=== PATIENT | female | born 1975 | race Caucasian/White ===

== ENCOUNTER 2024-01-11 14:47 | Outpatient (CLI) | payer OTHER, SELFPAY ==
[2024-01-11 15:31] LABS: Absolute Lymphocyte Count 1.94 X10^3/uL (0.83-4.51); Absolute Neutrophil Count 5.7 X10^3/uL (2.0-7.7); Basophil# 0.07 X10^3/uL; Basophil% 0.8 % (0-1); Eosinophil# 0.47 X10^3/uL; Eosinophils% 5.4 % (0-5); Hematocrit 43.3 % (37-47); Hemoglobin 14.6 g/dL (12.0-15.0); Lymphocyte # 1.94 X10^3/ul (0.83-4.51); Lymphocyte % 22.2 % (19-41); Mean Corp Hgb Conc 33.7 g/dL (32-36); Mean Corpuscular Hgb 30.1 pg (27.0-32.0); Mean Corpuscular Volume 89.3 fL (81-99); Mean Platelet Vol. 10.1 fl (6.2-12.0); Monocyte# 0.54 X10^3/uL; Monocyte% 6.2 % (0-10); NRBC Flagged by Analyzer 0 % (0-5); Neutrophil % 65.2 % (47-70); Platelet Count 271 K/mm3 (150-450); RBC Distribution Width CV 12.8 % (11.6-14.6); RBC Distribution Width SD 41.7 fl (35.1-43.9); RET-HE 33.4 pg (30-35); Red Blood Count 4.85 M/mm3 (4.2-5.4); Reticulocyte Count 1.94 % (0.5-1.5); White Blood Count 8.7 K/mm3 (4.4-11.0)
[2024-01-11 15:45] LABS: Erythrocyte Sedimentation Rate 17 mm/hr (0-30)
[2024-01-11 16:19] LABS: CPK Total, Creatine Kinase 60 U/L (26-192); CRP 7.33 mg/L (0.0-3.0); Ferritin 265 ng/mL (8-252); Free T3 2.1 pg/mL (2.18-3.98); Iron 64 ug/dL (50-170); Iron Binding Capacity,Total 290 ug/dL (250-450); Thyroid Stim Hormone (TSH) 1.84 uIU/mL (0.358-3.74); Triglycerides 457 mg/dL
[2024-01-18 06:11] LABS: Anti-Centromere B Ab <0.2 AI (0.0-0.9); Anti-Chromatin <0.2 AI (0.0-0.9); Anti-Jo <0.2 AI (0.0-0.9); Anti-Scleroderma-70 AB <0.2 AI (0.0-0.9); Anti-dsDNA Ab <1 IU/mL (0-9); Beef <0.10 kU/L (Class 0); Chocolate <0.10 kU/L (Class 0); Codfish <0.10 kU/L (Class 0); Corn 0.15 kU/L (Class 0/I); Egg, Whole <0.10 kU/L (Class 0); Mussels <0.10 kU/L (Class 0); Peanut <0.10 kU/L (Class 0); Pork 2.74 kU/L (Class III); RNP Ab <0.2 AI (0.0-0.9); SJOGREN'S Anti-SS-A test < 0.2 AI (0.0-0.9); SJOGREN'S Anti-SS-B test < 0.2 AI (0.0-0.9); Salmon <0.10 kU/L (Class 0); Shrimp <0.10 kU/L (Class 0); Smith Ab <0.2 AI (0.0-0.9); Soybean <0.10 kU/L (Class 0); Tuna <0.10 kU/L (Class 0); Wheat <0.10 kU/L (Class 0)
[2024-01-18 20:08] LABS: ACCA 26 units (0-90); AMCA 12 units (0-100); Albumin 3.5 g/dL (2.9-4.4); Aldolase 3.8 U/L (3.3-10.3); Aldosterone, Serum 7.7 ng/dL (0.0-30.0); Alpha-1-Globulins 0.2 g/dL (0.0-0.4); Alpha-2-Globulins 0.9 g/dL (0.4-1.0); Cytoplasmic Ab (C-ANCA) <1:20 titer (Neg:<1:20); Endomysial Antibody IgA Negative (Negative); IgG, Quant 995 mg/dL (586-1602); Immunoglobulin A 196 mg/dL (87-352); Immunoglobulin E 792 IU/mL (6-495); Immunoglobulin G, Subclass 1 622 mg/dL (248-810); Immunoglobulin G, Subclass 2 312 mg/dL (130-555); Immunoglobulin G, Subclass 3 26 mg/dL (15-102); Immunoglobulin G, Subclass 4 55 mg/dL (2-96); Immunoglobulin M 88 mg/dL (26-217); PROEL- TOTAL PROTEIN 6.6 g/dL (6.0-8.5); Perinuclear Ab (P-ANCA) <1:20 titer (Neg:<1:20); Serotonin, Serum 108 ng/mL (31-207); gASCA 22 units (0-50); t-Transglutaminase IgA <2 U/mL (0-3)
[2024-02-13 14:47] LABS: ALCA 4 units (0-60)
== END 2024-01-11 23:59 | disposition home or self-care (01) ==
PROVIDERS: PCP Student in an Organized Health Care Education/Training Program; Referring Provider Internal Medicine Gastroenterology; Visit Provider Internal Medicine Gastroenterology
DX: R10.9 Unspecified abdominal pain (principal)
CPT/HCPCS: 36415; 82085; 82088; 82550; 82728; 82784; 82785; 82787; 83516; 83540; 83550; 84165; 84260; 84443; 84478; 84481; 85025; 85045; 85652; 86003; 86005; 86036; 86140; 86225; 86235; 86255; 86256; 86334; 86671

== ENCOUNTER 2024-01-25 05:30 | Day surgery (SDC) | payer OTHER, SELFPAY ==
[2024-01-25] VITALS (7 sets, daily range): BP systolic 96–146; BP diastolic 69–86; PULSE 71–77; RESP 16; TEMP 36.4–36.8; O2SAT 96–99; BMI 40.5
--- NOTE | 2024-01-25 05:30 | HP_ITS ---
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: No Accompanied by: Self Is patient in pain?: Yes (Low abdomen ) Pain scale (1-10): 4 Allergies amlodipine Allergy (Intermediate, Verified 01/11/24 13:58) Otherlisinopril Allergy (Intermediate, Verified 01/11/24 13:58) Othermetoclopramide [From Reglan] Allergy (Intermediate, Verified 01/11/24 13:58) Otherorphenadrine [From Norflex] Allergy (Intermediate, Verified 01/11/24 13:58) Otherpioglitazone [From Actos] Allergy (Intermediate, Verified 01/11/24 13:58) Otherprochlorperazine [From Compazine] Allergy (Intermediate, Verified 01/11/24 13:58) Otherrizatriptan [From Maxalt] Allergy (Intermediate, Verified 01/11/24 13:58) Othersumatriptan [From Imitrex] Allergy (Intermediate, Verified 01/11/24 13:58) Other Medications albuterol sulfate 1.25 mg/3 mL solution for nebulization 1.25 mg inhalation Q4H 03/15/23 [History Confirmed 01/11/24] albuterol sulfate 90 mcg/actuation aerosol inhaler 2 puff inhalation Q6H PRN 03/15/23 [History Confirmed 01/11/24] aspirin 81 mg tablet,delayed release 81 mg PO DAILY 03/15/23 [History Confirmed 01/11/24] biotin 10 mg tablet 10 mg PO DAILY 03/15/23 [History Confirmed 01/11/24] bupropion HCl 150 mg 24 hr tablet, extended release 150 mg PO QAM 03/15/23 [History Confirmed 01/11/24] cetirizine 10 mg tablet 10 mg PO DAILY PRN 03/15/23 [History Confirmed 01/11/24] cholecalciferol (vitamin D3) 125 mcg (5,000 unit) capsule 125 mcg PO DAILY 03/15/23 [History Confirmed 01/11/24] clonidine HCl 0.3 mg tablet 0.3 mg PO BID 03/15/23 [History Confirmed 01/11/24] famotidine 20 mg tablet 20 mg PO DAILY 03/15/23 [History Confirmed 01/11/24] hyoscyamine sulfate 0.125 mg tablet 0.125 mg PO BID-QID PRN 03/15/23 [History Confirmed 01/11/24] levalbuterol HCl 0.63 mg/3 mL solution for nebulization 0.63 mg inhalation ONCE 03/15/23 [History Confirmed 01/11/24] omega-3 fatty acids-fish oil 360 mg-1,200 mg capsule (Fish Oil) 1 cap PO DAILY 03/15/23 [History Confirmed 01/11/24] omeprazole 40 mg capsule,delayed release 40 mg PO BID 03/15/23 [History Confirmed 01/11/24] propranolol 40 mg tablet 40 mg PO ONCE 03/15/23 [History Confirmed 01/11/24] spironolactone 50 mg tablet 50 mg PO DAILY 03/15/23 [History Confirmed 01/11/24] trazodone 100 mg tablet 100 mg PO DAILY 03/15/23 [History Confirmed 01/11/24] atorvastatin 10 mg tablet 10 mg PO DAILY 01/11/24 [History Confirmed 01/11/24] metformin 500 mg tablet 1,500 mg PO DAILY 01/11/24 [History Confirmed 01/11/24] montelukast 10 mg tablet 10 mg PO DAILY 01/11/24 [History Confirmed 01/11/24] ondansetron HCl 8 mg tablet 8 mg PO Q12H PRN 01/11/24 [History Confirmed 01/11/24] quetiapine 50 mg tablet 50 mg PO QHS 01/11/24 [History Confirmed 01/11/24] tirzepatide 5 mg/0.5 mL subcutaneous pen injector (Mounjaro) 5 mg subcut QWEEK 01/11/24 [History Confirmed 01/11/24] PFSH Medical History (Updated 01/13/24 @ 16:[address] Hartley Friend, DO) Abdominal pain Anxiety Asthma CKD (chronic kidney disease), stage III Cough Depression Diverticulitis Environmental allergies Fibromyalgia Hirsutism HTN (hypertension) Hypertriglyceridemia Left-sided weakness Metabolic syndrome Migraine Myocardial infarction PCOS (polycystic ovarian syndrome) Personality disorder Sleep apnea Type 2 diabetes mellitus Vitamin D deficiency Surgical History (Updated 01/11/24 @ 14:02 by Pam Crabtree) H/O vaginal hysterectomy History of bowel resection Family History (Updated 04/27/23 @ 08:26 by Karla Vallejo) Sister Asthma FibromyalgiaSon AsthmaFather Cancer Myocardial infarctionMother FibromyalgiaBrother Hypertension Menieres disease Social History (Updated 01/11/24 @ 14:02 by Pam Crabtree) Smoking Status: Never smoker Electronic Cigarette Use: not used second hand exposure: No alcohol intake: current alcohol intake frequency: holidays/special occasions only substance use type: does not use HPI HPI Details: ILSA FRANKLIN, is a 48 F who presents to the office today for GI Hx abdominal pain, N/V, diverticulitis. PMH personality disorder, claustrophobia, anxiety/depression. PCP OV 3.9. as ED f/u and management of DMII, CKD, elevated triglycerides., PCOS, vit D deficiency, metabolic syndrome. Presented to OSH ED for HTN/horrible headache/left sided weakness. Neurology started valproic acid for migraine treatment, suspected hypertensive encephalopathy causing headache or migraine headache causing HTN.; MRI brain, CTA head/neck WNL; ECG with bubble study showed intra-arterial level shunt likely through patent foramen ovale. ROS Const Constitutional: Positive for fatigue and weight change (weight loss) ENT ENT: Positive for difficulty swallowing Gastro GI: Positive for abdominal pain, bloating, change in bowel habits, constipation, diarrhea, heartburn, difficulty swallowing, excessive flatus and nausea/dyspepsia Musc Musculoskeletal: Positive for joint pain, back pain, joint swelling, muscle cramps, muscle weakness and sciatica Skin Skin: Positive for rash Neuro Neurology: Positive for Increased tone in limbs Psych Psychiatric: Positive for anxiety Endo Endocrine: Positive for fatigue and weight change (weight loss) Exam Const General: cooperative and comfortable Nutritional Appearance: average body habitus and well nourished [facility] Head: normal to inspection Ears: hearing grossly normal bilaterally Nose: external nose normal Face and sinus: normal facial exam Mouth: oral mucosae normal Throat: posterior oropharynx normal Eyes General: appearance normal, both eyes and all related structures Neck Neck: normal visual inspection Chest Chest palpation & inspection: normal inspection of the chest and normal palpation of entire chest wall Resp Effort & Inspection: normal respiratory effort Auscultation: Bilateral: Clear to Auscultation Cardio Palpation: normal PMI Rate: regular rate Rhythm: regular rhythm GI Inspection: normal to inspection Auscultation: normal bowel sounds Percussion: normal to percussion Palpation: no hepatosplenomegaly Skin General: no rashes or lesions noted Neuro General: patient alert Extrem General: normal to inspection Psych Affect: normal affect Quality Reporting Tobacco Screening ([facility] 138) Smoking Status: Former smoker Assessment and Plan Assessment and Plan (1) Abdominal pain: Status: Acute Qualifiers: Abdominal location: generalized Qualified Code(s): R10.84 - Generalized abdominal pain Plan: Very pleasant 48-year-old with past medical history of type 2 diabetes, asthma, mild depression, gastroesophageal reflux disease and PCOS who presents with worsening nausea, vomiting, diarrhea. Differential diagnosis includes medication induced gastroparesis, exocrine pancreatic insufficiency, irritable bowel syndrome, inflammatory bowel disease. She will undergo EGD and colonoscopy with biopsies. She may also need imaging depending on what the upper and lower endoscopy look like. She will also get a gastric emptying study and stool studies along with biochemical analysis. She is okay with this plan. Orders: Orders CBC W/Diff, Automated 01/11/24 R10.9 - Unspecified abdominal pain Ferritin 01/11/24 R10.9 - Unspecified abdominal pain YUNIER + Protein Elect, Serum 01/11/24 R10.9 - Unspecified abdominal pain Iron Binding Capacity,Total 01/11/24 R10.9 - Unspecified abdominal pain Celiac Disease Profile 01/11/24 R10.9 - Unspecified abdominal pain Iron 01/11/24 R10.9 - Unspecified abdominal pain Retic Panel Count 01/11/24 R10.9 - Unspecified abdominal pain ANCA 01/11/24 R10.9 - Unspecified abdominal pain CRP 01/11/24 R10.9 - Unspecified abdominal pain Erythrocyte Sed Rate 01/11/24 R10.9 - Unspecified abdominal pain Allergen, Food Profile 14 01/11/24 R10.9 - Unspecified abdominal pain Pancreatic Elastase, Fecal 01/11/24 R10.9 - Unspecified abdominal pain Thyroid Stim Hormone (TSH) 01/11/24 R10.9 - Unspecified abdominal pain IBD Expanded Profile 01/11/24 R10.9 - Unspecified abdominal pain Giardia Lamblia, Stool EIA 01/11/24 R10.9 - Unspecified abdominal pain ENTERIC PATHOGEN PANEL STOOL 01/11/24 K58.9 - Irritable bowel syndrome without diarrhea, R10.9 - Unspecified abdominal pain Immunoglobulins G/A/M/E 01/11/24 R10.9 - Unspecified abdominal pain Ova and Parasites 8623 01/11/24 K58.9 - Irritable bowel syndrome without diarrhea, R10.9 - Unspecified abdominal pain Free T3 01/11/24 R10.9 - Unspecified abdominal pain CDIFF (PCR) 01/11/24 R10.9 - Unspecified abdominal pain IgG Subclasses 01/11/24 R10.9 - Unspecified abdominal pain Triglycerides 01/11/24 R10.9 - Unspecified abdominal pain BLAIR Comprehensive Panel 01/11/24 R10.9 - Unspecified abdominal pain Serotonin, Serum 01/11/24 R10.9 - Unspecified abdominal pain Aldolase 01/11/24 R10.9 - Unspecified abdominal pain CPK Total, Creatine Kinase 01/11/24 R10.9 - Unspecified abdominal pain Aldosterone, Serum 01/11/24 R10.9 - Unspecified abdominal pain ABD Limited w/ Elastography 01/11/24 R10.9 - Unspecified abdominal pain Gastric Emptying Study 01/11/24 R10.9 - Unspecified abdominal pain EGD 01/25/24 R10.9 - Unspecified abdominal pain Colonoscopy 01/25/24 R10.9 - Unspecified abdominal pain Coding Level of Care Code Off vis,new,level 4 Diagnoses Generalized abdominal pain R10.84 Abdominal location: generalized MTDD
[2024-01-25] MEDS: Lactated Ringers 1,000 ML 15 ML IV (05:45)
--- NOTE | 2024-01-25 06:30 | IMM_PTH ---
PATHOLOGY RESULTS PATIENT: ILSA FRANKLIN LOC: EN U#:[id number] AGE/SX: 48/F ROOM: RE01/25/[address]: Dr. Naeem Cole DO : 1975 BED: DIS: 01/25/2024 SPEC #: [id number] RECD: 01/25/24 14:17 STATUS: HAMLET REQ #: [id number] SOLANGE: 01/25/24 06:[address]: Naeem Cole DEPT: IMMUNOHISTOCHEMISTRY RECD BY: Kamla Diaz ENTERED: 01/25/24 14:17 SP TYPE: IMMUNO OTHR DR: KRUPA ARAUJO DO Tissues: Stomach, NOS Procedures: H Pylori (initial) PHYSICIAN & INSTITUTION [place] [address] SPECIMEN INFORMATION: Tissue Source: B - Gastric antrum Clinical Info: Abdominal pain Specimen Number: [id number] CPT code: 39056 METHODOLOGY: Deparaffinized sections of prefer/formalin-fixed tissue or PAP/DQ stained slides are incubated with monoclonal/polyclonal antibodies/oligonucleotide probes. Localization is made via biotin free immunoperoxidase method. Appropriate controls are performed and reacted as expected. Results on target cell population are indicated in the following table: RESULTS: ANTIBODY / CLONE RESULT Block B H Pylori (polyclonal) negative These tests were developed and their performance characteristics determined by [facility]. They may not have been cleared or approved by the U.S. Food and Drug Administration. The FDA has determined that such clearance or approval is not necessary. The above immunohistochemical/dualISH markers are ordered and reviewed by the Pathologist. INTERPRETATION: B. Gastric antrum, biopsy: Negative for Helicobacter pylori organisms. AM:patti 01/28/2024
--- NOTE | 2024-01-25 06:30 | COLBX_PTH ---
PATHOLOGY RESULTS PATIENT: ILSA FRANKLIN LOC: EN U#:[id number] AGE/SX: 48/F ROOM: RE01/25/[address]: Dr. Naeem Cole DO : 1975 BED: DIS: 01/25/2024 SPEC #: [id number] RECD: 01/25/24 12:44 STATUS: HAMLET REJie #: [id number] SOLANGE: 01/25/24 06:[address]: Naeem Cole DEPT: SURGICAL PATHOLOGY RECD BY: Kaykay Chin ENTERED: 01/25/24 12:45 SP TYPE: COLON BX OTHR DR: KRUPA ARAUJO DO Tissues: Duodenum, NOS Gastric mucous membrane Ileum, NOS COLON BIOPSY Rectum, NOS Procedures: Surgery Specimen Level IV HEADER OPERATION: Colonoscopy, EGD, biopsy PRE-OP DIAGNOSIS: Abdominal pain TISSUE SUBMITTED: A - Duodenum biopsy, B - Gastric antrum biopsy for histo and H. pylori, C - Terminal ileum biopsy, D - Random colon biopsy, E - Rectal polyp biopsy MICROSCOPIC DIAGNOSIS A. Duodenum, biopsy: No pathologic change. B. Gastric antrum, biopsy: Chronic gastritis. See comment. C. Terminal ileum, biopsy: No pathologic change. D. Colon, random biopsy: No significant pathologic change. See comment. E. Rectal polyp, biopsy: Hyperplastic polyp. AM:patti 01/28/2024 COMMENT B. The results of immunohistochemistry for Helicobacter pylori will be reported separately ([id number]). D. Eosinophils are mildly increased in the mucosa. The significance of this is unclear. Clinical correlation is suggested. MICROSCOPIC DESCRIPTION Slides are reviewed. GROSS DESCRIPTION A - Received in fixative is one container labeled with the patient's name and designated duodenum biopsy. The specimen consists of two irregular fragments of light culp soft tissue that in aggregate measure 0.6 x 0.3 x 0.1 cm. The specimen is totally submitted in one cassette. B - Received in fixative is one container labeled with the patient's name and designated gastric antrum biopsy. The specimen consists of multiple irregular fragments of light culp soft tissue that in aggregate measure 0.6 x 0.5 x 0.1 cm. The specimen is totally submitted in one cassette. C - Received in fixative is one container labeled with the patient's name and designated terminal ileum biopsy. The specimen consists of multiple irregular fragments of light culp soft tissue that in aggregate measure 1.2 x 0.3 x 0.1 cm. The specimen is totally submitted in one cassette. D - Received in fixative is one container labeled with the patient's name and designated random colonic biopsy. The specimen consists of multiple irregular fragments of light culp soft tissue that in aggregate measure 1.0 x 0.3 x 0.1 cm. The specimen is totally submitted in one cassette. E - Received in fixative is one container labeled with the patient's name and designated rectal polyp biopsy. The specimen consists of one irregular fragment of light culp soft tissue that measures 0.3 x 0.3 x 0.1 cm. The specimen is totally submitted in one cassette. / SJ:rg 01/25/2024 TC:3 CPT: 59238 x5
--- NOTE | 2024-01-25 07:13 | OP.EGD_ITS ---
Patient Name: April Rosa Procedure Date: 01/25/2024 6:26 AM Date of : 1975 Age: 48 Procedure: Upper GI endoscopy Indications: Epigastric abdominal pain Providers: Naeem Cole DO Medicines: Monitored Anesthesia Care Patient Profile: This is a 48 year old female. Refer to note in patient chart for documentation of history and physical. Patient has symptoms of chronic abdominal cramping, chronic abdominal distention and chronic epigastric abdominal pain. Complications: No immediate complications. Procedure: Pre-Anesthesia Assessment: - Prior to the procedure, a History and Physical was performed, and patient medications and allergies were reviewed. The patient is competent. The risks and benefits of the procedure and the sedation options and risks were discussed with the patient. All questions were answered and informed consent was obtained. Patient identification and proposed procedure were verified by the physician. Mental Status Examination: alert and oriented. Airway Examination: normal oropharyngeal airway and neck mobility. Respiratory Examination: clear to auscultation. CV Examination: normal. Prophylactic Antibiotics: The patient does not require prophylactic antibiotics. Prior Anticoagulants: The patient has taken no anticoagulant or antiplatelet agents. After reviewing the risks and benefits, the patient was deemed in satisfactory condition to undergo the procedure. The anesthesia plan was to use monitored anesthesia care (MAC). Immediately prior to administration of medications, the patient was re-assessed for adequacy to receive sedatives. The heart rate, respiratory rate, oxygen saturations, blood pressure, adequacy of pulmonary ventilation, and response to care were monitored throughout the procedure. The physical status of the patient was re-assessed after the procedure. After obtaining informed consent, the endoscope was passed under direct vision. Throughout the procedure, the patient's blood pressure, pulse, and oxygen saturations were monitored continuously. The Colonoscope was introduced through the mouth, and advanced to the second part of duodenum. The upper GI endoscopy was accomplished without difficulty. The patient tolerated the procedure well. Scope In: 6:45:48 AM Scope Out: 6:48:53 AM Total Procedure Duration Time 0 hours 3 minutes 5 seconds Findings: The examined esophagus was normal. Patchy mildly erythematous mucosa without bleeding was found in the gastric antrum. Biopsies were taken with a cold forceps for histology. Verification of patient identification for the specimen was done. Biopsies were taken with a cold forceps for Helicobacter pylori testing. Verification of patient identification for the specimen was done. Estimated blood loss was minimal. Patchy mildly congested mucosa without active bleeding and with no stigmata of bleeding was found in the duodenal bulb and in the first portion of the duodenum. Biopsies were taken with a cold forceps for histology. Verification of patient identification for the specimen was done. Estimated blood loss was minimal. Impression: - Normal esophagus. - Erythematous mucosa in the antrum. Biopsied. - There was some retained fluid in the stomach possibly secondary to gastroparesis - Congested duodenal mucosa. Biopsied. Recommendation: - Discharge patient to home. - Resume previous diet. - Continue present medications. - Await pathology results. - Gastric emptying study Procedure Code(s): --- Professional --- 24514, Esophagogastroduodenoscopy, flexible, transoral; with biopsy, single or multiple CPT copyright 2021 [employer]. All rights reserved. The codes documented in this report are preliminary and upon bakery supervisor review may be revised to meet current compliance requirements. Naeem Cole DO 01/25/2024 7:13:09 AM This report has been signed electronically. Number of Addenda: 0 Note Initiated On: 01/25/2024 6:26 AM
--- NOTE | 2024-01-25 07:14 | OP.CCLET_ITS ---
01/25/2024 Kaycee Del Toro Do Re : Upper GI endoscopy procedure for April Rosa Dear Katey This procedure was performed on Thursday, January 25, 2024. My impressions and recommendations are as follows: Impressions : - Normal esophagus. - Erythematous mucosa in the antrum. Biopsied. - There was some retained fluid in the stomach possibly secondary to gastroparesis - Congested duodenal mucosa. Biopsied. Recommendations : - Discharge patient to home. - Resume previous diet. - Continue present medications. - Await pathology results. - Gastric emptying study My findings are described in the full procedure note, which is enclosed. If I can be of further assistance, please feel free to contact me at . Sincerely, Naeem Cole DO 01/25/2024 7:13:09 AM This report has been signed electronically.
--- NOTE | 2024-01-25 07:18 | OP.CCLET_ITS ---
01/25/2024 Kaycee Del Toro Do Re : Colonoscopy procedure for April Rosa Dear Katey This procedure was performed on Thursday, January 25, 2024. My impressions and recommendations are as follows: Impressions : - Preparation of the colon was poor. - One 5 mm polyp in the rectum, removed with a cold snare. Resected and retrieved. - Stool at the ileocecal valve. - Congested mucosa in the sigmoid colon, in the transverse colon and in the ascending colon. Biopsied. - Congested mucosa in the terminal ileum. Biopsied. Recommendations : - Discharge patient to home. - Resume previous diet. - Continue present medications. - Await pathology results. - Repeat colonoscopy in 6 months because the bowel preparation was poor. My findings are described in the full procedure note, which is enclosed. If I can be of further assistance, please feel free to contact me at . Sincerely, Naeem Cole DO 01/25/2024 7:18:03 AM This report has been signed electronically.
--- NOTE | 2024-01-25 07:18 | OP.COLON_ITS ---
Patient Name: April Rosa Procedure Date: 01/25/2024 6:49 AM Date of : 1975 Age: 48 Procedure: Colonoscopy Indications: Screening for colorectal malignant neoplasm Providers: Naeem Cole DO Medicines: Monitored Anesthesia Care Patient Profile: This is a 48 year old female. Refer to note in patient chart for documentation of history and physical. Patient has symptoms of chronic abdominal cramping, chronic abdominal distention and chronic epigastric abdominal pain. Last Colonoscopy: none. The patient's first colonoscopy is today. Complications: No immediate complications. Procedure: Pre-Anesthesia Assessment: - Prior to the procedure, a History and Physical was performed, and patient medications and allergies were reviewed. The patient is competent. The risks and benefits of the procedure and the sedation options and risks were discussed with the patient. All questions were answered and informed consent was obtained. Patient identification and proposed procedure were verified by the physician. Mental Status Examination: alert and oriented. Airway Examination: normal oropharyngeal airway and neck mobility. Respiratory Examination: clear to auscultation. CV Examination: normal. Prophylactic Antibiotics: The patient does not require prophylactic antibiotics. Prior Anticoagulants: The patient has taken no anticoagulant or antiplatelet agents. After reviewing the risks and benefits, the patient was deemed in satisfactory condition to undergo the procedure. The anesthesia plan was to use monitored anesthesia care (MAC). Immediately prior to administration of medications, the patient was re-assessed for adequacy to receive sedatives. The heart rate, respiratory rate, oxygen saturations, blood pressure, adequacy of pulmonary ventilation, and response to care were monitored throughout the procedure. The physical status of the patient was re-assessed after the procedure. After I obtained informed consent, the scope was passed under direct vision. Throughout the procedure, the patient's blood pressure, pulse, and oxygen saturations were monitored continuously. The Colonoscope was introduced through the anus and advanced to the terminal ileum. The colonoscopy was performed without difficulty. The patient tolerated the procedure well. The quality of the bowel preparation was poor. The terminal ileum, ileocecal valve, appendiceal orifice, and rectum were photographed. Scope In: 6:50:42 AM Scope Withdrawal Time 0 hours 10 minutes 6 seconds Scope Out: 7:04:19 AM Total Procedure Duration Time 0 hours 13 minutes 37 seconds Findings: The perianal and digital rectal examinations were normal. A 5 mm polyp was found in the rectum. The polyp was sessile. The polyp was removed with a cold snare. Resection and retrieval were complete. Verification of patient identification for the specimen was done. Estimated blood loss was minimal. Liquid semi-liquid semi-solid solid stool was found at the ileocecal valve, precluding visualization. An area of mildly congested mucosa was found in the sigmoid colon, in the transverse colon and in the ascending colon. Biopsies were taken with a cold forceps for histology. Verification of patient identification for the specimen was done. Estimated blood loss was minimal. A patchy area of the terminal ileum was congested. Biopsies were taken with a cold forceps for histology. Verification of patient identification for the specimen was done. Estimated blood loss was minimal. There was evidence of a prior end-to-end colo-colonic anastomosis in the sigmoid colon. This was patent and was characterized by healthy appearing mucosa. Impression: - Preparation of the colon was poor. - One 5 mm polyp in the rectum, removed with a cold snare. Resected and retrieved. - Stool at the ileocecal valve. - Congested mucosa in the sigmoid colon, in the transverse colon and in the ascending colon. Biopsied. - Congested mucosa in the terminal ileum. Biopsied. Recommendation: - Discharge patient to home. - Resume previous diet. - Continue present medications. - Await pathology results. - Repeat colonoscopy in 6 months because the bowel preparation was poor. Procedure Code(s): --- Professional --- 13854, Colonoscopy, flexible; with removal of tumor(s), polyp(s), or other lesion(s) by snare technique 40279, 59, Colonoscopy, flexible; with biopsy, single or multiple CPT copyright 2021 [employer]. All rights reserved. The codes documented in this report are preliminary and upon public address system mechanic review may be revised to meet current compliance requirements. Naeem Cole DO 01/25/2024 7:18:03 AM This report has been signed electronically. Number of Addenda: 0 Note Initiated On: 01/25/2024 6:49 AM
--- OUTSIDE RECORDS SUMMARY | 2024-01-25 07:30 | XMS RPT_ITS | CCD ---
Author Name Unknown Address [address] [place] [address] Organization [facility] Care Team Providers Care Medical Record Coder Name Role Phone Unavailable, Family Physician Attending Un available Delmer Ellis Attending Unavailable Unavailable Primary Care Provider Unavailabl e BITONTE DO, KRUPA Primary Care Physician Bassam DO, Corry Albert Primary Care Provider BITONTE DO, KRUPA Primary Care Physician BITONTE DO, KRUPA Attending Unavailable BITONTE DO, KRUPA Primary Care Unavailable BITONTE DO, KRUPA Attending Unavailable BITONTE DO, KRUPA Primary Care Unavailable BITONTE DO, KRUPA Primary Care Unavailable PLUNK DO, YAMILA Attending Unavailable LISS VANG, DR QUINONES Admitting Unavailab le BITONTE DO, KRUPA Consulting Unavailable JENNY VANG, XAVI Consulting Unavailable BETTYE VANG, DAVID Villalpando Consulting Unavaila ble KATELYN WHITT, VILMA Suggs Attending Unavailab le BITONTE DO, KRUPA Primary Care Unavailable KATELYN WHITT, VILMA Suggs Attending Unavailab le BITONTE DO, KRUPA Primary Care Unavailable BITONTE DO, KRUPA Primary Care Unavailable [employer]GER-KILN BURNER, ZOILA Villalpando Attending Unavaila babs SALEH MD, JUAN Attending Unavailable BITONTE DO, KRUPA Primary Care Unavailable BITONTE DO, KRUPA Attending Unavailable BITONTE DO, KRUPA Primary Care Unavailable BITONTE DO, KRUPA Primary Care Unavailable BITONTE DO, KRUPA Attending Unavailable BITONTE DO, KRUPA Primary Care Unavailable BITONTE DO, KRUPA Attending Unavailable Allergies Allergy Classification Reported Allergen(s) Allergy Type Date of Onset Reaction(s) Facility (4 sources) Lisinopril; Translations: [lisinopril] Drug Allergy 04-21-2020 angioedema [place] (4 sources) Magnesium Sulfate; Translations: [magnesium sulfate] Drug Allergy 04-21-2020 uncertain [place] (4 sources) Orphenadrine; Translations: [orphenadrine] Drug Allergy 04-21-2020 Anxiety [place] (4 sources) Prochlorperazine ; Translations: [prochlorperazin e] Drug Allergy 04-21-2020 Anxiety [place] (4 sources) rizatriptan; Translations: [rizatriptan] Drug Allergy 04-21-2020 Hypotension [place] (4 sources) SUMAtriptan; Translations: [sumatriptan] Drug Allergy 04-21-2020 Hypotension [place] (3 sources) amLODIPine; Translations: [amlodipine] Drug Allergy lip swelling [facility] (3 sources) Metoclopramide; Translations: [metoclopramide] Drug Allergy [facility] (1 source) pioglitazone; Translations: [pioglitazone] Drug Allergy blurred vision [facility] Medications Current Medications Medication Drug Class(es) Dates Sig (Normalized) Sig (Original) albuterol 0.83 mg/ml inhalation solution (6 sources) beta2-Adrenergic Agonist Start: 01-19-2023 take 1 dose by inhalation every four hours as needed albuterol 2.5 mg/3 mL (0.083%) inhalation solution Dose : 2.5 mg = 3 mL, Inhalation, q4h, PRN as needed for wheezing, # 100 EA, 0 Refill(s), Pharmacy: [facility]/pharmacy #[id number], 172.7, cm, 01/17/23 13:01:00 EST, Height Start Date: 01/19/23 Status: Ordered Completed/Discontinued Medications Medication Drug Class(es) Dates Sig (Normalized) Sig (Original) 0.5 ml dulaglutide 3 mg/ml auto-injector (3 sources) GLP-1 Receptor Agonist Start: 01-17-2023 Trulicity Pen 1.5 mg/0.5 mL subcutaneous solution Dose : 1.5 mg = 0.5 mL, Subcutaneous, Sunday, 0.5 mL/Pen Start Date: 01/17/23 Status: Ordered Problems Active Problems Problem Classification Problem Date Documented Date Episodic/Chronic Abdominal pain (3 sources) Abdominal pain; Translations: [Unspecified abdominal pain] Onset: 01-17-2023 02-21-2022 Episodic Allergic reactions (3 sources) Environmental allergy 02-12-2020 Episodic Anxiety disorders (4 sources) Anxiety; Translations: [Claustrophobia] 03-04-2018 Chronic Past or Other Problems Problem Classification Problem Date Documented Da te Episodic/Chronic Malaise and fatigue (4 sources) Asthenia; Translations: [Weakness] Onset: 12-27-2022 Episodic Unclassified (1 source) SCREENING Onset: 01-23-2019 Results Test Name Value Interpretation Reference Range Facil ity Vital Signs Date Time Vital Sign Value Performing Clinician Faci lity 01-19-2023 09:05-0500 Heart rate 82 /min DR JONI MACK MD [facility] 01-19-2023 09:05-0500 Respiratory rate 18 /min DR JONI MACK MD [facility] 01-19-2023 06:47-0500 Body temperature 98.24 [degF] DR JONI MACK MD [facility] 01-19-2023 06:47-0500 Diastolic Blood Pressure Non-Invasive [address] JONI MACK MD [facility] 01-19-2023 06:47-0500 Heart rate 70 /min DR JONI MACK MD [facility] 01-19-2023 06:47-0500 Reason For Taking VItal Signs DR JONI MACK MD [facility] 01-19-2023 06:47-0500 Respiratory rate 18 /min DR JONI MACK MD [facility] 01-19-2023 06:47-0500 Systolic Blood Pressure Non-Invasive [address] JONI MACK MD [facility] 01-18-2023 22:28-0500 Body temperature 97.88 [degF] DR JONI MACK MD [address] [place] [address] 01-18-2023 22:28-0500 Heart rate 74 /min DR JONI MACK MD [address] [place] [address] 01-18-2023 22:28-0500 Respiratory rate 18 /min DR JONI MACK MD [address] [place] [address] 01-18-2023 20:22-0500 Body temperature 97.34 [degF] DR JONI MACK MD [address] [place] [address] 01-18-2023 20:22-0500 Diastolic Blood Pressure Non-Invasive [address] JONI MACK MD [address] [place] [address] 01-18-2023 20:22-0500 Heart rate 75 /min DR JONI MACK MD [address] [place] [address] 01-18-2023 20:22-0500 Mean blood pressure 98 mm[Hg] DR JONI MACK MD [address] [place] [address] 01-18-2023 20:22-0500 Reason For Taking VItal Signs DR JONI MACK MD [address] [place] [address] 01-18-2023 20:22-0500 Systolic Blood Pressure Non-Invasive [address] JONI MACK MD [address] [place] [address] 01-18-2023 14:54-0500 Diastolic Blood Pressure Non-Invasive [address] JONI MACK MD [address] [place] [address] 01-18-2023 14:54-0500 Heart rate 110 /min DR JONI MACK MD [address] 01-18-2023 14:54-0500 Systolic Blood Pressure Non-Invasive [address] JONI MACK MD [address] [place] [address] 01-18-2023 11:16-0500 Heart rate 87 /min DR JONI MACK MD [address] [place] [address] 01-18-2023 07:10-0500 Heart rate 92 /min DR JONI MACK MD [address] [place] [address] 01-18-2023 02:43-0500 Body temperature 98.24 [degF] DR JONI MACK MD [address] [place] [address] 01-18-2023 02:43-0500 Heart rate 92 /min DR JONI MACK MD [address] [place] [address] 01-17-2023 22:11-0500 Body temperature 98.24 [degF] DR JONI MACK MD [address] [place] [address] 01-17-2023 19:00-0500 Reason For Taking VItal Signs DR JONI MACK MD [address] [place] [address] 01-17-2023 14:37-[address] JONI MACK MD [address] [place] [address] 01-17-2023 14:37-[address] JONI MACK MD [address] [place] [address] 01-17-2023 13:00-0500 Body height 172.[address] JONI MACK MD [address] [place] [address] 01-17-2023 13:00-0500 Body weight 130.[address] JONI MACK MD [address] [place] [address] 01-17-2023 13:00-0500 Body weight 43.86 kg/m2 DR JONI MACK MD [address] [place] [address] 01-17-2023 12:45-0500 Blood Pressure Cuff Size DR JONI MACK MD [address] [place] [address] 01-17-2023 12:45-[address] JONI MACK MD [address] [place] [address] 01-17-2023 10:21-0500 Mean blood pressure 97 mm[Hg] DR JONI MACK MD [address] [place] [address] 01-17-2023 00:45-0500 Mean blood pressure 112 mm[Hg] DR JONI MACK MD [address] [place] [address] 01-16-2023 23:55-0500 Heart rate 98 /min DR JONI MACK MD [facility] 01-16-2023 16:08-0500 Body temperature 96.98 [degF] DR JONI MACK MD [facility] 01-16-2023 16:08-0500 Body weight 130.[address] JONI MACK MD [facility] 02-24-2022 05:45-0400 Body temperature 98.42 [degF] DR NICKIE CADET MD [facility] 02-24-2022 05:45-0400 Diastolic blood pressure 119 mm[Hg] DR NICKIE CADET MD [facility] 02-24-2022 05:45-0400 Heart rate 83 /min DR NICKIE CADET MD [facility] 02-24-2022 05:45-0400 Respiratory rate 20 /min DR NICKIE CADET MD [facility] 02-24-2022 05:45-0400 Systolic blood pressure 165 mm[Hg] DR NICKIE CADET MD [facility] 04-21-2020 10:08-0400 BP Diastolic 79 mm[Hg] [facility] [place] 04-21-2020 10:08-0400 BP Systolic 130 mm[Hg] [facility] [place] 04-21-2020 10:08-0400 Pulse (Heart Rate) 78 /min [facility], [place] 04-21-2020 10:08-0400 Pulse Oximetry 97 % [facility] , [place] 04-21-2020 10:08-0400 Respiratory Rate 16 /min [facility], [place] 04-21-2020 08:40-0400 BMI (Body Mass Index) 41.97 kg/m2 Gualberto De La Vega [facility], [place] 04-21-2020 08:40-0400 Body Temperature 97.7 [degF] Gualberto De La Vega [facility], [place] 04-21-2020 08:40-0400 Body weight 125.19 kg Gualberto De La Vega [place] 04-21-2020 08:40-0400 Height 172.7 cm Gualberto De La Vega [facility] , [place] Encounters Encounter Date Encounter Type Care Provider Facility Start: 08-23-2023 End: 08-23-2023 Emergency department patient visit VILMA ZEPEDA PA-C Facility:A Start: 06-27-2023 ambulatory KRUPA BITONTE DO Facil ity:A Start: 06-20-2023 End: 06-20-2023 Emergency department patient visit KRUPA BITONTE DO Facility:A Start: 05-11-2023 ambulatory KRUPA BITONTE DO Facil ity:A Start: 01-16-2023 End: 01-19-2023 ambulatory KRUPA BITONTE DO Facility:A Start: 01-16-2023 End: 01-19-[address] JONI MACK MD [facility] Start: 12-27-2022 End: 01-01-2023 Encounter for general adult medical examination without abnormal findings KRUPA BITONTE DO Facility:A Start: 12-27-2022 End: 01-01-2023 ambulatory KRUPA BITONTE DO Facility:A Start: 12-15-2022 End: 12-16-2022 ambulatory KRUPA BITONTE DO Facility:A Start: 12-11-2022 End: 12-11-2022 Emergency department patient visit JUAN SALEH MD Facility:A Start: 09-22-2022 End: 09-22-2022 Emergency department patient visit VILMA ZEPEDA PA-C Facility:A Start: 06-13-2022 End: 06-13-2022 Subsequent hospital visit by physician Fahad Childress MD Work Phone: [facility] Procedures Date Procedure Procedure Detail Performing Clinician Start: 04-21-2020 Blood count complete auto&auto difrntl wbc Gualberto Titus Work Phone: Start: 04-21-2020 Comprehensive metabo lic panel Gualberto Serrano Tacho Work Phone: Start: 02-25-2016 Fall (finding) ELIANE HENSON MD Start: 11-19-2015 Intestinal structure (body structure) ELIANE HENSON MD Plan of Treatment Date Care Activity Detail Author Start: 07-20-2022 FLU (#1) FLU (#1) [facility] Start: 07-20-2020 Influenza vaccination Flu vacc ine (Season Ended) [place] Start: 2016 Diabetes screen Diabetes screen [place], [place] Start: 2016 Lipid panel Lipid screen [place], [place] Start: 1997 Microscopic observat ion [Identifier] in Cervix by Cyto stain Pap Smear [facility] Start: 1997 Screening for malign ant neoplasm of cervix Cervical cancer screen [place], [place] Start: 1995 DTaP/Tdap/Td vaccine (1 - Tdap) DTaP/Tdap/Td vaccine (1 - Tdap) [place] Start: 1992 MenB (1 of 2 - MenB 2-Dose Series) MenB (1 of 2 - MenB 2-Dose Series) [facility] Start: 1991 HIV screening HIV screen [place], [place] Start: 1983 Tetanus Diphtheria a nd Pertussis Vaccines (1 - Tdap) Tetanus Diphtheria and Pertussis Vaccines (1 - Tdap) [facility] Start: 1977 MMR (1 of 1 - Standa rd series) MMR (1 of 1 - Standard series) [facility] Start: 1977 Varicella (1 of 2 - 2-dose childhood series) Varicella (1 of 2 - 2-dose childhood series) [facility] Start: 1976 Creatinine measurement Creatinine mo nitoring [place], [place] Start: 1976 Potassium monitoring Potassium monit oring [place] End: 06-13-2022 SARS CoV-2 RT-PCR 1 [facility] Work Phone: Immunizations Immunization Date Immunization Notes Care Provider Vianey hanson 09-16-2022 influenza virus vaccine, unspecified formulation DR JONI MACK MD [facility] Payers Date Payer Category Payer Unknown [id number] 1975 Unknown [id number] 2.16.8 [id number] 1976 Unknown [id number] 2.16.8 [id number] 1976 Unknown [id number] 2.16.8 [id number] 1976 Unknown [id number] 2.16.8 [id number] 1976 Unknown [id number] 2.16.8 [id number] 1976 Unknown [id number] 2.16.8 [id number] 1976 Unknown [id number] 2.16.8 [id number] 1976 Unknown [id number] 2.16.8 [id number] 1976 Unknown [id number] 2.16.8 [id number] 1976 Unknown [id number] 2.16.8 [id number] Social History Date Type Detail Facility Start: 12-23-2018 End: 04-21-2020 Tobacco smoking status NHIS Never smoker [place] Start: 1975 Sex Assigned At Not on file [place] Exposure to SARS-CoV -2 (event) Unable to assess [place] Sex Assigned At Female [facility] Tobacco smoking stat [facility] Tobacco smoking consumption unknown [facility] Start: 06-03-2022 End: 06-13-2022 Exposure to SARS-CoV-2 (event) Not sure [facility] Medical Equipment Procedure Code Equipment Code Equipment Origin al Text Equipment Identifier Dates Blood Glucose Te st Strips Start: 12-02-2021 Lancets Start: 05-13-2021 See Instructions , True Metrix test strips, QS for 1 month supply. E11.9 Pt tests BID, # 1 EA, 11 Refill(s), Pharmacy: [facility] #[id number], 172, cm, 11/30/21 8:39:00 EST, Height, 136.4, kg, 11/30/21 8:39:00 EST, Dosing Weight Start: 12-02-2021 See Instructions , qs 1 month supply of [facility], E11.9 Pt tests BID, # 1 EA, 11 Refill(s), Pharmacy: [facility]/pharmacy #[id number], 172, cm, 05/11/21 12:58:00 EDT, Height, 128, kg, 05/11/21 12:58:00 EDT, Dosing Weight Start: 05-13-2021 Functional Status Date Assessment Result Facility 01-19-2023 Functional Status Independent [facility] 01-19-2023 Functional Status Room check performed [facility] 01-19-2023 Functional Status Repositions se lf, Sleeping quietly with easy respirations [facility] 01-19-2023 Functional Status [facility] 01-18-2023 Functional Status [facility] 01-18-2023 Functional Status heel(s)s elevated [facility] 01-18-2023 Functional Status Hospital bed [facility] 01-17-2023 Functional Status [facility] 01-17-2023 Functional Status Multilevel ho e, 1st floor bedroom, 1st floor bathroom, 1st floor laundry [facility] 02-24-2022 Functional Status [facility] 02-24-2022 Functional Status Anthony jenny Mental Status Date Assessment Result Facility 01-18-2023 [facility] 01-18-2023 Mental Status [facility] 02-24-2022 Mental Status [facility] 02-24-2022 Mental Status [facility] Clinical Notes 02-24-2022 to 08-26-2023 Note Date & Type Note Facility 08-26-2023 Note . MICRO - Microbiology PROCEDURE: Urine Culture [*1] SOURCE: Urine, Clean Catch BODY SITE: COLLECTED DATE/TIME: 08/23/2023 17:05 EDT RECEIVED DATE/TIME: 08/24/2023 07:03 EDT START DATE/TIME: 08/24/2023 07:03 EDT FREE TEXT SOURCE: FINAL REPORTS Final Report [] Verified Date/Time/Personnel: 08/26/2023 09:09 EDT >100,000 cfu/ml Escherichia coli PRELIMINARY REPORTS Preliminary Report [] Verified Date/Time/Personnel: 08/25/2023 13:45 EDT >100,000 cfu/ml Escherichia coli ANTHONY to follow SUSCEPTIBILITY RESULTS Escherichia coli Antibiotic ANTHONY Dilut ANTHONY Inter Ampicillin <=8 Susceptible Ampicillin/ <=4/2 Susceptible Sulbactam Aztreonam <=4 Susceptible Cefazolin <=2 Susceptible Ciprofloxacin <=0.25 Susceptible Ertapenem <=0.5 Susceptible Gentamicin <=2 Susceptible Imipenem <=1 Susceptible Levofloxacin <=0.5 Susceptible Meropenem <=1 Susceptible Minocycline <=4 Susceptible Nitrofurantoin <=32 Susceptible Trimethoprim/ <=0.5/9.5 Susceptible Sulfa Performing Locations *1: This test was performed at: [facility], [address] [place] [address], [id number] , [facility] ([place]) 01-19-2023 Hospital Discharge instructions Patient Education 01/19/2023 11:04:08 Migraine Headache, [id number] Migraine Headache A migraine headache is a very strong throbbing pain on one side or both sides of your head. This type of headache can also cause other symptoms. It can last from 4 hours to 3 days. Talk with your doctor about what things may bring on (trigger) this condition. What are the causes? The exact cause of this condition is not known. This condition may be triggered or caused by: Drinking alcohol. Smoking. Taking medicines, such as: ?Medicine used to treat chest pain (nitroglycerin). ? control pills. ?Estrogen. ?Some blood pressure medicines. Eating or drinking certain products. Doing physical activity. Other things that may trigger a migraine headache include: Having a menstrual period. . Hunger. Stress. Not getting enough sleep or getting too much sleep. Weather changes. Tiredness (fatigue). What increases the risk? Being [age] years old. Being female. Having a family history of migraine headaches. Being . Having depression or anxiety. Being very overweight. What are the signs or symptoms? A throbbing pain. This pain may: ?Happen in any area of the head, such as on one side or both sides. ?Make it hard to do daily activities. ?Get worse with physical activity. ?Get worse around bright lights or loud noises. Other symptoms may include: ?Feeling sick to your stomach (nauseous). ?Vomiting. ?Dizziness. ?Being sensitive to bright lights, loud noises, or smells. Before you get a migraine headache, you may get warning signs (an aura). An aura may include: ?Seeing flashing lights or having blind spots. ?Seeing bright spots, halos, or zigzag lines. ?Having tunnel vision or blurred vision. ?Having numbness or a tingling feeling. ?Having trouble talking. ?Having weak muscles. Some people have symptoms after a migraine headache (postdromal phase), such as: ?Tiredness. ?Trouble thinking (concentrating). How is this treated? Taking medicines that: ?Relieve pain. ?Relieve the feeling of being sick to your stomach. ?Prevent migraine headaches. Treatment may also include: ?Having acupuncture. ?Avoiding foods that bring on migraine headaches. ?Learning ways to control your body functions (biofeedback). ?Therapy to help you know and deal with negative thoughts (cognitive behavioral therapy). Follow these instructions at home: Medicines Take fjhh-kfh-osagrqf and prescription medicines only as told by your doctor. Ask your doctor if the medicine prescribed to you: ?Requires you to avoid driving or using heavy machinery. ?Can cause trouble pooping (constipation). You may need to take these steps to prevent or treat trouble pooping: ?Drink enough fluid to keep your pee (urine) pale yellow. ?Take zrds-cjy-zjwyzdl or prescription medicines. ?Eat foods that are high in fiber. These include beans, whole grains, and fresh fruits and vegetables. ?Limit foods that are high in fat and sugar. These include fried or sweet foods. Lifestyle Do not drink alcohol. Do not use any products that contain nicotine or tobacco, such as cigarettes, e-cigarettes, and chewing tobacco. If you need help quitting, ask your doctor. Get at least 8 hours of sleep every night. Limit and deal with stress. General instructions Keep a journal to find out what may bring on your migraine headaches. For example, write down: ?What you eat and drink. ?How much sleep you get. ?Any change in what you eat or drink. ?Any change in your medicines. If you have a migraine headache: ?Avoid things that make your symptoms worse, such as bright lights. ?It may help to lie down in a dark, quiet room. ?Do not drive or use heavy machinery. ?Ask your doctor what activities are safe for you. Keep all follow-up visits as told by your doctor. This is important. Contact a doctor if: You get a migraine headache that is different or worse than others you have had. You have more than 15 headache days in one month. Get help right away if: Your migraine headache gets very bad. Your migraine headache lasts longer than 72 hours. You have a fever. You have a stiff neck. You have trouble seeing. Your muscles feel weak or like you cannot control them. You start to lose your balance a lot. You start to have trouble walking. You pass out (faint). You have a seizure. Summary A migraine headache is a very strong throbbing pain on one side or both sides of your head. These headaches can also cause other symptoms. This condition may be treated with medicines and changes to your lifestyle. Keep a journal to find out what may bring on your migraine headaches. Contact a doctor if you get a migraine headache that is different or worse than others you have had. Contact your doctor if you have more than 15 headache days in a month. This information is not intended to replace advice given to you by your health care provider. Make sure you discuss any questions you have with your health care provider. Document Released: 08/14/2009 Document Revised: 02/27/2020 Document Reviewed: 12/18/2019 [employer] Patient Education 2020 [employer]. Follow Up Care 01/16/2023 16:07:19 With:[facility] Address: [phone] When: only if needed With:KRUPA ARAUJO DO, Internal Medicine, [facility], [facility] sub group Address: [address] [facility] [address] [place] [address]- When: Unknown Comments:Please call the office to schedule a follow up appointment [facility] 01-19-2023 Note Discharge Instructions Thank you for allowing [facility] to assist you with your healthcare needs. The following is important discharge information regarding your hospital visit. Your Care Team KRUPA ARAUJO DO Your Diagnosis Migraine Hypertension Type 2 diabetes mellitus Left-sided weakness Abdominal pain Cough Ovarian cyst What to do next Instructions From Your Doctor Continue medications as prescribed. Check blood pressure at home in the morning before taking medications. Follow-up with your PCP and neuro care. Scheduled Follow-Up Appointments Appointment Type When With Where Contact InformationJOSÉ LUISO ANAIS 01/25/2023 02:45 PM ELIANE PATEL MD [facility] Endocrinology [place] [facility] Office Procedure Holter Monitor 01/26/2023 09:30 AM [facility] Appointments Follow Up with [facility] When Only if needed Where: [phone] Follow Up with KRUPA ARAUJO DO, Internal Medicine, [facility], [facility] sub group When Why: Please call the office to schedule a follow up appointment Where: [address] [facility] [address] [place] [address]- The Following Activity and Diet Have Been Ordered for You Discharge Activity - Ordered -- Resume your pre-hospitalization activity, 01/19/23 10:00:00 EST Discharge Diet - Ordered -- Type of Diet: Regular, 01/19/23 10:00:00 EST The Following Equipment Has Been Ordered for You Discharge Home Equipment Discharge Blood Glucose Monitoring - Ordered -- When to Test: Before each meal and at bedtime The Following Treatments Have Been Ordered for You Discharge Labs Discharge Outpatient Labwork - Ordered -- cbc, cmp, follow up, follow-up within: 5-7 days, Results Notify to: KRUPA ARAUJO DO, 01/19/23 10:00:00 EST Discharge Radiology No qualifying data available. Other Therapies Discharge Blood Glucose Monitoring - Ordered -- When to Test: Before each meal and at bedtime Discharge to Outpatient OT - Ordered -- Therapy Order: Outpatient OT Eval and Treat, weakness, Reason: Decreased ADL function, 01/19/23 10:00:00 EST Discharge to Outpatient OT - Ordered -- Therapy Order: Outpatient OT Eval and Treat, left sided weakness, Reason: Decreased ADL function, 01/19/23 10:44:00 EST Discharge to Outpatient PT - Ordered -- Therapy Order: Outpatient PT Eval and Treat, weakness, Reason: Weakness, 01/19/23 10:00:00 EST Post Acute Orders No qualifying data available. Someone Will Contact You Regarding These Home Health Referrals No home referrals have been ordered for you. No one will call you. Allergies Imitrex (Hypotension) amLODIPine (lip swelling) Actos (blurred vision) Compazine (Anxiety) Maxalt (Hypotension) Norflex (Anxiety) Reglan lisinopril (angioedema) magnesium sulfate (uncertain) Medications Please ask your primary doctor or pharmacist before taking any other medication not listed, including over the counter drugs, herbal medications, vitamins and or supplements as they may interact with your home medications. What How Much When Why Instructions Last Dose New aspirin (aspirin 81 mg oral tablet, chewable) 1 tab(s) by mouth Once a day with a meal Pickup at [facility]/pharmacy #[id number] Changed albuterol (Albuterol (Eqv-ProAir HFA) 90 mcg/ inh inhalation aerosol) 2 puff(s) by inhalation Every 4 hours as needed for as needed for wheezing Pickup at [facility]/pharmacy #[id number] Changed albuterol (albuterol 2.5 mg/ 3 mL (0.083%) inhalation solution) 3 Milliliter by inhalation Every 4 hours as needed for as needed for wheezing Pickup at [facility]/pharmacy #[id number] Unchanged atorvastatin (atorvastatin 10 mg oral tablet) 1 tab(s) by mouth Once a day Unchanged biotin (biotin 10 mg oral tablet) 1 tab(s) by mouth Once a day Unchanged buPROPion (buPROPion 150 mg/ 24 hours (XL) oral tablet, extended release) 1 tab(s) by mouth Once a day Unchanged cetirizine (cetirizine 10 mg oral capsule) 1 cap by mouth Once a day as needed for as needed for allergy symptoms Unchanged cholecalciferol (Vitamin D3 125 mcg (5000 intl units) oral capsule) 1 cap by mouth Once a day with food Unchanged cloNIDine (cloNIDine 0.3 mg oral tablet) 1 tab(s) by mouth Two (2) times a day Unchanged dicyclomine (dicyclomine 20 mg oral tablet) 1 tab(s) by mouth Three (3) times a day as needed for abdominal discomfort Unchanged dulaglutide (Trulicity Pen 1.5 mg/ 0.5 mL subcutaneous solution) 0.5 Milliliter Subcutaneous Every Sunday Unchanged famotidine (famotidine 20 mg oral tablet) 1 tab(s) by mouth Once a day Unchanged hyoscyamine (hyoscyamine 0.125 mg sublingual tablet) 1 tab(s) under the tongue Every 4 hours as needed for Control symptoms Unchanged hyoscyamine (Levsin 0.125 mg oral tablet) 1 tab(s) by mouth Four (4) times a day Abdominal pain Ovarian cyst As needed for pain Unchanged insulin aspart-insulin aspart protamine (Novolog Mix 70/ 30) (NovoLOG Mix 70/ 30 FlexPen 3 mL Pen) 10 unit(s) Subcutaneous Two (2) times a day Unchanged levalbuterol (Xopenex 0.63 mg/ 3 mL inhalation solution) 3 Milliliter Nebulized inhalation Three (3) times a day as needed for as needed for wheezing Unchanged metFORMIN (metFORMIN 500 mg oral tablet (IR)) 3 tab(s) by mouth Once a day Unchanged multivitamin (Multivitamin) 1 tab(s) by mouth Once a day Unchanged omega-3 polyunsaturated fatty acids (Fish Oil 1200 mg oral capsule) 1 cap by mouth Once a day Unchanged omeprazole (omeprazole 40 mg oral delayed release capsule) 1 cap by mouth Two (2) times a day Unchanged ondansetron (ondansetron 8 mg oral tablet, disintegrating) 1 tab(s) by mouth Three (3) times a day as needed for Nausea/Vomiting Unchanged propranolol (propranolol 40 mg oral tablet) 1 tab(s) by mouth Once a day Unchanged QUEtiapine (QUEtiapine 50 mg oral tablet) 1 tab(s) by mouth Once a day Unchanged spironolactone (spironolactone 25 mg oral tablet) 1 tab(s) by mouth Once a day Unchanged traZODone (traZODone 100 mg oral tablet) 1 tab(s) by mouth Daily at bedtime Pharmacy Information [facility]/pharmacy #[id number]: [id number], [place] [id number] [phone] Please take this list to your next doctor s visit. Bring all medications you take, including over the counter medications, herbals and other supplements with you to your doctor s visit. Patients and families are reminded to discard old lists and to update any records with all medication providers or retail pharmacies. Education Materials Migraine Headache A migraine headache is a very strong throbbing pain on one side or both sides of your head. This type of headache can also cause other symptoms. It can last from 4 hours to 3 days. Talk with your doctor about what things may bring on (trigger) this condition. What are the causes? The exact cause of this condition is not known. This condition may be triggered or caused by: Drinking alcohol. Smoking. Taking medicines, such as: ? Medicine used to treat chest pain (nitroglycerin). ? control pills. ? Estrogen. ? Some blood pressure medicines. Eating or drinking certain products. Doing physical activity. Other things that may trigger a migraine headache include: Having a menstrual period. . Hunger. Stress. Not getting enough sleep or getting too much sleep. Weather changes. Tiredness (fatigue). What increases the risk? Being [age] years old. Being female. Having a family history of migraine headaches. Being . Having depression or anxiety. Being very overweight. What are the signs or symptoms? A throbbing pain. This pain may: ? Happen in any area of the head, such as on one side or both sides. ? Make it hard to do daily activities. ? Get worse with physical activity. ? Get worse around bright lights or loud noises. Other symptoms may include: ? Feeling sick to your stomach (nauseous). ? Vomiting. ? Dizziness. ? Being sensitive to bright lights, loud noises, or smells. Before you get a migraine headache, you may get warning signs (an aura). An aura may include: ? Seeing flashing lights or having blind spots. ? Seeing bright spots, halos, or zigzag lines. ? Having tunnel vision or blurred vision. ? Having numbness or a tingling feeling. ? Having trouble talking. ? Having weak muscles. Some people have symptoms after a migraine headache (postdromal phase), such as: ? Tiredness. ? Trouble thinking (concentrating). How is this treated? Taking medicines that: ? Relieve pain. ? Relieve the feeling of being sick to your stomach. ? Prevent migraine headaches. Treatment may also include: ? Having acupuncture. ? Avoiding foods that bring on migraine headaches. ? Learning ways to control your body functions (biofeedback). ? Therapy to help you know and deal with negative thoughts (cognitive behavioral therapy). Follow these instructions at home: Medicines Take facv-uxe-suutbku and prescription medicines only as told by your doctor. Ask your doctor if the medicine prescribed to you: ? Requires you to avoid driving or using heavy machinery. ? Can cause trouble pooping (constipation). You may need to take these steps to prevent or treat trouble pooping: ? Drink enough fluid to keep your pee (urine) pale yellow. ? Take gedq-fev-jonjded or prescription medicines. ? Eat foods that are high in fiber. These include beans, whole grains, and fresh fruits and vegetables. ? Limit foods that are high in fat and sugar. These include fried or sweet foods. Lifestyle Do not drink alcohol. Do not use any products that contain nicotine or tobacco, such as cigarettes, e-cigarettes, and chewing tobacco. If you need help quitting, ask your doctor. Get at least 8 hours of sleep every night. Limit and deal with stress. General instructions Keep a journal to find out what may bring on your migraine headaches. For example, write down: ? What you eat and drink. ? How much sleep you get. ? Any change in what you eat or drink. ? Any change in your medicines. If you have a migraine headache: ? Avoid things that make your symptoms worse, such as bright lights. ? It may help to lie down in a dark, quiet room. ? Do not drive or use heavy machinery. ? Ask your doctor what activities are safe for you. Keep all follow-up visits as told by your doctor. This is important. Contact a doctor if: You get a migraine headache that is different or worse than others you have had. You have more than 15 headache days in one month. Get help right away if: Your migraine headache gets very bad. Your migraine headache lasts longer than 72 hours. You have a fever. You have a stiff neck. You have trouble seeing. Your muscles feel weak or like you cannot control them. You start to lose your balance a lot. You start to have trouble walking. You pass out (faint). You have a seizure. Summary A migraine headache is a very strong throbbing pain on one side or both sides of your head. These headaches can also cause other symptoms. This condition may be treated with medicines and changes to your lifestyle. Keep a journal to find out what may bring on your migraine headaches. Contact a doctor if you get a migraine headache that is different or worse than others you have had. Contact your doctor if you have more than 15 headache days in a month. This information is not intended to replace advice given to you by your health care provider. Make sure you discuss any questions you have with your health care provider. Document Released: 08/14/2009 Document Revised: 02/27/2020 Document Reviewed: 12/18/2019 [employer] Patient Education 2020 [employer] Additional Information VACCINATE! IT SAVES LIVES! Members of the community who have not yet received the COVID-19 vaccine and would like to receive it can visit one of [facility] vaccine clinics. There are many vaccine clinic locations within the [facility]. For locations and available times, please visit https://gettheshot.coronavirus.[place].gov/. It is important to note that some COVID mobile vaccine clinics are held outdoors and may be canceled in rainy or stormy conditions. To learn more about pediatric vaccinations (ages 5-11), we invite you to visit the [facility] webpage. https://www.[email or web address].org/p ages/7332-Sdfsq-Flrajuqqslt-Freq sslvia-Uvkpb-Ypfplnayj.html To learn more about the COVID-19 vaccine, we invite you to visit the CDC website for a list of frequently asked questions. https://www.cdc.gov/coronavirus/ 2019-ncov/vaccines/faq.html [facility] Patient Portal Access Instructions: Stay connected with your healthcare team and access your personal medical information anytime with the [facility] Patient Portal.If you would like a full copy of your medical records, please contact the [facility] Medical Records Department, Sunday through Sunday between 8a.m. and 4:30p.m. Please follow the directions below to access the portal: 1.Access the email account you provided upon registration to the [facility].2.Look for an invitation email from [facility].3.Open the email and access the invitation link: Accept Invitation to [facility]4.Fill in the required garcia to create your account. Sign into [email or web address].[email or web address] with your username and password that you created in the above steps to stay up to date. You can then view a summary of results, a summary of your visits, and the ability to download your summaries to your computer or send the information securely to a physician. Remember that your healthcare information is confidential, so carefully consider who you will allow to register on the [facility] Patient Portal for access to your information. You can also access the [facility] Patient Portal on the [employer] demario. Simply click on Health Records under Health Data and then click on the [facility] logo. HOW TO SAFELY DISPOSE OF PRESCRIPTION MEDICATIONS Please use one of the following methods to safely dispose of your unused medications. 1.Use a drug disposal kit: the drug disposal pouch allows you to safely discard your old and unused drugs. Ask your nurse to give you one when you are discharged.2.Visit a local take-back location: Many local pharmacies and police departments have programs that collect old and unwanted prescription drugs. Call your local pharmacy or go to http://bit.Near Page/5C1Cq8o to find one close to you.3.Make use of household items: Use cat litter or old coffee grounds to dispose medications if other options are not available. Mix your drugs with these household products, seal them in an airtight container and throw it into the garbage. Call [facility]: [phone] to be sure your drugs can be disposed of in this way. Some medicines may require a different approach.4.Never flush your medications down the toilet. IF YOU HAVE BEEN PRESCRIBED AN OPIOID FOR PAIN If you have been prescribed an opioid (such as hydrocodone, oxycodone or morphine), it is critical to understand the possible side effects and risks of opioid pain medications. Even when taken as directed, opioids can have several side effects including: Tolerance, meaning you might need to take more of a medication for the same pain relief. Nausea, vomiting and/or constipation. Sleepiness, dizziness, dry mouth, confusion, depression or itching. Physical dependence, meaning you have withdrawal symptoms when a medication is stopped, can develop within a few days. KNOW YOUR RESPONSIBILITIES It is important to know exactly how much and how often to take the opioid pain medications you are prescribed. Never take opioids in higher amounts or more often than prescribed. Do not combine opioids with alcohol or other drugs that cause drowsiness, such as benzodiazepines, also known as benzos, including diazepam and alprazolam, muscle relaxants or sleep aids. Never sell or share prescription opioids. This is illegal. Store opioids in a secure place and out of reach of others (including children, family, friends and visitors). The last page of this document has been signed and retained as a CHART COPY. Signatures Patient Education Materials Migraine Headache, Lwue-qy-Inmp Medication Leaflets My discharge plan and instructions have been reviewed and explained to me and I,ILSA FRANKLIN understand my current condition and have read and understand these discharge instructions. I have received a written copy of the plan/instructions. If I have questions, I am aware that I should contact my doctor. 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 Migraine (G43.909 - ICD-10-CM) 2. Hypertension ([id number] - PNED) 3. Type 2 diabetes mellitus (E11.9 - ICD-10-CM) 4. Left-sided weakness (R53.1 - ICD-10-CM) Hospital Course Patient is a 47-year-old female with past medical history of anxiety, CKD 3, depression, diabetes mellitus type 2, hypertension, fibromyalgia, hyperlipidemia, PCOS who presented to the ED for elevated blood pressure. Patient also reports having a horrible headache. Neurology consulted and started the patient on valproic acid treatment for migraine. Also complained of left-sided arm weakness and numbness. MRI of the brain was done showing no acute abnormality. The patient also had CTA of the head and neck which showed nothing acute as well. Echocardiogram with bubble study shows a intra-arterial level shunt likely through a patent foramen ovale, otherwise normal echo. Per neurology, patient either had hypertensive encephalopathy leading to headache or migraine headache with severe hypertension. PT/OT recommends outpatient therapy. Labs and vitals reviewed. BP has been better controlled. Migraine headache has resolved. Patient was able to eat and drink this morning and is currently not nauseous. Discussed with patient that she will need to monitor her blood pressures at home. Patient is medically stable for discharge home. She will follow up with her PCP and neuro care. D/w Dr. Ann. Allergies Imitrex (Hypotension) amLODIPine (lip swelling) Actos (blurred vision) Compazine (Anxiety) Maxalt (Hypotension) Norflex (Anxiety) Reglan lisinopril (angioedema) magnesium sulfate (uncertain) Consults Consult to Physician - Ordered -- 01/17/23 9:56:00 JENNY FUNK ERIC MD, Routine, left sided weakness, ?complex migraine Imaging Results and Diagnostics MRI Brain w/o Contrast Result Date: January 17, 2023 Verified By: KADE WATSON DO CLINICAL STATEMENT: IMPRESSION: No acute intracranial abnormality. Mild chronic microvascular angiopathy. CT Angiography Neck w/ Contrast Result Date: January 17, 2023 Verified By: PELON HAYNES MD CLINICAL STATEMENT: IMPRESSION: No hemodynamically significant ICA stenosis. Patent vertebral arteries. I have personally reviewed the images of this examination and agree with theresident's findings and interpretation. CT Angiography Head w/ Contrast Result Date: January 17, 2023 Verified By: PELON HAYNES MD CLINICAL STATEMENT: IMPRESSION: No large vessel occlusion or hemodynamically significant stenosis. I have personally reviewed the images of this examination and agree with bharati's findings and interpretation. CT Head or Brain w/o Contrast Result Date: January 17, 2023 Verified By: PELON HAYNES MD CLINICAL STATEMENT: IMPRESSION: No acute intracranial abnormality. XR Chest 1 View Result Date: January 16, 2023 Verified By: UMAIR LUONG MD CLINICAL STATEMENT: IMPRESSION: No acute abnormality is identified. Physical Exam Vitals and Measurements T: 36.8 C (Oral) TMIN: 36.3 C (Oral) TMAX: 36.8 C (Oral) HR: 70 RR: 18 BP: 103/65 SpO2: 93% Weight Dosing Weight: 130.8 kg (01/17/23) Dosing Weight: 130.8 kg (01/16/23) General: NAD. Alert and Appropriate Skin: No rash. Warm, Dry, Intact HEENT: Head is normocephalic and atraumatic. No lesions. Pupils equal in size. Nose: No septal deviation. Mouth: Oropharynx mucosa is without lesion. Neck: Supple. No lymphadenopathy, thyromegaly noted. Lungs: Bilaterally diminished breath sounds with no crepitation or wheeze. Unlabored Cardiovascular: Heart is regular rhythm, S1S2, No extra-audible heart tones Abdomen: Abdomen is soft, nontender. Bowel sounds positive all four quadrants. Extremities: No clubbing, cyanosis or edema. Peripheral pulses palpable. No calf tenderness. Adequate peripheral circulation. Neurological: The patient is awake, oriented to time, people and place. Following simple commands, moving all extremities. Code Status Code Status - Ordered -- 01/17/23 2:06:00 EST, Full Code, Constant Order Admission Date 01/16/2023 Discharge Date 01/19/2023 Patient Instructions Continue medications as prescribed. Check blood pressure at home in the morning before taking medications. Follow-up with your PCP and neuro care. Medications New Prescription aspirin (aspirin 81 mg oral tablet, chewable)1 tab(s) by mouth once a day with a meal. Refills: 0. Changed albuterol (Albuterol (Eqv-ProAir HFA) 90 mcg/inh inhalation aerosol)2 puff(s) by inhalation every 4 hours as needed as needed for wheezing. Refills: 0. albuterol (albuterol 2.5 mg/3 mL (0.083%) inhalation solution)3 Milliliter by inhalation every 4 hours as needed as needed for wheezing. Refills: 0. Unchanged atorvastatin (atorvastatin 10 mg oral tablet)1 tab(s) by mouth once a day. biotin (biotin 10 mg oral tablet)1 tab(s) by mouth once a day. buPROPion (buPROPion 150 mg/24 hours (XL) oral tablet, extended release)1 tab(s) by mouth once a day. cetirizine (cetirizine 10 mg oral capsule)1 cap by mouth once a day as needed as needed for allergy symptoms. cholecalciferol (Vitamin D3 125 mcg (5000 intl units) oral capsule)1 cap by mouth once a day. with food. cloNIDine (cloNIDine 0.3 mg oral tablet)1 tab(s) by mouth two (2) times a day. dicyclomine (dicyclomine 20 mg oral tablet)1 tab(s) by mouth three (3) times a day as needed abdominal discomfort. dulaglutide (Trulicity Pen 1.5 mg/0.5 mL subcutaneous solution)0.5 Milliliter Subcutaneous every Sunday. famotidine (famotidine 20 mg oral tablet)1 tab(s) by mouth once a day. hyoscyamine (hyoscyamine 0.125 mg sublingual tablet)1 tab(s) under the tongue every 4 hours as needed Control symptoms. hyoscyamine (Levsin 0.125 mg oral tablet)1 tab(s) by mouth four (4) times a day. As needed for pain. Refills: 0. insulin aspart-insulin aspart protamine (Novolog Mix 70/30) (NovoLOG Mix 70/30 FlexPen 3 mL Pen)10 unit(s) Subcutaneous two (2) times a day. levalbuterol (Xopenex 0.63 mg/3 mL inhalation solution)3 Milliliter Nebulized inhalation three (3) times a day as needed as needed for wheezing. metFORMIN (metFORMIN 500 mg oral tablet (IR))3 tab(s) by mouth once a day. multivitamin (Multivitamin)1 tab(s) by mouth once a day. omega-3 polyunsaturated fatty acids (Fish Oil 1200 mg oral capsule)1 cap by mouth once a day. omeprazole (omeprazole 40 mg oral delayed release capsule)1 cap by mouth two (2) times a day. ondansetron (ondansetron 8 mg oral tablet, disintegrating)1 tab(s) by mouth three (3) times a day as needed Nausea/Vomiting. propranolol (propranolol 40 mg oral tablet)1 tab(s) by mouth once a day. QUEtiapine (QUEtiapine 50 mg oral tablet)1 tab(s) by mouth once a day. spironolactone (spironolactone 25 mg oral tablet)1 tab(s) by mouth once a day. traZODone (traZODone 100 mg oral tablet)1 tab(s) by mouth daily at bedtime. Follow Up Follow Up with [facility] When Within 1-2 days, only if needed Where: Follow Up with KRUPA ARAUJO DO, Internal Medicine, [facility], [facility] sub group When Within 1-2 days Why: Please call the office to schedule a follow up appointment Where: [address] [place] [address]- Follow Up Appointments No qualifying data available. Follow Up Labs/Studies Discharge Labs Discharge Outpatient Labwork - Ordered -- cbc, cmp, follow up, follow-up within: 5-7 days, Results Notify to: KRUPA ARAUJO DO, 01/19/23 10:00:00 EST Discharge Studies Discharge to Outpatient OT - Ordered -- Therapy Order: Outpatient OT Eval and Treat, weakness, Reason: Decreased ADL function, 01/19/23 10:00:00 EST Discharge to Outpatient PT - Ordered -- Therapy Order: Outpatient PT Eval and Treat, weakness, Reason: Weakness, 01/19/23 10:00:00 EST Discharge Diet Discharge Diet - Ordered -- Type of Diet: Regular, 01/19/23 10:00:00 EST Discharge Activity Discharge Activity - Ordered -- Resume your pre-hospitalization activity, 01/19/23 10:00:00 EST Condition on Discharge Stable Discharge Disposition Home with outpatient therapy Information Provided To Patient Time Spent 36 minutes Digitally Signed by MIKA ARCE on 01/19/2023 10:02 AM [facility] 01-18-2023 Neurology Progress note Date of Service January 18, 2023 Chief Complaint Headache Subjective Patient is an MRI of the brain which showed no abnormalities. She was treated with IV valproic acid. She is currently sleeping soundly which is one of the better treatments for migraine so I did not wake her to reivew at this time. Objective Vitals and Measurements T: 36.5 C (Oral) TMIN: 36.3 C (Oral) TMAX: 36.8 C (Axillary) HR: 92(Apical) RR: 18 BP: 137/85 BP: 166/106(Sitting) BP: 116/106(Supine) SpO2: 93% HT: 172.7 cm WT: 130.8 kg BMI: 43.86 Intake and Output 7AM Yesterday to 7AM Today Intake and Output (Last 24 hours) Intake Output Total Summary Total Intake 0.00 Total Output 0.00 Fluid Balance 0.00 Physical Exam Weight Dosing Weight: 130.8 kg (01/17/23) Dosing Weight: 130.8 kg (01/16/23) Asleep. Blood pressure has improved. Medications Medications (28) Active Scheduled: (16) aspirin 81 mg Chewable 81 mg 1 tab(s), Oral, qDayM atorvastatin 10 mg tablet 10 mg 1 tab(s), Oral, qDay bupropion 150 mg/24 hours ER tablet 150 mg 1 tab(s), Oral, qDay cholecalciferol 125 mcg capsule (Vit D3 5000 unit(s)) 125 mcg 1 cap(s), Oral, qDay cloNIDine 0.3 mg tablet 0.3 mg 1 tab(s), Oral, BID DME 10 mg, Oral, qDay famotidine 20 mg tablet 20 mg 1 tab(s), Oral, qDay insulin isophane-insulin regular human recombinant 70 units-30 units/mL (3 mL) Rosalee 10 unit(s) 0.1 mL, Subcutaneous, BID multivitamin tablet 1 tab(s), Oral, qDay [id number] ethyl esters 1000 mg capsule 1,000 mg 1 cap(s), Oral, qDay pantoprazole 40 mg EC tablet 40 mg 1 tab(s), Oral, breakfast/supper propranolol 40 mg tablet 40 mg 1 tab(s), Oral, qDay QUEtiapine 50 mg tablet 50 mg 1 tab(s), Oral, qDay spironolactone 25 mg tablet 25 mg 1 tab(s), Oral, qDay traZODONE 100 mg Tablet 100 mg 1 tab(s), Oral, qHS valproate sodium 500 mg 5 mL, IV Piggyback, TID Continuous: (0) PRN: (12) acetaminophen 325 mg Tablet 650 mg 2 tab(s), Oral, q6hWA albuterol 0.083% Soln UD (2.5mg/3 mL) 2.5 mg 3 mL, Inhalation, q2hRT dicyclomine 10 mg capsule 20 mg 2 cap(s), Oral, TID hydralazine 20 mg/mL (1mL) vial 10 mg 0.5 mL, IV Push, QID hyoscyamine 0.125 mg ORAL tablet 0.125 mg 1 tab(s), Sublingual, q4h loratadine 10 mg Tablet 10 mg 1 tab(s), Oral, qDay LORAZEPam 2 mg/mL 1 mL vial 1 mg 0.5 mL, IV Push, Once melatonin 3 mg tablet 3 mg 1 tab(s), Oral, qHS melatonin 3 mg tablet 3 mg 1 tab(s), Oral, qHS morphine 2 mg/mL 1 mL syringe 2 mg 1 mL, IV Push, Once ondansetron 2 mg/ 1 mL 2 mL INJ 4 mg 2 mL, IV Push, q4h ondansetron 4 mg DIS tablet 4 mg 1 tab(s), Oral, q6h Lab Results No 36 Hour Lab Data Imaging Results and Diagnostics MRI Brain w/o Contrast Result Date: January 17, 2023 Verified By: KADE WATSON DO CLINICAL STATEMENT: IMPRESSION: No acute intracranial abnormality. Mild chronic microvascular angiopathy. I reviewed this images online - cz CT Angiography Neck w/ Contrast Result Date: January 17, 2023 Verified By: PELON HAYNES MD CLINICAL STATEMENT: IMPRESSION: No hemodynamically significant ICA stenosis. Patent vertebral arteries. I have personally reviewed the images of this examination and agree with theresident's findings and interpretation. CT Angiography Head w/ Contrast Result Date: January 17, 2023 Verified By: PELON HAYNES MD CLINICAL STATEMENT: IMPRESSION: No large vessel occlusion or hemodynamically significant stenosis. I have personally reviewed the images of this examination and agree with theresident's findings and interpretation. CT Head or Brain w/o Contrast Result Date: January 17, 2023 Verified By: PELON HAYNES MD CLINICAL STATEMENT: IMPRESSION: No acute intracranial abnormality. XR Chest 1 View Result Date: January 16, 2023 Verified By: UMAIR LUONG MD CLINICAL STATEMENT: IMPRESSION: No acute abnormality is identified. EKG No qualifying data available. Assessment/Plan Hypertension She either had hypertensive encephalopathy leading to headache or migraine headache with severe hypertension. Regardless both hypertension and headache contributed. She can continue IV valproate if her headache persists if it has resolved it can be discontinued. She will need to continue with aggressive blood pressure regimen. No structural abnormalities on MRI. Orders: valproic acid, Start: 01/17/23 16:00:00 EST, Dose = 500 mg, = 5 mL, IV Piggyback, TID, Rate: 100 mL/hr, Infuse over: 60 minute(s), 0, 01/17/23 15:43:00 EST Digitally Signed by DAVID WEN MD on 01/18/2023 10:37 AM [facility] 01-18-2023 Note Date of Service 01/18/2023 Chief Complaint Nausea Subjective Patient is a 47-year-old female with past medical history of anxiety, CKD 3, depression, diabetes mellitus type 2, hypertension, fibromyalgia, hyperlipidemia, PCOS who presented to the ED for elevated blood pressure. Patient also reports having a horrible headache. Neurology consulted and started the patient on valproic acid treatment for migraine. Also complained of left-sided arm weakness and numbness. MRI of the brain was done showing no acute abnormality. The patient also had CTA of the head and neck which showed nothing acute as well. Echocardiogram with bubble study shows a intra-arterial level shunt likely through a patent foramen ovale, otherwise normal echo. Per neurology, patient either had hypertensive encephalopathy leading to headache or migraine headache with severe hypertension. PT/OT recommends outpatient therapy. Patient seen and examined resting in bed. Complaining of nausea and a headache. States that she has not been able to eat. States that she was vomiting all night. But has not yet vomited this morning. Denied dizziness, chest pain, shortness of breath, diarrhea or problems with urination. Objective Vitals and Measurements T: 36.5 C (Oral) TMIN: 36.3 C (Oral) TMAX: 36.8 C (Axillary) HR: 92(Apical) RR: 18 BP: 137/85 BP: 166/106(Sitting) BP: 116/106(Supine) SpO2: 93% HT: 172.7 cm WT: 130.8 kg BMI: 43.86 Intake and Output 7AM Yesterday to 7AM Today Intake and Output (Last 24 hours) Intake Output Total Summary Total Intake 0.00 Total Output 0.00 Fluid Balance 0.00 Physical Exam Physical Exam General: Appears uncomfortable. Alert and Appropriate Skin: No rash. Warm, Dry, Intact HEENT: Head is normocephalic and atraumatic. No lesions. Pupils equal in size. Extraocular movements within normal limits. Nose: No septal deviation. Mouth: Oropharynx mucosa is without lesion. Neck: Supple. No lymphadenopathy, thyromegaly noted. Lungs: Bilaterally diminished breath sounds with no crepitation or wheeze. Unlabored Cardiovascular: Heart is regular rhythm, S1S2, No extra-audible heart tones Abdomen: Abdomen is soft, nontender. Bowel sounds positive all four quadrants. Extremities: No clubbing, cyanosis or edema. Peripheral pulses palpable. No calf tenderness. Adequate peripheral circulation. Neurological: The patient is awake, oriented to time, people and place. Following simple commands, moving all extremities. Weight Dosing Weight: 130.8 kg (01/17/23) Dosing Weight: 130.8 kg (01/16/23) Medications Medications (28) Active Scheduled: (16) aspirin 81 mg Chewable 81 mg 1 tab(s), Oral, qDayM atorvastatin 10 mg tablet 10 mg 1 tab(s), Oral, qDay bupropion 150 mg/24 hours ER tablet 150 mg 1 tab(s), Oral, qDay cholecalciferol 125 mcg capsule (Vit D3 5000 unit(s)) 125 mcg 1 cap(s), Oral, qDay cloNIDine 0.3 mg tablet 0.3 mg 1 tab(s), Oral, BID DME 10 mg, Oral, qDay famotidine 20 mg tablet 20 mg 1 tab(s), Oral, qDay insulin isophane-insulin regular human recombinant 70 units-30 units/mL (3 mL) Rosalee 10 unit(s) 0.1 mL, Subcutaneous, BID multivitamin tablet 1 tab(s), Oral, qDay [id number] ethyl esters 1000 mg capsule 1,000 mg 1 cap(s), Oral, qDay pantoprazole 40 mg EC tablet 40 mg 1 tab(s), Oral, breakfast/supper propranolol 40 mg tablet 40 mg 1 tab(s), Oral, qDay QUEtiapine 50 mg tablet 50 mg 1 tab(s), Oral, qDay spironolactone 25 mg tablet 25 mg 1 tab(s), Oral, qDay traZODONE 100 mg Tablet 100 mg 1 tab(s), Oral, qHS valproate sodium 500 mg 5 mL, IV Piggyback, TID Continuous: (0) PRN: (12) acetaminophen 325 mg Tablet 650 mg 2 tab(s), Oral, q6hWA albuterol 0.083% Soln UD (2.5mg/3 mL) 2.5 mg 3 mL, Inhalation, q2hRT dicyclomine 10 mg capsule 20 mg 2 cap(s), Oral, TID hydralazine 20 mg/mL (1mL) vial 10 mg 0.5 mL, IV Push, QID hyoscyamine 0.125 mg ORAL tablet 0.125 mg 1 tab(s), Sublingual, q4h loratadine 10 mg Tablet 10 mg 1 tab(s), Oral, qDay LORAZEPam 2 mg/mL 1 mL vial 1 mg 0.5 mL, IV Push, Once melatonin 3 mg tablet 3 mg 1 tab(s), Oral, qHS melatonin 3 mg tablet 3 mg 1 tab(s), Oral, qHS morphine 2 mg/mL 1 mL syringe 2 mg 1 mL, IV Push, Once ondansetron 2 mg/ 1 mL 2 mL INJ 4 mg 2 mL, IV Push, q4h ondansetron 4 mg DIS tablet 4 mg 1 tab(s), Oral, q6h Lab Results No 36 Hour Lab Data Imaging Results and Diagnostics MRI Brain w/o Contrast Result Date: January 17, 2023 Verified By: KADE WATSON DO CLINICAL STATEMENT: IMPRESSION: No acute intracranial abnormality. Mild chronic microvascular angiopathy. CT Angiography Neck w/ Contrast Result Date: January 17, 2023 Verified By: PELON HAYNES MD CLINICAL STATEMENT: IMPRESSION: No hemodynamically significant ICA stenosis. Patent vertebral arteries. I have personally reviewed the images of this examination and agree with theresident's findings and interpretation. CT Angiography Head w/ Contrast Result Date: January 17, 2023 Verified By: PELON HAYNES MD CLINICAL STATEMENT: IMPRESSION: No large vessel occlusion or hemodynamically significant stenosis. I have personally reviewed the images of this examination and agree with theresident's findings and interpretation. CT Head or Brain w/o Contrast Result Date: January 17, 2023 Verified By: PELON HAYNES MD CLINICAL STATEMENT: IMPRESSION: No acute intracranial abnormality. XR Chest 1 View Result Date: January 16, 2023 Verified By: UMAIR LUONG MD CLINICAL STATEMENT: IMPRESSION: No acute abnormality is identified. EKG No qualifying data available. Assessment/Plan Abdominal pain Cough Hypertension Ovarian cyst Left-sided weakness- Has a history of TIA and multiple presentations in the past for a variety of complaints. Concern for cerebrovascular process, complex migraine, or anxiety. MRI of the brain was done showing no acute abnormality. The patient also had CTA of the head and neck which showed nothing acute as well. Migraine headache- Neurology following, continue with valproic acid IV. MRI of the brain unremarkable as above. Per neurology, patient either had hypertensive encephalopathy leading to headache or migraine headache with severe hypertension. Labile blood pressures- Allergic to amlodipine, lisinopril with lip swelling and wheezing.Continue home clonidine. BP stable overnight. DM2 Continue glycemic regimen Fibromyalgia- Chronic. Continue medications. HLD-on statin Full Code PT/OT recommends outpatient therapy DVT prophylaxis: SCDs D/w Dr. Ann Time Spent 23 minutes Digitally Signed by MIKA ARCE on 01/18/2023 12:41 PM [facility] 01-17-2023 Note ORIGINAL EXAMINATION: MRI OF THE BRAIN WITHOUT CONTRAST 01/17/2023 4:29 pm TECHNIQUE: Multiplanar multisequence MRI of the brain was performed without the administration of intravenous contrast. COMPARISON: 01/17/2023 and 01/16/2023, earlier HISTORY: ORDERING SYSTEM PROVIDED HISTORY: Reason for Exam: TIA FINDINGS: Motion artifacts obscure some details. INTRACRANIAL STRUCTURES/VENTRICLES: No abnormal restricted diffusion or susceptibility. No mass effect or midline shift. No evidence of an acute intracranial hemorrhage. Few scattered white matter FLAIR hyperintensities are nonspecific but statistically most consistent with mild chronic microvascular angiopathy. Other numerous perivascular spaces most prominently in the inferior basal ganglia regions. Small right greater than left hippocampal remnant cysts. The ventricles and sulci are normal in size and configuration. The sellar/suprasellar regions appear unremarkable. The normal signal voids within the major intracranial vessels appear maintained. ORBITS: The visualized portion of the orbits demonstrate no acute abnormality. SINUSES: Mild scattered paranasal sinus mucosal thickening. BONES/SOFT TISSUES: The bone marrow signal intensity appears normal. The soft tissues demonstrate no acute abnormality. Remote calcified subdermal scalp nodule near the parietal vertex. IMPRESSION: No acute intracranial abnormality. Mild chronic microvascular angiopathy. Interpreted by: Kade Watson Preliminary Report By: Kade Watson Electronically signed By Kade Watson Dictated Date: 01/17/2023 4:32:30 PM Prelim Date: 01/17/2023 4:36:00 PM Sign Date: 01/17/2023 4:36:00 PM Ordering Provider: [facility] 01-17-2023 Neurology Consult note Date of Service January 17, 2023 Reason for Consultation Spells Referring Physician Dr. Mack History of Present Illness The patient describes a difficulty with blood pressure the past several weeks. She had change in her function at work and colleagues at work and been concerned. 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 Blood pressure has been difficult to control. On amlodipine losartan led to face swelling. She is currently on clonidine 0.3 mg twice daily still having trouble with her blood pressure. Can increase she had a sense of lightheadedness possibly panic and impending sense of doom and numbness. Difficult to describe all of the symptoms Ángela. Regardless found to have marked elevated blood pressure. She underwent a CT CTA which showed no abnormalities. She does have a history of migraine but may have stopped after hysterectomy. Today she had nausea and headache. The past week she has had influenza A and influenza B. In the past Dilaudid and Phenergan were helpful for headache. Review of Systems Positive blood pressure, positive migraine in the past, positive stress otherwise unremarkable comprehenisve review of systems Physical Exam Vitals and Measurements T: 36.3 C (Oral) TMIN: 36.3 C (Oral) TMAX: 36.7 C (Oral) HR: 87(Apical) RR: 18 BP: 164/101 BP: 166/106(Sitting) BP: 116/106(Supine) SpO2: 96% HT: 172.7 cm WT: 130.8 kg BMI: 43.86 Weight Dosing Weight: 130.8 kg (01/17/23) Dosing Weight: 130.8 kg (01/16/23) AxOx3 Anxious and nauseated Cognitive - mental status intact to fund of knowledge, speech, language, short and jail memory. Cranial nerves - 2,3,4,5,6,7,8,9,10,11,12 intact. Funduscopic exam limited by equipment failure Motor exam - Full strength in the arms and leg. Normal bulk and tone. No tremor. Sensory exam - intact throughout. Reflexes - 2/4 in the arms and legs. No pathologic reflexes. Cerebellar exam - no ataxia on finger to nose. Gait - normal. No peripheral edema. Pulses intact. Lab Results 01/16 19:44 WBC: 8.1 Hgb: 14.7 Hct: 43.3 Platelet: 227 Neutrophil %: 56.4 Glucose Level: 165 H Sodium Level: 138 Potassium Level: 3.7 BUN: 11.0 Creatinine Lvl (s): 1.07 Imaging Results and Diagnostics CT Abdomen/Pelvis CT Abdomen/Pelvis w/o Contrast Result Date: December 11, 2022 IMPRESSION: Thickened bladder wall may be due to under distension versus cystitis.Please correlate with urinalysis. 4.3 cm simple appearing left ovarian cyst. No follow-up imaging is necessary. I have personally reviewed the images of this examination and agree with theresident's findings and interpretation. I reviewed the central nervous system imaging and agree with below CT Angiography Neck w/ Contrast Result Date: January 17, 2023 Verified By: PELON HAYNES MD CLINICAL STATEMENT: IMPRESSION: No hemodynamically significant ICA stenosis. Patent vertebral arteries. I have personally reviewed the images of this examination and agree with theresident's findings and interpretation. CT Angiography Head w/ Contrast Result Date: January 17, 2023 Verified By: PELON HAYNES MD CLINICAL STATEMENT: IMPRESSION: No large vessel occlusion or hemodynamically significant stenosis. I have personally reviewed the images of this examination and agree with theresident's findings and interpretation. CT Head or Brain w/o Contrast Result Date: January 17, 2023 Verified By: PELON HAYNES MD CLINICAL STATEMENT: IMPRESSION: No acute intracranial abnormality. XR Chest 1 View Result Date: January 16, 2023 Verified By: UMAIR LUONG MD CLINICAL STATEMENT: IMPRESSION: No acute abnormality is identified. Assessment/Plan Orders: valproic acid, Start: 01/17/23 16:00:00 EST, Dose = 500 mg, = 5 mL, IV Piggyback, TID, Rate: 100 mL/hr, Infuse over: 60 minute(s), 0, 01/17/23 15:43:00 EST Hypertension, headache, nausea, vomiting spells of undetermined etiology. Possible she has a hypertensive encephalopathy. There could be elements of anxiety and also migraine. Will treat with valproic acid IV. Give Ativan on-call to MRI for claustrophobia. Phenergan is not available to give IV. Continue as needed Zofran. She needs to work with the primary medical team to get her blood pressure under control. Hydralazine was ineffective. Problem List/Past Medical History Ongoing Abdominal pain Anxiety Asthma CKD (chronic kidney disease), stage III Claustrophobia Cough Depression, major, recurrent, moderate Diabetes mellitus, type II (Raghunathan) Environmental allergies Essential hypertension Fibromyalgia Gastrointestinal distress Glasses High triglycerides Hirsutism Hypercholesterolemia Metabolic syndrome Morbid obesity Nausea & vomiting PCOS (polycystic ovarian syndrome) Personality disorder Sleep apnea Spasm Vitamin D deficiency Historical Diverticulitis Fall Migraine Myocardial infarction Suicidal behavior Procedure/Surgical History Bowel: 2016 Fall: 02/25/16 History of vaginal hysterectomy: 05/2012 Stress testing using pharmacologic-induced stress Medications Inpatient acetaminophen, 650 mg= 2 tab(s), Oral, q6hWA, PRN albuterol 2.5 mg/3 mL (0.083%) inhalation solution, 2.5 mg= 3 mL, Inhalation, q2hRT, PRN aspirin, 81 mg= 1 tab(s), Oral, qDayM atorvastatin, 10 mg= 1 tab(s), Oral, qDay biotin 10 mg oral tablet, 10 mg, Oral, qDay buPROPion 150 mg/24 hours (XL) oral tablet, extended release, 150 mg= 1 tab(s), Oral, qDay cloNIDine, 0.3 mg= 1 tab(s), Oral, BID dicyclomine, 20 mg= 2 cap(s), Oral, TID, PRN famotidine, 20 mg= 1 tab(s), Oral, qDay HumuLIN 70/30, 10 unit(s)= 0.1 mL, Subcutaneous, BID hydrALAZINE, 10 mg= 0.5 mL, IV Push, QID, PRN hyoscyamine 0.125 mg sublingual tablet, 0.125 mg= 1 tab(s), Sublingual, q4h, PRN loratadine, 10 mg= 1 tab(s), Oral, qDay, PRN melatonin, 3 mg= 1 tab(s), Oral, qHS, PRN melatonin, 3 mg= 1 tab(s), Oral, qHS, PRN Multivitamin, 1 tab(s), Oral, qDay [place]-3 1000 mg oral capsule, 1000 mg= 1 cap(s), Oral, qDay pantoprazole, 40 mg= 1 tab(s), Oral, breakfast/supper propranolol, 40 mg= 1 tab(s), Oral, qDay QUEtiapine, 50 mg= 1 tab(s), Oral, qDay spironolactone, 25 mg= 1 tab(s), Oral, qDay traZODone, 100 mg= 1 tab(s), Oral, qHS valproic acid IVPB Vitamin D3 125 mcg (5000 intl units) oral capsule, 125 mcg= 1 cap(s), Oral, qDay Zofran, 4 mg= 2 mL, IV Push, q4h, PRN Zofran ODT, 4 mg= 1 tab(s), Oral, q6h, PRN Home Albuterol (Eqv-ProAir HFA) 90 mcg/inh inhalation aerosol, 2 puff(s), Inhalation, q4h, PRN albuterol 2.5 mg/3 mL (0.083%) inhalation solution, 2.5 mg= 3 mL, Inhalation, q4h, PRN atorvastatin 10 mg oral tablet, 10 mg= 1 tab(s), Oral, qDay biotin 10 mg oral tablet, 10 mg= 1 tab(s), Oral, qDay buPROPion 150 mg/24 hours (XL) oral tablet, extended release, 150 mg= 1 tab(s), Oral, qDay cetirizine 10 mg oral capsule, 10 mg= 1 cap(s), Oral, qDay, PRN cloNIDine 0.3 mg oral tablet, 0.3 mg= 1 tab(s), Oral, BID dicyclomine 20 mg oral tablet, 20 mg= 1 tab(s), Oral, TID, PRN famotidine 20 mg oral tablet, 20 mg= 1 tab(s), Oral, qDay Fish Oil 1200 mg oral capsule, 1200 mg= 1 cap(s), Oral, qDay hyoscyamine 0.125 mg sublingual tablet, 0.125 mg= 1 tab(s), Sublingual, q4h, PRN Levsin 0.125 mg oral tablet, 0.125 mg= 1 tab(s), Oral, QID metFORMIN 500 mg oral tablet (IR), 1500 mg= 3 tab(s), Oral, qDay Multivitamin, 1 tab(s), Oral, qDay NovoLOG Mix 70/30 FlexPen 3 mL Pen, 10 unit(s), Subcutaneous, BID omeprazole 40 mg oral delayed release capsule, 40 mg= 1 cap(s), Oral, BID ondansetron 8 mg oral tablet, disintegrating, 8 mg= 1 tab(s), Oral, TID, PRN propranolol 40 mg oral tablet, 40 mg= 1 tab(s), Oral, qDay QUEtiapine 50 mg oral tablet, 50 mg= 1 tab(s), Oral, qDay spironolactone 25 mg oral tablet, 25 mg= 1 tab(s), Oral, qDay traZODone 100 mg oral tablet, 100 mg= 1 tab(s), Oral, qHS Trulicity Pen 1.5 mg/0.5 mL subcutaneous solution, 1.5 mg= 0.5 mL, Subcutaneous, Sunday Vitamin D3 125 mcg (5000 intl units) oral capsule, 125 mcg= 1 cap(s), Oral, qDay Xopenex 0.63 mg/3 mL inhalation solution, 0.63 mg= 3 mL, Nebulized, TID, PRN Allergies Imitrex (Hypotension) amLODIPine (lip swelling) Actos (blurred vision) Compazine (Anxiety) Maxalt (Hypotension) Norflex (Anxiety) Reglan lisinopril (angioedema) magnesium sulfate (uncertain) Social History Smoking Status - 08/28/2018 Never smoker Alcohol - Denies Alcohol Use, 06/25/2017 Frequency: 1-2 times per year., 09/22/2019 Sexual Sexually active: Yes. First active at age: 17 Years. Self described orientation: Straight or heterosexual. History of sexual abuse: No. Gender Identity: Identifies as female., 09/24/2019 Substance Abuse - Denies Substance Abuse, 06/25/2017 Tobacco Tobacco Use: Never (less than 100 in lifetime)., 12/23/2018 Family History Asthma: Sister and Son. Cancer: Father. Diabetes mellitus: Daughter. Fibromyalgia: Mother and Sister. HTN - Hypertension: Brother. Heart attack: Father. Meniere's disease 11-AUG-2014 16:50:41<$>: Brother. Immunizations SARS-CoV-2 mRNA (tozinameran) vaccine: 0 unknown unit (09/12/22) SARS-CoV-2 mRNA (tozinameran) vaccine: 0.3 unknown unit (02/25/21) SARS-CoV-2 mRNA (tozinameran) vaccine: 0.3 unknown unit (01/28/21) tetanus-diphtheria toxoids: 0 unknown unit (10/01/13) Digitally Signed by DAVID WEN MD on 01/17/2023 04:25 PM [facility] 01-17-2023 Note ORIGINAL EXAMINATION: MRI OF THE BRAIN WITHOUT CONTRAST 01/17/2023 4:29 pm TECHNIQUE: Multiplanar multisequence MRI of the brain was performed without the administration of intravenous contrast. COMPARISON: 01/17/2023 and 01/16/2023, earlier HISTORY: ORDERING SYSTEM PROVIDED HISTORY: Reason for Exam: TIA FINDINGS: Motion artifacts obscure some details. INTRACRANIAL STRUCTURES/VENTRICLES: No abnormal restricted diffusion or susceptibility. No mass effect or midline shift. No evidence of an acute intracranial hemorrhage. Few scattered white matter FLAIR hyperintensities are nonspecific but statistically most consistent with mild chronic microvascular angiopathy. Other numerous perivascular spaces most prominently in the inferior basal ganglia regions. Small right greater than left hippocampal remnant cysts. The ventricles and sulci are normal in size and configuration. The sellar/suprasellar regions appear unremarkable. The normal signal voids within the major intracranial vessels appear maintained. ORBITS: The visualized portion of the orbits demonstrate no acute abnormality. SINUSES: Mild scattered paranasal sinus mucosal thickening. BONES/SOFT TISSUES: The bone marrow signal intensity appears normal. The soft tissues demonstrate no acute abnormality. Remote calcified subdermal scalp nodule near the parietal vertex. IMPRESSION: No acute intracranial abnormality. Mild chronic microvascular angiopathy. Interpreted by: Kade Watson Preliminary Report By: Kade Watson Electronically signed By Kade Watson Dictated Date: 01/17/2023 4:32:30 PM Prelim Date: 01/17/2023 4:36:00 PM Sign Date: 01/17/2023 4:36:00 PM Ordering Provider: JONI MACK [facility] 01-17-2023 Note Date of Service 01/17/2023 Patient is a 47-year-old female with past medical history of anxiety, CKD 3, depression, diabetes mellitus type 2, hypertension, fibromyalgia, hyperlipidemia, PCOS who presented to the ED for elevated blood pressure. Patient was admitted by Dr. Mack this morning, please refer to H&P for further details of HPI assessment and plan. Patient reports since her CT today head and neck she has been having a horrible headache. Headache is worsened by light but not sound. Patient reports she has a history of migraines and this is unlike her migrainous headaches she has previously had patient is requesting something as the Tylenol did not help her headache. We discussed the fact that she has many allergies to migraine medications, will trial a small dose of morphine and consult neurology for further recommendations. Continues to complain of left-sided arm weakness and numbness. Her main concern is her accelerated hypertension and the whooshing sensation she feels. Continue with current plan as outlined including MRI, echo with bubble for TIA/CVA work-up. CT Angiography Neck w/ Contrast Result Date: January 17, 2023 Verified By: PELON HAYNES MD CLINICAL STATEMENT: IMPRESSION: No hemodynamically significant ICA stenosis. Patent vertebral arteries. I have personally reviewed the images of this examination and agree with theresident's findings and interpretation. CT Angiography Head w/ Contrast Result Date: January 17, 2023 Verified By: PELON HAYNES MD CLINICAL STATEMENT: IMPRESSION: No large vessel occlusion or hemodynamically significant stenosis. I have personally reviewed the images of this examination and agree with theresident's findings and interpretation. CT Head or Brain w/o Contrast Result Date: January 17, 2023 Verified By: PELON HAYNES MD CLINICAL STATEMENT: IMPRESSION: No acute intracranial abnormality. XR Chest 1 View Result Date: January 16, 2023 Verified By: UMAIR LUONG MD CLINICAL STATEMENT: IMPRESSION: No acute abnormality is identified. Constitutional: Patient is alert and oriented x3. In no acute distress. Eyes: PERRLA, EOM intact. ENT: hearing grossly intact, mucous membranes moist, Respiratory: Breathing nonlabored, lungs clear to auscultation bilaterally. Heart: Regular rate and rhythm. S1 S2 heard. GI: Bowel sounds x4 quadrants. No rebound tenderness or guarding. Neuro: speech clear. NG equally. memory intact Skin: no rashes or lesions noted. skin warm, dry and intact. Discussed w/ Dr Henson. Digitally Signed by JOHN NUNO APRN-MAXIMUS on 01/17/2023 02:42 PM [facility] Left-sided weakness. Patient reports onset of left-sided weakness occurring today at 4 PM. Strength discrepancy with left lower extremity and upper extremity weaker than the right. Has a history of TIA and multiple presentations in the past for a variety of complaints. However, this weakness is new according to the patient. Concern for cerebrovascular process, complex migraine, or anxiety. Father had history of brain tumor. -MRI brain -Given the disabling nature of apparent symptoms and onset 4 PM, CTA head and neck will be ordered in the ED. If no LVO or clinically significant stenosis, the patient is appropriate for admission to our facility on stepdown. -Echo with bubble -Lipid profile Labile blood pressures. Patient with self-reported numbers in healthcare setting checked by attending physician at 208/107. 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 Allergic to amlodipine, lisinopril with lip swelling and wheezing. Possibly also beta-blockers. With these episodes she is symptomatic with head rushing, weakness, visual changes. Continue home clonidine Recommend considering transition to thiazide to avoid rebound hypertension with clonidine after TIA/CVA work-up. She should be monitored for allergic reaction. DM2. Glucose elevated 165. Continue home medications Fibromyalgia. Chronic. Will address on medications once verified. HLD. Elevates patient's risk of cerebrovascular process. As above, check lipid profile. Medications were not verified by pharmacy at the time of this dictation. Reconciliation to be completed once medications are verified; will address additional chronic medical problems at that time. DVT prophylaxis: SCDs Note dictated using voice recognition software and may contain typographical errors. Addendum by JONI MACK MD on January 17, 2023 03:57:[address] angiography head and neck shows no LVO or hemodynamically significant carotid artery stenosis. Plan to observe patient as above with evaluation for left-sided numbness/deficits. Medications not yet verified. They will need reconciled. Future Appointments Appointment Date:01/25/2023 02:45:00 PM Scheduled Provider:ELIANE HENSON MD Location:[facility] Appointment Type:[facility] Appointment Date:01/26/2023 09:30:00 AM Scheduled Provider: Location:[facility] Appointment Type:[facility] Office Procedure Holter Monitor Future Scheduled Tests Laboratory* COVID SARS PCR Screen ([facility] Only) 12/27/22 * COVID SARS PCR Screen ([facility] Only) 09/07/22 * Urinalysis 12/15/22 * Testosterone Level Total 06/22/22 * Complete Blood Count 09/07/22 * Lipid Profile 06/22/22 * Lipid Profile 03/29/22 * Lipid Profile 10/19/22 * IgA 10/04/22 * Microalbumin Level Urine 06/22/22 * Complete Metabolic Panel 06/22/22 [facility] 03-01-2023 Respiratory therapy Hospital Progress note Respiratory Therapy Evaluation Entered On: 01/17/2023 10:22 EST Performed On: 01/17/2023 10:22 EST by JOEL Samayoa Respiratory Therapy Evaluation Pulmonary Status : Pulmonary disorder Surgical Status : No surgeries Chest X-Ray : Clear/not ordered Breath Sounds (RT) : Clear Respiratory Pattern (RT) : Regular RR=12-20 Cough (RT) : Strong, non-productive Respiratory Therapy Evaluation Score : 3 Level of Activity : Ambulatory Mental Status : Alert, oriented Respiratory Evaluation Triage Score : 5 - (0-5) Freq: Q4RT prn RT Assessment [Frequency/Schedule] : prn JOEL Samayoa - 01/17/2023 10:22 EST Digitally Signed by JOEL Samayoa on 01/17/2023 10:22 AM [id number] History and physical note Date of Service 01/17/23 Chief Complaint Pt monitors her blood pressure regularly at home. 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 History obtained by patient, ED physician, chart review. She statesthat since having the flu 2 weeks ago she has been having a variety of symptoms including flushing in her head, whooshing sounds in her ears, weakness which is generalized, decreased energy, inability to take several steps without shortness of breath, intermittent blurry vision, and associated panic symptoms. Symptoms have been lasting for variety of time and typically the flushing spells go awayafter seconds. Checks blood pressure regularly and had attending physician check at her work and was found to have BP 208/107. She checks regularly at home and has found it to be consistently high. She is on clonidine outpatient and states that she gets lip swelling, wheezing, edema in the lower extremities with amlodipine, lisinopril, and also probably beta-blockers. At approximately 4 PM, the patient states she had strength discrepancy between the left upper and lower extremity with weakness compared to the right. In the emergency department she has elevated BP 166/117. Saturations adequate on room air. Afebrile. Not tachycardic. Respirations up to 24. CBC with no leukocytosis, anemia, abnormal platelet count. BMP with glucose 165. CT head shows no acute intracranial abnormality. CXR with no acute findings. She was given 500 cc NS, 4 mg Zofran, one 1 g Tylenol. Review of Systems Pertinent review of systems are included in the HPI. All other systems were reviewed and are negative for acute changes from the patient's baseline. Physical Exam Vitals and Measurements T: 36.1 C (Temporal Artery) HR: 86(Monitored) RR: 16 BP: 142/94 SpO2: 95% WT: 130.8 kg Weight Dosing Weight: 130.8 kg (01/16/23) GA: AAOx3, NAD : No CVAT or suprapubic tenderness Abd: Soft nontender nondistended BS+. Obese body habitus. HEENT: oral mucosa moist. NCAT Pulmonary: lungs CTA bilaterally, no respiratory distress MSK: no gross deformities Cardiovascular: RRR, no MRG Skin: warm and dry Neuro: Patient reports sensation discrepancy with left upper and lower extremity with decreased sensation relative to the right. She also has a strength discrepancy 3-4+ on the left and 4+ on the right. Cranial nerves II through XII are intact. Lab Results 01/16 19:44 WBC: 8.1 10^3/mcL (01/16/23:44:00) RBC: 4.88 10^6/mcL (01/16/23:44:00) Hgb: 14.7 G/dL (01/16/23:44:00) Hct: 43.3 % (01/16/23:44:00) MCV: 88.6 fL (01/16/23:44:00) MCH: 30 pg (01/16/23:44:00) MCHC: 33.9 G/dL (01/16/23:44:00) RDW: 13.9 % (01/16/23:44:00) Platelet: 227 10^3/mcL (01/16/23:44:00) MPV: 8.1 fL (01/16/23:44:00) Monocyte Distribution Width: 16.83 (01/16/23:44:00) Neutrophil %: 56.4 % (01/16/23:44:00) Lymphocyte %: 27.1 % (01/16/23:44:00) Monocyte %: 6.4 % (01/16/23 19:44:00) Eosinophil %: 9.2 % High (01/16/23:44:00) Basophil %: 0.9 % (01/16/23:44:00) Neutrophil, Absolute: 4.5 10^3/mcL (01/16/23:44:00) Lymphocyte, Absolute: 2.2 10^3/mcL (01/16/23 19:44:00) Monocyte, Absolute: 0.5 10^3/mcL (01/16/23:44:00) Eosinophil, Absolute: 0.7 10^3/mcL (01/16/23:44:00) Basophil, Absolute: 0.1 10^3/mcL (01/16/23:44:00) Glucose Level: 165 mg/dL High (01/16/23:44:00) Sodium Level: 138 mEq/L (01/16/23:44:00) Potassium Level: 3.7 mEq/L (01/16/23:44:00) Chloride: 104 mEq/L (01/16/23:44:00) CO2: 29 mEq/L (01/16/23 19:44:00) Electrolyte Balance: 5 mEq/L (01/16/23 19:44:00) BUN: 11 mg/dL (01/16/23 19:44:00) Creatinine Lvl (s): 1.07 mg/dL (01/16/23 19:44:00) BUN/Creatinine Ratio: 10.3 ratio (01/16/23 19:44:00) Calcium Lvl: 9.8 mg/dL (01/16/23 19:44:00) Total Protein: 6.6 G/dL (12/27/22 08:51:00) Albumin Level: 3.6 G/dL (12/27/22 08:51:00) Globulin: 3 G/dL (12/27/22 08:51:00) A/G Ratio: 1.2 ratio (12/27/22 08:51:00) Bili Total: 0.7 mg/dL (12/27/22 08:51:00) Alk Phos: 107 U/L (12/27/22 08:51:00) AST/SGOT: 16 U/L (12/27/22 08:51:00) ALT/SGPT: 23 U/L (12/27/22 08:51:00) GFR Non-: 55 ml/min/1.73sqm (01/16/23 19:44:00) GFR : >60 (01/16/23 19:44:00) Troponin I High Sensitivity: 2.5 ng/L (01/16/23 19:44:00) TSH: 2.179 mIU/mL (12/27/22 08:51:00) Free T4: 1.08 ng/dL (12/27/22 08:51:00) SARS-CoV-2 PCR: Cepheid Neg (01/16/23 19:44:00) FLU A PCR: Cepheid Neg (01/16/23 19:44:00) FLU B PCR: Cepheid Neg (01/16/23 19:44:00) RSV PCR: Cepheid Neg (01/16/23 19:44:00) Lab Performed By: Devora Laws ([employer] Teacher) (12/27/22 10:22:00) Lab Performing Location: [facility] [id number] [facility] [address] (12/27/22 10:22:00) POC Test Comments: called to [facility] (12/27/22 10:22:00) Influenza A (AMB POC): Negative (12/27/22 10:22:00) Influenza B (AMB POC): Positive (Abnormal) (12/27/22 10:22:00) Imaging Results and Diagnostics CT Head or Brain w/o Contrast Result Date: January 17, 2023 Verified By: PELON HAYNES MD CLINICAL STATEMENT: IMPRESSION: No acute intracranial abnormality. XR Chest 1 View Result Date: January 16, 2023 Verified By: UMAIR LUONG MD CLINICAL STATEMENT: IMPRESSION: No acute abnormality is identified. Assessment/Plan Left-sided weakness. Patient reports onset of left-sided weakness occurring today at 4 PM. Strengthdiscrepancy with left lower extremity and upper extremity weaker than the right. Has a history of TIA and multiple presentations in the past for a variety of complaints. However, this weakness is newaccording to the patient. Concern for cerebrovascular process, complex migraine, or anxiety. Fatherhad history of brain tumor. -MRI brain -Given the disabling nature of apparent symptoms and onset 4 PM, CTA head and neck will be ordered in the ED. If no LVO or clinically significant stenosis, the patient is appropriate for admission toour facility on stepdown. -Echo with bubble -Lipid profile Labile blood pressures. Patient with self-reported numbers in healthcare setting checked by attending physician at 208/107. 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 Allergic to amlodipine, lisinopril with lip swelling and wheezing. Possibly also beta-blockers. With these episodes she is symptomatic with head rushing, weakness, visual changes. Continue home clonidine Recommend considering transition to thiazide to avoid rebound hypertension with clonidine after TIA/CVA work-up. She should be monitored for allergic reaction. DM2. Glucose elevated 165. Continue home medications Fibromyalgia. Chronic. Will address on medications once verified. HLD. Elevates patient's risk of cerebrovascular process. As above, check lipid profile. Medications were not verified by pharmacy at the time of this dictation. Reconciliation to be completed once medications are verified; will address additional chronic medical problems at that time. DVT prophylaxis: SCDs Note dictated using voice recognition software and may contain typographical errors. Problem List/Past Medical History Ongoing Abdominal pain Anxiety Asthma CKD (chronic kidney disease), stage III Claustrophobia Cough Depression, major, recurrent, moderate Diabetes mellitus, type II (Raghunathan) Environmental allergies Essential hypertension Fibromyalgia Gastrointestinal distress Glasses High triglycerides Hirsutism Hypercholesterolemia Metabolic syndrome Morbid obesity Nausea & vomiting PCOS (polycystic ovarian syndrome) Personality disorder Sleep apnea Spasm Vitamin D deficiency Historical Diverticulitis Fall Migraine Myocardial infarction Suicidal behavior Procedure/Surgical History Bowel: 2015 Fall: 02/25/16 History of vaginal hysterectomy: 05/2012 Stress testing using pharmacologic-induced stress Medications Home Medications (31) Active albuterol 2.5 mg/3 mL (0.083%) inhalation solution 2.5 mg = 3 mL, PRN, Inhalation, q4h albuterol-ipratropium 2.5 mg-0.5 mg/3 mL inhalation solution 3 mL, Inhalation, q4h atorvastatin 10 mg oral tablet 10 mg = 1 tab(s), Oral, qDay Bentyl use dicyclomine 10 mg, Oral, TID biotin 10 mg oral tablet 10 mg = 1 tab(s), Oral, qDay buPROPion 150 mg/24 hours (XL) oral tablet, extended release See Instructions cholecalciferol 1250 mcg (50,000 intl units) oral capsule See Instructions cloNIDine 0.3 mg oral tablet 0.3 mg = 1 tab(s), Oral, BID Daily Marguerite oral tablet 1 tab(s), Oral, Daily Diflucan 150 mg oral tablet See Instructions DME MISCellaneous See Instructions DME MISCellaneous See Instructions famotidine 20 mg oral tablet 20 mg = 1 tab(s), Oral, qDay furosemide 20 mg oral tablet See Instructions hydrOXYzine pamoate 25 mg oral capsule 1 cap(s), PRN, Oral, TID hyoscyamine 0.125 mg sublingual tablet 0.125 mg = 1 tab(s), Sublingual, q4h Lancets See Instructions Levsin 0.125 mg oral tablet 0.125 mg = 1 tab(s), Oral, QID MetFORMIN (Eqv-Glucophage XR) 500 mg oral tablet, EXTENDED RELEASE 1,500 mg = 3 tab(s), Oral, qDay NovoLOG Mix 70/30 FlexPen 3 mL Pen See Instructions omeprazole 40 mg oral delayed release capsule 40 mg = 1 cap(s), Oral, BID Pen needles 5 mm See Instructions ProAir HFA MDI (90 mcg/inh) inhalation aerosol 2 puff(s), PRN, Inhalation, q4h propranolol 40 mg oral tablet 40 mg = 1 tab(s), Oral, qDay QUEtiapine 50 mg oral tablet 50 mg = 1 tab(s), Oral, qDay spironolactone 25 mg oral tablet 25 mg = 1 tab(s), Oral, qDayM traZODone 100 mg oral tablet 100 mg = 1 tab(s), Oral, qHS Trulicity Pen 1.5 mg/0.5 mL subcutaneous solution 1.5 mg = 0.5 mL, Subcutaneous, qWeek Xopenex 0.63 mg/3 mL inhalation solution 0.63 mg = 3 mL, PRN, Inhalation, TID Zofran 8 mg oral tablet 8 mg = 1 tab(s), Oral, TID Zofran 8 mg oral tablet 8 mg = 1 tab(s), Oral, TID Allergies Imitrex (Hypotension) amLODIPine (lip swelling) Actos (blurred vision) Compazine (Anxiety) Maxalt (Hypotension) Norflex (Anxiety) Reglan lisinopril (angioedema) magnesium sulfate (uncertain) Social History Smoking Status - 08/28/2018 Never smoker Alcohol - Denies Alcohol Use, 06/25/2017 Frequency: 1-2 times per year., 09/22/2019 Sexual Sexually active: Yes. First active at age: 17 Years. Self described orientation: Straight or heterosexual. History of sexual abuse: No. Gender Identity: Identifies as female., 09/24/2019 Substance Abuse - Denies Substance Abuse, 06/25/2017 Tobacco Tobacco Use: Never (less than 100 in lifetime)., 12/23/2018 Family History Asthma: Sister and Son. Cancer: Father. Diabetes mellitus: Daughter. Fibromyalgia: Mother and Sister. HTN - Hypertension: Brother. Heart attack: Father. Meniere's disease 11-AUG-2014 16:50:41<$>: Brother. Immunizations SARS-CoV-2 mRNA (tozinameran) vaccine: 0 unknown unit (10/25/22) SARS-CoV-2 mRNA (tozinameran) vaccine: 0.3 unknown unit (02/25/21) SARS-CoV-2 mRNA (tozinameran) vaccine: 0.3 unknown unit (01/28/21) tetanus-diphtheria toxoids: 0 unknown unit (10/01/13) Code Status Code Status - Ordered -- 01/17/23 2:06:00 EST, Full Code, Constant Order Digitally Signed by JONI MACK MD on 01/17/2023 02:22 AM [id number] Note ORIGINAL EXAMINATION: CTA OF THE NECK 01/17/2023 2:41 am TECHNIQUE: CTA of the neck was performed with the administration of intravenous contrast. Multiplanar reformatted images are provided for review. MIP images are provided for review. Stenosis of the internal carotid arteries measured using NASCET criteria. Automated exposure control, iterative reconstruction, and/or weight based adjustment of the mA/kV was utilized to reduce the radiation dose to as low as reasonably achievable. COMPARISON: 07/17/2020. HISTORY: ORDERING SYSTEM PROVIDED HISTORY: Reason for Exam: HEADACHE, DIZZINESS, HEADRUSHES X A FEWWKS, LT ARM NUMBNESS, NKI, NO NEURO HX L sided weakness FINDINGS: AORTIC ARCH/ARCH VESSELS: No dissection or arterial injury. No significant stenosis of the brachiocephalic or subclavian arteries. CAROTID ARTERIES: No dissection, arterial injury, or hemodynamically significant stenosis by NASCET criteria. VERTEBRAL ARTERIES: Right dominant. No dissection, arterial injury, or significant stenosis. SOFT TISSUES: The lung apices are clear. No cervical or superior mediastinal lymphadenopathy. The larynx and pharynx are unremarkable. No acute abnormality of the salivary and thyroid glands. BONES: Straightening of the cervical lordosis. No acute osseous abnormality. IMPRESSION: No hemodynamically significant ICA stenosis. Patent vertebral arteries. I have personally reviewed the images of this examination and agree with the resident's findings and interpretation. Interpreted by: Pelon Haynes MD Preliminary Report By: Johnnie Sepulveda Electronically signed By Pelon Haynes MD Dictated Date: 01/17/2023 2:50:04 AM Prelim Date: 01/17/2023 2:54:43 AM Sign Date: 01/17/2023 3:20:39 AM Ordering Provider: [facility]ON[facility]ACK [id number] Note ORIGINAL EXAMINATION: CTA OF THE HEAD WITH CONTRAST 01/17/2023 2:41 am: TECHNIQUE: CTA of the head/brain was performed with the administration of intravenous contrast. Multiplanar reformatted images are provided for review. MIP images are provided for review. Automated exposure control, iterative reconstruction, and/or weight based adjustment of the mA/kV was utilized to reduce the radiation dose to as low as reasonably achievable. COMPARISON: Same day CT head, CTA head 07/17/2020. HISTORY: ORDERING SYSTEM PROVIDED HISTORY: Reason for Exam: HEADACHE, DIZZINESS, HEADRUSHES X A FEWWKS, LT ARM NUMBNESS, NKI, NO NEURO HX L sided weakness FINDINGS: Venous contamination limits some evaluation. ANTERIOR CIRCULATION: No significant stenosis of the intracranial internal carotid, anterior cerebral, or middle cerebral arteries. No aneurysm. An A-comm is present. POSTERIOR CIRCULATION: Right dominant vertebral artery. No significant stenosis of the vertebral, basilar, or posterior cerebral arteries. No aneurysm. OTHER: No dural venous sinus thrombosis on this non-dedicated study. Moderate ethmoidal and maxillary mucosal thickening. BRAIN: No mass effect or midline shift. No extra-axial fluid collection. The carreno-white differentiation is maintained. IMPRESSION: No large vessel occlusion or hemodynamically significant stenosis. I have personally reviewed the images of this examination and agree with the resident's findings and interpretation. Interpreted by: Pelon Haynes MD Preliminary Report By: Johnnie Sepulveda Electronically signed By Pelon Haynes MD Dictated Date: 01/17/2023 2:43:28 AM Prelim Date: 01/17/2023 2:49:39 AM Sign Date: 01/17/2023 3:18:52 AM Ordering Provider: JONI MACK [id number] Note ORIGINAL EXAMINATION: CTA OF THE NECK 01/17/2023 2:41 am TECHNIQUE: CTA of the neck was performed with the administration of intravenous contrast. Multiplanar reformatted images are provided for review. MIP images are provided for review. Stenosis of the internal carotid arteries measured using NASCET criteria. Automated exposure control, iterative reconstruction, and/or weight based adjustment of the mA/kV was utilized to reduce the radiation dose to as low as reasonably achievable. COMPARISON: 07/17/2020. HISTORY: ORDERING SYSTEM PROVIDED HISTORY: Reason for Exam: HEADACHE, DIZZINESS, HEADRUSHES X A FEWWKS, LT ARM NUMBNESS, NKI, NO NEURO HX L sided weakness FINDINGS: AORTIC ARCH/ARCH VESSELS: No dissection or arterial injury. No significant stenosis of the brachiocephalic or subclavian arteries. CAROTID ARTERIES: No dissection, arterial injury, or hemodynamically significant stenosis by NASCET criteria. VERTEBRAL ARTERIES: Right dominant. No dissection, arterial injury, or significant stenosis. SOFT TISSUES: The lung apices are clear. No cervical or superior mediastinal lymphadenopathy. The larynx and pharynx are unremarkable. No acute abnormality of the salivary and thyroid glands. BONES: Straightening of the cervical lordosis. No acute osseous abnormality. IMPRESSION: No hemodynamically significant ICA stenosis. Patent vertebral arteries. I have personally reviewed the images of this examination and agree with the resident's findings and interpretation. Interpreted by: Pelon Haynes MD Preliminary Report By: Johnnie Sepulveda Electronically signed By Pelon Haynes MD Dictated Date: 01/17/2023 2:50:04 AM Prelim Date: 01/17/2023 2:54:43 AM Sign Date: 01/17/2023 3:20:39 AM Ordering Provider: [facility]03-01-2023 Note ORIGINAL EXAMINATION: CTA OF THE HEAD WITH CONTRAST 01/17/2023 2:41 am: TECHNIQUE: CTA of the head/brain was performed with the administration of intravenous contrast. Multiplanar reformatted images are provided for review. MIP images are provided for review. Automated exposure control, iterative reconstruction, and/or weight based adjustment of the mA/kV was utilized to reduce the radiation dose to as low as reasonably achievable. COMPARISON: Same day CT head, CTA head 07/17/2020. HISTORY: ORDERING SYSTEM PROVIDED HISTORY: Reason for Exam: HEADACHE, DIZZINESS, HEADRUSHES X A FEWWKS, LT ARM NUMBNESS, NKI, NO NEURO HX L sided weakness FINDINGS: Venous contamination limits some evaluation. ANTERIOR CIRCULATION: No significant stenosis of the intracranial internal carotid, anterior cerebral, or middle cerebral arteries. No aneurysm. An A-comm is present. POSTERIOR CIRCULATION: Right dominant vertebral artery. No significant stenosis of the vertebral, basilar, or posterior cerebral arteries. No aneurysm. OTHER: No dural venous sinus thrombosis on this non-dedicated study. Moderate ethmoidal and maxillary mucosal thickening. BRAIN: No mass effect or midline shift. No extra-axial fluid collection. The carreno-white differentiation is maintained. IMPRESSION: No large vessel occlusion or hemodynamically significant stenosis. I have personally reviewed the images of this examination and agree with the resident's findings and interpretation. Interpreted by: Pelon Haynes MD Preliminary Report By: Johnnie Sepulveda Electronically signed By Pelon Haynes MD Dictated Date: 01/17/2023 2:43:28 AM Prelim Date: 01/17/2023 2:49:39 AM Sign Date: 01/17/2023 3:18:52 AM Ordering Provider: [facility]03-01-2023 History and physical note Date of Service 01/17/23 Chief Complaint Pt monitors her blood pressure regularly at home. 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 History obtained by patient, ED physician, chart review. She statesthat since having the flu 2 weeks ago she has been having a variety of symptoms including flushing in her head, whooshing sounds in her ears, weakness which is generalized, decreased energy, inability to take several steps without shortness of breath, intermittent blurry vision, and associated panic symptoms. Symptoms have been lasting for variety of time and typically the flushing spells go awayafter seconds. Checks blood pressure regularly and had attending physician check at her work and was found to have BP 208/107. She checks regularly at home and has found it to be consistently high. She is on clonidine outpatient and states that she gets lip swelling, wheezing, edema in the lower extremities with amlodipine, lisinopril, and also probably beta-blockers. At approximately 4 PM, the patient states she had strength discrepancy between the left upper and lower extremity with weakness compared to the right. In the emergency department she has elevated BP 166/117. Saturations adequate on room air. Afebrile. Not tachycardic. Respirations up to 24. CBC with no leukocytosis, anemia, abnormal platelet count. BMP with glucose 165. CT head shows no acute intracranial abnormality. CXR with no acute findings. She was given 500 cc NS, 4 mg Zofran, one 1 g Tylenol. Review of Systems Pertinent review of systems are included in the HPI. All other systems were reviewed and are negative for acute changes from the patient's baseline. Physical Exam Vitals and Measurements T: 36.1 C (Temporal Artery) HR: 86(Monitored) RR: 16 BP: 142/94 SpO2: 95% WT: 130.8 kg Weight Dosing Weight: 130.8 kg (01/16/23) GA: AAOx3, NAD : No CVAT or suprapubic tenderness Abd: Soft nontender nondistended BS+. Obese body habitus. HEENT: oral mucosa moist. NCAT Pulmonary: lungs CTA bilaterally, no respiratory distress MSK: no gross deformities Cardiovascular: RRR, no MRG Skin: warm and dry Neuro: Patient reports sensation discrepancy with left upper and lower extremity with decreased sensation relative to the right. She also has a strength discrepancy 3-4+ on the left and 4+ on the right. Cranial nerves II through XII are intact. Lab Results 01/16 19:44 WBC: 8.1 10^3/mcL (01/16/23 19:44:00) RBC: 4.88 10^6/mcL (01/16/23 19:44:00) Hgb: 14.7 G/dL (01/16/23 19:44:00) Hct: 43.3 % (01/16/23:44:00) MCV: 88.6 fL (01/16/23 19:44:00) MCH: 30 pg (01/16/23 19:44:00) MCHC: 33.9 G/dL (01/16/23 19:44:00) RDW: 13.9 % (01/16/23 19:44:00) Platelet: 227 10^3/mcL (01/16/23:44:00) MPV: 8.1 fL (01/16/23:44:00) Monocyte Distribution Width: 16.83 (01/16/23 19:44:00) Neutrophil %: 56.4 % (01/16/23 19:44:00) Lymphocyte %: 27.1 % (01/16/23 19:44:00) Monocyte %: 6.4 % (01/16/23:44:00) Eosinophil %: 9.2 % High (01/16/23 19:44:00) Basophil %: 0.9 % (01/16/23 19:44:00) Neutrophil, Absolute: 4.5 10^3/mcL (01/16/23 19:44:00) Lymphocyte, Absolute: 2.2 10^3/mcL (01/16/23 19:44:00) Monocyte, Absolute: 0.5 10^3/mcL (01/16/23:44:00) Eosinophil, Absolute: 0.7 10^3/mcL (01/16/23:44:00) Basophil, Absolute: 0.1 10^3/mcL (01/16/23 19:44:00) Glucose Level: 165 mg/dL High (01/16/23:44:00) Sodium Level: 138 mEq/L (01/16/23:44:00) Potassium Level: 3.7 mEq/L (01/16/23:44:00) Chloride: 104 mEq/L (01/16/23:44:00) CO2: 29 mEq/L (01/16/23:44:00) Electrolyte Balance: 5 mEq/L (01/16/23:44:00) BUN: 11 mg/dL (01/16/23:44:00) Creatinine Lvl (s): 1.07 mg/dL (01/16/23:44:00) BUN/Creatinine Ratio: 10.3 ratio (01/16/23:44:00) Calcium Lvl: 9.8 mg/dL (01/16/23:44:00) Total Protein: 6.6 G/dL (12/27/22 08:51:00) Albumin Level: 3.6 G/dL (12/27/22 08:51:00) Globulin: 3 G/dL (12/27/22 08:51:00) A/G Ratio: 1.2 ratio (12/27/22 08:51:00) Bili Total: 0.7 mg/dL (12/27/22 08:51:00) Alk Phos: 107 U/L (12/27/22 08:51:00) AST/SGOT: 16 U/L (12/27/22 08:51:00) ALT/SGPT: 23 U/L (12/27/22 08:51:00) GFR Non-: 55 ml/min/1.73sqm (01/16/23 19:44:00) GFR : >60 (01/16/23 19:44:00) Troponin I High Sensitivity: 2.5 ng/L (01/16/23 19:44:00) TSH: 2.179 mIU/mL (12/27/22 08:51:00) Free T4: 1.08 ng/dL (12/27/22 08:51:00) SARS-CoV-2 PCR: Cepheid Neg (01/16/23 19:44:00) FLU A PCR: Cepheid Neg (01/16/23 19:44:00) FLU B PCR: Cepheid Neg (01/16/23 19:44:00) RSV PCR: Cepheid Neg (01/16/23 19:44:00) Lab Performed By: Devora Laws ([employer] Teacher) (12/27/22 10:22:00) Lab Performing Location: [facility] [id number] [place] [address] (12/27/22 10:22:00) POC Test Comments: called to [facility] (12/27/22 10:22:00) Influenza A (AMB POC): Negative (12/27/22 10:22:00) Influenza B (AMB POC): Positive (Abnormal) (12/27/22 10:22:00) Imaging Results and Diagnostics CT Head or Brain w/o Contrast Result Date: January 17, 2023 Verified By: PELON HAYNES MD CLINICAL STATEMENT: IMPRESSION: No acute intracranial abnormality. XR Chest 1 View Result Date: January 16, 2023 Verified By: UMAIR LUONG MD CLINICAL STATEMENT: IMPRESSION: No acute abnormality is identified. Assessment/Plan Left-sided weakness. Patient reports onset of left-sided weakness occurring today at 4 PM. Strengthdiscrepancy with left lower extremity and upper extremity weaker than the right. Has a history of TIA and multiple presentations in the past for a variety of complaints. However, this weakness is newaccording to the patient. Concern for cerebrovascular process, complex migraine, or anxiety. Fatherhad history of brain tumor. -MRI brain -Given the disabling nature of apparent symptoms and onset 4 PM, CTA head and neck will be ordered in the ED. If no LVO or clinically significant stenosis, the patient is appropriate for admission toour facility on stepdown. -Echo with bubble -Lipid profile Labile blood pressures. Patient with self-reported numbers in healthcare setting checked by attending physician at 208/107. 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 Allergic to amlodipine, lisinopril with lip swelling and wheezing. Possibly also beta-blockers. With these episodes she is symptomatic with head rushing, weakness, visual changes. Continue home clonidine Recommend considering transition to thiazide to avoid rebound hypertension with clonidine after TIA/CVA work-up. She should be monitored for allergic reaction. DM2. Glucose elevated 165. Continue home medications Fibromyalgia. Chronic. Will address on medications once verified. HLD. Elevates patient's risk of cerebrovascular process. As above, check lipid profile. Medications were not verified by pharmacy at the time of this dictation. Reconciliation to be completed once medications are verified; will address additional chronic medical problems at that time. DVT prophylaxis: SCDs Note dictated using voice recognition software and may contain typographical errors. Problem List/Past Medical History Ongoing Abdominal pain Anxiety Asthma CKD (chronic kidney disease), stage III Claustrophobia Cough Depression, major, recurrent, moderate Diabetes mellitus, type II (Raghunathan) Environmental allergies Essential hypertension Fibromyalgia Gastrointestinal distress Glasses High triglycerides Hirsutism Hypercholesterolemia Metabolic syndrome Morbid obesity Nausea & vomiting PCOS (polycystic ovarian syndrome) Personality disorder Sleep apnea Spasm Vitamin D deficiency Historical Diverticulitis Fall Migraine Myocardial infarction Suicidal behavior Procedure/Surgical History Bowel: 2016 Fall: 02/25/16 History of vaginal hysterectomy: 05/2012 Stress testing using pharmacologic-induced stress Medications Home Medications (31) Active albuterol 2.5 mg/3 mL (0.083%) inhalation solution 2.5 mg = 3 mL, PRN, Inhalation, q4h albuterol-ipratropium 2.5 mg-0.5 mg/3 mL inhalation solution 3 mL, Inhalation, q4h atorvastatin 10 mg oral tablet 10 mg = 1 tab(s), Oral, qDay Bentyl use dicyclomine 10 mg, Oral, TID biotin 10 mg oral tablet 10 mg = 1 tab(s), Oral, qDay buPROPion 150 mg/24 hours (XL) oral tablet, extended release See Instructions cholecalciferol 1250 mcg (50,000 intl units) oral capsule See Instructions cloNIDine 0.3 mg oral tablet 0.3 mg = 1 tab(s), Oral, BID Daily Marguerite oral tablet 1 tab(s), Oral, Daily Diflucan 150 mg oral tablet See Instructions DME MISCellaneous See Instructions DME MISCellaneous See Instructions famotidine 20 mg oral tablet 20 mg = 1 tab(s), Oral, qDay furosemide 20 mg oral tablet See Instructions hydrOXYzine pamoate 25 mg oral capsule 1 cap(s), PRN, Oral, TID hyoscyamine 0.125 mg sublingual tablet 0.125 mg = 1 tab(s), Sublingual, q4h Lancets See Instructions Levsin 0.125 mg oral tablet 0.125 mg = 1 tab(s), Oral, QID MetFORMIN (Eqv-Glucophage XR) 500 mg oral tablet, EXTENDED RELEASE 1,500 mg = 3 tab(s), Oral, qDay NovoLOG Mix 70/30 FlexPen 3 mL Pen See Instructions omeprazole 40 mg oral delayed release capsule 40 mg = 1 cap(s), Oral, BID Pen needles 5 mm See Instructions ProAir HFA MDI (90 mcg/inh) inhalation aerosol 2 puff(s), PRN, Inhalation, q4h propranolol 40 mg oral tablet 40 mg = 1 tab(s), Oral, qDay QUEtiapine 50 mg oral tablet 50 mg = 1 tab(s), Oral, qDay spironolactone 25 mg oral tablet 25 mg = 1 tab(s), Oral, qDayM traZODone 100 mg oral tablet 100 mg = 1 tab(s), Oral, qHS Trulicity Pen 1.5 mg/0.5 mL subcutaneous solution 1.5 mg = 0.5 mL, Subcutaneous, qWeek Xopenex 0.63 mg/3 mL inhalation solution 0.63 mg = 3 mL, PRN, Inhalation, TID Zofran 8 mg oral tablet 8 mg = 1 tab(s), Oral, TID Zofran 8 mg oral tablet 8 mg = 1 tab(s), Oral, TID Allergies Imitrex (Hypotension) amLODIPine (lip swelling) Actos (blurred vision) Compazine (Anxiety) Maxalt (Hypotension) Norflex (Anxiety) Reglan lisinopril (angioedema) magnesium sulfate (uncertain) Social History Smoking Status - 08/28/2018 Never smoker Alcohol - Denies Alcohol Use, 06/25/2017 Frequency: 1-2 times per year., 09/22/2019 Sexual Sexually active: Yes. First active at age: 17 Years. Self described orientation: Straight or heterosexual. History of sexual abuse: No. Gender Identity: Identifies as female., 09/24/2019 Substance Abuse - Denies Substance Abuse, 06/25/2017 Tobacco Tobacco Use: Never (less than 100 in lifetime)., 12/23/2018 Family History Asthma: Sister and Son. Cancer: Father. Diabetes mellitus: Daughter. Fibromyalgia: Mother and Sister. HTN - Hypertension: Brother. Heart attack: Father. Meniere's disease 11-AUG-2014 16:50:41<$>: Brother. Immunizations SARS-CoV-2 mRNA (tozinameran) vaccine: 0 unknown unit (09/12/22) SARS-CoV-2 mRNA (tozinameran) vaccine: 0.3 unknown unit (02/25/21) SARS-CoV-2 mRNA (tozinameran) vaccine: 0.3 unknown unit (01/28/21) tetanus-diphtheria toxoids: 0 unknown unit (10/01/13) Code Status Code Status - Ordered -- 01/17/23 2:06:00 EST, Full Code, Constant Order Digitally Signed by JONI MACK MD on 01/17/2023 02:22 AM [id number] Note ORIGINAL EXAMINATION: CT OF THE HEAD WITHOUT CONTRAST 01/17/2023 12:06 am TECHNIQUE: CT of the head was performed without the administration of intravenous contrast. Automated exposure control, iterative reconstruction, and/or weight based adjustment of the mA/kV was utilized to reduce the radiation dose to as low as reasonably achievable. COMPARISON: None. HISTORY: ORDERING SYSTEM PROVIDED HISTORY: Reason for Exam: Complaint of episodes of headrush that lasts for about a second, ongoing for the past couple of weeks. But has been more frequent in the last couple of days. Also complaining of left arm numbness FINDINGS: BRAIN/VENTRICLES: There is no acute intracranial hemorrhage, mass effect or midline shift. No abnormal extra-axial fluid collection. The carreno-white differentiation is maintained without evidence of an acute infarct. There is no evidence of hydrocephalus. ORBITS: The visualized portion of the orbits demonstrate no acute abnormality. SINUSES: The visualized paranasal sinuses and mastoid air cells demonstrate no acute abnormality. SOFT TISSUES/SKULL: Indeterminate 1.7 cm partially calcified density within the scalp overlying the left frontoparietal region, likely represents a sebaceous cyst, not significantly changed dating back to 2020. IMPRESSION: No acute intracranial abnormality. Interpreted by: Pelon Haynes MD Preliminary Report By: Pelon Haynes MD Electronically signed By Pelon Haynes MD Dictated Date: 01/17/2023 12:10:58 AM Prelim Date: 01/17/2023 12:17:58 AM Sign Date: 01/17/2023 12:17:58 AM Ordering Provider: [facility]03-01-2023 Note ORIGINAL EXAMINATION: CT OF THE HEAD WITHOUT CONTRAST 01/17/2023 12:06 am TECHNIQUE: CT of the head was performed without the administration of intravenous contrast. Automated exposure control, iterative reconstruction, and/or weight based adjustment of the mA/kV was utilized to reduce the radiation dose to as low as reasonably achievable. COMPARISON: None. HISTORY: ORDERING SYSTEM PROVIDED HISTORY: Reason for Exam: Complaint of episodes of headrush that lasts for about a second, ongoing for the past couple of weeks. But has been more frequent in the last couple of days. Also complaining of left arm numbness FINDINGS: BRAIN/VENTRICLES: There is no acute intracranial hemorrhage, mass effect or midline shift. No abnormal extra-axial fluid collection. The carreno-white differentiation is maintained without evidence of an acute infarct. There is no evidence of hydrocephalus. ORBITS: The visualized portion of the orbits demonstrate no acute abnormality. SINUSES: The visualized paranasal sinuses and mastoid air cells demonstrate no acute abnormality. SOFT TISSUES/SKULL: Indeterminate 1.7 cm partially calcified density within the scalp overlying the left frontoparietal region, likely represents a sebaceous cyst, not significantly changed dating back to 2020. IMPRESSION: No acute intracranial abnormality. Interpreted by: Pelon Haynes MD Preliminary Report By: Pelon Haynes MD Electronically signed By Pelon Haynes MD Dictated Date: 01/17/2023 12:10:58 AM Prelim Date: 01/17/2023 12:17:58 AM Sign Date: 01/17/2023 12:17:58 AM Ordering Provider: [facility]AT[facility]NNHENNA [facility], [id number] Note ORIGINAL EXAMINATION: ONE XRAY VIEW OF THE CHEST 01/16/2023 5:22 pm COMPARISON: Chest radiograph September 22, 2022 HISTORY: ORDERING SYSTEM PROVIDED HISTORY: Reason for Exam: cough, dyspnea FINDINGS: The cardiomediastinal silhouette appears normal. There is no focal consolidation. There is no pulmonary edema. There is no evidence of pleural effusion. There is no evidence of pneumothorax. No fracture is identified. IMPRESSION: No acute abnormality is identified. Interpreted by: Umair Luong Preliminary Report By: Umair Loung Electronically signed By Umair Luong Dictated Date: 01/16/2023 5:50:47 PM Prelim Date: 01/16/2023 5:52:35 PM Sign Date: 01/16/2023 5:52:35 PM Ordering Provider: KATELYNN HECK [id number] Note ORIGINAL EXAMINATION: ONE XRAY VIEW OF THE CHEST 01/16/2023 5:22 pm COMPARISON: Chest radiograph September 22, 2022 HISTORY: ORDERING SYSTEM PROVIDED HISTORY: Reason for Exam: cough, dyspnea FINDINGS: The cardiomediastinal silhouette appears normal. There is no focal consolidation. There is no pulmonary edema. There is no evidence of pleural effusion. There is no evidence of pneumothorax. No fracture is identified. IMPRESSION: No acute abnormality is identified. Interpreted by: Umair Luong Preliminary Report By: Umair Luong Electronically signed By Umair Luong Dictated Date: 01/16/2023 5:50:47 PM Prelim Date: 01/16/2023 5:52:35 PM Sign Date: 01/16/2023 5:52:35 PM Ordering Provider: [facility]NNHEN[facility] [id number] Discharge instructions Patient Education 02/24/2022 12:51:43 Diarrhea, Unknown Cause Diarrhea with Uncertain Cause (Adult) Diarrhea is when stools are loose and watery. This can be caused by: Viral infections Bacterial infections Food poisoning Parasites Irritable bowel syndrome (IBS) Inflammatory bowel diseases such as ulcerative colitis, Crohn's disease, and celiac disease Food intolerance, such as to lactose, the sugar found in milk and milk products Reaction to medicines like antibiotics, laxatives, cancer drugs, and antacids Along with diarrhea, you may also have: Abdominal pain and cramping Nausea and vomiting Loss of bowel control Fever and chills Bloody stools In some cases, antibiotics may help to treat diarrhea. You may have a stool sample test. This is done to see what is causing your diarrhea, and if antibiotics will help treat it. The results of a stool sample test may take up to 2 days. The healthcare provider may not give you antibiotics until he or she has the stool test results. Diarrhea can cause dehydration. This is the loss of too much water and other fluids from the body. When this occurs, body fluid must be replaced. This can be done with oral rehydration solutions. Oral rehydration solutions are available at drugstores and grocery stores without a prescription. Sports drinks are not the best choice if you are very dehydrated. They have too much sugar and not enoughelectrolytes. Home care Follow all instructions given by your healthcare provider. Rest at home for the next 24 hours, or until you feel better. Avoid caffeine, tobacco, and alcohol. These can make diarrhea, cramping, and pain worse. If taking medicines: Wpsa-ulf-lfqogsh nausea and diarrhea medicines are generally OK unless you experience fever or blood stool. Check with your doctor first in those circumstances. You may use acetaminophen or NSAID medicines like ibuprofen or naproxen to reduce pain and fever. Don t use these if you have chronic liver or kidney disease, or ever had a stomach ulcer or gastrointestinal bleeding. Don't use NSAID medicines if you are already taking one for another condition (like arthritis) or are on daily aspirin therapy (such as for heart disease or after a stroke). Talk with your healthcare provider first. If antibiotics were prescribed, be sure you take them until they are finished. Don t stop taking them even when you feel better. Antibiotics must be taken as a full course. To prevent the spread of illness: Remember that washing with soap and water and using alcohol-based cloth coverer is the best way to prevent the spread of infection. Dry your hands with a single use towel (like a paper towel). Clean the toilet after each use. Wash your hands before eating. Wash your hands before and after preparing food. Keep in mind that people with diarrhea or vomitingshould not prepare food for others. Wash your hands after using cutting boards, countertops, and knives that have been in contact with raw foods. Wash and then peel fruits and vegetables. Keep uncooked meats away from cooked and veqhy-fu-gbt foods. Use a food thermometer when cooking. Cook poultry to at least 165 F (74 C). Cook ground meat (beef,veal, pork, rodriguez) to at least 160 F (71 C). Cook fresh beef, veal, rodriguez, and pork to at least 145 F(63 C). Don t eat raw or undercooked eggs (poached or frida side up), poultry, meat, or unpasteurized milk and juices. Food and drinks The main goal while treating vomiting or diarrhea is to prevent dehydration. This is done by takingsmall amounts of liquids often. Keep in mind that liquids are more important than food right now. Drink only small amounts of liquids at a time. Don t force yourself to eat, especially if you are having cramping, vomiting, or diarrhea. Don t eat large amounts at a time, even if you are hungry. If you eat, avoid fatty, greasy, spicy, or fried foods. Don t eat dairy foods or drink milk if you have diarrhea. These can make diarrhea worse. During the first 24 hours you can try: Oral rehydration solutions. Sports drinks may be used if you are not too dehydrated and are otherwise healthy. Soft drinks without caffeine Norah vika Water (plain or flavored) Decaf tea or coffee Clear broth, consomm , or bouillon Gelatin, popsicles, or frozen fruit juice bars The second 24 hours, if you are feeling better, you can add: Hot cereal, plain toast, bread, rolls, or crackers Plain noodles, rice, mashed potatoes, chicken noodle soup, or rice soup Unsweetened canned fruit (no pineapple) Bananas As you recover: Limit fat intake to less than 15 grams per day. Don t eat margarine, butter, oils, mayonnaise, sauces, gravies, fried foods, peanut butter, meat, poultry, or fish. Limit fiber. Don t eat raw or cooked vegetables, fresh fruits except bananas, or bran cereals. Limit caffeine and chocolate. Limit dairy. Don t use spices or seasonings except salt. Go back to your normal diet over time, as you feel better and your symptoms improve. If the symptoms come back, go back to a simple diet or clear liquids. Follow-up care Follow up with your healthcare provider, or as advised. If a stool sample was taken or cultures were done, call the healthcare provider for the results as instructed. Call 911 Call 911 if you have any of these symptoms: Trouble breathing Confusion Extreme drowsiness or trouble walking Loss of consciousness Rapid heart rate Chest pain Stiff neck Seizure When to seek medical advice Call your healthcare provider right away if any of these occur: Abdominal pain that gets worse Constant lower right abdominal pain Continued vomiting and inability to keep liquids down Diarrhea more than 5 times a day Blood in vomit or stool Dark urine or no urine for 8 hours, dry mouth and tongue, tiredness, weakness, or dizziness Drowsiness New rash You don t get better in 2 to 3 days Fever of 100.4 F (38 C) or higher, or as directed by your healthcare provider [id number] [employer]. [address] [place] [address]. All rights reserved. This information is not intended as a substitute for professional medical care. Always follow yourhealthcare professional's instructions. 02/24/2022 12:51:36 Ovarian Cyst Ovarian Cysts The ovaries are two small organs located on each side of a woman s uterus (womb). They are part of the female reproductive system. Ovarian cysts are sacs filled with fluid or tissue that form on or inside the ovaries. Ovarian cysts are common in women, especially during childbearing years. There are different types of cysts. Most are harmless (benign) and go away on their own. They often cause no symptoms. If symptoms do occur, they can include mild pain or pressure in the lower belly (abdomen). Cysts that are large or break (rupture) may cause more severe pain and symptoms. In these cases, you may need hospital care or treatment such as surgery. You may need more extensive treatment if a cyst causes an ovary to twist (called torsion) or if your doctor suspects your cyst is cancerous. Keepin mind that most cysts are not cancerous, however. General care To help relieve pain, your healthcare provider may recommend using kase-usg-vibfibs pain medicine. If needed, your provide may prescribe stronger pain medicine. Depending on the type of cyst you have, your healthcare provider may advise taking control pills. These help shrink cysts in certain cases. They may also help prevent new cysts from forming. Besure to take these medicines as directed if they are prescribed. Your healthcare provider may advise you to watch your symptoms over time to see if they go away or worsen. Regular ultrasound tests may also be advised. These can help check if a cyst goes away or grows in size. Follow-up care Follow up with your healthcare provider, or as advised. When to seek medical advice Call your healthcare provider right away if any of these occur: Pain worsens or fails to get better with home treatment Fever of 100.4 F (38 C) or higher (or other fever amount directed by your healthcare provider) Nausea and vomiting Weakness, dizziness, or fainting Abnormal vaginal bleeding [id number] [employer]. [address] [place] [address]. All rights reserved. This information is not intended as a substitute for professional medical care. Always follow yourhealthcare professional's instructions. 02/24/2022 12:51:29 Abdominal Pain Abdominal Pain Abdominal pain is pain in the stomach or belly area. Everyone has this pain from time to time. In many cases it goes away on its own. But abdominal pain can sometimes be due to a serious problem, such as appendicitis. So it s important to know when to get help. Causes of abdominal pain There are many possible causes of abdominal pain. Common causes in adults include: Constipation, diarrhea, or gas Stomach acid flowing back up into the esophagus (acid reflux or heartburn) Severe acid reflux, called GERD (gastroesophageal reflux disease) A sore in the lining of the stomach or small intestine (peptic ulcer) Inflammation of the gallbladder, liver, or pancreas Gallstones or kidney stones Appendicitis Intestinal blockage An internal organ pushing through a muscle or other tissue (hernia) Urinary tract infections In women, menstrual cramps, fibroids, ovarian cysts, pelvic inflammatory disease, or endometriosis Inflammation or infection of the intestines, including Crohn's disease and ulcerative colitis Irritable bowel syndrome Diagnosing the cause of abdominal pain Your healthcare provider will give you a physical exam help find the cause of your pain. If needed,you will have tests. Belly pain has many possible causes. So it can be hard to find the reason for your pain. Giving details about your pain can help. Tell your provider where and when you feel the pain, and what makes it better or worse. Also let your provider know if you have other symptoms such as: Fever Tiredness Upset stomach (nausea) Vomiting Changes in bathroom habits Blood in the stool or black, tarry stool Weight loss that you can't explain (involuntary weight loss?) Also report any family history of stomach or intestinal problems, or cancers. Tell your provider about all your alcohol use and drug use. Tell your provider about all medicines you use, including herbs, vitamins, and supplements. Treating abdominal pain Some causes of pain need emergency medical treatment right away. These include appendicitis or a bowel blockage. Other problems can be treated with rest, fluids, or medicines. Your healthcare provider can give you specific instructions for treatment or self-care based on what is causing your pain. If you have vomiting or diarrhea, sip water or other clear fluids. When you are ready to eat solid foods again, start with small amounts of lmwy-ur-loxmvo, low- fat foods. These include apple sauce, toast, or crackers. When to get medical care Call 911 or go to the hospital right away if you: Can t pass stool and are vomiting Are vomiting blood or have bloody diarrhea or black, tarry diarrhea Have chest, neck, or shoulder pain Feel like you might pass out Have pain in your shoulder blades with nausea Have sudden, severe belly pain Have new, severe pain unlike any you have felt before Have a belly that is rigid, hard, and hurts to touch Call your healthcare provider if you have: Pain for more than 5 days Bloating for more than 2 days Diarrhea for more than 5 days A fever of 100.4 F (38 C) or higher, or as directed by your healthcare provider Pain that gets worse Weight loss for no reason Continued lack of appetite Blood in your stool How to prevent abdominal pain Here are some tips to help prevent abdominal pain: Eat smaller amounts of food at each meal. Don't eat greasy, fried, or other high-fat foods. Don't eat foods that give you gas. Exercise regularly. Drink plenty of fluids. To help prevent GERD symptoms: Quit smoking. Reduce alcohol and foods that increase stomach acid. Don't use aspirin or mule-mgo-sgiwlvy pain and fever medicines, if possible. This includes nonsteroidal anti-inflammatory drugs (NSAIDs). Lose excess weight. Finish eating at least 2 hours before you go to bed or lie down. Raise the head of your bed. 3011-7442 [employer]. [address] [place] [address], [place] [address]. All rights reserved. This information is not intended as a substitute for professional medical care. Always follow yourhealthcare professional's instructions. Follow Up Care 02/24/2022 05:38:24 With:[facility] Address: When:2-4 days With:JOSÉ MIGUEL AUGUSTE MD Address: When:2-4 days With:KRUPA ARAUJO DO, Internal Medicine, [facility] Physicians, [facility]/ sub group Address: [address] [place] [address]- When:2-4 days [facility] Evaluation + Plan note Future Appointments Appointment Date:02/16/2022 01:30:00 PM Scheduled Provider:ELIANE HENSON MD Location:[facility] Appointment Type:ENDO OV Appointment Date:03/01/2022 10:30:00 AM Scheduled Provider:KRUPA ARAUJO DO Location:[facility] Appointment Type:PC OV Lab Check Diagnostic Tests Pending * Metanephrines, Plasma 02/10/22 * Renin, Plasma 02/10/22 * Adrenocorticotropic Hormone (ACTH) 02/10/22 * Aldosterone 02/10/22 * 11-Deoxycortisol 02/10/22 * 17-Hydroxyprogesterone 02/10/22 Future Scheduled Tests Laboratory* COVID SARS PCR Screen ( Only) 08/08/21 Radiology* NM Gastric Emptying Study 11/16/21 [facility] Evaluation + Plan note Future Appointments Appointment Date:03/02/2022 11:30:00 AM Scheduled Provider:ELIANE HENSON MD Location:[facility] Appointment Type:ENDO OV Appointment Date:03/29/2022 02:30:00 PM Scheduled Provider:KRUPA ARAUJO DO Location:[facility] Appointment Type:PC OV Lab Check Diagnostic Tests Pending * Urine Culture 02/24/22 * Clostridium difficile (PCR) 02/24/22 * Stool Culture 02/24/22 * Shiga Toxins 1 and 2 02/24/22 Future Scheduled Tests Laboratory* COVID SARS PCR Screen ( Only) 08/08/21 Radiology* NM Gastric Emptying Study 11/16/21 [facility] Evaluation note* Diagnosis Suspected COVID-19 virus infection documented in this encounter [facility] N[facility]ative No data available for this section [facility] Hospital Discharge instructions No data available for this section [facility] Progress note No data available for this section [facility] Summary Purpose Family History No Family History Records FoundNo Family History Records FoundNo Family History Records FoundNo Family History Records FoundNo Family History Records Found Advance Directives No Advanced Directives Records FoundNo Advanced Directives Records FoundNo Advanced Directives Records FoundNo Advanced Directives Records FoundNo Advanced Directives Records Found Discharge Instructions * Instructions* Gualberto Titus MD - 04/21/2020 Home and rest today. Continue your current medications. Return if any new problems. Keep the appointment with your doctor tomorrow. documented in this encounter Assessments Diagnosis Elevated blood pressure reading with diagnosis of hypertension General weakness Other malaise and fatigue Additional Source Comments INFORMATION SOURCE (unrecogn ized section and content) DATE CREATED AUTHOR AUTHOR'S ORGANIZ ATION 01/28/2019 [facility] DATE CREATED AUTHOR AUTHOR'S ORGANIZ ATION 05/04/2020 [facility] DATE CREATED AUTHOR AUTHOR'S ORGANIZ ATION 06/20/2022 [facility] DATE CREATED AUTHOR AUTHOR'S ORGANIZ ATION 09/16/2023 [facility] ([place]) Reason for Visit (unrecogniz ed section and content) Care Team (unrecognized sect ion and content) Care Team (unrecognized sect ion and content) Care Team Personnel Name: KRUPA ARAUJO DO Position: P4 Physician - Primary Care Member Role: Primary Care Physician Address: Address: [address] [place], [place] [address] Name: Desiree Hall RN Position: P3 Gas Shovel Operator/Surface Hydrologist Member Role: Gas Shovel Operator Name: Hillary Manjarrez [facility] Position: Quality Review Member Role: Gas Shovel Operator Name: Ena Martinez Position: Quality Review Member Role: Gas Shovel Operator Name: ELIANE HENSON MD Position: P4 Physician - Endocrinology Member Role: Data Processing Mechanic Address: Address: [address] [facility] [address] [place] [address]- Name: SHANDRA ALONSO MD Position: P3 Physician - Surgery Member Role: OBGYN Address: Address: SHANDRA ALONSO MD [address] [place] [address]- Name: Serge Marcos Member Role: Housekeeper And Laundry Assistant Name: NICHELLE ALMAGUER MD Position: P4 Physician - Psychiatrist Member Role: Psychiatrist Address: Address: [facility] [place] [id number]- Name: Cinthya Beebe RN Position: ED RN Member Role: ED RN Name: JOCELYN ROWE MD Position: ED Physician Member Role: ED Physician Address: Address: [address] [place] [address]- Name: KATELYNN HECK-C Position: ED Physician Dental Ceramist Member Role: ED PA Address: Address: [facility] [address] [place] [address].[address], [place] [address] Name: RAUDEL Tapia Position: P3 acid dumper Member Role: Settlement Clerk Name: KATELYNN FRIED MD Position: Resident Member Role: Resident Address: Address: [facility] [address] [place] [address] Resident [place], [place] [address] Care Team Related Persons Name: KADE HUYNH Name: MARIO GONZALEZ Address: Home [address] [place], [place] [id number] [place] Address: Temporary [address] [place], [place] [id number] Name: ASHVIN FRANKLIN Address: Home [address] [place], [place] [id number] [place] Name: ASHVIN FRANKLIN Address: Home [address] [place], [place] [id number] [place] Name: PEPITO FRANKLIN Address: Home [address] [place], [place] [id number] FOR RECORDS PERTAINING TO PATIENTS WHO ARE OR HAVE BEEN ENROLLED IN A CHEMICAL DEPENDENCY/SUBSTANCEABUSE PROGRAM, SOME INFORMATION MAY BE OMITTED. This clinical summary was aggregated from multiple sources. Caution should be exercised in using it in the provision of clinical care. This summary normalizes information from multiple sources, and as a consequence, information in this document may materially change the coding, format and clinical context of patient data. In addition, data may be omitted in some cases. CLINICAL DECISIONS SHOULD BE BASED ON THE PRIMARY CLINICAL RECORDS. [facility]. provides no warranty or guarantee of the accuracy or completeness of information in this document.
== END 2024-01-25 08:10 | disposition home or self-care (01) ==
LOC: EN 07:24 → AC 07:24
PROVIDERS: PCP Student in an Organized Health Care Education/Training Program; Referring Provider Student in an Organized Health Care Education/Training Program; Visit Provider Internal Medicine Gastroenterology
PROC: 0DJD8ZZ Inspection of Lower Intestinal Tract, Via Natural or Artificial Opening Endoscopic (ICD-10-PCS; CPT 45378; principal; 2024-01-25 06:25)
DX: Z12.11 Encounter for screening for malignant neoplasm of colon (principal); E11.22 Type 2 diabetes mellitus with diabetic chronic kidney disease; N18.30 Chronic kidney disease, stage 3 unspecified; K62.1 Rectal polyp; K31.89 Other diseases of stomach and duodenum; K63.89 Other specified diseases of intestine; I12.9 Hypertensive chronic kidney disease with stage 1 through stage 4 chronic kidney disease, or unspecified chronic kidney disease; J45.909 Unspecified asthma, uncomplicated; F41.9 Anxiety disorder, unspecified; F32.A Depression, unspecified; G47.30 Sleep apnea, unspecified; K29.50 Unspecified chronic gastritis without bleeding; K21.9 Gastro-esophageal reflux disease without esophagitis; E78.00 Pure hypercholesterolemia, unspecified; I25.2 Old myocardial infarction; Z79.84 Long term (current) use of oral hypoglycemic drugs; Z79.899 Other long term (current) drug therapy; Z79.51 Long term (current) use of inhaled steroids
CPT/HCPCS: 43239; 45385; 45380; 88305; 88342; J7120

== ENCOUNTER → 2024-02-08 | Outpatient (CLI) | payer OTHER, SELFPAY ==
--- NOTE | 2024-02-08 09:08 | US_ITS ---
STUDY: ABDOMINAL ULTRASOUND - RIGHT UPPER QUADRANT; ELASTOGRAPHY REASON FOR VISIT: Female, 48 years old. Fatty infiltration of the liver. TECHNIQUE: Ultrasound evaluation of the right upper quadrant was performed with real-time and static carreno-scale imaging. Point quantification shear wave elastography was performed ([employer]). TECHNICAL QUALITY: Adequate. COMPARISON: None. FINDINGS: Liver: The liver is enlarged and measures 19 cm. There is increased echogenicity consistent with fatty infiltration. The bile ducts are within normal limits. There is hepatic color flow. The direction of portal flow is hepatopetal. There is no demonstrated mass lesion. Median liver stiffness measured 7 kPa. Gallbladder: Normal distended gallbladder. The gallbladder wall measures 1.8 mm. There is a negative sonographic Parisi''s sign. There is no pericholecystic fluid. There are no gallstones. Common Bile Duct (C.B.D.): The common bile duct measures 5.4 mm. Pancreas: There is normal echogenicity of the visualized pancreas. There is no demonstrated pancreatic mass or cyst. Right Kidney: Normal size of the right kidney. The right kidney measures 13.1 cm x 4.9 cm x 4.4 cm. Normal renal cortex. The right cortex measures 1.2 cm. There is no demonstrated renal mass or cyst. There is no right hydronephrosis. US/ABD Limited w/ Elastography IMPRESSION: 1. Liver stiffness measures 7 kPa compatible with F2-F3 (Mild to moderate liver fibrosis) Metavir score. Electronically Signed: Julian Wadsworth MD at 13:55 EDT ,
== END | disposition home or self-care (01) ==
LOC: US 09:06
PROVIDERS: PCP Student in an Organized Health Care Education/Training Program; Referring Provider Internal Medicine Gastroenterology; Visit Provider Internal Medicine Gastroenterology
DX: K76.0 Fatty (change of) liver, not elsewhere classified (principal); R10.11 Right upper quadrant pain
CPT/HCPCS: 76705; 76981

== ENCOUNTER → 2024-02-14 | Outpatient (CLI) | payer OTHER, SELFPAY ==
--- NOTE | 2024-02-14 11:49 | NM_ITS ---
CLINICAL: 48-year-old female with history of clinical gastroparesis. SEMI-SOLID PHASE 99m Tc SULFUR COLLOID GASTRIC EMPTYING STUDY COMPARISON: None available FINDINGS: The patient was administered 1.1 mCi of 99m Tc sulfur colloid mixed with oatmeal and consumed per os. Image acquisitions in the anterior-posterior projections were obtained for 60 minutes. There is prompt visualization of the stomach. There is no gastroesophageal reflux identified. The T ? linear fit was calculated to be 37.42 minutes, (Normal: 12-56 minutes). NM/Gastric Emptying Study IMPRESSION: 1. NORMAL 99m Tc sulfur colloid semi-solid phase (oatmeal) gastric emptying imaging examination. A. There is normal and preserved semi-solid phase gastric emptying compared to normal controls. (Hubert et al, J Nucl Med Tech 38: 186, 2010). Electronically Signed: Gualberto Su DO at 23:07 EDT ,
== END | disposition home or self-care (01) ==
LOC: NM 11:43
PROVIDERS: PCP Student in an Organized Health Care Education/Training Program; Referring Provider Internal Medicine Gastroenterology; Visit Provider Internal Medicine Gastroenterology
DX: R10.84 Generalized abdominal pain (principal)
CPT/HCPCS: 78264; A9541

== ENCOUNTER 2024-07-27 06:25 | Outpatient (CLI) | payer OTHER, SELFPAY ==
[2024-01-25 06:20] LABS: Bedside Glucose 156 mg/dL (74-106)
--- NOTE | 2024-01-25 06:42 | PCM.HP.BLA ---
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: No Accompanied by: Self Is patient in pain?: Yes (Low abdomen ) Pain scale (1-10): 4 Allergies amlodipine Allergy (Intermediate, Verified 01/11/24 13:58) Otherlisinopril Allergy (Intermediate, Verified 01/11/24 13:58) Othermetoclopramide [From Reglan] Allergy (Intermediate, Verified 01/11/24 13:58) Otherorphenadrine [From Norflex] Allergy (Intermediate, Verified 01/11/24 13:58) Otherpioglitazone [From Actos] Allergy (Intermediate, Verified 01/11/24 13:58) Otherprochlorperazine [From Compazine] Allergy (Intermediate, Verified 01/11/24 13:58) Otherrizatriptan [From Maxalt] Allergy (Intermediate, Verified 01/11/24 13:58) Othersumatriptan [From Imitrex] Allergy (Intermediate, Verified 01/11/24 13:58) Other Medications albuterol sulfate 1.25 mg/3 mL solution for nebulization 1.25 mg inhalation Q4H 03/15/23 [History Confirmed 01/11/24] albuterol sulfate 90 mcg/actuation aerosol inhaler 2 puff inhalation Q6H PRN 03/15/23 [History Confirmed 01/11/24] aspirin 81 mg tablet,delayed release 81 mg PO DAILY 03/15/23 [History Confirmed 01/11/24] biotin 10 mg tablet 10 mg PO DAILY 03/15/23 [History Confirmed 01/11/24] bupropion HCl 150 mg 24 hr tablet, extended release 150 mg PO QAM 03/15/23 [History Confirmed 01/11/24] cetirizine 10 mg tablet 10 mg PO DAILY PRN 03/15/23 [History Confirmed 01/11/24] cholecalciferol (vitamin D3) 125 mcg (5,000 unit) capsule 125 mcg PO DAILY 03/15/23 [History Confirmed 01/11/24] clonidine HCl 0.3 mg tablet 0.3 mg PO BID 03/15/23 [History Confirmed 01/11/24] famotidine 20 mg tablet 20 mg PO DAILY 03/15/23 [History Confirmed 01/11/24] hyoscyamine sulfate 0.125 mg tablet 0.125 mg PO BID-QID PRN 03/15/23 [History Confirmed 01/11/24] levalbuterol HCl 0.63 mg/3 mL solution for nebulization 0.63 mg inhalation ONCE 03/15/23 [History Confirmed 01/11/24] omega-3 fatty acids-fish oil 360 mg-1,200 mg capsule (Fish Oil) 1 cap PO DAILY 03/15/23 [History Confirmed 01/11/24] omeprazole 40 mg capsule,delayed release 40 mg PO BID 03/15/23 [History Confirmed 01/11/24] propranolol 40 mg tablet 40 mg PO ONCE 03/15/23 [History Confirmed 01/11/24] spironolactone 50 mg tablet 50 mg PO DAILY 03/15/23 [History Confirmed 01/11/24] trazodone 100 mg tablet 100 mg PO DAILY 03/15/23 [History Confirmed 01/11/24] atorvastatin 10 mg tablet 10 mg PO DAILY 01/11/24 [History Confirmed 01/11/24] metformin 500 mg tablet 1,500 mg PO DAILY 01/11/24 [History Confirmed 01/11/24] montelukast 10 mg tablet 10 mg PO DAILY 01/11/24 [History Confirmed 01/11/24] ondansetron HCl 8 mg tablet 8 mg PO Q12H PRN 01/11/24 [History Confirmed 01/11/24] quetiapine 50 mg tablet 50 mg PO QHS 01/11/24 [History Confirmed 01/11/24] tirzepatide 5 mg/0.5 mL subcutaneous pen injector (Jessica) 5 mg subcut QWEEK 01/11/24 [History Confirmed 01/11/24] REPLACED BY [facility] Medical History (Updated 01/13/24 @ 16:[address] Hartley Friend, DO) Abdominal pain Anxiety Asthma CKD (chronic kidney disease), stage III Cough Depression Diverticulitis Environmental allergies Fibromyalgia Hirsutism HTN (hypertension) Hypertriglyceridemia Left-sided weakness Metabolic syndrome Migraine Myocardial infarction PCOS (polycystic ovarian syndrome) Personality disorder Sleep apnea Type 2 diabetes mellitus Vitamin D deficiency Surgical History (Updated 01/11/24 @ 14:02 by Pam Crabtree) H/O vaginal hysterectomy History of bowel resection Family History (Updated 03/15/23 @ 08:26 by Karla Vallejo) Sister Asthma FibromyalgiaSon AsthmaFather Cancer Myocardial infarctionMother FibromyalgiaBrother Hypertension Menieres disease Social History (Updated 01/11/24 @ 14:02 by Pam Crabtree) Smoking Status: Never smoker Electronic Cigarette Use: not used second hand exposure: No alcohol intake: current alcohol intake frequency: holidays/special occasions only substance use type: does not use HPI HPI Details: ILSA FRANKLIN, is a 48 F who presents to the office today for GI Hx abdominal pain, N/V, diverticulitis. PMH personality disorder, claustrophobia, anxiety/depression. PCP OV 3.9.23 as ED f/u and management of DMII, CKD, elevated triglycerides., PCOS, vit D deficiency, metabolic syndrome. Presented to OSH ED for HTN/horrible headache/left sided weakness. Neurology started valproic acid for migraine treatment, suspected hypertensive encephalopathy causing headache or migraine headache causing HTN.; MRI brain, CTA head/neck WNL; ECG with bubble study showed intra-arterial level shunt likely through patent foramen ovale. ROS Const Constitutional: Positive for fatigue and weight change (weight loss) ENT ENT: Positive for difficulty swallowing Gastro GI: Positive for abdominal pain, bloating, change in bowel habits, constipation, diarrhea, heartburn, difficulty swallowing, excessive flatus and nausea/dyspepsia Musc Musculoskeletal: Positive for joint pain, back pain, joint swelling, muscle cramps, muscle weakness and sciatica Skin Skin: Positive for rash Neuro Neurology: Positive for Increased tone in limbs Psych Psychiatric: Positive for anxiety Endo Endocrine: Positive for fatigue and weight change (weight loss) Exam Const General: cooperative and comfortable Nutritional Appearance: average body habitus and well nourished [facility] Head: normal to inspection Ears: hearing grossly normal bilaterally Nose: external nose normal Face and sinus: normal facial exam Mouth: oral mucosae normal Throat: posterior oropharynx normal Eyes General: appearance normal, both eyes and all related structures Neck Neck: normal visual inspection Chest Chest palpation & inspection: normal inspection of the chest and normal palpation of entire chest wall Resp Effort & Inspection: normal respiratory effort Auscultation: Bilateral: Clear to Auscultation Cardio Palpation: normal PMI Rate: regular rate Rhythm: regular rhythm GI Inspection: normal to inspection Auscultation: normal bowel sounds Percussion: normal to percussion Palpation: no hepatosplenomegaly Skin General: no rashes or lesions noted Neuro General: patient alert Extrem General: normal to inspection Psych Affect: normal affect Quality Reporting Tobacco Screening ([facility] 138) Smoking Status: Former smoker Assessment and Plan Assessment and Plan (1) Abdominal pain: Status: Acute Qualifiers: Abdominal location: generalized Qualified Code(s): R10.84 - Generalized abdominal pain Plan: Very pleasant 48-year-old with past medical history of type 2 diabetes, asthma, mild depression, gastroesophageal reflux disease and PCOS who presents with worsening nausea, vomiting, diarrhea. Differential diagnosis includes medication induced gastroparesis, exocrine pancreatic insufficiency, irritable bowel syndrome, inflammatory bowel disease. She will undergo EGD and colonoscopy with biopsies. She may also need imaging depending on what the upper and lower endoscopy look like. She will also get a gastric emptying study and stool studies along with biochemical analysis. She is okay with this plan. Orders: Orders CBC W/Diff, Automated 01/11/24 R10.9 - Unspecified abdominal pain Ferritin 01/11/24 R10.9 - Unspecified abdominal pain YUNIER + Protein Elect, Serum 01/11/24 R10.9 - Unspecified abdominal pain Iron Binding Capacity,Total 01/11/24 R10.9 - Unspecified abdominal pain Celiac Disease Profile 01/11/24 R10.9 - Unspecified abdominal pain Iron 01/11/24 R10.9 - Unspecified abdominal pain Retic Panel Count 01/11/24 R10.9 - Unspecified abdominal pain ANCA 01/11/24 R10.9 - Unspecified abdominal pain CRP 01/11/24 R10.9 - Unspecified abdominal pain Erythrocyte Sed Rate 01/11/24 R10.9 - Unspecified abdominal pain Allergen, Food Profile 14 01/11/24 R10.9 - Unspecified abdominal pain Pancreatic Elastase, Fecal 01/11/24 R10.9 - Unspecified abdominal pain Thyroid Stim Hormone (TSH) 01/11/24 R10.9 - Unspecified abdominal pain IBD Expanded Profile 01/11/24 R10.9 - Unspecified abdominal pain Giardia Lamblia, Stool EIA 01/11/24 R10.9 - Unspecified abdominal pain ENTERIC PATHOGEN PANEL STOOL 01/11/24 K58.9 - Irritable bowel syndrome without diarrhea, R10.9 - Unspecified abdominal pain Immunoglobulins G/A/M/E 01/11/24 R10.9 - Unspecified abdominal pain Ova and Parasites 8623 01/11/24 K58.9 - Irritable bowel syndrome without diarrhea, R10.9 - Unspecified abdominal pain Free T3 01/11/24 R10.9 - Unspecified abdominal pain CDIFF (PCR) 01/11/24 R10.9 - Unspecified abdominal pain IgG Subclasses 01/11/24 R10.9 - Unspecified abdominal pain Triglycerides 01/11/24 R10.9 - Unspecified abdominal pain BLAIR Comprehensive Panel 01/11/24 R10.9 - Unspecified abdominal pain Serotonin, Serum 01/11/24 R10.9 - Unspecified abdominal pain Aldolase 01/11/24 R10.9 - Unspecified abdominal pain CPK Total, Creatine Kinase 01/11/24 R10.9 - Unspecified abdominal pain Aldosterone, Serum 01/11/24 R10.9 - Unspecified abdominal pain ABD Limited w/ Elastography 01/11/24 R10.9 - Unspecified abdominal pain Gastric Emptying Study 01/11/24 R10.9 - Unspecified abdominal pain EGD 01/25/24 R10.9 - Unspecified abdominal pain Colonoscopy 01/25/24 R10.9 - Unspecified abdominal pain I have examined the patient and the H&P has been reviewed. There are no clinical changes since date of exam.
== END 2024-07-27 23:00 | disposition home or self-care (01) ==
LOC: SDC 01-21 21:42
PROVIDERS: PCP Student in an Organized Health Care Education/Training Program; Referring Provider Student in an Organized Health Care Education/Training Program; Visit Provider Internal Medicine Gastroenterology
DX: Z01.818 Encounter for other preprocedural examination (principal)
CPT/HCPCS: 82962; J2405

== ENCOUNTER → 2024-12-30 | Outpatient (CLI) | payer OTHER, SELFPAY ==
[2024-12-30 17:26] LABS: Absolute Lymphocyte Count 2.54 X10^3/uL (0.83-4.51); Absolute Neutrophil Count 4.6 X10^3/uL (2.0-7.7); Basophil# 0.04 X10^3/uL; Basophil% 0.5 % (0-1); Eosinophil# 0.23 X10^3/uL; Eosinophils% 2.9 % (0-5); Hematocrit 40.6 % (37-47); Hemoglobin 13.6 g/dL (12.0-15.0); Lymphocyte # 2.54 X10^3/ul (0.83-4.51); Lymphocyte % 31.9 % (19-41); Mean Corp Hgb Conc 33.5 g/dL (32-36); Mean Corpuscular Hgb 29.1 pg (27.0-32.0); Mean Corpuscular Volume 86.9 fL (81-99); Mean Platelet Vol. 10.6 fl (6.2-12.0); Monocyte# 0.56 X10^3/uL; NRBC Flagged by Analyzer 0 % (0-5); Neutrophil # 4.59 X10^3/uL (2.7-7.7); Neutrophil % 57.6 % (47-70); Platelet Count 231 K/mm3 (150-450); RBC Distribution Width CV 13.1 % (11.6-14.6); RBC Distribution Width SD 40.8 fl (35.1-43.9); Red Blood Count 4.67 M/mm3 (4.2-5.4)
[2024-12-30 18:09] LABS: CRP 4.13 mg/L (0.0-3.0)
[2024-12-30 18:32] LABS: Hepatitis C Antibody Non-Reactive (Nonreactive); Vitamin B12 906 pg/mL (211-911)
[2024-12-31 01:46] LABS: Hepatitis B Surface Antigen Nonreactive (Nonreactive)
[2024-12-31 01:47] LABS: Hepatitis B Surface Antibody Nonreactive
[2025-01-02 14:08] LABS: Anti-Parietal Cell AB, QN 1.4 Units (0.0-20.0); Hepatitis A AB, Total Negative (Negative); Hepatitis B Core Ab Total Negative (Negative)
[2025-01-04 12:07] LABS: Immunoglobulin E 416 IU/mL (6-495)
== END | disposition home or self-care (01) ==
LOC: LAB 16:40
PROVIDERS: Nurse Practitioner Acute Care; PCP Student in an Organized Health Care Education/Training Program; Referring Provider Internal Medicine Gastroenterology; Visit Provider Internal Medicine Gastroenterology
DX: Z91.018 Allergy to other foods (principal); K59.00 Constipation, unspecified; E53.8 Deficiency of other specified B group vitamins; R12 Heartburn
CPT/HCPCS: 36415; 82607; 82746; 82785; 83516; 85025; 86140; 86340; 86704; 86706; 86708; 86803; 87340

== ENCOUNTER → 2025-09-24 | Outpatient (CLI) | payer OTHER, SELFPAY ==
--- NOTE | 2025-09-24 17:24 | RAD_ITS ---
PROCEDURE: RAD/Abdomen Single View
== END | disposition home or self-care (01) ==
LOC: RAD 17:22
PROVIDERS: PCP Student in an Organized Health Care Education/Training Program; Referring Provider Nurse Practitioner Acute Care; Visit Provider Nurse Practitioner Acute Care
DX: K59.00 Constipation, unspecified (principal); R11.2 Nausea with vomiting, unspecified
CPT/HCPCS: 74018

== ENCOUNTER → 2025-09-26 | Outpatient (CLI) | payer OTHER, SELFPAY ==
--- NOTE | 2025-09-26 09:26 | RAD_ITS ---
PROCEDURE: ABDOMEN SINGLE VIEW 09/26/2025 REASON FOR EXAM: SITZ MARKER DAY 5 TECHNIQUE: Procedure Code: RADABD Modality: DX Procedure: ABDOMEN SINGLE VIEW COMPARISON: Prior study dated September 24, 2025. FINDINGS: Bowel gas: Large amount of fecal material is seen throughout the colon. No Siitz markers are seen at this time. Calcifications: No suspicious calcifications. Bones: There are degenerative changes of the spine. Other: RAD/Abdomen Single View IMPRESSION: Large amount of fecal material is seen throughout the colon. No SITZ markers are seen at this time. Reading Location: [id number]
--- OUTSIDE RECORDS SUMMARY | 2025-09-26 09:29 | XMS RPT_ITS | CCD ---
Author Organization [facility] Care Team Providers Care Community Development Manager Name Role Phone Unavailable, Family Physician Attending Un available Krista Ellis Attending Unavailable Unavailable Primary Care Provider Unavailabl e BITONTE DO, KAYCEE Primary Care Physician BassamCorry urena DO Primary Care Provider BITONTE DO, KAYCEE Primary Care Physician Friend, Dr. Hartley Attending Provider [phone] BITONTE, DO KAYCEE Primary Care Provider BITONTE, DO KAYCEE Referring Provider FriendDr. Hartley Other Provider Friend, Dr. Hartley Attending Provider BITONTE, DO KAYCEE Primary Care Provider BITONTE, DO KAYCEE Referring Provider FriendDr. Hartley Other Provider BITONTE DO, KAYCEE Primary Care Unavailable BITONTE DO, KAYCEE Attending Unavailable BITONTE DO, KAYCEE Primary Care Unavailable BITONTE DO, KAYCEE Attending Unavailable BITONTE DO, KAYCEE Primary Care Unavailable BITONTE DO, KAYCEE Attending Unavailable BITONTE DO, KAYCEE Primary Care Unavailable ELIANE HENSON MD Attending Unavaila ble BITONTE DO, KAYCEE Primary Care Unavailable CHRIS OLMSTEAD MD Attending Unavailable BITONTE DO, KAYCEE Primary Care Unavailable BRITTANY LEE Attending Unavailable BITONTE DO, KAYCEE Primary Care Unavailable BITONTE DO, KAYCEE Attending Unavailable BITONTE DO, KAYCEE Primary Care Unavailable BITONTE DO, KAYCEE Attending Unavailable BITONTE DO, KAYCEE Primary Care Unavailable BRITTANY LEE Attending Unavailable BITONTE DO, KAYCEE Primary Care Unavailable BRITTNAY LEE Attending Unavailable TRAN ALBERTO MD Consulting Unavailable ISHAN VANG, CHRIS Woodard Admitting Unavailable ISHAN VANG, CHRIS Woodard Attending Unavailable BITONTE DO, KAYCEE Primary Care Unavailable BRONSON DENNY MD Consulting Unavailable SARA CORLEY MD Attending Unavailable BITONTE DO, KAYCEE Primary Care Unavailable CHOBERTRAM DO, ENOC Attending Unavailable BITONTE DO, KAYCEE Primary Care Unavailable FROMMELT DO, DAVID Attending Unavailable BITONTE DO, KAYCEE Primary Care Unavailable VILMA ZEPEDA Attending Unavailable BITONTE DO, KAYCEE Primary Care Unavailable BITONTE DO, KAYCEE Primary Care Unavailable ELIANE HENSON MD Attending Unavaila ble BITONTE DO, KAYCEE Primary Care Unavailable BRITTANY LEE Attending Unavailable BITONTE DO, KAYCEE Primary Care Unavailable CHRIS OLMSTEAD MD Attending Unavailable BITONTE DO, KAYCEE Primary Care Unavailable BRITTANY LEE Attending Unavailable Bonetti DO, Pushpa Primary Care Provider SHAMAR ROPER Attending Unavailable BONETTI, KELVIN Primary Care Unavailable BITONTE DO, KAYCEE Primary Care Unavailable BRITTANY LEE Attending Unavailable Margo Mayer Unavailable Unavailable Janae , Kaycee H Primary Care Provider ЕКАТЕРИНА UREÑA Attending Unavailable BITONTE, KAYCEE H Primary Care Unavailable BITONTE DO, KAYCEE Primary Care Unavailable EIMLY CANADA MD Attending Unavailable BITONTE DO, KAYCEE Primary Care Unavailable CLARY VANG, DR JEFF Villalpando Consulting Unavailable EMILY CANADA MD Attending Unavailable Kaley Hope Attending Unavailable BITONTE, KAYCEE Referring Unavailable BITONTE, KAYCEE Primary Care Unavailable Friend, Naeem Attending Unavailable Friend, Naeem Referring Unavailable BITONTE, KAYCEE Primary Care Unavailable Kaley Hope Attending Unavailable Kaley Hope Referring Unavailable BITONTE, KAYCEE Primary Care Unavailable Kaley Hope Attending Unavailable BITONTE, KAYCEE Referring Unavailable BITONTE, KAYCEE Primary Care Unavailable SINAI JEAN MD Attending Unavailable CLARY VANG, DR JEFF Villalpando Admitting Unavailable CLARY VANG, DR JEFF Villalpando Consulting Unavailable BITONTE DO, KAYCEE Primary Care Unavailable NALINI DO, NICHELLE Consulting Unavailable JOSE DO, GUSTABO Consulting Unavailable BITONTE DO, KAYCEE Primary Care Unavailable BRITTANY LEE Attending Unavailable BRANDY VANG, ELIANE Attending Unavaila ble BITONTE DO, KAYCEE Primary Care Unavailable BRITTANY LEE Attending Unavailable BITONTE DO, KAYCEE Primary Care Unavailable BITONTE DO, KAYCEE Attending Unavailable MAC VANG, TRENTON Chiang Referring Unavailable BITONTE DO, KAYCEE Primary Care Unavailable BITONTE DO, KAYCEE Attending Unavailable BITONTE DO, KAYCEE Primary Care Unavailable BITONTE DO, KAYCEE Primary Care Unavailable BITONTE DO, KAYCEE Attending Unavailable BITONTE DO, KAYCEE Primary Care Unavailable ISHAN VANG, CHRIS Woodard Attending Unavailable BITONTE DO, KAYCEE Primary Care Unavailable BRITTANY LEE Attending Unavailable BRANDY VANG, ELIANE Attending Unavaila ble BITONTE DO, KAYCEE Primary Care Unavailable BITONTE DO, KAYCEE Primary Care Unavailable BITONTE DO, KAYCEE Attending Unavailable Allergies Allergy Classification Reported Allergen(s) Allergy Type Date of Onset Reaction(s) Facility (20 sources) Lisinopril; Translations: [lisinopril] Drug Allergy 04-21-20 Angioedema [place], [place] (8 sources) Magnesium Sulfate; Translations: [magnesium sulfate] Drug Allergy 04-21-20 uncertain [place], [place] (20 sources) Orphenadrine; Translations: [orphenadrine] Drug Allergy 04-21-20 Anxiety, Other, Other: See Comments [place], [place] (20 sources) Prochlorperazine; Translations: [prochlorperazine] Drug Allergy 04-21-20 Anxiety, Other, Other: See Comments [place], [place] (20 sources) rizatriptan; Translations: [rizatriptan] Drug Allergy 04-21-20 Other [place], [place] (20 sources) SUMAtriptan; Translations: [sumatriptan] Drug Allergy 04-21-20 Other, Other: See Comments [place], [place] (20 sources) amLODIPine; Translations: [amlodipine] Drug Allergy 01-11-20 Other [facility] (20 sources) Metoclopramide; Translations: [metoclopramide] Drug Allergy 01-11-20 Other [facility] (20 sources) pioglitazone; Translations: [pioglitazone] Drug Allergy 01-11-20 Other [facility] (14 sources) Fluconazole; Translations: [fluconazole] Drug Allergy Lip swelling (finding) [facility] (3 sources) Fluconazole Allergy to substance 10-23-20 Other [facility] (3 sources) Lactose (non-medical use) Allergy to substance 10-23-20 Other [facility] (3 sources) Lisinopril Allergy to substance 04-21-20 Angioedema, Other [facility] (6 sources) pork allergenic extract Drug Allergy anaphylaxis [facility] (1 source) amLODIPine Drug Allergy 09-21-20 [facility] (1 source) Lisinopril Drug Allergy 09-21-20 [facility] (1 source) Metoclopramide Drug Allergy 09-21-20 [facility] (1 source) Orphenadrine Drug Allergy 09-21-20 [facility] (1 source) pioglitazone Drug Allergy 09-21-20 [facility] (1 source) Prochlorperazine Drug Allergy 09-21-20 [facility] (1 source) rizatriptan Drug Allergy 09-21-20 [facility] (1 source) SUMAtriptan Drug Allergy 09-21-20 [facility] Medications Current Medications Medication Drug Class(es) Dates Sig (Normalized) Sig (Original) 0.5 ML tirzepatide 10 MG/ML Auto-Injector [Mounjaro] (1 source) Start: 12-25-2023 inject 1 dose by subcutaneous injection every week Mounjaro 5 mg/0.5 mL subcutaneous solution Dose : 5 mg =, Subcutaneous, qWeek, rotate injection sites, # 4 EA, 1 Refill(s), Pharmacy: [facility]/pharmacy #[id number], 172, cm, 12/19/23 9:44:00 EST, Height, kg, 12/19/23 9:44:00 EST, Dosing Weight Start Date: 12/25/23 Status: Ordered 0.5 ML tirzepatide 15 MG/ML Auto-Injector [Mounjaro] (7 sources) Start: 03-17-2024 inject 1 dose by subcutaneous injection every week Mounjaro 7.5 mg/0.5 mL subcutaneous solution Dose : 7.5 mg =, Subcutaneous, qWeek, rotate injection sites, # 4 EA, 3 Refill(s), Pharmacy: [facility]/pharmacy #[id number], 172, cm, 03/13/24 14:05:00 EDT, Height, kg, 03/13/24 14:05:00 EDT, Dosing Weight Start Date: 03/17/24 Status: Ordered 0.5 ML tirzepatide 20 MG/ML Auto-Injector [Mounjaro] (4 sources) Start: 03-06-2025 inject 1 dose by subcutaneous injection every week Mounjaro 10 mg/0.5 mL subcutaneous solution Dose : 10 mg =, Subcutaneous, qWeek, rotate injection sites, # 4 EA, 1 Refill(s), Pharmacy: [facility]/pharmacy #[id number], 175.3, cm, 02/18/25 15:23:00 EDT, Height, kg, 02/18/25 15:23:00 EDT, Dosing Weight Start Date: 03/06/25 Status: Ordered Quantity: 4.0 Unit: EA Repeat number: 2 Start: 12-30-2024 inject 1 dose by sub cutaneous injection every week Mounjaro 10 mg/0.5 mL subcutaneous solution Dose : 10 mg =, Subcutaneous, qWeek, rotate injection sites, # 4 EA, 1 Refill(s), Pharmacy: [facility]/pharmacy #[id number], 172.7, cm, 12/30/24 13:57:00 EST, Height, kg, 12/30/24 13:57:00 EST, Dosing Weight Start Date: 12/30/24 Status: Ordered Quantity: 4.0 Unit: EA Repeat number: 2 0.5 ML tirzepatide 25 MG/ML Auto-Injector [Mounjaro] (3 sources) Start: 08-28-2025 inject 1 dose by subcutaneous injection every week Mounjaro 12.5 mg/0.5 mL subcutaneous solution Dose : 12.5 mg =, Subcutaneous, qWeek, rotate injection sites, # 2 mL, 0 Refill(s), Pharmacy: [facility]/pharmacy #[id number], 172.7, cm, 08/26/25 13:13:00 EDT, Height, kg, 08/26/25 13:13:00 EDT, Dosing Weight Start Date: 08/28/25 Status: Ordered Medication Dispense Status: Completed Quantity: 2.0 Unit: mL Total Allowed Fills: 1 Fills Dispensed: 0 Start: 07-21-2025 inject 1 dose by sub cutaneous injection every week Mounjaro 12.5 mg/0.5 mL subcutaneous solution Dose : 12.5 mg =, Subcutaneous, qWeek, rotate injection sites, # 2 mL, 0 Refill(s), Pharmacy: [facility]/pharmacy #[id number], 172.7, cm, 04/27/25 14:09:00 EDT, Height, kg, 04/27/25 14:09:00 EDT, Dosing Weight Start Date: 07/21/25 Status: Ordered Medication Dispense Status: Completed Quantity: 2.0 Unit: mL Total Allowed Fills: 1 Fills Dispensed: 0 acetaminophen 500 mg oral ta blet (5 sources) Start: 02-08-2025 End: 02-13-2025 acetaminophen 500 mg oral tablet Dose : 1,000 mg = 2 tab(s), Oral, TID, X 5 day(s), # 30 tab(s), 0 Refill(s), 02/13/25 10:48:00 AM EDT, Pharmacy: [facility]/pharmacy #[id number], 172.2, cm, 02/06/25 4:31:00 EDT, Height, kg, 02/06/25 4:31:00 EDT, Dosing Weight Start Date: 02/08/25 Stop Date: 02/13/25 Status: Ordered Quantity: 30.0 Unit: tab(s) Repeat number: 1 Start: 06-18-2024 acetaminophen 650 mg oral tablet, extended release Dose : 1,300 mg = 2 tab(s), Oral, q8h, PRN as needed for pain, # 24 tab(s), 0 Refill(s) Start Date: 06/18/24 Status: Ordered Quantity: 24.0 Unit: tab(s) Repeat number: 1 acetaminophen 325 mg / HYDROcodone bitartrate 5 mg oral tablet (1 source) Opioid Agonist Start: 01-27-2024 End: 01-30-2024 take 1 tablet by mouth every six hours as needed for pain [place] 325- 5 mg oral tablet Dose = 1 tab(s), Oral, q6h, PRN as needed for pain, X 3 day(s), # 12 tab(s), 0 Refill(s), Flank pain Abdominal pain, 122 Start Date: 01/27/24 Stop Date: 01/30/24 Status: Ordered acetaminophen 325 mg / oxyCODONE hydrochloride 5 mg oral tablet (2 sources) Opioid Agonist Start: 05-08-2024 acetaminophen- oxy CODONE 325 mg-5 mg oral tablet PLEASE SEE ATTACHED FOR DETAILED DIRECTIONS, 0 Refill(s) Start Date: 05/08/24 Status: Ordered Start: 04-26-2024 End: 05-03-2024 take 1 tablet by mouth every six hours as needed for pain acetaminophen-oxyCODONE 325 mg-5 mg oral tablet See Instructions, PRN for pain, Take 1 tab every 6 hours as needed for pain scale 4-6. Take 2 tabs every 6 hours as needed for pain scale 7-10. Do not exceed 6 tabs a day. Do not exceed 4000mg acetaminophen a day. No driving and/or operating machinery., # 42 tab(s), 0 Refill(s), Pharmacy: [facility]/pharmacy #[id number], Acute postoperative pain, 172.7, cm, 04/24/24 0:56:00 EDT, Height, 112, kg, 04/24/24 0:56:00 EDT, Dosing Weight Start Date: 04/26/24 Stop Date: 05/03/24 Status: Ordered albuterol 0.83 mg/ml inhalation solution (17 sources) beta2-Adrenergic Agonist Start: 03-06-2024 take 1 dose by inhalation every four hours as needed albuterol 2.5 mg/3 mL (0.083%) inhalation solution Dose : 2.5 mg = 3 mL, Inhalation, q4h, PRN as needed for wheezing, # 540 mL, 3 Refill(s), Pharmacy: [facility]/pharmacy #[id number], Asthma, 172, cm, 12/19/23 9:44:00 EST, Height, kg, 01/27/24 10:27:00 EDT, Dosing Weight Start Date: 03/06/24 Status: Ordered Start: 10-08-2023 take 1 dose by inhal ation every four hours as needed albuterol 2.5 mg/3 mL (0.083%) inhalation solution Dose : 2.5 mg = 3 mL, Inhalation, q4h, PRN as needed for wheezing, # 100 EA, 0 Refill(s), Pharmacy: [facility]/pharmacy #[id number], Asthma, 172, cm, 08/08/23 15:51:00 EDT, Height, kg, 08/23/23 16:42:00 EDT, Dosing Weight Start Date: 10/08/23 Status: Ordered Start: 03-15-2023 take 1.25 mg by inha lation every four hours Albuterol Sulfate Active 1.25 MG INHALATION Q4H March 15, 2023 12:00am Start: 03-15-2023 take 1 puff(s) by in halation every six hours Albuterol Sulfate Active 2 PUFF INHALATION EVERY 6 HOURS March 15, 2023 12:00am Start: 01-19-2023 take 1 dose by inhal ation every four hours as needed albuterol 2.5 mg/3 mL (0.083%) inhalation solution Dose : 2.5 mg = 3 mL, Inhalation, q4h, PRN as needed for wheezing, # 100 EA, 0 Refill(s), Pharmacy: [facility]/pharmacy #[id number], 172.7, cm, 01/17/23 13:01:00 EST, Height Start Date: 01/19/23 Status: Ordered Start: 08-03-2021 take 2 puff(s) by in halation every four hours as needed for wheezing ProAir HFA MDI (90 mcg/inh) inhalation aerosol 2 puff(s), Inhalation, q4h, PRN as needed for wheezing, # 8.5 gram(s), 5 Refill(s), Pharmacy: [facility]/pharmacy #[id number], Asthma, 172, cm, 05/26/21 8:38:00 EDT, Height, kg, 05/26/21 8:38:00 EDT, Dosing Weight Start Date: 08/03/21 Status: Ordered Start: 08-03-2021 take 2 puff(s) by in halation every four hours as needed for wheezing ProAir HFA MDI (90 mcg/inh) inhalation aerosol 2 puff(s), Inhalation, q4h, PRN as needed for wheezing, # 8.5 gram(s), 5 Refill(s), Pharmacy: [facility]/pharmacy #[id number], Asthma, 172, cm, 05/26/21 8:38:00 EDT, Height, kg, 05/26/21 8:38:00 EDT, Dosing Weight Start Date: 08/03/21 Status: Ordered Start: 03-01-2020 albuterol (PRO VENTIL) (2.5 MG/3ML) 0.083% nebulizer solution 2.5 mg 0 03/01/2020 Active Start: 03-01-2020 take 1 dose by inhal ation every four hours as needed albuterol 2.5 mg/3 mL (0.083%) inhalation solution Dose : 2.5 mg = 3 mL, Inhalation, q4h, PRN for wheezing, # 60 EA, 0 Refill(s), Pharmacy: [facility]/pharmacy #[id number], Asthma, 175.3, cm, 11/17/19 13:19:00 EST, Height, kg, 11/17/19 13:19:00 EST, Dosing Weight Start Date: 03/01/20 Status: Ordered Start: 03-01-2020 take 1 dose by inhal ation every four hours as needed albuterol 2.5 mg/3 mL (0.083%) inhalation solution Dose : 2.5 mg = 3 mL, Inhalation, q4h, PRN for wheezing, # 60 EA, 0 Refill(s), Pharmacy: [facility]/pharmacy #[id number], Asthma, 175.3, cm, 11/17/19 13:19:00 EST, Height, kg, 11/17/19 13:19:00 EST, Dosing Weight Start Date: 03/01/20 Status: Ordered Albuterol (Eqv-ProAir HFA) 90 mcg/inh inhalation aerosol (9 sources) Start: 04-07-2023 take 1 dose by inhalation every four hours as needed for wheezing Albuterol (Eqv-ProAir HFA) 90 mcg/inh inhalation aerosol Dose = 2 puff(s), Inhalation, q4h, PRN as needed for wheezing, # 8.5 gram(s), 3 Refill(s), Pharmacy: [facility]/pharmacy #[id number], 172, cm, 02/14/23 9:07:00 EDT, Height, kg, 02/14/23 9:07:00 EDT, Dosing Weight Start Date: 04/07/23 Status: Ordered Start: 01-19-2023 take 1 dose by inhal ation every four hours as needed for wheezing Albuterol (Eqv-ProAir HFA) 90 mcg/inh inhalation aerosol Dose = 2 puff(s), Inhalation, q4h, PRN as needed for wheezing, # 8.5 gram(s), 0 Refill(s), Pharmacy: [facility]/pharmacy #[id number], 172.7, cm, 01/17/23 13:01:00 EST, Height Start Date: 01/19/23 Status: Ordered alpha tocopherol (Vitamin E) 100 units capsule (3 sources) take 1 capsule by mouth once daily alpha tocopherol (Vitamin E) 100 units capsule Take 100 Units by mouth daily. Active ALPRAZolam 0.5 mg oral tablet (13 sources) Benzodiazepine Start: 04-29-2025 take 1-2 tablets by mouth once daily as needed for anxiety ALPRAZolam 0.5 mg oral tablet See Instructions, PRN anxiety, 1 to 2 tabs daily as needed for panic attacks., # 45 tab(s), 2 Refill(s), [id number], Anxiety, 172.7, cm, 04/27/25 14:09:00 EDT, Height, 119.3, kg, 04/27/25 14:09:00 EDT, Dosing Weight Start Date: 04/29/25 Status: Ordered Medication Dispense Status: Completed Quantity: 45.0 Unit: tab(s) Total Allowed Fills: 3 Fills Dispensed: 0 Indications: Anxiety disorder, unspecified; Start: 12-22-2024 take 1-2 tablets by mouth once daily as needed for anxiety ALPRAZolam 0.5 mg oral tablet See Instructions, PRN anxiety, 1 to 2 tabs daily as needed for panic attacks., # 45 tab(s), 2 Refill(s), Pharmacy: [facility]/pharmacy #[id number], Anxiety, 172.7, cm, 10/10/24 7:52:00 EST, Height, 115.9, kg, 10/10/24 7:52:00 EST, Dosing Weight Start Date: 12/22/24 Status: Ordered Quantity: 45.0 Unit: tab(s) Repeat number: 3 Indications: Anxiety disorder, unspecified; Start: 07-01-2024 End: 07-31-2024 ALPRAZolam 0.5 mg oral table t Dose : 0.5 mg = 1 tab(s), Oral, qHS, PRN as needed for anxiety, X 30 day(s), # 30 tab(s), 0 Refill(s), 07/31/24 4:23:00 PM EDT, Pharmacy: [facility]/pharmacy #[id number], Anxiety, 172.7, cm, 06/30/24 10:47:00 EDT, Height, 112.9, kg, 06/30/24 10:47:00 EDT, Dosing Weight Start Date: 07/01/24 Stop Date: 07/31/24 Status: Ordered Start: 05-30-2024 End: 06-20-2024 ALPRAZolam 0.5 mg oral table t Dose : 0.5 mg = 1 tab(s), Oral, qHS, PRN as needed for anxiety, X 21 day(s), # 21 tab(s), 0 Refill(s), 06/20/24 11:57:00 AM EDT, Pharmacy: [facility]/pharmacy #[id number], Anxiety, 170.2, cm, 05/30/24 11:33:00 EDT, Height, 110, kg, 05/30/24 11:33:00 EDT, Dosing Weight Start Date: 05/30/24 Stop Date: 06/20/24 Status: Ordered take 1 tablet by [facility] once daily as needed for anxiety ALPRAZolam (Niravam) 0.5 MG disintegrating tablet Take 0.5 mg by mouth Nightly as needed for anxiety. Active aspirin 81 mg delayed release oral tablet (20 sources) Platelet Aggregation Inhibitor, Nonsteroidal Anti-inflammatory Drug Start: 03-15-2023 aspirin 81 mg ora l delayed release tablet Dose : 81 mg = 1 tab(s), Oral, Daily, 0 Refill(s) Start Date: 06/18/24 Status: Ordered Medication Dispense Status: Completed Total Allowed Fills: 1 Fills Dispensed: 0 Start: 01-18-2023 aspirin 81 mg oral tablet, chewable Dose : 81 mg = 1 tab(s), Oral, qDayM, # 30 tab(s), 0 Refill(s), [id number], 172.7, cm, 01/17/23 13:01:00 EST, Height Start Date: 01/18/23 Status: Ordered atorvastatin 10 mg oral tablet (20 sources) HMG-CoA Reductase Inhibitor Start: 12-26-2021 atorvastatin 10 mg oral tablet Dose : 10 mg = 1 tab(s), Oral, qDay, # 30 tab(s), 11 Refill(s), Pharmacy: [facility]/pharmacy #[id number], 172, cm, 11/29/23 13:55:00 EST, Height, kg, 11/29/23 13:55:00 EST, Dosing Weight Start Date: 12/02/23 Status: Ordered Quantity: 30.0 Unit: tab(s) Repeat number: 12 benzonatate 100 mg oral capsule (5 sources) Non-narcotic Antitussive Start: 05-08-2024 benzonatate 100 mg oral capsule Dose : 100 mg = 1 cap(s), 0 Refill(s) Start Date: 05/08/24 Status: Ordered Start: 10-08-2023 Tessalon Perle s 100 mg oral capsule Dose : 100 mg = 1 cap(s), Oral, q8h, PRN as needed for cough, # 30 cap(s), 0 Refill(s), [id number], Cough, 172, cm, 08/08/23 15:51:00 EDT, Height, kg, 08/23/23 16:42:00 EDT, Dosing Weight Start Date: 10/08/23 Status: Ordered biotin 10 mg oral tablet (10 sources) Start: 01-17-2023 biotin 10 mg o ral tablet Dose : 10 mg = 1 tab(s), Oral, qDay Start Date: 01/17/23 Status: Ordered Start: 04-27-2021 biotin 10 mg o ral tablet Dose : 10 mg = 1 tab(s), Oral, qDay, # 30 tab(s), 11 Refill(s), Pharmacy: [facility]/pharmacy #[id number], 172, cm, 04/27/21 13:58:00 EDT, Height, kg, 04/27/21 13:58:00 EDT, Dosing Weight Start Date: 04/27/21 Status: Ordered Blood Glucose Test Machine (2 sources) Start: 05-13-2021 Blood Glucose Test Machine See Instructions, patient preference True Metrix, E11.9, pt tests 1 per day, # 1 EA, 0 Refill(s), Pharmacy: [facility]/pharmacy #[id number], 172, cm, 05/11/21 12:58:00 EDT, Height, 128, kg, 05/11/21 12:58:00 EDT, Dosing Weight Start Date: 05/13/21 Status: Ordered budesonide 3 mg delayed release oral capsule (15 sources) Corticosteroid Start: 03-07-2024 budesonide, en teric coated (ENTOCORT EC) 3 mg 24 hr capsule 3 mg. 03/07/2024 Active Start: 02-18-2024 take 3 mg by mouth o nce daily in the morning Budesonide Active 3 MG PO EVERY MORNING February 18, 2024 12:00am take 1 capsule by mo uth once daily in the morning, then take 3 mg by mouth every twenty-four hours budesonide EC (Entocort EC) 3 MG 24 hr capsule Take 6 mg by mouth every morning. Active 24 hr buPROPion hydrochloride 150 mg extended release oral tablet (17 sources) Aminoketone Start: 03-15-2023 take 1 tablet by mouth once daily buPROPion 150 mg/24 hours (XL) oral tablet, extended release See Instructions, TAKE 1 TABLET BY MOUTH EVERY DAY, # 90 tab(s), 3 Refill(s), Pharmacy: [facility]/pharmacy #[id number], 172.7, cm, 03/11/25 11:22:00 EDT, Height, kg, 03/11/25 11:22:00 EDT, Dosing Weight Start Date: 03/20/25 Status: Ordered Medication Dispense Status: Completed Quantity: 90.0 Unit: tab(s) Total Allowed Fills: 4 Fills Dispensed: 0 Start: 01-17-2023 take 1 tablet by katiana th every hour, then take 1 tablet by mouth once daily buPROPion 150 mg/24 hours (XL) oral tablet, extended release Dose : 150 mg = 1 tab(s), Oral, qDay Start Date: 01/17/23 Status: Ordered take 1 tablet by katiana th twice daily buPROPion SR (Wellbutrin SR) 150 MG 12 hr tablet Take by mouth 2 times daily. Do not crush, chew, or split. Active Calcium and Magnesium oral tablet (2 sources) Start: 03-07-2024 take 1 tablet by mouth once daily Calcium and Magnesium oral tablet Dose = 1 tab(s), Oral, qDay, 750mg, 0 Refill(s) Start Date: 03/07/24 Status: Ordered carisoprodol 250 mg oral tablet (1 source) Muscle Relaxant Start: 08-26-2025 End: 09-09-2025 carisoprodol 250 mg oral tablet Dose : 250 mg = 1 tab(s), Oral, QID, PRN Muscle spasm, 3 times a day and at bedtime, X 14 day(s), # 56 tab(s), 0 Refill(s), 09/09/25 1:37:00 PM EDT, Pharmacy: [facility]/pharmacy #[id number], Lumbar radiculopathy, 172.7, cm, 08/26/25 13:13:00 EDT, Height, 119, kg, 08/26/25 13:13:00 EDT, Dosing Weight Start Date: 08/26/25 Stop Date: 09/09/25 Status: Ordered Medication Dispense Status: Completed Quantity: 56.0 Unit: tab(s) Total Allowed Fills: 1 Fills Dispensed: 0 Indications: Radiculopathy, lumbar region; cephalexin 500 mg oral capsule (1 source) Cephalosporin Antibacterial Start: 01-27-2024 End: 02-06-2024 cephalexin 500 mg oral capsule Dose : 500 mg = 1 cap(s), Oral, TID, X 10 day(s), # 30 cap(s), 0 Refill(s), 02/06/24 1:14:00 PM EDT, 122 Start Date: 01/27/24 Stop Date: 02/06/24 Status: Ordered cetirizine hydrochloride 10 mg oral tablet (20 sources) Histamine-1 Receptor Antagonist Start: 03-15-2023 take 10 mg by mouth once daily Cetirizine Active 10 MG PO DAILY March 15, 2023 12:00am Start: 01-17-2023 cetirizine 10 mg oral capsule Dose : 10 mg = 1 cap(s), Oral, qDay, 0 Refill(s) Start Date: 01/17/23 Status: Ordered Medication Dispense Status: Completed Total Allowed Fills: 1 Fills Dispensed: 0 cetirizine (ZyrT EC) 10 MG chewable tablet Chew daily. Active cholecalciferol 0.125 mg oral capsule (11 sources) Vitamin D Start: 03-15-2023 take 125 ug by mouth once daily Cholecalciferol (Vitamin D3) Active 125 MCG PO DAILY March 15, 2023 12:00am Start: 11-25-2021 take 1 capsule by [facility] every other week cholecalciferol 1250 mcg (50,000 intl units) oral capsule See Instructions, 1 cap(s) Oral every other week, # 6 cap(s), 0 Refill(s), Pharmacy: [facility]/pharmacy #[id number], 172, cm, 11/23/21 10:38:00 EST, Height, kg, 11/23/21 10:38:00 EST, Dosing Weight Start Date: 11/25/21 Status: Ordered Start: 11-25-2021 take 1 capsule by [facility] every other week cholecalciferol 1250 mcg (50,000 intl units) oral capsule See Instructions, 1 cap(s) Oral every other week, # 6 cap(s), 0 Refill(s), Pharmacy: [facility]/pharmacy #[id number], 172, cm, 11/23/21 10:38:00 EST, Height, kg, 11/23/21 10:38:00 EST, Dosing Weight Start Date: 11/25/21 Status: Ordered Cholecalciferol (VITAMIN D-3 PO) Take 250 mcg by mouth. Active cloNIDine hydrochloride 0.3 mg oral tablet (20 sources) Central alpha-2 Adrenergic Agonist Start: 08-28-2025 cloNIDine 0.3 mg ora l tablet Dose : 0.3 mg = 1 tab(s), Oral, BID, # 180 tab(s), 1 Refill(s), Pharmacy: [facility]/pharmacy #[id number], 172.7, cm, 08/26/25 13:13:00 EDT, Height, kg, 08/26/25 13:13:00 EDT, Dosing Weight Start Date: 08/28/25 Status: Ordered Medication Dispense Status: Completed Quantity: 180.0 Unit: tab(s) Total Allowed Fills: 2 Fills Dispensed: 0 Start: 05-02-2024 cloNIDine 0.3 mg oral tablet Dose : 0.3 mg = 1 tab(s), Oral, BID, # 60 tab(s), 5 Refill(s), [id number], 172.7, cm, 08/18/24 13:51:00 EDT, Height, kg, 08/18/24 13:51:00 EDT, Dosing Weight Start Date: 09/15/24 Status: Ordered Medication Dispense Status: Completed Quantity: 60.0 Unit: tab(s) Total Allowed Fills: 6 Fills Dispensed: 0 Start: 03-15-2023 cloNIDine 0.3 mg oral tablet Dose : 0.3 mg = 1 tab(s), Oral, BID, # 60 tab(s), 5 Refill(s), [id number], 172, cm, 08/08/23 15:51:00 EDT, Height, kg, 08/23/23 16:42:00 EDT, Dosing Weight Start Date: 10/26/23 Status: Ordered Start: 01-17-2023 cloNIDine 0.3 mg oral tablet Dose : 0.3 mg = 1 tab(s), Oral, BID Start Date: 01/17/23 Status: Ordered Start: 01-24-2022 cloNIDine 0.2 mg oral tablet Dose : 0.2 mg = 1 tab(s), Oral, TID, # 90 tab(s), 11 Refill(s), [id number], 172, cm, 01/12/22 11:01:00 EST, Height, kg, 01/12/22 11:01:00 EST, Dosing Weight Start Date: 01/24/22 Status: Ordered Start: 02-05-2020 cloNIDine (CAT APRES) 0.1 MG tablet 0.1 mg 0 02/05/2020 Active cyclobenzaprine hydrochloride 10 mg oral tablet (6 sources) Muscle Relaxant Start: 06-05-2024 take 1 tablet by mouth three times daily as needed cyclobenzaprine (FLEXERIL) 10 mg tablet TAKE 1 TABLET BY MOUTH 3 TIMES A DAY MUSCLE SPASMS NEEDED 06/05/2024 Active Daily Marguerite oral tablet (2 sources) Start: 02-10-2020 take 1 tablet by mouth once daily Daily Marguerite oral tablet Dose = 1 tab(s), Oral, Daily, # 90 tab(s), 3 Refill(s), [id number], 175.3, cm, 11/17/19 13:19:00 EST, Height, kg, 11/17/19 13:19:00 EST, Dosing Weight Start Date: 02/10/20 Status: Ordered diazePAM 10 mg oral tablet (2 sources) Benzodiazepine Start: 08-28-2025 take 1 tablet by mouth every hour Valium 10 mg oral tablet See Instructions, Take 1 tab 1 hour prior to MRI. If needed, take an additional 1 tab when you get to MRI department., # 2 tab(s), 0 Refill(s), Pharmacy: [facility]/pharmacy #[id number], Claustrophobia, 172.7, cm, 08/26/25 13:13:00 EDT, Height, 119, kg, 08/26/25 13:13:00 EDT, Dosing Weight Start Date: 08/28/25 Status: Ordered Medication Dispense Status: Completed Quantity: 2.0 Unit: tab(s) Total Allowed Fills: 1 Fills Dispensed: 0 Indications: Claustrophobia; DME MISCellaneous (20 sources) Start: 11-29-2023 DME MISCellaneous See Instructions, freestyle philly 3 sensors 1 sensor every 14 days #2kits for 28 days and 3 refills E11.65., # 2 EA, 3 Refill(s), [id number], 172, cm, 11/29/23 13:55:00 EST, Height, 125, kg, 11/29/23 13:55:00 EST, Dosing Weight Start Date: 11/29/23 Status: Ordered Start: 11-29-2023 DME MISCellane ous See Instructions, Freestyle [place] 3 Sensor. 1 sensor every 14 days. 2 sensors per 30 days. 3 refills. E11.9, # 2 EA, 3 Refill(s), Pharmacy: [facility]/pharmacy #[id number], 172, cm, 11/29/23 13:55:00 EST, Height, 125, kg, 11/29/23 13:55:00 EST, Dosing Weight Start Date: 11/29/23 Status: Ordered Start: 01-12-2022 DME MISCellane ous See Instructions, [employer] [place] 2 14 day sensor. 1 sensor every 14 days as directed., # 2 EA, 3 Refill(s), Pharmacy: [facility]/pharmacy #[id number], 172, cm, 01/12/22 11:01:00 EST, Height, 133.3, kg, 01/12/22 11:01:00 EST, Dosing Weight Start Date: 01/12/22 Status: Ordered Start: 01-12-2022 DME MISCellane ous See Instructions, [employer] [place] 2 Moody.Use as directed. ., # 1 EA, 0 Refill(s), Pharmacy: [facility]/pharmacy #[id number], 172, cm, 01/12/22 11:01:00 EST, Height, 133.3, kg, 01/12/22 11:01:00 EST, Dosing Weight Start Date: 01/12/22 Status: Ordered docosahexaenoic acid 144 mg / eicosapentaenoic acid 216 mg / vitamin e 2 unt oral capsule (4 sources) Start: 03-15-2023 take 1 capsule by mouth once daily Mclean-3 Fatty Acids-Fish Oil (Fish Oil) 360-1,200 mg capsule Active 1 CAP PO DAILY March 15, 2023 12:00am docusate sodium 100 mg oral capsule (8 sources) Start: 04-26-2024 Colace 100 mg oral capsule Dose : 100 mg = 1 cap(s), Oral, BID, PRN Constipation, # 60 cap(s), 0 Refill(s), Pharmacy: [facility]/pharmacy #[id number], Constipation, 172.7, cm, 04/24/24 0:56:00 EDT, Height, kg, 04/24/24 0:56:00 EDT, Dosing Weight Start Date: 04/26/24 Status: Ordered Docusate Calcium (STOOL SOFTENER PO) Take by mouth. Active famotidine 20 mg oral tablet (11 sources) Histamine-2 Receptor Antagonist Start: 01-17-2023 take 20 mg by mouth once daily Famotidine Active 20 MG PO DAILY March 15, 2023 12:00am Start: 01-01-2022 Pepcid 20 mg o ral tablet Dose : 20 mg = 1 tab(s), Oral, qHS, # 30 tab(s), 0 Refill(s), other reason (Rx) Start Date: 01/12/22 Status: Ordered Start: 02-19-2020 famotidine (PE PCID) 20 MG tablet 20 mg 0 02/19/2020 Active Fish Oils (2 sources) Start: 01-17-2023 Fish Oil 1200 mg oral capsule Dose : 1,200 mg = 1 cap(s), Oral, qDay Start Date: 01/17/23 Status: Ordered furosemide 20 mg oral tablet (3 sources) Loop Diuretic Start: 02-01-2022 End: 03-03-2022 furosemide 20 mg oral tablet Dose : 20 mg = 1 tab(s), Oral, Daily, TAKE 1 TABLET BY MOUTH EVERY DAY, # 30 tab(s), 0 Refill(s), Pharmacy: [facility]/pharmacy #[id number], 172, cm, 01/12/22 11:01:00 EST, Height, kg, 01/12/22 11:01:00 EST, Dosing Weight Start Date: 02/01/22 Stop Date: 03/03/22 Status: Ordered Start: 10-15-2019 End: 10-09-2020 furosemide (LASIX) 20 MG tab let 20 mg 0 10/15/2019 10/09/2020 Active hyoscyamine sulfate 0.125 mg oral tablet (7 sources) Start: 03-15-2023 Hyoscyamine Ortiz lfate Active 0.125 MG PO 2 to 4 times per day March 15, 2023 12:00am Start: 01-17-2023 hyoscyamine 0. 125 mg sublingual tablet Dose : 0.125 mg = 1 tab(s), Sublingual, q4h, PRN Control symptoms Start Date: 01/17/23 Status: Ordered Start: 12-11-2022 Levsin 0.125 m g oral tablet Dose : 0.125 mg = 1 tab(s), Oral, QID, As needed for pain, # 10 tab(s), 0 Refill(s), Abdominal pain Ovarian cyst Start Date: 12/11/22 Status: Ordered Start: 02-24-2022 End: 03-06-2022 hyoscyamine 0.125 mg subling ual tablet Dose : 0.125 mg = 1 tab(s), Sublingual, q4h, # 60 tab(s), 0 Refill(s) Start Date: 02/24/22 Stop Date: 03/06/22 Status: Ordered 3 ml insulin aspart protamine, human 70 unt/ml / insulin aspart, human 30 unt/ml pen injector (2 sources) Insulin Analog Start: 01-17-2023 inject 1 dose by subcutaneous injection twice daily NovoLOG Mix 70/30 FlexPen 3 mL Pen Dose : 10 unit(s) =, Subcutaneous, BID Start Date: 01/17/23 Status: Ordered Start: 05-05-2021 inject 1 dose by sub cutaneous injection twice daily NovoLOG Mix 70/30 FlexPen 3 mL Pen Dose : 25 unit(s) =, Subcutaneous, BID, # 18 mL, 6 Refill(s), Pharmacy: [facility]/pharmacy #[id number], 172, cm, 04/27/21 13:58:00 EDT, Height, kg, 04/27/21 13:58:00 EDT, Dosing Weight Start Date: 05/05/21 Status: Ordered levalbuterol 0.21 mg/ml inhalation solution (20 sources) beta2-Adrenergic Agonist Start: 04-28-2025 take 1 dose by inhalation three times daily as needed Xopenex 0.63 mg/3 mL inhalation solution Dose : 0.63 mg = 3 mL, Nebulized, TID, PRN as needed for wheezing, # 216 mL, 3 Refill(s), Pharmacy: [facility]/pharmacy #[id number], 172.7, cm, 04/27/25 14:09:00 EDT, Height, kg, 04/27/25 14:09:00 EDT, Dosing Weight Start Date: 04/28/25 Status: Ordered Medication Dispense Status: Completed Quantity: 216.0 Unit: mL Total Allowed Fills: 4 Fills Dispensed: 0 Start: 11-11-2024 take 1 dose by inhal ation three times daily as needed Xopenex 0.63 mg/3 mL inhalation solution Dose : 0.63 mg = 3 mL, Nebulized, TID, PRN as needed for wheezing, # 810 mL, 3 Refill(s), Pharmacy: [facility]/pharmacy #[id number], 172.7, cm, 10/10/24 7:52:00 EST, Height, kg, 10/10/24 7:52:00 EST, Dosing Weight Start Date: 11/11/24 Status: Ordered Quantity: 810.0 Unit: mL Repeat number: 4 Start: 03-15-2023 take 0.63 mg by inhalation onc e Levalbuterol Hcl Active 0.63 MG INHALATION ONCE March 15, 2023 12:00am Start: 02-14-2023 End: 03-16-2023 take 1 dose by inhalation three times daily as needed Xopenex 0.63 mg/3 mL inhalation solution Dose : 0.63 mg = 3 mL, Nebulized, TID, PRN as needed for wheezing, # 270 mL, 0 Refill(s), Pharmacy: [facility]/pharmacy #[id number], 172, cm, 02/14/23 9:07:00 EDT, Height Start Date: 02/14/23 Stop Date: 03/16/23 Status: Ordered Start: 01-17-2023 take 1 dose by inhal ation three times daily as needed Xopenex 0.63 mg/3 mL inhalation solution Dose : 0.63 mg = 3 mL, Nebulized, TID, PRN as needed for wheezing Start Date: 01/17/23 Status: Ordered Start: 09-24-2019 take 1 dose by inhal ation three times daily as needed Xopenex 0.63 mg/3 mL inhalation solution Dose : 0.63 mg = 3 mL, Inhalation, TID, PRN wheezing, # 96 EA, 0 Refill(s) Start Date: 09/24/19 Status: Ordered Start: 09-24-2019 take 1 dose by inhal ation three times daily as needed Xopenex 0.63 mg/3 mL inhalation solution Dose : 0.63 mg = 3 mL, Inhalation, TID, PRN wheezing, # 96 EA, 0 Refill(s) Start Date: 09/24/19 Status: Ordered levalbuterol (Xo penex) 0.63 MG/3ML nebulizer solution Take 0.63 mg by nebulization three times daily. Active levalbuterol (Xo penex) 45 MCG/ACT inhaler Inhale. Active levalbuterol tartrate HFA 45mcg/inh inhaler (7 sources) Start: 05-11-2025 End: 11-07-2025 take 1 dose by inhalation every six hours as needed levalbuterol tartrate HFA 45mcg/inh inhaler Dose = 1 puff(s), Inhalation, q6hr, PRN Shortness of breath (SOB), # 3 EA, 1 Refill(s), Pharmacy: [facility]/pharmacy #[id number], Asthma, 172.7, cm, 04/27/25 14:09:00 EDT, Height, kg, 04/27/25 14:09:00 EDT, Dosing Weight Start Date: 05/11/25 Stop Date: 11/07/25 Status: Ordered Medication Dispense Status: Completed Quantity: 3.0 Unit: EA Total Allowed Fills: 2 Fills Dispensed: 0 Indications: Unspecified asthma, uncomplicated; Start: 02-27-2025 take 1 dose by inhal ation every six hours as needed levalbuterol tartrate HFA 45mcg/inh inhaler Dose = 1 puff(s), Inhalation, q6hr, PRN Shortness of breath (SOB), # 15 gram(s), 1 Refill(s), Pharmacy: [facility]/pharmacy #[id number], Asthma, 175.3, cm, 02/18/25 15:23:00 EDT, Height, kg, 02/18/25 15:23:00 EDT, Dosing Weight Start Date: 02/27/25 Status: Ordered Quantity: 15.0 Unit: g Repeat number: 2 Indications: Unspecified asthma, uncomplicated; Start: 12-16-2024 take 1 dose by inhal ation every six hours as needed levalbuterol tartrate HFA 45mcg/inh inhaler Dose = 1 puff(s), Inhalation, q6hr, PRN Shortness of breath (SOB), # 15 gram(s), 1 Refill(s), Pharmacy: [facility]/pharmacy #[id number], Asthma, 172.7, cm, 10/10/24 7:52:00 EST, Height, kg, 10/10/24 7:52:00 EST, Dosing Weight Start Date: 12/16/24 Status: Ordered Quantity: 15.0 Unit: g Repeat number: 2 Indication: Unspecified asthma, uncomplicated Lidocaine (4 sources) Antiarrhythmic, Amide Local Anesthetic Start: 08-14-2025 lidocaine 5% topical patch Apply 1 patch(es), Topical, qDay, remove patches after 12 hours, # 30 patch(es), 0 Refill(s), Pharmacy: [facility]/pharmacy #[id number], 172.7, cm, 04/27/25 14:09:00 EDT, Height, 119.3, kg, 04/27/25 14:09:00 EDT, Dosing Weight Start Date: 08/14/25 Status: Ordered Medication Dispense Status: Completed Quantity: 30.0 Unit: patch(es) Total Allowed Fills: 1 Fills Dispensed: 0 Start: 08-14-2025 lidocaine 5% t opical patch Apply 1 patch(es), Topical, qDay, remove patches after 12 hours, # 30 patch(es), 0 Refill(s), Pharmacy: [facility]/pharmacy #[id number], 172.7, cm, 04/27/25 14:09:00 EDT, Height, 119.3, kg, 04/27/25 14:09:00 EDT, Dosing Weight Start Date: 08/14/25 Status: Ordered Medication Dispense Status: Completed Quantity: 30.0 Unit: patch(es) Total Allowed Fills: 1 Fills Dispensed: 0 Start: 02-11-2025 End: 02-25-2025 Lidoderm 5% topical patch Ap ply 1 patch(es), Topical, qDay, remove patches after 12 hours, X 14 day(s), # 14 patch(es), 0 Refill(s), Pharmacy: [facility]/pharmacy #[id number], 172.2, cm, 02/06/25 4:31:00 EDT, Height, 120.2, kg, 02/06/25 4:31:00 EDT, Dosing Weight Start Date: 02/11/25 Stop Date: 02/25/25 Status: Ordered Quantity: 14.0 Unit: patch(es) Repeat number: 1 24 hr metFORMIN hydrochloride 500 mg extended release oral tablet (20 sources) Biguanide Start: 08-11-2025 metFORMIN 500 mg oral tablet EXTENDED RELEASE Dose : 1,500 mg = 3 tab(s), Oral, qDay, # 90 tab(s), 4 Refill(s), Pharmacy: [facility]/pharmacy #[id number], 172.7, cm, 04/27/25 14:09:00 EDT, Height, kg, 04/27/25 14:09:00 EDT, Dosing Weight Start Date: 08/11/25 Status: Ordered Medication Dispense Status: Completed Quantity: 90.0 Unit: tab(s) Total Allowed Fills: 5 Fills Dispensed: 0 Start: 08-19-2024 MetFORMIN (Eqv -Glucophage XR) 500 mg oral tablet, EXTENDED RELEASE Dose : 1,500 mg = 3 tab(s), Oral, qDay, # 270 tab(s), 1 Refill(s), Pharmacy: [facility]/pharmacy #[id number], 172.7, cm, 08/18/24 13:51:00 EDT, Height, kg, 08/18/24 13:51:00 EDT, Dosing Weight Start Date: 08/19/24 Status: Ordered Medication Dispense Status: Completed Quantity: 270.0 Unit: tab(s) Total Allowed Fills: 2 Fills Dispensed: 0 Start: 07-14-2024 MetFORMIN (Eqv -Glucophage XR) 500 mg oral tablet, EXTENDED RELEASE Dose : 1,500 mg = 3 tab(s), Oral, qDay, # 270 tab(s), 1 Refill(s), Pharmacy: [facility]/pharmacy #[id number], 172.7, cm, 07/03/24 10:05:00 EDT, Height, kg, 07/03/24 10:05:00 EDT, Dosing Weight Start Date: 07/14/24 Status: Ordered Start: 01-11-2024 take 1500 mg by mout h once daily Metformin Active 1500 MG PO DAILY January 11, 2024 2:59pm Start: 03-15-2023 End: 01-11-2024 MetFORMIN (Eqv-Glucophage XR ) 500 mg oral tablet, EXTENDED RELEASE Dose : 1,500 mg = 3 tab(s), Oral, qDay, # 270 tab(s), 1 Refill(s), Pharmacy: [facility]/pharmacy #[id number], 172, cm, 08/08/23 15:51:00 EDT, Height, kg, 08/23/23 16:42:00 EDT, Dosing Weight Start Date: 11/10/23 Status: Ordered Start: 01-17-2023 metFORMIN 500 mg oral tablet (IR) Dose : 1,500 mg = 3 tab(s), Oral, qDay Start Date: 01/17/23 Status: Ordered Start: 01-12-2022 MetFORMIN (Eqv -Glucophage XR) 500 mg oral tablet, EXTENDED RELEASE Dose : 1,500 mg = 3 tab(s), Oral, qDay, # 270 tab(s), 3 Refill(s), Pharmacy: [facility]/pharmacy #[id number], 172, cm, 01/12/22 11:01:00 EST, Height, kg, 01/12/22 11:01:00 EST, Dosing Weight Start Date: 01/12/22 Status: Ordered Start: 09-22-2019 metFORMIN (GLU COPHAGE) 500 MG tablet 500 mg 0 09/22/2019 Active take 3 tablets by mo uth once daily metFORMIN (Glucophage) 500 MG tablet Take 500 mg by mouth daily. 3 tabs at night Active methocarbamol 500 mg oral tablet (2 sources) Muscle Relaxant Start: 02-04-2025 End: 02-14-2025 methocarbamol 500 mg oral tablet Dose : 500 mg = 1 tab(s), Oral, QID, X 10 day(s), # 40 tab(s), 0 Refill(s), 02/14/25 7:49:00 AM EDT, Pharmacy: [facility]/pharmacy #[id number], 175.3, cm, 02/04/25 7:32:00 EDT, Height, kg, 02/04/25 7:32:00 EDT, Dosing Weight Start Date: 02/04/25 Stop Date: 02/14/25 Status: Ordered Quantity: 40.0 Unit: tab(s) Repeat number: 1 methylPREDNISolone 4 mg oral tablet (2 sources) Corticosteroid Start: 02-11-2025 End: 02-17-2025 Medrol Dosepak 4 mg oral tablet 1 packet(s), Oral, qDay, as directed on package labeling, X 6 day(s), # 21 tab(s), 0 Refill(s), 02/17/25 8:50:00 PM EDT, Pharmacy: [facility]/pharmacy #[id number], 172.2, cm, 02/06/25 4:31:00 EDT, Height, kg, 02/06/25 4:31:00 EDT, Dosing Weight Start Date: 02/11/25 Stop Date: 02/17/25 Status: Ordered Quantity: 21.0 Unit: tab(s) Repeat number: 1 Start: 04-21-2024 End: 04-27-2024 Medrol Dosepak 4 mg oral tab let Per Dosepak Instructions, Oral, Daily, as directed on package labeling, X 6 day(s), # 1 EA, 0 Refill(s), 04/27/24 8:22:00 AM EDT Start Date: 04/21/24 Stop Date: 04/27/24 Status: Ordered montelukast 10 mg oral tablet (20 sources) Leukotriene Receptor Antagonist Start: 09-11-2025 Singulair 10 mg oral tablet Dose : 10 mg = 1 tab(s), Oral, qDay, # 90 tab(s), 3 Refill(s), [id number], Asthma, 172.7, cm, 08/26/25 13:13:00 EDT, Height, kg, 08/26/25 13:13:00 EDT, Dosing Weight Start Date: 09/11/25 Status: Ordered Medication Dispense Status: Completed Quantity: 90.0 Unit: tab(s) Total Allowed Fills: 4 Fills Dispensed: 0 Indications: Unspecified asthma, uncomplicated; Start: 10-01-2023 Singulair 10 m g oral tablet Dose : 10 mg = 1 tab(s), Oral, qDay, # 90 tab(s), 3 Refill(s), Pharmacy: [facility]/pharmacy #[id number], Asthma, 172.7, cm, 07/03/24 10:05:00 EDT, Height, kg, 07/03/24 10:05:00 EDT, Dosing Weight Start Date: 07/15/24 Status: Ordered Medication Dispense Status: Completed Quantity: 90.0 Unit: tab(s) Total Allowed Fills: 4 Fills Dispensed: 0 Indications: Unspecified asthma, uncomplicated; Multivitamin preparation (2 sources) Start: 01-17-2023 take 1 tablet by mouth once daily Multivitamin Dose = 1 tab(s), Oral, qDay Start Date: 01/17/23 Status: Ordered naproxen 250 mg oral tablet (1 source) Nonsteroidal Anti-inflammatory Drug Start: 09-23-2025 naproxen 250 mg oral tablet Dose : 250 mg = 1 tab(s), Oral, BID, # 60 tab(s), 0 Refill(s), Pharmacy: [facility]/pharmacy #[id number], Lower back pain, 172.7, cm, 09/23/25 11:44:00 EST, Height, kg, 09/23/25 11:44:00 EST, Dosing Weight Start Date: 09/23/25 Status: Ordered Medication Dispense Status: Completed Quantity: 60.0 Unit: tab(s) Total Allowed Fills: 1 Fills Dispensed: 0 Indications: Low back pain, unspecified; NovoLOG Mix 70/30 FlexPen 3 mL Pen (1 source) Start: 05-05-2021 inject 1 dose by subcutaneous injection twice daily NovoLOG Mix 70/30 FlexPen 3 mL Pen Dose : 25 unit(s) =, Subcutaneous, BID, # 18 mL, 6 Refill(s), Pharmacy: [facility]/pharmacy #[id number], 172, cm, 04/27/21 13:58:00 EDT, Height, kg, 04/27/21 13:58:00 EDT, Dosing Weight Start Date: 05/05/21 Status: Ordered omeprazole 40 mg delayed release oral capsule (20 sources) Proton Pump Inhibitor Start: 03-07-2024 omeprazole 40 mg oral delayed release capsule Dose : 40 mg = 1 cap(s), Oral, qDay, # 90 cap(s), 0 Refill(s) Start Date: 03/07/24 Status: Ordered Medication Dispense Status: Completed Quantity: 90.0 Unit: cap(s) Total Allowed Fills: 1 Fills Dispensed: 0 Start: 03-15-2023 End: 02-12-2024 take 40 mg by mouth twice daily Omeprazole Active 40 M G PO TWICE A DAY 60 January 25, 2024 3:18pm Start: 01-17-2023 omeprazole 40 mg oral delayed release capsule Dose : 40 mg = 1 cap(s), Oral, BID Start Date: 01/17/23 Status: Ordered Start: 10-03-2021 End: 04-01-2022 omeprazole 40 mg oral delaye d release capsule Dose : 40 mg = 1 cap(s), Oral, BID, # 60 cap(s), 5 Refill(s), Pharmacy: [facility]/pharmacy #[id number], Nausea Vomiting, 172.7, cm, 08/11/21 10:37:00 EDT, Height, kg, 10/01/21 22:22:00 EST, Dosing Weight Start Date: 10/03/21 Stop Date: 04/01/22 Status: Ordered take 1 capsule by mo ut once daily before breakfast omeprazole (PriLOSEC) [address] capsule Take 40 mg by mouth every morning (before breakfast). Do not crush or chew. Active ondansetron 4 mg disintegrating oral tablet (20 sources) Serotonin-3 Receptor Antagonist Start: 04-23-2024 ondansetron 4 mg ora l tablet, disintegrating Dose : 4 mg = 1 tab(s), Oral, TID, PRN Nausea/Vomiting, 0 Refill(s) Start Date: 04/23/24 Status: Ordered Medication Dispense Status: Completed Total Allowed Fills: 1 Fills Dispensed: 0 Start: 01-27-2024 End: 01-31-2024 ondansetron 4 mg oral tablet , disintegrating Dose : 4 mg = 1 tab(s), Oral, q6h, X 4 day(s), # 16 tab(s), 0 Refill(s), 01/31/24 1:14:00 PM EDT Start Date: 01/27/24 Stop Date: 01/31/24 Status: Ordered Start: 03-15-2023 End: 01-11-2024 take 8 mg by mouth every twelve hours Ondansetron Hcl Active 8 MG PO Q12H January 11, 2024 3:00pm Start: 01-17-2023 ondansetron 8 mg oral tablet, disintegrating Dose : 8 mg = 1 tab(s), Oral, TID, PRN Nausea/Vomiting Start Date: 01/17/23 Status: Ordered Start: 02-21-2022 End: 02-26-2022 ondansetron 4 mg oral tablet , disintegrating Dose : 4 mg = 1 tab(s), Oral, q6h, X 5 day(s), # 20 tab(s), 0 Refill(s), 02/26/22 1:06:00 EDT, Abdominal pain Start Date: 02/21/22 Stop Date: 02/26/22 Status: Ordered Start: 02-10-2022 ondansetron 4 mg oral tablet Dose : 4 mg = 1 tab(s), Oral, q8h, # 30 tab(s), 2 Refill(s), Pharmacy: [facility]/pharmacy #[id number], 172, cm, 01/12/22 11:01:00 EST, Height, kg, 01/12/22 11:01:00 EST, Dosing Weight Start Date: 02/10/22 Status: Ordered Pen needles 5 mm (2 sources) Start: 04-20-2021 Pen needles 5 mm See Instructions, Insulin administration 2 times daily qs for 1 month supply, # 1 EA, 1 Refill(s), [id number], Diabetes mellitus, type II, 175, cm, 04/15/21 5:03:00 EDT, Height, 125, kg, 04/15/21 5:03:00 EDT, Dosing Weight Start Date: 04/20/21 Status: Ordered polyethylene glycol 3350 62011 mg powder for oral solution (1 source) Osmotic Laxative Start: 02-11-2025 End: 02-18-2025 take 17 doses by mouth once daily Miralax Powder Packet Dose : 17 gram(s) =, Oral, qDay, X 7 day(s), # 7 EA, 0 Refill(s), 02/18/25 8:51:00 PM EDT, [id number], 172.2, cm, 02/06/25 4:31:00 EDT, Height, kg, 02/06/25 4:31:00 EDT, Dosing Weight Start Date: 02/11/25 Stop Date: 02/18/25 Status: Ordered Quantity: 7.0 Unit: EA Repeat number: 1 Probiotic (2 sources) Start: 03-13-2024 Probiotic 0 Re fill(s) Start Date: 03/13/24 Status: Ordered propranolol hydrochloride 40 mg oral tablet (20 sources) beta-Adrenergic Camille Start: 10-24-2024 propranolol 40 mg oral tablet Dose : 40 mg = 1 tab(s), Oral, qDay, # 90 tab(s), 3 Refill(s), Pharmacy: [facility]/pharmacy #[id number], 172.7, cm, 10/10/24 7:52:00 EST, Height, kg, 10/10/24 7:52:00 EST, Dosing Weight Start Date: 10/24/24 Status: Ordered Medication Dispense Status: Completed Quantity: 90.0 Unit: tab(s) Total Allowed Fills: 4 Fills Dispensed: 0 Start: 04-15-2024 End: 05-15-2024 propranolol 40 mg oral table t Dose : 40 mg = 1 tab(s), Oral, qDay, # 90 tab(s), 3 Refill(s), Pharmacy: [facility]/pharmacy #[id number], 172, cm, 03/28/24 15:14:00 EDT, Height, kg, 03/28/24 15:14:00 EDT, Dosing Weight Start Date: 04/15/24 Stop Date: 05/15/24 Status: Ordered Start: 01-21-2024 End: 03-12-2024 propranolol 40 mg oral table t Dose : 40 mg = 1 tab(s), Oral, qDay, # 30 tab(s), 0 Refill(s), Pharmacy: [facility]/pharmacy #[id number], 172, cm, 12/19/23 9:44:00 EST, Height, kg, 01/27/24 10:27:00 EDT, Dosing Weight Start Date: 02/11/24 Stop Date: 03/12/24 Status: Ordered Start: 03-15-2023 take 40 mg by mouth once Propr anolol Active 40 MG PO ONCE March 15, 2023 12:00am Start: 01-17-2023 propranolol 40 mg oral tablet Dose : 40 mg = 1 tab(s), Oral, qDay Start Date: 01/17/23 Status: Ordered QUEtiapine 50 mg oral tablet (20 sources) Atypical Antipsychotic Start: 06-17-2025 take 1 tablet by mouth once daily at bedtime QUEtiapine 50 mg oral tablet See Instructions, TAKE 1 TABLET BY MOUTH EVERYDAY AT BEDTIME, # 90 tab(s), 1 Refill(s), Pharmacy: [facility]/pharmacy #[id number], 172.7, cm, 04/27/25 14:09:00 EDT, Height, kg, 04/27/25 14:09:00 EDT, Dosing Weight Start Date: 06/17/25 Status: Ordered Medication Dispense Status: Completed Quantity: 90.0 Unit: tab(s) Total Allowed Fills: 2 Fills Dispensed: 0 Start: 12-18-2024 take 1 tablet by katiana th once daily at bedtime QUEtiapine 50 mg oral tablet See Instructions, TAKE 1 TABLET BY MOUTH EVERYDAY AT BEDTIME, # 90 tab(s), 1 Refill(s), Pharmacy: [facility]/pharmacy #[id number], 172.7, cm, 10/10/24 7:52:00 EST, Height, kg, 10/10/24 7:52:00 EST, Dosing Weight Start Date: 12/18/24 Status: Ordered Quantity: 90.0 Unit: tab(s) Repeat number: 2 Start: 03-24-2024 take 1 tablet by katiana th once daily at bedtime QUEtiapine 50 mg oral tablet See Instructions, TAKE 1 TABLET BY MOUTH EVERYDAY AT BEDTIME, # 90 tab(s), 1 Refill(s), Pharmacy: [facility]/pharmacy #[id number], 172, cm, 03/13/24 14:05:00 EDT, Height, kg, 03/22/24 1:32:00 EDT, Dosing Weight Start Date: 03/24/24 Status: Ordered Start: 01-12-2022 End: 01-11-2024 take 50 mg by mouth at bedtime Quetiapine Active 50 MG PO AT BEDTIME January 11, 2024 3:00pm rosuvastatin calcium 20 mg oral tablet (17 sources) HMG-CoA Reductase Inhibitor Start: 09-08-2025 rosuvastatin 20 mg oral tablet Dose : 20 mg = 1 tab(s), Oral, Daily, # 90 tab(s), 0 Refill(s), Pharmacy: [facility]/pharmacy #[id number], 172.7, cm, 08/26/25 13:13:00 EDT, Height, kg, 08/26/25 13:13:00 EDT, Dosing Weight Start Date: 09/08/25 Status: Ordered Medication Dispense Status: Completed Quantity: 90.0 Unit: tab(s) Total Allowed Fills: 1 Fills Dispensed: 0 Start: 03-17-2025 rosuvastatin 2 0 mg oral tablet Dose : 20 mg = 1 tab(s), Oral, Daily, # 90 tab(s), 1 Refill(s), Pharmacy: [facility]/pharmacy #[id number], 172.7, cm, 03/11/25 11:22:00 EDT, Height, kg, 03/11/25 11:22:00 EDT, Dosing Weight Start Date: 03/17/25 Status: Ordered Medication Dispense Status: Completed Quantity: 90.0 Unit: tab(s) Total Allowed Fills: 2 Fills Dispensed: 0 Start: 03-17-2024 rosuvastatin 2 0 mg oral tablet Dose : 20 mg = 1 tab(s), Oral, Daily, # 90 tab(s), 1 Refill(s), Pharmacy: [facility]/pharmacy #[id number], 172.7, cm, 08/18/24 13:51:00 EDT, Height, kg, 08/18/24 13:51:00 EDT, Dosing Weight Start Date: 08/19/24 Status: Ordered Quantity: 90.0 Unit: tab(s) Repeat number: 2 Senna Leaves (7 sources) Start: 10-10-2024 take 1 dose by mouth once daily Senna See Instructions, Oral QDAY, 0 Refill(s) Start Date: 10/10/24 Status: Ordered Medication Dispense Status: Completed Total Allowed Fills: 1 Fills Dispensed: 0 Start: 10-10-2024 Senna See Inst ructions, Oral QDAY, 0 Refill(s) Start Date: 10/10/24 Status: Ordered Repeat number: 1 spironolactone 50 mg oral tablet (20 sources) Aldosterone Antagonist Start: 06-15-2025 spironolactone 50 mg oral tablet Dose : 50 mg = 1 tab(s), Oral, qDay, # 90 tab(s), 1 Refill(s), Pharmacy: [facility]/pharmacy #[id number], 172.7, cm, 04/27/25 14:09:00 EDT, Height, kg, 04/27/25 14:09:00 EDT, Dosing Weight Start Date: 06/15/25 Status: Ordered Medication Dispense Status: Completed Quantity: 90.0 Unit: tab(s) Total Allowed Fills: 2 Fills Dispensed: 0 Start: 03-15-2023 spironolactone 50 mg oral tablet Dose : 50 mg = 1 tab(s), Oral, qDay, # 90 tab(s), 1 Refill(s), Pharmacy: [facility]/pharmacy #[id number], 172.7, cm, 08/18/24 13:51:00 EDT, Height, kg, 08/18/24 13:51:00 EDT, Dosing Weight Start Date: 08/19/24 Status: Ordered Quantity: 90.0 Unit: tab(s) Repeat number: 2 Start: 01-17-2023 spironolactone 25 mg oral tablet Dose : 25 mg = 1 tab(s), Oral, qDay Start Date: 01/17/23 Status: Ordered Symbicort 80 mcg-4.5 mcg/inh Inhaler (8 sources) Start: 11-28-2023 take 1 dose by inhalation twice daily Symbicort 80 mcg-4.5 mcg/inh Inhaler Dose = 2 puff(s), Inhalation, BID, # 3 EA, 3 Refill(s), Pharmacy: [facility]/pharmacy #[id number], Asthma, 172, cm, 08/08/23 15:51:00 EDT, Height, kg, 08/23/23 16:42:00 EDT, Dosing Weight Start Date: 11/28/23 Status: Ordered Tirzepatide (Mounjaro) 5 mg/0.5 mL pen injector (4 sources) Start: 01-11-2024 Tirzepatide (M ounjaro) 5 mg/0.5 mL pen injector Active 5 MG SC EVERY WEEK January 11, 2024 1:00am Start: 01-11-2024 Tirzepatide (M ounjaro) 5 mg/0.5 mL pen injector Active 5 MG SC EVERY WEEK January 11, 2024 12:00am Tirzepatide (Mounjaro) 7.5 MG/0.5ML solution auto-injector (3 sources) Tirzepatide (Katiana njaro) 7.5 MG/0.5ML solution auto-injector Inject under the skin. Active tiZANidine 4 mg oral tablet (12 sources) Central alpha-2 Adrenergic Agonist Start: 04-29-2025 tiZANidine 4 mg oral tablet Dose : 4 mg = 1 tab(s), Oral, q8h, PRN as needed for muscle spasm, # 90 tab(s), 0 Refill(s), Pharmacy: [facility]/pharmacy #[id number], Lower back pain, 172.7, cm, 09/23/25 11:44:00 EST, Height, kg, 09/23/25 11:44:00 EST, Dosing Weight Start Date: 09/23/25 Status: Ordered Medication Dispense Status: Completed Quantity: 90.0 Unit: tab(s) Total Allowed Fills: 1 Fills Dispensed: 0 Indications: Low back pain, unspecified; Start: 01-22-2025 take 1 tablet by katiana th every eight hours as needed for muscle spasms tiZANidine 4 mg oral tablet 1 tab(s), Oral, q8h, PRN NEEDED FOR MUSCLE SPASMS, # 270 tab(s), 0 Refill(s), Pharmacy: [facility] STORE [id number], 172.7, cm, 12/30/24 13:57:00 EST, Height, kg, 12/30/24 13:57:00 EST, Dosing Weight Start Date: 01/22/25 Status: Ordered Quantity: 270.0 Unit: tab(s) Repeat number: 1 Start: 07-17-2024 End: 10-15-2024 tiZANidine 4 mg oral tablet Dose : 4 mg = 1 tab(s), Oral, q8h, PRN as needed for muscle spasm, # 270 tab(s), 0 Refill(s), [id number], 172.7, cm, 07/03/24 10:05:00 EDT, Height, kg, 07/03/24 10:05:00 EDT, Dosing Weight Start Date: 07/17/24 Stop Date: 10/15/24 Status: Ordered Start: 04-26-2024 tiZANidine 4 m g oral tablet Dose : 4 mg = 1 tab(s), Oral, q8h, PRN as needed for muscle spasm, # 90 tab(s), 0 Refill(s), [id number], 172.7, cm, 05/08/24 9:01:00 EDT, Height, kg, 05/08/24 9:01:00 EDT, Dosing Weight Start Date: 05/24/24 Status: Ordered traZODone hydrochloride 100 mg oral tablet (9 sources) Serotonin Reuptake Inhibitor Start: 03-24-2024 traZODone 100 mg ora l tablet Dose : 100 mg = 1 tab(s), Oral, qHS, # 90 tab(s), 1 Refill(s), Pharmacy: [facility]/pharmacy #[id number], 172, cm, 03/13/24 14:05:00 EDT, Height, kg, 03/22/24 1:32:00 EDT, Dosing Weight Start Date: 03/24/24 Status: Ordered Start: 03-15-2023 take 100 mg by mouth once rico y Trazodone Active 100 MG PO DAILY March 15, 2023 12:00am Start: 01-17-2023 traZODone 100 mg oral tablet Dose : 100 mg = 1 tab(s), Oral, qHS Start Date: 01/17/23 Status: Ordered Start: 08-09-2021 traZODone 100 mg oral tablet Dose : 100 mg = 1 tab(s), Oral, qHS, # 30 tab(s), 11 Refill(s), Pharmacy: [facility]/pharmacy #[id number], 172, cm, 08/08/21 15:43:00 EDT, Height, kg, 08/08/21 15:43:00 EDT, Dosing Weight Start Date: 08/09/21 Status: Ordered vitamin b12 1 mg oral tablet (1 source) Vitamin B12 Start: 10-29-2024 End: 01-27-2025 take 1 tablet by mouth once daily cyanocobalamin (Vitamin B-12) 1000 MCG tablet Indications: Vitamin B12 deficiency Take 1 tablet (1,000 mcg) by mouth daily with supper. 90 tablet 3 10/29/2024 01/27/2025 Active Vitamin D3 125 mcg (5000 intl units) oral capsule (2 sources) Start: 01-17-2023 Vitamin D3 125 mcg (5000 intl units) oral capsule Dose : 125 mcg = 1 cap(s), Oral, qDay, with food Start Date: 01/17/23 Status: Ordered Vitamin D3 250 mcg (10,000 intl units) oral capsule (12 sources) Start: 06-18-2024 Vitamin D3 250 mcg (10,000 intl units) oral capsule Dose : 250 mcg = 1 cap(s), Oral, Every other day, 0 Refill(s) Start Date: 06/18/24 Status: Ordered Medication Dispense Status: Completed Total Allowed Fills: 1 Fills Dispensed: 0 Start: 06-18-2024 Vitamin D3 250 mcg (10,000 intl units) oral capsule Dose : 250 mcg = 1 cap(s), Oral, Every other day, 0 Refill(s) Start Date: 06/18/24 Status: Ordered Repeat number: 1 Start: 06-18-2024 Vitamin D3 250 mcg (10,000 intl units) oral capsule Dose : 250 mcg = 1 cap(s), Oral, Every other day, 0 Refill(s) Start Date: 06/18/24 Status: Ordered Start: 03-07-2024 Vitamin D3 250 mcg (10,000 intl units) oral capsule Dose : 250 mcg = 1 cap(s), Oral, Every other day, 0 Refill(s) Start Date: 03/07/24 Status: Ordered vitamin e 100 unt oral capsule (3 sources) Start: 06-18-2024 vitamin E 100 intl units oral capsule Dose : 100 International_Unit = 1 cap(s), Oral, BID, 0 Refill(s) Start Date: 06/18/24 Status: Ordered vitamin E 400 intl units oral capsule (2 sources) Start: 03-07-2024 vitamin E 400 intl units oral capsule Dose : 400 International_Unit = 1 cap(s), Oral, BID, 0 Refill(s) Start Date: 03/07/24 Status: Ordered Completed/Discontinued Medications Medication Drug Class(es) Dates Sig (Normalized) Sig (Original) dicyclomine hydrochloride 20 mg oral tablet (6 sources) Anticholinergic Start: 03-15-2023 End: 01-11-2024 take 20 mg by mouth three times daily Dicyclomine Discontinued 20 MG PO THREE TIMES A DAY March 15, 2023 12:00am January 11, 2024 2:59pm Start: 01-17-2023 dicyclomine 20 mg oral tablet Dose : 20 mg = 1 tab(s), Oral, TID, PRN abdominal discomfort Start Date: 01/17/23 Status: Ordered Start: 02-21-2022 End: 02-28-2022 take 1 tablet by mouth three times daily Bentyl use dicyclomine Dose : 10 mg =, Oral, TID, # 15 tab(s), 0 Refill(s), Abdominal pain Start Date: 02/21/22 Stop Date: 02/28/22 Status: Ordered 0.5 ml dulaglutide 3 mg/ml auto-injector (7 sources) GLP-1 Receptor Agonist Start: 03-15-2023 End: 01-11-2024 Dulaglutide (Trulicity) 1.5 mg/0.5 mL pen injector Discontinued 1.5 MG SC EVERY WEEK March 15, 2023 12:00am January 11, 2024 2:59pm Start: 01-17-2023 Trulicity Pen 1.5 mg/0.5 mL subcutaneous solution Dose : 1.5 mg = 0.5 mL, Subcutaneous, Sunday, 0.5 mL/Pen Start Date: 01/17/23 Status: Ordered Start: 01-21-2022 End: 01-16-2023 inject 0.5 mL by subcutaneous injection every week Trulicity Pen 1.5 mg/0.5 mL subcutaneous solution Dose : 1.5 mg = 0.5 mL, Subcutaneous, qWeek, # 6.5 mL, 3 Refill(s), 0.5 mL/Pen, Pharmacy: [facility]/pharmacy #[id number], 172, cm, 01/12/22 11:01:00 EST, Height, kg, 01/12/22 11:01:00 EST, Dosing Weight Start Date: 01/21/22 Stop Date: 01/16/23 Status: Ordered fluconazole 150 mg oral tablet (2 sources) Azole Antifungal Start: 11-25-2021 End: 11-28-2021 Diflucan 150 mg oral tablet See Instructions, take first tab on day 1 and then take 2nd tab 72 hours later., # 2 EA, 0 Refill(s), Pharmacy: [facility]/pharmacy #[id number], Vaginal yeast infection, 172, cm, 11/23/21 10:38:00 EST, Height, 131.8, kg, 11/23/21 10:38:00 EST, Dosing Weight Start Date: 11/25/21 Stop Date: 11/28/21 Status: Ordered gabapentin 300 mg oral capsule (4 sources) Anti-epileptic Agent Start: 05-12-2024 End: 07-05-2024 gabapentin 300 mg oral capsule Dose : 300 mg = 1 cap(s), Oral, TID, # 90 cap(s), 0 Refill(s), Pharmacy: [facility]/pharmacy #[id number], Lumbar foraminal stenosis Encounter for surgical aftercare following surgery of nervous system, 172.7, cm, 06/05/24 8:54:00 EDT, Height, 110.45, kg, 06/05/24 8:54:00 EDT, Dosing Weight Start Date: 06/05/24 Stop Date: 07/05/24 Status: Ordered pregabalin 100 mg oral capsule (16 sources) Start: 08-11-2025 End: 09-10-2025 pregabalin 100 mg oral capsule Dose : 100 mg = 1 cap(s), Oral, TID, # 90 cap(s), 0 Refill(s), [id number], Neuropathic pain, 172.7, cm, 04/27/25 14:09:00 EDT, Height, 119.3, kg, 04/27/25 14:09:00 EDT, Dosing Weight Start Date: 08/11/25 Stop Date: 09/10/25 Status: Ordered Medication Dispense Status: Completed Quantity: 90.0 Unit: cap(s) Total Allowed Fills: 1 Fills Dispensed: 0 Indications: Neuralgia and neuritis, unspecified; Start: 03-16-2025 End: 06-14-2025 pregabalin 100 mg oral capsu le Dose : 100 mg = 1 cap(s), Oral, TID, # 90 cap(s), 2 Refill(s), [id number], Neuropathic pain, 172.7, cm, 03/11/25 11:22:00 EDT, Height, 118.2, kg, 03/11/25 11:22:00 EDT, Dosing Weight Start Date: 03/16/25 Stop Date: 06/14/25 Status: Ordered Medication Dispense Status: Completed Quantity: 90.0 Unit: cap(s) Total Allowed Fills: 3 Fills Dispensed: 0 Indications: Neuralgia and neuritis, unspecified; Start: 02-04-2025 End: 03-06-2025 pregabalin 100 mg oral capsu le Dose : 100 mg = 1 cap(s), Oral, TID, # 90 cap(s), 0 Refill(s), [id number], Neuropathic pain, 175.3, cm, 02/04/25 7:32:00 EDT, Height, 113.6, kg, 02/04/25 7:32:00 EDT, Dosing Weight Start Date: 02/04/25 Stop Date: 03/06/25 Status: Ordered Quantity: 90.0 Unit: cap(s) Repeat number: 1 Indication: Neuralgia and neuritis, unspecified Start: 07-11-2024 End: 02-24-2025 Lyrica 50 mg oral capsule Do se : 50 mg = 1 cap(s), Oral, TID, # 90 cap(s), 3 Refill(s), Pharmacy: [facility]/pharmacy #[id number], Neuropathic pain, 172.7, cm, 10/10/24 7:52:00 EST, Height, 115.9, kg, 10/10/24 7:52:00 EST, Dosing Weight Start Date: 10/27/24 Stop Date: 02/24/25 Status: Ordered Quantity: 90.0 Unit: cap(s) Repeat number: 4 Indication: Neuralgia and neuritis, unspecified Problems Active Problems Problem Classification Problem Date Documented Da te Episodic/Chronic Abdominal pain (14 sources) Abdominal pain; Translations: [Unspecified abdominal pain] Onset: 3 02-21-2022 Episodic Acquired foot deformities (15 sources) Foot-drop; Translations: [Foot drop, right foot] Episodic Allergic reactions (20 sources) Environmental allergy; Translations: [Allergy to food] Onset: 5 02-12-2020 Episodic Anxiety disorders (20 sources) Anxiety; Translations: [Claustrophobia] Onset: 5 03-04-2018 Chronic Comment on above: no treatment Asthma (20 sources) Asthma; Translations: [Unspecified asthma, uncomplicated] Onset: 4 04-29-2020 Chronic Chronic kidney disease (18 sources) Chronic kidney disease stage 3; Translations: [Chronic kidney disease, stage 3 unspecified] 10-04-2022 Chronic Chronic kidney disease (1 source) Chronic kidney disease; Translations: [Chronic kidney disease, stage 3 unspecified] Onset: 5 Diabetes mellitus with complications (2 sources) Chronic kidney disease due to type 2 diabetes mellitus; Translations: [Type 2 diabetes mellitus with diabetic chronic kidney disease] Onset: 5 Chronic Diabetes mellitus without complication (20 sources) Type 2 diabetes mellitus; Translations: [Type 2 diabetes mellitus without complication] Onset: 3 12-25-2018 Chronic Disorders of lipid metabolism (20 sources) Hypercholesterolemia; Translations: [Hypertriglyceridemia] 02-16-2016 Chronic Comment on above: no meds yet Essential hypertension (18 sources) Hypertensive disorder; Translations: [Essential hypertension] 04-29-2020 Chronic Comment on above: 08/28/[address] EF 64%, no evidence of infarction. not being treated ye t Genitourinary symptoms and ill-defined conditions (1 source) Unspecified urinary incontinence; Translations: [Unspecified urinary incontinence] Chronic Headache; including migraine (17 sources) Migraine; Translations: [Migraine, unspecified, not intractable, without status migrainosus] Onset: 3 Chronic Hypertension with complications and secondary hypertension (3 sources) Chronic kidney disease due to hypertension; Translations: [Hypertensive chronic kidney disease with stage 1 through stage 4 chronic kidney disease, or unspecified chronic kidney disease] Onset: 5 Chronic Immunizations and screening for infectious disease (1 source) Suspected disease caused by 2019-nCoV; Translations: [Suspected COVID-19 virus infection] Episodic Joint disorders and dislocations; trauma-related (1 source) Unspecified dislocation of left index finger, initial encounter; Translations: [Unspecified dislocation of left index finger, initial encounter] Onset: 5 Episodic Malaise and fatigue (20 sources) Asthenia; Translations: [Weakness] Onset: 3 Episodic Mood disorders (18 sources) Recurrent major depressive episodes, moderate 11-06-2019 Chronic Nausea and vomiting (18 sources) Nausea and vomiting; Translations: [Nausea with vomiting, unspecified] Onset: 5 03-29-2022 Episodic Noninfectious gastroenteritis (2 sources) Eosinophilic gastroenteritis; 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 Nutritional deficiencies (18 sources) Vitamin D deficiency 08-01-2019 Chronic Nutritional deficiencies (1 source) Cobalamin deficiency; Translations: [Deficiency of other specified B group vitamins] 10-29-2024 Episodic Other aftercare (11 sources) Surgical follow-up 05-08-2024 Episodic Other and unspecified benign neoplasm (14 sources) Corticotroph adenoma 03-13-2024 Episodic Other circulatory disease (1 source) Elevated blood pressure; Translations: [Elevated blood pressure reading with diagnosis of hypertension] Episodic Other circulatory disease (15 sources) Orthostatic hypotension 05-04-2023 Episodic Other connective tissue disease (18 sources) Fibromyalgia 04-06-2021 Episodic Other connective tissue disease (19 sources) Spasm; Translations: [Other muscle spasm] Onset: 4 04-29-2020 Episodic Other connective tissue disease (4 sources) Other symptoms and signs involving the musculoskeletal system; Translations: [Other musculoskeletal symptoms referable to limbs] Onset: 4 10-23-2024 Episodic Other connective tissue disease (1 source) Neuralgia; Translations: [Neuralgia and neuritis, unspecified] Onset: 5 Episodic Other connective tissue disease (1 source) Muscle pain; Translations: [Myalgia, other site] Onset: 5 Episodic Other connective tissue disease (1 source) Pain in right lower limb; Translations: [Pain in right leg] Episodic Other connective tissue disease (5 sources) Swelling of lower limb 03-23-2025 Episodic Other disorders of stomach and duodenum (18 sources) Gastrointestinal tract finding 01-19-2021 Episodic Other endocrine disorders (18 sources) Polycystic ovaries 02-16-2016 Chronic Other gastrointestinal disorders (14 sources) Celiac disease 03-13-2024 Chronic Other gastrointestinal disorders (2 sources) Constipation, unspecified; Translations: [Constipation, unspecified] Onset: 4 Episodic Other lower respiratory disease (18 sources) Cough 01-06-2019 Episodic Other nervous system disorders (4 sources) Right common peroneal neuropathy; Translations: [Lesion of lateral popliteal nerve, right lower limb] 10-23-2024 Chronic Other nervous system disorders (4 sources) Neuropathy; Translations: [Hereditary and idiopathic neuropathy, unspecified] 10-23-2024 Chronic Other nervous system disorders (2 sources) Lesion of lateral popliteal nerve, right lower limb; Translations: [Lesion of lateral popliteal nerve, right lower limb] Onset: 4 Chronic Other nervous system disorders (2 sources) Hereditary and idiopathic neuropathy, unspecified; Translations: [Hereditary and idiopathic neuropathy, unspecified] Onset: 4 Chronic Other nervous system disorders (2 sources) Sciatic nerve lesion; Translations: [Lesion of sciatic nerve, right lower limb] Onset: 5 Chronic Other nervous system disorders (2 sources) Lesion of sciatic nerve, right lower limb; Translations: [Lesion of sciatic nerve, right lower limb] Onset: 5 Chronic Other nervous system disorders (1 source) Postoperative pain ; Translations: [Other acute postprocedural pain] Onset: 4 Episodic Other nervous system disorders (9 sources) Paresthesia 06-30-2024 Episodic Other nervous system disorders (6 sources) Paresthesia of hand ; Translations: [Anesthesia of skin] 10-23-2024 Episodic Other nervous system disorders (4 sources) Numbness of foot ; Translations: [Anesthesia of skin] 10-23-2024 Episodic Other nervous system disorders (2 sources) Anesthesia of skin; Translations: [Anesthesia of skin] Onset: 4 Episodic Other nervous system disorders (2 sources) Paresthesia of skin; Translations: [Paresthesia of skin] Onset: 4 Episodic Other nervous system disorders (7 sources) Disorder of nervous system 10-12-2024 Episodic Other non-traumatic joint disorders (1 source) Pain in right hip joint; Translations: [Pain in right hip] Episodic Other nutritional; endocrine; and metabolic disorders (18 sources) Metabolic syndrome X 08-01-2019 Chronic Other nutritional; endocrine; and metabolic disorders (18 sources) Morbid obesity 04-22-2020 Chronic Other skin disorders (18 sources) Hirsutism 01-12-2022 Episodic Ovarian cyst (1 source) Cyst of ovary; Translations: [Unspecified ovarian cyst, unspecified side] Onset: 3 Episodic Paralysis (16 sources) Left hemiparesis 01-19-2023 Chronic Personality disorders (18 sources) Personality disorder 11-06-2019 Chronic Residual codes; unclassified (18 sources) Sleep apnea 02-16-2016 Chronic Comment on above: refuses cpap Residual codes; unclassified (4 sources) Unspecified symptoms and signs involving cognitive functions and awareness; Translations: [Other signs and symptoms involving cognition] Onset: 4 10-23-2024 Episodic Residual codes; unclassified (1 source) Pain; Translations: [Pain, unspecified] Onset: 5 Episodic Spondylosis; intervertebral disc disorders; other back problems (2 sources) Degeneration of lumbar intervertebral disc; Translations: [Other intervertebral disc degeneration, lumbar region] Onset: 4 Chronic Syncope (4 sources) Vasovagal syncope; Translations: [Syncope and collapse] Onset: 5 08-22-2025 Episodic Unclassified (18 sources) Eye glasses, device (physical object) 02-16-2016 Unclassified (4 sources) Weakness of both legs 10-23-2024 Unclassified (3 sources) Dislocation of joint of left index finger 08-22-2025 Past or Other Problems Problem Classification Problem Date Documented Date Episodic/Chronic Acute and unspecified renal failure (2 sources) Acute renal failure syndrome; Translations: [Acute kidney failure, unspecified] Onset: 02-05-2025 Episodic Esophageal disorders (1 source) Esophagitis; Translations: [Esophagitis] Onset: 12-21-2024 Episodic Fever of unknown origin (2 sources) Fever, unspecified; Translations: [Fever, unspecified] Onset: 03-28-2024 Episodic Other connective tissue disease (1 source) Neuralgia and neuritis, unspecified; Translations: [Neuralgia and neuritis, unspecified] Onset: 02-05-2025 Episodic Other connective tissue disease (1 source) Myalgia, other site; Translations: [Myalgia, other site] Onset: 02-05-2025 Episodic Other connective tissue disease (1 source) Pain in right leg; Translations: [Pain in right leg] Onset: 02-05-2025 Episodic Other nervous system disorders (2 sources) Other disorders of nervous system; Translations: [Other disorders of nervous system] Onset: 03-23-2025 Episodic Other non-traumatic joint disorders (1 source) Pain in right hip; Translations: [Pain in right hip] Onset: 02-05-2025 Episodic Other screening for suspected conditions (not mental disorders or infectious disease) (5 sources) Raised TSH level; Translations: [Other specified abnormal findings of blood chemistry] Onset: 03-23-2025 04-27-2025 Episodic Other upper respiratory infections (2 sources) Acute pharyngitis, unspecified; Translations: [Acute pharyngitis, unspecified] Onset: 03-28-2024 Episodic Residual codes; unclassified (2 sources) Other general symptoms and signs; Translations: [Other general symptoms and signs] Onset: 03-11-2025 Episodic Residual codes; unclassified (1 source) Pain, unspecified; Translations: [Pain, unspecified] Onset: 02-05-2025 Episodic Spondylosis; intervertebral disc disorders; other back problems (5 sources) Spinal stenosis, thoracolumbar region; Translations: [Spinal stenosis of thoracolumbar region] Onset: 02-05-2025 Episodic Unclassified (1 source) SCREENING Onset: 01-23-2019 Unclassified (2 sources) Cognitive complaints 10-23-2024 Results Test Name Value Interpretation Reference Range Facility Gastroenterology Visit Repor ton 09-21-2025 Gastroenterology Visit Report [facility] [address] [place] [address] OFFICE VISIT Date of Service: 09/21/25 MR#: [id number] Acct: [id number] Name: APRIL ROSA Rep #: [id number] : 1975 Provider: MARY sterling Age/Sex: 50/F Location: [email or web address] Status: Signed Intake Vital Signs 12/30/24 15:50 09/21/25 08:13 Height 5 ft 8 in 5 ft 8 in Weight: 268 lb 2 oz 262 lb 6 oz BMI 40.7 39.9 BP 121/85 H 124/84 H Respiration 16 6 L Pulse 91 102 H Temp 97.5 F L Temp Source Temporal Pulse Oximetry (%) 96 96 Oxygen Delivery Method room air room air Intake Visit Reasons: F/U B12 deficiency Chief Complaint: constipation, N/V [employer] Required: No Accompanied by: Self Is patient in pain?: No Allergies amlodipine Allergy (Intermediate, Verified 09/21/25 08:16) Other lisinopril Allergy (Intermediate, Verified 09/21/25 08:16) Other metoclopramide (From Reglan) Allergy (Intermediate, Verified 09/21/25 08:16) Other orphenadrine (From Norflex) Allergy (Intermediate, Verified 09/21/25 08:16) Other pioglitazone (From Actos) Allergy (Intermediate, Verified 09/21/25 08:16) Other prochlorperazine (From Compazine) Allergy (Intermediate, Verified 09/21/25 08:16) Other rizatriptan (From Maxalt) Allergy (Intermediate, Verified 09/21/25 08:16) Other sumatriptan (From Imitrex) Allergy (Intermediate, Verified 09/21/25 08:16) Other Medications ???Medication ???Instructions ???Recorded ???Confirmed ???Type albuterol sulfate 90 mcg/actuation 2 puff inhalation Q6H PRN 09/21/25 History aerosol inhaler shortness of breath or wheezing aspirin 81 mg tablet,delayed 81 mg PO DAILY 03/15/23 09/21/25 H istory release bupropion HCl 150 mg 24 hr tablet, 150 mg PO QAM 03/15/23 09/21/25 History extended release cetirizine 10 mg tablet 10 mg PO DAILY PRN allergy symptom s 03/15/23 09/21/25 History clonidine HCl 0.3 mg tablet 0.3 mg PO BID 03/15/23 09/21/25 Hi story levalbuterol HCl 0.63 mg/3 mL 0.63 mg inhalation ONCE PRN 09/21/25 History solution for nebulization shortness of breath or wheezing propranolol 40 mg tablet 40 mg PO ONCE 03/15/23 09/21/25 Hi story spironolactone 50 mg tablet 50 mg PO DAILY 03/15/23 09/21/25 H istory atorvastatin 10 mg tablet 10 mg PO DAILY 01/11/24 09/21/25 H istory metformin 500 mg tablet 1,500 mg PO DAILY 01/11/24 5 History montelukast 10 mg tablet 10 mg PO DAILY 01/11/24 09/21/25 H istory quetiapine 50 mg tablet 50 mg PO QHS 01/11/24 09/21/25 His tory B.coagulan,subtilis 1 bill. tab PO 12/30/24 09/21/25 History cell-inulin 1 gram-vit C 15 mg chew tablet (Culturelle Probiotic-Prebiotic) pregabalin 50 mg capsule (Lyrica) 50 mg PO TID 12/30/24 09/21/25 Hi story albuterol sulfate 1.25 mg/3 mL 1.25 mg inhalation Q4H PRN 5 09/21/25 History solution for nebulization lubiprostone 24 mcg capsule 24 mcg PO BID #60 caps 09/21/25 Rx (Amitiza) multivitamin 1 tab PO QDAY 09/21/25 09/21/25 Hi story omeprazole 40 mg capsule,delayed 40 mg PO BID 09/21/25 09/21/25 His tory release ondansetron 8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 By: #### D HEAS, LIPID, FT3, GFR, SANDEEP, TSH, CMP, [id number], A1C, VIDH, FT4 #### [place] [id number] [place] [address] TSHon 04-27-2025 TSH 1.485 mIU/mL Normal 0.550-4.780 [facility] Comment on above: Performed By: #### D HEAS, LIPID, FT3, GFR, SANDEEP, TSH, CMP, [id number], A1C, VIDH, FT4 #### [address] [address] .GFRon 04-24-2025 Estimated Glomerular Filtration Rate 64 ml/min/1.73sqm Normal [facility] Comment on above: Result Comment: Stages of Chronic Kidney Disease (CKD) Stage Description eGFR(ml/min/1.73 sq.m.) CKD 1 Normal kidney function or >=90 normal kindney function with possible kidney damage (ex. Proteinuria) CKD 2 Kidney damage with mild loss 60-89 of kidney function CKD 3a Mild to moderate loss of kidney 45-59 function CKD 3b Moderate to severe loss of 30-44 of kindey function CKD 4 Severe loss of kidney function 15-29 CKD 5 Kidney failure <15 Note: (go live 2024) the eGFR calculation was updated to the 2020 CKD-EPI creatinine equation without a race factor to calculate the eGFR results. Performed By: #### D HEAS, LIPID, FT3, GFR, SANDEEP, TSH, CMP, [id number], A1C, VIDH, FT4 #### [address] [address] A1Con 04-24-2025 Glucose [Mass/Vol] 128 mg/dL Normal [facility] Comment on above: Result Comment: Prema mated Average Glucose calculated by equation ((28.7xA1C)-46.7) Estimated average glucose (eAG) is a calculated value from Hemoglobin A1C and is bank representative of the average blood glucose level in the last 2-3 month period. Normal range: less than 114 mg/dL Performed By: #### D HEAS, LIPID, FT3, GFR, SANDEEP, TSH, CMP, [id number], A1C, VIDH, FT4 ####[address] [address] HbA1c (Bld) [Mass fraction] 6.1 % High 4.0-6.0 [facility] Comment on above: Performed By: #### D HEAS, LIPID, FT3, GFR, SANDEEP, TSH, CMP, 759641, A1C, VIDH, FT4 ####[address] [address] CMPon 04-24-2025 Albumin Level 3.7 G/dL Normal 3.2-4.8 [facility] Comment on above: Performed By: #### D HEAS, LIPID, FT3, GFR, SANDEEP, TSH, CMP, 766120, A1C, VIDH, FT4 #### [place] [id number] Albumin/Globulin [Mass ratio] 1.2 {ratio} Normal 0.9-1.6 [facility] Comment on above: Performed By: #### D HEAS, LIPID, FT3, GFR, SANDEEP, TSH, CMP, 259156, A1C, VIDH, FT4 #### [address] [address] ALP [Catalytic activity/Vol] 114 U/L Normal 38-126 [facility] Comment on above: Performed By: #### D HEAS, LIPID, FT3, GFR, SANDEEP, TSH, CMP, [id number], A1C, VIDH, FT4 #### [address] [address] ALT [Catalytic activity/Vol] 20 U/L Normal 10-49 [facility] Comment on above: Performed By: #### D HEAS, LIPID, FT3, GFR, SANDEEP, TSH, CMP, [id number], A1C, VIDH, FT4 #### [address] [address] AST [Catalytic activity/Vol] 22 U/L Normal 8-34 [facility] Comment on above: Performed By: #### D HEAS, LIPID, FT3, GFR, SANDEEP, TSH, CMP, 084631, A1C, VIDH, FT4 #### [address] [address] Bili Total 0.30 mg/dL Normal 0.20-1.20 [facility] Comment on above: Result Comment: Use of this assay is not recommended for patients undergoing treatment with eltrombopag due to the potential for falsely elevated results. Performed By: #### D HEAS, LIPID, FT3, GFR, SANDEEP, TSH, CMP, [id number], A1C, VIDH, FT4 #### [address] [address] BUN/Creatinine Ratio 11.2 ratio Normal 10.0-22.0 [facility] Comment on above: Performed By: #### D HEAS, LIPID, FT3, GFR, SANDEEP, TSH, CMP, 413102, A1C, VIDH, FT4 #### [address] [address] Calcium [Mass/Vol] 9.1 mg/dL Normal 8.7-10.4 [facility] Comment on above: Performed By: #### D HEAS, LIPID, FT3, GFR, SANDEEP, TSH, CMP, 605702, A1C, VIDH, FT4 #### [address] [address] Chloride [Moles/Vol] 106 mmol/L Normal 98-110 [facility] Comment on above: Performed By: #### D HEAS, LIPID, FT3, GFR, SANDEEP, TSH, CMP, 587201, A1C, VIDH, FT4 #### [address] [address] CO2 [Moles/Vol] 30 mmol/L Normal 22-32 [facility] Comment on above: Performed By: #### D HEAS, LIPID, FT3, GFR, SANDEEP, TSH, CMP, 487508, A1C, VIDH, FT4 #### [address] [address] Creatinine [Mass/Vol] 1.07 mg/dL Normal 0.50-1.20 [facility] Comment on above: Result Comment: Test ing performed on SED Web analyzer using enzymatic creatinine methodology. Performed By: #### D HEAS, LIPID, FT3, GFR, SANDEEP, TSH, CMP, 984127, A1C, VIDH, FT4 #### [address] [address] Electrolyte Balance 7.0 mEq/L Normal 4.0-15.0 [facility] Comment on above: Performed By: #### D HEAS, LIPID, FT3, GFR, SANDEEP, TSH, CMP, 561332, A1C, VIDH, FT4 #### [address] [address] Globulin 3.2 G/dL Normal 2.5-4.2 [facility] Comment on above: Performed By: #### D HEAS, LIPID, FT3, GFR, SANDEEP, TSH, CMP, 905100, A1C, VIDH, FT4 #### [address] [address] Glucose [Mass/Vol] 122 mg/dL High 70-110 [facility] Comment on above: Performed By: #### D HEAS, LIPID, FT3, GFR, SANDEEP, TSH, CMP, 195740, A1C, VIDH, FT4 #### [address] [address] Potassium [Moles/Vol] 3.8 mmol/L Normal 3.5-5.0 [facility] Comment on above: Performed By: #### D HEAS, LIPID, FT3, GFR, SANDEEP, TSH, CMP, 531887, A1C, VIDH, FT4 #### [address] [address] Sodium [Moles/Vol] 143 mmol/L Normal 136-145 [facility] Comment on above: Performed By: #### D HEAS, LIPID, FT3, GFR, SANDEEP, TSH, CMP, 014022, A1C, VIDH, FT4 #### [address] [address] Total Protein 6.9 G/dL Normal 5.7-8.2 [facility] Comment on above: Performed By: #### D HEAS, LIPID, FT3, GFR, SANDEEP, TSH, CMP, 030707, A1C, VIDH, FT4 #### [address] [address] Urea nitrogen [Mass/Vol] 12.0 mg/dL Normal 8.0-22.0 [facility] Comment on above: Performed By: #### D HEAS, LIPID, FT3, GFR, SANDEEP, TSH, CMP, 673442, A1C, VIDH, FT4 #### [place] [address] CORTon 04-24-2025 Cortisol Level 17.4 mcg/dL Normal [facility] Comment on above: Result Comment: Sandeep isol AM Reference Range 6.5-26.0 mcg/dL Cortisol PM Reference Range 3.5-15.0 mcg/dL Performed By: #### D HEAS, LIPID, FT3, GFR, SANDEEP, TSH, CMP, 508676, A1C, VIDH, FT4 ####[place] [address] DHEASon 04-24-2025 DHEA-SO4 116.25 mcg/dL Normal 25.90-460.20 [facility] Comment on above: Result Comment: No te - New Reference Range in effect 20 Performed By: #### D HEAS, LIPID, FT3, GFR, SANDEEP, TSH, CMP, [id number], A1C, VIDH, FT4 #### [place] [address] FT3on 04-24-2025 Free T3 [Mass/Vol] 2.83 pg/mL Normal 2.30-4.20 [facility] Comment on above: Performed By: #### D HEAS, LIPID, FT3, GFR, SANDEEP, TSH, CMP, 125745, A1C, VIDH, FT4 #### [place] [address] FT4on 04-24-2025 Free T4 [Mass/Vol] 1.07 ng/dL Normal 0.89-1.76 [facility] Comment on above: Result Comment: No te - New Reference Range in effect 20 Performed By: #### D HEAS, LIPID, FT3, GFR, SANDEEP, TSH, CMP, 450740, A1C, VIDH, FT4 #### [address] [place], [place] [address] LABORATORYOrdered By: SYSTEM SYSTEM on 04-24-2025 25-hydroxyvitamin D3 [Mass/Vol] 56.6 ng/mL Invalid Interpretation Code ADM SS Comment on above: Interpretive Data: I nterpretive Values Based on Total 25(OH)D: Severe Deficiency <20 ng/mL Mild to Moderate Deficiency 20-30 ng/mL Optimum Levels 30-100 ng/mL Toxicity Possible >100 ng/mL Albumin BCP dye [Mass/Vol] 3.7 G/dL Normal 3 .2 - 4.8 G/dL ADM SS Albumin/Globulin [Mass ratio] 1.2 {ratio} Normal 0.9 - 1.6 ratio ADM SS ALP [Catalytic activity/Vol] 114 U/L Normal 38 - 126 U/L ADM SS ALT No additional P-5'-P [Catalytic activity/Vol] 20 U/L Normal 10 - 49 U/L ADM SS AST [Catalytic activity/Vol] 22 U/L Normal 8 - 34 U/L ADM SS Bilirubin [Mass/Vol] 0.30 mg/dL Normal 0.20 - 1.20 mg/dL ADM SS Comment on above: Interpretive Data: U se of this assay is not recommended for patients undergoing treatment with eltrombopag due to the potential for falsely elevated results. Calcium [Mass/Vol] 9.1 mg/dL Normal 8.7 - 10. 4 mg/dL ADM SS Chloride [Moles/Vol] 106 mmol/L Normal 98 - 11 0 mEq/L ADM SS CO2 [Moles/Vol] 30 mmol/L Normal 22 - 32 mEq/L ADM SS Cortisol [Mass/Vol] 17.4 ug/dL Invalid Interpretation Code ADM SS Comment on above: Interpretive Data: C ortisol AM Reference Range 6.5-26.0 mcg/dL Cortisol PM Reference Range 3.5-15.0 mcg/dL Creatinine [Mass/Vol] 1.07 mg/dL Normal 0.50 - 1.20 mg/dL ADM SS Comment on above: Interpretive Data: T esting performed on SED Web analyzer using enzymatic creatinine methodology. DHEA-S [Mass/Vol] 116.25 ug/dL Normal 25.90 - 460.20 mcg/dL ADM SS Comment on above: Interpretive Data: * *Note - New Reference Range in effect 20 Electrolyte Balance 7.0 mEq/L Normal 4.0 - 15 .0 mEq/L ADM SS Estimated Glomerular Filtration Rate 64 ml/min/1.73sqm Invalid Interpretation Code Chemistry S Comment on above: Interpretive Data: Stages of Chronic Kidney Disease (CKD) Stage Description eGFR(ml/min/1.73 sq.m.) CKD 1 Normal kidney function or >=90 normal kindney function with possible kidney damage (ex. Proteinuria) CKD 2 Kidney damage with mild loss 60-89 of kidney function CKD 3a Mild to moderate loss of kidney 45-59 function CKD 3b Moderate to severe loss of 30-44 of kindey function CKD 4 Severe loss of kidney function 15-29 CKD 5 Kidney failure <15 Note: (go live 2024) the eGFR calculation was updated to the 2020 CKD-EPI creatinine equation without a race factor to calculate the eGFR results. Free T3 [Mass/Vol] 2.83 pg/mL Normal 2.30 - 4. 20 pg/mL ADM SS Free T4 [Mass/Vol] 1.07 ng/dL Normal 0.89 - 1. 76 ng/dL ADM SS Comment on above: Interpretive Data: * *Note - New Reference Range in effect 20 Globulin 3.2 G/dL Normal 2.5 - 4.2 G/dL ADM SS Glucose [Mass/Vol] 128 mg/dL Invalid Interpretation Code Auto Chem SS Comment on above: Interpretive Data: E stimated average glucose (eAG) is a calculated value from Hemoglobin A1C and is bank representative of the average blood glucose level in the last 2-3 month period. Normal range: less than 114 mg/dL Glucose [Mass/Vol] 122 mg/dL High 70 - 110 mg/dL ADM SS HbA1c (Bld) [Mass fraction] 6.1 % High 4.0 - 6.0 % Auto Chem SS Potassium [Moles/Vol] 3.8 mmol/L Normal 3.5 - 5.0 mEq/L ADM SS Protein [Mass/Vol] 6.9 G/dL Normal 5.7 - 8.2 G/dL ADM SS Sodium [Moles/Vol] 143 mmol/L Normal 136 - 145 mEq/L ADM SS TSH Qn 4.180 mIU/mL Normal 0.550 - 4.780 mIU/mL ADM SS Urea nitrogen [Mass/Vol] 12.0 mg/dL Normal 8.0 - 22.0 mg/dL ADM SS Urea nitrogen/Creatinine [Mass ratio] 11.2 ratio Normal 10.0 - 22.0 ratio ADM SS LABORATORYOrdered By: Joey Su on 04-24-2025 Cholesterol [Mass/Vol] 106 mg/dL Normal 50 - 199 mg/dL ADM SS Comment on above: Interpretive Data: C holesterol Reference Interval: Less than 200 Desirable 200-239 Borderline high risk 240 and above High risk Cholesterol in HDL [Mass/Vol] 43 mg/dL Normal 40 - 59 mg/dL ADM SS Cholesterol in LDL [Mass/Vol] 11 mg/dL Normal 0 - 129 mg/dL ADM SS Triglyceride [Mass/Vol] 258 mg/dL High 3 - 149 mg/dL ADM SS LABORATORYOrdered By: Nathalia Nelson on 04-24-2025 Creatinine (U) [Mass/Vol] 225.8 mg/dL Invali d Interpretation Code ADM SS Protein (U) [Mass/Vol] 16.1 mg/L Invalid Interpretation Code ADM SS U Ratio Alb/Cre 7.1 mg/G Normal 0.0 - 30.0 mg/G Chemistry S LIPIDon 04-24-2025 Cholesterol [Mass/Vol] 106 mg/dL Normal 50-199 [facility] Comment on above: Result Comment: Chol esterol Reference Interval: Less than 200 Desirable 200-239 Borderline high risk 240 and above High risk Performed By: #### D HEAS, LIPID, FT3, GFR, SANDEEP, TSH, CMP, [id number], A1C, VIDH, FT4 ####[address] [address] Cholesterol in HDL [Mass/Vol] 43 mg/dL Normal 40-59 [facility] Comment on above: Performed By: #### D HEAS, LIPID, FT3, GFR, SANDEEP, TSH, CMP, 697353, A1C, VIDH, FT4 ####[place] [id number] [address] [place] [address] Cholesterol in LDL [Mass/Vol] 11 mg/dL Normal 0-129 [facility] Comment on above: Performed By: #### D HEAS, LIPID, FT3, GFR, SANDEEP, TSH, CMP, 754970, A1C, VIDH, FT4 ####[address] [address] Triglyceride [Mass/Vol] 258 mg/dL High 3-149 [facility] Comment on above: Performed By: #### D HEAS, LIPID, FT3, GFR, SANDEEP, TSH, CMP, 666965, A1C, VIDH, FT4 ####[place] [address] MALBRon 04-24-2025 U Creatinine 225.8 mg/dL Normal [facility] Comment on above: Performed By: #### M ALBR ####[place] [id number] U Microalb 16.1 mg/L Normal [facility] Comment on above: Performed By: #### M ALBR ####[place] [address] U Ratio Alb/Cre 7.1 mg/G Normal 0.0-30.0 [facility] Comment on above: Performed By: #### M ALBR ####[place] [address] TSHon 04-24-2025 TSH 4.180 mIU/mL Normal 0.550-4.780 [facility] Comment on above: Performed By: #### D HEAS, LIPID, FT3, GFR, SANDEEP, TSH, CMP, 128102, A1C, VIDH, FT4 #### [place] [id number] VIDHon 04-24-2025 Vit. D 25-Hydroxy 56.6 ng/mL [facility] Comment on above: Result Comment: Inte rpretive Values Based on Total 25(OH)D: Severe Deficiency <20 ng/mL Mild to Moderate Deficiency 20-30 ng/mL Optimum Levels 30-100 ng/mL Toxicity Possible >100 ng/mL Performed By: #### D HEAS, LIPID, FT3, GFR, SANDEEP, TSH, CMP, 127209, A1C, VIDH, FT4 ####[address] [address] B12on 03-24-2025 Cobalamin (Vitamin B12) [Mass/Vol] 1303 pg/mL High 211-911 [facility] Comment on above: Performed By: #### D HEAS, LIPID, FT3, GFR, SANDEEP, TSH, CMP, 417447, A1C, VIDH, FT4 #### [facility] [address] [place] [address] DIMERon 03-23-2025 D-Dimer <200 Normal 0-230 [facility] Comment on above: Result Comment: DDN: Results reported in D-DU ng/mL. Negative for D-dimer. DVT/PE is highly unlikely. Note: False negative results may be seen in patients on anticoagulant therapy. The result of the D-Dimer test should be evaluated in the context of all the clinical and laboratory data available. In those instances where the laboratory result does not agree with the clinical evaluation, additional tests should be performed accordingly. If the D-Dimer result is used to exclude DVT or PE, the recommended cutoff value is less than 230 ng/mL. The D-Dimer result should not be used alone to rule in DVT/PE, but should be used in conjunction with a clinical pretest probability (PTP)assessment model to exclude venous thromboembolism (VTE) in patients suspected of deep venous thrombosis (DVT) and pulmonary embolism (PE). Performed By: #### E SR, DIMER ####[place] [address] ESRon 03-23-2025 Erythrocyte Sed Rate 24 mm/hr High 0-20 [facility] Comment on above: Performed By: #### E SR, DIMER ####[address] [address] .Auto Diffon 02-11-2025 Basophil, Absolute 0.0 10 3/mcL Normal 0.0-0.3 [facility] Comment on above: Performed By: #### G FR, ANEU, CBC, BMP, ADIFF ####[place] [id number] Basophils/100 WBC (Bld) 0.3 % Normal 0.0-2.[address] [facility] Comment on above: Performed By: #### G FR, ANEU, CBC, BMP, ADIFF ####[address] [address] Eosinophil, Absolute 0.0 10 3/mcL Normal 0.0-0.7 [facility] Comment on above: Performed By: #### G FR, ANEU, CBC, BMP, ADIFF ####[address] [address] Eosinophils/100 WBC (Bld) 0.0 % Normal 0.0-6.0 [facility] Comment on above: Performed By: #### G FR, ANEU, CBC, BMP, ADIFF ####[address] [address] Lymphocyte, Absolute 1.2 10 3/mcL Normal 0.9-4.3 [facility] Comment on above: Performed By: #### G FR, ANEU, CBC, BMP, ADIFF ####[address] [address] Lymphocytes/100 WBC (Bld) 13.4 % Low 20.0-40.0 [facility] Comment on above: Performed By: #### G FR, ANEU, CBC, BMP, ADIFF ####[address] [address] Monocyte, Absolute 0.5 10 3/mcL Normal 0.1-1.4 [facility] Comment on above: Performed By: #### G FR, ANEU, CBC, BMP, ADIFF ####[address] [address] Monocytes/100 WBC (Bld) 5.3 % Normal 2.0-13.[address] [facility] Comment on above: Performed By: #### G FR, ANEU, CBC, BMP, ADIFF ####[address] [address] Neutrophils/100 WBC (Bld) 81.0 % High 50.0-75.0 [facility] Comment on above: Performed By: #### G FR, ANEU, CBC, BMP, ADIFF ####[address] [address] .GFRon 02-11-2025 Estimated Glomerular Filtration Rate 62 ml/min/1.73sqm Normal [facility] Comment on above: Result Comment: Stages of Chronic Kidney Disease (CKD) Stage Description eGFR(ml/min/1.73 sq.m.) CKD 1 Normal kidney function or >=90 normal kindney function with possible kidney damage (ex. Proteinuria) CKD 2 Kidney damage with mild loss 60-89 of kidney function CKD 3a Mild to moderate loss of kidney 45-59 function CKD 3b Moderate to severe loss of 30-44 of kindey function CKD 4 Severe loss of kidney function 15-29 CKD 5 Kidney failure <15 Note: (go live 2024) the eGFR calculation was updated to the 2020 CKD-EPI creatinine equation without a race factor to calculate the eGFR results. Performed By: #### G FR, ANEU, CBC, BMP, ADIFF ####[address] [address] .NEUABSon 02-11-2025 Neutrophil, Absolute 7.4 10 3/mcL Normal 2.3-8.1 [facility] Comment on above: Performed By: #### G FR, ANEU, CBC, BMP, ADIFF ####[address] [address] BMPon 02-11-2025 BUN/Creatinine Ratio 13.6 ratio Normal 10.0-22.0 [facility] Comment on above: Performed By: #### G FR, ANEU, CBC, BMP, ADIFF ####[address] [address] Calcium [Mass/Vol] 9.2 mg/dL Normal 8.7-10.4 [facility] Comment on above: Performed By: #### G FR, ANEU, CBC, BMP, ADIFF ####[address] [address] Chloride [Moles/Vol] 105 mmol/L Normal 98-110 [facility] Comment on above: Performed By: #### G FR, ANEU, CBC, BMP, ADIFF ####[address] [address] CO2 [Moles/Vol] 29 mmol/L Normal 22-32 [facility] Comment on above: Performed By: #### G FR, ANEU, CBC, BMP, ADIFF ####[place] [address] Creatinine [Mass/Vol] 1.10 mg/dL Normal 0.50-1.20 [facility] Comment on above: Result Comment: Test ing performed on SED Web analyzer using enzymatic creatinine methodology. Performed By: #### G FR, ANEU, CBC, BMP, ADIFF ####[place] [address] Electrolyte Balance 3.0 mEq/L Low 4.0-15.0 [facility] Comment on above: Performed By: #### G FR, ANEU, CBC, BMP, ADIFF ####[place] [address] Glucose [Mass/Vol] 205 mg/dL High 70-110 [facility] Comment on above: Performed By: #### G FR, ANEU, CBC, BMP, ADIFF ####[place] [address] Potassium [Moles/Vol] 4.9 mmol/L Normal 3.5-5.0 [facility] Comment on above: Performed By: #### G FR, ANEU, CBC, BMP, ADIFF ####[place] [address] Sodium [Moles/Vol] 137 mmol/L Normal 136-145 [facility] Comment on above: Performed By: #### G FR, ANEU, CBC, BMP, ADIFF ####[place] [address] Urea nitrogen [Mass/Vol] 15.0 mg/dL Normal 8.0-22.0 [facility] Comment on above: Performed By: #### G FR, ANEU, CBC, BMP, ADIFF ####[place] [address] CBCon 02-11-2025 Erythrocyte distribution width (RBC) [Ratio] 14.1 % Normal 11.5-15.5 [facility] Comment on above: Performed By: #### G FR, ANEU, CBC, BMP, ADIFF ####[place] [id number] Hematocrit (Bld) [Volume fraction] 40.5 % Normal 34.0-46.0 [facility] Comment on above: Performed By: #### G FR, ANEU, CBC, BMP, ADIFF ####[place] [address] Hgb 13.7 G/dL Normal 12.0-16.0 [facility] Comment on above: Performed By: #### G FR, ANEU, CBC, BMP, ADIFF ####[place] [address] MCH (RBC) [Entitic mass] 29.0 pg Normal 27.0-33.0 [facility] Comment on above: Performed By: #### G FR, ANEU, CBC, BMP, ADIFF ####[place] [address] MCHC 33.9 G/dL Normal 32.0-36.0 [facility] Comment on above: Performed By: #### G FR, ANEU, CBC, BMP, ADIFF ####[place] [address] MCV (RBC) [Entitic vol] 85.6 fL Normal 80.0-99.[address] [facility] Comment on above: Performed By: #### G FR, ANEU, CBC, BMP, ADIFF ####[place] [address] Platelet 203 10 3/mcL Normal 150-450 [facility] Comment on above: Performed By: #### G FR, ANEU, CBC, BMP, ADIFF ####[place] [address] Platelet mean volume (Bld) [Entitic vol] 8.5 fL Normal 6.6-10.5 [facility] Comment on above: Performed By: #### G FR, ANEU, CBC, BMP, ADIFF ####[place] [address] RBC 4.73 10 6/mcL Normal 4.10-5.30 [facility] Comment on above: Performed By: #### G FR, ANEU, CBC, BMP, ADIFF ####[facility] [place] [address] WBC 9.1 10 3/mcL Normal 4.5-10.8 [facility] Comment on above: Performed By: #### G FR, ANEU, CBC, BMP, ADIFF ####[facility] [place] [address] LABORATORYOrdered By: Jodie Sanchez on 02-11-2025 Blood Glucose Testing Reason Routine (02/11/25 11:21 AM) [facility] Work Phone: Glucose [Mass/Vol] 214 mg/dL High 70 - 110 mg/dL [facility] Work Phone: Blood Glucose Testing Reason Routine (02/11/25 7:51 AM) [facility] Work Phone: Glucose [Mass/Vol] 194 mg/dL High 70 - 110 mg/dL [facility] Work Phone: LABORATORYOrdered By: SYSTEM SYSTEM on 02-11-2025 Basophils (Bld) [#/Vol] 0.0 103/mcL Normal 0.0 - 0.3 10^3/mcL AH Workflow SS Basophils/100 WBC (Bld) 0.3 % Normal 0.0 - 2.5 % Workflow SS Calcium [Mass/Vol] 9.2 mg/dL Normal 8.7 - 10. 4 mg/dL ADM SS Chloride [Moles/Vol] 105 mmol/L Normal 98 - 11 0 mEq/L ADM SS CO2 [Moles/Vol] 29 mmol/L Normal 22 - 32 mEq/L ADM SS Creatinine [Mass/Vol] 1.10 mg/dL Normal 0.50 - 1.20 mg/dL ADM SS Comment on above: Interpretive Data: T esting performed on SED Web analyzer using enzymatic creatinine methodology. Electrolyte Balance 3.0 mEq/L Low 4.0 - 15 .0 mEq/L ADM SS Eosinophils (Bld) [#/Vol] 0.0 103/mcL Normal 0. 0 - 0.7 10^3/mcL AH Workflow SS Eosinophils/100 WBC (Bld) 0.0 % Normal 0.0 - 6.0 % AH Workflow SS Erythrocyte distribution width (RBC) [Ratio] 14.1 % Normal 11.5 - 15.5 % AH Workflow SS Estimated Glomerular Filtration Rate 62 ml/min/1.73sqm Invalid Interpretation Code Chemistry S Comment on above: Interpretive Data: Stages of Chronic Kidney Disease (CKD) Stage Description eGFR(ml/min/1.73 sq.m.) CKD 1 Normal kidney function or >=90 normal kindney function with possible kidney damage (ex. Proteinuria) CKD 2 Kidney damage with mild loss 60-89 of kidney function CKD 3a Mild to moderate loss of kidney 45-59 function CKD 3b Moderate to severe loss of 30-44 of kindey function CKD 4 Severe loss of kidney function 15-29 CKD 5 Kidney failure <15 Note: (go live 2024) the eGFR calculation was updated to the 2020 CKD-EPI creatinine equation without a race factor to calculate the eGFR results. Glucose [Mass/Vol] 205 mg/dL High 70 - 110 mg/dL ADM SS Hematocrit (Bld) [Volume fraction] 40.5 % Normal 34.0 - 46.0 % AH Workflow SS Hemoglobin (Bld) [Mass/Vol] 13.7 G/dL Normal 12.0 - 16.0 G/dL AH Workflow SS Lymphocytes (Bld) [#/Vol] 1.2 103/mcL Normal 0. 9 - 4.3 10^3/mcL AH Workflow SS Lymphocytes/100 WBC (Bld) 13.4 % Low 20 .0 - 40.0 % AH Workflow SS MCH (RBC) [Entitic mass] 29.0 pg Normal 27. 0 - 33.0 pg AH Workflow SS MCHC 33.9 G/dL Normal 32.0 - 36.0 G/dL AH Workflow SS MCV (RBC) [Entitic vol] 85.6 fL Normal 80.0 - 99.0 fL AH Workflow SS Monocytes (Bld) [#/Vol] 0.5 103/mcL Normal 0.1 - 1.4 10^3/mcL AH Workflow SS Monocytes/100 WBC (Bld) 5.3 % Normal 2.0 - 13.0 % AH Workflow SS Neutrophils (Bld) [#/Vol] 7.4 103/mcL Normal 2. 3 - 8.1 10^3/mcL AH Workflow SS Neutrophils/100 WBC (Bld) 81.0 % High 50 .0 - 75.0 % AH Workflow SS Platelet mean volume (Bld) [Entitic vol] 8.5 fL Normal 6.6 - 10.5 fL AH Workflow SS Platelets (Bld) [#/Vol] 203 103/mcL Normal 150 - 450 10^3/mcL AH Workflow SS Potassium [Moles/Vol] 4.9 mmol/L Normal 3.5 - 5.0 mEq/L AH ADM SS RBC (Bld) [#/Vol] 4.73 106/mcL Normal 4.10 - 5.3 0 10^6/mcL AH Workflow SS Sodium [Moles/Vol] 137 mmol/L Normal 136 - 145 mEq/L ADM SS Urea nitrogen [Mass/Vol] 15.0 mg/dL Normal 8.0 - 22.0 mg/dL ADM SS Urea nitrogen/Creatinine [Mass ratio] 13.6 ratio Normal 10.0 - 22.0 ratio ADM SS WBC (Bld) [#/Vol] 9.1 103/mcL Normal 4.5 - 10.8 10^3/mcL Workflow SS .GFRon 02-10-2025 Estimated Glomerular Filtration Rate 62 ml/min/1.73sqm Normal [facility] Comment on above: Result Comment: Stages of Chronic Kidney Disease (CKD) Stage Description eGFR(ml/min/1.73 sq.m.) CKD 1 Normal kidney function or >=90 normal kindney function with possible kidney damage (ex. Proteinuria) CKD 2 Kidney damage with mild loss 60-89 of kidney function CKD 3a Mild to moderate loss of kidney 45-59 function CKD 3b Moderate to severe loss of 30-44 of kindey function CKD 4 Severe loss of kidney function 15-29 CKD 5 Kidney failure <15 Note: (go live 2024) the eGFR calculation was updated to the 2020 CKD-EPI creatinine equation without a race factor to calculate the eGFR results. Performed By: #### B MP, GFR, MG ####[place] [id number] [place] [address] BMPon 02-10-2025 BUN/Creatinine Ratio 11.8 ratio Normal 10.0-22.0 [facility] Comment on above: Performed By: #### B MP, GFR, MG ####[place] [id number] [place] [address] Calcium [Mass/Vol] 9.7 mg/dL Normal 8.7-10.4 [facility] Comment on above: Performed By: #### B MP, GFR, MG ####[address] [address] Chloride [Moles/Vol] 106 mmol/L Normal 98-110 [facility] Comment on above: Performed By: #### B MP, GFR, MG ####[address] [address] CO2 [Moles/Vol] 26 mmol/L Normal 22-32 [facility] Comment on above: Performed By: #### B MP, GFR, MG ####[address] [address] Creatinine [Mass/Vol] 1.10 mg/dL Normal 0.50-1.20 [facility] Comment on above: Result Comment: Test ing performed on SED Web analyzer using enzymatic creatinine methodology. Performed By: #### B MP, GFR, MG ####[place] [address] Electrolyte Balance 8.0 mEq/L Normal 4.0-15.0 [facility] Comment on above: Performed By: #### B MP, GFR, MG ####[address] [address] Glucose [Mass/Vol] 114 mg/dL High 70-110 [facility] Comment on above: Performed By: #### B MP, GFR, MG ####[address] [address] Potassium [Moles/Vol] 4.3 mmol/L Normal 3.5-5.0 [facility] Comment on above: Performed By: #### B MP, GFR, MG ####[address] [address] Sodium [Moles/Vol] 140 mmol/L Normal 136-145 [facility] Comment on above: Performed By: #### B MP, GFR, MG ####[place] [id number] Urea nitrogen [Mass/Vol] 13.0 mg/dL Normal 8.0-22.0 [facility] Comment on above: Performed By: #### B MP, GFR, MG ####[facility] [place] [address] LABORATORYOrdered By: Nicole Mancilla on 02-10-2025 Glucose [Mass/Vol] 129 mg/dL High 70 - 110 mg/dL [facility] Work Phone: LABORATORYOrdered By: Serafin Chavez on 02-10-2025 Blood Glucose Testing Reason Routine (02/10/25 11:31 AM) [facility] Work Phone: LABORATORYOrdered By: SYSTEM SYSTEM on 02-10-2025 Calcium [Mass/Vol] 9.7 mg/dL Normal 8.7 - 10. 4 mg/dL AH ADM SS Chloride [Moles/Vol] 106 mmol/L Normal 98 - 11 0 mEq/L AH ADM SS CO2 [Moles/Vol] 26 mmol/L Normal 22 - 32 mEq/L AH ADM SS Creatinine [Mass/Vol] 1.10 mg/dL Normal 0.50 - 1.20 mg/dL AH ADM SS Comment on above: Interpretive Data: T esting performed on SED Web analyzer using enzymatic creatinine methodology. Electrolyte Balance 8.0 mEq/L Normal 4.0 - 15 .0 mEq/L AH ADM SS Estimated Glomerular Filtration Rate 62 ml/min/1.73sqm Invalid Interpretation Code Chemistry S Comment on above: Interpretive Data: Stages of Chronic Kidney Disease (CKD) Stage Description eGFR(ml/min/1.73 sq.m.) CKD 1 Normal kidney function or >=90 normal kindney function with possible kidney damage (ex. Proteinuria) CKD 2 Kidney damage with mild loss 60-89 of kidney function CKD 3a Mild to moderate loss of kidney 45-59 function CKD 3b Moderate to severe loss of 30-44 of kindey function CKD 4 Severe loss of kidney function 15-29 CKD 5 Kidney failure <15 Note: (go live 2024) the eGFR calculation was updated to the 2020 CKD-EPI creatinine equation without a race factor to calculate the eGFR results. Glucose [Mass/Vol] 114 mg/dL High 70 - 110 mg/dL AH ADM SS Magnesium [Mass/Vol] 1.9 mg/dL Normal 1.6 - 2 .4 mg/dL AH ADM SS Potassium [Moles/Vol] 4.3 mmol/L Normal 3.5 - 5.0 mEq/L AH ADM SS Sodium [Moles/Vol] 140 mmol/L Normal 136 - 145 mEq/L AH ADM SS Urea nitrogen [Mass/Vol] 13.0 mg/dL Normal 8.0 - 22.0 mg/dL AH ADM SS Urea nitrogen/Creatinine [Mass ratio] 11.8 ratio Normal 10.0 - 22.0 ratio AH ADM SS MGon 02-10-2025 Magnesium [Mass/Vol] 1.9 mg/dL Normal 1.6-2.4 [facility] Comment on above: Performed By: #### B MP, GFR, MG ####[place] [address] .GFRon 02-09-2025 Estimated Glomerular Filtration Rate 69 ml/min/1.73sqm Normal [facility] Comment on above: Result Comment: Stages of Chronic Kidney Disease (CKD) Stage Description eGFR(ml/min/1.73 sq.m.) CKD 1 Normal kidney function or >=90 normal kindney function with possible kidney damage (ex. Proteinuria) CKD 2 Kidney damage with mild loss 60-89 of kidney function CKD 3a Mild to moderate loss of kidney 45-59 function CKD 3b Moderate to severe loss of 30-44 of kindey function CKD 4 Severe loss of kidney function 15-29 CKD 5 Kidney failure <15 Note: (go live 2024) the eGFR calculation was updated to the 2020 CKD-EPI creatinine equation without a race factor to calculate the eGFR results. Performed By: #### G FR, BMP, MG ####[place] [address] BMPon 02-09-2025 BUN/Creatinine Ratio 13.9 ratio Normal 10.0-22.0 [facility] Comment on above: Performed By: #### G FR, BMP, MG ####[place] [address] Calcium [Mass/Vol] 9.4 mg/dL Normal 8.7-10.4 [facility] Comment on above: Performed By: #### G FR, BMP, MG ####[address] [address] Chloride [Moles/Vol] 105 mmol/L Normal 98-110 [facility] Comment on above: Performed By: #### PREETHI HYDE MG ####[address] [address] CO2 [Moles/Vol] 25 mmol/L Normal 22-32 [facility] Comment on above: Performed By: #### PREETHI HYDE, MG ####[address] [address] Creatinine [Mass/Vol] 1.01 mg/dL Normal 0.50-1.20 [facility] Comment on above: Result Comment: Test ing performed on SED Web analyzer using enzymatic creatinine methodology. Performed By: #### PREETHI HYDE MG ####[place] [address] Electrolyte Balance 6.0 mEq/L Normal 4.0-15.0 [facility] Comment on above: Performed By: #### PREETHI HYDE, MG ####[place] [address] Glucose [Mass/Vol] 159 mg/dL High 70-110 [facility] Comment on above: Performed By: #### PREETHI HYDE, MG ####[place] [address] Potassium [Moles/Vol] 4.6 mmol/L Normal 3.5-5.0 [facility] Comment on above: Performed By: #### Luz CRESPO BMP, MG ####[address] [address] Sodium [Moles/Vol] 136 mmol/L Normal 136-145 [facility] Comment on above: Performed By: #### PREETHI HYDE, MG ####[place] [address] Urea nitrogen [Mass/Vol] 14.0 mg/dL Normal 8.0-22.0 [facility] Comment on above: Performed By: #### Luz CRESPO BMP, MG ####[place] [address] LABORATORYOrdered By: SYSTEM SYSTEM on 02-09-2025 Calcium [Mass/Vol] 9.4 mg/dL Normal 8.7 - 10. 4 mg/dL ADM SS Chloride [Moles/Vol] 105 mmol/L Normal 98 - 11 0 mEq/L ADM SS CO2 [Moles/Vol] 25 mmol/L Normal 22 - 32 mEq/L ADM SS Creatinine [Mass/Vol] 1.01 mg/dL Normal 0.50 - 1.20 mg/dL AH ADM SS Comment on above: Interpretive Data: T esting performed on SED Web analyzer using enzymatic creatinine methodology. Electrolyte Balance 6.0 mEq/L Normal 4.0 - 15 .0 mEq/L ADM SS Estimated Glomerular Filtration Rate 69 ml/min/1.73sqm Invalid Interpretation Code Chemistry S Comment on above: Interpretive Data: Stages of Chronic Kidney Disease (CKD) Stage Description eGFR(ml/min/1.73 sq.m.) CKD 1 Normal kidney function or >=90 normal kindney function with possible kidney damage (ex. Proteinuria) CKD 2 Kidney damage with mild loss 60-89 of kidney function CKD 3a Mild to moderate loss of kidney 45-59 function CKD 3b Moderate to severe loss of 30-44 of kindey function CKD 4 Severe loss of kidney function 15-29 CKD 5 Kidney failure <15 Note: (go live 2024) the eGFR calculation was updated to the 2020 CKD-EPI creatinine equation without a race factor to calculate the eGFR results. Glucose [Mass/Vol] 159 mg/dL High 70 - 110 mg/dL ADM SS Magnesium [Mass/Vol] 1.7 mg/dL Normal 1.6 - 2 .4 mg/dL ADM SS Potassium [Moles/Vol] 4.6 mmol/L Normal 3.5 - 5.0 mEq/L ADM SS Sodium [Moles/Vol] 136 mmol/L Normal 136 - 145 mEq/L ADM SS Urea nitrogen [Mass/Vol] 14.0 mg/dL Normal 8.0 - 22.0 mg/dL ADM SS Urea nitrogen/Creatinine [Mass ratio] 13.9 ratio Normal 10.0 - 22.0 ratio ADM SS MGon 02-09-2025 Magnesium [Mass/Vol] 1.7 mg/dL Normal 1.6-2.4 [facility] Comment on above: Performed By: #### G FR, BMP, MG ####[place] [address] XR ABDOMEN 2 VIEWS W/ DECUB/ ERECTon 02-09-2025 XR ABDOMEN 2 VIEWS W/ DECUB/ERECT ORIGINAL EXAMINATION: TWO XRAY VIEWS OF THE ABDOMEN02/09/2025 1:23 pm supine and upright two views COMPARISON: CT abdomen pelvis 01/27/2020 HISTORY: ORDERING SYSTEM PROVIDED HISTORY: Reason for Exam: Abdominal pain, rule out obstruction, evaluate for constipation FINDINGS: There is a nonobstructive bowel gas pattern. No dilated small bowel loops. Moderate to large amount of stool seen in the colon. No free air or abnormal fluid levels. There are no acute osseous abnormalities. No calculi over the renal shadows, expected course of bilateral ureters, or urinary bladder. Included lung bases are clear. IMPRESSION: No evidence of high-grade bowel obstruction. Fecal loading of the large bowel. I have personally reviewed the images of this examination and agree with the resident's findings and interpretation Interpreted by: Nate Lennon MD Preliminary Report By: Krista Bishop MD Electronically signed By Nate Lennon MD Dictated Date: 02/09/2025 1:27:42 PM Prelim Date: 02/09/2025 1:47:08 PM Sign Date: 02/09/2025 1:47:08 PM Ordering Provider: SINAI JE[facility] .GFRon 02-08-2025 Estimated Glomerular Filtration Rate 61 ml/min/1.73sqm [facility] Comment on above: Result Comment: Stages of Chronic Kidney Disease (CKD) Stage Description eGFR(ml/min/1.73 sq.m.) CKD 1 Normal kidney function or >=90 normal kindney function with possible kidney damage (ex. Proteinuria) CKD 2 Kidney damage with mild loss 60-89 of kidney function CKD 3a Mild to moderate loss of kidney 45-59 function CKD 3b Moderate to severe loss of 30-44 of kindey function CKD 4 Severe loss of kidney function 15-29 CKD 5 Kidney failure <15 Note: (go live 2024) the eGFR calculation was updated to the 2020 CKD-EPI creatinine equation without a race factor to calculate the eGFR results. Performed By: #### D HEAS, LIPID, FT3, GFR, SANDEEP, TSH, CMP, [id number], A1C, VIDH, FT4 #### [address] [address] [facility] BUN/Creatinine Ratio 7.2 ratio Low 10.0-22.0 [facility] Comment on above: Performed By: #### D HEAS, LIPID, FT3, GFR, SANDEEP, TSH, CMP, [id number], A1C, VIDH, FT4 #### [address] [address] Calcium [Mass/Vol] 8.7 mg/dL Normal 8.7-10.4 [facility] Comment on above: Performed By: #### D HEAS, LIPID, FT3, GFR, SANDEEP, TSH, CMP, [id number], A1C, VIDH, FT4 #### [address] [address] Chloride [Moles/Vol] 108 mmol/L Normal 98-110 [facility] Comment on above: Performed By: #### D HEAS, LIPID, FT3, GFR, SANDEEP, TSH, CMP, [id number], A1C, VIDH, FT4 #### [address] [address] CO2 [Moles/Vol] 26 mmol/L Normal 22-32 [facility] Comment on above: Performed By: #### D HEAS, LIPID, FT3, GFR, SANDEEP, TSH, CMP, [id number], A1C, VIDH, FT4 #### [address] [address] Creatinine [Mass/Vol] 1.11 mg/dL Normal 0.50-1.20 [facility] Comment on above: Result Comment: Test ing performed on SED Web analyzer using enzymatic creatinine methodology. Performed By: #### D HEAS, LIPID, FT3, GFR, SANDEEP, TSH, CMP, [id number], A1C, VIDH, FT4 #### [address] [address] Electrolyte Balance 5.0 mEq/L Normal 4.0-15.0 [facility] Comment on above: Performed By: #### D HEAS, LIPID, FT3, GFR, SANDEEP, TSH, CMP, [id number], A1C, VIDH, FT4 #### [address] [address] Glucose [Mass/Vol] 122 mg/dL High 70-110 [facility] Comment on above: Performed By: #### D HEAS, LIPID, FT3, GFR, SANDEEP, TSH, CMP, [id number], A1C, VIDH, FT4 #### [address] [address] Potassium [Moles/Vol] 4.5 mmol/L Normal 3.5-5.0 [facility] Comment on above: Performed By: #### D HEAS, LIPID, FT3, GFR, SANDEEP, TSH, CMP, [id number], A1C, VIDH, FT4 #### [address] [address] Sodium [Moles/Vol] 139 mmol/L Normal 136-145 [facility] Comment on above: Performed By: #### D HEAS, LIPID, FT3, GFR, SANDEEP, TSH, CMP, [id number], A1C, VIDH, FT4 #### [address] [address] Urea nitrogen [Mass/Vol] 8.0 mg/dL Normal 8.0-22.0 [facility] Comment on above: Performed By: #### D HEAS, LIPID, FT3, GFR, SANDEEP, TSH, CMP, [id number], A1C, VIDH, FT4 #### [address] [address] LABORATORYOrdered By: SYSTEM SYSTEM on 02-08-2025 Magnesium [Mass/Vol] 1.5 mg/dL Low 1.6 - 2 .4 mg/dL [facility] MGon 02-08-2025 Magnesium [Mass/Vol] 1.5 mg/dL Low 1.6-2.4 [facility] Comment on above: Performed By: #### D HEAS, LIPID, FT3, GFR, SANDEEP, TSH, CMP, [id number], A1C, VIDH, FT4 #### [address] [address] .GFRon 02-07-2025 Estimated Glomerular Filtration Rate 58 ml/min/1.73sqm Normal [facility] Comment on above: Result Comment: Stages of Chronic Kidney Disease (CKD) Stage Description eGFR(ml/min/1.73 sq.m.) CKD 1 Normal kidney function or >=90 normal kindney function with possible kidney damage (ex. Proteinuria) CKD 2 Kidney damage with mild loss 60-89 of kidney function CKD 3a Mild to moderate loss of kidney 45-59 function CKD 3b Moderate to severe loss of 30-44 of kindey function CKD 4 Severe loss of kidney function 15-29 CKD 5 Kidney failure <15 Note: (go live 2024) the eGFR calculation was updated to the 2020 CKD-EPI creatinine equation without a race factor to calculate the eGFR results. Performed By: #### B MP, GFR, MG ####[address] [address] BMPon 02-07-2025 BUN/Creatinine Ratio 10.3 ratio Normal 10.0-22.0 [facility] Comment on above: Performed By: #### B MP, GFR, MG ####[address] [address] Calcium [Mass/Vol] 9.0 mg/dL Normal 8.7-10.4 [facility] Comment on above: Performed By: #### B MP, GFR, MG ####[address] [address] Chloride [Moles/Vol] 107 mmol/L Normal 98-110 [facility] Comment on above: Performed By: #### B MP, GFR, MG ####[address] [address] CO2 [Moles/Vol] 26 mmol/L Normal 22-32 [facility] Comment on above: Performed By: #### B MP, GFR, MG ####[address] [address] Creatinine [Mass/Vol] 1.17 mg/dL Normal 0.50-1.20 [facility] Comment on above: Result Comment: Test ing performed on SED Web analyzer using enzymatic creatinine methodology. Performed By: #### B MP, GFR, MG ####[address] [address] Electrolyte Balance 7.0 mEq/L Normal 4.0-15.0 [facility] Comment on above: Performed By: #### B MP, GFR, MG ####[address] [address] Glucose [Mass/Vol] 129 mg/dL High 70-110 [facility] Comment on above: Performed By: #### B MP, GFR, MG ####[address] [address] Potassium [Moles/Vol] 4.1 mmol/L Normal 3.5-5.0 [facility] Comment on above: Performed By: #### B MP, GFR, MG ####[place] [address] Sodium [Moles/Vol] 140 mmol/L Normal 136-145 [facility] Comment on above: Performed By: #### B MP, GFR, MG ####[place] [address] Urea nitrogen [Mass/Vol] 12.0 mg/dL Normal 8.0-22.0 [facility] Comment on above: Performed By: #### B MP, GFR, MG ####[address] [address] MGon 02-07-2025 Magnesium [Mass/Vol] 1.6 mg/dL Normal 1.6-2.4 [facility] Comment on above: Performed By: #### B MP, GFR, MG ####[address] [address] MRI SPINE LUMBAR W/ + W/O CO NTRASTon 02-07-2025 MRI SPINE LUMBAR W/ + W/O CONTRAST ORIGINAL EXAMINATION: MRI OF THE LUMBAR SPINE WITHOUT AND WITH CONTRAST 02/07/2025 2:41 pm TECHNIQUE: Multiplanar multisequence MRI of the lumbar spine was performed without and with the administration of intravenous contrast. COMPARISON: CT lumbar spine without contrast 02/05/2025, MRI lumbar spine with and without contrast 07/03/2024 HISTORY: ORDERING SYSTEM PROVIDED HISTORY: Reason for Exam: Acute on chronic back pain FINDINGS: BONES/ALIGNMENT: Redemonstration of changes status post L4 laminectomy for L4-5 decompression vertebral body heights are maintained. Marrow signal is largely preserved with some Modic type 2 changes noted along the anterior endplate of the L1 vertebral body. SPINAL CORD: The conus terminates normally at L1-2. No abnormal signal. SOFT TISSUES: Soft tissue enhancement is appreciated along the bilateral L3 through 5 articular facets, particularly about the L4-5 facets bilaterally. Enhancement is also noted within the posterior paraspinal soft tissues and left erector spinae musculature, decreased from the prior study. No significant edema. No fluid collection. T12-L1: Stable appearance of a large left central and subarticular zone disc extrusion with associated moderate narrowing of the spinal canal. No significant neural foraminal stenosis. L1-L2: There is no significant disc protrusion, spinal canal stenosis or neural foraminal narrowing. L2-L3: There is no significant disc protrusion, spinal canal stenosis or neural foraminal narrowing. L3-L4: There is no significant disc protrusion, spinal canal stenosis or neural foraminal narrowing. L4-L5: The spinal canal is widely patent. An anterior disc bulge is noted. Facet arthropathy is appreciated bilaterally with moderate right neural foraminal stenosis. L5-S1: Mild bilateral facet hypertrophy with associated mild bilateral neural foraminal stenosis. IMPRESSION: 1. No acute abnormality, fracture, or worsening narrowing of the spinal canal or neural foramina. 2. Redemonstration of changes status post L4 laminectomy for L4-5 decompression. 3. Decreased postoperative soft tissue enhancement. No significant edema. No fluid collection. 4. Stable appearance of a large left central and subarticular zone disc extrusion at T12-L1 with associated moderate narrowing of the spinal canal. 5. Moderate right neural foraminal stenosis at L4-5. Interpreted by: Shira Carvajal Preliminary Report By: Shira Carvajal Electronically signed By Shira Carvajal Dictated Date: 02/07/2025 3:14:27 PM Prelim Date: 02/07/2025 3:28:44 PM Sign Date: 02/07/2025 3:28:44 PM Ordering Provider: JEFF MEANS [facility] MAIN MRI SPINE THORACIC W/ + W/O CONTRASTon 02-07-2025 MRI SPINE THORACIC W/ + W/O CONTRAST ORIGINAL EXAMINATION: MRI OF THE THORACIC SPINE WITHOUT AND WITH CONTRAST 02/07/2025 2:35 pm TECHNIQUE: Multiplanar multisequence MRI of the thoracic spine was performed without and with the administration of intravenous contrast. COMPARISON: MRI T-spine with and without contrast 07/17/2024 HISTORY: ORDERING SYSTEM PROVIDED HISTORY: Reason for Exam: Acute on chronic back pain FINDINGS: BONES/ALIGNMENT: There is normal alignment of the spine. The vertebral body heights are maintained. The bone marrow signal appears unremarkable. No abnormal marrow enhancement. SPINAL CORD: Minimal cord signal change is appreciated within the left lateral china cord at the level of a large right subarticular herniation at T10-11. SOFT TISSUES: Prevertebral and paraspinal soft tissues are grossly unremarkable. No abnormal enhancement of the thoracic spine. No paraspinal mass identified. DEGENERATIVE CHANGES: Multilevel degenerative changes are appreciated with intervertebral disc space loss and disc desiccation. These changes appear most severe at T9-10 with a small left subarticular zone herniation resulting in minimal narrowing of the spinal canal and slight effacement of the left lateral hemicord without significant cord signal change. At T10-11, a large right subarticular zone herniation with superior extrusion is appreciated resulting in moderate narrowing of the spinal canal and effacement of the right hemicord. There is minimal increased signal within the left china cord at this level, overall similar in appearance to the prior study. Findings at T12-L1 are described on separate dedicated lumbar imaging. IMPRESSION: 1. No acute abnormality or abnormal enhancement of the thoracic spine. 2. Multilevel degenerative changes, most severe at T10-11 with a large right subarticular zone herniation with superior extrusion resulting in moderate narrowing of the spinal canal and effacement of the right hemicord. There is minimal increased signal within the left china cord at this level, overall similar in appearance to the prior study. Interpreted by: Shira Carvajal Preliminary Report By: Shira Carvajal Electronically signed By Shira Carvajal Dictated Date: 02/07/2025 3:00:47 PM Prelim Date: 02/07/2025 3:14:16 PM Sign Date: 02/07/2025 3:14:16 PM Ordering Provider: JEFF Balbuena [facility] .Auto Diffon 02-06-2025 Basophil, Absolute 0.1 10 3/mcL Normal 0.0-0.3 [facility] Comment on above: Performed By: #### E SR, CK, CMP, PRO, LAC, GFR, MG, CBC, ADIFF, ANEU ####[address] [address] Basophils/100 WBC (Bld) 0.8 % Normal 0.0-2.[address] [facility] Comment on above: Performed By: #### E SR, CK, CMP, PRO, LAC, GFR, MG, CBC, ADIFF, ANEU ####[address] [address] Eosinophil, Absolute 0.5 10 3/mcL Normal 0.0-0.7 [facility] Comment on above: Performed By: #### E SR, CK, CMP, PRO, LAC, GFR, MG, CBC, ADIFF, ANEU ####[address] [address] Eosinophils/100 WBC (Bld) 6.4 % High 0.0-6.0 [facility] Comment on above: Performed By: #### E SR, CK, CMP, PRO, LAC, GFR, MG, CBC, ADIFF, ANEU ####[address] [address] Lymphocyte, Absolute 1.8 10 3/mcL Normal 0.9-4.3 [facility] Comment on above: Performed By: #### E SR, CK, CMP, PRO, LAC, GFR, MG, CBC, ADIFF, ANEU ####[address] [address] Lymphocytes/100 WBC (Bld) 22.7 % Normal 20.0-40.0 [facility] Comment on above: Performed By: #### E SR, CK, CMP, PRO, LAC, GFR, MG, CBC, ADIFF, ANEU ####[address] [address] Monocyte, Absolute 0.7 10 3/mcL Normal 0.1-1.4 [facility] Comment on above: Performed By: #### E SR, CK, CMP, PRO, LAC, GFR, MG, CBC, ADIFF, ANEU ####[address] [address] Monocytes/100 WBC (Bld) 8.4 % Normal 2.0-13.0 [facility] Comment on above: Performed By: #### E SR, CK, CMP, PRO, LAC, GFR, MG, CBC, ADIFF, ANEU ####[facility] [place] [address] Neutrophils/100 WBC (Bld) 61.7 % Normal 50.0-75.0 [facility] Comment on above: Performed By: #### E SR, CK, CMP, PRO, LAC, GFR, MG, CBC, ADIFF, ANEU ####[place] [id number] [place] [address] .GFRon 02-06-2025 Estimated Glomerular Filtration Rate 53 ml/min/1.73sqm Normal [facility] Comment on above: Result Comment: Stages of Chronic Kidney Disease (CKD) Stage Description eGFR(ml/min/1.73 sq.m.) CKD 1 Normal kidney function or >=90 normal kindney function with possible kidney damage (ex. Proteinuria) CKD 2 Kidney damage with mild loss 60-89 of kidney function CKD 3a Mild to moderate loss of kidney 45-59 function CKD 3b Moderate to severe loss of 30-44 of kindey function CKD 4 Severe loss of kidney function 15-29 CKD 5 Kidney failure <15 Note: (go live 2024) the eGFR calculation was updated to the 2020 CKD-EPI creatinine equation without a race factor to calculate the eGFR results. Performed By: #### D HEAS, LIPID, FT3, GFR, SANDEEP, TSH, CMP, [id number], A1C, VIDH, FT4 #### [facility] [address] [place] [address] .NEUABSon 02-06-2025 Neutrophil, Absolute 4.9 10 3/mcL Normal 2.3-8.1 [facility] Comment on above: Performed By: #### E SR, CK, CMP, PRO, LAC, GFR, MG, CBC, ADIFF, ANEU ####[facility] [place] [address] CBCon 02-06-2025 Erythrocyte distribution width (RBC) [Ratio] 13.9 % Normal 11.5-15.5 [facility] Comment on above: Performed By: #### E SR, CK, CMP, PRO, LAC, GFR, MG, CBC, ADIFF, ANEU ####[place] [address] Hematocrit (Bld) [Volume fraction] 39.4 % Normal 34.0-46.0 [facility] Comment on above: Performed By: #### E SR, CK, CMP, PRO, LAC, GFR, MG, CBC, ADIFF, ANEU ####[place] [address] Hgb 13.7 G/dL Normal 12.0-16.0 [facility] Comment on above: Performed By: #### E SR, CK, CMP, PRO, LAC, GFR, MG, CBC, ADIFF, ANEU ####[place] [address] MCH (RBC) [Entitic mass] 29.7 pg Normal 27.0-33.0 [facility] Comment on above: Performed By: #### E SR, CK, CMP, PRO, LAC, GFR, MG, CBC, ADIFF, ANEU ####[place] [address] MCHC 34.9 G/dL Normal 32.0-36.0 [facility] Comment on above: Performed By: #### E SR, CK, CMP, PRO, LAC, GFR, MG, CBC, ADIFF, ANEU ####[place] [address] MCV (RBC) [Entitic vol] 85.2 fL Normal 80.0-99.[address] [facility] Comment on above: Performed By: #### E SR, CK, CMP, PRO, LAC, GFR, MG, CBC, ADIFF, ANEU ####[place] [address] Platelet 176 10 3/mcL Normal 150-450 [facility] Comment on above: Performed By: #### E SR, CK, CMP, PRO, LAC, GFR, MG, CBC, ADIFF, ANEU ####[place] [address] Platelet mean volume (Bld) [Entitic vol] 8.5 fL Normal 6.6-10.5 [facility] Comment on above: Performed By: #### E SR, CK, CMP, PRO, LAC, GFR, MG, CBC, ADIFF, ANEU ####[address] [address] RBC 4.62 10 6/mcL Normal 4.10-5.30 [facility] Comment on above: Performed By: #### E SR, CK, CMP, PRO, LAC, GFR, MG, CBC, ADIFF, ANEU ####[place] [address] WBC 7.9 10 3/mcL Normal 4.5-10.8 [facility] Comment on above: Performed By: #### E SR, CK, CMP, PRO, LAC, GFR, MG, CBC, ADIFF, ANEU ####[place] [id number] CKon 02-06-2025 CK [Catalytic activity/Vol] 57 U/L Normal 7-185 [facility] Comment on above: Performed By: #### D HEAS, LIPID, FT3, GFR, SANDEEP, TSH, CMP, [id number], A1C, VIDH, FT4 #### [place] [id number] CMPon 02-06-2025 Albumin Level 3.8 G/dL Normal 3.2-4.8 [facility] Comment on above: Performed By: #### D HEAS, LIPID, FT3, GFR, SANDEEP, TSH, CMP, [id number], A1C, VIDH, FT4 #### [place] [address] Albumin/Globulin [Mass ratio] 1.2 {ratio} Normal 0.9-1.6 [facility] Comment on above: Performed By: #### D HEAS, LIPID, FT3, GFR, SANDEEP, TSH, CMP, [id number], A1C, VIDH, FT4 #### [place] [address] ALP [Catalytic activity/Vol] 95 U/L Normal 38-126 [facility] Comment on above: Performed By: #### D HEAS, LIPID, FT3, GFR, SANDEEP, TSH, CMP, [id number], A1C, VIDH, FT4 #### [address] [address] ALT [Catalytic activity/Vol] 11 U/L Normal 10-49 [facility] Comment on above: Performed By: #### D HEAS, LIPID, FT3, GFR, SANDEEP, TSH, CMP, [id number], A1C, VIDH, FT4 #### [address] [address] AST [Catalytic activity/Vol] 13 U/L Normal 8-34 [facility] Comment on above: Performed By: #### D HEAS, LIPID, FT3, GFR, SANDEEP, TSH, CMP, [id number], A1C, VIDH, FT4 #### [address] [address] Bili Total 0.50 mg/dL Normal 0.20-1.20 [facility] Comment on above: Result Comment: Use of this assay is not recommended for patients undergoing treatment with eltrombopag due to the potential for falsely elevated results. Performed By: #### D HEAS, LIPID, FT3, GFR, SANDEEP, TSH, CMP, [id number], A1C, VIDH, FT4 #### [address] [address] BUN/Creatinine Ratio 12.8 ratio Normal 10.0-22.0 [facility] Comment on above: Performed By: #### D HEAS, LIPID, FT3, GFR, SANDEEP, TSH, CMP, [id number], A1C, VIDH, FT4 #### [address] [address] Calcium [Mass/Vol] 9.7 mg/dL Normal 8.7-10.4 [facility] Comment on above: Performed By: #### D HEAS, LIPID, FT3, GFR, SANDEEP, TSH, CMP, [id number], A1C, VIDH, FT4 #### [address] [address] Chloride [Moles/Vol] 106 mmol/L Normal 98-110 [facility] Comment on above: Performed By: #### D HEAS, LIPID, FT3, GFR, SANDEEP, TSH, CMP, [id number], A1C, VIDH, FT4 #### [address] [address] CO2 [Moles/Vol] 28 mmol/L Normal 22-32 [facility] Comment on above: Performed By: #### D HEAS, LIPID, FT3, GFR, SANDEEP, TSH, CMP, [id number], A1C, VIDH, FT4 #### [address] [address] Creatinine [Mass/Vol] 1.25 mg/dL High 0.50-1.20 [facility] Comment on above: Result Comment: Test ing performed on SED Web analyzer using enzymatic creatinine methodology. Performed By: #### D HEAS, LIPID, FT3, GFR, SANDEEP, TSH, CMP, [id number], A1C, VIDH, FT4 #### [address] [address] Electrolyte Balance 6.0 mEq/L Normal 4.0-15.0 [facility] Comment on above: Performed By: #### D HEAS, LIPID, FT3, GFR, SANDEEP, TSH, CMP, [id number], A1C, VIDH, FT4 #### [address] [address] Globulin 3.2 G/dL Normal 1.5-3.8 [facility] Comment on above: Performed By: #### D HEAS, LIPID, FT3, GFR, SANDEEP, TSH, CMP, [id number], A1C, VIDH, FT4 #### [address] [address] Glucose [Mass/Vol] 128 mg/dL High 70-110 [facility] Comment on above: Performed By: #### D HEAS, LIPID, FT3, GFR, SANDEEP, TSH, CMP, 163709, A1C, VIDH, FT4 #### [address] [address] Potassium [Moles/Vol] 3.9 mmol/L Normal 3.5-5.0 [facility] Comment on above: Performed By: #### D HEAS, LIPID, FT3, GFR, SANDEEP, TSH, CMP, [id number], A1C, VIDH, FT4 #### [place] [id number] [place] [address] Sodium [Moles/Vol] 140 mmol/L Normal 136-145 [facility] Comment on above: Performed By: #### D HEAS, LIPID, FT3, GFR, SANDEEP, TSH, CMP, [id number], A1C, VIDH, FT4 #### [address] [address] Total Protein 7.0 G/dL Normal 5.7-8.2 [facility] Comment on above: Performed By: #### D HEAS, LIPID, FT3, GFR, SANDEEP, TSH, CMP, 416884, A1C, VIDH, FT4 #### [place] [address] Urea nitrogen [Mass/Vol] 16.0 mg/dL Normal 8.0-22.0 [facility] Comment on above: Performed By: #### D HEAS, LIPID, FT3, GFR, SANDEEP, TSH, CMP, 836903, A1C, VIDH, FT4 #### [place] [id number] CRPon 02-06-2025 CRP [Mass/Vol] mg/L Normal 0.0-1.0 [facility] Comment on above: Result Comment: No te - New Reference Range in effect 20 Performed By: #### C RP ####[place] [address] ESRon 02-06-2025 Erythrocyte Sed Rate 22 mm/hr High 0-20 [facility] Comment on above: Performed By: #### E SR, CK, CMP, PRO, LAC, GFR, MG, CBC, ADIFF, ANEU ####[address] [address] LABORATORYOrdered By: SYSTEM SYSTEM on 02-06-2025 Albumin BCP dye [Mass/Vol] 3.8 G/dL Normal 3 .2 - 4.8 G/dL ADM SS Albumin/Globulin [Mass ratio] 1.2 {ratio} Normal 0.9 - 1.6 ratio ADM SS ALP [Catalytic activity/Vol] 95 U/L Normal 38 - 126 U/L ADM SS ALT No additional P-5'-P [Catalytic activity/Vol] 11 U/L Normal 10 - 49 U/L ADM SS AST [Catalytic activity/Vol] 13 U/L Normal 8 - 34 U/L ADM SS Basophils (Bld) [#/Vol] 0.1 103/mcL Normal 0.0 - 0.3 10^3/mcL Workflow SS Basophils/100 WBC (Bld) 0.8 % Normal 0.0 - 2.5 % Workflow SS Bilirubin [Mass/Vol] 0.50 mg/dL Normal 0.20 - 1.20 mg/dL ADM SS Comment on above: Interpretive Data: U se of this assay is not recommended for patients undergoing treatment with eltrombopag due to the potential for falsely elevated results. CK [Catalytic activity/Vol] 57 U/L Normal 7 - 185 U/L ADM SS CRP [Mass/Vol] mg/dL Normal 0.0 - 1.0 mg/dL ADM SS Comment on above: Interpretive Data: * *Note - New Reference Range in effect 20 Eosinophils (Bld) [#/Vol] 0.5 103/mcL Normal 0. 0 - 0.7 10^3/mcL Workflow SS Eosinophils/100 WBC (Bld) 6.4 % High 0.0 - 6.0 % Workflow SS Erythrocyte distribution width (RBC) [Ratio] 13.9 % Normal 11.5 - 15.5 % Workflow SS Globulin 3.2 G/dL Normal 1.5 - 3.8 G/dL ADM SS Hematocrit (Bld) [Volume fraction] 39.4 % Normal 34.0 - 46.0 % Workflow SS Hemoglobin (Bld) [Mass/Vol] 13.7 G/dL Normal 12.0 - 16.0 G/dL Workflow SS Lactate [Moles/Vol] 0.9 mmol/L Normal 0.5 - 2. 2 mmol/L ADM SS Lymphocytes (Bld) [#/Vol] 1.8 103/mcL Normal 0. 9 - 4.3 10^3/mcL Workflow SS Lymphocytes/100 WBC (Bld) 22.7 % Normal 20 .0 - 40.0 % Workflow SS MCH (RBC) [Entitic mass] 29.7 pg Normal 27. 0 - 33.0 pg Workflow SS MCHC 34.9 G/dL Normal 32.0 - 36.0 G/dL Workflow SS MCV (RBC) [Entitic vol] 85.2 fL Normal 80.0 - 99.0 fL Workflow SS Monocytes (Bld) [#/Vol] 0.7 103/mcL Normal 0.1 - 1.4 10^3/mcL Workflow SS Monocytes/100 WBC (Bld) 8.4 % Normal 2.0 - 13.0 % Workflow SS Neutrophils (Bld) [#/Vol] 4.9 103/mcL Normal 2. 3 - 8.1 10^3/mcL Workflow SS Neutrophils/100 WBC (Bld) 61.7 % Normal 50 .0 - 75.0 % Workflow SS Platelet mean volume (Bld) [Entitic vol] 8.5 fL Normal 6.6 - 10.5 fL Workflow SS Platelets (Bld) [#/Vol] 176 103/mcL Normal 150 - 450 10^3/mcL Workflow SS Protein [Mass/Vol] 7.0 G/dL Normal 5.7 - 8.2 G/dL ADM SS PT Coag (PPP) [Time] 11.5 s Normal 9.0 - 1 4.4 seconds [facility]TX[facility] Comment on above: Interpretive Data: E ffective 06/02/08, Protime results may be affected by some antibiotics (i.e. Ciprofloxacin, Azithromycin, Bactrim) which may potentiate the action of oral anticoagulants, with further increases in Protime/INR. PT International Ratio 1.0 ratio Invalid Interpretation Code [facility] Comment on above: Interpretive Data: Guillermina garza [employer] (CHEST, 1992, 102:312S-25S) recommended therapeutic range for oral anticoagulant therapy is: LOW RISK: Prophylaxis of venous thrombosis INR: 2.0-3.0 Treatment of pulmonary embolism 2.0-3.0 Prevention of systemic embolism 2.0-3.0 HIGH RISK: Mechanical prosthetic valves 2.5-3.5 RBC (Bld) [#/Vol] 4.62 106/mcL Normal 4.10 - 5.3 0 10^6/mcL Workflow SS WBC (Bld) [#/Vol] 7.9 103/mcL Normal 4.5 - 10.8 10^3/mcL AH Workflow SS LABORATORYOrdered By: Delia on 02-06-2025 ESR 15 minute reading (Bld) [Velocity] 22 mm/hr High 0 - 20 mm/hr AH Auto Heme SS LACon 02-06-2025 Lactic Acid Lvl 0.9 mmol/L Normal 0.5-2.2 [facility] Comment on above: Performed By: #### E SR, CK, CMP, PRO, LAC, GFR, MG, CBC, ADIFF, ANEU ####[place] [id number] [place] [address] MGon 02-06-2025 Magnesium [Mass/Vol] 1.4 mg/dL Low 1.6-2.4 [facility] Comment on above: Performed By: #### E SR, CK, CMP, PRO, LAC, GFR, MG, CBC, ADIFF, ANEU ####[place] [address] PROon 02-06-2025 INR Coag (PPP) [Relative time] 1.0 {INR} Normal [facility] Comment on above: Result Comment: [employer] (CHEST, 1992, 102:312S-25S) recommended therapeutic range for oral anticoagulant therapy is: LOW RISK: Prophylaxis of venous thrombosis INR: 2.0-3.0 Treatment of pulmonary embolism 2.0-3.0 Prevention of systemic embolism 2.0-3.0 HIGH RISK: Mechanical prosthetic valves 2.5-3.5 Performed By: #### E SR, CK, CMP, PRO, LAC, GFR, MG, CBC, ADIFF, ANEU ####[place] [id number] [place] [address] PT Coag (PPP) [Time] 11.5 s Normal 9.0-14.4 [facility] Comment on above: Result Comment: Effe ctive 06/02/08, Protime results may be affected by some antibiotics (i.e. Ciprofloxacin, Azithromycin, Bactrim) which may potentiate the action of oral anticoagulants, with further increases in Protime/INR. Performed By: #### E SR, CK, CMP, PRO, LAC, GFR, MG, CBC, ADIFF, ANEU ####[place] [id number] [place] [address] CT PELVIS W/O CONTRASTon CT PELVIS W/O CONTRAST ORIGINAL EXAMINATION: CT OF THE PELVIS WITHOUT CONTRAST 02/05/2025 7:49 pm TECHNIQUE: CT of the pelvis was performed without the administration of intravenous contrast. Multiplanar reformatted images are provided for review. Adjustment of mA and/or kV according to patient size was utilized. Automated exposure control, iterative reconstruction, and/or weight based adjustment of the mA/kV was utilized to reduce the radiation dose to as low as reasonably achievable. COMPARISON: None. HISTORY ORDERING SYSTEM PROVIDED HISTORY: Reason for Exam: low back pain, laminectomy, slip and fall and heard pop in rt hip slip and fall, right posterior hip pain, radiates to groin FINDINGS: Bones: No evidence of acute fracture or dislocation. No aggressive appearing osseous abnormality or periostitis. Soft Tissue: No significant soft tissue edema or fluid collections. No acute findings in the imaged abdomen and pelvis. Postsurgical changes are noted to the rectosigmoid colon. Joint: No significant degenerative changes. No osseous erosions. Refer to same day CT lumbar spine for evaluation of the lumbar spine. No acute findings in the imaged lower lumbar spine. IMPRESSION: No acute fracture or dislocation. I have personally reviewed the images of this examination and agree with the resident's findings and interpretation. Interpreted by: Umair Pichardo Preliminary Report By: Leti Snyder Electronically signed By Umair Pichardo Dictated Date: 02/05/2025 8:02:18 PM Prelim Date: 02/05/2025 8:10:50 PM Sign Date: 02/05/2025 8:18:18 PM Ordering Provider: LUCILLE Balbuena [facility] CT SPINE LUMBAR W/O CONTRAST on 02-05-2025 CT SPINE LUMBAR W/O CONTRAST ORIGINAL EXAMINATION: CT OF THE LUMBAR SPINE WITHOUT CONTRAST 02/05/2025 TECHNIQUE: CT of the lumbar spine was performed without the administration of intravenous contrast. Multiplanar reformatted images are provided for review. Adjustment of mA and/or kV according to patient size was utilized. Automated exposure control, iterative reconstruction, and/or weight based adjustment of the mA/kV was utilized to reduce the radiation dose to as low as reasonably achievable. COMPARISON: MRI lumbar spine July 03, 2024 HISTORY: ORDERING SYSTEM PROVIDED HISTORY: Reason for Exam: low back pain, laminectomy, slip and fall and heard pop in rt hip back pain, fall FINDINGS: BONES/ALIGNMENT: There is normal alignment of the spine. The vertebral body heights are maintained. No osseous destructive lesion is seen. Laminectomy at L4-L5. DEGENERATIVE CHANGES: No significant degenerative changes of the lumbar spine. Decrease within each of the disc space heights. Moderate stenosis at T12-L1. SOFT TISSUES/RETROPERITON EUM: No paraspinal mass is seen. IMPRESSION: Unremarkable non-contrast CT of the lumbar spine. Moderate spinal canal stenosis at T12-L1 due to disc osteophyte complex. Interpreted by: Krista Eagle MD Preliminary Report By: Krista Eagle MD Electronically signed By Krista Eagle MD Dictated Date: 02/05/2025 8:11:05 PM Prelim Date: 02/05/2025 8:12:33 PM Sign Date: 02/05/2025 8:12:33 PM Ordering Provider: LUCILLE VILLANUEVA Normal BEA MASSILLON Immunoglobulin Michael 5 IMMUNOGLOB E QN 416 IU/mL Normal 6-495 [facility] Comment on above: Result Comment: Perf ormed at: [facility] [id number] [employer]: Popeye Padgett MD, Phone: [phone] Performed By: #### L 3200.1600 #### [facility] [address] [place], [address] Anti-Parietal Cell AB, QNon 01-02-2025 ANTIPARIET CELL 1.4 Units Normal 0.0-20.0 [facility] Comment on above: Result Comment: Nega tive 0.0 - 20.0 Equivocal 20.1 - 24.9 Positive >24.9 Parietal Cell Antibodies are found in 90% of patients with pernicious anemia and 30% of first degree relatives with pernicious anemia. Performed By: #### L 3890.6200, L3890.6102 #### [facility] [address] [place], [address] Hepatitis A AB, Totalon - HEPATITIS A,TOT Negative Normal Negative [facility] Comment on above: Result Comment: Comm ent: The HAV total antibody assay detects both IgG and IgM but does not differentiate between them. A negative result suggests susceptibility to infection. A positive result could be due to vaccination, previously resolved infection or active infection. Testing for HAV IgM should be performed if active HAV infection is suspected. [facility] offers profiles that will automatically reflex positive HAV total antibody results to IgM (e.g., panel #[id number] HAV Antibody w/ Rfx). Performed at: [address] [id number] [employer]: Tacho Dickey PhD, Phone: [phone] Performed at: [address] [id number] [employer]: Popeye Padgett MD, Phone: [phone] Performed By: #### L 3890.6200, L3890.6102 #### [facility] [address] [place], [place], [id number] Hepatitis B Core Ab Totalon 01-02-2025 HEP B CORE,TOT Negative Normal Negative [facility] Comment on above: Performed By: #### L 3890.6200, L3890.6102 #### [facility] [address] [place], [place], [id number] Intrinsic Factor Abon 2024 INTRINS FACT AB 1.0 AU/mL Normal 0.0-1.1 [facility] Comment on above: Performed By: #### L 3890.6200, L3890.6102 #### [facility] [address] [place], [place], [id number] Hepatitis B Surface Antibody on 12-31-2024 HEP B Surf Ab Non-Reactive Normal [facility] Comment on above: Result Comment: Non Reactive: Inconsistent with immunity less than <10 mIU/mL Reactive: Consistent with immunity greater than or equal to 10 mIU/mL Performed By: #### L 3890.6200, L3890.6102 #### [facility] [address] [place], [address] L3890.6102on 12-31-2024 HEP B Surf Ag Non-Reactive Normal Nonreactive [facility] Comment on above: Performed By: #### L 3890.6200, L3890.6102 #### [facility] [address] [place], [address] CBC W/Diff, Automatedon 12-20 Absolute Lymph 2.54 X10 3/uL Normal 0.83-4.51 [facility] Comment on above: Performed By: #### L 503.0105, L3100.0300, L506.0250, L3410.0900, L100.0100, L3890.6300, L3410.1000, L501.6710, L3100.0460 #### [facility] [address] [place], [address] Absolute Neut 4.6 X10 3/uL Normal 2.0-7.7 [facility] Comment on above: Performed By: #### L 503.0105, L3100.0300, L506.0250, L3410.0900, L100.0100, L3890.6300, L3410.1000, L501.6710, L3100.0460 #### [facility] [address] [place], [address] Basophils/100 WBC (Bld) 0.5 % Normal 0-1 [facility] Comment on above: Performed By: #### L 503.0105, L3100.0300, L506.0250, L3410.0900, L100.0100, L3890.6300, L3410.1000, L501.6710, L3100.0460 #### [facility] [address] [place], [place], [address] Eosinophils/100 WBC (Bld) 2.9 % Normal 0-5 [facility] Comment on above: Performed By: #### L 503.0105, L3100.0300, L506.0250, L3410.0900, L100.0100, L3890.6300, L3410.1000, L501.6710, L3100.0460 #### [facility] [address] [place], [place], [id number] ([phone]) Erythrocyte distribution width (RBC) [Ratio] 13.1 % Normal 11.6-14.6 [facility] Comment on above: Performed By: #### L 503.0105, L3100.0300, L506.0250, L3410.0900, L100.0100, L3890.6300, L3410.1000, L501.6710, L3100.0460 #### [facility] [address] [place], [place], [id number] (202) Hematocrit (Bld) [Volume fraction] 40.6 % Normal 37-47 [facility] Comment on above: Performed By: #### L 503.0105, L3100.0300, L506.0250, L3410.0900, L100.0100, L3890.6300, L3410.1000, L501.6710, L3100.0460 #### [facility] [address] [place], [address] Hemoglobin (Bld) [Mass/Vol] 13.6 g/dL Normal 12.0-15.0 [facility] Comment on above: Performed By: #### L 503.0105, L3100.0300, L506.0250, L3410.0900, L100.0100, L3890.6300, L3410.1000, L501.6710, L3100.0460 #### [facility] [address] [place], [address] IG% 0.100 Normal 0.0-0.9 [facility] Comment on above: Result Comment: IG% - Immature Granulocytes (promyelocytes, myelocytes and metamyelocytes) > 1% indicates that a LEFT SHIFT is Present. Performed By: #### L 503.0105, L3100.0300, L506.0250, L3410.0900, L100.0100, L3890.6300, L3410.1000, L501.6710, L3100.0460 #### [facility] [address] [place], [address] Lymphocytes/100 WBC (Bld) 31.9 % Normal 19-41 [facility] Comment on above: Performed By: #### L 503.0105, L3100.0300, L506.0250, L3410.0900, L100.0100, L3890.6300, L3410.1000, L501.6710, L3100.0460 #### [facility] [address] [place], [address] MCH (RBC) [Entitic mass] 29.1 pg Normal 27.0-32.0 [facility] Comment on above: Performed By: #### L 503.0105, L3100.0300, L506.0250, L3410.0900, L100.0100, L3890.6300, L3410.1000, L501.6710, L3100.0460 #### [facility] [address] [place], [address] MCHC (RBC) [Mass/Vol] 33.5 g/dL Normal 32-36 [facility] Comment on above: Performed By: #### L 503.0105, L3100.0300, L506.0250, L3410.0900, L100.0100, L3890.6300, L3410.1000, L501.6710, L3100.0460 #### [facility] [address] [place], [address] MCV (RBC) [Entitic vol] 86.9 fL Normal 81-99 [facility] Comment on above: Performed By: #### L 503.0105, L3100.0300, L506.0250, L3410.0900, L100.0100, L3890.6300, L3410.1000, L501.6710, L3100.0460 #### [facility] [address] [place], [address] Monocytes/100 WBC (Bld) 7.0 % Normal 0-10 [facility] Comment on above: Performed By: #### L 503.0105, L3100.0300, L506.0250, L3410.0900, L100.0100, L3890.6300, L3410.1000, L501.6710, L3100.0460 #### [facility] [address] [place], [address] Neutrophils/100 WBC (Bld) 57.6 % Normal 47-70 [facility] Comment on above: Performed By: #### L 503.0105, L3100.0300, L506.0250, L3410.0900, L100.0100, L3890.6300, L3410.1000, L501.6710, L3100.0460 #### [facility] [address] [place] [place], [address] Nucleated RBC (Bld) [#/Vol] 0 10*3/uL Normal 0-5 [facility] Comment on above: Performed By: #### L 503.0105, L3100.0300, L506.0250, L3410.0900, L100.0100, L3890.6300, L3410.1000, L501.6710, L3100.0460 #### [facility] [address] [place], [address] Platelet mean volume (Bld) [Entitic vol] 10.6 fL Normal 6.2-12.0 [facility] Comment on above: Performed By: #### L 503.0105, L3100.0300, L506.0250, L3410.0900, L100.0100, L3890.6300, L3410.1000, L501.6710, L3100.0460 #### [facility] [address] [place], [address] Platelets (Bld) [#/Vol] 231 10*3/uL Normal 150-450 [facility] Comment on above: Performed By: #### L 503.0105, L3100.0300, L506.0250, L3410.0900, L100.0100, L3890.6300, L3410.1000, L501.6710, L3100.0460 #### [facility] [address] [place], [address] RBC (Bld) [#/Vol] 4.67 10*6/uL Normal 4.2-5.4 [facility] Comment on above: Performed By: #### L 503.0105, L3100.0300, L506.0250, L3410.0900, L100.0100, L3890.6300, L3410.1000, L501.6710, L3100.0460 #### [facility] [address] [place], [address] RDW SD 40.8 fl Normal 35.1-43.9 [facility] Comment on above: Performed By: #### L 503.0105, L3100.0300, L506.0250, L3410.0900, L100.0100, L3890.6300, L3410.1000, L501.6710, L3100.0460 #### [facility] [address] [place], [address] WBC (Bld) [#/Vol] 8.0 10*3/uL Normal 4.4-11.0 [facility] Comment on above: Performed By: #### L 503.0105, L3100.0300, L506.0250, L3410.0900, L100.0100, L3890.6300, L3410.1000, L501.6710, L3100.0460 #### [facility] [address] [place], [place], [address] CRPon 12-30-2024 C-REACTIVE PROT 4.13 mg/L High 0.0-3.0 [facility] Comment on above: Result Comment: C-Re active Protein (CRP) provides useful information for the diagnosis, therapy and monitoring of inflammatory processes and associated diseases. For the evaluation of Relative Risk for Cardiovascular Disease, a High Sensitivity CRP (HSCRP) should be ordered. Performed By: #### L 503.0105, L3100.0300, L506.0250, L3410.0900, L100.0100, L3890.6300, L3410.1000, L501.6710, L3100.0460 #### [facility] [address] [place], [address] Folates, (Folic Acid)on 12-20 FOLATES 6.10 ng/mL Normal 3.1-55.4 [facility] Comment on above: Order Comment: N Performed By: #### L 503.0105, L3100.0300, L506.0250, L3410.0900, L100.0100, L3890.6300, L3410.1000, L501.6710, L3100.0460 #### [facility] [address] [place], [place], [address] Gastroenterology Visit Repor ton 12-30-2024 Gastroenterology Visit Report [facility] [address] [place] [address] OFFICE VISIT Date of Service: 12/30/24 MR#: [id number] Acct: [id number] Name: APRIL ROSA Rep #: [id number] : 1975 Provider: MARY sterling Age/Sex: 49/F [place] [facility] [place]: Signed Intake Vital Signs 01/25/24 05:54 12/30/24 15:50 Height 5 ft 8 in 5 ft 8 in Weight: 268 lb 2 oz BMI 40.7 BP 121/85 H Respiration 16 Pulse 91 Pulse Oximetry (%) 96 Oxygen Delivery Method room air Intake Visit Reasons: ED follow up Chief Complaint: something sticking out of my butt Allergies amlodipine Allergy (Intermediate, Verified 12/30/24 15:46) Other lisinopril Allergy (Intermediate, Verified 12/30/24 15:46) Other metoclopramide (From Reglan) Allergy (Intermediate, Verified 12/30/24 15:46) Other orphenadrine (From Norflex) Allergy (Intermediate, Verified 12/30/24 15:46) Other pioglitazone (From Actos) Allergy (Intermediate, Verified 12/30/24 15:46) Other prochlorperazine (From Compazine) Allergy (Intermediate, Verified 12/30/24 15:46) Other rizatriptan (From Maxalt) Allergy (Intermediate, Verified 12/30/24 15:46) Other sumatriptan (From Imitrex) Allergy (Intermediate, Verified 12/30/24 15:46) Other Medications ???Medication ???Instructions ???Recorded ???Confirmed ???Type albuterol sulfate 1.25 mg/3 mL 1.25 mg inhalation Q4H 03/15/23 History solution for nebulization albuterol sulfate 90 mcg/actuation 2 puff inhalation Q6H PRN 12/30/24 History aerosol inhaler shortness of breath or wheezing aspirin 81 mg tablet,delayed 81 mg PO DAILY 03/15/23 12/30/24 H istory release biotin 10 mg tablet 10 mg PO DAILY 03/15/23 12/30/24 H istory bupropion HCl 150 mg 24 hr tablet, 150 mg PO QAM 03/15/23 12/30/24 History extended release cetirizine 10 mg tablet 10 mg PO DAILY PRN allergy symptom s 03/15/23 12/30/24 History cholecalciferol (vitamin D3) 125 125 mcg PO DAILY 03/15/23 12/30/24 History mcg (5,000 unit) capsule clonidine HCl 0.3 mg tablet 0.3 mg PO BID 03/15/23 12/30/24 Hi story levalbuterol HCl 0.63 mg/3 mL 0.63 mg inhalation ONCE PRN 12/30/24 History solution for nebulization shortness of breath or wheezing omega-3 fatty acids-fish oil 360 1 cap PO DAILY 03/15/23 12/30/24 H istory mg-1,200 mg capsule (Fish Oil) propranolol 40 mg tablet 40 mg PO ONCE 03/15/23 12/30/24 Hi story spironolactone 50 mg tablet 50 mg PO DAILY 03/15/23 12/30/24 H istory atorvastatin 10 mg tablet 10 mg PO DAILY 01/11/24 12/30/24 H istory metformin 500 mg tablet 1,500 mg PO DAILY 01/11/24 5 History montelukast 10 mg tablet 10 mg PO DAILY 01/11/24 12/30/24 H istory ondansetron HCl 8 mg tablet 8 mg PO Q12H PRN nausea and 12/30/24 History vomiting quetiapine 50 mg tablet 50 mg PO QHS 01/11/24 12/30/24 His tory tirzepatide 5 mg/0.5 mL 5 mg subcut QWEEK 01/11/24 5 History subcutaneous pen injector (Mounjaro) B.coagulan,subtilis 1 bill. tab PO 12/30/24 12/30/24 History cell-inulin 1 gram-vit C 15 mg chew tablet (Culturelle Probiotic-Prebiotic) hydrocortisone acetate 25 mg 25 mg WA QHS #7 ea 12/30/24 Rx rectal suppository (Anusol-HC) linaclotide 145 mcg capsule 145 mcg PO QAM #90 caps 12/30/24 0 12/30/24 Rx (Linzess) pregabalin 50 mg capsule (Lyrica) 50 mg PO TID 12/30/24 12/30/24 Hi story vitamin E (dl, acetate) 45 mg (100 45 mg PO BID 12/30/24 12/30/24 H istory unit) capsule omeprazole 40 mg capsule,delayed 40 mg PO QDAY #90 caps 12/31/24 Rx release Nurse's Note: Has a vein or something coming out of her butt since her las surgery and since the colonoscopy in January she has been constipated. Had severe heartburn that sent her to the ER and it took 2 GI cocktails and a week of Carafate to resolve. [facility] Medical History (Updated 12/30/24 @ 16:40 by Kaley Hope NP-C) Wears glasses History of renal disease High cholesterol History of diverticulitis GERD (gastroesophageal reflux disease) Non-smoker History of heart attack History of stress test History of echocardiogram Myocardial infarction Diverticulitis Sleep apnea Personality disorder Left-sided weakness Migraine Fibromyalgia HTN (hypertension) Environmental allergies Depression Cough Vitamin D deficiency Hirsutism Hypertriglyceridemia Asthma Anxiety Metabolic syndrome PCOS (polycystic ovarian syndrome) Abdominal pain CKD (chronic kidney disease), stage III Type 2 diabetes mellitus Surgical History (Updated 01/22/24 @ 15:50 by Gutsabo Maldonado) History of cardiac catheterization History of bowel resection H/O vaginal hysterectomy Family History (Updated 03/15/23 @ (more content not included)... Normal [facility] Hepatitis C Antibodyon 12-30 Hepatitis C AB Non-Reactive Normal Nonreactive [facility] Comment on above: Order Comment: Reaso n for Exam: liver steatosis Result Comment: Non Reactive: < 0.8 Equivocal: >/= 0.8 to < 1.0 Reactive: >/= 1.0 The CDC requires that a reactive/equivocal HCV antibody result be sent out for confirmation. HCV Quant by PCR testing. Performed By: #### L 503.0105, L3100.0300, L506.0250, L3410.0900, L100.0100, L3890.6300, L3410.1000, L501.6710, L3100.0460 #### [facility] [address] [place], [place], [id number] Vitamin B12on 12-30-2024 Cobalamin (Vitamin B12) [Mass/Vol] 906 pg/mL Normal 211-911 [facility] Comment on above: Order Comment: Reaso n for Exam: liver steatosis Performed By: #### L 503.0105, L3100.0300, L506.0250, L3410.0900, L100.0100, L3890.6300, L3410.1000, L501.6710, L3100.0460 #### [facility] [place], [address] XR CHEST 2V FRONTAL/LATon XR CHEST 2V FRONTAL/LAT * * *Final Repor t* * * DATE OF EXAM: Dec 22 2024 12:01AM GRX [id number] - XR CHEST 2V FRONTAL/LAT / PROCEDURE REASON: Chest Pain * * * * Physician Interpretation * * * * EXAMINATION: CHEST RADIOGRAPH (2 VIEW FRONTAL and LATERAL) CLINICAL HISTORY: Chest Pain MQ: [id number]_6 EXAM DATE/TIME: 12/22/2024 12:01 AM COMPARISON: 06/29/2016 RESULT: Lines, tubes, and devices: None. Lungs and pleura: No consolidation. No lung mass. No pleural effusion. No pneumothorax. Cardiomediastinal silhouette: Normal cardiomediastinal silhouette. Bones and soft tissues: Unremarkable. IMPRESSION: No acute radiographic abnormality. Quality Assurance Associate: PSCB Transcribe Date/Time: Dec 22 2024 1:19A Dictated by : LASHELL FRENCH MD This examination was interpreted and the report reviewed and electronically signed by: LASHELL FRENCH MD on Dec 22 2024 1:19AM EST [id number] CN Normal [facility] ALLIED HEALTHon 12-21-2024 ALLIED HEALTH HNO ID: [id number] Author: FRANCISCO CALLOWAY RT(R) Service: Radiology Author Type: Fuel Cell Technician Type: Allied Health Filed: 12/21/2024 23:52 Note Text: Radiology Service Progress Note PATIENT NAME: April Rosa DATE OF SERVICE: December 21, 2024 TIME: 11:52 PM PATIENT IDENTITY VERIFICATION COMPLETED USING TWO (2) IDENTIFIERS: Name and Date of confirmed by patient verbally. FALL SCREENING: Has the patient had 2 falls in the last year or 1 fall with injury or currently using an Ambulatory Assistive Device (Walker, Cane, Wheelchair, Crutches, etc.)? Emergency Room Patient: Screened in ED PATIENT GENDER DATA: Assigned female at . status: : No status: NO. PATIENT RELEVANT IMPLANT DATA REVIEWED: Yes PATIENT PRESENTS WITH AN IMPLANTABLE OR ATTACHED PRODUCTION DESIGNER: No RADIOLOGY DEPARTMENT: General X-ray: Exam(s) Completed: Chest X-Ray PERIPHERAL IV DATA: Not applicable SIGNED BY: RT Zakia(R) December 21, 2024 11:52 PM Normal [facility] ALLIED HEALTH HNO ID: [id number] Author: FRANCISCO CALLOWAY RT(R) Service: Radiology Author Type: Fuel Cell Technician Type: Allied Health Filed: 12/21/2024 23:52 Note Text: Radiology Service Progress Note DATE OF SERVICE: December 21, 2024 TIME: 11:51 PM PATIENT IDENTITY VERIFICATION COMPLETED USING TWO (2) STANDARD IDENTIFIERS: Name and Date of confirmed by patient verbally. FALL SCREENING: Has the patient had 2 falls in the last year or 1 fall with injury or currently using an Ambulatory Assistive Device (Walker, Cane, Wheelchair, Crutches, etc.)? Emergency Room Patient: Screened in ED PATIENT GENDER DATA: Assigned female at . status: : No status: NO. PATIENT RELEVANT IMPLANT DATA REVIEWED: Yes PATIENT PRESENTS WITH AN IMPLANTABLE OR ATTACHED PRODUCTION DESIGNER: No ALLERGIES: Reviewed and unchanged CONTRAST ALLERGY: NO. EXAM: CT -CONTRAST INDUCED NEPHROPATHY RISK FACTORS: Not applicable CREATININE: Creatinine Date Value Ref Range Status 12/21/2024 1.18 (H) 0.58 - 0.96 mg/dL Final Comment: Use of this assay is not recommended for patients undergoing treatment with phenindione, due to the potential for falsely depressed results. 06/29/2016 0.94 0.51 - 0.95 mg/dL Final Estimated Glomerular Filtration Rate Date Value Ref Range Status 12/21/2024 57 (L) >=60 mL/min/1.73m? Final Comment: Estimated Glomerular Filtration Rate (eGFR) is calculated using the 2020 CKD-EPI creatinine equation. This equation utilizes serum creatinine, sex, and age as parameters. The creatinine assay has traceable calibration to isotope dilution-mass spectrometry. Refer to KDIGO guidelines for clinical interpretation. In patients with unstable renal function, e.g. those with acute kidney injury, the eGFR may not accurately reflect actual GFR. P.O.C.T. RESULTS: POC done: Yes, See Lab Tab December 21, 2024 TREATMENT: N/A PERIPHERAL IV DATA: Ambulatory: A peripheral IV was started in the Right antecubital site with a Angio cath: 20 gauge. RADIOLOGY DEPARTMENT: CT; Exam(s) Completed: Abdomen/Pelvis SIGNATURE: RT Zakia(R) PATIENT NAME: April Rosa DATE: December 21, 2024 TIME: 11:51 PM Normal [facility] CBC W Auto Differential pane l (Bld)on 12-21-2024 Basophils (Bld) [#/Vol] 0.04 10*3/uL Normal <0.11 [facility] Comment on above: Order Comment: Speci men Type: BLOOD SPECIMEN Ordering Facility: [facility] Address: [address] [place] [address] Performed By: #### 5 7021-8 #### [facility] CLIA [id number] [address] [place] [address] [place] Basophils/100 WBC (Bld) 0.5 % Normal A [facility] Comment on above: Order Comment: Speci men Type: BLOOD SPECIMEN Ordering Facility: [facility] Address: [address] [place] [address] Performed By: #### 5 7021-8 #### [facility] CLIA [id number] [address] [place] [address] [place] Differential cell count method Nom (Bld) Auto Normal [facility] Comment on above: Order Comment: Speci men Type: BLOOD SPECIMEN Ordering Facility: [facility] Address: [address] [place] [address] Performed By: #### 5 7021-8 #### [facility] CLIA [id number] [address] [place] [address] [place] Eosinophils (Bld) [#/Vol] 0.24 10*3/uL Normal <0.46 [facility] Comment on above: Order Comment: Speci men Type: BLOOD SPECIMEN Ordering Facility: [facility] Address: [address] [place] [address] Performed By: #### 5 7021-8 #### [facility] CLIA [id number] [address] [place] [address] [place] Eosinophils/100 WBC (Bld) 3.0 % Normal [facility] Comment on above: Order Comment: Speci men Type: BLOOD SPECIMEN Ordering Facility: [facility] Address: [address] [place] [address] Performed By: #### 5 7021-8 #### [facility] CLIA [id number] [address] [place] [address] [place] Erythrocyte distribution width (RBC) [Ratio] 12.8 % Normal 11.5-15.0 [facility] Comment on above: Order Comment: Speci men Type: BLOOD SPECIMEN Ordering Facility: [facility] Address: [address] [place] [address] Performed By: #### 5 7021-8 #### [facility] CLIA [id number] [address] [place] Hematocrit (Bld) [Volume fraction] 40.2 % Normal 36.0-46.0 [facility] Comment on above: Order Comment: Speci men Type: BLOOD SPECIMEN Ordering Facility: [facility] Address: [address] [place] [address] Performed By: #### 5 7021-8 #### [facility] CLIA [id number] [address] [place], [place] [address] [place] Hemoglobin (Bld) [Mass/Vol] 13.2 g/dL Normal 11.5-15.5 [facility] Comment on above: Order Comment: Speci men Type: BLOOD SPECIMEN Ordering Facility: [facility] Address: [address] [place] [address] Performed By: #### 5 7021-8 #### [facility] CLIA [id number] [address] [place], [place] [address] [place] Immature granulocytes (Bld) [#/Vol] 10*3/uL Normal <0.10 [facility] Comment on above: Order Comment: Speci men Type: BLOOD SPECIMEN Ordering Facility: [facility] Address: [address] [place] [address] Performed By: #### 5 7021-8 #### [facility] CLIA [id number] [address] [place], [place] [address] [facility] Immature granulocytes/100 WBC (Bld) 0.1 % Normal [facility] Comment on above: Order Comment: Speci men Type: BLOOD SPECIMEN Ordering Facility: [facility] Address: [address] [place] [address] Performed By: #### 5 7021-8 #### [facility] CLIA [id number] [address] [place] [address] [place] Lymphocytes (Bld) [#/Vol] 2.95 10*3/uL Normal 1.00-4.0 0 [facility] Comment on above: Order Comment: Speci men Type: BLOOD SPECIMEN Ordering Facility: [facility] Address: [address] [place] [address] Performed By: #### 5 7021-8 #### [facility] CLIA [id number] [address] [place] [address] Lymphocytes/100 WBC (Bld) 37.2 % Normal [facility] Comment on above: Order Comment: Speci men Type: BLOOD SPECIMEN Ordering Facility: [facility] Address: [address] [place] [address] Performed By: #### 5 7021-8 #### [facility] CLIA [id number] [address] [place], [place] [address] [place] MCH (RBC) [Entitic mass] 28.8 pg Normal 26.0-34.0 [facility] Comment on above: Order Comment: Speci men Type: BLOOD SPECIMEN Ordering Facility: [facility] Address: [address] [place] [address] Performed By: #### 5 7021-8 #### [facility] CLIA [id number] [address] [place], [place] [address] [place] [facility] MCHC (RBC) [Mass/Vol] 32.8 g/dL Normal 30.5-36.0 [facility] Comment on above: Order Comment: Speci men Type: BLOOD SPECIMEN Ordering Facility: [facility] Address: [address] [place] [address] Performed By: #### 5 7021-8 #### [facility] CLIA [id number] [address] [place], [place] [address] [place] MCV (RBC) [Entitic vol] 87.8 fL Normal 80.0-100.[address] [facility] Comment on above: Order Comment: Speci men Type: BLOOD SPECIMEN Ordering Facility: [facility] Address: [address] [place] [address] Performed By: #### 5 7021-8 #### [facility] CLIA [id number] [address] [place] [address] [place] Monocytes (Bld) [#/Vol] 0.80 10*3/uL Normal <0.87 [facility] Comment on above: Order Comment: Speci men Type: BLOOD SPECIMEN Ordering Facility: [facility] Address: [address] [place] [address] Performed By: #### 5 7021-8 #### [facility] CLIA [id number] [address] [place], [place] [address] [facility] [place] Monocytes/100 WBC (Bld) 10.1 % Normal A [facility] Comment on above: Order Comment: Speci men Type: BLOOD SPECIMEN Ordering Facility: [facility] Address: [address] [place] [address] Performed By: #### 5 7021-8 #### [facility] CLIA [id number] [address] [place], [place] [address] [place] Neutrophils (Bld) [#/Vol] 3.88 10*3/uL Normal 1.45-7.5 0 [facility] Comment on above: Order Comment: Speci men Type: BLOOD SPECIMEN Ordering Facility: [facility] Address: [address] [place] [address] Performed By: #### 5 7021-8 #### [facility] CLIA [id number] [address] [address] [place] Neutrophils/100 WBC (Bld) 49.1 % Normal [facility] Comment on above: Order Comment: Speci men Type: BLOOD SPECIMEN Ordering Facility: [facility] Address: [address] [place] [address] Performed By: #### 5 7021-8 #### [facility] CLIA [id number] [address] [address] [place] Nucleated RBC (Bld) [#/Vol] Normal [facility] Comment on above: Order Comment: Speci men Type: BLOOD SPECIMEN Ordering Facility: [facility] Address: [address] [place] [address] Performed By: #### 5 7021-8 #### [facility] CLIA [id number] [address] [place], [place] [address] [place] Nucleated RBC/100 WBC (Bld) [Ratio] Normal [facility] Comment on above: Order Comment: Speci men Type: BLOOD SPECIMEN Ordering Facility: [facility] Address: [address] [place] [address] Performed By: #### 5 7021-8 #### [facility] CLIA [id number] [address] [place], [place] [address] [place] Platelet mean volume (Bld) [Entitic vol] 10.0 fL Normal 9.0-12.7 [facility] Comment on above: Order Comment: Speci men Type: BLOOD SPECIMEN Ordering Facility: [facility] Address: [address] [place] [address] Performed By: #### 5 7021-8 #### [facility] CLIA [id number] [address] [place] [address] [place] Platelets (Bld) [#/Vol] 211 10*3/uL Normal 150-400 [facility] Comment on above: Order Comment: Speci men Type: BLOOD SPECIMEN Ordering Facility: [facility] Address: [address] [place] [address] Performed By: #### 5 7021-8 #### [facility] CLIA [id number] [address] [place] [address] [place] RBC (Bld) [#/Vol] 4.58 10*6/uL Normal 3.90-5.20 [facility] Comment on above: Order Comment: Speci men Type: BLOOD SPECIMEN Ordering Facility: [facility] Address: [address] [place] [address] Performed By: #### 5 7021-8 #### [facility] CLIA [id number] [address] [place], [place] [address] [place] WBC (Bld) [#/Vol] 7.92 10*3/uL Normal 3.70-11.00 [facility] Comment on above: Order Comment: Speci men Type: BLOOD SPECIMEN Ordering Facility: [facility] Address: [address] [place] [address] Performed By: #### 5 7021-8 #### [facility] CLIA [id number] [address] [place], [place] [address] [facility] [place] CT ABD/PEL W IVCONon 025 CT ABD/PEL W IVCON * * *Final Report* * * DATE OF EXAM: Dec 21 2024 11:57PM [facility] 0530 - CT ABD/PEL W IVCON / PROCEDURE REASON: epigastric abdominal pain * * * * Physician Interpretation * * * * EXAMINATION: CT ABDOMEN AND PELVIS WITH IV CONTRAST CLINICAL HISTORY: PATIENT/TECHNOLOGIST PROVIDED HISTORY: epigastric pain and burning, hx of GERD x 3 days, hx of partial hysterectomy, bowl resection CLINICAL INFORMATION ( PROVIDED BY ORDERING CLINICIAN) : epigastric abdominal pain TECHNIQUE: CT of the abdomen and pelvis was performed using standard technique, scanning from just above the dome of the diaphragm to the symphysis pubis. Coronal and sagittal reconstructed images generated. MQ: CTAP_3 Contrast: IV: 100 ml of Omnipaque 350 Oral: None CT Radiation dose: Integrated Dose-length product (DLP) for this visit = 1195.90 mGy*cm. CT Dose Reduction Employed: Automated exposure control (AEC) COMPARISON: None. RESULT: Liver: No mass. Biliary: No bile duct dilation. The gallbladder is unremarkable. Spleen: No mass. No splenomegaly. Pancreas: No mass or duct dilation. Adrenals: No mass. Kidneys: Enhance symmetrically. No hydronephrosis. GI tract: No dilation or wall thickening. The appendix appears normal. Rectosigmoid colon anastomosis. Lymph nodes: No lymphadenopathy identified. Mesentery/Peritoneum : No free air. No ascites. Retroperitoneum: No mass. Vasculature: - Abdominal aorta and iliac arteries: No aneurysm. - Celiac and SMA: Patent. - Portal venous system (SMV, splenic vein, portal vein and branches): Patent. - Hepatic veins: Patent. - Retroaortic left renal vein. Pelvis: 3.7 cm left adnexal cyst likely ovarian in origin. Urinary bladder is predominantly collapsed and otherwise unremarkable. Bones: Degenerative changes. Lower thorax: No consolidation. No pleural effusion. Localizer images: No additional findings. IMPRESSION: Appendix appears normal and no bowel obstruction or free air. No acute abnormality identified in the abdomen or pelvis. Details above. Quality Assurance Associate: PSCB Transcribe Date/Time: Dec 22 2024 1:12A Dictated by : TOM LIZARRAGA MD This examination was interpreted and the report reviewed and electronically signed by: TOM LIZARRAGA MD on Dec 22 2024 1:24AM EST [id number] CN Normal [facility] Comprehensive metabolic 2000 panelon 12-21-2024 Albumin [Mass/Vol] 4.3 g/dL Normal 3.9-4.9 [facility] Comment on above: Order Comment: Speci men Type: BLOOD SPECIMEN Ordering Facility: [facility] Address: [address] [place] [address] Performed By: #### 2 4323-8, 3040-3 #### [facility] CLIA [id number] [address] [place] [address] [place] ALP [Catalytic activity/Vol] 83 U/L Normal 34-123 [facility] Comment on above: Order Comment: Speci men Type: BLOOD SPECIMEN Ordering Facility: [facility] Address: [address] [place] [address] Performed By: #### 2 4323-8, 3040-3 #### [facility] CLIA [id number] [address] [place] [address] [place] ALT [Catalytic activity/Vol] 14 U/L Normal 7-38 [facility] Comment on above: Order Comment: Speci men Type: BLOOD SPECIMEN Ordering Facility: [facility] Address: [address] [place] [address] Performed By: #### 2 4323-8, 3040-3 #### [facility] CLIA [id number] [address] [place] Anion gap [Moles/Vol] 7 mmol/L Low 8-15 [facility] Comment on above: Order Comment: Speci men Type: BLOOD SPECIMEN Ordering Facility: [facility] Address: [address] [place] [address] Performed By: #### 2 4323-8, 3040-3 #### [facility] CLIA [id number] [address] [place] AST [Catalytic activity/Vol] 12 U/L Low 13-35 [facility] Comment on above: Order Comment: Speci men Type: BLOOD SPECIMEN Ordering Facility: [facility] Address: [address] [place] [address] Performed By: #### 2 4323-8, 3040-3 #### [facility] CLIA [id number] [address] [place] [address] [place] Bilirubin [Mass/Vol] 0.4 mg/dL Normal 0.2-1.3 [facility] Comment on above: Order Comment: Speci men Type: BLOOD SPECIMEN Ordering Facility: [facility] Address: [address] [place] [address] Result Comment: Use of this assay is not recommended for patients undergoing treatment with eltrombopag due to the potential for falsely elevated results. Performed By: #### 2 4323-8, 0-3 #### [facility] CLIA [id number] [address] [place] [address] [place] Calcium [Mass/Vol] 9.6 mg/dL Normal 8.5-10.2 [facility] Comment on above: Order Comment: Speci men Type: BLOOD SPECIMEN Ordering Facility: [facility] Address: [address] [place] [address] Performed By: #### 2 4328, 3039-3 #### [facility] CLIA [id number] [address] [place], [place] [address] [place] Chloride [Moles/Vol] 105 mmol/L Normal 98-107 [facility] Comment on above: Order Comment: Speci men Type: BLOOD SPECIMEN Ordering Facility: [facility] Address: [address] [place] [address] Performed By: #### 2 4328, 3039-3 #### [facility] CLIA [id number] [address] [place], [place] [address] [place] CO2 [Moles/Vol] 28 mmol/L Normal 22-30 [facility] Comment on above: Order Comment: Speci men Type: BLOOD SPECIMEN Ordering Facility: [facility] Address: [address] [place] [address] Performed By: #### 2 43238, 3039-3 #### [facility] CLIA [id number] [address] [place], [place] [address] [place] Creatinine [Mass/Vol] 1.18 mg/dL High 0.58-0.96 [facility] Comment on above: Order Comment: Speci men Type: BLOOD SPECIMEN Ordering Facility: [facility] Address: [address] [place] [address] Result Comment: Use of this assay is not recommended for patients undergoing treatment with phenindione, due to the potential for falsely depressed results. Performed By: #### 2 4328, 3039-3 #### [facility] CLIA [id number] [address] [place], [place] [address] [place] Creatinine and Glomerular filtration rate.predicted panel (S/P/Bld) 57 mL/min/1.73m??? Low >=60 [facility] Comment on above: Order Comment: Delmar constantino Type: BLOOD SPECIMEN Ordering Facility: [facility] Address: [address] [place] [address] Result Comment: Prema mated Glomerular Filtration Rate (eGFR) is calculated using the 2020 CKD-EPI creatinine equation. This equation utilizes serum creatinine, sex, and age as parameters. The creatinine assay has traceable calibration to isotope dilution-mass spectrometry. Refer to KDIGO guidelines for clinical interpretation. In patients with unstable renal function, e.g. those with acute kidney injury, the eGFR may not accurately reflect actual GFR. Performed By: #### 2 4323-8, 3039-3 #### [facility] CLIA [id number] [address] [place], [place] [address] [place] Glucose [Mass/Vol] 91 mg/dL Normal 74-99 [facility] Comment on above: Order Comment: Delmar constantino Type: BLOOD SPECIMEN Ordering Facility: [facility] Address: [address] [place] [address] Result Comment: The [place] Diabetes Association (ADA) provides guidance for cutoff values for fasting glucose and random glucose. The ADA defines fasting as no caloric intake for at least 8 hours. Fasting plasma glucose results between 100 to 125 mg/dL indicate increased risk for diabetes (prediabetes). Fasting plasma glucose results greater than or equal to 126 mg/dL meet the criteria for diagnosis of diabetes. In the absence of unequivocal hyperglycemia, results should be confirmed by repeat testing. In a patient with classic symptoms of hyperglycemia or hyperglycemic crisis, random plasma glucose results greater than or equal to 200 mg/dL meet the criteria for diagnosis of diabetes. Reference: Standards of Medical Care in Diabetes 2016, [place] [employer] Association. Diabetes Care. 2016.39(Suppl 1). Performed By: #### 2 4323-8, 3039-3 #### [facility] CLIA [id number] [address] [place] [address] [place] Potassium [Moles/Vol] 4.2 mmol/L Normal 3.7-5.1 [facility] Comment on above: Order Comment: Speci men Type: BLOOD SPECIMEN Ordering Facility: [facility] Address: [address] [place] [address] Performed By: #### 2 4323-8, 3040-3 #### [facility] CLIA [id number] [address] [place], [place] [address] [place] Protein [Mass/Vol] 7.1 g/dL Normal 6.3-8.0 [facility] Comment on above: Order Comment: Speci men Type: BLOOD SPECIMEN Ordering Facility: [facility] Address: [address] [place] [address] Performed By: #### 2 4323-8, 3040-3 #### [facility] CLIA [id number] [address] [place] [address] [place] Sodium [Moles/Vol] 140 mmol/L Normal 136-144 [facility] Comment on above: Order Comment: Speci men Type: BLOOD SPECIMEN Ordering Facility: [facility] Address: [address] [place] [address] Performed By: #### 2 4323-8, 3040-3 #### [facility] CLIA [id number] [address] [place], [place] [address] [place] Urea nitrogen [Mass/Vol] 16 mg/dL Normal 7-21 [facility] Comment on above: Order Comment: Speci men Type: BLOOD SPECIMEN Ordering Facility: [facility] Address: [address] [place] [address] Performed By: #### 2 4323-8, 3040-3 #### [facility] CLIA [id number] [address] [place], [place] [address] [place] ED PROV NOTEon 12-21-2024 ED PROV NOTE HNO ID: [id number] Author: ЕКАТЕРИНА UREÑA MD Service: Emergency Medicine Author Type: Physician Type: ED Provider Notes Filed: 12/22/2024 01:50 Note Text: ED CONTINUATION OF CARE NOTE Code Status: Full Code Assumed care from: Ngoc Null Presentation / Findings / Interventions / Plan / Items to Follow Up: Patient signed out to me pending CT imaging as well as chest x-ray. Patient with epigastric pain differential includes gastritis, biliary colic, gallbladder etiology, ACS EKG shows no evidence of ischemic change her troponins will be assessed. She was given a GI cocktail. Low suspicion of dissection. Patient has been having pain going on for several days now. If her workup is unremarkable will discharge with likely antacids and follow-up with primary care physician versus GI for endoscopy. CT negative for acute findings. GI cocktail improved sx although started coming back, will discharge, no indication for admission. She is already on omperazole. Will do carafate, maalox, etc. Clinical Impressions as of 12/22/24 0144 Esophagitis SIGNATURE: Екатерина Ureña MD PATIENT NAME: April Rosa DATE: December 21, 2024 TIME: 11:05 PM PAGER/CONTACT #: ЕКАТЕРИНА UREÑA 12/22/24 0146 ЕКАТЕРИНА UREÑA 12/22/24 0150 Normal [facility] ED PROV NOTE HNO ID: [id number] Author: ЕКАТЕРИНА UREÑA MD Service: Emergency Medicine Author Type: Physician General Warehouse Associate Type: ED Provider Notes Filed: 12/22/2024 00:50 Note Text: Attestation signed by Екатерина Ureña MD at 12/22/2024 12:50 AM Attending Note I evaluated the patient and personally participated in the lemus components. I agree with the PAs findings and management. Signature: Екатерина Ureña MD Date: 12/22/2024 Time: 12:50 AM ED Provider Note Patient Name: April Rosa : 1975 SERVICE DATE: 12/21/24 History Patient presents with: Chest Pain: Pt comes in with chest pain x couple days. Pt tried home remedies with no relief. Pt thought it was just heartburn, but it hasn't improved. HPI 49-year-old female presenting to the emergency department for evaluation of epigastric abdominal pain and chest pain. Patient states for the last couple days she has had a severe burning in the epigastric region. She tells me she has had acid reflux and GERD before but she says this feels different. Pain is worse when laying flat. It is not worse with p.o. intake, although she does endorse decreased p.o. intake secondary to her discomfort. She denies any pressure sensation in her chest. Denies any nausea vomiting. Has been taking hfkm-bxs-xiutave antacids without relief. Denies change in bowel habits or urinary symptoms. Denies exertional dyspnea or exertional worsening of her symptoms. No past medical history on file. No past surgical history on file. No family history on file. Social History Tobacco Use Smoking status: Not on file Smokeless tobacco: Not on file Substance and Sexual Activity Alcohol use: Not on file Drug use: Not on file Sexual activity: Not on file ALLERGIES Allergen Reactions Compazine [Prochlor* Other: See Comments Low bp Imitrex [Sumatripta* Other: See Comments Low bp Lisinopril Angioedema Norflex [Orphenadri* Other: See Comments Blood pressure drops Review of Systems Constitutional: Negative for chills and fever. Respiratory: Negative for cough and shortness of breath. Cardiovascular: Positive for chest pain. Gastrointestinal: Positive for abdominal pain. Negative for nausea and vomiting. Genitourinary: Negative. Musculoskeletal: Negative. Skin: Negative. Neurological: Negative for dizziness, light-headedness and headaches. All other systems reviewed and are negative. Physical Exam Vitals [12/21/24 2214] BP Pulse Temp Temp src Resp SpO2 Weight Height 145/103 70 36.7 ?C (98.1 ?F) Temporal 16 96 % 111.1 kg (245 lb) -- Physical Exam Vitals and nursing note reviewed. Constitutional: General: She is not in acute distress. Appearance: Normal appearance. She is not ill-appearing. Cardiovascular: Rate and Rhythm: Normal rate and regular rhythm. Pulses: Normal pulses. Heart sounds: Normal heart sounds. Pulmonary: Effort: Pulmonary effort is normal. No respiratory distress. Breath sounds: Normal breath sounds. No wheezing. Abdominal: General: Abdomen is flat. Bowel sounds are normal. There is no distension. Palpations: Abdomen is soft. Tenderness: There is abdominal tenderness. Comments: Diffuse left sided abdominal tenderness as well as epigastric and left upper quadrant Skin: General: Skin is warm and dry. Neurological: General: No focal deficit present. Mental Status: She is alert and oriented to person, place, and time. Mental status is at baseline. Psychiatric: Mood and Affect: Mood normal. Behavior: Behavior normal. Thought Content: Thought content normal. Judgment: Judgment normal. Diagnostic Testing ED Labs Ordered and Reviewed - No data to display Procedures ED Course / Clinical Impression MDM / Disposition / Plan MDM 49-year-old female presenting with epigastric burning and chest discomfort. She arrives hemodynamically stable she is well-appearing. EKG shows normal sinus rhythm without ischemia. At the time of signout labs chest x-ray and CT abdomen and pelvis pending. Symptoms could possibly be from gastritis, peptic ulcer disease, GERD, pancreatitis, diverticulitis given exam and her history Less likely acute cardiopulmonary process such as ACS PE dissection. Please see attending physician note for final plan and disposition. I do foresee discharge home if negative workup and patient improved symptomatically. Signout to Dr Ureña [id number]. SIGNATURE: PERI Marti TAYLOR 12/21/24 2306 ЕКАТЕРИНА UREÑA 12/22/24 0050 Normal [facility] EKGon 12-21-2024 Electrocardiogram Ventricular Rate : 72 BPM QRS Duration : 96 ms Q-T Interval : 400 ms QTC Calculation(Bazett) : 438 ms Calculated R Porter : 24 degrees Calculated T Porter : 23 degrees NORMAL SINUS RHYTHM ABNORMAL ECG WHEN COMPARED WITH ECG OF 29-Jun-2016 15:01, Confirmed by MD EPIFANIO, YUSEF ([id number]) on 12/27/2024 2:37:37 AM NAME : APRIL ROSA PID : [id number] : 1975 Gender : Female Race : ORD : Procedure Date : Dec 21 2024 22:16:00 Edit Date : Dec 27 2024 02:37:40 Diagnosis: NORMAL SINUS RHYTHM ABNORMAL ECG WHEN COMPARED WITH ECG OF 29-Jun-2016 15:01, Confirmed by MD GODFREY AMY ([id number]) on 12/27/2024 2:37:37 AM Test Reason : Location : 153 : [facility] ED Overread By : MD GODFREY AMY Edited By : MD GODFREY AMY Referred By : , Acquired by : SHELBY MCKINNEY Normal [facility] HCG Preg Ur Qlon 12-21-2024 HCG ( test) Ql (U) Negative Normal Negative [facility] Comment on above: Order Comment: Speci men Type: URINE SPECIMENOrdering Facility: [facility] Address: [address] [place] [address] Result Comment: This test is intended to aid in the early detection of . Very dilute urine samples, as indicated by a low specific gravity, may not contain bank representative levels of hCG. This test detects intact hCG only. This test does not reliably detect hCG degradation products, including free-beta subunit and beta-core fragment. Therefore, this test may show reduced reactivity in urine after 8 weeks gestation. A number of conditions other than , including trophoblastic disease and certain non-trophoblastic neoplasms cause elevated levels of hCG. As with any assay employing mouse antibodies, the possibility exists for interference by human anti-mouse antibodies (HAMA) in the specimen. The test provides a presumptive diagnosis for . Performed By: #### 2 106-3 ####[facility] [id number] [place] [address] [place] HIGH SENSITIVITY TROPONIN I (INITIAL)on 12-21-2024 Tropinin I.cardiac panel High sensitivity method 2.0 pg/mL Normal <=20.7 [facility] Comment on above: Order Comment: Speci men Type: BLOOD SPECIMEN Ordering Facility: [facility] Address: [address] [place] [address] Performed By: #### L [id number] #### [facility] CLIA [id number] [address] [place] [address] [place] HIGH SENSITIVITY TROPONIN I (SECOND)on 12-21-2024 Tropinin I.cardiac panel High sensitivity method 2.0 pg/mL Normal <=20.7 [facility] Comment on above: Order Comment: Speci men Type: BLOOD SPECIMENOrdering Facility: [facility] Address: [address] [place] [address] Performed By: #### H STROPI2 ####[facility] [id number] [place] [address] [place] Lipase SerPl-cCncon 12-21-19 25 Lipase [Catalytic activity/Vol] 39 U/L Normal 16-61 [facility] Comment on above: Order Comment: Speci men Type: BLOOD SPECIMENOrdering Facility: [facility] Address: [address] [place] [address] Performed By: #### 2 4323-8, 3040-3 ####[facility] [id number] [place] [address] [place] 36on 10-29-2024 36 Please see lisa au [facility] 36 Lm for patient to call the office back, please relay providers message. Your vitamin B12 level is low. Please start taking supplemental vitamin B12 once a day with a meal. I will send in a prescription to your pharmacy, but often people get it over the counter because insurance does not usually cover supplements. [facility] Hemoglobin A1con 10-29-2024 HbA1c (Bld) [Mass fraction] 6.2 % [facility] Comment on above: For someone without known diabetes, a hemoglobin A1c value between 5.7% and 6.4% is consistent with prediabetes and should be confirmed with a follow-up test. For someone with known diabetes, a value <7% indicates that their diabetes is well controlled. A1c targets should be individualized based on duration of diabetes, age, comorbid conditions, and other considerations. This assay result is consistent with an increased risk of diabetes. Currently, no consensus exists regarding use of hemoglobin A1c for diagnosis of diabetes for children. No Panel Informationon 10-29 Interpretation and review of laboratory results Abnormal [facility] TSHon 10-29-2024 TSH Qn 2.25 m[IU]/L mIU/L [facility] Comment on above: Reference Range > or = 20 Years 0.40-4.50 Ranges First trimester 0.26-2.66 Second trimester 0.55-2.73 Third trimester 0.43-2.91 Vitamin B1 ([facility])on Thiamine [Moles/Vol] 7 nmol/L Low 8 - 30 nmol/L [facility] Comment on above: Vitamin supplementation within 24 hours prior to blood draw may affect the accuracy of the results. This test was developed and its analytical performance characteristics have been determined by [employer] [place], [place]. It has not been cleared or approved by the U.S. Food and Drug Administration. This assay has been validated pursuant to the CLIA regulations and is used for clinical purposes. Vitamin B12on 10-29-2024 Cobalamin (Vitamin B12) [Mass/Vol] 260 pg/mL 200 - 1100 pg/mL [facility] Comment on above: Please Note: Although the reference range for vitamin B12 is 200-1100 pg/mL, it has been reported that between 5 and 10% of patients with values between 200 and 400 pg/mL may experience neuropsychiatric and hematologic abnormalities due to occult B12 deficiency; less than 1% of patients with values above 400 pg/mL will have symptoms. Vitamin B6on 10-29-2024 Pyridoxal phosphate [Mass/Vol] 2.3 ng/mL 2.1 - 21.7 ng/mL [facility] Comment on above: Vitamin supplementation within 24 hours prior to blood draw may affect the accuracy of the results. This test was developed and its analytical performance characteristics have been determined by [employer] [place], [place]. It has not been cleared or approved by the U.S. Food and Drug Administration. This assay has been validated pursuant to the CLIA regulations and is used for clinical purposes. 36on 10-28-2024 36 We have been unable to reach your patient to schedule their testing. Test Name: nct/emg 1st Attempt: 10/24 2nd Attempt: 10/27 3rd attempt; 10/28 Normal [facility] 29on 10-23-2024 29 Addended by: SHAMAR ROPER on: 10/29/2024 10:00 AM Modules accepted: Orders Normal [facility] Office Visiton 10-23-2024 Follow-up visit [id number] April Rosa 1975 F Date Provider Department Center 10/23/2024 [id number] ROPER [facility] None Family History Problem Relation Age of Onset Multiple sclerosis Other Family Status - Relation Status Age at Other Level of Service:29[address] [place] OFFICE/OUTPATIENT NEW HIGH MDM 60 MINUTES Reason for Visit and Comments: New Patient [542] Numbness [75] Normal [facility] Progress Noteon 10-23-2024 Progress Note [facility] [address] [facility] [address] Dept: [phone] Dept Loc: [phone] Shamar Roper MD Thank you for your kind request for a neurological consultation on this patient. CHIEF COMPLAINT: Chief Complaint Patient presents with New Patient Numbness HISTORY OF PRESENT ILLNESS: The patient is a 49 y.o. person who presents with various complaints. My PCP thinks I have MS. She reports that her problems began in November with falls. She reports that some of these events would be dizziness, other times she will feel weak in the legs. She continues to have weakness in the legs now and they suddenly give out. Later she reports that she started having issues with numbness in the upper right leg. She had this from the right hip to the knee, mostly latera, but some posterior. Nothing she does makes that numbness worse. She later had extension of the numbness from the right knee to the right foot on the top and bottom. No activity helps or hurts this. She also has right foot drop. She reports that she is having trouble learning. Her mother told her to bring up cognitive changes. She is losing her train of thought. Many of her issues started after marriage in July. She reports that if she holds something in her hands. She reports that the numbness involves the hands and finger tips and around the elbows. Putting down the ittem helps. She reports that it makes it difficult to perform using her hair curler. She reports that she had spine surgery on her lumbar spine in April of this year and that did not help. Past Medical History: has a past medical history of Anxiety, Asthma, Hypertension, and Lupus. Past Surgical History: has no past surgical history on file. Medications: Current Outpatient Medications: alpha tocopherol (Vitamin E) 100 units capsule, Take 100 Units by mouth daily., Disp: , Rfl: ALPRAZolam (Niravam) 0.5 MG disintegrating tablet, Take 0.5 mg by mouth Nightly as needed for anxiety., Disp: , Rfl: aspirin 81 MG EC tablet, Take 81 mg by mouth daily., Disp: , Rfl: atorvastatin (Lipitor) 10 MG tablet, Take 10 mg by mouth daily., Disp: , Rfl: budesonide EC (Entocort EC) 3 MG 24 hr capsule, Take 6 mg by mouth every morning., Disp: , Rfl: buPROPion SR (Wellbutrin SR) 150 MG 12 hr tablet, Take by mouth 2 times daily. Do not crush, chew, or split., Disp: , Rfl: cetirizine (ZyrTEC) 10 MG chewable tablet, Chew daily., Disp: , Rfl: Cholecalciferol (VITAMIN D-3 PO), Take 250 mcg by mouth., Disp: , Rfl: Docusate Calcium (STOOL SOFTENER PO), Take by mouth., Disp: , Rfl: levalbuterol (Xopenex) 0.63 MG/3ML nebulizer solution, Take 0.63 mg by nebulization three times daily., Disp: , Rfl: levalbuterol (Xopenex) 45 MCG/ACT inhaler, Inhale., Disp: , Rfl: metFORMIN (Glucophage) 500 MG tablet, Take 500 mg by mouth daily. 3 tabs at night, Disp: , Rfl: montelukast (Singulair) 10 MG tablet, Take by mouth., Disp: , Rfl: omeprazole (PriLOSEC) [address] capsule, Take 40 mg by mouth every morning (before breakfast). Do not crush or chew., Disp: , Rfl: ondansetron (Zofran) 4 MG tablet, Take by mouth., Disp: , Rfl: pregabalin (Lyrica) 50 MG capsule, Take 50 mg by mouth 3 times daily., Disp: , Rfl: QUEtiapine (SEROquel) 50 MG tablet, Take 50 mg by mouth Nightly., Disp: , Rfl: rosuvastatin (Crestor) 20 MG tablet, Take 20 mg by mouth daily., Disp: , Rfl: spironolactone (Aldactone) 50 MG tablet, Take 50 mg by mouth daily., Disp: , Rfl: Tirzepatide (Mounjaro) 7.5 MG/0.5ML solution auto-injector, Inject under the skin., Disp: , Rfl: Allergies: Sumatriptan, Amlodipine, Lisinopril, Metoclopramide, Orphenadrine, Pioglitazone, Prochlorperazine, Rizatriptan, Fluconazole, Lactose, and Magnesium sulfate Social History: Social History Socioeconomic History Marital status: Single Spouse name: Not on file Number of children: Not on file Years of education: Not on file Highest education level: Not on file Occupational History Not on file Tobacco Use Smoking status: Never Smokeless tobacco: Not on file Substance and Sexual Activity Alcohol use: Never Drug use: Never Sexual activity: Not on file Other Topics Concern Not on file Social History Narrative Not on file Social Drivers of Health Financial Resource Strain: Not on file Food Insecurity: Not on file Transportation Needs: Not on file Physical Activity: Not on file Stress: Not on file Social Connections: Not on file Intimate Partner Violence: Not on file Housing Stability: Not on file Family History: Family History Problem Relation Name Age of Onset Multiple sclerosis Other son REVIEW OF SYSTEMS: Review of Systems Constitutional: Negative for appetite change, chills, diaphoresis, fever and unexpected weight change. HENT: Negative for dental problem and mouth sores. Eyes: Negative for (more content not included)... Normal [facility] MRI BRAIN W/ + W/O CONTRASTo n 07-18-2024 MRI BRAIN W/ + W/O CONTRAST ORIGINAL EXAMINATION: MRI OF THE BRAIN WITHOUT AND WITH CONTRAST 07/17/2024 4:27 pm TECHNIQUE: Multiplanar multisequence MRI of the head/brain was performed without and with the administration of intravenous contrast. COMPARISON: CT head 03/22/2024, MRI brain 01/17/2023 HISTORY: ORDERING SYSTEM PROVIDED HISTORY: Reason for Exam: MS workup FINDINGS: INTRACRANIAL STRUCTURES/VENTRICLE S: There is no acute infarct. There are scattered foci of T2/FLAIR hyperintensity in the periventricular and subcortical white matter. No mass effect or midline shift. No evidence of an acute intracranial hemorrhage. The ventricles and sulci are normal in size and configuration. The sellar/suprasellar regions appear unremarkable. The normal signal voids within the major intracranial vessels appear maintained. No abnormal focus of enhancement is seen within the brain. ORBITS: The visualized portion of the orbits demonstrate no acute abnormality. SINUSES: Mild mucosal thickening in the maxillary sinuses bilaterally with some opacified ethmoid air cells. Otherwise the visualized paranasal sinuses and mastoid air cells demonstrate no acute abnormality. BONES/SOFT TISSUES: The bone marrow signal intensity appears normal. The soft tissues demonstrate no acute abnormality. Left parietal subcutaneous lesion, probably an epidermoid cyst. IMPRESSION: 1. No acute intracranial abnormality. 2. Minimal nonspecific white matter disease as may be seen in demyelination, microangiopathy or other causes. Interpreted by: Umair Pichardo Preliminary Report By: Umair Pichardo Electronically signed By Umair Pichardo Dictated Date: 07/18/2024 12:17:00 AM Prelim Date: 07/18/2024 12:23:34 AM Sign Date: 07/18/2024 12:23:34 AM Ordering Provider: KAYCEE Balbuena [facility] ([place]) [place] SPINE CERVICAL W/ + W/O CONTRASTon 07-18-2024 MRI SPINE CERVICAL W/ + W/O CONTRAST ORIGINAL EXAMINATION: MRI OF THE CERVICAL SPINE WITHOUT AND WITH CONTRAST 07/17/2024 4:27 pm: TECHNIQUE: Multiplanar multisequence MRI of the cervical spine was performed without and with the administration of intravenous contrast. COMPARISON: None. HISTORY: ORDERING SYSTEM PROVIDED HISTORY: Reason for Exam: MS workup FINDINGS: BONES/ALIGNMENT: There is normal alignment of the spine. The vertebral body heights are maintained. The bone marrow signal appears unremarkable. SPINAL CORD: No abnormal cord signal is seen. SOFT TISSUES: No abnormal enhancement of the cervical spine. No paraspinal mass identified. C2-C3: There is no significant disc protrusion, spinal canal stenosis or neural foraminal narrowing. C3-C4: There is no significant disc protrusion, spinal canal stenosis or neural foraminal narrowing. C4-C5: There is no significant disc protrusion, spinal canal stenosis or neural foraminal narrowing. C5-C6: There is no significant disc protrusion, spinal canal stenosis or neural foraminal narrowing. C6-C7: There is no significant disc protrusion, spinal canal stenosis or neural foraminal narrowing. C7-T1: There is no significant disc protrusion, spinal canal stenosis or neural foraminal narrowing. IMPRESSION: Unremarkable MRI examination of the cervical spine. No evidence of demyelinating disease in the cervical spinal cord. Interpreted by: Xavi Meredith Preliminary Report By: Xavi Meredith Electronically signed By Xavi Meredith Dictated Date: 07/18/2024 5:50:08 AM Prelim Date: 07/18/2024 5:52:16 AM Sign Date: 07/18/2024 5:52:16 AM Ordering Provider: KAYCEE ARAUJO [facility]) MRI SPINE THORACIC W/ + W/O CONTRASTon 07-18-2024 MRI SPINE THORACIC W/ + W/O CONTRAST ORIGINAL EXAMINATION: MRI OF THE THORACIC SPINE WITHOUT AND WITH CONTRAST 07/17/2024 4:27 pm TECHNIQUE: Multiplanar multisequence MRI of the thoracic spine was performed without and with the administration of intravenous contrast. COMPARISON: None HISTORY: ORDERING SYSTEM PROVIDED HISTORY: Reason for Exam: MS workup FINDINGS: BONES/ALIGNMENT: There is normal alignment of the spine. The vertebral body heights are maintained. The bone marrow signal appears unremarkable. SPINAL CORD: No abnormal cord signal is seen. There is a 7 mm central herniation of disc material contacting the cord and T11-T12. There is a 7 mm right paracentral herniation of disc material contacting the cord at T9-T10. SOFT TISSUES: No abnormal enhancement of the thoracic spine. No paraspinal mass identified. DEGENERATIVE CHANGES: No significant spinal canal stenosis or neural foraminal narrowing of the thoracic spine. IMPRESSION: No evidence of demyelinating disease in the thoracic spinal cord. Large right herniated disc T9-T10. Large central herniated disc T11-T12. Interpreted by: Xavi Meredith Preliminary Report By: Xavi Meredith Electronically signed By Xavi Meredith Dictated Date: 07/18/2024 5:52:32 AM Prelim Date: 07/18/2024 5:56:05 AM Sign Date: 07/18/2024 5:56:05 AM Ordering Provider: KAYCEE ARAUJO [facility] ([place]) .Auto Diffon 07-14-2024 Basophil, Absolute 0.1 10 3/mcL Normal 0.0-0.3 [facility] ([place]) Comment on above: Performed By: #### G FR, FT4, A1C, TSH, ADIFF, CMP, ANEU, LIPID, CBC ####[address] [address] Basophils/100 WBC (Bld) 0.6 % Normal 0.0-2.5 A [facility] ([place]) Comment on above: Performed By: #### G FR, FT4, A1C, TSH, ADIFF, CMP, ANEU, LIPID, CBC ####[address] [address] Eosinophil, Absolute 0.0 10 3/mcL Normal 0.0-0.7 [facility] ([place]) Comment on above: Performed By: #### G FR, FT4, A1C, TSH, ADIFF, CMP, ANEU, LIPID, CBC ####[address] [address] Eosinophils/100 WBC (Bld) 0.2 % Normal 0.0-6.0 [facility] ([place]) Comment on above: Performed By: #### G FR, FT4, A1C, TSH, ADIFF, CMP, ANEU, LIPID, CBC ####[address] [address] Lymphocyte, Absolute 2.3 10 3/mcL Normal 0.9-4.3 [facility] ([place]) Comment on above: Performed By: #### G FR, FT4, A1C, TSH, ADIFF, CMP, ANEU, LIPID, CBC ####[address] [address] Lymphocytes/100 WBC (Bld) 19.4 % Low 20.0-40.0 [facility] ([place]) Comment on above: Performed By: #### G FR, FT4, A1C, TSH, ADIFF, CMP, ANEU, LIPID, CBC ####[address] [address] Monocyte, Absolute 0.8 10 3/mcL Normal 0.1-1.4 [facility] ([place]) Comment on above: Performed By: #### G FR, FT4, A1C, TSH, ADIFF, CMP, ANEU, LIPID, CBC ####[place] [id number] [place] [address] Monocytes/100 WBC (Bld) 6.5 % Normal 2.0-13.0 A [facility] ([place]) Comment on above: Performed By: #### G FR, FT4, A1C, TSH, ADIFF, CMP, ANEU, LIPID, CBC ####[place] [id number] [place] [address] Neutrophils/100 WBC (Bld) 73.3 % Normal 50.0-75.0 [facility] ([place]) Comment on above: Performed By: #### G FR, FT4, A1C, TSH, ADIFF, CMP, ANEU, LIPID, CBC ####[address] [address] .GFRon 07-14-2024 GFR >60 Normal [facility] ([place]) Comment on above: Result Comment: GFR Population mean for , Non- Americans Ages 20-29 = 116 mL/min/1.73 sq.m. Ages 30-39 = 107 mL/min/1.73 sq.m. Ages 40-49 = 99 mL/min/1.73 sq.m. Ages 50-59 = 93 mL/min/1.73 sq.m. Ages 60-69 = 85 mL/min/1.73 sq.m. Ages 70+ = 75 mL/min/1.73 sq.m. Chronic Kidney Disease: Less than 60 mL/min/1.73 square meters End Stage Renal Disease: Less than 15 mL/min/1.73 square meters Performed By: #### G FR, FT4, A1C, TSH, ADIFF, CMP, ANEU, LIPID, CBC ####[address] [address] GFR Non- 50 ml/min/1.73sqm Normal [facility] ([place]) Comment on above: Result Comment: GFR Population mean for , Non- Americans Ages 20-29 = 116 mL/min/1.73 sq.m. Ages 30-39 = 107 mL/min/1.73 sq.m. Ages 40-49 = 99 mL/min/1.73 sq.m. Ages 50-59 = 93 mL/min/1.73 sq.m. Ages 60-69 = 85 mL/min/1.73 sq.m. Ages 70+ = 75 mL/min/1.73 sq.m. Chronic Kidney Disease: Less than 60 mL/min/1.73 square meters End Stage Renal Disease: Less than 15 mL/min/1.73 square meters Performed By: #### G FR, FT4, A1C, TSH, ADIFF, CMP, ANEU, LIPID, CBC ####[place] [address] .NEUABSon 07-14-2024 Neutrophil, Absolute 8.7 10 3/mcL High 2.3-8.1 [facility] ([place]) Comment on above: Performed By: #### G FR, FT4, A1C, TSH, ADIFF, CMP, ANEU, LIPID, CBC ####[place] [address] A1Con 07-14-2024 Glucose [Mass/Vol] 128 mg/dL Normal [facility] ([place]) Comment on above: Result Comment: Prema mated Average Glucose calculated by equation ((28.7xA1C)-46.7) Estimated average glucose (eAG) is a calculated value from Hemoglobin A1C and is bank representative of the average blood glucose level in the last 2-3 month period. Normal range: less than 114 mg/dL Performed By: #### G FR, FT4, A1C, TSH, ADIFF, CMP, ANEU, LIPID, CBC ####[place] [address] HbA1c (Bld) [Mass fraction] 6.1 % High 4.0-6.0 [facility] ([place]) Comment on above: Performed By: #### G FR, FT4, A1C, TSH, ADIFF, CMP, ANEU, LIPID, CBC ####[place] [address] CBCon 07-14-2024 Erythrocyte distribution width (RBC) [Ratio] 14.2 % Normal 11.5-15.5 [facility] ([place]) Comment on above: Performed By: #### G FR, FT4, A1C, TSH, ADIFF, CMP, ANEU, LIPID, CBC ####[place] [address] Hematocrit (Bld) [Volume fraction] 40.5 % Normal 34.0-46.0 [facility] ([place]) Comment on above: Performed By: #### G FR, FT4, A1C, TSH, ADIFF, CMP, ANEU, LIPID, CBC ####[place] [address] Hgb 13.5 G/dL Normal 12.0-16.0 [facility] ([place]) Comment on above: Performed By: #### G FR, FT4, A1C, TSH, ADIFF, CMP, ANEU, LIPID, CBC ####[place] [address] MCH (RBC) [Entitic mass] 29.6 pg Normal 27.0-33.0 [facility] ([place] Comment on above: Performed By: #### G FR, FT4, A1C, TSH, ADIFF, CMP, ANEU, LIPID, CBC ####[place] [address] MCHC 33.4 G/dL Normal 32.0-36.0 [facility] ([place] Comment on above: Performed By: #### G FR, FT4, A1C, TSH, ADIFF, CMP, ANEU, LIPID, CBC ####[place] [address] MCV (RBC) [Entitic vol] 88.5 fL Normal 80.0-99.0 [facility] ([place]) Comment on above: Performed By: #### G FR, FT4, A1C, TSH, ADIFF, CMP, ANEU, LIPID, CBC ####[place] [address] Platelet 259 10 3/mcL Normal 150-450 [facility] ([place]) Comment on above: Performed By: #### G FR, FT4, A1C, TSH, ADIFF, CMP, ANEU, LIPID, CBC ####[place] [address] Platelet mean volume (Bld) [Entitic vol] 9.2 fL Normal 6.6-10.5 [facility] ([place] Comment on above: Performed By: #### G FR, FT4, A1C, TSH, ADIFF, CMP, ANEU, LIPID, CBC ####[address] [address] RBC 4.58 10 6/mcL Normal 4.10-5.30 [facility] ([place] Comment on above: Performed By: #### G FR, FT4, A1C, TSH, ADIFF, CMP, ANEU, LIPID, CBC ####[place] [address] WBC 11.9 10 3/mcL High 4.5-10.8 [facility] ([place] Comment on above: Performed By: #### G FR, FT4, A1C, TSH, ADIFF, CMP, ANEU, LIPID, CBC ####[address] [address] CMPon 07-14-2024 Albumin Level 3.7 G/dL Normal 3.2-4.8 [facility] ([place]) Comment on above: Performed By: #### G FR, FT4, A1C, TSH, ADIFF, CMP, ANEU, LIPID, CBC ####[place] [address] Albumin/Globulin [Mass ratio] 1.1 {ratio} Normal 0.9-1.6 [facility] ([place]) Comment on above: Performed By: #### G FR, FT4, A1C, TSH, ADIFF, CMP, ANEU, LIPID, CBC ####[address] [address] ALP [Catalytic activity/Vol] 123 U/L Normal 38-126 [facility] ([place] Comment on above: Performed By: #### G FR, FT4, A1C, TSH, ADIFF, CMP, ANEU, LIPID, CBC ####[address] [address] ALT [Catalytic activity/Vol] 21 U/L Normal 10-49 [facility] ([place] Comment on above: Performed By: #### G FR, FT4, A1C, TSH, ADIFF, CMP, ANEU, LIPID, CBC ####[place] [address] AST [Catalytic activity/Vol] 12 U/L Normal 8-34 [facility] ([place] Comment on above: Performed By: #### G FR, FT4, A1C, TSH, ADIFF, CMP, ANEU, LIPID, CBC ####[place] [address] Bili Total 0.30 mg/dL Normal 0.20-1.20 [facility] ([place]) Comment on above: Result Comment: Use of this assay is not recommended for patients undergoing treatment with eltrombopag due to the potential for falsely elevated results. Performed By: #### G FR, FT4, A1C, TSH, ADIFF, CMP, ANEU, LIPID, CBC ####[place] [address] BUN/Creatinine Ratio 16.5 ratio Normal 10.0-22.0 [facility] ([place]) Comment on above: Performed By: #### G FR, FT4, A1C, TSH, ADIFF, CMP, ANEU, LIPID, CBC ####[place] [address] Calcium [Mass/Vol] 9.7 mg/dL Normal 8.7-10.4 [facility] ([place] Comment on above: Performed By: #### G FR, FT4, A1C, TSH, ADIFF, CMP, ANEU, LIPID, CBC ####[place] [address] Chloride [Moles/Vol] 105 mmol/L Normal 98-110 [facility] ([place] Comment on above: Performed By: #### G FR, FT4, A1C, TSH, ADIFF, CMP, ANEU, LIPID, CBC ####[place] [id number] CO2 [Moles/Vol] 25 mmol/L Normal 22-32 [facility] ([place] Comment on above: Performed By: #### G FR, FT4, A1C, TSH, ADIFF, CMP, ANEU, LIPID, CBC ####[place] [address] Creatinine [Mass/Vol] 1.15 mg/dL Normal 0.50-1.20 [facility] ([place]) Comment on above: Performed By: #### G FR, FT4, A1C, TSH, ADIFF, CMP, ANEU, LIPID, CBC ####[address] [address] Electrolyte Balance 7.0 mEq/L Normal 4.0-15.0 [facility] ([place]) Comment on above: Performed By: #### G FR, FT4, A1C, TSH, ADIFF, CMP, ANEU, LIPID, CBC ####[address] [address] Globulin 3.4 G/dL Normal 1.5-3.8 [facility] ([place]) Comment on above: Performed By: #### G FR, FT4, A1C, TSH, ADIFF, CMP, ANEU, LIPID, CBC ####[address] [address] Glucose [Mass/Vol] 168 mg/dL High 70-110 [facility] ([place] Comment on above: Performed By: #### G FR, FT4, A1C, TSH, ADIFF, CMP, ANEU, LIPID, CBC ####[address] [address] Potassium [Moles/Vol] 4.6 mmol/L Normal 3.5-5.0 [facility] ([place]) Comment on above: Performed By: #### G FR, FT4, A1C, TSH, ADIFF, CMP, ANEU, LIPID, CBC ####[address] [address] Sodium [Moles/Vol] 137 mmol/L Normal 136-145 [facility] ([place]) Comment on above: Performed By: #### G FR, FT4, A1C, TSH, ADIFF, CMP, ANEU, LIPID, CBC ####[place] [address] Total Protein 7.1 G/dL Normal 5.7-8.2 [facility] ([place]) Comment on above: Result Comment: No te - New Reference Range in effect 20 Performed By: #### G FR, FT4, A1C, TSH, ADIFF, CMP, ANEU, LIPID, CBC ####[address] [address] Urea nitrogen [Mass/Vol] 19.0 mg/dL Normal 8.0-22.0 [facility] ([place] Comment on above: Performed By: #### G FR, FT4, A1C, TSH, ADIFF, CMP, ANEU, LIPID, CBC ####[address] [address] FT4on 07-14-2024 Free T4 [Mass/Vol] 0.88 ng/dL Low 0.89-1.76 [facility] ([place]) Comment on above: Result Comment: No te - New Reference Range in effect 20 Performed By: #### G FR, FT4, A1C, TSH, ADIFF, CMP, ANEU, LIPID, CBC ####[address] [address] LIPIDon 07-14-2024 Cholesterol [Mass/Vol] 109 mg/dL Normal 50-199 [facility] ([place]) Comment on above: Result Comment: Chol esterol Reference Interval: Less than 200 Desirable 200-239 Borderline high risk 240 and above High risk Performed By: #### G FR, FT4, A1C, TSH, ADIFF, CMP, ANEU, LIPID, CBC ####[address] [address] Cholesterol in HDL [Mass/Vol] 45 mg/dL Normal 40-59 [facility] ([place]) Comment on above: Performed By: #### G FR, FT4, A1C, TSH, ADIFF, CMP, ANEU, LIPID, CBC ####[address] [address] Cholesterol in LDL [Mass/Vol] 23 mg/dL Normal 0-129 [facility] ([place]) Comment on above: Performed By: #### G FR, FT4, A1C, TSH, ADIFF, CMP, ANEU, LIPID, CBC ####[address] [address] Triglyceride [Mass/Vol] 204 mg/dL High 3-149 A [facility] ([place]) Comment on above: Performed By: #### G FR, FT4, A1C, TSH, ADIFF, CMP, ANEU, LIPID, CBC ####[place] [id number] [place] [address] TSHon 07-14-2024 TSH 1.419 mIU/mL Normal 0.550-4.780 [facility] ([place]) Comment on above: Result Comment: No te - New Reference Range in effect 20 Performed By: #### G FR, FT4, A1C, TSH, ADIFF, CMP, ANEU, LIPID, CBC ####[place] [id number] [place] [address] MRI SPINE LUMBAR W/ + W/O CO NTRASTon 07-04-2024 MRI SPINE LUMBAR W/ + W/O CONTRAST ORIGINAL EXAMINATION: MRI OF THE LUMBAR SPINE WITHOUT AND WITH CONTRAST 07/03/2024 4:56 pm TECHNIQUE: Multiplanar multisequence MRI of the lumbar spine was performed without and with the administration of intravenous contrast. COMPARISON: None. HISTORY: ORDERING SYSTEM PROVIDED HISTORY: Reason for Exam: s/p right L4-L5 laminectomy with partial medial facetectomy and foraminotomy with Dr. Olmstead on 04/24/2024. Continued RLE weakness. New onset left foot drop FINDINGS: BONES/ALIGNMENT: There is normal alignment of the spine. Status post L4-5 laminectomy. SPINAL CORD: The conus terminates normally. SOFT TISSUES: Postoperative in Radha mint is noted posterior to L5-S1. 19 mm seroma in the posterior left subcutaneous fat. T12-L1: Large left herniated disc with an AP extent of 10 mm in transverse extent 13 mm unchanged from the comparison examination. L1-L2: There is no significant disc protrusion, spinal canal stenosis or neural foraminal narrowing. L2-L3: There is no significant disc protrusion, spinal canal stenosis or neural foraminal narrowing. L3-L4: There is no significant disc protrusion, spinal canal stenosis or neural foraminal narrowing. L4-L5: Status post laminectomy and partial right medial facetectomy. Postoperative enhancement is demonstrated. No epidural fluid collection or complication is identified. Moderate right bony foraminal narrowing. L5-S1: There is no significant disc protrusion, spinal canal stenosis or neural foraminal narrowing. Hypertrophic facet arthropathy. IMPRESSION: Laminectomy L4-L5, no complication is identified. Moderate right bony foraminal narrowing L4-L5 from spur formation. Large left paracentral herniated disc T12-L1. Interpreted by: Xavi Meredith Preliminary Report By: Xavi Meredith Electronically signed By Xavi Meredith Dictated Date: 07/04/2024 5:55:41 AM Prelim Date: 07/04/2024 6:14:04 AM Sign Date: 07/04/2024 6:14:04 AM Ordering Provider: BRITTANY Balbuena [facility] ([place]) [place] MAMMOGRAM SCREENING BILAT ERAL W/TOMOon 06-30-2024 MA MAMMOGRAM SCREENING BILATERAL W/WALDO ORIGINAL FROM: [address] [address] PROCEDURE FOR: APRIL K. RIGOBERTO [address] [place] [address] Home: PID#: [id number] Exam#: [id number] : 1975 Age: 49 TO: KAYCEE ARAUJO DO [address] [place], [place] [address] Fax: NO FAX EXAMINATION: SCREENING DIGITAL BILATERAL MAMMOGRAM WITH TOMOSYNTHESIS, 06/30/2024 5:13 pm TECHNIQUE: Screening mammography of the bilateral breasts was performed with tomosynthesis. 2D standard and 3D tomosynthesis combination imaging performed through both breasts in the MLO and CC projection. Computer aided detection was utilized in the interpretation of this exam. COMPARISON: None. HISTORY: Breast cancer screening. FINDINGS: BREAST DENSITY: The breasts are almost entirely fatty. There are benign appearing calcifications in both breasts. There are no significant masses or calcifications. IMPRESSION: No mammographic evidence of malignancy. Continued screening with annual mammograms is recommended. Rachael Jo risk calculations, generated with the history provided, report this patient's 10 year risk and lifetime risk for developing breast cancer at 1.8% and 8.5%, respectively. Based on this assessment tool, if the patient's calculated lifetime risk is below 20%, then the patient is considered at average risk for developing breast cancer. If the patient's calculated lifetime risk is at or above 20%, then the patient is considered high risk for developing breast cancer and may be a candidate for supplemental breast MRI screening in addition to annual mammographic screening per the [employer]. BIRADS: BI-RADS: 2: Benign RECALL: 1 year screening RECALL TYPE: mammo LETTER SENT: Normal BI-RADS 1 and 2 Interpreted by: Krista Colvin MD Preliminary Report By: Krista Colvin MD Electronically signed By Krista Colvin MD Dictated Date: 06/30/2024 6:34:14 PM Prelim Date: 06/30/2024 6:36:51 PM Sign Date: 06/30/2024 6:36:51 PM Ordering Provider: KAYCEE ARAUJO CLINICAL: BASELINE BASELINE. Automobile Repossessor: CHANA ZHENG RT(R)(M) letter sent: Normal BI-RADS 1 and 2 Mammogram BI-RADS: 2 Benign Normal [facility] ([place]) LABORATORYOrdered By: SYSTEM SYSTEM on 06-18-2024 Platelets (Bld) [#/Vol] 219 103/mcL Normal 150 - 450 10^3/mcL Workflow SS PT Coag (PPP) [Time] 10.5 s Normal 9.0 - 1 4.4 seconds [facility] SS Comment on above: Interpretive Data: E ffective 06/02/08, Protime results may be affected by some antibiotics (i.e. Ciprofloxacin, Azithromycin, Bactrim) which may potentiate the action of oral anticoagulants, with further increases in Protime/INR. PT International Ratio 0.9 ratio Invalid Interpretation Code [facility] SS Comment on above: Interpretive Data: Guillermina garza [employer] (CHEST, 1992, 102:[id number]) recommended therapeutic range for oral anticoagulant therapy is: LOW RISK: Prophylaxis of venous thrombosis INR: 2.0-3.0 Treatment of pulmonary embolism 2.0-3.0 Prevention of systemic embolism 2.0-3.0 HIGH RISK: Mechanical prosthetic valves 2.5-3.5 PLTon 06-18-2024 Platelet 219 10 3/mcL Normal 150-450 [facility] ([place]) Comment on above: Performed By: #### U A #### [place] [address] PROon 06-18-2024 INR Coag (PPP) [Relative time] 0.9 {INR} Normal [facility] ([place]) Comment on above: Result Comment: [employer] (CHEST, 1992, 102:[id number]) recommended therapeutic range for oral anticoagulant therapy is: LOW RISK: Prophylaxis of venous thrombosis INR: 2.0-3.0 Treatment of pulmonary embolism 2.0-3.0 Prevention of systemic embolism 2.0-3.0 HIGH RISK: Mechanical prosthetic valves 2.5-3.5 Performed By: #### U A #### [address] [address] PT Coag (PPP) [Time] 10.5 s Normal 9.0-14.4 [facility] ([place]) Comment on above: Result Comment: Effe ctive 06/02/08, Protime results may be affected by some antibiotics (i.e. Ciprofloxacin, Azithromycin, Bactrim) which may potentiate the action of oral anticoagulants, with further increases in Protime/INR. Performed By: #### U A #### [address] [address] .Auto Diffon 04-26-2024 Basophil, Absolute 0.1 10 3/mcL Normal 0.0-0.3 [facility] ([place]) Comment on above: Performed By: #### A KIAH, GFR, ADIFF, BMP, CBC ####[address] [address] Basophils/100 WBC (Bld) 0.6 % Normal 0.0-2.5 A [facility] ([place]) Comment on above: Performed By: #### A KIAH, GFR, ADIFF, BMP, CBC ####[address] [address] Eosinophil, Absolute 0.1 10 3/mcL Normal 0.0-0.7 [facility] ([place]) Comment on above: Performed By: #### A KIAH, GFR, ADIFF, BMP, CBC ####[address] [address] Eosinophils/100 WBC (Bld) 1.1 % Normal 0.0-6.0 [facility] ([place] Comment on above: Performed By: #### A KIAH, GFR, ADIFF, BMP, CBC ####[address] [address] Lymphocyte, Absolute 3.1 10 3/mcL Normal 0.9-4.3 [facility] ([place]) Comment on above: Performed By: #### A KIAH, GFR, ADIFF, BMP, CBC ####[address] [address] Lymphocytes/100 WBC (Bld) 33.4 % Normal 20.0-40.0 [facility] ([place] Comment on above: Performed By: #### A KIAH, GFR, ADIFF, BMP, CBC ####[address] [address] Monocyte, Absolute 0.9 10 3/mcL Normal 0.1-1.4 [facility] ([place] Comment on above: Performed By: #### A KIAH, GFR, ADIFF, BMP, CBC ####[address] [address] Monocytes/100 WBC (Bld) 9.3 % Normal 2.0-13.0 A [facility] ([place]) Comment on above: Performed By: #### A KIAH, GFR, ADIFF, BMP, CBC ####[address] [address] Neutrophils/100 WBC (Bld) 55.6 % Normal 50.0-75.0 [facility] ([place] Comment on above: Performed By: #### A KIAH, GFR, ADIFF, BMP, CBC ####[address] [address] .GFRon 04-26-2024 GFR >60 Normal [facility] ([place]) Comment on above: Result Comment: GFR Population mean for , Non- Americans Ages 20-29 = 116 mL/min/1.73 sq.m. Ages 30-39 = 107 mL/min/1.73 sq.m. Ages 40-49 = 99 mL/min/1.73 sq.m. Ages 50-59 = 93 mL/min/1.73 sq.m. Ages 60-69 = 85 mL/min/1.73 sq.m. Ages 70+ = 75 mL/min/1.73 sq.m. Chronic Kidney Disease: Less than 60 mL/min/1.73 square meters End Stage Renal Disease: Less than 15 mL/min/1.73 square meters Performed By: #### A KIAH, GFR, ADIFF, BMP, CBC ####[address] [address] GFR Non- >60 Normal [facility] ([place] Comment on above: Result Comment: GFR Population mean for , Non- Americans Ages 20-29 = 116 mL/min/1.73 sq.m. Ages 30-39 = 107 mL/min/1.73 sq.m. Ages 40-49 = 99 mL/min/1.73 sq.m. Ages 50-59 = 93 mL/min/1.73 sq.m. Ages 60-69 = 85 mL/min/1.73 sq.m. Ages 70+ = 75 mL/min/1.73 sq.m. Chronic Kidney Disease: Less than 60 mL/min/1.73 square meters End Stage Renal Disease: Less than 15 mL/min/1.73 square meters Performed By: #### A KIAH, GFR, ADIFF, BMP, CBC ####[place] [address] .NEUABSon 04-26-2024 Neutrophil, Absolute 5.1 10 3/mcL Normal 2.3-8.1 [facility] ([place]) Comment on above: Performed By: #### A KIAH, GFR, ADIFF, BMP, CBC ####[place] [address] BMPon 04-26-2024 BUN/Creatinine Ratio 16.1 ratio Normal 10.0-22.0 [facility] ([place] Comment on above: Performed By: #### A KIAH, GFR, ADIFF, BMP, CBC ####[place] [address] Calcium [Mass/Vol] 8.5 mg/dL Low 8.7-10.4 [facility] ([place]) Comment on above: Performed By: #### A KIAH, GFR, ADIFF, BMP, CBC ####[address] [address] Chloride [Moles/Vol] 108 mmol/L Normal 98-110 [facility] ([place] Comment on above: Performed By: #### A KIAH, GFR, ADIFF, BMP, CBC ####[address] [address] CO2 [Moles/Vol] 24 mmol/L Normal 22-32 [facility] ([place] Comment on above: Performed By: #### A KIAH, GFR, ADIFF, BMP, CBC ####[address] [address] Creatinine [Mass/Vol] 0.93 mg/dL Normal 0.50-1.20 [facility] ([place]) Comment on above: Performed By: #### A KIAH, GFR, ADIFF, BMP, CBC ####[address] [address] Electrolyte Balance 9.0 mEq/L Normal 4.0-15.0 [facility] ([place]) Comment on above: Performed By: #### A KIAH, GFR, ADIFF, BMP, CBC ####[address] [address] Glucose [Mass/Vol] 110 mg/dL Normal 70-110 [facility] ([place] Comment on above: Performed By: #### A KIAH, GFR, ADIFF, BMP, CBC ####[address] [address] Potassium [Moles/Vol] 4.4 mmol/L Normal 3.5-5.0 [facility] ([place]) Comment on above: Performed By: #### A KIAH, GFR, ADIFF, BMP, CBC ####[address] [address] Sodium [Moles/Vol] 141 mmol/L Normal 136-145 [facility] ([place] Comment on above: Performed By: #### A KIAH, GFR, ADIFF, BMP, CBC ####[address] [address] Urea nitrogen [Mass/Vol] 15.0 mg/dL Normal 8.0-22.0 [facility] ([place]) Comment on above: Performed By: #### A KIAH, GFR, ADIFF, BMP, CBC ####[place] [address] CBCon 04-26-2024 Erythrocyte distribution width (RBC) [Ratio] 13.5 % Normal 11.5-15.5 [facility] ([place] Comment on above: Performed By: #### A KIAH, GFR, ADIFF, BMP, CBC ####[place] [address] Hematocrit (Bld) [Volume fraction] 34.2 % Normal 34.0-46.0 [facility] ([place] Comment on above: Performed By: #### A KIAH, GFR, ADIFF, BMP, CBC ####[place] [address] Hgb 11.9 G/dL Low 12.0-16.0 [facility] ([place] Comment on above: Performed By: #### A KIAH, GFR, ADIFF, BMP, CBC ####[place] [address] MCH (RBC) [Entitic mass] 31.3 pg Normal 27.0-33.0 [facility] ([place] Comment on above: Performed By: #### A KIAH, GFR, ADIFF, BMP, CBC ####[place] [address] MCHC 34.8 G/dL Normal 32.0-36.0 [facility] ([place] Comment on above: Performed By: #### A KIAH, GFR, ADIFF, BMP, CBC ####[place] [address] MCV (RBC) [Entitic vol] 89.8 fL Normal 80.0-99.0 A [facility] ([place] Comment on above: Performed By: #### A KIAH, GFR, ADIFF, BMP, CBC ####[place] [address] Platelet 179 10 3/mcL Normal 150-450 [facility] ([place] Comment on above: Performed By: #### A KIAH, GFR, ADIFF, BMP, CBC ####[address] [address] Platelet mean volume (Bld) [Entitic vol] 8.6 fL Normal 6.6-10.5 [facility] ([place] Comment on above: Performed By: #### A KIAH, GFR, ADIFF, BMP, CBC ####[place] [address] RBC 3.81 10 6/mcL Low 4.10-5.30 [facility] ([place] Comment on above: Performed By: #### A KIAH, GFR, ADIFF, BMP, CBC ####[address] [address] WBC 9.2 10 3/mcL Normal 4.5-10.8 [facility] ([place] Comment on above: Performed By: #### A KIAH, GFR, ADIFF, BMP, CBC ####[place] [address] LABORATORYOrdered By: Katie Long on 04-26-2024 Blood Glucose Testing Reason Routine (04/26/24 4:26 PM) [facility] Work Phone: Glucose [Mass/Vol] 115 mg/dL High 70 - 110 mg/dL [facility] Work Phone: LABORATORYOrdered By: Isacc Villanueva on 04-26-2024 Blood Glucose Testing Reason Routine (04/26/24 11:40 AM) [facility] Work Phone: Glucose [Mass/Vol] 108 mg/dL Normal 70 - 110 mg/dL [facility] Work Phone: Blood Glucose Testing Reason Routine (04/26/24 7:36 AM) [facility] Work Phone: Glucose [Mass/Vol] 137 mg/dL High 70 - 110 mg/dL [facility] Work Phone: LABORATORYOrdered By: SYSTEM SYSTEM on 04-26-2024 Basophils (Bld) [#/Vol] 0.1 103/mcL Normal 0.0 - 0.3 10^3/mcL AH Workflow SS Basophils/100 WBC (Bld) 0.6 % Normal 0.0 - 2.5 % AH Workflow SS Calcium [Mass/Vol] 8.5 mg/dL Low 8.7 - 10. 4 mg/dL ADM SS Chloride [Moles/Vol] 108 mmol/L Normal 98 - 11 0 mEq/L ADM SS CO2 [Moles/Vol] 24 mmol/L Normal 22 - 32 mEq/L ADM SS Creatinine [Mass/Vol] 0.93 mg/dL Normal 0.50 - 1.20 mg/dL ADM SS Electrolyte Balance 9.0 mEq/L Normal 4.0 - 15 .0 mEq/L ADM SS Eosinophils (Bld) [#/Vol] 0.1 103/mcL Normal 0. 0 - 0.7 10^3/mcL Workflow SS Eosinophils/100 WBC (Bld) 1.1 % Normal 0.0 - 6.0 % Workflow SS Erythrocyte distribution width (RBC) [Ratio] 13.5 % Normal 11.5 - 15.5 % Workflow SS GFR/1.73 sq M.predicted among blacks MDRD (S/P/Bld) [Vol rate/Area] ml/min/1.73sqm Invalid Interpretation Code [facility] Chemistry S Comment on above: Interpretive Data: GFR Population mean for , Non- Americans Ages 20-29 = 116 mL/min/1.73 sq.m. Ages 30-39 = 107 mL/min/1.73 sq.m. Ages 40-49 = 99 mL/min/1.73 sq.m. Ages 50-59 = 93 mL/min/1.73 sq.m. Ages 60-69 = 85 mL/min/1.73 sq.m. Ages 70+ = 75 mL/min/1.73 sq.m. Chronic Kidney Disease: Less than 60 mL/min/1.73 square meters End Stage Renal Disease: Less than 15 mL/min/1.73 square meters GFR/1.73 sq M.predicted among non-blacks MDRD (S/P/Bld) [Vol rate/Area] ml/min/1.73sqm Invalid Interpretation Code [facility] Chemistry S Comment on above: Interpretive Data: GFR Population mean for , Non- Americans Ages 20-29 = 116 mL/min/1.73 sq.m. Ages 30-39 = 107 mL/min/1.73 sq.m. Ages 40-49 = 99 mL/min/1.73 sq.m. Ages 50-59 = 93 mL/min/1.73 sq.m. Ages 60-69 = 85 mL/min/1.73 sq.m. Ages 70+ = 75 mL/min/1.73 sq.m. Chronic Kidney Disease: Less than 60 mL/min/1.73 square meters End Stage Renal Disease: Less than 15 mL/min/1.73 square meters Glucose [Mass/Vol] 110 mg/dL Normal 70 - 110 mg/dL AH ADM SS Hematocrit (Bld) [Volume fraction] 34.2 % Normal 34.0 - 46.0 % AH Workflow SS Hemoglobin (Bld) [Mass/Vol] 11.9 G/dL Low 12.0 - 16.0 G/dL AH Workflow SS Lymphocytes (Bld) [#/Vol] 3.1 103/mcL Normal 0. 9 - 4.3 10^3/mcL AH Workflow SS Lymphocytes/100 WBC (Bld) 33.4 % Normal 20 .0 - 40.0 % AH Workflow SS MCH (RBC) [Entitic mass] 31.3 pg Normal 27. 0 - 33.0 pg AH Workflow SS MCHC 34.8 G/dL Normal 32.0 - 36.0 G/dL AH Workflow SS MCV (RBC) [Entitic vol] 89.8 fL Normal 80.0 - 99.0 fL AH Workflow SS Monocytes (Bld) [#/Vol] 0.9 103/mcL Normal 0.1 - 1.4 10^3/mcL AH Workflow SS Monocytes/100 WBC (Bld) 9.3 % Normal 2.0 - 13.0 % AH Workflow SS Neutrophils (Bld) [#/Vol] 5.1 103/mcL Normal 2. 3 - 8.1 10^3/mcL AH Workflow SS Neutrophils/100 WBC (Bld) 55.6 % Normal 50 .0 - 75.0 % AH Workflow SS Platelet mean volume (Bld) [Entitic vol] 8.6 fL Normal 6.6 - 10.5 fL AH Workflow SS Platelets (Bld) [#/Vol] 179 103/mcL Normal 150 - 450 10^3/mcL AH Workflow SS Potassium [Moles/Vol] 4.4 mmol/L Normal 3.5 - 5.0 mEq/L ADM SS RBC (Bld) [#/Vol] 3.81 106/mcL Low 4.10 - 5.3 0 10^6/mcL AH Workflow SS Sodium [Moles/Vol] 141 mmol/L Normal 136 - 145 mEq/L ADM SS Urea nitrogen [Mass/Vol] 15.0 mg/dL Normal 8.0 - 22.0 mg/dL ADM SS Urea nitrogen/Creatinine [Mass ratio] 16.1 ratio Normal 10.0 - 22.0 ratio AH ADM SS WBC (Bld) [#/Vol] 9.2 103/mcL Normal 4.5 - 10.8 10^3/mcL Workflow SS .Auto Diffon 04-25-2024 Basophil, Absolute 0.0 10 3/mcL Normal 0.0-0.3 [facility] ([place] Comment on above: Performed By: #### B MP, GFR #### [address] [address] Basophils/100 WBC (Bld) 0.1 % Normal 0.0-2.5 A [facility] ([place]) Comment on above: Performed By: #### B MP, GFR #### [address] [address] Eosinophil, Absolute 0.0 10 3/mcL Normal 0.0-0.7 [facility] ([place]) Comment on above: Performed By: #### B MP, GFR #### [address] [address] Eosinophils/100 WBC (Bld) 0.0 % Normal 0.0-6.0 [facility] ([place] Comment on above: Performed By: #### B MP, GFR #### [address] [address] Lymphocyte, Absolute 1.3 10 3/mcL Normal 0.9-4.3 [facility] ([place] Comment on above: Performed By: #### B MP, GFR #### [address] [address] Lymphocytes/100 WBC (Bld) 9.3 % Low 20.0-40.0 [facility] ([place] Comment on above: Performed By: #### B MP, GFR #### [address] [address] Monocyte, Absolute 0.8 10 3/mcL Normal 0.1-1.4 [facility] ([place] Comment on above: Performed By: #### B MP, GFR #### [address] [address] Monocytes/100 WBC (Bld) 6.1 % Normal 2.0-13.0 A [facility] ([place]) Comment on above: Performed By: #### B MP, GFR #### [address] [address] Neutrophils/100 WBC (Bld) 84.5 % High 50.0-75.0 [facility] ([place] Comment on above: Performed By: #### B MP, GFR #### [address] [address] .GFRon 04-25-2024 GFR >60 Normal [facility] ([place] Comment on above: Result Comment: GFR Population mean for , Non- Americans Ages 20-29 = 116 mL/min/1.73 sq.m. Ages 30-39 = 107 mL/min/1.73 sq.m. Ages 40-49 = 99 mL/min/1.73 sq.m. Ages 50-59 = 93 mL/min/1.73 sq.m. Ages 60-69 = 85 mL/min/1.73 sq.m. Ages 70+ = 75 mL/min/1.73 sq.m. Chronic Kidney Disease: Less than 60 mL/min/1.73 square meters End Stage Renal Disease: Less than 15 mL/min/1.73 square meters Performed By: #### U A #### [address] [address] GFR Non- 51 ml/min/1.73sqm Normal [facility] ([place] Comment on above: Result Comment: GFR Population mean for , Non- Americans Ages 20-29 = 116 mL/min/1.73 sq.m. Ages 30-39 = 107 mL/min/1.73 sq.m. Ages 40-49 = 99 mL/min/1.73 sq.m. Ages 50-59 = 93 mL/min/1.73 sq.m. Ages 60-69 = 85 mL/min/1.73 sq.m. Ages 70+ = 75 mL/min/1.73 sq.m. Chronic Kidney Disease: Less than 60 mL/min/1.73 square meters End Stage Renal Disease: Less than 15 mL/min/1.73 square meters Performed By: #### U A #### [address] [address] .NEUABSon 04-25-2024 Neutrophil, Absolute 11.4 10 3/mcL High 2.3-8.1 A [facility] ([place] Comment on above: Performed By: #### B MP, GFR #### [address] [address] BMPon 04-25-2024 BUN/Creatinine Ratio 14.0 ratio Normal 10.0-22.0 [facility] ([place] Comment on above: Performed By: #### B MP, GFR #### [address] [address] Calcium [Mass/Vol] 9.2 mg/dL Normal 8.7-10.4 [facility] ([place] Comment on above: Performed By: #### B MP, GFR #### [address] [address] Chloride [Moles/Vol] 105 mmol/L Normal 98-110 [facility] ([place] Comment on above: Performed By: #### B MP, GFR #### [address] [address] CO2 [Moles/Vol] 28 mmol/L Normal 22-32 [facility] ([place] Comment on above: Performed By: #### B MP, GFR #### [address] [address] Creatinine [Mass/Vol] 1.14 mg/dL Normal 0.50-1.20 [facility] ([place] Comment on above: Performed By: #### B MP, GFR #### [address] [address] Electrolyte Balance 4.0 mEq/L Normal 4.0-15.0 [facility] ([place] Comment on above: Performed By: #### B MP, GFR #### [address] [address] Glucose [Mass/Vol] 163 mg/dL High 70-110 [facility] ([place] Comment on above: Performed By: #### B MP, GFR #### [address] [address] Potassium [Moles/Vol] 4.1 mmol/L Normal 3.5-5.0 [facility] ([place] Comment on above: Performed By: #### B MP, GFR #### [address] [address] Sodium [Moles/Vol] 137 mmol/L Normal 136-145 [facility] ([place] Comment on above: Performed By: #### B MP, GFR #### [address] [address] Urea nitrogen [Mass/Vol] 16.0 mg/dL Normal 8.0-22.0 [facility] ([place] Comment on above: Performed By: #### B MP, GFR #### [address] [address] CBCon 04-25-2024 Erythrocyte distribution width (RBC) [Ratio] 13.4 % Normal 11.5-15.5 [facility] ([place] Comment on above: Performed By: #### B MP, GFR #### [address] [address] Hematocrit (Bld) [Volume fraction] 38.4 % Normal 34.0-46.0 [facility] ([place] Comment on above: Performed By: #### B MP, GFR #### [address] [address] Hgb 13.1 G/dL Normal 12.0-16.0 [facility] ([place] Comment on above: Performed By: #### B MP, GFR #### [address] [address] MCH (RBC) [Entitic mass] 30.4 pg Normal 27.0-33.0 [facility] ([place] Comment on above: Performed By: #### B MP, GFR #### [place] [address] MCHC 34.3 G/dL Normal 32.0-36.0 [facility] ([place] Comment on above: Performed By: #### B MP, GFR #### [place] [address] MCV (RBC) [Entitic vol] 88.6 fL Normal 80.0-99.0 A [facility] ([place] Comment on above: Performed By: #### B CHRISTOPHER, GFR #### [place] [address] Platelet 194 10 3/mcL Normal 150-450 [facility] ([place] Comment on above: Performed By: #### B CHRISTOPHER, GFR #### [place] [address] Platelet mean volume (Bld) [Entitic vol] 8.8 fL Normal 6.6-10.5 [facility] ([place] Comment on above: Performed By: #### B CHRISTOPHER, GFR #### [place] [address] RBC 4.33 10 6/mcL Normal 4.10-5.30 [facility] ([place] Comment on above: Performed By: #### B MP, GFR #### [place] [address] WBC 13.5 10 3/mcL High 4.5-10.8 [facility] ([place] Comment on above: Performed By: #### B MP, GFR #### [place] [address] LABORATORYOrdered By: SYSTEM SYSTEM on 04-25-2024 Basophils (Bld) [#/Vol] 0.0 103/mcL Normal 0.0 - 0.3 10^3/mcL AH Workflow SS Basophils/100 WBC (Bld) 0.1 % Normal 0.0 - 2.5 % AH Workflow SS Calcium [Mass/Vol] 9.2 mg/dL Normal 8.7 - 10. 4 mg/dL ADM SS Chloride [Moles/Vol] 105 mmol/L Normal 98 - 11 0 mEq/L ADM SS CO2 [Moles/Vol] 28 mmol/L Normal 22 - 32 mEq/L ADM SS Creatinine [Mass/Vol] 1.14 mg/dL Normal 0.50 - 1.20 mg/dL ADM SS Electrolyte Balance 4.0 mEq/L Normal 4.0 - 15 .0 mEq/L ADM SS Eosinophils (Bld) [#/Vol] 0.0 103/mcL Normal 0. 0 - 0.7 10^3/mcL Workflow SS Eosinophils/100 WBC (Bld) 0.0 % Normal 0.0 - 6.0 % Workflow SS Erythrocyte distribution width (RBC) [Ratio] 13.4 % Normal 11.5 - 15.5 % Workflow SS GFR/1.73 sq M.predicted among blacks MDRD (S/P/Bld) [Vol rate/Area] ml/min/1.73sqm Invalid Interpretation Code [employer] Chemistry S Comment on above: Interpretive Data: GFR Population mean for , Non- Americans Ages 20-29 = 116 mL/min/1.73 sq.m. Ages 30-39 = 107 mL/min/1.73 sq.m. Ages 40-49 = 99 mL/min/1.73 sq.m. Ages 50-59 = 93 mL/min/1.73 sq.m. Ages 60-69 = 85 mL/min/1.73 sq.m. Ages 70+ = 75 mL/min/1.73 sq.m. Chronic Kidney Disease: Less than 60 mL/min/1.73 square meters End Stage Renal Disease: Less than 15 mL/min/1.73 square meters GFR/1.73 sq M.predicted among non-blacks MDRD (S/P/Bld) [Vol rate/Area] 51 ml/min/1.73sqm Invalid Interpretation Code [employer] Chemistry S Comment on above: Interpretive Data: GFR Population mean for , Non- Americans Ages 20-29 = 116 mL/min/1.73 sq.m. Ages 30-39 = 107 mL/min/1.73 sq.m. Ages 40-49 = 99 mL/min/1.73 sq.m. Ages 50-59 = 93 mL/min/1.73 sq.m. Ages 60-69 = 85 mL/min/1.73 sq.m. Ages 70+ = 75 mL/min/1.73 sq.m. Chronic Kidney Disease: Less than 60 mL/min/1.73 square meters End Stage Renal Disease: Less than 15 mL/min/1.73 square meters Glucose [Mass/Vol] 163 mg/dL High 70 - 110 mg/dL AH ADM SS Hematocrit (Bld) [Volume fraction] 38.4 % Normal 34.0 - 46.0 % AH Workflow SS Hemoglobin (Bld) [Mass/Vol] 13.1 G/dL Normal 12.0 - 16.0 G/dL AH Workflow SS Lymphocytes (Bld) [#/Vol] 1.3 103/mcL Normal 0. 9 - 4.3 10^3/mcL AH Workflow SS Lymphocytes/100 WBC (Bld) 9.3 % Low 20 .0 - 40.0 % AH Workflow SS MCH (RBC) [Entitic mass] 30.4 pg Normal 27. 0 - 33.0 pg AH Workflow SS MCHC 34.3 G/dL Normal 32.0 - 36.0 G/dL AH Workflow SS MCV (RBC) [Entitic vol] 88.6 fL Normal 80.0 - 99.0 fL AH Workflow SS Monocytes (Bld) [#/Vol] 0.8 103/mcL Normal 0.1 - 1.4 10^3/mcL AH Workflow SS Monocytes/100 WBC (Bld) 6.1 % Normal 2.0 - 13.0 % AH Workflow SS Neutrophils (Bld) [#/Vol] 11.4 103/mcL High 2. 3 - 8.1 10^3/mcL AH Workflow SS Neutrophils/100 WBC (Bld) 84.5 % High 50 .0 - 75.0 % AH Workflow SS Platelet mean volume (Bld) [Entitic vol] 8.8 fL Normal 6.6 - 10.5 fL AH Workflow SS Platelets (Bld) [#/Vol] 194 103/mcL Normal 150 - 450 10^3/mcL AH Workflow SS Potassium [Moles/Vol] 4.1 mmol/L Normal 3.5 - 5.0 mEq/L AH ADM SS RBC (Bld) [#/Vol] 4.33 106/mcL Normal 4.10 - 5.3 0 10^6/mcL AH Workflow SS Sodium [Moles/Vol] 137 mmol/L Normal 136 - 145 mEq/L AH ADM SS Urea nitrogen [Mass/Vol] 16.0 mg/dL Normal 8.0 - 22.0 mg/dL AH ADM SS Urea nitrogen/Creatinine [Mass ratio] 14.0 ratio Normal 10.0 - 22.0 ratio AH ADM SS WBC (Bld) [#/Vol] 13.5 103/mcL High 4.5 - 10.8 10^3/mcL Workflow SS .Auto Diffon 04-24-2024 Basophil, Absolute 0.1 10 3/mcL Normal 0.0-0.3 [facility] ([place] Comment on above: Performed By: #### B MP, GFR #### [address] [address] Basophils/100 WBC (Bld) 0.6 % Normal 0.0-2.5 A [facility] ([place]) Comment on above: Performed By: #### B MP, GFR #### [address] [address] Eosinophil, Absolute 0.1 10 3/mcL Normal 0.0-0.7 [facility] ([place]) Comment on above: Performed By: #### B MP, GFR #### [address] [address] Eosinophils/100 WBC (Bld) 1.5 % Normal 0.0-6.0 [facility] ([place]) Comment on above: Performed By: #### B MP, GFR #### [address] [id number] Lymphocyte, Absolute 3.1 10 3/mcL Normal 0.9-4.3 [facility] ([place]) Comment on above: Performed By: #### B MP, GFR #### [address] [id number] Lymphocytes/100 WBC (Bld) 38.0 % Normal 20.0-40.0 [facility] ([place]) Comment on above: Performed By: #### B MP, GFR #### [address] [id number] Monocyte, Absolute 0.7 10 3/mcL Normal 0.1-1.4 [facility] ([place]) Comment on above: Performed By: #### B MP, GFR #### [address] [address] Monocytes/100 WBC (Bld) 8.2 % Normal 2.0-13.0 A [facility] ([place]) Comment on above: Performed By: #### B MP, GFR #### [address] [address] Neutrophils/100 WBC (Bld) 51.7 % Normal 50.0-75.0 [facility] ([place]) Comment on above: Performed By: #### B MP, GFR #### [address] [address] .GFRon 04-24-2024 GFR Non- 54 ml/min/1.73sqm Normal [facility] ([place]) Comment on above: Result Comment: GFR Population mean for , Non- Americans Ages 20-29 = 116 mL/min/1.73 sq.m. Ages 30-39 = 107 mL/min/1.73 sq.m. Ages 40-49 = 99 mL/min/1.73 sq.m. Ages 50-59 = 93 mL/min/1.73 sq.m. Ages 60-69 = 85 mL/min/1.73 sq.m. Ages 70+ = 75 mL/min/1.73 sq.m. Chronic Kidney Disease: Less than 60 mL/min/1.73 square meters End Stage Renal Disease: Less than 15 mL/min/1.73 square meters Performed By: #### B MP, GFR #### [address] [address] GFR >60 Normal [facility] ([place]) Comment on above: Result Comment: GFR Population mean for , Non- Americans Ages 20-29 = 116 mL/min/1.73 sq.m. Ages 30-39 = 107 mL/min/1.73 sq.m. Ages 40-49 = 99 mL/min/1.73 sq.m. Ages 50-59 = 93 mL/min/1.73 sq.m. Ages 60-69 = 85 mL/min/1.73 sq.m. Ages 70+ = 75 mL/min/1.73 sq.m. Chronic Kidney Disease: Less than 60 mL/min/1.73 square meters End Stage Renal Disease: Less than 15 mL/min/1.73 square meters Performed By: #### B MP, GFR #### [address] [address] .NEUABSon 04-24-2024 Neutrophil, Absolute 4.3 10 3/mcL Normal 2.3-8.1 [facility] ([place]) Comment on above: Performed By: #### B MP, GFR #### [address] [address] BMPon 04-24-2024 BUN/Creatinine Ratio 16.5 ratio Normal 10.0-22.0 [facility] ([place]) Comment on above: Performed By: #### B MP, GFR #### [place] [id number] Calcium [Mass/Vol] 9.3 mg/dL Normal 8.7-10.4 [facility] ([place]) Comment on above: Performed By: #### B MP, GFR #### [address] [address] Chloride [Moles/Vol] 106 mmol/L Normal 98-110 [facility] ([place]) Comment on above: Performed By: #### B MP, GFR #### [address] [address] CO2 [Moles/Vol] 28 mmol/L Normal 22-32 [facility] ([place]) Comment on above: Performed By: #### B MP, GFR #### [address] [address] Creatinine [Mass/Vol] 1.09 mg/dL Normal 0.50-1.20 [facility] ([place]) Comment on above: Performed By: #### B MP, GFR #### [address] [address] Electrolyte Balance 5.0 mEq/L Normal 4.0-15.0 [facility] ([place]) Comment on above: Performed By: #### B MP, GFR #### [address] [address] Glucose [Mass/Vol] 102 mg/dL Normal 70-110 [facility] ([place] Comment on above: Performed By: #### B MP, GFR #### [address] [address] Potassium [Moles/Vol] 3.7 mmol/L Normal 3.5-5.0 [facility] ([place]) Comment on above: Performed By: #### B MP, GFR #### [address] [address] Sodium [Moles/Vol] 139 mmol/L Normal 136-145 [facility] ([place] Comment on above: Performed By: #### B MP, GFR #### [place] [address] Urea nitrogen [Mass/Vol] 18.0 mg/dL Normal 8.0-22.0 [facility] ([place]) Comment on above: Performed By: #### B MP, GFR #### [address] [address] CBCon 04-24-2024 Erythrocyte distribution width (RBC) [Ratio] 13.4 % Normal 11.5-15.5 [facility] ([place]) Comment on above: Performed By: #### B MP, GFR #### [address] [address] Hematocrit (Bld) [Volume fraction] 39.1 % Normal 34.0-46.0 [facility] ([place]) Comment on above: Performed By: #### B MP, GFR #### [address] [address] Hgb 13.8 G/dL Normal 12.0-16.0 [facility] ([place] Comment on above: Performed By: #### B MP, GFR #### [address] [address] MCH (RBC) [Entitic mass] 31.3 pg Normal 27.0-33.0 [facility] ([place] Comment on above: Performed By: #### B MP, GFR #### [place] [address] MCHC 35.4 G/dL Normal 32.0-36.0 [facility] ([place] Comment on above: Performed By: #### B MP, GFR #### [place] [address] MCV (RBC) [Entitic vol] 88.4 fL Normal 80.0-99.0 A [facility] ([place]) Comment on above: Performed By: #### B MP, GFR #### [place] [address] Platelet 175 10 3/mcL Normal 150-450 [facility] ([place] Comment on above: Performed By: #### B MP, GFR #### [place] [address] Platelet mean volume (Bld) [Entitic vol] 8.6 fL Normal 6.6-10.5 [facility] ([place] Comment on above: Performed By: #### B MP, GFR #### [place] [address] RBC 4.42 10 6/mcL Normal 4.10-5.30 [facility] ([place] Comment on above: Performed By: #### B MP, GFR #### [place] [address] WBC 8.3 10 3/mcL Normal 4.5-10.8 [facility] ([place] Comment on above: Performed By: #### B MP, GFR #### [place] [address] LABORATORYOrdered By: SYSTEM SYSTEM on 04-24-2024 Basophils (Bld) [#/Vol] 0.1 103/mcL Normal 0.0 - 0.3 10^3/mcL AH Workflow SS Basophils/100 WBC (Bld) 0.6 % Normal 0.0 - 2.5 % AH Workflow SS Calcium [Mass/Vol] 9.3 mg/dL Normal 8.7 - 10. 4 mg/dL AH ADM SS Chloride [Moles/Vol] 106 mmol/L Normal 98 - 11 0 mEq/L AH ADM SS CO2 [Moles/Vol] 28 mmol/L Normal 22 - 32 mEq/L ADM SS Creatinine [Mass/Vol] 1.09 mg/dL Normal 0.50 - 1.20 mg/dL ADM SS Electrolyte Balance 5.0 mEq/L Normal 4.0 - 15 .0 mEq/L ADM SS Eosinophils (Bld) [#/Vol] 0.1 103/mcL Normal 0. 0 - 0.7 10^3/mcL Workflow SS Eosinophils/100 WBC (Bld) 1.5 % Normal 0.0 - 6.0 % Workflow SS Erythrocyte distribution width (RBC) [Ratio] 13.4 % Normal 11.5 - 15.5 % Workflow SS GFR/1.73 sq M.predicted among blacks MDRD (S/P/Bld) [Vol rate/Area] ml/min/1.73sqm Invalid Interpretation Code [employer] Chemistry S Comment on above: Interpretive Data: GFR Population mean for , Non- Americans Ages 20-29 = 116 mL/min/1.73 sq.m. Ages 30-39 = 107 mL/min/1.73 sq.m. Ages 40-49 = 99 mL/min/1.73 sq.m. Ages 50-59 = 93 mL/min/1.73 sq.m. Ages 60-69 = 85 mL/min/1.73 sq.m. Ages 70+ = 75 mL/min/1.73 sq.m. Chronic Kidney Disease: Less than 60 mL/min/1.73 square meters End Stage Renal Disease: Less than 15 mL/min/1.73 square meters GFR/1.73 sq M.predicted among non-blacks MDRD (S/P/Bld) [Vol rate/Area] 54 ml/min/1.73sqm Invalid Interpretation Code [employer] Chemistry S Comment on above: Interpretive Data: GFR Population mean for , Non- Americans Ages 20-29 = 116 mL/min/1.73 sq.m. Ages 30-39 = 107 mL/min/1.73 sq.m. Ages 40-49 = 99 mL/min/1.73 sq.m. Ages 50-59 = 93 mL/min/1.73 sq.m. Ages 60-69 = 85 mL/min/1.73 sq.m. Ages 70+ = 75 mL/min/1.73 sq.m. Chronic Kidney Disease: Less than 60 mL/min/1.73 square meters End Stage Renal Disease: Less than 15 mL/min/1.73 square meters Glucose [Mass/Vol] 102 mg/dL Normal 70 - 110 mg/dL ADM SS Hematocrit (Bld) [Volume fraction] 39.1 % Normal 34.0 - 46.0 % AH Workflow SS Hemoglobin (Bld) [Mass/Vol] 13.8 G/dL Normal 12.0 - 16.0 G/dL AH Workflow SS Lymphocytes (Bld) [#/Vol] 3.1 103/mcL Normal 0. 9 - 4.3 10^3/mcL AH Workflow SS Lymphocytes/100 WBC (Bld) 38.0 % Normal 20 .0 - 40.0 % AH Workflow SS MCH (RBC) [Entitic mass] 31.3 pg Normal 27. 0 - 33.0 pg AH Workflow SS MCHC 35.4 G/dL Normal 32.0 - 36.0 G/dL AH Workflow SS MCV (RBC) [Entitic vol] 88.4 fL Normal 80.0 - 99.0 fL AH Workflow SS Monocytes (Bld) [#/Vol] 0.7 103/mcL Normal 0.1 - 1.4 10^3/mcL AH Workflow SS Monocytes/100 WBC (Bld) 8.2 % Normal 2.0 - 13.0 % AH Workflow SS Neutrophils (Bld) [#/Vol] 4.3 103/mcL Normal 2. 3 - 8.1 10^3/mcL AH Workflow SS Neutrophils/100 WBC (Bld) 51.7 % Normal 50 .0 - 75.0 % AH Workflow SS Platelet mean volume (Bld) [Entitic vol] 8.6 fL Normal 6.6 - 10.5 fL AH Workflow SS Platelets (Bld) [#/Vol] 175 103/mcL Normal 150 - 450 10^3/mcL AH Workflow SS Potassium [Moles/Vol] 3.7 mmol/L Normal 3.5 - 5.0 mEq/L AH ADM SS RBC (Bld) [#/Vol] 4.42 106/mcL Normal 4.10 - 5.3 0 10^6/mcL AH Workflow SS Sodium [Moles/Vol] 139 mmol/L Normal 136 - 145 mEq/L ADM SS Urea nitrogen [Mass/Vol] 18.0 mg/dL Normal 8.0 - 22.0 mg/dL AH ADM SS Urea nitrogen/Creatinine [Mass ratio] 16.5 ratio Normal 10.0 - 22.0 ratio AH ADM SS WBC (Bld) [#/Vol] 8.3 103/mcL Normal 4.5 - 10.8 10^3/mcL AH Workflow SS XR FLUORO 1-2 HRS TECH TIMEo n 04-24-2024 XR FLUORO 1-2 HRS TECH TIME ORIGINAL EXAMINATION: SPOT FLUOROSCOPIC IMAGES 04/24/2024 3:05 pm TECHNIQUE: Fluoroscopy was provided by the radiology department for procedure. Radiologist was not present during examination. FLUOROSCOPY DOSE AND TYPE: Radiation Exposure Index: 9.74 mGy air kerma, fluoroscopy time 1 is 8.5 seconds. COMPARISON: None HISTORY: ORDERING SYSTEM PROVIDED HISTORY: Reason for Exam: L4-L5 LAMI Intraprocedural imaging. FINDINGS: 5 intraoperative images show instrumentation at approximately L4-5. Degenerative changes seen of the visualized spine. Detail is suboptimal. IMPRESSION: Limited intraoperative views. Refer to surgical report Interpreted by: Edgard Choi MD Preliminary Report By: Edgard Choi MD Electronically signed By Edgard Choi MD Dictated Date: 04/24/2024 4:31:07 PM Prelim Date: 04/24/2024 4:32:01 PM Sign Date: 04/24/2024 4:32:01 PM Ordering Provider: CHRIS Balbuena [facility] ([place]) .GFRon 04-23-2024 GFR >60 Normal [facility] ([place]) Comment on above: Result Comment: GFR Population mean for , Non- Americans Ages 20-29 = 116 mL/min/1.73 sq.m. Ages 30-39 = 107 mL/min/1.73 sq.m. Ages 40-49 = 99 mL/min/1.73 sq.m. Ages 50-59 = 93 mL/min/1.73 sq.m. Ages 60-69 = 85 mL/min/1.73 sq.m. Ages 70+ = 75 mL/min/1.73 sq.m. Chronic Kidney Disease: Less than 60 mL/min/1.73 square meters End Stage Renal Disease: Less than 15 mL/min/1.73 square meters Performed By: #### B MP, GFR #### [address] [address] GFR Non- 50 ml/min/1.73sqm Normal [facility] ([place]) Comment on above: Result Comment: GFR Population mean for , Non- Americans Ages 20-29 = 116 mL/min/1.73 sq.m. Ages 30-39 = 107 mL/min/1.73 sq.m. Ages 40-49 = 99 mL/min/1.73 sq.m. Ages 50-59 = 93 mL/min/1.73 sq.m. Ages 60-69 = 85 mL/min/1.73 sq.m. Ages 70+ = 75 mL/min/1.73 sq.m. Chronic Kidney Disease: Less than 60 mL/min/1.73 square meters End Stage Renal Disease: Less than 15 mL/min/1.73 square meters Performed By: #### B MP, GFR #### [address] [address] APTTon 04-23-2024 aPTT Coag (Bld) [Time] 32.3 s Normal 25.0-35.0 [facility] ([place]) Comment on above: Result Comment: For Heparin anticoagulation therapy, the recommended therapeutic range is: 54-77 seconds (APTT Correlation with Anti-Xa therapeutic range of 0.3-0.7 units/ml). PLEASE REFERENCE THE PHARMACY PROTOCOL FOR DOSING. Performed By: #### U A #### [address] [address] Heparin dose (APTT) None Normal [facility] ([place]) Comment on above: Performed By: #### U A #### [address] [address] BMPon 04-23-2024 BUN/Creatinine Ratio 12.2 ratio Normal 10.0-22.0 [facility] ([place]) Comment on above: Performed By: #### B MP, GFR #### [address] [address] Calcium [Mass/Vol] 9.5 mg/dL Normal 8.7-10.4 [facility] ([place] Comment on above: Performed By: #### B MP, GFR #### [address] [address] Chloride [Moles/Vol] 104 mmol/L Normal 98-110 [facility] ([place] Comment on above: Performed By: #### B MP, GFR #### [address] [address] CO2 [Moles/Vol] 29 mmol/L Normal 22-32 [facility] ([place] Comment on above: Performed By: #### B MP, GFR #### [address] [address] Creatinine [Mass/Vol] 1.15 mg/dL Normal 0.50-1.20 [facility] ([place]) Comment on above: Performed By: #### B MP, GFR #### [address] [address] Electrolyte Balance 4.0 mEq/L Normal 4.0-15.0 [facility] ([place]) Comment on above: Performed By: #### B MP, GFR #### [address] [address] Glucose [Mass/Vol] 107 mg/dL Normal 70-110 [facility] ([place] Comment on above: Performed By: #### B MP, GFR #### [address] [address] Potassium [Moles/Vol] 3.8 mmol/L Normal 3.5-5.0 [facility] ([place]) Comment on above: Performed By: #### B MP, GFR #### [address] [address] Sodium [Moles/Vol] 137 mmol/L Normal 136-145 [facility] ([place] Comment on above: Performed By: #### B MP, GFR #### [address] [address] Urea nitrogen [Mass/Vol] 14.0 mg/dL Normal 8.0-22.0 [facility] ([place] Comment on above: Performed By: #### B MP, GFR #### [address] [address] FIBon 06-05-2024 Fibrinogen 564 mg/dL High 250-560 [facility] ([place]) Comment on above: Performed By: #### U A #### [facility] [address] [place], [place] [address] LABORATORYOrdered By: Kassy Nelson on 04-23-2024 Appearance (U) Clear (04/23/24 8:02 PM) Normal Clear AH Auto Urine SS Bilirubin Ql (U) Negative (04/23/24 8:02 PM) Normal Neg-Trace AH Auto Urine SS Color (U) Yellow (04/23/24 8:02 PM) Normal AH Auto Urine SS Glucose Test strip (U) [Mass/Vol] Negative Normal Negative AH Auto Urine SS Hemoglobin Auto test strip (U) [Mass/Vol] Negative (04/23/24 8:02 PM) Normal Neg-Trace AH Auto Urine SS Ketones Ql (U) Negative Normal Neg-Trace AH Auto Urine SS UA Leuk Est Negative (04/23/24 8:02 PM) Normal Negative AH Auto Urine SS UA Nitrite Negative (04/23/24 8:02 PM) Normal Negative AH Auto Urine SS UA pH 5.5 (04/23/24 8:02 PM) Normal 5.0 - 8.0 AH Auto Urine SS UA Protein Negative Normal Negative AH Auto Urine SS UA Spec Grav 1.025 (04/23/24 8:02 PM) Normal 1.006-1.029 AH Auto Urine SS UA Specimen Type Void (04/23/24 8:02 PM) Normal AH Auto Urine SS UA Urobilinogen 0.2 E.U./dL Normal 0.2-1.0 AH Auto Urine SS aPTT Coag (Bld) [Time] 32.3 s Normal 25.0 - 35.0 seconds AH [facility] SS Comment on above: Interpretive Data: F or Heparin anticoagulation therapy, the recommended therapeutic range is: 54-77 seconds (APTT Correlation with Anti-Xa therapeutic range of 0.3-0.7 units/ml). PLEASE REFERENCE THE PHARMACY PROTOCOL FOR DOSING. Fibrinogen 564 mg/dL High 250 - 560 mg/dL AH [facility] SS PT Coag (PPP) [Time] 11.6 s Normal 9.0 - 1 4.4 seconds AH [facility] SS Comment on above: Interpretive Data: E ffective 06/02/08, Protime results may be affected by some antibiotics (i.e. Ciprofloxacin, Azithromycin, Bactrim) which may potentiate the action of oral anticoagulants, with further increases in Protime/INR. PT International Ratio 1.0 ratio Invalid Interpretation Code AH [facility] SS Comment on above: Interpretive Data: Guillermina garza [employer] (CHEST, 1991, 102:312S-25S) recommended therapeutic range for oral anticoagulant therapy is: LOW RISK: Prophylaxis of venous thrombosis INR: 2.0-3.0 Treatment of pulmonary embolism 2.0-3.0 Prevention of systemic embolism 2.0-3.0 HIGH RISK: Mechanical prosthetic valves 2.5-3.5 LABORATORYOrdered By: Sal Kelley on 04-23-2024 Heparin dose (APTT) None Normal AH Coagulation S Plt % Functional 92 % Normal 80 - 97 % Hematology S Plt ADP 18 k/mm3 Invalid Interpretation Code Hematology S Plt Base 221 k/mm3 Invalid Interpretation Code Hematology S MRI SPINE LUMBAR W/ + W/O CO NTRASTon 04-23-2024 MRI SPINE LUMBAR W/ + W/O CONTRAST ORIGINAL INDICATION:ORDERING SYSTEM PROVIDED HISTORY: Reason for Exam: R low back pain, incontinence, R leg weakness TECHNIQUE: MRI of the lumbar spine was performed without and with the administration of intravenous contrast, according to standard protocol. COMPARISON: CT lumbar spine 04/21/2024, CT abdomen pelvis 11/10/2020 FINDINGS: ALIGNMENT: Trace degenerative anterolisthesis of L4 on L5. VERTEBRAE: No evidence of an acute/recent fracture. Anterior bridging degenerative enthesopathy changes involve T12-L1. Moderately prominent anterior spinal changes are at L1-L2 are also noted. Modic type 2 endplate degenerative changes are present at the T12-L1 level. 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 A 10 mm hyperintense focus on T1 and T2 weighted images is located in the left iliac wing not conspicuous on the examinations of reference. DISCS: Widespread disc desiccation. Mild disc height loss involves L4-5. CONUS MEDULLARIS AND CAUDA EQUINA: The conus medullaris terminates at L1-L2 and is normal. The cauda equina are unremarkable. Variation fatty infiltration of the filum terminale. PARAVERTEBRAL SOFT TISSUES: Mild atrophy of the posterior paraspinous muscles more pronounced on the right at L4 and L5. SPINAL CANAL: Overall reduced caliber of the spinal canal on the basis of congenitally short pedicles. EVALUATION OF INDIVIDUAL LEVELS DEMONSTRATES: T12-L1: A left subarticular disc extrusion effaces the ventral and left lateral spinal cord causing [id number] central canal stenosis without foraminal narrowing. L1-2: No disc herniation, central canal stenosis or foraminal narrowing. Mild bilateral facet arthrosis with a small left facet effusion. L2-3: Small circumferential disc bulge and mild facet arthrosis causes mild bilateral foraminal narrowing without central canal stenosis. A small left facet joint effusion is noted. L3-4: Trace diffuse bulge of the posterior annulus and mild facet arthrosis without disc herniation, central canal stenosis or foraminal narrowing. L4-5: Diffuse posterior disc bulge most pronounced to the right with a superimposed right subarticular foraminal and extraforaminal disc herniation, small canal, ligamentum flavum hypertrophy and facet arthrosis results in impingement of the descending right L5 nerve root (axial T2 image 13 series 6), moderate right and mild left foraminal narrowing without central canal stenosis. Enhancement within the right foramen and subarticular zone is noted and must be correlated with any surgical history. Disc may contact the exited bilateral L4 nerve roots. L5-S1: Small diffuse posterior disc bulge, disc unroofing associated with an anterolisthesis L5 on S1, and moderate bilateral facet arthrosis causes mild bilateral foraminal narrowing without central canal stenosis. LIMITED EVALUATION OF UPPER SACRUM AND SACROILIAC JOINTS: DEGENERATIVE CHANGES of the bilateral sacroiliac joints more pronounced on the left. IMPRESSION: 1. Mild to moderate central canal stenosis at T12-L1. 2. Impingement of the descending right L5 and possibly the bilateral exited L4 nerve roots at L4-5. 3. Enhancement within the right L4-5 subarticular and foraminal zones. Correlate with any prior surgical history or interventional procedures. 4. Probable benign 10 mm hyperintense focus on T1 and T2 weighted images within the left iliac crest not conspicuous on CT. Interpreted by: Marco A Ogden MD Preliminary Report By: Marco A Ogden MD Electronically signed By Marco A Ogden MD Dictated Date: 04/23/2024 2:21:49 PM Prelim Date: 04/23/2024 2:44:58 PM Sign Date: 04/23/2024 2:44:58 PM Ordering Provider: ARACELI Balbuena [facility] ([place]) PLTon 04-23-2024 Platelet 232 10 3/mcL Normal 150-450 [facility] ([place]) Comment on above: Performed By: #### U A #### [address] [address] PLTFon 04-23-2024 Plt % Functional 92 % Normal 80-97 [facility] ([place]) Comment on above: Performed By: #### U A #### [address] [address] Plt ADP 18 k/mm3 Normal [facility] ([place] Comment on above: Performed By: #### U A #### [address] [address] Plt Base 221 k/mm3 Normal [facility] ([place] Comment on above: Performed By: #### U A #### [address] [address] PROon 04-23-2024 INR Coag (PPP) [Relative time] 1.0 {INR} Normal [facility] ([place]) Comment on above: Result Comment: [employer] (CHEST, 1992, 102:312S-25S) recommended therapeutic range for oral anticoagulant therapy is: LOW RISK: Prophylaxis of venous thrombosis INR: 2.0-3.0 Treatment of pulmonary embolism 2.0-3.0 Prevention of systemic embolism 2.0-3.0 HIGH RISK: Mechanical prosthetic valves 2.5-3.5 Performed By: #### U A #### [place] [id number] PT Coag (PPP) [Time] 11.6 s Normal 9.0-14.4 [facility] ([place]) Comment on above: Result Comment: Effe ctive 06/02/08, Protime results may be affected by some antibiotics (i.e. Ciprofloxacin, Azithromycin, Bactrim) which may potentiate the action of oral anticoagulants, with further increases in Protime/INR. Performed By: #### U A #### [address] [address] UAon 04-23-2024 Color (U) Yellow Normal [facility] ([place]) Comment on above: Performed By: #### U A #### [address] [address] Glucose (U) [Mass/Vol] Negative Normal Negative [facility] ([place]) Comment on above: Performed By: #### U A #### [address] [address] Ketones Ql (U) Negative Normal Neg-Trace [facility] ([place] Comment on above: Performed By: #### U A #### [place] [address] UA Appear Clear Normal Clear [facility] ([place] Comment on above: Performed By: #### U A #### [place] [address] UA Blood Negative Normal Neg-Trace [facility] ([place] Comment on above: Performed By: #### U A #### [place] [address] UA Leuk Est Negative Normal Negative [facility] ([place] Comment on above: Performed By: #### U A #### [address] [address] UA Nitrite Negative Normal Negative [facility] ([place] Comment on above: Performed By: #### U A #### [place] [address] UA pH 5.5 Normal 5.0 - 8.0 [facility] ([place] Comment on above: Performed By: #### U A #### [place] [address] UA Protein Negative Normal Negative [facility] ([place] Comment on above: Performed By: #### U A #### [place] [address] UA Spec Grav 1.025 Normal 1.006-1.029 [facility] ([place] Comment on above: Performed By: #### U A #### [place] [address] UA Specimen Type Void Normal [facility] ([place] Comment on above: Performed By: #### U A #### [facility] [address] [place] [address] UA Urobilinogen 0.2 E.U./dL Normal 0.2-1.0 [facility] ([place] Comment on above: Performed By: #### U A #### [facility] [address] [place] [address] Urobilinogen (U) [Mass/Vol] Negative Normal Neg-Trace [facility] ([place] Comment on above: Performed By: #### U A #### [facility] [address] [place] [address] [address] SPINE LUMBAR W/O CONTRAST on 04-21-2024 CT SPINE LUMBAR W/O CONTRAST ORIGINAL EXAMINATION: CT OF THE LUMBAR SPINE WITHOUT CONTRAST 04/21/2024 TECHNIQUE: CT of the lumbar spine was performed without the administration of intravenous contrast. Multiplanar reformatted images are provided for review. Adjustment of mA and/or kV according to patient size was utilized. Automated exposure control, iterative reconstruction, and/or weight based adjustment of the mA/kV was utilized to reduce the radiation dose to as low as reasonably achievable. COMPARISON: Lumbar spine x-ray on 03/22/2024. CT abdomen and pelvis on 01/27/2024. HISTORY: ORDERING SYSTEM PROVIDED HISTORY: Reason for Exam: PT C/O LOWER BACK PAIN WITH RADIATING PAIN DOWN RIGHT LEG, NO SURGICAL HX INJURY FINDINGS: BONES/ALIGNMENT: The lumbar spine alignment is normal. The vertebral bodies are normal in height with no fracture. DEGENERATIVE CHANGES: The T12-L1 intervertebral disc demonstrates mild narrowing. There is prominent osteophytic spur formation anteriorly. There is asymmetric focal disc protrusion posterolaterally to the left. There is calcification of the margins of the disc appears chronic. This creates narrowing of the left neural foramen and mild central canal stenosis. The L4-L5 intervertebral disc demonstrates moderate central bulging without focal disc protrusion. There is mild neural foraminal narrowing bilaterally at L4-L5. Other disc levels show no significant abnormality. Posterior elements are intact. SOFT TISSUES/RETROPERITON EUM: No paraspinal mass is seen. There is no retroperitoneal mass or lymph node enlargement. Abdominal aorta is nonaneurysmal. IMPRESSION: 1. No acute osseous abnormality of the lumbar spine. 2. Focal disc protrusion T12-L1 with left-sided neural foraminal narrowing and mild central canal stenosis. 3. Central bulging L4-L5 without focal disc protrusion. 4. Mild bilateral L4-L5 neural foraminal narrowing. Interpreted by: Reza Perea MD Preliminary Report By: Reza Perea MD Electronically signed By Reza Perea MD Dictated Date: 04/21/2024 7:40:08 AM Prelim Date: 04/21/2024 7:45:05 AM Sign Date: 04/21/2024 7:45:05 AM Ordering Provider: REHAN DOVER Normal [facility] ([place]) CVFLURVon 03-31-2024 FLU A PCR Negative Normal Negative [facility]) Comment on above: Result Comment: Note s [id number] Performed By: #### C VFLURV ####[place] [address] FLU B PCR Negative Normal Negative [facility] ([place]) Comment on above: Result Comment: [place] [id number] Performed By: #### C VFLURV ####[place] [address] RSV PCR Negative Normal Negative [facility] ([place]) Comment on above: Result Comment: [place] [id number] Performed By: #### C VFLURV ####[place] [id number] SARS-CoV-2 (COVID-19) RNA RHETT+probe Ql (Unsp spec) Negative Normal Negative [facility] ([place]) Comment on above: Result Comment: Note s [id number] This test has been authorized by FDA under an EUA for use by authorized laboratories and has not been FDA cleared or approved. Results from the Xpert Xpress SARS-CoV-2/Flu/RSV or Xpert Xpress SARS-CoV-2 only test should be correlated with the clinical history, epidemiological data, and other data available to the clinician evaluating the patient. Performance of the Xpert Xpress SARS-CoV-2/Flu/RSV or Xpert Xpress SARS-CoV-2 only test has only been established in nasopharyngeal swab specimens. Erroneous test results might occur from improper specimen collection; failure to follow the recommended sample collection, handling, and storage procedures; technical error; or sample mix-up.False negative results may occur if virus is present at levels below the analytical limit of detection. Viral nucleic acid may persist in vivo, independent of virus viability. Detection of analyte target(s) does not imply that the corresponding virus(es) are infectious or are the causative agents for clinical symptoms.Recent patient exposure to FluMist or other live attenuated influenza vaccines may cause inaccurate positive results. Performed By: #### C VFLURV ####[place] [address] CT HEAD OR BRAIN W/O CONTRAS Ton 03-22-2024 CT HEAD OR BRAIN W/O CONTRAST ORIGINAL EXAMINATION: CT OF THE HEAD WITHOUT CONTRAST 03/22/2024 2:24 am TECHNIQUE: CT of the head was performed without the administration of intravenous contrast. Automated exposure control, iterative reconstruction, and/or weight based adjustment of the mA/kV was utilized to reduce the radiation dose to as low as reasonably achievable. COMPARISON: CT head on 01/17/2023 HISTORY: ORDERING SYSTEM PROVIDED HISTORY: Reason for Exam: PATIENT STATES SHE FELL DOWN 3 STEPS AND HIT HER HEAD, -LOC, -THINNERS, C/O RIGHT ORTHODOXY PAIN AND HEADACHE INJURY FINDINGS: BRAIN/VENTRICLES: There is no acute intracranial hemorrhage, mass effect or midline shift. No abnormal extra-axial fluid collection. The carreno-white differentiation is maintained without evidence of an acute infarct. There is no evidence of hydrocephalus. ORBITS: The visualized portion of the orbits demonstrate no acute abnormality. SINUSES: The visualized paranasal sinuses and mastoid air cells demonstrate no acute abnormality. SOFT TISSUES/SKULL: No acute abnormality of the visualized skull or soft tissues. 1.8 cm partly calcified left scalp nodule is stable. IMPRESSION: No acute intracranial abnormality. Interpreted by: Reza Perea MD Preliminary Report By: Reza Perea MD Electronically signed By Reza Perea MD Dictated Date: 03/22/2024 2:25:55 AM Prelim Date: 03/22/2024 2:29:29 AM Sign Date: 03/22/2024 2:29:29 AM Ordering Provider: MELISSA REDDY [facility] ([place]) XR PELVIS 1 OR 2 VIEWSon XR PELVIS 1 OR 2 VIEWS ORIGINAL EXAMINATION: 2 XRAY VIEW OF THE PELVIS 03/22/2024 2:09 am COMPARISON: CT abdomen and pelvis on the 01/27/2024 HISTORY: ORDERING SYSTEM PROVIDED HISTORY: Reason for Exam: pain FINDINGS: Injury due to a fall down steps. There is no pelvic fracture. Sacroiliac joints and pubic symphysis have normal alignment. There is no fracture or dislocation of either hip. There is mild acetabular spur formation. IMPRESSION: 1. No fracture or dislocation of the pelvis. 2. Mild osteoarthritis of both hips. Interpreted by: Reza Perea MD Preliminary Report By: Reza Perea MD Electronically signed By Reza Perea MD Dictated Date: 03/22/2024 2:13:18 AM Prelim Date: 03/22/2024 2:14:45 AM Sign Date: 03/22/2024 2:14:45 AM Ordering Provider: MELISSA REDDY [facility] ([place]) XR SPINE LUMBAR AP/LATon XR SPINE LUMBAR AP/LAT ORIGINAL EXAMINATION: 2 XRAY VIEWS OF THE LUMBAR SPINE03/22/2024 2:08 am COMPARISON: Lumbar spine x-ray 12/15/2022 HISTORY: ORDERING SYSTEM PROVIDED HISTORY: Reason for Exam: fall Patient fell down steps, pain lower back and numbness down right leg FINDINGS: There are 5 lumbar type vertebral bodies. No acute fracture or spondylolisthesis. Mild to moderate degenerative changes, most notably between L5 and S1. Prominent marginal osteophytes noted between T12 and L1. The included sacroiliac joints are unremarkable. The pelvis is dictated separately. Limited evaluation of the sacral ala secondary to overlying bowel. Postsurgical changes noted within the pelvic inlet. Phleboliths noted. IMPRESSION: No acute fracture or spondylolisthesis. I have personally reviewed the images of this examination, and agree with the resident's findings and interpretation. Interpreted by: Reza Perea MD Preliminary Report By: Elisabeth Snow Electronically signed By Reza Perea MD Dictated Date: 03/22/2024 2:13:26 AM Prelim Date: 03/22/2024 2:19:16 AM Sign Date: 03/22/2024 2:21:06 AM Ordering Provider: MELISSA REDDY [facility] ([place]) .GFRon 03-07-2024 GFR >60 Normal [facility] ([place]) Comment on above: Result Comment: GFR Population mean for , Non- Americans Ages 20-29 = 116 mL/min/1.73 sq.m. Ages 30-39 = 107 mL/min/1.73 sq.m. Ages 40-49 = 99 mL/min/1.73 sq.m. Ages 50-59 = 93 mL/min/1.73 sq.m. Ages 60-69 = 85 mL/min/1.73 sq.m. Ages 70+ = 75 mL/min/1.73 sq.m. Chronic Kidney Disease: Less than 60 mL/min/1.73 square meters End Stage Renal Disease: Less than 15 mL/min/1.73 square meters Performed By: #### C MP, TSH, FT3, GFR, A1C, LIPID, VIDH ####[address] [address] GFR Non- 51 ml/min/1.73sqm Normal [facility] ([place]) Comment on above: Result Comment: GFR Population mean for , Non- Americans Ages 20-29 = 116 mL/min/1.73 sq.m. Ages 30-39 = 107 mL/min/1.73 sq.m. Ages 40-49 = 99 mL/min/1.73 sq.m. Ages 50-59 = 93 mL/min/1.73 sq.m. Ages 60-69 = 85 mL/min/1.73 sq.m. Ages 70+ = 75 mL/min/1.73 sq.m. Chronic Kidney Disease: Less than 60 mL/min/1.73 square meters End Stage Renal Disease: Less than 15 mL/min/1.73 square meters Performed By: #### C MP, TSH, FT3, GFR, A1C, LIPID, VIDH ####[address] [address] A1Con 03-07-2024 HbA1c (Bld) [Mass fraction] 6.3 % High 4.0-6.0 [facility] ([place]) Comment on above: Performed By: #### C MP, TSH, FT3, GFR, A1C, LIPID, VIDH ####[address] [address] CMPon 03-07-2024 Albumin Level 4.0 G/dL Normal 3.2-4.8 [facility] ([place]) Comment on above: Performed By: #### C MP, TSH, FT3, GFR, A1C, LIPID, VIDH ####[address] [address] Albumin/Globulin [Mass ratio] 1.1 {ratio} Normal 0.9-1.6 [facility] ([place]) Comment on above: Performed By: #### C MP, TSH, FT3, GFR, A1C, LIPID, VIDH ####[address] [address] ALP [Catalytic activity/Vol] 123 U/L Normal 38-126 [facility] ([place]) Comment on above: Performed By: #### C MP, TSH, FT3, GFR, A1C, LIPID, VIDH ####[place] [address] ALT [Catalytic activity/Vol] 25 U/L Normal 10-49 [facility] ([place]) Comment on above: Performed By: #### C MP, TSH, FT3, GFR, A1C, LIPID, VIDH ####[place] [id number] AST [Catalytic activity/Vol] 21 U/L Normal 8-34 [facility] ([place]) Comment on above: Performed By: #### C MP, TSH, FT3, GFR, A1C, LIPID, VIDH ####[place] [address] Bili Total 0.30 mg/dL Normal 0.20-1.20 [facility] ([place]) Comment on above: Result Comment: Use of this assay is not recommended for patients undergoing treatment with eltrombopag due to the potential for falsely elevated results. Performed By: #### C MP, TSH, FT3, GFR, A1C, LIPID, VIDH ####[place] [address] BUN/Creatinine Ratio 13.2 ratio Normal 10.0-22.0 [facility] ([place]) Comment on above: Performed By: #### C MP, TSH, FT3, GFR, A1C, LIPID, VIDH ####[address] [address] Calcium [Mass/Vol] 10.1 mg/dL Normal 8.7-10.4 [facility] ([place]) Comment on above: Performed By: #### C MP, TSH, FT3, GFR, A1C, LIPID, VIDH ####[address] [address] Chloride [Moles/Vol] 103 mmol/L Normal 98-110 [facility] ([place]) Comment on above: Performed By: #### C MP, TSH, FT3, GFR, A1C, LIPID, VIDH ####[address] [address] CO2 [Moles/Vol] 28 mmol/L Normal 22-32 [facility] ([place]) Comment on above: Performed By: #### C MP, TSH, FT3, GFR, A1C, LIPID, VIDH ####[place] [address] Creatinine [Mass/Vol] 1.14 mg/dL Normal 0.50-1.20 [facility] ([place]) Comment on above: Performed By: #### C MP, TSH, FT3, GFR, A1C, LIPID, VIDH ####[place] [address] Electrolyte Balance 8.0 mEq/L Normal 4.0-15.0 [facility] ([place]) Comment on above: Performed By: #### C MP, TSH, FT3, GFR, A1C, LIPID, VIDH ####[address] [address] Globulin 3.6 G/dL Normal 1.5-3.8 [facility] ([place]) Comment on above: Performed By: #### C MP, TSH, FT3, GFR, A1C, LIPID, VIDH ####[address] [address] Glucose [Mass/Vol] 102 mg/dL Normal 70-110 [facility] ([place]) Comment on above: Performed By: #### C MP, TSH, FT3, GFR, A1C, LIPID, VIDH ####[address] [address] Potassium [Moles/Vol] 4.7 mmol/L Normal 3.5-5.0 [facility] ([place]) Comment on above: Performed By: #### C MP, TSH, FT3, GFR, A1C, LIPID, VIDH ####[address] [address] Sodium [Moles/Vol] 139 mmol/L Normal 136-145 [facility] ([place]) Comment on above: Performed By: #### C MP, TSH, FT3, GFR, A1C, LIPID, VIDH ####[address] [address] Total Protein 7.6 G/dL Normal 5.7-8.2 [facility] ([place]) Comment on above: Result Comment: No te - New Reference Range in effect 20 Performed By: #### C MP, TSH, FT3, GFR, A1C, LIPID, VIDH ####[address] [address] Urea nitrogen [Mass/Vol] 15.0 mg/dL Normal 8.0-22.0 [facility] ([place]) Comment on above: Performed By: #### C MP, TSH, FT3, GFR, A1C, LIPID, VIDH ####[address] [address] FT3on 03-07-2024 Free T3 [Mass/Vol] 3.00 pg/mL Normal 2.30-4.20 [facility] ([place] Comment on above: Performed By: #### C MP, TSH, FT3, GFR, A1C, LIPID, VIDH ####[address] [address] LIPIDon 03-07-2024 Cholesterol [Mass/Vol] 182 mg/dL Normal 50-199 [facility] ([place]) Comment on above: Result Comment: Chol esterol Reference Interval: Less than 200 Desirable 200-239 Borderline high risk 240 and above High risk Performed By: #### C MP, TSH, FT3, GFR, A1C, LIPID, VIDH ####[address] [address] Cholesterol in HDL [Mass/Vol] 40 mg/dL Normal 40-59 [facility] ([place]) Comment on above: Performed By: #### C MP, TSH, FT3, GFR, A1C, LIPID, VIDH ####[place] [id number] [address] [place] [id number] LDL Cholesterol Not Valid Normal 0-129 [facility] ([place]) Comment on above: Result Comment: Trig lyceride >400 invalidates the calculated LDL. Performed By: #### C MP, TSH, FT3, GFR, A1C, LIPID, VIDH ####[address] [address] Triglyceride [Mass/Vol] 525 mg/dL High 3-149 A [facility] ([place]) Comment on above: Performed By: #### C MP, TSH, FT3, GFR, A1C, LIPID, VIDH ####[address] [address] MALBRon 03-07-2024 U Creatinine 188.6 mg/dL Normal [facility] ([place]) Comment on above: Performed By: #### U A #### [address] [address] U Microalb 938 mcg/dL Normal [facility] ([place]) Comment on above: Performed By: #### U A #### [address] [address] U Ratio Alb/Cre 5.0 mcg/mg Normal 0.0-24.9 [facility] ([place] Comment on above: Performed By: #### U A #### [address] [address] TSHon 03-07-2024 TSH 2.486 mIU/mL Normal 0.550-4.780 [facility] ([place]) Comment on above: Result Comment: No te - New Reference Range in effect 20 Performed By: #### C MP, TSH, FT3, GFR, A1C, LIPID, VIDH ####[address] [address] VIDHon 03-07-2024 Vit. D 25-Hydroxy 51.4 ng/mL Normal [facility] ([place]) Comment on above: Result Comment: Inte rpretive Values Based on Total 25(OH)D: Severe Deficiency <20 ng/mL Mild to Moderate Deficiency 20-30 ng/mL Optimum Levels 30-100 ng/mL Toxicity Possible >100 ng/mL Performed By: #### C MP, TSH, FT3, GFR, A1C, LIPID, VIDH ####[address] [address] .Auto Diffon 01-27-2024 Basophil, Absolute 0.1 10 3/mcL Normal 0.0-0.3 [facility] ([place] Comment on above: Performed By: #### A KIAH, ADIFF, CMP, GFR, CBC, LIP, MDW ####[address] [address] Basophils/100 WBC (Bld) 1.1 % Normal 0.0-2.5 A [facility] ([place]) Comment on above: Performed By: #### A KIAH, ADIFF, CMP, GFR, CBC, LIP, MDW ####[address] [address] Eosinophil, Absolute 0.3 10 3/mcL Normal 0.0-0.7 [facility] ([place]) Comment on above: Performed By: #### A KIAH, ADIFF, CMP, GFR, CBC, LIP, MDW ####[address] [address] Eosinophils/100 WBC (Bld) 2.5 % Normal 0.0-6.0 [facility] ([place] Comment on above: Performed By: #### A KIAH, ADIFF, CMP, GFR, CBC, LIP, MDW ####[address] [address] Lymphocyte, Absolute 2.7 10 3/mcL Normal 0.9-4.3 [facility] ([place]) Comment on above: Performed By: #### A KIAH, ADIFF, CMP, GFR, CBC, LIP, MDW ####[address] [address] Lymphocytes/100 WBC (Bld) 26.6 % Normal 20.0-40.0 [facility] ([place] Comment on above: Performed By: #### A KIAH, ADIFF, CMP, GFR, CBC, REGGIE KOWALSKI ####[address] [address] Monocyte, Absolute 0.7 10 3/mcL Normal 0.1-1.4 [facility] ([place] Comment on above: Performed By: #### A KIAH, ADIFF, CMP, GFR, CBC, MEGHANA, REGGIE ####[address] [address] Monocytes/100 WBC (Bld) 6.8 % Normal 2.0-13.0 A [facility] ([place] Comment on above: Performed By: #### A KIAH, ADIFF, CMP, GFR, CBC, REGGIE KOWALSKI ####[address] [address] Neutrophils/100 WBC (Bld) 63.0 % Normal 50.0-75.0 [facility] ([place] Comment on above: Performed By: #### A KIAH, ADIFF, CMP, GFR, CBC, REGGIE KOWALSKI ####[address] [address] .GFRon 01-27-2024 GFR >60 Normal [facility] ([place] Comment on above: Result Comment: GFR Population mean for , Non- Americans Ages 20-29 = 116 mL/min/1.73 sq.m. Ages 30-39 = 107 mL/min/1.73 sq.m. Ages 40-49 = 99 mL/min/1.73 sq.m. Ages 50-59 = 93 mL/min/1.73 sq.m. Ages 60-69 = 85 mL/min/1.73 sq.m. Ages 70+ = 75 mL/min/1.73 sq.m. Chronic Kidney Disease: Less than 60 mL/min/1.73 square meters End Stage Renal Disease: Less than 15 mL/min/1.73 square meters Performed By: #### A KIAH, ADIFF, CMP, GFR, CBC, MEGHANA, REGGIE ####[address] [address] GFR Non- 52 ml/min/1.73sqm Normal [facility] ([place]) Comment on above: Result Comment: GFR Population mean for , Non- Americans Ages 20-29 = 116 mL/min/1.73 sq.m. Ages 30-39 = 107 mL/min/1.73 sq.m. Ages 40-49 = 99 mL/min/1.73 sq.m. Ages 50-59 = 93 mL/min/1.73 sq.m. Ages 60-69 = 85 mL/min/1.73 sq.m. Ages 70+ = 75 mL/min/1.73 sq.m. Chronic Kidney Disease: Less than 60 mL/min/1.73 square meters End Stage Renal Disease: Less than 15 mL/min/1.73 square meters Performed By: #### A KIAH, ADIFF, CMP, GFR, CBC, LIP, MDW ####[place] [address] .MDWon 01-27-2024 Monocyte Distribution Width 19.63 Normal 0.00-20.00 [facility] ([place]) Comment on above: Result Comment: For ED adult patients suspected of sepsis, MDW<=20.0 does not rule out sepsis or risk of sepsis Performed By: #### A KIAH, ADIFF, CMP, GFR, CBC, LIP, REGGIE ####[place] [address] .NEUABSon 01-27-2024 Neutrophil, Absolute 6.4 10 3/mcL Normal 2.3-8.1 [facility] ([place]) Comment on above: Performed By: #### A KIAH, ADIFF, CMP, GFR, CBC, MEGHANA, REGGIE ####[place] [address] CBCon 01-27-2024 Erythrocyte distribution width (RBC) [Ratio] 14.1 % Normal 11.5-15.5 [facility] ([place]) Comment on above: Performed By: #### A KIAH, ADIFF, CMP, GFR, CBC, LIP, W ####[place] [address] Hematocrit (Bld) [Volume fraction] 41.5 % Normal 34.0-46.0 [facility] ([place] Comment on above: Performed By: #### A KIAH, ADIFF, CMP, GFR, CBC, MEGHANA, W ####[place] [address] Hgb 14.1 G/dL Normal 12.0-16.0 [facility] ([place] Comment on above: Performed By: #### A KIAH, ADIFF, CMP, GFR, CBC, LIP, MDW ####[place] [address] MCH (RBC) [Entitic mass] 30.2 pg Normal 27.0-33.0 [facility] ([place] Comment on above: Performed By: #### A KIAH, ADIFF, CMP, GFR, CBC, LIP, W ####[place] [address] MCHC 34.0 G/dL Normal 32.0-36.0 [facility] ([place] Comment on above: Performed By: #### A KIAH, ADIFF, CMP, GFR, CBC, LIP, MDW ####[place] [address] MCV (RBC) [Entitic vol] 89.0 fL Normal 80.0-99.0 A [facility] ([place] Comment on above: Performed By: #### A KIAH, ADIFF, CMP, GFR, CBC, LIP, MDW ####[place] [address] Platelet 235 10 3/mcL Normal 150-450 [facility] ([place] Comment on above: Performed By: #### A KIAH, ADIFF, CMP, GFR, CBC, LIP, MDW ####[place] [address] Platelet mean volume (Bld) [Entitic vol] 8.5 fL Normal 6.6-10.5 [facility] ([place] Comment on above: Performed By: #### A KIAH, ADIFF, CMP, GFR, CBC, LIP, MDW ####[place] [address] RBC 4.67 10 6/mcL Normal 4.10-5.30 [facility] ([place] Comment on above: Performed By: #### A KIAH, ADIFF, CMP, GFR, CBC, LIP, W ####[address] [address] WBC 10.2 10 3/mcL Normal 4.5-10.8 [facility] ([place] Comment on above: Performed By: #### A KIAH, ADIFF, CMP, GFR, CBC, LIP, MDW ####[address] [address] CMPon 01-27-2024 Albumin Level 3.9 G/dL Normal 3.2-4.8 [facility] ([place] Comment on above: Performed By: #### A KIAH, ADIFF, CMP, GFR, CBC, LIP, MDW ####[address] [address] Albumin/Globulin [Mass ratio] 1.1 {ratio} Normal 0.9-1.6 [facility] ([place] Comment on above: Performed By: #### A KIAH, ADIFF, CMP, GFR, CBC, LIP, MDW ####[address] [address] ALP [Catalytic activity/Vol] 111 U/L Normal 38-126 [facility] ([place] Comment on above: Performed By: #### A KIAH, ADIFF, CMP, GFR, CBC, LIP, MDW ####[address] [address] ALT [Catalytic activity/Vol] 22 U/L Normal 10-49 [facility] ([place] Comment on above: Performed By: #### A KIAH, ADIFF, CMP, GFR, CBC, LIP, MDW ####[address] [address] AST [Catalytic activity/Vol] 29 U/L Normal 8-34 [facility] ([place] Comment on above: Performed By: #### A KIAH, ADIFF, CMP, GFR, CBC, LIP, MDW ####[place] [address] Bili Total 0.40 mg/dL Normal 0.20-1.20 [facility] ([place]) Comment on above: Result Comment: Use of this assay is not recommended for patients undergoing treatment with eltrombopag due to the potential for falsely elevated results. Performed By: #### A KIAH, ADIFF, CMP, GFR, CBC, LIP, REGGIE ####[address] [address] BUN/Creatinine Ratio 9.8 ratio Low 10.0-22.0 [facility] ([place] Comment on above: Performed By: #### A KIAH, ADIFF, CMP, GFR, CBC, LIP, MDW ####[place] [id number] Calcium [Mass/Vol] 9.4 mg/dL Normal 8.7-10.4 [facility] ([place]) Comment on above: Performed By: #### A KIAH, ADIFF, CMP, GFR, CBC, MEGHANA, REGGIE ####[place] [phone] Chloride [Moles/Vol] 105 mmol/L Normal 98-110 [facility] ([place] Comment on above: Performed By: #### A KIAH, ADIFF, CMP, GFR, CBC, REGGIE KOWALSKI ####[place] [id number] CO2 [Moles/Vol] 24 mmol/L Normal 22-32 [facility] ([place] Comment on above: Performed By: #### A KIAH, ADIFF, CMP, GFR, CBC, MEGHANA, REGGIE ####[place] [address] Creatinine [Mass/Vol] 1.12 mg/dL Normal 0.50-1.20 [facility] ([place]) Comment on above: Performed By: #### A KIAH, ADIFF, CMP, GFR, CBC, REGGIE KOWALSKI ####[place] [address] Electrolyte Balance 5.0 mEq/L Normal 4.0-15.0 [facility] ([place]) Comment on above: Performed By: #### A KIAH, ADIFF, CMP, GFR, CBC, LIP, REGGIE ####[address] [address] Globulin 3.4 G/dL Normal 1.5-3.8 [facility] ([place] Comment on above: Performed By: #### A KIAH, ADIFF, CMP, GFR, CBC, REGGIE KOWALSKI ####[address] [address] Glucose [Mass/Vol] 139 mg/dL High 70-110 [facility] ([place] Comment on above: Performed By: #### A KIAH, ADIFF, CMP, GFR, CBC, REGGIE KOWALSKI ####[address] [address] Potassium [Moles/Vol] 4.8 mmol/L Normal 3.5-5.0 [facility] ([place]) Comment on above: Result Comment: Spec imen slightly hemolyzed. Performed By: #### A KIAH, ADIFF, CMP, GFR, CBC, REGGIE KOWALSKI ####[place] [address] Sodium [Moles/Vol] 134 mmol/L Low 136-145 [facility] ([place] Comment on above: Performed By: #### A KIAH, ADIFF, CMP, GFR, CBC, REGGIE KOWALSKI ####[place] [address] Total Protein 7.3 G/dL Normal 5.7-8.2 [facility] ([place]) Comment on above: Result Comment: No te - New Reference Range in effect 20 Performed By: #### A KIAH, ADIFF, CMP, GFR, CBC, REGGIE KOWALSKI ####[address] [address] Urea nitrogen [Mass/Vol] 11.0 mg/dL Normal 8.0-22.0 [facility] ([place] Comment on above: Performed By: #### A KIAH, ADIFF, CMP, GFR, CBC, REGGIE KOWALSKI ####[address] [address] [address] ABD/PELVIS W/ IV CONTRAST ONLYon 01-27-2024 CT ABD/PELVIS W/ IV CONTRAST ONLY ORIGINAL EXAMINATION: CT OF THE ABDOMEN AND PELVIS WITH CONTRAST01/27/2024 11:[address] ABDOMEN/PELVIS WITH CONTRAST TECHNIQUE: CT of the abdomen and pelvis was performed with the administration of intravenous contrast. Multiplanar reformatted images are provided for review. Automated exposure control, iterative reconstruction, and/or weight based adjustment of the mA/kV was utilized to reduce the radiation dose to as low as reasonably achievable. COMPARISON: None HISTORY: ORDERING SYSTEM PROVIDED HISTORY: Reason for Exam: C/O worsensing right sided flank pain and nausea that started on Sunday after her upper and lower GI scope. abdominal pain FINDINGS: There are no lower thoracic findings. Liver: Normal size and density. No mass or biliary dilatation. Gallbladder: Physiologically distended and otherwise unremarkable in appearance. Common duct: Not dilated. Pancreas: No mass, inflammation, calcification or adjacent fluid collection. Stomach and duodenum: No mass or wall thickening. Spleen: No mass and is normal in size. Right Kidney: No hydronephrosis, solid mass or visible stone. Left Kidney: No hydronephrosis, solid mass or visible stone. Adrenal glands: Normal The large and small bowel loops are unremarkable in appearance. There is an anastomotic site in the sigmoid colon. There is a normal appendix in the RIGHT lower quadrant. Retroperitoneum: No lymphadenopathy or hematoma. Aorta: No aneurysm. Urinary bladder: Normal Uterus is surgically absent. Mesentery: No mass or inflammatory change. No ascites or free air. No abdominal wall masses or external hernias There are no suspicious bone lesions. IMPRESSION: Unremarkable CT scan of the abdomen and pelvis. Interpreted by: Bronson Russell MD Preliminary Report By: Bronson Russell MD Electronically signed By Bronson Russell MD Dictated Date: 01/27/2024 11:58:17 AM Prelim Date: 01/27/2024 12:00:19 PM Sign Date: 01/27/2024 12:00:19 PM Ordering Provider: ARACELI Balbuena [facility] ([place]) LABORATORYOrdered By: SYSTEM SYSTEM on 01-27-2024 Albumin BCP dye [Mass/Vol] 3.9 G/dL Normal 3 .2 - 4.8 G/dL ADM SS Albumin/Globulin [Mass ratio] 1.1 {ratio} Normal 0.9 - 1.6 ratio AH ADM SS ALP [Catalytic activity/Vol] 111 U/L Normal 38 - 126 U/L ADM SS ALT No additional P-5'-P [Catalytic activity/Vol] 22 U/L Normal 10 - 49 U/L ADM SS AST [Catalytic activity/Vol] 29 U/L Normal 8 - 34 U/L ADM SS Basophils (Bld) [#/Vol] 0.1 103/mcL Normal 0.0 - 0.3 10^3/mcL Workflow SS Basophils/100 WBC (Bld) 1.1 % Normal 0.0 - 2.5 % Workflow SS Bilirubin [Mass/Vol] 0.40 mg/dL Normal 0.20 - 1.20 mg/dL ADM SS Comment on above: Interpretive Data: U se of this assay is not recommended for patients undergoing treatment with eltrombopag due to the potential for falsely elevated results. Calcium [Mass/Vol] 9.4 mg/dL Normal 8.7 - 10. 4 mg/dL ADM SS Chloride [Moles/Vol] 105 mmol/L Normal 98 - 11 0 mEq/L ADM SS CO2 [Moles/Vol] 24 mmol/L Normal 22 - 32 mEq/L ADM SS Creatinine [Mass/Vol] 1.12 mg/dL Normal 0.50 - 1.20 mg/dL ADM SS Electrolyte Balance 5.0 mEq/L Normal 4.0 - 15 .0 mEq/L ADM SS Eosinophils (Bld) [#/Vol] 0.3 103/mcL Normal 0. 0 - 0.7 10^3/mcL Workflow SS Eosinophils/100 WBC (Bld) 2.5 % Normal 0.0 - 6.0 % Workflow SS Erythrocyte distribution width (RBC) [Ratio] 14.1 % Normal 11.5 - 15.5 % Workflow SS GFR/1.73 sq M.predicted among blacks MDRD (S/P/Bld) [Vol rate/Area] ml/min/1.73sqm Invalid Interpretation Code ADM SS Comment on above: Interpretive Data: GFR Population mean for , Non- Americans Ages 20-29 = 116 mL/min/1.73 sq.m. Ages 30-39 = 107 mL/min/1.73 sq.m. Ages 40-49 = 99 mL/min/1.73 sq.m. Ages 50-59 = 93 mL/min/1.73 sq.m. Ages 60-69 = 85 mL/min/1.73 sq.m. Ages 70+ = 75 mL/min/1.73 sq.m. Chronic Kidney Disease: Less than 60 mL/min/1.73 square meters End Stage Renal Disease: Less than 15 mL/min/1.73 square meters GFR/1.73 sq M.predicted among non-blacks MDRD (S/P/Bld) [Vol rate/Area] 52 ml/min/1.73sqm Invalid Interpretation Code ADM Comment on above: Interpretive Data: GFR Population mean for , Non- Americans Ages 20-29 = 116 mL/min/1.73 sq.m. Ages 30-39 = 107 mL/min/1.73 sq.m. Ages 40-49 = 99 mL/min/1.73 sq.m. Ages 50-59 = 93 mL/min/1.73 sq.m. Ages 60-69 = 85 mL/min/1.73 sq.m. Ages 70+ = 75 mL/min/1.73 sq.m. Chronic Kidney Disease: Less than 60 mL/min/1.73 square meters End Stage Renal Disease: Less than 15 mL/min/1.73 square meters Globulin 3.4 G/dL Normal 1.5 - 3.8 G/dL ADM SS Glucose [Mass/Vol] 139 mg/dL High 70 - 110 mg/dL ADM SS Hematocrit (Bld) [Volume fraction] 41.5 % Normal 34.0 - 46.0 % Workflow SS Hemoglobin (Bld) [Mass/Vol] 14.1 G/dL Normal 12.0 - 16.0 G/dL Workflow SS Lipase [Catalytic activity/Vol] 37 U/L Normal 12 - 53 U/L ADM Comment on above: Interpretive Data: * *Note - New Reference Range in effect 20 Lymphocytes (Bld) [#/Vol] 2.7 103/mcL Normal 0. 9 - 4.3 10^3/mcL Workflow SS Lymphocytes/100 WBC (Bld) 26.6 % Normal 20 .0 - 40.0 % Workflow SS MCH (RBC) [Entitic mass] 30.2 pg Normal 27. 0 - 33.0 pg AH Workflow SS MCHC 34.0 G/dL Normal 32.0 - 36.0 G/dL AH Workflow SS MCV (RBC) [Entitic vol] 89.0 fL Normal 80.0 - 99.0 fL AH Workflow SS Monocyte distribution width Auto (Bld) [Entitic vol] 19.63 1 Normal 0.00 - 20.00 AH Workflow SS Comment on above: Result Comment: For ED adult patients suspected of sepsis, MDW<=20.0 does not rule out sepsis or risk of sepsis Monocytes (Bld) [#/Vol] 0.7 103/mcL Normal 0.1 - 1.4 10^3/mcL AH Workflow SS Monocytes/100 WBC (Bld) 6.8 % Normal 2.0 - 13.0 % AH Workflow SS Neutrophils (Bld) [#/Vol] 6.4 103/mcL Normal 2. 3 - 8.1 10^3/mcL AH Workflow SS Neutrophils/100 WBC (Bld) 63.0 % Normal 50 .0 - 75.0 % AH Workflow SS Platelet mean volume (Bld) [Entitic vol] 8.5 fL Normal 6.6 - 10.5 fL AH Workflow SS Platelets (Bld) [#/Vol] 235 103/mcL Normal 150 - 450 10^3/mcL AH Workflow SS Potassium [Moles/Vol] 4.8 mmol/L Normal 3.5 - 5.0 mEq/L ADM SS Comment on above: Result Comment: Spec imen slightly hemolyzed. Protein [Mass/Vol] 7.3 G/dL Normal 5.7 - 8.2 G/dL ADM SS Comment on above: Interpretive Data: * *Note - New Reference Range in effect 20 RBC (Bld) [#/Vol] 4.67 106/mcL Normal 4.10 - 5.3 0 10^6/mcL AH Workflow SS Sodium [Moles/Vol] 134 mmol/L Low 136 - 145 mEq/L AH ADM SS Urea nitrogen [Mass/Vol] 11.0 mg/dL Normal 8.0 - 22.0 mg/dL AH ADM SS Urea nitrogen/Creatinine [Mass ratio] 9.8 ratio Low 10.0 - 22.0 ratio AH ADM SS WBC (Bld) [#/Vol] 10.2 103/mcL Normal 4.5 - 10.8 10^3/mcL AH Workflow SS LABORATORYOrdered By: Cenie Simmers-Escalona on 01-27-2024 Appearance (U) Cloudy *ABN* (01/27/24 10:45 AM) Invalid Interpretation Code Clear AH Auto Urine SS Bilirubin Ql (U) Negative (01/27/24 10:45 AM) Normal Neg-Trace AH Auto Urine SS Color (U) Yellow (01/27/24 10:45 AM) Normal AH Auto Urine SS Glucose Test strip (U) [Mass/Vol] Negative Normal Negative AH Auto Urine SS Hemoglobin Auto test strip (U) [Mass/Vol] Negative (01/27/24 10:45 AM) Normal Neg-Trace AH Auto Urine SS Ketones Ql (U) Trace mg/dL Normal Neg-Trace AH Auto Urine SS UA Leuk Est Negative (01/27/24 10:45 AM) Normal Negative AH Auto Urine SS UA Nitrite Negative (01/27/24 10:45 AM) Normal Negative AH Auto Urine SS UA pH 6.0 (01/27/24 10:45 AM) Normal 5.0 - 8.0 AH Auto Urine SS UA Protein Negative Normal Negative AH Auto Urine SS UA Spec Grav 1.025 (01/27/24 10:45 AM) Normal 1.006-1.029 AH Auto Urine SS UA Specimen Type Clean Catch (01/27/24 10:45 AM) Normal AH Auto Urine SS UA Urobilinogen 1.0 E.U./dL Normal 0.2-1.0 AH Auto Urine SS LABORATORYOrdered By: Delia on 01-27-2024 Bacteria LM.HPF (Urine sed) [#/Area] 2 /[HPF] Invalid Interpretation Code Negative AH Auto Urine SS UA RBC Rare /HPF Normal 0-2 AH Auto Urine SS UA Squam Epithelial 10-20 /HPF Normal 0-20 AH Au to Urine SS WBC LM.HPF (Urine sed) [#/Area] Rare /HPF Normal 0-5 AH Auto Urine SS LIPon 01-27-2024 Lipase Level 37 U/L Normal 12-53 [facility] ([place]) Comment on above: Result Comment: No te - New Reference Range in effect 20 Performed By: #### A KIAH, ADIFF, CMP, GFR, CBC, LIP, MDW ####[place] [address] UAon 01-27-2024 Color (U) Yellow Normal [facility] ([place]) Comment on above: Performed By: #### U A, UAMIC ####[place] [address] Glucose (U) [Mass/Vol] Negative Normal Negative [facility] ([place]) Comment on above: Performed By: #### U A, UAMIC ####[place] [address] Ketones Ql (U) Trace Normal Neg-Trace [facility] ([place] Comment on above: Performed By: #### U A, UAMIC ####[place] [address] UA Appear Cloudy Abnormal Clear [facility] ([place] Comment on above: Performed By: #### U A, UAMIC ####[place] [address] UA Blood Negative Normal Neg-Trace [facility] ([place] Comment on above: Performed By: #### U A, UAMIC ####[place] [address] UA Leuk Est Negative Normal Negative [facility] ([place] Comment on above: Performed By: #### U A, UAMIC ####[place] [address] UA Nitrite Negative Normal Negative [facility] ([place] Comment on above: Performed By: #### U A, UAMIC ####[place] [address] UA pH 6.0 Normal 5.0 - 8.0 [facility] ([place] Comment on above: Performed By: #### U A, UAMIC ####[place] [address] UA Protein Negative Normal Negative [facility] ([place] Comment on above: Performed By: #### U A, UAMIC ####[place] [address] UA Spec Grav 1.025 Normal 1.006-1.029 [facility] ([place] Comment on above: Performed By: #### U A, UAMIC ####[address] [address] UA Specimen Type Clean Catch Normal [facility] ([place] Comment on above: Performed By: #### U A, UAMIC ####[address] [address] UA Urobilinogen 1.0 E.U./dL Normal 0.2-1.0 [facility] ([place] Comment on above: Performed By: #### U A, UAMIC ####[place] [address] Urobilinogen (U) [Mass/Vol] Negative Normal Neg-Trace [facility] ([place] Comment on above: Performed By: #### U A, UAMIC ####[place] [address] UAMICon 01-27-2024 UA Bacteria 2+ /hpf Abnormal Negative [facility] ([place] Comment on above: Performed By: #### U A, UAMIC ####[place] [address] UA RBC Rare Normal 0-2 [facility] ([place] Comment on above: Performed By: #### U A, UAMIC ####[place] [address] UA Squam Epithelial 10-20 Normal 0-20 [facility] ([place]) Comment on above: Performed By: #### U A, UAMIC ####[place] [address] UA WBC Rare Normal 0-5 [facility] ([place] Comment on above: Performed By: #### U A, UAMIC ####[place] [address] Absolute lymphocyte countOrd ered By: Naeem Cole on 01-11-2024 Lymphocytes Auto (Unsp spec) [#/Vol] 1.94 10*3/uL 0.83-4.51 [facility] Albumin Elph [Mass/Vol]Order ed By: Naeem Cole on 01-11-2024 Albumin [Mass/Vol] 3.5 g/dL 2.9-4.4 [facility] Aldolase ser/plasOrdered By: Naeem Cole on 01-11-2024 Aldolase [Catalytic activity/Vol] 3.8 mU/mL 3.3-10.3 [facility] Atypical perinuclear antineu trophil cytoplasmic antibodies measurementOrdered By: Naeem Cole on 01-11-2024 Neutrophil cytoplasmic Ab.perinuclear.atypical IF (S) [Titer] <1:20 titer Neg:<1:20 [facility] Comment on above: *Additional results available. Contact laboratory/see report*Serum is slightly lipemic.The atypical pANCA pattern has been observed in asignificant percentage of patients with ulcerative colitis,primary sclerosing cholangitis and autoimmune hepatitis. Automated lymphocyte count a s percentage of total leukocytesOrdered By: Naeem Cole on 01-11-2024 Lymphocytes/100 WBC Auto (Unsp spec) 22.2 % 19-41 [facility] Basophil percentageOrdered B y: Naeem Cole on 01-11-2024 Basophils/100 WBC (Bld) 0.8 % 0-1 [facility] Eosinophils/100 WBC (Bld) 5.4 % 0-5 [facility] Hemoglobin (Bld) [Mass/Vol] 14.6 g/dL 12.0-15.0 [facility] Monocytes/100 WBC (Bld) 6.2 % 0-10 [facility] Neutrophils (Bld) [#/Vol] 5.7 10*3/uL 2.0-7.7 [facility] Neutrophils/100 WBC (Bld) 65.2 % 47-70 [facility] Triglyceride [Mass/Vol] 457 mg/dL <199 [facility] Comment on above: The drugs N-Acetylcy steine and Metamizole may falsely depress this assay. TRIGLYCERIDE IS GREATER THAN 400 mg/dL. LDL RESULT IS INVALID AND WILL NOT BE REPORTED.Serum Triglycerides Reference Interval Normal <150 mg/dL Borderline high 150 - 199 mg/dL High 200 - 499 mg/dL Very High > or = 500 mg/dL WBC (Bld) [#/Vol] 8.7 10*3/uL 4.4-11.0 [facility] Chitobioside IgA antibody as sayOrdered By: Naeem Cole on 01-11-2024 Chitobioside IgA IA Qn 26 units 0-90 [facility] Comment on above: Negative: <80 Equivo maida: 80-90 Positive: >90 Chocolate IgE serumOrdered B y: Naeemsatnam Cole on 01-11-2024 Chocolate IgE Qn (S) <0.10 kU/L Class 0 [facility] Determination of erythrocyte mean corpuscular volume (MCV)Ordered By: Naeem Cole on 01-11-2024 MCV (RBC) [Entitic vol] 89.3 fL 81-99 [facility] Erythrocyte distribution wid th ratioOrdered By: Naeem Cole on 01-11-2024 Erythrocyte distribution width (RBC) [Ratio] 12.8 % 11.6-14.6 [facility] Erythrocyte distribution wid th standard deviationOrdered By: Naeem Cole on 01-11-2024 Erythrocyte distribution width (RBC) [Entitic vol] 41.7 fL 35.1-43.9 [facility] Erythrocyte sedimentation ra teOrdered By: Naeem Cole on 01-11-2024 ESR (Bld) [Velocity] 17 mm/h 0-30 [facility] Hematocrit Auto (Bld) [Volum e fraction]Ordered By: Naeem Cole on 01-11-2024 Hematocrit (Bld) [Volume fraction] 43.3 % 37-47 [facility] Hemoglobin in reticulocytes (mass per reticulocyte)Ordered By: Naeem Cole on 01-11-2024 Hemoglobin (Reticulocytes) [Entitic mass] 33.4 pg 30-35 [facility] Immature granulocytes/100 WB C Auto (Bld)Ordered By: Naeem Cole on 01-11-2024 Immature granulocytes/100 WBC (Bld) 0.200 % 0.0-0.9 [facility] Comment on above: IG% - Immature Granu locytes (promyelocytes, myelocytes and metamyelocytes) > 1% indicates that a LEFT SHIFT is Present. Interpretation of serum or p lasma protein pattern by immunofixation (narrative resultOrdered By: Naeem Cole on 01-11-2024 Protein Fractions Immunofixation Ehsan [Interp] Not Observed g/dL Not Observed [facility] Iron measurement (mass/mass) Ordered By: Naeem Cole on 01-11-2024 Iron ([facility] spec) [Mass/Mass] 64 ug/dL 50-170 [facility] Laboratory - Chemistry and C hemistry - challengeOrdered By: Naeem Cole on 01-11-2024 CK [Catalytic activity/Vol] 60 U/L 26-192 [facility] Ferritin [Mass/Vol] 265 ng/mL 8-252 [facility] Laboratory - Hematology and Cell countsOrdered By: Naeem Cole on 01-11-2024 MCH (RBC) [Entitic mass] 30.1 pg 27.0-32.0 [facility] MCHC (RBC) [Mass/Vol] 33.7 g/dL 32-36 [facility] Nucleated RBC/100 WBC (Bld) [Ratio] 0 % 0-5 [facility] Platelet mean volume (Bld) [Entitic vol] 10.1 fL 6.2-12.0 [facility] Platelets (Bld) [#/Vol] 271 10*3/uL 150-450 [facility] Laboratory - Miscellaneous t estsOrdered By: Naeem Cole on 01-11-2024 Laboratory comment Ehsan (Report) Comment . [facility] Comment on above: Pattern is not sugge stive of Inflammatory Bowel Disease Service comment ([facility] spec) [Interp] Comment . [facility] Comment on above: Levels of Specific I gE Class Description of Class ----- < 0.10 0 Negative 0.10 - 0.31 0/I Equivocal/Low 0.32 - 0.55 I Low 0.56 - 1.40 II Moderate 1.41 - 3.90 III High 3.91 - 19.00 IV Very High 19.01 - 100.00 V Very High >100.00 Very High Laminaribioside carbohydrate IgG antibody assayOrdered By: Naeem Cole on 01-11-2024 Laminaribioside IgG IA Qn 4 units 0-60 [facility] Comment on above: Negative:<55 Equivoc al: 55-60 Positive: >60.Previous reported result: 4 unitsEdited by: SOHA on 02/13/24:1447 AMENDED REPORT 02/13/24 1447 [facility] previously reported as: 4 units Negative:<55 Equivocal: 55-60 Positive: >60 No Panel InformationOrdered By: Naeem Friend on 01-11-2024 Addendum Document Comment . [facility] Comment on above: Protein electrophore sis scan will follow via computer,mail, or club former delivery. C-Reactive Protein Extended Range 7.33 mg/L 0.0-3.0 [facility] Comment on above: C-Reactive Protein ( CRP) provides useful information for thediagnosis, therapy and monitoring of inflammatory processesand associated diseases. For the evaluation of Relative Riskfor Cardiovascular Disease, a High Sensitivity CRP (HSCRP)should be ordered. Centromere B Antibody <0.2 AI 0.0-0.9 [facility] Endomysial IgA Antibody Negative Negative [facility] Free Triiodothyronine (T3) pg/dL 2.1 pg/mL 2.18-3.98 [facility] Immature Reticulocyte Fraction 10.60 % 3.00-15.90 [facility] Immunoglobulin E 792 IU/mL 6-495 [facility] Immunoglobulin G4 55 mg/dL 2-96 [facility] Immunoglobulin M 88 mg/dL 26-217 [facility] SONIA-1 Antibody <0.2 AI 0.0-0.9 [facility] Mussel Allergen IgE Antibody <0.10 kU/L Class 0 [facility] [employer] Antibody <0.2 AI 0.0-0.9 [facility] Saccharomyces cerevisiae (Myrna)IgG 22 units 0-50 [facility] Comment on above: Negative: <45 Equivo maida: 45-50 Positive: >50 Shrimp Allergen <0.10 kU/L Class 0 [facility] SM Antibody <0.2 AI 0.0-0.9 [facility] SS-A/Ro IgG Antibody < 0.2 AI 0.0-0.9 [facility] SS-B/La IgG Antibody < 0.2 AI 0.0-0.9 [facility] Total Iron Binding Capacity 290 ug/dL 250-450 [facility] Plasma serotonin measurement (mass/volume)Ordered By: Naeem Cole on 01-11-2024 Serotonin (P) [Mass/Vol] 108 ng/mL 31-207 [facility] Comment on above: Performed at: [facility] [id number] [place], [place] [id number] Director: Tacho Dickey PhD, Phone: [phone] at: [facility] [address] [id number] Director: Popeye Padgett MD, Phone: [phone] RBC Auto (Bld) [#/Vol]Ordere d By: Naeemsatnam Cole on 01-11-2024 RBC (Bld) [#/Vol] 4.85 10*6/uL 4.2-5.4 [facility] Reticulocytes Auto (Bld) [#/ Vol]Ordered By: Naeem Cole on 01-11-2024 Reticulocytes/100 RBC (Bld) 1.94 % 0.5-1.5 [facility] Serum DNA double strand anti body assay (units/volume)Ordered By: Naeem Cole on 01-11-2024 DNA double strand Ab Qn (S) [IU]/mL 0-9 [facility] Comment on above: Negative <5 Equivoca l 5 - 9 Positive >9 Serum IgG subclass 1 measure ment (mass/volume)Ordered By: Naeem Cole on 01-11-2024 IgG subclass 1 (S) [Mass/Vol] 622 mg/dL 248-810 [facility] Serum IgG subclass 2 measure ment (mass/volume)Ordered By: Naeem Cole on 01-11-2024 IgG subclass 2 (S) [Mass/Vol] 312 mg/dL 130-555 [facility] Serum IgG subclass 3 measure ment (mass/volume)Ordered By: Naeem Cole on 01-11-2024 IgG subclass 3 (S) [Mass/Vol] 26 mg/dL 15-102 [facility] Serum Scl-70 antibody assay (units/volume)Ordered By: Naeem Cole on 01-11-2024 SCL-70 extractable nuclear Ab Qn (S) <0.2 AI 0.0-0.9 [facility] Serum [id number] measu rement by electrophoresisOrdered By: Naeem Cole on 01-11-2024 Alpha 1 globulin Elph [Mass/Vol] 0.2 g/dL 0.0-0.4 [facility] Alpha 1 globulin Elph [Mass/Vol] 0.9 g/dL 0.4-1.0 [facility] Serum beef IgE antibody assa y (units/volume)Ordered By: Naeem Cole on 01-11-2024 Beef IgE Qn (S) <0.10 kU/L Class 0 [facility] Serum classic neutrophil cyt oplasmic antibody assay (units/volume)Ordered By: Naeem Cole on 01-11-2024 Neutrophil cytoplasmic Ab.classic Qn (S) <1:20 titer Neg:<1:20 [facility] Comment on above: Serum is slightly li pemic. Serum codfish IgE antibody a ssay (units/volume)Ordered By: Naeem Cole on 01-11-2024 Codfish IgE Qn (S) <0.10 kU/L Class 0 [facility] Serum corn IgE antibody assa y (units/volume)Ordered By: Naeem Cole on 01-11-2024 [place] IgE Qn (S) 0.15 kU/L Class 0/I [facility] Serum cow milk IgE antibody assay (units/volume)Ordered By: Naeem Cole on 01-11-2024 Cow milk IgE Qn (S) 0.10 kU/L Class 0/I [facility] Serum globulin measurement ( mass/volume)Ordered By: Naeem Cole on 01-11-2024 Globulin (S) [Mass/Vol] 3.1 g/dL 2.2-3.9 [facility] Serum or plasma IgA measurem ent (mass/volume)Ordered By: Naeem Cole on 01-11-2024 IgA [Mass/Vol] 196 mg/dL 87-352 [facility] Serum or plasma IgG measurem ent (mass/volume)Ordered By: Naeem Cole on 01-11-2024 IgG [Mass/Vol] 995 mg/dL [phone] [facility] IgG [Mass/Vol] Not Reportable [facility] Serum or plasma beta globuli n measurement by electrophoresis (mass/volume)Ordered By: Naeemsatnam Cole on 01-11-2024 Beta globulin Elph [Mass/Vol] 1.0 g/dL 0.7-1.3 [facility] Serum or plasma gamma globul in measurement by electrophoresis (mass/volume)Ordered By: Naeem Cole on 01-11-2024 Gamma globulin Elph [Mass/Vol] 1.0 g/dL 0.4-1.8 [facility] Serum or plasma immunoelectr ophoresis interpretation (nominal result)Ordered By: Naeem Cole on 01-11-2024 Interpretation IEP [Interp] Comment . [facility] Comment on above: No monoclonality det ected. Serum or plasma mannobioside IgG antibody assay by immunoassay (units/volume)Ordered By: Naeem Cole on 01-11-2024 Mannobioside IgG IA Qn 12 units 0-100 [facility] Comment on above: Negative: <90 Equivo maida: 90-100 Positive: >100 This test was developed and its performance characteristics determined by youwho. It has not been cleared or approved by the Food and Drug Administration. The FDA has determined that such clearance or approval is not necessary. Serum or plasma thyroid stim ulating hormone (TSH) measurement (units/volume)Ordered By: Naeem Cole on 01-11-2024 TSH Qn 1.84 uIU/mL 0.358-3.74 [facility] Serum peanut IgE antibody as say (units/volume)Ordered By: Naeem Cole on 01-11-2024 Peanut IgE Qn (S) <0.10 kU/L Class 0 [facility] Serum perinuclear neutrophil cytoplasmic antibody titer by immunofluorescenceOrdered By: Naeem Cole on 01-11-2024 Neutrophil cytoplasmic Ab.perinuclear IF (S) [Titer] <1:20 titer Neg:<1:20 [facility] Comment on above: Serum is slightly li pemic.The presence of positive fluorescence exhibiting P-ANCA orC-ANCA patterns alone is not specific for the diagnosis ofWegener's Granulomatosis (WG) or microscopic polyangiitis.Decisions about treatment should not be based solely onANCA IFA results. The International ANCA Group Consensusrecommends follow up testing of positive sera with both WA-3 and MPO-ANCA enzyme immunoassays. As many as 5% serumsamples are positive only by EIA. Ref. AM J Clin [id number];111:507-513. Serum pork IgE antibody assa y (units/volume)Ordered By: Naeem Cole on 01-11-2024 Pork IgE Qn (S) 2.74 kU/L Class III [facility] Serum salmon IgE antibody as say (units/volume)Ordered By: Naeem Cole on 01-11-2024 [place] IgE Qn (S) <0.10 kU/L Class 0 [facility] Serum soybean IgE antibody a ssay (units/volume)Ordered By: Naeem Cole on 01-11-2024 Soybean IgE Qn (S) <0.10 kU/L Class 0 [facility] Serum tissue transglutaminas e IgA antibody assay (units/volume)Ordered By: Naeem Cole on 01-11-2024 tTG IgA Qn (S) <2 U/mL 0-3 [facility] Comment on above: Negative 0 - 3 Weak Positive 4 - 10 Positive >10 Tissue Transglutaminase (tTG) has been identified as the endomysial antigen. Studies have demonstr- ated that endomysial IgA antibodies have over 99% specificity for gluten sensitive enteropathy. Serum tuna IgE antibody assa y (units/volume)Ordered By: Naeem Cole on 01-11-2024 Tuna IgE Qn (S) <0.10 kU/L Class 0 [facility] Serum wheat IgE antibody ass ay (units/volume)Ordered By: Naeem Cole on 01-11-2024 Wheat IgE Qn (S) <0.10 kU/L Class 0 [facility] Serum whole egg IgE antibody assay (units/volume)Ordered By: Naeem Cole on 01-11-2024 Whole Egg IgE Qn (S) <0.10 kU/L Class [address] [facility] Comment on above: Performed at: [address] [id number] Director: Tacho Dickey PhD, Phone: [phone] at: [address], [place] [id number] Director: Popeye Padgett MD, Phone: [phone] Thin prep Papanicolaou smear with manual screeningOrdered By: Naeem Friend on 01-11-2024 Thin prep Papanicolaou smear with manual screening 1.2 0.7-1.7 [facility] Thin prep Papanicolaou smear with manual screening 7.7 ng/dL 0.0-30.0 [facility] Total protein bloodOrdered B y: Naeem Friend on 01-11-2024 Protein [Mass/Vol] 6.6 g/dL 6.0-8.5 [facility] CBC (POC)on 08-23-2023 Perf Loc - POCT Tested at AM Normal [facility] ([place]) Comment on above: Result Comment: Carola Shah [address] [place], [place] [address] Basophil, Absolute (POC) 0.05 10 3/mcL Normal 0.00-0.2 7 [facility] ([place]) Basophils/100 WBC (Bld) 0.5 % Normal 0.0-2.5 [facility] ([place]) Eosinophil, Absolute (POC) 0.27 10 3/mcL Normal 0.00-0 .65 [facility] ([place]) Eosinophils/100 WBC (Bld) 2.7 % Normal 0.0-6.0 [facility] ([place]) Erythrocyte distribution width (RBC) [Ratio] 12.4 % Normal 11.5-15.5 [facility] [place]) Hematocrit (Bld) [Volume fraction] 42.0 % Normal 34.0-46.0 [facility] [place]) Hemoglobin (POC) 14.3 G/dL Normal 12.0-16.0 [facility] [place]) Imm Granulocyte, Absolute (POC) 0.01 10 3/mcL Normal [facility] [place]) Immature granulocytes/100 WBC (Bld) 0.1 % Normal [facility] [place] Lymphocyte, Absolute (POC) 2.06 10 3/mcL Normal 0.90-4 .32 [facility] [place] Lymphocytes/100 WBC (Bld) 20.5 % Normal 20.0-40.0 [facility] [place]) MCH (RBC) [Entitic mass] 29.9 pg Normal 27.0-33.0 [facility]) MCHC (POC) 34.0 G/dL Normal 32.0-36.0 [facility]) MCV (RBC) [Entitic vol] 87.7 fL Normal 80.0-99.0 [facility]) Monocyte, Absolute (POC) 0.80 10 3/mcL Normal 0.09-1.4 0 [facility]) Monocytes/100 WBC (Bld) 7.9 % Normal 2.0-13.0 [facility]) Neutrophil, Absolute (POC) 6.88 10 3/mcL Normal 2.25-8 .10 [facility]) Neutrophils/100 WBC (Bld) 68.3 % Normal 50.0-75.0 [facility]) Performing Instrument - POCT SYSMEX Normal [facility]) Platelet (POC) 245 10 3/mcL Normal 150-450 [facility]) Platelet mean volume (Bld) [Entitic vol] 9.6 fL Normal 6.6-10.5 [facility]) RBC (POC) 4.79 10 6/mcL Normal 4.50-6.00 [facility]) WBC (POC) 10.07 10 3/mcL Normal 4.50-10.80 [facility] ([place] CT ABDOMEN/PELVIS W/O CONTRA STon 08-23-2023 CT ABDOMEN/PELVIS W/O CONTRAST ORIGINAL EXAMINATION: CT OF THE ABDOMEN AND PELVIS WITHOUT CONTRAST 08/23/2023 5:43 pm TECHNIQUE: CT of the abdomen and pelvis was performed without the administration of intravenous contrast. Multiplanar reformatted images are provided for review. Automated exposure control, iterative reconstruction, and/or weight based adjustment of the mA/kV was utilized to reduce the radiation dose to as low as reasonably achievable. COMPARISON: CT abdomen pelvis 06/20/2023 HISTORY: ORDERING SYSTEM PROVIDED HISTORY: Reason for Exam: PT STATES having bilateral flank and abdominal pain. hx of stones. N/V+ flank pain // hematuria // hx of kidney stones FINDINGS: The heart is normal in size. No pericardial thickening or effusion. Visualized lung bases are clear. The aorta is nonaneurysmal no significant atherosclerotic disease. Incidental retroaortic left renal vein. No adenopathy within the abdomen or pelvis. The liver, gallbladder, spleen, pancreas, bilateral adrenal glands are unremarkable. Few incidental splenic cysts or hemangiomas are noted. Kidneys are symmetric in size. No hydronephrosis or renal calculi. The ureters and bladder are unremarkable. Uterus is surgically removed. Left ovarian follicle. No pneumoperitoneum or free fluid. Colonic anastomosis is noted in the mid pelvis. The large and small bowel are normal in caliber. The appendix is unremarkable. Small fat containing umbilical hernia. No acute osseous abnormality. Degenerative changes the spine most prominent at T12-L1 with disc protrusion with resultant at least mild central canal stenosis. IMPRESSION: No acute abnormality within the abdomen or pelvis. I have personally reviewed the images of this examination and agree with the resident's findings and interpretation. Interpreted by: Umair Pichardo Preliminary Report By: Rehan Gonzalez Electronically signed By Umair Pichardo Dictated Date: 08/23/2023 6:17:50 PM Prelim Date: 08/23/2023 6:22:00 PM Sign Date: 08/23/2023 6:38:17 PM Ordering Provider: VILMA ZEPEDA Normal [facility]) GLU POCon 08-23-2023 Perf Loc - POCT Tested at AM [facility]) Comment on above: Result Comment: [facility] [address], [place] [address] Glucose [Mass/Vol] 113 mg/dL High 70-110 [facility]) Performing Instrument - POCT MASSED1 Normal [facility]) UA (POC)on 08-23-2023 Perf Loc - POCT Tested at AM [facility]) Comment on above: Result Comment: [facility] [address], [place] [address] Appearance (U) Clear Normal Clear [facility] [place]) Bilirubin Ql (U) Negative Normal Neg-Trace [facility] [place]) Color (U) [place] Normal [facility] ([place]) Glucose Ql (U) Negative Normal Negative [facility] [place]) Hemoglobin Ql (U) Large Abnormal Neg-Trace [facility] [place]) Ketones Ql (U) Negative Normal [facility] [place]) Leukocyte esterase Test strip Ql (U) Moderate Abnormal Neg-Trace [facility] ([place]) Nitrite Ql (U) Negative Normal Negative [facility]) Performing Instrument - POCT CLINITEK Normal [facility]) pH (U) 6.0 [pH] Normal 5.0 - 8.0 [facility]) Protein Ql (U) 30 mg/dL Abnormal Neg-30 [facility]) Specific gravity (U) [Rel density] 1.015 Normal 1.006-1.029 [facility]) Urobilinogen Qn (U) 0.2 {Little'U}/dL Normal 0.2-1.0 [facility]) LABORATORYOrdered By: SYSTEM SYSTEM on 01-19-2023 Basophils (Bld) [#/Vol] 0.1 103/mcL Invalid Interpretation Code 0.0 - 0.3 10^3/mcL Workflow SS Basophils/100 WBC (Bld) 1.0 % Invalid Interpretation Code 0.0 - 2.5 % Workflow SS Calcium [Mass/Vol] 9.3 mg/dL Invalid Interpretation Code 8.7 - 10.4 mg/dL ADM SS Chloride [Moles/Vol] 104 mmol/L Invalid Interpretation Code 98 - 110 mEq/L ADM SS CO2 [Moles/Vol] 32 mmol/L Invalid Interpretation Code 22 - 32 mEq/L ADM SS Creatinine [Mass/Vol] 1.14 mg/dL Invalid Interpretation Code 0.50 - 1.20 mg/dL ADM SS Electrolyte Balance 5.0 mEq/L Invalid Interpretation Code 4.0 - 15.0 mEq/L ADM SS Eosinophils (Bld) [#/Vol] 0.4 103/mcL Invali d Interpretation Code 0.0 - 0.7 10^3/mcL Workflow SS Eosinophils/100 WBC (Bld) 6.0 % Invali d Interpretation Code 0.0 - 6.0 % Workflow SS Erythrocyte distribution width (RBC) [Ratio] 13.7 % Invalid Interpretation Code 11.5 - 15.5 % Workflow SS GFR/1.73 sq M.predicted among blacks MDRD (S/P/Bld) [Vol rate/Area] ml/min/1.73sqm Invalid Interpretation Code Chemistry S GFR/1.73 sq M.predicted among non-blacks MDRD (S/P/Bld) [Vol rate/Area] 51 ml/min/1.73sqm Invalid Interpretation Code Chemistry S Glucose [Mass/Vol] 150 mg/dL Invalid Interpretation Code 70 - 110 mg/dL AH ADM SS Hematocrit (Bld) [Volume fraction] 39.1 % Invalid Interpretation Code 34.0 - 46.0 % AH Workflow SS Hemoglobin (Bld) [Mass/Vol] 13.4 G/dL Invalid Interpretation Code 12.0 - 16.0 G/dL AH Workflow SS Lymphocytes (Bld) [#/Vol] 2.3 103/mcL Invali d Interpretation Code 0.9 - 4.3 10^3/mcL AH Workflow SS Lymphocytes/100 WBC (Bld) 33.3 % Invali d Interpretation Code 20.0 - 40.0 % AH Workflow SS MCH (RBC) [Entitic mass] 30.6 pg Invalid Interpretation Code 27.0 - 33.0 pg AH Workflow SS MCHC 34.3 G/dL Invalid Interpretation Code 32.0 - 36.0 G/dL AH Workflow SS MCV (RBC) [Entitic vol] 89.4 fL Invalid Interpretation Code 80.0 - 99.0 fL AH Workflow SS Monocytes (Bld) [#/Vol] 0.6 103/mcL Invalid Interpretation Code 0.1 - 1.4 10^3/mcL AH Workflow SS Monocytes/100 WBC (Bld) 8.0 % Invalid Interpretation Code 2.0 - 13.0 % AH Workflow SS Neutrophils (Bld) [#/Vol] 3.6 103/mcL Invali d Interpretation Code 2.3 - 8.1 10^3/mcL AH Workflow SS Neutrophils/100 WBC (Bld) 51.7 % Invali d Interpretation Code 50.0 - 75.0 % AH Workflow SS Platelet mean volume (Bld) [Entitic vol] 7.9 fL Invalid Interpretation Code 6.6 - 10.5 fL AH Workflow SS Platelets (Bld) [#/Vol] 216 103/mcL Invalid Interpretation Code 150 - 450 10^3/mcL AH Workflow SS Potassium [Moles/Vol] 3.8 mmol/L Invalid Interpretation Code 3.5 - 5.0 mEq/L ADM SS RBC (Bld) [#/Vol] 4.38 106/mcL Invalid Interpretation Code 4.10 - 5.30 10^6/mcL AH Workflow SS Sodium [Moles/Vol] 141 mmol/L Invalid Interpretation Code 136 - 145 mEq/L AH ADM SS Urea nitrogen [Mass/Vol] 13.0 mg/dL Invalid Interpretation Code 8.0 - 22.0 mg/dL ADM SS Urea nitrogen/Creatinine [Mass ratio] 11.4 ratio Invalid Interpretation Code 10.0 - 22.0 ratio AH ADM SS WBC (Bld) [#/Vol] 7.0 103/mcL Invalid Interpretation Code 4.5 - 10.8 10^3/mcL Workflow SS LABORATORYOrdered By: Ailyn Hwang on 01-18-2023 Blood Glucose Testing Reason Routine (01/18/23 9:19 PM) [facility] Work Phone: Glucose [Mass/Vol] 160 mg/dL Invalid Interpretation Code 70 - 110 mg/dL [facility] Work Phone: LABORATORYOrdered By: Ezekiel Tomas on 01-18-2023 Glucose [Mass/Vol] 189 mg/dL Invalid Interpretation Code 70 - 110 mg/dL [facility] Work Phone: LABORATORYOrdered By: Nicole Ordaz on 01-18-2023 Blood Glucose Testing Reason Routine (01/18/23 11:16 AM) [facility] Work Phone: Glucose [Mass/Vol] 119 mg/dL Invalid Interpretation Code 70 - 110 mg/dL [facility] Work Phone: LABORATORYOrdered By: Andrew Antoine on 01-18-2023 Blood Glucose Testing Reason Routine (01/18/23 8:39 AM) [facility] Work Phone: LABORATORYOrdered By: Vazquez Melchor on 01-17-2023 Cholesterol [Mass/Vol] 133 mg/dL Invalid Interpretation Code 50 - 199 mg/dL ADM SS Cholesterol in HDL [Mass/Vol] 31 mg/dL Invalid Interpretation Code 40 - 59 mg/dL ADM SS Cholesterol in LDL [Mass/Vol] 45 mg/dL Invalid Interpretation Code 0 - 129 mg/dL ADM SS Triglyceride [Mass/Vol] 283 mg/dL Invalid Interpretation Code 3 - 149 mg/dL ADM SS LABORATORYOrdered By: SYSTEM SYSTEM on 01-17-2023 HbA1c (Bld) [Mass fraction] 6.9 % Invalid Interpretation Code 4.0 - 6.0 % Auto Chem SS LABORATORYOrdered By: SYSTEM SYSTEM on 01-16-2023 Basophils (Bld) [#/Vol] 0.1 103/mcL Invalid Interpretation Code 0.0 - 0.3 10^3/mcL Workflow SS Basophils/100 WBC (Bld) 0.9 % Invalid Interpretation Code 0.0 - 2.5 % Workflow SS Calcium [Mass/Vol] 9.8 mg/dL Invalid Interpretation Code 8.7 - 10.4 mg/dL ADM SS Chloride [Moles/Vol] 104 mmol/L Invalid Interpretation Code 98 - 110 mEq/L ADM SS CO2 [Moles/Vol] 29 mmol/L Invalid Interpretation Code 22 - 32 mEq/L ADM SS Creatinine [Mass/Vol] 1.07 mg/dL Invalid Interpretation Code 0.50 - 1.20 mg/dL ADM SS Electrolyte Balance 5.0 mEq/L Invalid Interpretation Code 4.0 - 15.0 mEq/L ADM SS Eosinophils (Bld) [#/Vol] 0.7 103/mcL Invali d Interpretation Code 0.0 - 0.7 10^3/mcL Workflow SS Eosinophils/100 WBC (Bld) 9.2 % Invali d Interpretation Code 0.0 - 6.0 % Workflow SS Erythrocyte distribution width (RBC) [Ratio] 13.9 % Invalid Interpretation Code 11.5 - 15.5 % Workflow SS GFR/1.73 sq M.predicted among blacks MDRD (S/P/Bld) [Vol rate/Area] ml/min/1.73sqm Invalid Interpretation Code ADM SS GFR/1.73 sq M.predicted among non-blacks MDRD (S/P/Bld) [Vol rate/Area] 55 ml/min/1.73sqm Invalid Interpretation Code ADM SS Glucose [Mass/Vol] 165 mg/dL Invalid Interpretation Code 70 - 110 mg/dL ADM SS Hematocrit (Bld) [Volume fraction] 43.3 % Invalid Interpretation Code 34.0 - 46.0 % Workflow SS Hemoglobin (Bld) [Mass/Vol] 14.7 G/dL Invalid Interpretation Code 12.0 - 16.0 G/dL AH Workflow SS Lymphocytes (Bld) [#/Vol] 2.2 103/mcL Invali d Interpretation Code 0.9 - 4.3 10^3/mcL AH Workflow SS Lymphocytes/100 WBC (Bld) 27.1 % Invali d Interpretation Code 20.0 - 40.0 % AH Workflow SS MCH (RBC) [Entitic mass] 30.0 pg Invalid Interpretation Code 27.0 - 33.0 pg AH Workflow SS MCHC 33.9 G/dL Invalid Interpretation Code 32.0 - 36.0 G/dL AH Workflow SS MCV (RBC) [Entitic vol] 88.6 fL Invalid Interpretation Code 80.0 - 99.0 fL AH Workflow SS Monocyte distribution width Auto (Bld) [Entitic vol] 16.83 Invalid Interpretation Code 0.00 - 20.00 AH Workflow SS Comment on above: Result Comment: For ED adult patients suspected of sepsis, MDW<=20.0 does not rule out sepsis or risk of sepsis Monocytes (Bld) [#/Vol] 0.5 103/mcL Invalid Interpretation Code 0.1 - 1.4 10^3/mcL AH Workflow SS Monocytes/100 WBC (Bld) 6.4 % Invalid Interpretation Code 2.0 - 13.0 % AH Workflow SS Neutrophils (Bld) [#/Vol] 4.5 103/mcL Invali d Interpretation Code 2.3 - 8.1 10^3/mcL AH Workflow SS Neutrophils/100 WBC (Bld) 56.4 % Invali d Interpretation Code 50.0 - 75.0 % AH Workflow SS Platelet mean volume (Bld) [Entitic vol] 8.1 fL Invalid Interpretation Code 6.6 - 10.5 fL AH Workflow SS Platelets (Bld) [#/Vol] 227 103/mcL Invalid Interpretation Code 150 - 450 10^3/mcL AH Workflow SS Potassium [Moles/Vol] 3.7 mmol/L Invalid Interpretation Code 3.5 - 5.0 mEq/L AH ADM SS RBC (Bld) [#/Vol] 4.88 106/mcL Invalid Interpretation Code 4.10 - 5.30 10^6/mcL AH Workflow SS Sodium [Moles/Vol] 138 mmol/L Invalid Interpretation Code 136 - 145 mEq/L AH ADM SS Troponin I.cardiac DL <= 0.01 ng/mL [Mass/Vol] 2.50 ng/L Invalid Interpretation Code 0.00 - 34.00 ng/L ADM SS Urea nitrogen [Mass/Vol] 11.0 mg/dL Invalid Interpretation Code 8.0 - 22.0 mg/dL ADM SS Urea nitrogen/Creatinine [Mass ratio] 10.3 ratio Invalid Interpretation Code 10.0 - 22.0 ratio ADM SS WBC (Bld) [#/Vol] 8.1 103/mcL Invalid Interpretation Code 4.5 - 10.8 10^3/mcL Workflow SS LABORATORYOrdered By: Leti reyes on 01-16-2023 FLUAV RNA RHETT+probe Ql (Resp) Negative 3 (01/16/23 7:44 PM) Invalid Interpretation Code Negative Auto Viro/Sero SS Comment on above: Result Comment: Note s FLUBV RNA RHETT+probe Ql (Resp) Negative 4 (01/16/23 7:44 PM) Invalid Interpretation Code Negative Auto Viro/Sero SS Comment on above: Result Comment: Note s RSV PCR Negative 5 (01/16/23 7:44 PM) Invalid Interpretation Code Negative Auto Viro/Sero SS Comment on above: Result Comment: Note s SARS-CoV-2 (COVID-19) RNA RHETT+probe Ql (Resp) Negative 2 (01/16/23 7:44 PM) Invalid Interpretation Code Negative Auto Viro/Sero SS Comment on above: Result Comment: Note s SARS-CoV-2 (COVID-19) RT-PCR on 06-14-2022 SARS-CoV-2 (COVID-19) RNA RHETT+probe Ql (Unsp spec) Negative Normal [facility] Comment on above: Order Comment: Is th is a pre-procedure screening test?->No Release to patient->Automatic [id number]&Nasal swab Result Comment: NEGA TIVE: SARS-CoV-2 RNA was NOT detected - Interpretation: A negative result indicates severe acute respiratory syndrome coronavirus 2 (SARS-CoV-2) RNA was not detected. Negative results do not preclude SARS-CoV-2 infection and should not be used as the sole basis for patient management decisions. Negative results must be combined with clinical observations, patient history, and epidemiological information. The possibility of a false negative result should be considered if the patient's recent exposures or clinical presentation suggest that SARS-CoV-2 infection is possible, and diagnostic tests for other causes of illness are negative. If SARS-CoV-2 infection is still suspected, re-testing should be considered. - Method: Real-time reverse transcriptase PCR amplification for the qualitative detection of the ORF1 a/b non-structural region that is unique to SARS-CoV-2 and a conserved region in the structural protein envelope E-gene for blancas-Sarbecovirus detection using the Jordan SARS-CoV-2 assay on the [employer] System. - Comment: This test has received FDA Emergency Use Authorization (EUA) and has been verified by [facility]. This test is only authorized for the duration of the public health emergency declaration and the circumstances that exist to justify the authorization of the emergency use of in vitro diagnostic tests for the detection of SARS-CoV-2 virus and/or diagnosis of COVID-19 infection under section 564(b)(1) of the Act, 21 U.S.C. 360bbb-3(b)(1), unless the authorization is terminated or revoked sooner. This test has not been FDA cleared or approved. Results should be used in conjunction with clinical findings, and should not form the sole basis for a diagnosis or treatment decision. - Fact Sheets for this EUA can be found at the following links: For Healthcare Providers: www.fda.gov/media/328413/download For Patients: www.fda.gov/media/646609/download - Reference Value: Negative Performed By: #### C OVID #### [address] [id number] [place] SARS CoV-2 RT PCR Not detected Normal [facility] Comment on above: Order Comment: Is th is a pre-procedure screening test?->No Release to patient->Automatic 60904&Nasal swab Performed By: #### C OVID #### [address] [address] SARS-CoV-2 (COVID-19) RT-PCR on 06-13-2022 Date of Symptom Onset [id number] Normal [facility] Comment on above: Order Comment: Is th is a pre-procedure screening test?->No Release to patient->Automatic [id number]&Nasal swab Performed By: #### C OVID #### [place] [address] ICU? No Normal [facility] Comment on above: Order Comment: Is th is a pre-procedure screening test?->No Release to patient->Automatic [id number]&Nasal swab Performed By: #### C OVID #### [place] [address] ? Unknown Normal [facility] Comment on above: Order Comment: Is th is a pre-procedure screening test?->No Release to patient->Automatic 19544&Nasal swab Performed By: #### C OVID #### [place] [address] Resident in [facility] setting? No Normal [facility] Comment on above: Order Comment: Is th is a pre-procedure screening test?->No Release to patient->Automatic 34474&Nasal swab Performed By: #### C OVID #### [place] [address] Symptomatic as defined by [facility]? Yes Normal [facility] Comment on above: Order Comment: Is th is a pre-procedure screening test?->No Release to patient->Automatic 18544&Nasal swab Performed By: #### C OVID #### [place] [address] LABORATORYOrdered By: Katie Aggarwal on 02-24-2022 Appearance (U) Hazy *ABN* (02/24/22 10:13 AM) Invalid Interpretation Code AH Auto Urine SS Bacteria LM.HPF (Urine sed) [#/Area] 1 /[HPF] Invalid Interpretation Code Negative/HPF AH Auto Urine SS Bilirubin Ql (U) Negative (02/24/22 10:13 AM) Invalid Interpretation Code Neg-Trace AH Auto Urine SS Color (U) Yellow (02/24/22 10:13 AM) Invalid Interpretation Code AH Auto Urine SS Glucose Test strip (U) [Mass/Vol] Negative Invalid Interpretation Code Negativemg/d L AH Auto Urine SS Hemoglobin Auto test strip (U) [Mass/Vol] Negative (02/24/22 10:13 AM) Invalid Interpretation Code Neg-Trace AH Auto Urine SS Ketones Ql (U) Negative Invalid Interpretation Code Neg-Tracemg/ dL AH Auto Urine SS UA Leuk Est Negative (02/24/22 10:13 AM) Invalid Interpretation Code Negative AH Auto Urine SS UA Nitrite Negative (02/24/22 10:13 AM) Invalid Interpretation Code Negative AH Auto Urine SS UA pH 5.0 (02/24/22 10:13 AM) Invalid Interpretation Code 5.0 - 8.0 AH Auto Urine SS UA Protein Negative Invalid Interpretation Code Negativemg/d L AH Auto Urine SS UA RBC 0-2 /HPF Invalid Interpretation Code 0-2/HPF AH Auto Urine SS UA Spec Grav <=1.005 *ABN* (02/24/22 10:13 AM) Invalid Interpretation Code AH Auto Urine SS UA Specimen Type Clean Catch (02/24/22 10:13 AM) Invalid Interpretation Code AH Auto Urine SS UA Squam Epithelial 3-5 /HPF Invalid Interpretation Code 0-20/HPF AH Auto Urine SS UA Urobilinogen 0.2 E.U./dL Invalid Interpretation Code AH Auto Urine SS WBC LM.HPF (Urine sed) [#/Area] 0-2 /HPF Invalid Interpretation Code 0-5/HPF AH Auto Urine SS LABORATORYOrdered By: SYSTEM SYSTEM on 02-24-2022 Albumin [Mass/Vol] 3.6 G/dL Invalid Interpretation Code 3.2 - 4.8 G/dL AH ADM SS Albumin/Globulin [Mass ratio] 0.9 {ratio} Invalid Interpretation Code 0.9 - 1.6 ratio AH ADM SS ALP [Catalytic activity/Vol] 142 U/L Invalid Interpretation Code 38 - 126 U/L AH ADM SS ALT [Catalytic activity/Vol] 32 U/L Invalid Interpretation Code 10 - 49 U/L AH ADM SS AST [Catalytic activity/Vol] 18 U/L Invalid Interpretation Code 8 - 34 U/L AH ADM SS Base excess Calc (BldMV) [Moles/Vol] 3.0 mEq/L Invalid Interpretation Code 4.0 - 15.0 mEq/L AH ADM SS Basophils (Bld) [#/Vol] 0.10 103/mcL Invalid Interpretation Code 0.00 - 0.27 10^3/mcL AH Remisol SS Basophils/100 WBC (Bld) 1.1 % Invalid Interpretation Code 0.0 - 2.5 % AH Remisol SS Bilirubin [Mass/Vol] 0.40 mg/dL Invalid Interpretation Code 0.20 - 1.20 mg/dL AH ADM SS Calcium [Mass/Vol] 9.9 mg/dL Invalid Interpretation Code 8.4 - 10.1 mg/dL AH ADM SS Chloride [Moles/Vol] 102 mmol/L Invalid Interpretation Code 98 - 110 mEq/L AH ADM SS CO2 [Moles/Vol] 32 mmol/L Invalid Interpretation Code 22 - 32 mEq/L AH ADM SS Creatinine [Mass/Vol] 1.28 mg/dL Invalid Interpretation Code 0.50 - 1.20 mg/dL AH ADM SS Eosinophils (Bld) [#/Vol] 0.60 103/mcL Invali d Interpretation Code 0.00 - 0.65 10^3/mcL AH Remisol SS Eosinophils/100 WBC (Bld) 6.0 % Invali d Interpretation Code 0.0 - 6.0 % AH Remisol SS Erythrocyte distribution width (RBC) [Ratio] 14.2 % Invalid Interpretation Code 11.5 - 15.5 % AH Remisol SS GFR/1.73 sq M.predicted among blacks MDRD (S/P/Bld) [Vol rate/Area] 55 ml/min/1.73sqm Invalid Interpretation Code AH ADM SS GFR/1.73 sq M.predicted among non-blacks MDRD (S/P/Bld) [Vol rate/Area] 45 ml/min/1.73sqm Invalid Interpretation Code AH ADM SS Globulin (S) [Mass/Vol] 4.2 G/dL Invalid Interpretation Code 1.5 - 3.8 G/dL AH ADM SS Glucose [Mass/Vol] 146 mg/dL Invalid Interpretation Code 70 - 110 mg/dL AH ADM SS Hematocrit (Bld) [Volume fraction] 41.8 % Invalid Interpretation Code 34.0 - 46.0 % AH Remisol SS Hemoglobin (Bld) [Mass/Vol] 14.3 G/dL Invalid Interpretation Code 12.0 - 16.0 G/dL AH Remisol SS Lipase [Catalytic activity/Vol] 37 U/L Invalid Interpretation Code 12 - 53 U/L AH ADM SS Lymphocytes (Bld) [#/Vol] 2.20 103/mcL Invali d Interpretation Code 0.90 - 4.32 10^3/mcL AH Remisol SS Lymphocytes/100 WBC (Bld) 21.4 % Invali d Interpretation Code 20.0 - 40.0 % AH Remisol SS MCH (RBC) [Entitic mass] 29.6 pg Invalid Interpretation Code 27.0 - 33.0 pg AH Remisol SS MCHC (RBC) [Mass/Vol] 34.1 G/dL Invalid Interpretation Code 32.0 - 36.0 G/dL AH Remisol SS MCV (RBC) [Entitic vol] 86.9 fL Invalid Interpretation Code 80.0 - 99.0 fL AH Remisol SS Monocytes (Bld) [#/Vol] 0.70 103/mcL Invalid Interpretation Code 0.09 - 1.40 10^3/mcL AH Remisol SS Monocytes/100 WBC (Bld) 6.8 % Invalid Interpretation Code 2.0 - 13.0 % AH Remisol SS Neutrophils (Bld) [#/Vol] 6.70 103/mcL Invali d Interpretation Code 2.25 - 8.10 10^3/mcL AH Remisol SS Neutrophils/100 WBC (Bld) 64.7 % Invali d Interpretation Code 50.0 - 75.0 % AH Remisol SS Platelet mean volume (Bld) [Entitic vol] 7.8 fL Invalid Interpretation Code 6.6 - 10.5 fL AH Remisol SS Platelets (Bld) [#/Vol] 227 103/mcL Invalid Interpretation Code 150 - 450 10^3/mcL AH Remisol SS Potassium [Moles/Vol] 4.0 mmol/L Invalid Interpretation Code 3.5 - 5.0 mEq/L AH ADM SS Protein [Mass/Vol] 7.8 G/dL Invalid Interpretation Code 6.0 - 8.5 G/dL AH ADM SS RBC (Bld) [#/Vol] 4.81 106/mcL Invalid Interpretation Code 4.10 - 5.30 10^6/mcL AH Remisol SS Sodium [Moles/Vol] 137 mmol/L Invalid Interpretation Code 136 - 145 mEq/L AH ADM SS Urea nitrogen [Mass/Vol] 14.0 mg/dL Invalid Interpretation Code 8.0 - 22.0 mg/dL ADM SS Urea nitrogen/Creatinine [Mass ratio] 10.9 ratio Invalid Interpretation Code 10.0 - 22.0 ratio ADM SS WBC (Bld) [#/Vol] 10.30 103/mcL Invalid Interpretation Code 4.50 - 10.80 10^3/mcL Remisol SS LABORATORYOrdered By: SYSTEM SYSTEM on 02-10-2022 25-hydroxyvitamin D3 [Mass/Vol] 43.4 ng/mL Invalid Interpretation Code ADM SS C peptide [Mass/Vol] 4.83 ng/mL Invalid Interpretation Code 0.81 - 3.85 ng/mL ADM SS Calcium [Mass/Vol] 9.5 mg/dL Invalid Interpretation Code 8.7 - 10.4 mg/dL ADM SS Chloride [Moles/Vol] 105 mmol/L Invalid Interpretation Code 98 - 110 mEq/L ADM SS CO2 [Moles/Vol] 28 mmol/L Invalid Interpretation Code 22 - 32 mEq/L ADM SS Creatinine [Mass/Vol] 1.10 mg/dL Invalid Interpretation Code 0.50 - 1.20 mg/dL ADM SS DHEA-S [Mass/Vol] 198.49 ug/dL Invalid Interpretation Code 25.90 - 460.20 mcg/dL ADM SS Electrolyte Balance 10.0 mEq/L Invalid Interpretation Code 4.0 - 15.0 mEq/L ADM SS GFR/1.73 sq M.predicted among blacks MDRD (S/P/Bld) [Vol rate/Area] ml/min/1.73sqm Invalid Interpretation Code Chemistry S GFR/1.73 sq M.predicted among non-blacks MDRD (S/P/Bld) [Vol rate/Area] 54 ml/min/1.73sqm Invalid Interpretation Code Chemistry S Glucose [Mass/Vol] 103 mg/dL Invalid Interpretation Code 70 - 110 mg/dL ADM SS Potassium [Moles/Vol] 3.7 mmol/L Invalid Interpretation Code 3.5 - 5.0 mEq/L ADM SS Prolactin [Mass/Vol] 8.2 ng/mL Invalid Interpretation Code 2.0 - 30.0 ng/mL ADM SS Sodium [Moles/Vol] 143 mmol/L Invalid Interpretation Code 136 - 145 mEq/L ADM SS Testosterone [Mass/Vol] 41.31 ng/dL Invalid Interpretation Code AH ADM SS TPO Ab IA Qn unit/mL Invalid Interpretation Code 0 - 60 unit/mL AH ADM SS Urea nitrogen [Mass/Vol] 13.0 mg/dL Invalid Interpretation Code 8.0 - 22.0 mg/dL ADM SS Urea nitrogen/Creatinine [Mass ratio] 11.8 ratio Invalid Interpretation Code 10.0 - 22.0 ratio AH ADM SS Comp Metabolic Panelon 04-21 ALT [Catalytic activity/Vol] 31 U/L Normal 0-34 [facility] Comment on above: Result Comment: The ALT test is performed by an updated assay method. Please note that the reference intervals have been changed and are now sex specific. Performed By: #### H LUIS M JACKSON3 #### [address] [address] [place] [address] Calcium [Mass/Vol] 9.2 mg/dL Normal 8.4-10.4 [facility] Comment on above: Performed By: #### H LUIS M JACKSON3 #### [address] [address] [place] [address] ALP [Catalytic activity/Vol] 135 U/L High 38-126 [facility] Comment on above: Performed By: #### H LUIS M JACKSNO3 #### [address] [address] [place] [address] Anion gap [Moles/Vol] 10 Normal [facility] Comment on above: Performed By: #### H LUIS M JACKSON3 #### [address] [address] [place] [address] AST [Catalytic activity/Vol] 31 U/L Normal 15-46 [facility] Comment on above: Performed By: #### H LUIS M JACKSON3 #### [address] [address] [place] [address] Bilirubin [Mass/Vol] 0.5 mg/dL Normal 0.2-1.3 [facility] Comment on above: Performed By: #### H LUIS M JACKSON3 #### [address] [address] [place] [address] CO2 [Moles/Vol] 24 mmol/L Normal 22-30 [facility] Comment on above: Performed By: #### H LUIS M JACKSON3 #### [facility] [address] [place] [address] Creatinine [Mass/Vol] 0.75 mg/dL Normal 0.52-1.25 [facility] Comment on above: Performed By: #### H LUIS M JACKSON3 #### [facility] [address] [place] [address] GFR/1.73 sq M predicted among blacks MDRD (S/P/Bld) [Vol rate/Area] mL/min/{1.73_m2} Normal >60 [facility] Comment on above: Performed By: #### H LUIS M JACKSON3 #### [facility] [address] [place] [address] GFR/1.73 sq M predicted among non-blacks MDRD (S/P/Bld) [Vol rate/Area] mL/min/{1.73_m2} Normal >60 [facility] Comment on above: Result Comment: KDIG O guidelines provide the following GFR categories: Stage GFR(ml/min/1.73 m2) Terms G1 >=90 Normal or high G2 60-89 Mildly decreased* G3a 45-59 Mildly to moderately decreased G3b 30-44 Moderately to severely decreased G4 15-29 Severely decreased G5 <15 Kidney failure *Relative to young adult level. In the absence of evidence of kidney damage, neither GFR category G1 nor G2 fulfill the criteria for CKD. The CKD-EPI equation is validated in individuals 18 years of age and older. Currently the best equation for estimating glomerular filtration rate (GFR) from serum creatinine in children is the Bedside Calhoun equation. It is less accurate in patients with extremes of muscle mass, restriction of dietary protein, ingestion of creatine, extra-renal metabolism of creatinine, or treatment with medications that affect renal tubular creatinine secretion. Performed By: #### H LUIS M JACKSON3 #### [facility] [address] [place] [address] Glucose [Mass/Vol] 200 mg/dL High 70-100 [facility] Comment on above: Performed By: #### H LUIS M JACKSON3 #### [facility] [address] [place] [address] Protein [Mass/Vol] 7.4 g/dL Normal 6.3-8.2 [facility] Comment on above: Performed By: #### H LUIS M JACKSON3 #### [facility] [address] [place] [address] Urea nitrogen [Mass/Vol] 17 mg/dL Normal 7-20 [facility] Comment on above: Performed By: #### H LUIS M JACKSON3 #### [facility] [address] [place] [address] Potassium [Moles/Vol] 4.1 mmol/L Normal 3.5-5.1 [facility] Comment on above: Performed By: #### H LUIS M JACKSON3 #### [facility] [address] [place] [address] Sodium [Moles/Vol] 137 mmol/L Normal 135-145 [facility] Comment on above: Performed By: #### H LUIS M JACKSON3 #### [facility] [address] [place] [address] Albumin [Mass/Vol] 4.0 g/dL Normal 3.5-5.0 [facility] Comment on above: Performed By: #### H LUIS M JACKSON3 #### [facility] [address] [place] [address] Chloride [Moles/Vol] 103 mmol/L Normal 98-107 [facility] Comment on above: Performed By: #### H LUIS M JACKSON3 #### [facility] [address] [place] [address] Comprehensive Metabolic Pane aby 04-21-2020 Albumin [Mass/Vol] 4.0 g/dL 3.5 - 5 g/dL [place], [place] ALP [Catalytic activity/Vol] 135 U/L High 38 - 126 U/L [place] ALT [Catalytic activity/Vol] 31 U/L 0 - 34 U/L [place] Comment on above: The ALT test is perf ormed by an updated assay method. Please note that the reference intervals have been changed and are now sex specific. Anion gap [Moles/Vol] 10 mmol/L [place], [place] AST [Catalytic activity/Vol] 31 U/L 15 - 46 U/L [place] Bilirubin Ql (U) 0.5 mg/dL 0.2 - 1.3 mg/dL [place] Calcium [Mass/Vol] 9.2 mg/dL 8.4 - 10. 4 mg/dL [place] Chloride [Moles/Vol] 103 mmol/L 98 - 10 7 mmol/L [place] CO2 [Moles/Vol] 24 mmol/L 22 - 30 mmol/L [place] Creatinine [Mass/Vol] 0.75 mg/dL 0.52 - 1.25 mg/dL [place] EGFR IF NonAfrican Macanese >90.0 >60 mL/min [place] Comment on above: KDIGO guidelines pro vide the following GFR categories: Stage GFR(ml/min/1.73 m2) Terms G1 >=90 Normal or high G2 60-89 Mildly decreased* G3a 45-59 Mildly to moderately decreased G3b 30-44 Moderately to severely decreased G4 15-29 Severely decreased G5 <15 Kidney failure *Relative to young adult level. In the absence of evidence of kidney damage, neither GFR category G1 nor G2 fulfill the criteria for CKD. The CKD-EPI equation is validated in individuals 18 years of age and older. Currently the best equation for estimating glomerular filtration rate (GFR) from serum creatinine in children is the Bedside Calhoun equation. It is less accurate in patients with extremes of muscle mass, restriction of dietary protein, ingestion of creatine, extra-renal metabolism of creatinine, or treatment with medications that affect renal tubular creatinine secretion. GFR/1.73 sq M predicted among blacks MDRD (S/P/Bld) [Vol rate/Area] mL/min/{1.73_m2} >60 mL/min [place] Glucose [Mass/Vol] 200 mg/dL High 70 - 100 mg/dL [place] Interpretation and review of laboratory results Abnormal [place] Potassium [Moles/Vol] 4.1 mmol/L 3.5 - 5.1 mmol/L [place] Protein [Mass/Vol] 7.4 g/dL 6.3 - 8.2 g/dL [place] Sodium [Moles/Vol] 137 mmol/L 135 - 145 mmol/L [place] Urea nitrogen [Mass/Vol] 17 mg/dL 7 - 20 mg/d L [place] Test Performed by [facility], [facility] [place] [address] [place], [place] Hemogram (CBC) w/Auto Diffon 04-21-2020 Absolute Baso # 0.1 10*3/uL 0 - 0.2 10*3/uL [place] Absolute Neut # 3.2 10*3/uL 1.8 - 7 10*3/uL [place] Basophils/100 WBC (Bld) 1.2 % 0 - 2 % [place] Eosinophils (Bld) [#/Vol] 0.5 10*3/uL 0 - 0.5 10*3/uL [place] Eosinophils/100 WBC (Bld) 8.0 % High 1 - 6 % [place] Erythrocyte distribution width (RBC) [Ratio] 13.8 % 11.5 - 14.5 % [place] Granulocytes/100 WBC (Bld) 51.8 % 40 - 80 % [place] Hematocrit (Bld) [Volume fraction] 42.0 % 35 - 47 % [place] Hemoglobin (Bld) [Mass/Vol] 14.4 g/dL 11.7 - 16 g/dL [place] Interpretation and review of laboratory results Abnormal [place] Lymphocytes (Bld) [#/Vol] 1.9 10*3/uL 1 - 4.3 10*3/uL [place] Lymphocytes/100 WBC (Bld) 31.1 % 20 - 40 % [place] MCH (RBC) [Entitic mass] 30.4 pg 26 - 34 pg [place] MCHC (RBC) [Mass/Vol] 34.2 % 32 - 36 % [place] MCV (RBC) [Entitic vol] 88.8 fL 79 - 98 fL [place] Monocytes (Bld) [#/Vol] 0.5 10*3/uL 0 - 0.8 10*3/uL [place] Monocytes/100 WBC (Bld) 7.9 % 2 - 10 % [place] Platelet mean volume (Bld) [Entitic vol] 8.0 fL 7.4 - 10.4 fL [place] Platelets (Bld) [#/Vol] 192 10*3/uL 140 - 440 10*3/uL [place] RBC (Bld) [#/Vol] 4.73 10*6/uL 3.8 - 5.2 10*6/uL [place] WBC (Bld) [#/Vol] 6.2 10*3/uL 3.6 - 10.7 10*3/uL [place] Test Performed by [facility], [address] [place] [address] [place] Hemogram w/ Autodiffon 04-21 Abs Baso Cnt 0.1 10*3/uL Normal 0.0-0.2 [facility] Comment on above: Performed By: #### H LUIS M JACKSON3 #### [address] [address] [place] [address] Abs Neutrophile Cnt 3.2 10*3/uL Normal 1.8-7.0 [facility] Comment on above: Performed By: #### H LUIS M JACKSON3 #### [address] [address] [place] [address] Basophils/100 WBC (Bld) 1.2 % Normal 0.0-2.0 [facility] Comment on above: Performed By: #### H LUIS M JACKSON3 #### [address] [address] [place] [address] Eosinophils (Bld) [#/Vol] 0.5 10*3/uL Normal 0.0-0.5 [facility] Comment on above: Performed By: #### H LUIS M JACKSON3 #### [address] [address] [place] [address] Eosinophils/100 WBC (Bld) 8.0 % High 1.0-6.0 [facility] Comment on above: Performed By: #### H RENETTA CMP3 #### [address] [place] [address] Erythrocyte distribution width (RBC) [Ratio] 13.8 % Normal 11.5-14.5 [facility] Comment on above: Performed By: #### H RENETTA CMP3 #### [address] [address] [place] [address] Granulocytes/100 WBC (Bld) 51.8 % Normal 40.0-80.0 [facility] Comment on above: Performed By: #### H RENETTA CMP3 #### [address] [address] Hematocrit (Bld) [Volume fraction] 42.0 % Normal 35.0-47.0 [facility] Comment on above: Performed By: #### H RENETTA CMP3 #### [address] [address] [place] [address] Hemoglobin (Bld) [Mass/Vol] 14.4 g/dL Normal 11.7-16.0 [facility] Comment on above: Performed By: #### H EMDF, CMP3 #### [address] [address] Lymphocytes (Bld) [#/Vol] 1.9 10*3/uL Normal 1.0-4.3 [facility] Comment on above: Performed By: #### H EMDF CMP3 #### [address] [address] Lymphocytes/100 WBC (Bld) 31.1 % Normal 20.0-40.0 [facility] Comment on above: Performed By: #### H EMDF, CMP3 #### [address] [place] [address] MCH (RBC) [Entitic mass] 30.4 pg Normal 26.0-34.0 [facility] Comment on above: Performed By: #### H EMDShelley CMP3 #### [address] [address] [place] [address] MCHC (RBC) [Mass/Vol] 34.2 % Normal 32.0-36.0 [facility] Comment on above: Performed By: #### H EMDShelley CMP3 #### [address] [address] MCV (RBC) [Entitic vol] 88.8 fL Normal 79.0-98.0 [facility] Comment on above: Performed By: #### H EMDShelley CMP3 #### [address] [address] Monocytes (Bld) [#/Vol] 0.5 10*3/uL Normal 0.0-0.8 [facility] Comment on above: Performed By: #### H RENETTA CMP3 #### [address] [address] Monocytes/100 WBC (Bld) 7.9 % Normal 2.0-10.0 [facility] Comment on above: Performed By: #### H RENETTA CMP3 #### [address] [address] Platelet mean volume (Bld) [Entitic vol] 8.0 fL Normal 7.4-10.4 [facility] Comment on above: Performed By: #### H EMDShelley CMP3 #### [address] [address] Platelets (Bld) [#/Vol] 192 10*3/uL Normal 140-440 [facility] Comment on above: Performed By: #### H EMDShelley CMP3 #### [address] [address] RBC (Bld) [#/Vol] 4.73 10*6/uL Normal 3.80-5.20 [facility] Comment on above: Performed By: #### H EMDShelley CMP3 #### [address] [place] [address] WBC (Bld) [#/Vol] 6.2 10*3/uL Normal 3.6-10.7 [facility] Comment on above: Performed By: #### H LUIS M JACKSON3 #### [facility] [address] [place] [address] T SPOT TB TESTon 01-27-2019 T-SPOT RESULT Negative Normal NEGATIVE [facility] Comment on above: Performed By: #### L [id number] #### Test performed at: [facility] [address] [place] [address] T-SPOT TBon 01-27-2019 T-SPOT LIMITS SEE COMMENT Normal [facility] Comment on above: Order Comment: TSPOT SENT TO ST LAB 01/24/19 0836 MEHDI WELLER Result Comment: NOHEMI DIAZ - 1.) A FALSE NEGATIVE result can be caused by incorrect blood sample collection or improper handling of the specimen, affecting lymphocyte function. 2.) The performance of T-SPOT.TB has not been adequately evaluated with specimens from individuals younger than 17 years, in pregnatnt women, and in patients with hemophilia. 3.) A FALSE POSITIVE result was obtained for T-SPOT.TB when tested in subjects with M.xenopi, M.kansasii, and M.gordonae. While ESAT-6 and CFP-10 antigens are absent from BCG strains of M.bovis and from most enviromental mycobacteria, it is possible that a POSITIVE T-SPOT.TB result may be due to infection with M.kansasii, M.szulgai, M.gordonae, or M.marinum. Alternative tests would be required if these infections are suspected. 4.) A NEGATIVE test result does not exclude the possiblility of exposure to, or infection with M.tuberculosis. Patients with recent exposure to TB infected individuals exhibiting a negative T-SPOT.TB should be considered for retesting within 6 weeks or if other relevant clinical symptoms indicate possible infections. 5.) A POSITIVE test result does not rule in active TB disease: other tests should be performed to confirm the diagnosis of active TB disease such as sputum smear and culture, PCR and chest radiography. 6.) T-SPOT.TB test has not been evaluated in subjects who have received >1 month of anti-TB therapy. 7.) Refrigerated and frozen samples are not recommended for use with T-SPOT.TB test. TESTING PERFORMED AT [facility], [facility] [address] [place] [address]. Performed By: #### L [id number] #### [address] [place] [address] T-SPOT NOTE SEE COMMENT Normal [facility] Comment on above: Order Comment: TSPOT SENT TO [facility] 01/24/19 08 MEHDI WELLER Result Comment: NOTE : Diagnosing or excluding Tuberculosis disease, and assessing the probability of LTBI, requires a combination of epidemiological, historical, medical and diagnostic findings that should be taken into account when interpreting T-SPOT.TB. Refer to the most rescent CDC Guidance (HTTP://WWW.CDC.GOV/NCHSTP/TB) for detailed recommendations about diagnosing TB infections (including disease) and selecting persons for testing. Performed By: #### L [id number] #### [address] [place] [address] T-SPOT RESULT Negative Normal NEGATIVE [facility] Comment on above: Order Comment: TSPOT SENT TO [facility] 01/24/19 0836 MEHDI WELLER Performed By: #### L 700.01400 #### [address] [place] [address] MUMPS IGG ABon 01-25-2019 MUMPS IGG AB 171.0 AU/mL Normal Immune >10.9 [facility] Comment on above: Order Comment: Olvin rodríguez: PA Result Comment: Nega tive <9.0 Equivocal 9.0 - 10.9 Positive >10.9 A positive result generally indicates past exposure to Mumps virus or previous vaccination. Performed By: #### L 750.90407, L750.83007, L750.71045 #### [address] [address] RUBEOLA IGG ABon 01-25-2019 RUBEOLA IGG AB 45.4 AU/mL Normal Immune >29.9 [facility] Comment on above: Order Comment: Olvin s: NC Result Comment: Nega tive <25.0 Equivocal 25.0 - 29.9 Positive >29.9 Presence of antibodies to Rubeola is presumptive evidence of immunity except when acute infection is suspected. Performed At: [facility] [address] [place], [place] [id number] Noble Titus PhD [id number] Performed By: #### L 750.64704, L750.37656, L750.82996 #### [address] [address] V ZOSTER IGG ABon 01-25-2019 V ZOSTER IGG AB 1980 index Normal Immune >165 [facility] Comment on above: Order Comment: Olvin s: NC Result Comment: Nega tive <135 Equivocal 135 - 165 Positive >165 A positive result generally indicates exposure to the pathogen or administration of specific immunoglobulins, but it is not indication of active infection or stage of disease. Performed By: #### L 750.65338, L750.18445, L750.68593 #### [facility] [address] [place] [address] HEP B AB QUANTon 01-24-2019 HEP B AB QUANT LESS THAN 3.10 Normal 0.00-9.99 [facility] Comment on above: Order Comment: Olvin s: SARA SPECIMEN SOURCE: BLOOD Result Comment: STAT US OF IMMUNITY Protective Immunity: greater than or equal to 10 mIU/mL (Traceable to WHO International Reference Preparation) No Protective Immuniity: less than 10 mIU/mL Note: The magnitude of the measured result above the cutoff is not indicative of the total amount of antibody present. Performed By: #### L 540.82816 #### [facility] [address] [place] [address] RUBELLA IGG ABon 01-24-2019 RUBELLA IGG AB IMMUNE Normal [facility] Comment on above: Order Comment: Olvin s: PA Result Comment: <5 I U/ML- Non-Immune for IgG antibodies to Rubella Virus. >= 5-9.9 IU/ML- Equivocal for IgG antibodies to Rubella Virus. Obtain a new specimen and test using Centaur Rubella IgG assay. >= 10 IU/ML- Immune for IgG antibodies to Rubella Virus. <5 IU/ML- Non-Immune for IgG antibodies to Rubella Virus. >= 5-9.9 IU/ML- Equivocal for IgG antibodies to Rubella Virus. Obtain a new specimen and test using Centaur Rubella IgG assay. >= 10 IU/ML- Immune for IgG antibodies to Rubella Virus. Performed By: #### L [id number] #### [facility] [address] [place] [address]# [phone] T SPOT TB TESTon 01-24-2019 T-SPOT LIMITS Normal [facility] Comment on above: Result Comment: NOHEMI DIAZ - 1.) A FALSE NEGATIVE result can be caused by incorrect blood sample collection or improper handling of the specimen, affecting lymphocyte function. 2.) The performance of T-SPOT.TB has not been adequately evaluated with specimens from individuals younger than 17 years, in women, and in patients with hemophilia. 3.) A FALSE POSITIVE result was obtained for T-SPOT.TB when tested in subjects with M.xenopi, M.kansasii, and M.gordonae. While ESAT-6 and CFP-10 antigens are absent from BCG strains of M.bovis and from most environmental mycobacteria, it is possible that a POSITIVE T-SPOT.TB result may be due to infection with M.kansasii, M.szulgai, M.gordonae, or M.marinum. Alternative tests would be required if these infections are suspected. 4.) A NEGATIVE test result does not exclude the possibility of exposure to, or infection with M.tuberculosis. Patients with recent exposure to TB infected individuals exhibiting a negative T-SPOT.TB should be considered for retesting within 6 weeks or if other relevant clinical symptoms indicate possible infection. 5.) A POSITIVE test result does not rule in active TB disease: other tests should be performed to confirm the diagnosis of active TB disease such as sputum smear and culture, PCR and chest radiography. 6.) T-SPOT.TB test has not been evaluated in subjects who have received >1 month of anti-TB therapy. 7.) Refrigerated and frozen samples are not recommended for use with T-SPOT.TB test. Performed By: #### L [id number] #### Test performed at: [place] [address] T-SPOT NOTE Normal [facility] Comment on above: Result Comment: NOTE : Diagnosing or excluding Tuberculosis disease, and assessing the probability of LTBI, requires a combination of epidemiological, historical, medical and diagnostic findings that should be taken into account when interpreting T-SPOT.TB. Refer to the most recent CDC Guidance (HTTP://WWW.CDC.GOV/NCHSTP/TB) for detailed recommendations about diagnosing TB infection (including disease) and selecting persons for testing. Performed By: #### L 750.85469 #### Test performed at: [place] [address] Vital Signs Date Time Vital Sign Value Performing Clinician Facility 02-11-2025 14:29-0400 Body temperature 98.06 [degF] DR JEFF MEANS MD [facility] 02-11-2025 14:29-0400 Diastolic Blood Pressure Non-Invasive 74 mm[Hg] DR JEFF MEANS MD [facility] 02-11-2025 14:29-0400 Heart rate 66 /min DR JEFF MEANS MD [facility] 02-11-2025 14:29-0400 Respiratory rate 18 /min DR JEFF MEANS MD [facility] 02-11-2025 14:29-0400 Systolic Blood Pressure Non-Invasive 124 mm[Hg] DR JEFF MEANS MD [facility] 02-11-2025 10:36-0400 Diastolic Blood Pressure Non-Invasive 72 mm[Hg] DR JEFF MEANS MD [address] [place] [address] 02-11-2025 10:36-0400 Systolic Blood Pressure Non-Invasive 132 mm[Hg] DR JEFF MEANS MD [address] [place] [address] 02-11-2025 07:51-0400 Body temperature 97.7 [degF] DR JEFF MEANS MD [address] 02-11-2025 07:51-0400 Diastolic Blood Pressure Non-Invasive 67 mm[Hg] DR JEFF MEANS MD [address] [place] [address] 02-11-2025 07:51-0400 Heart rate 65 /min DR JEFF MEANS MD [address] [place] [address] 02-11-2025 07:51-0400 Respiratory rate 18 /min DR JEFF MEANS MD [address] [place] [address] 02-11-2025 07:51-0400 Systolic Blood Pressure Non-Invasive 99 mm[Hg] DR JEFF MEANS MD [address] [place] [address] 02-11-2025 04:06-0400 Respiratory rate 18 /min DR JEFF MEANS MD [address] [place] [address] 02-10-2025 21:44-0400 Body temperature 98.06 [degF] DR JEFF MEANS MD [address] [place] [address] 02-10-2025 21:44-0400 Heart rate 65 /min DR JEFF MEANS MD [address] [place] [address] 02-09-2025 06:04-[address] Cuff Size DR JEFF MEANS MD [address] [place] [address] 02-09-2025 06:04-[address] JEFF MEANS MD [address] [place] [address] 02-09-2025 06:04-[address] JEFF MEANS MD [address] [place] [address] 02-09-2025 06:04-0400 Reason For Taking VItal Signs DR JEFF MEANS MD [address] [place] [address] 02-08-2025 22:30-[address]uff [address] JEFF MEANS MD [address] [place] [address] 02-08-2025 22:30-[address] JEFF MEANS MD [address] [place] [address] 02-08-2025 22:30-[address] JEFF MEANS MD [address] [place] [address] 02-07-2025 07:16-0400 Reason For Taking VItal Signs DR JEFF MEANS MD [address] [place] [address] 02-06-2025 15:20-0400 Heart rate 82 /min DR JEFF MEANS MD [address] [place] [address] 02-06-2025 15:20-0400 Reason For Taking VItal Signs DR JEFF MEANS MD [address] [place] [address] 02-06-2025 08:21-0400 Heart rate 77 /min DR JEFF MEANS MD [address] [place] [address] 02-06-2025 04:55-0400 Heart rate 80 /min DR JEFF MEANS MD [address] [place] [address] 02-06-2025 04:31-0400 Body height 172.[address] JEFF MEANS MD [address] [place] [address] 02-06-2025 04:31-0400 Body weight 120.[address] JEFF MEANS MD [address] [place] [address] 02-06-2025 04:31-0400 Body weight 40.54 kg/m2 DR JEFF MEANS MD [address] [place] [address] 02-05-2025 18:45-0400 Body temperature 96.98 [degF] DR JEFF MEANS MD [address] [place] [address] 02-05-2025 18:45-0400 Body weight 120.[address] JEFF MEANS MD [address] [place] [address] 10-23-2024 13:170500 Body height 172.7 cm Shamar Roper MD Work Phone: [facility] 10-23-2024 13:17-0500 Body mass index (BMI) [Ratio] 40.05 kg/m2 Shamar Roper MD Work Phone: [facility] 10-23-2024 13:17-0500 Body weight 119.48 kg Shamar Roper MD Work Phone: [facility] 10-23-2024 13:17-0500 Diastolic blood pressure 89 mm[Hg] Shamar Roper MD Work Phone: [facility] 10-23-2024 13:17-0500 Heart rate 89 /min Shamar Roper MD Work Phone: [facility] 10-23-2024 13:17-0500 Systolic blood pressure 128 mm[Hg] Shamar Roper MD Work Phone: [facility] 06-18-2024 07:13-0400 Blood Pressure Location 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 [facility] 06-18-2024 07:13-0400 Blood Pressure Method 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 [facility] 06-18-2024 07:13-0400 Body height 172.7 cm 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 [facility] 06-18-2024 07:13-0400 Body temperature 97.34 [degF] 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 [facility] 06-18-2024 07:13-0400 Body weight 110.3 kg 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 [facility] 06-18-2024 07:13-0400 Body weight 36.98 kg/m2 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 [facility] 06-18-2024 07:13-0400 Diastolic Blood Pressure Non-Invasive 77 mm[Hg] 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 [address] [place] [address] 06-18-2024 07:13-0400 Heart rate 96 /min 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 [address] [place] [address] 06-18-2024 07:13-0400 Respiratory rate 18 /min 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 [address] [place] [address] 06-18-2024 07:13-0400 Systolic Blood Pressure Non-Invasive 122 mm[Hg] 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 [address] [place] [address] 04-26-2024 15:04-0400 Blood Pressure Cuff Size CHRIS OLMSTEAD MD [address] [place] [address] 04-26-2024 15:04-0400 Blood Pressure Location CHRIS OLMSTEAD MD [address] [place] [address] 04-26-2024 15:04-0400 Blood Pressure Method CHRIS OLMSTEAD MD [address] [place] [address] 04-26-2024 15:04-0400 Body temperature 98.24 [degF] CHRIS OLMSTEAD MD [address] [place] [address] 04-26-2024 15:04-0400 Diastolic Blood Pressure Non-Invasive 68 mm[Hg] CHRIS OLMSTEAD MD [address] [place] [address] 04-26-2024 15:04-0400 Heart rate 79 /min CHRIS OLMSTEAD MD [address] [place] [address] 04-26-2024 15:04-0400 Respiratory rate 22 /min CHRIS OLMSTEAD MD [address] [place] [address] 04-26-2024 15:04-0400 Systolic Blood Pressure Non-Invasive 98 mm[Hg] CHRIS OLMSTEAD MD [address] [place] [address] 04-26-2024 10:22-0400 Blood Pressure Cuff Size CHRIS OLMSTEAD MD [address] [place] [address] 04-26-2024 10:22-0400 Blood Pressure Location CHRIS OLMSTEAD MD [address] [place] [address] 04-26-2024 10:22-0400 Blood Pressure Method CHRIS OLMSTEAD MD [address] [place] [address] 04-26-2024 10:22-0400 Body temperature 97.7 [degF] CHRIS OLMSTEAD MD [address] [place] [address] 04-26-2024 10:22-0400 Diastolic Blood Pressure Non-Invasive 69 mm[Hg] CHRIS OLMSTEAD MD [address] [place] [address] 04-26-2024 10:22-0400 Heart rate 74 /min CHRIS OLMSTEAD MD [address] [place] [address] 04-26-2024 10:22-0400 Reason For Taking VItal Signs CHRIS OLMSTEAD MD [address] [place] [address] 04-26-2024 10:22-0400 Respiratory rate 18 /min CHRIS OLMSTEAD MD [address] [place] [address] 04-26-2024 10:22-0400 Systolic Blood Pressure Non-Invasive 101 mm[Hg] CHRIS OLMSTEAD MD [address] [place] [address] 04-26-2024 06:31-0400 Blood Pressure Cuff Size CHRIS OLMSTEAD MD [address] [place] [address] 04-26-2024 06:31-0400 Blood Pressure Location CHRIS OLMSTEAD MD [address] [place] [address] 04-26-2024 06:31-0400 Blood Pressure Method CHRIS OLMSTEAD MD [address] [place] [address] 04-26-2024 06:31-0400 Body temperature 98.24 [degF] CHRIS OLMSTEAD MD [address] [place] [address] 04-26-2024 06:31-0400 Diastolic Blood Pressure Non-Invasive 66 mm[Hg] CHRIS OLMSTEAD MD [address] [place] [address] 04-26-2024 06:31-0400 Heart rate 79 /min CHRIS OLMSTEAD MD [address] [place] [address] 04-26-2024 06:31-0400 Reason For Taking VItal Signs CHRIS OLMSTEAD MD [address] [place] [address] 04-26-2024 06:31-0400 Respiratory rate 18 /min CHRIS OLMSTEAD MD [address] [place] [address] 04-26-2024 06:31-0400 Systolic Blood Pressure Non-Invasive 121 mm[Hg] CHRIS OLMSTEAD MD [address] [place] [address] 04-25-2024 23:31-0400 Reason For Taking VItal Signs CHRIS OLSMTEAD MD [address] [place] [address] 04-24-2024 16:15-0400 Body temperature 96.8 [degF] CHRIS OLMSTEAD MD [address] [place] [address] 04-24-2024 16:15-0400 Heart rate 84 /min CHRIS OLMSTEAD MD [address] [place] [address] 04-24-2024 16:15-0400 Mean blood pressure 110 mm[Hg] CHRIS OLMSTEAD MD [address] [place] [address] 04-24-2024 16:00-0400 Heart rate 82 /min CHRIS OLMSTEAD MD [address] [place] [address] 04-24-2024 16:00-0400 Mean blood pressure 104 mm[Hg] CHRIS OLMSTEAD MD [address] [place] [address] 04-24-2024 15:45-0400 Heart rate 88 /min CHRIS OLMSTEAD MD [address] [place] [address] 04-24-2024 15:45-0400 Mean blood pressure 110 mm[Hg] CHRIS OLMSTEAD MD [address] [place] [address] 04-24-2024 15:05-0400 Body temperature 98.06 [degF] CHRIS OLMSTEAD MD [address] [place] [address] 04-24-2024 15:05-0400 Respiratory Rate - Anes 0 br/min CHRIS OLMSTEAD MD [address] [place] [address] 04-24-2024 15:00-0400 Respiratory Rate - Anes 6 br/min CHRIS OLMSTEAD MD [address] [place] [address] 04-24-2024 14:55-0400 Body temperature 97.65 [degF] CHRIS OLMSTEAD MD [address] [place] [address] 04-24-2024 14:55-0400 Respiratory Rate - Anes 11 br/min CHRIS OLMSTEAD MD [address] [place] [address] 04-24-2024 14:50-0400 Body temperature 97.52 [degF] CHRIS OLMSTEAD MD [address] [place] [address] 04-24-2024 14:45-0400 Body temperature 97.43 [degF] CHRIS OLMSTEAD MD [address] [place] [address] 04-24-2024 00:56-0400 Body height 172.7 cm CHRIS OLMSTEAD MD [address] [place] [address] 04-24-2024 00:56-0400 Body weight 112 kg CHRIS OLMSTEAD MD [address] [place] [address] 04-24-2024 00:56-0400 Body weight 37.55 kg/m2 CHRIS OLMSTEAD MD [address] [place] [address] 04-23-2024 08:02-0400 Body temperature 96.8 [degF] CHRIS OLMSTEAD MD [address] [place] [address] 04-23-2024 08:02-0400 Body weight 112 kg CHRIS OLMSTEAD MD [address] [place] [address] 04-21-2024 08:39-0400 Diastolic Blood Pressure Non-Invasive 86 mm[Hg] [facility] 04-21-2024 08:39-0400 Heart rate 80 /min [facility] 04-21-2024 08:39-0400 Respiratory rate 17 /min [facility] CHOUJAA DO [facility] 04-21-2024 08:39-0400 Systolic Blood Pressure Non-Invasive 130 mm[Hg] ENOC CHOUJAA DO [facility] 04-21-2024 06:23-0400 Body temperature 96.98 [degF] DEBBIEAL CHOUJAA DO [facility] 04-21-2024 06:23-0400 Body weight 114.7 kg DEBBIENC CHOUCLAUDIAA DO [facility] 04-21-2024 06:23-0400 Diastolic Blood Pressure Non-Invasive 85 mm[Hg] [facility] ANGELAA DO [facility] 04-21-2024 06:23-0400 Heart rate 86 /min [facility] ANGELAA DO [facility] 04-21-2024 06:23-0400 Respiratory rate 18 /min [facility] ANGELAA DO [facility] 04-21-2024 06:23-0400 Systolic Blood Pressure Non-Invasive 128 mm[Hg] [facility] ANGELAA DO [facility] 03-22-2024 01:32-0400 Body temperature 98.24 [degF] SARA CORLEY MD [facility] 03-22-2024 01:32-0400 Body weight 116.2 kg SARA CORLEY MD [facility] 03-22-2024 01:32-0400 Diastolic Blood Pressure Non-Invasive 110 mm[Hg] SARA CORLEY MD [facility] 03-22-2024 01:32-0400 Heart rate 90 /min SARA CORLEY MD [facility] 03-22-2024 01:32-0400 Respiratory rate 20 /min SARA CORLEY MD [facility] 03-22-2024 01:32-0400 Systolic Blood Pressure Non-Invasive 159 mm[Hg] SARA CORLEY MD [facility] 01-27-2024 13:37-0400 Diastolic blood pressure 86 mm[Hg] DAVID POST DO [facility] 01-27-2024 13:37-0400 Heart rate 68 /min DAVID POST DO [facility] 01-27-2024 13:37-0400 Respiratory rate 18 /min DAVID POST DO [facility] 01-27-2024 13:37-0400 Systolic blood pressure 154 mm[Hg] DAVID POST DO [facility] 01-27-2024 12:50-0400 Diastolic Blood Pressure Non-Invasive 81 mm[Hg] DAVID POST DO [facility] 01-27-2024 12:50-0400 Heart rate 71 /min DAVID POST DO [address] [place] [address] 01-27-2024 12:50-0400 Reason For Taking VItal Signs DAVID POST DO [employer] [facility] 01-27-2024 12:50-0400 Respiratory rate 18 /min DAVID POST DO [employer] [facility] 01-27-2024 12:50-0400 Systolic Blood Pressure Non-Invasive 139 mm[Hg] DAVID POST DO [employer] [facility] 01-27-2024 10:27-0400 Body temperature 98.06 [degF] DAVID POST DO [facility] 01-27-2024 10:27-0400 Body weight 122 kg DAVID POST DO [facility] 01-27-2024 10:27-0400 Diastolic Blood Pressure Non-Invasive 94 mm[Hg] DAVID POST DO [employer] [facility] 01-27-2024 10:27-0400 Heart rate 81 /min DAVID POST DO [facility] 01-27-2024 10:27-0400 Respiratory rate 18 /min DAVID POST DO [facility] 01-27-2024 10:27-0400 Systolic Blood Pressure Non-Invasive 155 mm[Hg] DAVID POST DO [facility] 01-25-2024 07:30-0500 Body temperature 98.3 [degF] DO KAYCEE BITONTE Work Phone: [facility] 01-25-2024 07:30-0500 Diastolic blood pressure 70 mm[Hg] DO KAYCEE BITONTE Work Phone: 6(973)341-320669 [place] [address] 01-25-2024 07:30-0500 Heart rate 73 /min DO KAYCEE BITONTE Work Phone: 4(038)045-339369 [place] [address] 01-25-2024 07:30-0500 Respiratory rate 16 /min DO KAYCEE BITONTE Work Phone: 8(540)085-260569 [place] [address] 01-25-2024 07:30-0500 SaO2% (BldA) [Mass fraction] 97 % DO KAYCEE BITONTE Work Phone: 8(347)413-988369 [place] [address] 01-25-2024 07:30-0500 Systolic blood pressure 136 mm[Hg] DO KAYCEE BITONTE Work Phone: 3(927)161-920369 [place] [address] 01-25-2024 05:54-0500 Body height 172.72 cm DO KAYCEE BITONTE Work Phone: 2(155)967-530069 [place] [address] 01-25-2024 05:54-0500 Body mass index (BMI) [Ratio] 40.5 kg/m2 DO KAYCEE BITONTE Work Phone: 1(887)777-848369 [place] [address] 01-25-2024 05:54-0500 Body weight 121 kg DO KAYCEE BITONTE Work Phone: 6(469)606-170469 [place] [address] 01-11-2024 13:56-0500 Body height 172.72 cm DO KAYCEE BITONTE Work Phone: 2(148)066-747369 [place] [address] 01-11-2024 13:56-0500 Body mass index (BMI) [Ratio] 41.3 kg/m2 DO KAYCEE ARAUJO Work Phone: [facility] 01-11-2024 13:56-0500 Body weight 123.37 kg KAYCEEJUAN DAVID ARAUJO Work Phone: [facility] 01-19-2023 09:05-0500 Heart rate 82 /min DR JONI MACK MD [address] [place] [address] 01-19-2023 09:05-0500 Respiratory rate 18 /min DR JONI MACK MD [address] 01-19-2023 06:47-0500 Body temperature 98.24 [degF] DR JONI MACK MD [address] 01-19-2023 06:47-0500 Diastolic Blood Pressure Non-Invasive [address] JONI MACK MD [address] 01-19-2023 06:47-0500 Heart rate 70 /min DR JONI MACK MD [address] 01-19-2023 06:47-0500 Reason For Taking VItal Signs DR JONI MACK MD [address] 01-19-2023 06:47-0500 Respiratory rate 18 /min DR JONI MACK MD [address] 01-19-2023 06:47-0500 Systolic Blood Pressure Non-Invasive [address] JONI MACK MD [address] [place] [address] 01-18-2023 22:28-0500 Body temperature 97.88 [degF] DR JONI MACK MD [address] [place] [address] 01-18-2023 22:28-0500 Heart rate 74 /min DR JONI MACK MD [address] [place] [address] 01-18-2023 22:28-0500 Respiratory rate 18 /min DR JONI MACK MD [address] [place] [address] 01-18-2023 20:22-0500 Body temperature 97.34 [degF] DR JONI MACK MD [address] [place] [address] 01-18-2023 20:22-0500 Diastolic Blood Pressure Non-Invasive [address] JONI MACK MD [address] [place] [address] 01-18-2023 20:22-0500 Heart rate 75 /min DR JONI MACK MD [address] [place] [address] 01-18-2023 20:22-0500 Mean blood pressure 98 mm[Hg] DR JONI MACK MD [address] [place] [address] 01-18-2023 20:22-0500 Reason For Taking VItal Signs DR JONI MACK MD [address] [place] [address] 01-18-2023 20:22-0500 Systolic Blood Pressure Non-Invasive [address] JONI MACK MD [address] [place] [address] 01-18-2023 14:54-0500 Diastolic Blood Pressure Non-Invasive [address] JONI MACK MD [address] [place] [address] 01-18-2023 14:54-0500 Heart rate 110 /min DR JONI MACK MD [address] [place] [address] 01-18-2023 14:54-0500 Systolic Blood Pressure Non-Invasive [address] JONI MACK MD [address] [place] [address] 01-18-2023 11:16-0500 Heart rate 87 /min DR JONI MACK MD [address] [place] [address] 01-18-2023 07:10-0500 Heart rate 92 /min DR JONI MACK MD [address] [place] [address] 01-18-2023 02:43-0500 Body temperature 98.24 [degF] DR JONI MACK MD [address] [place] [address] 01-18-2023 02:43-0500 Heart rate 92 /min DR JONI MACK MD [address] [place] [address] 01-17-2023 22:11-0500 Body temperature 98.24 [degF] DR JONI MACK MD [address] [place] [address] 01-17-2023 19:00-0500 Reason For Taking VItal Signs DR JONI MACK MD [address] [place] [address] 01-17-2023 14:37-[address] JONI MACK MD [address] [place] [address] 01-17-2023 14:37-[address] JONI MACK MD [address] [place] [address] 01-17-2023 13:00-0500 Body height 172.[address] JONI MACK MD [address] [place] [address] 01-17-2023 13:00-0500 Body weight 130.[address] JONI MACK MD [address] [place] [address] 01-17-2023 13:00-0500 Body weight 43.86 kg/m2 DR JONI MACK MD [address] [place] [address] 01-17-2023 12:45-0500 Blood Pressure Cuff Size DR JONI MACK MD [address] [place] [address] 01-17-2023 12:45-[address] JONI MACK MD [address] [place] [address] 01-17-2023 10:21-0500 Mean blood pressure 97 mm[Hg] DR JONI MACK MD [address] [place] [address] 01-17-2023 00:45-0500 Mean blood pressure 112 mm[Hg] DR JONI MACK MD [address] [place] [address] 01-16-2023 23:55-0500 Heart rate 98 /min DR JONI MACK MD [address] [place] [address] 01-16-2023 16:08-0500 Body temperature 96.98 [degF] DR JONI MACK MD [address] [place] [address] 01-16-2023 16:08-0500 Body weight 130.[address] JONI MACK MD [address] [place] [address] 02-24-2022 05:45-0400 Body temperature 98.42 [degF] DR NICKIE CADET MD [facility] 02-24-2022 05:45-0400 Diastolic blood pressure 119 mm[Hg] DR NICKIE CADET MD [facility] 02-24-2022 05:45-0400 Heart rate 83 /min DR NICKIE CADET MD [facility] 02-24-2022 05:45-0400 Respiratory rate 20 /min DR NICKIE CADET MD [facility] 02-24-2022 05:45-0400 Systolic blood pressure 165 mm[Hg] DR NICKIE CADET MD [facility] 04-21-2020 10:08-0400 BP Diastolic 79 mm[Hg] [facility] [place] 04-21-2020 10:08-0400 BP Systolic 130 mm[Hg] [facility] [place] 04-21-2020 10:08-0400 Pulse (Heart Rate) 78 /min Marylou Titus [facility], [place] 04-21-2020 10:08-0400 Pulse Oximetry 97 % [facility] [place] 04-21-2020 10:08-0400 Respiratory Rate 16 /min Marylou [employer] [facility], [place] 04-21-2020 08:40-0400 BMI (Body Mass Index) 41.97 kg/m2 Marylou [facility], [place] 04-21-2020 08:40-0400 Body Temperature 97.7 [degF] Marylou Titus [employer] [facility], [place] 04-21-2020 08:40-0400 Body weight 125.19 kg Marylou [facility] [place] 04-21-2020 08:40-0400 Height 172.7 cm Marylou [facility] [place] Encounters Encounter Date Encounter Type Care Provider Facility Start: 09-23-2025 End: 09-23-2025 ambulatory KAYCEE ARAUJO DO Facility:A Start: 09-23-2025 End: 09-23-2025 Patient encounter procedure CHRIS OLMSTEAD MD [employer] Start: 09-21-2025 End: 09-21-2025 ambulatory Kaley Hope Facility:[facility] Start: 09-16-2025 End: 09-16-2025 ambulatory KAYCEE ARAUJO DO Facility:A Start: 09-16-2025 End: 09-16-2025 Patient encounter procedure 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 [employer] Start: 08-26-2025 End: 08-26-2025 ambulatory KAYCEE ARAUJO DO Facility:A Start: 08-26-2025 End: 08-26-2025 Patient encounter procedure 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 [employer] Start: 08-21-2025 End: 08-22-2025 Emergency department patient visit KAYCEE ARAUJO DO Facility:A Start: 07-29-2025 End: 07-29-2025 Telephone encounter Chelsey Roberson MD Work Phone: [facility] Comment on above: New Patient Start: 04-27-2025 End: 04-27-2025 ambulatory ELIANE HENSON MD Facility:A Start: 04-24-2025 End: 04-24-2025 ambulatory ELIANE HENSON MD Facility:A Start: 04-24-2025 End: 04-24-2025 Patient encounter procedure KAYCEE ARAUJO DO [employer] Start: 03-23-2025 End: 03-27-2025 ambulatory KAYCEE BASSETTE DO Facility:[facility] Animal Humane Agent Supervisor al Medicine Start: 03-11-2025 End: 03-15-2025 ambulatory KAYCEE ARAUJO DO Facility:[facility] Animal Humane Agent Supervisor al Medicine Start: 02-20-2025 ambulatory Kaley Carter ty:[facility] Start: 02-18-2025 ambulatory KAYCEE Davis ity:A Start: 02-05-2025 Emergency department patient visit KAYCEE ARAUJO DO Facility:A Start: 02-05-2025 End: 02-11-2025 Evaluation and management of inpatient DR JEFF MEANS MD [facility] Start: 02-04-2025 ambulatory KAYCEE Davis ity:[facility] Start: 02-04-2025 End: 02-04-2025 ambulatory BRITTANY LEE Facility:A Start: 02-04-2025 End: 02-04-2025 Patient encounter procedure 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 [facility] Start: 12-30-2024 End: 12-30-2024 ambulatory Kaley Hope Facility:[facility] Start: 12-30-2024 End: 12-30-2024 ambulatory Naeem Cole Facility:[facility] Start: 12-21-2024 End: 12-22-2024 Emergency department patient visit KEENAAGUSTÍN RONNY Facility:[facility] Start: 10-28-2024 End: 10-28-2024 Telephone encounter Shamar Roper MD Work Phone: [facility] Scheduling Comment on above: Other (Scheduling ) Start: 10-23-2024 End: 10-23-2024 Office outpatient new 60 minutes Shamar Roper MD Work Phone: [facility] Comment on above: Right peroneal monon europathy (Primary Dx); Numbness and tingling in both hands; Weakness of both legs; Numbness in feet; Cognitive complaints; Idiopathic neuropathy; Fatigue, unspecified type Right peroneal monon europathy (Primary Dx); Numbness and tingling in both hands; Weakness of both legs; Numbness in feet; Cognitive complaints; Idiopathic neuropathy; Fatigue, unspecified type; Vitamin B12 deficiency Start: 10-23-2024 End: 10-23-2024 ambulatory [facility] Start: 08-04-2024 End: 08-04-2024 Patient encounter procedure 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 [facility] Start: 07-17-2024 End: 07-17-2024 ambulatory KAYCEE BITONTE DO Facility:B Start: 07-17-2024 End: 07-17-2024 Patient encounter procedure KAYCEE BITONTE DO [facility] Start: 07-14-2024 ambulatory KAYCEE BITONTE DO Facil ity:B Start: 07-14-2024 End: 07-14-2024 ambulatory KAYCEE BITONTE DO Facility:A Start: 07-03-2024 End: 07-03-2024 ambulatory KAYCEE BITONTE DO Facility:A Start: 07-03-2024 ambulatory KAYCEE BITONTE DO Facil ity:A Start: 06-30-2024 End: 06-30-2024 ambulatory KAYCEE BITONTE DO Facility:A Start: 06-18-2024 End: 06-18-2024 ambulatory KAYCEE BITONTE DO Facility:A Start: 06-18-2024 End: 06-18-2024 Patient encounter procedure 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 [facility] Start: 06-13-2024 ambulatory KAYCEE BITONTE DO Facil ity:A Start: 06-05-2024 End: 06-05-2024 ambulatory KAYCEE BITONTE DO Facility:A Start: 06-05-2024 End: 06-05-2024 Patient encounter procedure 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 [facility] Start: 05-08-2024 End: 05-08-2024 ambulatory KAYCEE BITONTE DO Facility:A Start: 04-23-2024 End: 04-26-2024 Evaluation and management of inpatient CHRIS K ISHAN MD [facility] Start: 04-23-2024 End: 04-23-2024 ambulatory KAYCEE BITONTE DO Facility:A Start: 04-21-2024 End: 04-21-2024 Emergency department patient visit ENOC CARRASCO DO [facility] Start: 03-31-2024 End: 03-31-2024 ambulatory KAYCEE BITONTE DO Facility:A Start: 03-28-2024 End: 04-01-2024 ambulatory KAYCEE BITONTE DO Facility:[facility] Animal Humane Agent Supervisor al Medicine Start: 03-22-2024 End: 03-22-2024 Emergency department patient visit SARA CORLEY MD [facility] Start: 03-07-2024 End: 03-07-2024 ambulatory KAYCEE BITONTE DO Facility:A Start: 02-15-2024 End: 02-15-2024 Patient encounter procedure DO KAYCEE BITONTE Work Phone: [facility] Work Phone: Start: 02-14-2024 End: 02-14-2024 ambulatory DO KAYCEE BITONTE Work Phone: [facility] Work Phone: Start: 02-14-2024 End: 02-14-2024 Patient encounter procedure DO KAYCEE BITONTE Work Phone: [facility]-Nuclear Medicine, [facility] Work Phone: Start: 02-08-2024 End: 02-08-2024 ambulatory DO KAYCEE BITONTE Work Phone: [facility] Work Phone: Start: 02-08-2024 End: 02-08-2024 Patient encounter procedure DO KAYCEE BITONTE Work Phone: [facility]-Ultrasound, [facility] Work Phone: Start: 01-27-2024 End: 01-27-2024 Emergency department patient visit DAVID POST DO [facility] Start: 01-25-2024 Non-patient / Non-visit DO JARVIS ARAUJO Work Phone: [facility] Start: 01-25-2024 End: 01-25-2024 Admission to same day surgery center DO KAYCEE ARAUJO Work Phone: [facility]-Endoscopy Work Phone: Start: 01-25-2024 End: 01-25-2024 ambulatory DO KAYCEE ARAUJO Work Phone: [facility] Work Phone: Start: 01-11-2024 End: 01-11-2024 ambulatory DO KAYCEE ARAUJO Work Phone: [facility] [facility] Work Phone: Start: 01-11-2024 End: 01-11-2024 Patient encounter procedure DO KAYCEE ARAUJO Work Phone: [facility] Work Phone: Start: 08-23-2023 End: 08-23-2023 Emergency department patient visit VILMA ZEPEDA Facility:A Start: 01-16-2023 End: 01-19-[address] JONI MACK MD [facility] Start: 06-13-2022 End: 06-13-2022 Subsequent hospital visit by physician Fahad Childress MD Work Phone: [facility] Comment on above: Suspected COVID-19 v irus infection Start: 02-24-2022 End: 02-24-2022 Emergency department patient visit DR NICKIE CADET MD [facility] Start: 02-10-2022 End: 02-10-2022 Patient encounter procedure ELIANE HENSON MD [facility] Start: 04-21-2020 End: 04-21-2020 Emergency department patient visit Marylou Serrano [place] Work Phone: [facility] Emergency Dept Comment on above: Elevated blood press ure reading with diagnosis of hypertension (Primary Dx); General weakness Start: 01-23-2019 Patient encounter procedure Family Physician Unavailable Facility:[facility] Procedures Date Procedure Procedure Detail Performing Clinician Start: 10-23-2024 Cyanocobalamin vitamin b-12 Shamar rodríguez MD Work Phone: Start: 10-23-2024 Thyrotropin [Units/volume] in Serum or Plasma Shamar Roper MD Work Phone: Start: 04-24-2024 Laminectomy approach to lumbar spine (qualifier value) 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 Start: 02-14-2024 Radionuclide gastric emptying study DO A NURA BITONTE Work Phone: Start: 02-08-2024 Ultrasound elastography of liver DO AMEL IA BITONTE Work Phone: Start: 01-25-2024 Colonoscopy DO KAYCEE BITONTE Work Phone: Start: 01-25-2024 Colonoscopy SARA CORLEY MD Start: 01-25-2024 Esophagogastroduodenoscopic electrohydraulic lithotripsy of bezoar in stomach SARA CORLEY MD Start: 04-21-2020 Blood count complete auto&auto difrntl wbc Marylou Serrano [place] Work Phone: Start: 04-21-2020 Comprehensive metabolic panel Marylou Titus Work Phone: Start: 02-25-2016 Fall (finding) ELIANE HENSON MD Start: 11-19-2015 Intestinal structure (body structure) ELIANE HENSON MD Comment on above: diverticulitis Start: 05-19-2012 History of vaginal hysterectomy ELIANE HENSON MD Cardiovascular stres s test using pharmacologic stress agent ELIANE HENSON MD Plan of Treatment Date Care Activity Detail Author Start: 2051 RSV Immunization for Adults (1 - 1-dose 75+ series) RSV Immunization for Adults (1 - 1-dose 75+ series) [facility] Start: 12-21-2027 Diabetes Screening Diabetes Screening [facility] Start: 2026 Zoster Vaccines (1 of 2) Zoster Vaccines (1 of 2) [facility] Start: 10-23-2025 Hemoglobin A1c measurement Diabetes: Hemoglobin A1C [facility] Start: 09-18-2025 End: 09-18-2025 Patient encounter procedure 09/18/2025 2:00 PM EDT Office Visit [facility] [address] [place], [place] [id number] Maria Elena Loyd APRN.CREW LEADER/CONTROL ROOM OPERATOR [address] [facility] [address] [place] [address] [place] [address] back pain and numbness and tingling in legs, 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/ self referred [facility] Comment on above: back pain and numbness and tingling in l egs, 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/ self referred Start: 07-20-2025 Influenza vaccination Influenza Vaccine (#1) [facility] Start: 03-07-2025 Pneumococcal Vaccine: Pediatrics (0 to 5 Years) and At-Risk Patients (6 to 64 Years) (2 of 2 - PCV) Pneumococcal Vaccine: Pediatrics (0 to 5 Years) and At-Risk Patients (6 to 64 Years) (2 of 2 - PCV) [facility] Start: 01-23-2025 End: 01-23-2025 Patient encounter procedure 01/23/2025 2:20 PM EST Office Visit [address] [place] [address] Shamar Roper MD [address] [place] [address] [facility] Start: 10-23-2024 End: 10-23-2025 Cobalamin (Vitamin B12) [Mass/volume] in Serum or Plasma Vitamin B12 Lab Routine Weakness of both legs Cognitive complaints Idiopathic neuropathy Fatigue, unspecified type Expected: 10/23/2024 (Approximate), Expires: 10/23/2025 [facility] Comment on above: Expected: 10/23/2024 (Approximate), Expi res: 10/23/2025 Start: 10-23-2024 End: 10-23-2025 Hemoglobin A1c measurement Hemoglobin A1c Lab Routine Weakness of both legs Cognitive complaints Idiopathic neuropathy Fatigue, unspecified type Expected: 10/23/2024 (Approximate), Expires: 10/23/2025 [facility] Comment on above: Expected: 10/23/2024 (Approximate), Expi res: 10/23/2025 Start: 10-23-2024 End: 10-23-2025 Immunofixation Electrophoresis Immunofixation Electrophoresis Lab Routine Weakness of both legs Cognitive complaints Idiopathic neuropathy Fatigue, unspecified type Expected: 10/23/2024 (Approximate), Expires: 10/23/2025 [facility] Comment on above: Expected: 10/23/2024 (Approximate), Expi res: 10/23/2025 Start: 10-23-2024 End: 10-23-2025 Nerve conduction test with EMG [facility] Work Phone: Comment on above: Expected: 10/23/2024 (Approximate), Expi res: 10/23/2025 Start: 10-23-2024 End: 10-23-2025 Protein, Total and Protein Electrophoresis Protein, Total and Protein Electrophoresis Lab Routine Weakness of both legs Cognitive complaints Idiopathic neuropathy Expected: 10/23/2024 (Approximate), Expires: 10/23/2025 [facility] Comment on above: Expected: 10/23/2024 (Approximate), Expi res: 10/23/2025 Start: 10-23-2024 End: 10-23-2025 Thyrotropin [Units/volume] in Serum or Plasma TSH Lab Routine Weakness of both legs Cognitive complaints Idiopathic neuropathy Fatigue, unspecified type Expected: 10/23/2024 (Approximate), Expires: 10/23/2025 [facility] [employer] Comment on above: Expected: 10/23/2024 (Approximate), Expi res: 10/23/2025 Start: 10-23-2024 End: 10-23-2025 Vitamin B1 ([facility]) Vitamin B1 ([facility]) Lab Routine Weakness of both legs Cognitive complaints Idiopathic neuropathy Fatigue, unspecified type Expected: 10/23/2024 (Approximate), Expires: 10/23/2025 [facility] [employer] Comment on above: Expected: 10/23/2024 (Approximate), Expi res: 10/23/2025 Start: 10-23-2024 End: 10-23-2025 Vitamin B6 Vitamin B6 Lab Routine Weakness of both legs Cognitive complaints Idiopathic neuropathy Fatigue, unspecified type Expected: 10/23/2024 (Approximate), Expires: 10/23/2025 [facility] [employer] Comment on above: Expected: 10/23/2024 (Approximate), Expi res: 10/23/2025 Start: 07-20-2024 COVID-19 Vaccine ( season) COVID-19 Vaccine () [facility] Start: 01-25-2024 Colonoscopy w/biopsy single/multiple COLONOSCOPY AND BIOPSY [facility] Start: 01-25-2024 Colsc flx w/rmvl of tumor polyp lesion snare tq COLONOSCOPY W/LESION REMOVAL [facility] Start: 01-25-2024 Egd transoral biopsy single/multiple EGD BIOPSY SINGLE/MULTIPLE [facility] Start: 01-25-2024 Patient discharge [facility] Start: 01-11-2024 Aldolase [Enzymatic activity/volume] in Serum or Plasma [facility] Start: 01-11-2024 Celiac disease screen [facility] Start: 01-11-2024 IgG subclass panel [Mass/volume] - Serum [facility] Start: 01-11-2024 Immunoglobulin measurement [facility] Start: 01-11-2024 Renin [Enzymatic activity/volume] in Plasma [facility] Start: 01-11-2024 Serotonin [Mass/volume] in Serum [facility] Start: 01-11-2024 Serum immunofixation [facility] Start: 01-11-2024 [facility] Start: 07-20-2022 FLU (#1) FLU (#1) [facility] Start: 04-21-2021 Diabetes: Estimated Glomerular Filtration Rate for Kidney Health Diabetes: Estimated Glomerular Filtration Rate for Kidney Health [facility] Start: 2021 Lipid panel Lipid Screening [facility] Start: 2021 Screening for malignant neoplasm of colon [facility] Start: 07-20-2020 Influenza vaccination Flu vaccine (Season Ended) [place], [place] Start: 2016 Diabetes screen Diabetes screen [place], [place] Start: 2016 Lipid panel Lipid screen [place] Start: 2016 Screening for malignant neoplasm of breast [facility] Start: 10-02-2013 DTaP/Tdap/Td Vaccines (1 - Tdap) DTaP/Tdap/Td Vaccines (1 - Tdap) [facility] Start: 10-02-2013 Urine microalbumin profile DTaP,Tdap,Td Vaccine (1 - Tdap) [facility] Start: 2006 Screening for malignant neoplasm of cervix [facility] Start: 1997 Microscopic observation [Identifier] in Cervix by Cyto stain Pap Smear [facility] Start: 1997 Screening for malignant neoplasm of cervix [facility] Start: 1995 DTaP/Tdap/Td vaccine (1 - Tdap) DTaP/Tdap/Td vaccine (1 - Tdap) [place], [place] Start: 1995 Hepatitis B Vaccine (1 of 3 - 19+ 3-dose series) Hepatitis B Vaccine (1 of 3 - 19+ 3-dose series) [facility] Start: 1995 Hepatitis B Vaccines (1 of 3 - 19+ 3-dose series) Hepatitis B Vaccines (1 of 3 - 19+ 3-dose series) [facility] Start: 1994 Anxiety Screening Anxiety Screening [facility] Start: 1994 Depression Screening Depression Screening [facility] Start: 1994 Diabetes: Urine Albumin-Creatinine Ratio for Kidney Health Diabetes: Urine Albumin-Creatinine Ratio for [facility] Start: 1994 Hepatitis C screening Hepatitis C Screening [facility] Start: 1994 HIV screening HIV Screening [facility] Start: 1992 MenB (1 of 2 - MenB 2-Dose Series) MenB (1 of 2 - MenB 2-Dose Series) [facility] Start: 1991 HIV screening HIV screen [place], [place] Start: 1988 Depression Monitoring Depression Monitoring [facility] Start: 1986 Diabetic foot examination Diabetes: Foot Exam [facility] Start: 1986 Glaucoma screening Diabetes: Retinopathy Screening [facility] Start: 1986 Preventive dental service Diabetes: Dental Exam [facility] Start: 1983 Tetanus Diphtheria and Pertussis Vaccines (1 - Tdap) Tetanus Diphtheria and Pertussis Vaccines (1 - Tdap) [facility] Start: 1977 MMR (1 of 1 - Standard series) MMR (1 of 1 - Standard series) [facility] Start: 1977 MMR Vaccines (1 of 1 - Standard series) MMR Vaccines (1 of 1 - Standard series) [facility] Start: 1977 Varicella (1 of 2 - 2-dose childhood series) Varicella (1 of 2 - 2-dose childhood series) [facility] Start: 1976 Creatinine measurement Creatinine monitoring [place], [place] Start: 1976 Hemoglobin A1c measurement Diabetes: Hemoglobin A1C [facility] Start: 1976 HIV screening HIV Screening [facility] Start: 1976 Lipid panel Lipid Panel [facility] Start: 1976 Potassium monitoring Potassium monitoring [place], [place] Start: 1976 Screening for malignant neoplasm of colon [facility] Albumin [Moles/volum e] in Serum or Plasma [facility] Albumin/Globulin ratio [facility] Antibody to lupus La protein measurement [facility] Antibody to SS-A measurement [facility] Beef IgE Ab [Units/volume] in Serum [facility] Centromere protein B Ab [Units/volume] in Serum [facility] Chocolate IgE Ab [Units/volume] in Serum [facility] Chromatin Ab [Units/volume] in Serum or Plasma [facility] Clostridioides diffi cile DNA [Presence] in Unspecified specimen by RHETT with probe detection [facility] Codfish IgE Ab [Units/volume] in Serum [facility] Colonoscopy [facility] [place] IgE Ab [Units/volume] in Serum [facility] Cow milk IgE Ab [Units/volume] in Serum [facility] DNA double strand Ab [Units/volume] in Serum [facility] Elastase.pancreatic [Presence] in Stool [facility] Electrophoresis: [id number] [facility] Electrophoresis: jose carlos ma globulin [facility] Gastrointestinal pathogens panel - Stool by RHETT with probe detection [facility] Giardia lamblia Ag [Presence] in Stool by Immunoassay [facility] Globulin measurement [facility] IgA [Mass/volume] in Serum or Plasma [facility] IgE [Units/volume] i n Serum or Plasma [facility] IgG [Mass/volume] in Serum or Plasma [facility] IgG subclass 1 [Mass/volume] in Serum [facility] IgG subclass 2 [Mass/volume] in Serum [facility] IgG subclass 3 [Mass/volume] in Serum [facility] IgG subclass 4 [Mass/volume] in Serum [facility] IgG, IgA, IgM IgG, IgA, IgM La b Routine Weakness of both legs Cognitive complaints Idiopathic neuropathy Fatigue, unspecified type Ordered: 10/23/2024 [facility] Comment on above: Ordered: 10/23/2024 IgM [Mass/volume] in Serum or Plasma [facility] Immunofixation Electrophoresis Immunofixation Electrophoresis Lab Routine Weakness of both legs Cognitive complaints Idiopathic neuropathy Fatigue, unspecified type Ordered: 10/23/2024 [facility] Comment on above: Ordered: 10/23/2024 Sonia-1 extractable nuc lear Ab [Units/volume] in Serum [facility] Liver stiffness by US.transient elastography [facility] Measurement of immunoglobulin A in serum specimen [facility] Neutrophil cytoplasm ic Ab.classic [Units/volume] in Serum [facility] Ova and parasites identified in Unspecified specimen by Light microscopy [facility] P-ANCA measurement [facility] Patient referral [facility] Work Phone: Peanut IgE Ab [Units/volume] in Serum [facility] Pork IgE Ab [Units/volume] in Serum [facility] Protein [Mass/volume ] in Serum or Plasma Protein, total Lab Routine Weakness of both legs Cognitive complaints Idiopathic neuropathy Ordered: 10/23/2024 [facility] Comment on above: Ordered: 10/23/2024 Protein electrophore sis panel - Serum or Plasma [facility] Radionuclide gastric emptying study [facility] [employer]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 [facility] [place] IgE Ab [Units/volume] in Serum [facility] End: 06-13-2022 SARS CoV-2 RT-PCR 1 [facility] Work Phone: Comment on above: 1 Occurrences starting 06/13/2022 until 06/13/2022 SCL-70 extractable nuclear Ab [Units/volume] in Serum by Immunoassay [facility] Serum Electrophoresis Serum Elec trophoresis Lab Routine Weakness of both legs Cognitive complaints Idiopathic neuropathy Ordered: 10/23/2024 [facility] Comment on above: Ordered: 10/23/2024 Shrimp IgE Ab [Units/volume] in Serum [facility] Nelson extractable nu clear Ab [Presence] in Serum [facility] Soybean IgE Ab [Units/volume] in Serum [facility] Tissue transglutamin ase IgA Ab [Units/volume] in Serum [facility] Tuna IgE Ab [Units/volume] in Serum [facility] Wheat IgE Ab [Units/volume] in Serum [facility] Whole Egg IgE Ab [Units/volume] in Serum [facility] Immunizations Immunization Date Immunization Notes Care Provider [facility] 02-09-2025 influenza, seasonal, injectable, preservative free DR JEFF MEANS MD [facility] 09-20-2024 influenza virus vacc ine, unspecified formulation 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 [facility] Comment on above: Result Comment: 2023: NULL 03-07-2024 pneumococcal polysaccharide vaccine, 23 valent; Translations: [Pneumovax 23] SARA CORLEY MD [facility] 09-12-2023 influenza virus vacc ine, unspecified formulation DAVID POST DO [facility] Comment on above: Result Comment: 2023: NULL 09-16-2022 influenza virus vacc ine, unspecified formulation DR JONI MACK MD [facility] Comment on above: Result Comment: 2021: NULL 09-12-2022 SARS-CoV-2 mRNA (tozinameran) vaccine DR JONI MACK MD [facility] 08-30-2021 influenza virus vacc ine, unspecified formulation DR JONI MACK MD [facility] Comment on above: Result Comment: 2021: NULL 02-25-2021 SARS-CoV-2 mRNA (tozinameran) vaccine ELIANE HENSON MD [facility] Comment on above: Result Comment: 2020: TPV15 01-28-2021 SARS-CoV-2 mRNA (tozinameran) vaccine ELIANE HENSON MD [facility] Comment on above: Result Comment: 2020: TPV15 10-01-2013 tetanus and diphther ia toxoids, adsorbed, preservative free, for adult use (5 Lf of tetanus toxoid and 2 Lf of diphtheria toxoid) DR JONI MACK MD [facility] Payers Date Payer Category Payer Self-pay 2024 Commercial Managed C are - HMO MMO [employer] [id number] 2024 Private Health Insurance [id number] 2024 Unknown [id number] 2024 Unknown [id number] 2023 Unknown [id number] 1976 Unknown [id number] 2.16840.1.045047.3.579.2. 1976 Unknown [id number] 2.16840.1.214035.3.579.2. 1976 Unknown [id number] 2.840.1.847266.3.579.2 1976 Unknown [id number] 2.840.1.455283.3.579.2. 1976 Unknown [id number] 2.840.1.670393.3.579.2 1976 Unknown [id number] 2.840.1.260240.3.579.2. 1976 Unknown [id number] 2.840.1.592760.3.579.2. 1976 Unknown [id number] 2.840.1.265318.3.579.2. 1976 Unknown [id number] 2.840.1.418636.3.579.2. 1976 Unknown [id number] 2.16840.1.477828.3.579.2. 1976 Unknown [id number] 2.16840.1.162573.3.579.2. 1976 Unknown [id number] 2.16.840.1.645702.3.579.2. 1976 Unknown [id number] 2.16.840.1.186001.3.579.2. 1976 Unknown [id number] 2.16.840.1.985894.3.579.2. 1976 Unknown [id number] 2.16.840.1.639530.3.579.2. 1976 Unknown [id number] 2.16.840.1.015088.3.579.2. 1976 Unknown [id number] 2.16.840.1.005385.3.579.2. 1976 Unknown [id number] 2.16.840.1.979574.3.579.2. 1976 Unknown [id number] 2.16.840.1.652587.3.579.2. 1976 Unknown [id number] 2.16.840.1.011672.3.579.2. 1976 Unknown [id number] 2.16.840.1.843547.3.579.2. 1976 Unknown [id number] 2.16.840.1.655951.3.579.2. 1976 Unknown [id number] 2.16.840.1.865479.3.579.2. 1976 Unknown [id number] 2.16.840.1.171157.3.579.2. 1976 Unknown [id number] 2.16.840.1.470502.3.579.2. 1976 Unknown [id number] 2.16.840.1.676783.3.579.2. 1976 Unknown [id number] 2.16.840.1.756348.3.579.2. 1976 Unknown [id number] 2.16.840.1.804780.3.579.2. 627 1976 Unknown [id number] 2.16.840.1.273490.3.579.2. 627 1976 Unknown [id number] 2.16.840.1.317785.3.579.2. 627 1976 Unknown [id number] 2.16.840.1.822308.3.579.2. 627 1976 Unknown [id number] 2.16.840.1.599592.3.579.2. 627 1976 Unknown [id number] 2.16.840.1.066794.3.579.2. 627 Unknown [id number] 2.16.840.1.557694.3.579.2. 462 Unknown [id number] 2.16.840.1.313251.3.579.2. 462 Unknown [id number] 2.16.840.1.473977.3.579.2. 462 Unknown [id number] 2.16.840.1.749106.3.579.2. 462 Social History Date Type Detail Facility Start: 04-21-2020 End: 08-21-2025 Tobacco smoking status NHIS Never smoker [place], [place] Start: 1975 Sex Assigned At Not on file [place], [place] Exposure to SARS-CoV -2 (event) Unable to assess [place], [place] Start: 1975 Sex Assigned At Female A [facility] Start: 01-11-2024 End: 02-15-2024 Tobacco smoking status MDIS Tobacco smoking consumption unknown [facility] Start: 06-03-2022 End: 06-13-2022 Exposure to SARS-CoV-2 (event) Not sure [facility] Start: 10-23-2024 Alcoholic beverage intake Lifetime non-drinker (finding) [facility] Start: 10-23-2024 End: 12-22-2024 History of Social function [facility] Start: 10-23-2024 End: 12-22-2024 Tobacco use panel [facility] Start: 05-02-2016 End: 06-19-2022 Sex Female (finding) [facility] Sexual Orientation Bea chan Start: 10-07-2015 National Score (1-100), lower number is lower risk 88 [facility] Start: 09-24-2019 Sexual Orientation Heterosexual (marleny muir) [facility] Start: 09-24-2019 Gender identity Identifies as female gender (finding) [facility] NEGATED: Highlighted row [facility] Medical Equipment Procedure Code Equipment Code Equipment Origin al Text Equipment Identifier Dates Blood Glucose Te st Strips Start: 12-02-2021 Lancets Start: 05-13-2021 See Instructions , True Metrix test strips, QS for 1 month supply. E11.9 Pt tests BID, # 1 EA, 11 Refill(s), Pharmacy: [facility] #[id number], 172, cm, 11/30/21 8:39:00 EST, Height, 136.4, kg, 11/30/21 8:39:00 EST, Dosing Weight Start: 12-02-2021 See Instructions , qs 1 month supply of [employer] [employer], E11.9 Pt tests BID, # 1 EA, 11 Refill(s), Pharmacy: [facility] #[id number], 172, cm, 05/11/21 12:58:00 EDT, Height, 128, kg, 05/11/21 12:58:00 EDT, Dosing Weight Start: 05-13-2021 Goals Date Patient Goal Desired Activity /State Functional Status Date Assessment Result Facility 02-11-2025 Functional Status Nurse Adeline arndt q2hrs Performed 7am-3pm [facility] 02-11-2025 Functional Status Room check performed [facility] 02-11-2025 Functional Status Setup [facility] 02-11-2025 Functional Status [facility] 02-11-2025 Functional Status [facility] 02-11-2025 Functional Status [facility] 02-10-2025 Functional Status Sequential Com pression Device bilateral knee high applied/on [facility] 02-10-2025 Functional Status Up to Chair Si tting on edge of bed [facility] 02-10-2025 Functional Status Bea [facility] 02-09-2025 Functional Status Spouse works days () [facility] 02-08-2025 Functional Status Bea [facility] 02-08-2025 Functional Status Bea [facility] 02-07-2025 Functional Status 75 Bea [facility] 02-07-2025 Functional Status [facility] [facility] Functional Status NPO Status Maintained A [facility] 02-06-2025 [facility] Status [facility] 02-06-2025 Functional Status Multilevel ho e, 1st floor bedroom, 1st floor bathroom [facility] 02-06-2025 Functional Status [facility] 02-06-2025 Functional Status Sensory Deficits None [facility] 06-18-2024 Functional Status Sensory Deficits None [facility] 04-26-2024 Functional Status Supervised [facility] 04-25-2024 Functional Status [facility] 04-25-2024 Functional Status [facility] 04-25-2024 Functional Status Single level home [facility] 04-25-2024 Functional Status bilateral knee high demario lied/on [facility] 04-25-2024 Functional Status Spouse works days () [facility] 04-25-2024 Functional Status [facility] 04-24-2024 Functional Status [facility] 04-24-2024 Functional Status Patient Identi fied Identification band [facility] 04-24-2024 Functional Status [facility] 04-24-2024 Functional Status Initiated [facility] 04-21-2024 Functional Status Assistive Device None [facility] 04-21-2024 Functional Status Standard Safet y ID band on, Allergy Band on, Call device within reach, Bed in low position, Wheels locked, Upper/Half-Length side-rails up, Safety level maintained [facility] 01-27-2024 Functional Status Independent [facility] 01-27-2024 Functional Status Repositions self [facility] 01-19-2023 Functional Status Independent [facility] 01-19-2023 Functional Status Room check performed [facility] 01-19-2023 Functional Status Repositions se lf, Sleeping quietly with easy respirations [facility] 01-19-2023 Functional Status [facility] 01-18-2023 Functional Status [facility] 01-18-2023 Functional Status heel(s)s elevated [facility] 01-18-2023 Functional Status Hospital bed [facility] 01-17-2023 Functional Status [facility] 01-17-2023 Functional Status Multilevel ho e, 1st floor bedroom, 1st floor bathroom, 1st floor laundry [facility] 02-24-2022 Functional Status [facility] 02-24-2022 Functional Status [facility] Mental Status Date Assessment Result Facility 02-11-2025 Mental Status Orientation Oriented x 4 [facility] 02-10-2025 Mental Status [facility] 02-10-2025 Mental Status [facility] 02-09-2025 Mental Status [facility] 02-08-2025 Mental Status [facility] 04-26-2024 Mental Status Oriented x 4 [facility] 04-26-2024 Mental Status [facility] 04-25-2024 Mental Status [facility] 04-24-2024 Mental Status [facility] 04-21-2024 Mental Status Orientation Oriented x 4 [facility] 04-21-2024 Mental Status [facility] 01-27-2024 Mental Status Orientation Oriented x 4 [facility] 01-27-2024 Mental Status [facility] 01-25-2024 Cognitive function Voice/Name [facility] Work Phone: 01-18-2023 Mental Status Oriented x 4 [facility] 01-18-2023 Mental Status [facility] 01-18-2023 Mental Status [facility] 02-24-2022 Mental Status [facility] 02-24-2022 Mental Status [facility] Clinical Notes 08-11-2020 to 07-29-2025 Telephone Encounter - Mile Wheat - 07/29/2025 8:56 AM EDTTelephone Encounter - Mile Wheat - 07/29/2025 8:56 AM EDTTelephone Encounter - Meghan Caceres - 07/29/2025 8:14 AM EDT Note Date & Type Note Facility 07-29-2025 Telephone encounter Note Form atting of this note might be different from the original. I called and spoke with the patient. She wanted to wait until end august to give her job enough notice for time off. Patient is scheduled 09/18/25 2:00pm with Maria Elena in [place]. Mile Wheat [facility] 07-29-2025 Miscellaneous Notes Formattin g of this note might be different from the original. I called and spoke with the patient. She wanted to wait until end august to give her job enough notice for time off. Patient is scheduled 09/18/25 2:00pm with Maria Elena in [place]. 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 Looking for second opinion. Please call and get patient scheduled Meghan Caceres [facility] [place] [address] [place] [address] P: [phone] F: [phone] documented in this encounter [facility] 07-29-2025 Telephone encounter Note Form atting of this note might be different from the original. The patient is coming in for back pain and numbness and tingling in legs. The referring physician is N/A. The patient has [employer] insurance. Have you had Pain Management in the past 3 years? No If yes, where? N/A (We will need these records prior to scheduling patient) Are you currently taking pain medication? No If so, please list: Lyrica (Our providers will NOT take over prescribing or managing medications that are already being prescribed by another provider unless it is deemed appropriate after reviewing their records.) Mile Wheat [facility] 07-29-2025 Miscellaneous Notes Formattin g of this note might be different from the original. The patient is coming in for back pain and numbness and tingling in legs. The referring physician is N/A. The patient has [employer] insurance. Have you had Pain Management in the past 3 years? No If yes, where? N/A (We will need these records prior to scheduling patient) Are you currently taking pain medication? No If so, please list: Lyrica (Our providers will NOT take over prescribing or managing medications that are already being prescribed by another provider unless it is deemed appropriate after reviewing their records.) Mile Wheat documented in this encounter [facility] 07-29-2025 Telephone encounter Note Form atting of this note might be different from the original. 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 Looking for second opinion. Please call and get patient scheduled Meghan Caceres [facility] [place] [address] [place] [address] P: [phone] F: [phone] [facility] 04-24-2025 Note Exam Date Time Procedure Performing Provider Status 04/24/25 7:57 AM VL - ABIs (ankles only) - Ignacio GARCIA MD; Auth (Verified) [id number] Note. MICRO - Microbiology PROCEDURE: Culture Beta Strep Only [*1] SOURCE: Throat BODY SITE: COLLECTED DATE/TIME: 03/11/2025 11:49 EDT RECEIVED DATE/TIME: 03/11/2025 15:45 EDT START DATE/TIME: 03/11/2025 15:45 EDT FREE TEXT SOURCE: FINAL REPORTS Final Report [] Verified Date/Time/Personnel: 03/13/2025 07:09 EDT No Beta Strep isolated at 48hrs. PRELIMINARY REPORTS Preliminary Report [] Verified Date/Time/Personnel: 03/12/2025 10:43 EDT No beta Strep isolated at 24 hours. Performing Locations *1: This test was performed at: [facility], [address] [place] [address], [id number] , [facility] [id number] Hospital Discharge instructions Patient Education 02/11/2025 10:53:24 Fall Prevention in the Home, Adult Fall Prevention in the Home, Adult Falls can cause injuries and can affect people from all age groups. There are many simple things that you can do to make your home safe and to help prevent falls. Ask for help when making these changes, if needed. What actions can I take to prevent falls? General instructions Use good lighting in all rooms. Replace any light bulbs that burn out. Turn on lights if it is dark. Use night-lights. Place frequently used items in [id number]-qt-[id number] places. Lower the shelves around your home if necessary. Set up furniture so that there are clear paths around it. Avoid moving your furniture around. Remove throw rugs and other tripping hazards from the floor. Avoid walking on wet floors. Fix any uneven floor surfaces. Add color or contrast paint or tape to grab bars and handrails in your home. Place contrasting color strips on the first and last steps of stairways. When you use a stepladder, make sure that it is completely opened and that the sides are firmly locked. Have someone hold the ladder while you are using it. Do not climb a closed stepladder. Be aware of any and all pets. What can I do in the bathroom? Keep the floor dry. Immediately clean up any water that spills onto the floor. Remove soap buildup in the tub or shower on a regular basis. Use non-skid mats or decals on the floor of the tub or shower. Attach bath mats securely with double-sided, non-slip rug tape. If you need to sit down while you are in the shower, use a plastic, non-slip stool. Install grab bars by the toilet and in the tub and shower. Do not use towel bars as grab bars. What can I do in the bedroom? Make sure that a bedside light is easy to reach. Do not use oversized bedding that drapes onto the floor. Have a firm chair that has side arms to use for getting dressed. What can I do in the kitchen? Clean up any spills right away. If you need to reach for something above you, use a sturdy step stool that has a grab bar. Keep electrical cables out of the way. Do not use floor pakistani or wax that makes floors slippery. If you must use wax, make sure that it is non-skid floor wax. What can I do in the stairways? Do not leave any items on the stairs. Make sure that you have a light switch at the top of the stairs and the bottom of the stairs. Have them installed if you do not have them. Make sure that there are handrails on both sides of the stairs. Fix handrails that are broken or loose. Make sure that handrails are as long as the stairways. Install non-slip stair treads on all stairs in your home. Avoid having throw rugs at the top or bottom of stairways, or secure the rugs with carpet tape to prevent them from moving. Choose a carpet design that does not hide the edge of steps on the stairway. Check any carpeting to make sure that it is firmly attached to the stairs. Fix any carpet that is loose or worn. What can I do on the outside of my home? Use bright outdoor lighting. Regularly repair the edges of walkways and driveways and fix any cracks. Remove high doorway thresholds. Trim any shrubbery on the main path into your home. Regularly check that handrails are securely fastened and in good repair. Both sides of any steps should have handrails. Install guardrails along the edges of any raised decks or porches. Clear walkways of debris and clutter, including tools and rocks. Have leaves, snow, and ice cleared regularly. Use sand or salt on walkways during winter months. In the garage, clean up any spills right away, including grease or oil spills. What other actions can I take? Wear closed-toe shoes that fit well and support your feet. Wear shoes that have rubber soles or lowheels. Use mobility aids as needed, such as canes, walkers, scooters, and crutches. Review your medicines with your health care provider. Some medicines can cause dizziness or changesin blood pressure, which increase your risk of falling. Talk with your health care provider about other ways that you can decrease your risk of falls. Thismay include working with a physical therapist or animal attendants and trainers to improve your strength, balance, and endurance. Where to find more information Centers for Disease Control and PreventionKEVIN: https://www.cdc.gov National [place] on Aging: https://zs1rljm.james.nih.gov Contact a health care provider if: You are afraid of falling at home. You feel weak, drowsy, or dizzy at home. You fall at home. Summary There are many simple things that you can do to make your home safe and to help prevent falls. Ways to make your home safe include removing tripping hazards and installing grab bars in the bathroom. Ask for help when making these changes in your home. This information is not intended to replace advice given to you by your health care provider. Make sure you discuss any questions you have with your health care provider. Document Released: 10/26/2003 Document Revised: 10/18/2018 Document Reviewed: 06/20/2018 [employer] [place] [employer] [place] Patient Education 2020 [employer] (formerly [employer]). Follow Up Care 02/05/2025 18:42:05 With:GUSTABO GARCIA DO, [facility] Address: [address] [facility] [place] [address]- [phone] When: Unknown Comments:Call for appointment With:KAYCEE ARAUJO DO, Internal Medicine, [facility] Physicians, [facility]/IM sub group Address: [address] [place] [address]- [phone] When: Unknown Comments:Please call the office to schedule a hospital follow up appointment. With:CHRIS OLMSTEAD MD, Neurosurgery Address: [address] [facility] [address] [place] [place] [address]- [phone] When:03/04/2025 11:30:00 [facility] 2025 Discharge summary Date of Service 02/11/2025 10:58:08 Discharge Diagnosis Severe right hip pain likely with piriformis syndrome post brief dislocation of her right hip with sciatica symptoms Acute on chronic back pain Opiate, Robaxin, Medrol Dosepak, outpatient physical therapy, Lidoderm patch Multilevel degenerative changes, severe at T10-11 with large right subarticular zone herniation Moderate narrowing of the spinal canal and effacement of the right hemicord at T10-11 Previously known lumbar disc disease, stable with postop changes noted on imaging Patient spinal changes unlikely causing acute symptomatology Hyperglycemia in the setting of known type 2 diabetes mellitus Worsened from steroid Mild nonoliguric SYED and CKD stage III with a baseline of around 1.1-1.2 Close monitoring Hypomagnesemia Stable Constipation Resolved Hospital Course 49-year-old female with medical history significant for DM2, hypertension, GERD, peripheral neuropathy, anxiety, migraine headaches, CKD 3, fibromyalgia, polycystic ovarian syndrome, cauda equina syndrome status post laminectomy and foraminectomy. Patient presents to the hospital with complaints of right hip pain and sciatica. Patient had been following up with neurosurgery as an outpatient but patient had further worsening. Patient has no redflag symptomatology. Patient did have MRI performed showing moderate spinal canal stenosis osteophyte formation. Patient further clarified she had an acute event where she felt her leg had popped in and out. Patient was seen by orthopedic surgery recommending for conservative management for likely piriformis syndrome which occurred from hip dislocation and relocation. Patient was initiated on Robaxin and Medrol Dosepak. Patient today on 02/11 is ambulating. Still having some discomfort. Patient however can be discharged with close outpatient follow-up from primary care and neurosurgery. Allergies Imitrex(Severe) Hypotension Pork(Severe) anaphylaxis amLODIPine (Mild) lip swelling Actos blurred vision Compazine Anxiety Diflucan Lip swelling Maxalt Hypotension Norflex Anxiety Reglan lisinopril angioedema Consults Consult to Physician - Ordered -- 02/06/25 5:03:00 EDT, CHANA GOTTI MD, Routine, Acute on chronic back pain Consult to Physician (Physician Consult) - Ordered -- 02/08/25 10:59:00 EDT, GUSTABO GARCIA DO, Routine, Severe right hip pain status post fall. Imaging Results and Diagnostics XR Abdomen 2 Views w/ Decub/Erect Result Date: February 09, 2025 Verified By: NATE LENNON MD CLINICAL STATEMENT: IMPRESSION: No evidence of high-grade bowel obstruction. Fecal loading of the largebowel. I have personally reviewed the images of this examination and agree with theresident's findings and interpretation MRI Spine Thoracic w/ + w/o Contrast Result Date: February 07, 2025 Verified By: SHIRA CARVAJAL DO CLINICAL STATEMENT: IMPRESSION: 1. No acute abnormality or abnormal enhancement of the thoracic spine.2. Multilevel degenerative changes, most severe at T10-11 with a large rightsubarticular zone herniation with superior extrusion resulting in moderatenarrowing of the spinal canal and effacement of the right hemicord.There isminimal increased signal within the left china cord at this level, overallsimilar in appearance to the prior study. MRI Spine Lumbar w/ + w/o Contrast Result Date: February 07, 2025 Verified By: SHIRA CARVAJAL DO CLINICAL STATEMENT: IMPRESSION: 1. No acute abnormality, fracture, or worsening narrowing of the spinal canalor neural foramina.2. Redemonstration of changes status post L4 laminectomy for L4-5decompression.3. Decreasedpostoperative soft tissue enhancement. No significant edema. Nofluid collection.4. Stable appearance of a large left central and subarticular zone discextrusion at T12-L1 with associated moderate narrowing of the spinal canal.5. Moderate right neural foraminal stenosis at L4-5. CT Spine Lumbar w/o Contrast Result Date: February 05, 2025 Verified By: Shahida_MICHELLE gunter CLINICAL STATEMENT: IMPRESSION: Unremarkable non-contrast CT of the lumbar spine. Moderate spinal canal stenosis at T12-L1 due to disc osteophyte complex. CT Pelvis w/o Contrast Result Date: February 05, 2025 Verified By: UMAIR PICHARDO MD CLINICAL STATEMENT: IMPRESSION: No acute fracture or dislocation. I have personally reviewed the images of this examination and agree with theresident's findings and interpretation. Physical Exam Vitals and Measurements T: 36.5 C (Oral) TMIN: 36.5 C (Oral) TMAX: 36.7 C (Oral) HR: 65 RR: 18 BP: 132/72 SpO2: 92% Weight Dosing Weight: 120.2 kg (02/06/25) Dosing Weight: 120.2 kg (02/05/25) Exam: CVS: regular rate and rhythm Extremities: No edema, No cyanosis or clubbing. Pain with ROM RLE buttock and thigh. 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 [email or web address] Code Status Code Status - Ordered -- 02/06/25 4:42:00 EDT, Full Code, Constant Order Admission Date 02/05/25 Discharge Date 02/11/25 Patient Instructions You had significant foraminal stenosis of your lumbar spine. You also had symptomatology of sciatica. Will treat short-term with Robaxin, Lidoderm patch, oxycodone, increased home dosing of Lyrica, Medrol Dosepak. Outpatient followup with neurosurgery Medications New Prescription lidocaine topical (Lidoderm 5% topical patch)1 patch(es) Topical once a day for 14 Days. remove patches after 12 hours. Refills: 0. oxyCODONE (oxyCODONE 5 mg oral tablet ( IMMEDIATE release ))1 tab(s) by mouth every 4 hours as needed Pain, breakthrough for 3 Days. Refills: 0. polyethylene glycol 3350 (Miralax Powder Packet)17 gram(s) by mouth once a day for 7 Days. Refills:0. Changed acetaminophen (acetaminophen 500 mg oral tablet)2 tab(s) by mouth three (3) times a day for 5 Days.Refills: 0. pregabalin (pregabalin 100 mg oral capsule)1 cap by mouth three (3) times a day for 30 Days. Refills: 0. Unchanged ALPRAZolam (ALPRAZolam 0.5 mg oral tablet)1 to 2 tabs daily as needed for panic attacks.; as neededanxiety. Refills: 2. aspirin (aspirin 81 mg oral delayed release tablet)1 tab(s) by mouth every day. atorvastatin (atorvastatin 10 mg oral tablet)1 tab(s) by mouth once a day. Refills: 11. buPROPion (buPROPion 150 mg/24 hours (XL) oral tablet, extended release)TAKE 1 TABLET BY MOUTH EVERY DAY. Refills: 1. cetirizine (cetirizine 10 mg oral capsule)1 cap by mouth once a day. cholecalciferol (Vitamin D3 250 mcg (10,000 intl units) oral capsule)1 cap by mouth every other day. cloNIDine (cloNIDine 0.3 mg oral tablet)1 tab(s) by mouth two (2) times a day. Refills: 5. levalbuterol (levalbuterol tartrate HFA 45mcg/inh inhaler)1 puff(s) by inhalation every 6 hours as needed Shortness of breath (SOB). Refills: 1. levalbuterol (Xopenex 0.63 mg/3 mL inhalation solution)3 Milliliter Nebulized inhalation three (3) times a day as needed as needed for wheezing. Refills: 3. metFORMIN (MetFORMIN (Eqv-Glucophage XR) 500 mg oral tablet, EXTENDED RELEASE)3 tab(s) by mouth once a day. Refills: 1. methocarbamol (methocarbamol 500 mg oral tablet)1 tab(s) by mouth four (4) times a day for 10 Days.Refills: 0. montelukast (Singulair 10 mg oral tablet)1 tab(s) by mouth once a day. Refills: 3. omeprazole (omeprazole 40 mg oral delayed release capsule)1 cap by mouth once a day. ondansetron (ondansetron 4 mg oral tablet, disintegrating)1 tab(s) by mouth three (3) times a day as needed Nausea/Vomiting. propranolol (propranolol 40 mg oral tablet)1 tab(s) by mouth once a day. Refills: 3. QUEtiapine (QUEtiapine 50 mg oral tablet)TAKE 1 TABLET BY MOUTH EVERYDAY AT BEDTIME. Refills: 1. rosuvastatin (rosuvastatin 20 mg oral tablet)1 tab(s) by mouth every day. Refills: 1. senna (Senna)Oral QDAY. spironolactone (spironolactone 50 mg oral tablet)1 tab(s) by mouth once a day. Refills: 1. tirzepatide (Mounjaro 10 mg/0.5 mL subcutaneous solution)10 Milligram Subcutaneous every week. rotate injection sites. Refills: 1. Discontinued tiZANidine (tiZANidine 4 mg oral tablet)1 tab(s) by mouth every 8 hours as needed NEEDED FOR MUSCLE SPASMS. Refills: 0. Follow Up Follow Up with GUSTABO GARCIA DO, [facility] Where:[address] [facility] [place] [address]- [phone] Additional Information: Call for appointment Follow Up with KAYCEE ARAUJO DO, Internal Medicine, [facility] Physicians, [facility] Where:[address] [place], [place] [id number]- [phone] Additional Information: Please call the office to schedule a hospital follow up appointment. Follow Up with CHRIS OLMSTEAD MD, Neurosurgery When:03/04/2025 11:30 AM EDT Where:[address] [facility] [address] [place] [address]- [phone] Follow Up Appointments No qualifying data available. Follow Up Labs/Studies Discharge Labs No Follow-up Labs Discharge Studies Discharge to Outpatient OT - Ordered -- Therapy Order: Outpatient OT Eval and Treat, foraminal stenosis, Reason: Weakness, 02/11/25 10:43:00 EDT Discharge to Outpatient PT - Ordered -- Therapy Order: Outpatient PT Eval and Treat, foraminal stenosis, Reason: Difficulty with ambulation, 02/11/25 10:43:00 EDT Discharge Diet Discharge Diet - Ordered -- Calories Permitted: 1500 kcal, No changes were made to your diet during your hospital stay. Please resume your pre hospitalization diet on discharge., 02/11/25 10:43:00 EDT Discharge Activity Discharge Activity - Ordered -- Resume your pre-hospitalization activity, 02/11/25 10:43:00 EDT Condition on Discharge stable Discharge Disposition home Time Spent >30 minutes Digitally Signed by TRENTON WATTS MD on 02/11/2025 11:01 AM [id number] Note Discharge Instructions Thank you for allowing [facility] to assist you with your healthcare needs. The following is importantdischarge information regarding your hospital visit. Your Care Team KAYCEE ARAUJO DO Your Diagnosis Anxiety Asthma Intractable pain Neuropathic pain Piriformis syndrome of right side Right buttock pain What to do next Instructions From Your Doctor You had significant foraminal stenosis of your lumbar spine. You also had symptomatology of sciatica. Will treat short-term with Robaxin, Lidoderm patch, oxycodone, increased home dosing of Lyrica, Medrol Dosepak. Outpatient followup with neurosurgery Scheduled Follow-Up Appointments Appointment Type When With Where Contact Information StatusMRI Spine Lumbar w/ + w/o Contrast 02/20/2025 03:30 PM EDT [facility] [phone] Confirmed MRI Spine Thoracic w/ + w/o Contrast 02/20/2025 04:15 PM EDT [facility] [phone] Confirmed NS OV 03/04/2025 11:30 AM EDT CHRIS OLMSTEAD MD Neurosurgery [address] [phone] Confirmed ENDO OV 03/16/2025 02:45 PM EDT ELIANE HENSON MD [facility] Confirmed ENDO OV 04/27/2025 02:15 PM EDT ELIANE HENSON MD [facility] Confirmed Follow Up Appointments Follow Up with GUSTABO GARCIA DO, [facility] Where:[address] [place] [address] Orthopedic [place] [address] [phone] Additional Information: Call for appointment Follow Up with KAYCEE ARAUJO DO, Internal Medicine, [facility] Phys[facility], [facility] Where:[address] [place] [address]- [phone] Additional Information: Please call the office to schedule a hospital follow up appointment. Follow Up with CHRIS OLMSTEAD MD, Neurosurgery When:03/04/2025 11:30 AM EDT Where:[address] [place] [address]- [phone] The Following Activity and Diet Have Been Ordered for You Discharge Activity - Ordered -- Resume your pre-hospitalization activity, 02/11/25 10:43:00 EDT Discharge Diet - Ordered -- Calories Permitted: 1500 kcal, No changes were made to your diet during your hospital stay. Please resume your pre hospitalization diet on discharge., 02/11/25 10:43:00 EDT The Following Equipment Has Been Ordered for You No qualifying data available. The Following Treatments Have Been Ordered for You Discharge Labs No qualifying data available. Discharge Radiology No qualifying data available. Other Therapies Occupational Therapy Outpatient Eval & Treat (Occupational Therapy Outpatient Evaluation and Treatment) - Future -- 02/11/25, Unspecified, Bea, foraminal stenosis, Weakness, Future Order, Once, No Physical Therapy Outpatient Eval & Treat (Physical Therapy Eval and Treat Outpatient) - Future -- 02/11/25, Unspecified, Bea, foraminal stenosis, Difficulty with ambulation, Future Order, Once, No Post Acute Orders No qualifying data available. Someone Will Contact You Regarding These Home Health Referrals No home referrals have been ordered for you. No one will call you. Allergies Imitrex(Severe) Hypotension Pork(Severe) anaphylaxis amLODIPine (Mild) lip swelling Actos blurred vision Compazine Anxiety Diflucan Lip swelling Maxalt Hypotension Norflex Anxiety Reglan lisinopril angioedema Immunizations This Visit Given Vaccine Dateinfluenza virus vaccine, inactivated 02/09/2025 Medications Please ask your primary doctor or pharmacist before taking any other medication not listed, including over the counter drugs, herbal medications, vitamins and or supplements as they may interact withyour home medications. What How Much When Why Instructions Last Dose New lidocaine topical (Lidoderm 5% topical patch) 1 patch(es) Topical Once a day Duration: 14 Days remove patches after 12 hours Pickup at [facility]/pharmacy #[id number] New oxyCODONE (oxyCODONE 5 mg oral tablet ( IMMEDIATE release )) 1 tab(s) by mouth Every 4 hours as needed for Pain, breakthrough Neuropathic pain Intractable pain Duration: 3 Days Pickup at [facility]/pharmacy #[id number] New polyethylene glycol 3350 (Miralax Powder Packet) 17 gram(s) by mouth Once a day Duration: 7 Days Pickup at [facility]/pharmacy #[id number] Changed acetaminophen (acetaminophen 500 mg oral tablet) 2 tab(s) by mouth Three (3) times a day Duration: 5 Days Pickup at [facility]/pharmacy #[id number] Changed methocarbamol (methocarbamol 1000 mg oral tablet) 1 tab(s) by mouth Three (3) times a day Duration: 7 Days Pickup at [facility]/pharmacy #[id number] Changed methocarbamol (methocarbamol 500 mg oral tablet) 1 tab(s) by mouth Four (4) times a day Duration: 10 Days Changed pregabalin (pregabalin 100 mg oral capsule) 1 cap by mouth Three (3) times a day Neuropathic pain Duration: 30 Days Unchanged ALPRAZolam (ALPRAZolam 0.5 mg oral tablet) See instructions Anxiety 1 to 2 tabs daily as needed for panic attacks., As needed for anxiety Unchanged aspirin (aspirin 81 mg oral delayed release tablet) 1 tab(s) by mouth Every day Unchanged atorvastatin (atorvastatin 10 mg oral tablet) 1 tab(s) by mouth Once a day Unchanged buPROPion (buPROPion 150 mg/ 24 hours (XL) oral tablet, extended release) See instructions TAKE 1 TABLET BY MOUTH EVERY DAY Unchanged cetirizine (cetirizine 10 mg oral capsule) 1 cap by mouth Once a day Unchanged cholecalciferol (Vitamin D3 250 mcg (10,000 intl units) oral capsule) 1 cap by mouth Every other day Unchanged cloNIDine (cloNIDine 0.3 mg oral tablet) 1 tab(s) by mouth Two (2) times a day Unchanged levalbuterol (levalbuterol tartrate HFA 45mcg/ inh inhaler) 1 puff(s) by inhalation Every 6 hours as needed for Shortness of breath (SOB) Asthma Unchanged levalbuterol (Xopenex 0.63 mg/ 3 mL inhalation solution) 3 Milliliter Nebulized inhalation Three (3) times a day as needed for as needed for wheezing Unchanged metFORMIN (MetFORMIN (Eqv-Glucophage XR) 500 mg oral tablet, EXTENDED RELEASE) 3 tab(s) by mouth Once a day Unchanged montelukast (Singulair 10 mg oral tablet) 1 tab(s) by mouth Once a day Asthma Unchanged omeprazole (omeprazole 40 mg oral delayed release capsule) 1 cap by mouth Once a day Unchanged ondansetron (ondansetron 4 mg oral tablet, disintegrating) 1 tab(s) by mouth Three (3) times a day as needed for Nausea/Vomiting Unchanged propranolol (propranolol 40 mg oral tablet) 1 tab(s) by mouth Once a day Unchanged QUEtiapine (QUEtiapine 50 mg oral tablet) See instructions TAKE 1 TABLET BY MOUTH EVERYDAY AT BEDTIME Unchanged rosuvastatin (rosuvastatin 20 mg oral tablet) 1 tab(s) by mouth Every day Unchanged senna (Senna) See instructions Oral QDAY Unchanged spironolactone (spironolactone 50 mg oral tablet) 1 tab(s) by mouth Once a day Unchanged tirzepatide (Mounjaro 10 mg/ 0.5 mL subcutaneous solution) 10 Milligram Subcutaneous Every week rotate injection sites Pharmacy Information [facility]/pharmacy #[id number]: [address] [place], [place] [id number] [phone] What How Much When Comments Stop Taking tiZANidine (tiZANidine 4 mg oral tablet) 1 tab(s) by mouth Every 8 hours as needed for NEEDED FOR MUSCLE SPASMS Please take this list to your next doctor s visit. Bring all medications you take, including over the counter medications, herbals and other supplements with you to your doctor s visit. Patients and families are reminded to discard old lists and to update any records with all medication providers or retail pharmacies. Education Materials Fall Prevention in the Home, Adult Falls can cause injuries and can affect people from all age groups. There are many simple things that you can do to make your home safe and to help prevent falls. Ask for help when making these changes, if needed. What actions can I take to prevent falls? General instructions Use good lighting in all rooms. Replace any light bulbs that burn out. Turn on lights if it is dark. Use night-lights. Place frequently used items in [id number]-[id number] places. Lower the shelves around your home if necessary. Set up furniture so that there are clear paths around it. Avoid moving your furniture around. Remove throw rugs and other tripping hazards from the floor. Avoid walking on wet floors. Fix any uneven floor surfaces. Add color or contrast paint or tape to grab bars and handrails in your home. Place contrasting color strips on the first and last steps of stairways. When you use a stepladder, make sure that it is completely opened and that the sides are firmly locked. Have someone hold the ladder while you are using it. Do not climb a closed stepladder. Be aware of any and all pets. What can I do in the bathroom? Keep the floor dry. Immediately clean up any water that spills onto the floor. Remove soap buildup in the tub or shower on a regular basis. Use non-skid mats or decals on the floor of the tub or shower. Attach bath mats securely with double-sided, non-slip rug tape. If you need to sit down while you are in the shower, use a plastic, non-slip stool. Install grab bars by the toilet and in the tub and shower. Do not use towel bars as grab bars. What can I do in the bedroom? Make sure that a bedside light is easy to reach. Do not use oversized bedding that drapes onto the floor. Have a firm chair that has side arms to use for getting dressed. What can I do in the kitchen? Clean up any spills right away. If you need to reach for something above you, use a sturdy step stool that has a grab bar. Keep electrical cables out of the way. Do not use floor pakistani or wax that makes floors slippery. If you must use wax, make sure that it is non-skid floor wax. What can I do in the stairways? Do not leave any items on the stairs. Make sure that you have a light switch at the top of the stairs and the bottom of the stairs. Have them installed if you do not have them. Make sure that there are handrails on both sides of the stairs. Fix handrails that are broken or loose. Make sure that handrails are as long as the stairways. Install non-slip stair treads on all stairs in your home. Avoid having throw rugs at the top or bottom of stairways, or secure the rugs with carpet tape to prevent them from moving. Choose a carpet design that does not hide the edge of steps on the stairway. Check any carpeting to make sure that it is firmly attached to the stairs. Fix any carpet that is loose or worn. What can I do on the outside of my home? Use bright outdoor lighting. Regularly repair the edges of walkways and driveways and fix any cracks. Remove high doorway thresholds. Trim any shrubbery on the main path into your home. Regularly check that handrails are securely fastened and in good repair. Both sides of any steps should have handrails. Install guardrails along the edges of any raised decks or porches. Clear walkways of debris and clutter, including tools and rocks. Have leaves, snow, and ice cleared regularly. Use sand or salt on walkways during winter months. In the garage, clean up any spills right away, including grease or oil spills. What other actions can I take? Wear closed-toe shoes that fit well and support your feet. Wear shoes that have rubber soles or lowheels. Use mobility aids as needed, such as canes, walkers, scooters, and crutches. Review your medicines with your health care provider. Some medicines can cause dizziness or changesin blood pressure, which increase your risk of falling. Talk with your health care provider about other ways that you can decrease your risk of falls. Thismay include working with a physical therapist or animal attendants and trainers to improve your strength, balance, and endurance. Where to find more information Centers for Disease Control and PreventionKEVIN: https://www.cdc.gov National [place] on Aging: https://ya8lmsi.james.nih.gov Contact a health care provider if: You are afraid of falling at home. You feel weak, drowsy, or dizzy at home. You fall at home. Summary There are many simple things that you can do to make your home safe and to help prevent falls. Ways to make your home safe include removing tripping hazards and installing grab bars in the bathroom. Ask for help when making these changes in your home. This information is not intended to replace advice given to you by your health care provider. Make sure you discuss any questions you have with your health care provider. Document Released: 10/26/2003 Document Revised: 10/18/2018 Document Reviewed: 06/20/2018 [employer] [place] Patient Education 2020 [employer] (formerly [employer]). Additional Information VACCINATE! IT SAVES LIVES! Members of the community who have not yet received the COVID-19 vaccine and would like to receive it can visit one of [facility] vaccine clinics. There are many vaccine clinic locations within the [facility]. For locations and available times, please visit https://gettheshot.coronavirus.[place].gov/. It is important to note that some COVID mobile vaccine clinics are held outdoors and may be canceled in rainy or stormy conditions. To learn more about pediatric vaccinations (ages 5-11), we invite you to visit the [facility] webpage. https://www.[facility].org/pages/4848-Sdyge-Ndylmkcpjlg-Ydqfcedpek-Fkoaa-Mbz stions.htmlTo learn more about the COVID-19 vaccine, we invite you to visit the CDC website for a list of frequently asked questions.https://www.cdc.gov/coronavirus/2019-ncov/vaccines/faq.html [facility] Patient Portal Access Instructions: Stay connected with your healthcare team and access your personal medical information anytime with the [facility] Patient Portal. Please follow the directions below to create your [facility] account: 1.Access the email account you provided upon registration to the hospital/physician office.2.Look for an invitation email from [facility].3.Open the email and access the invitation link: AcceptInvitation to [facility].4.Fill in the required garcia to create your account. To access your account, visit eflow/[employer]hart. Click the blue button labeled Access Patient Portal and then log in with the username and password that you created in the steps above. You will be able to view your test results, lab results, a summary of your visits, upcoming appointments and more. There is also a convenient messaging option where you can send secure messages to your p Chewsevider. In addition, you will have the ability to download any documents or summaries to your computer and/or send the information securely to a physician. Remember that your healthcare information is confidential, so carefully consider who you will allowto register on the [facility] Patient Portal for access to your information. You can also access the [facility] Patient Portal on the [facility] demario. Simply click on Patient Portal and then log into your account. If you would like to receive a full copy of your medical records, please contact the [facility] Medical Records Department by calling [phone], Sunday through Sunday between 8 a.m. and 4:30 p.m. HOW TO SAFELY DISPOSE OF PRESCRIPTION MEDICATIONS Please use one of the following methods to safely dispose of your unused medications. 1.Use a drug disposal kit: the drug disposal pouch allows you to safely discard your old and unuseddrugs. Ask your nurse to give you one when you are discharged.2.Visit a local take-back location: Many local pharmacies and police departments have programs that collect old and unwanted prescriptiondrugs. Call your local pharmacy or go to http://Sympoz (dba Craftsy).imbookin ([place])/3P0Vy1j to find one close to you.3.Make use of household items: Use cat litter or old coffee grounds to dispose medications if other options arenot available. Mix your drugs with these household products, seal them in an airtight container andthrow it into the garbage. Call [facility]: [phone] to be sure your drugs can be [...] a CHART COPY. Signatures Patient Education Materials Fall Prevention in the Home, Adult Medication Leaflets My discharge plan and instructions have been reviewed and explained to me and I,APRIL ROSA understand my current condition and have read and understand these discharge instructions. I have received a written copy of the plan/instructions. If I have questions, I am aware that I should contact my doctor. 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 Patient presents to the hospital with complaints of right hip pain and sciatica. Patient had been following up with neurosurgery as an outpatient but patient had further worsening. Patient has no redflag symptomatology. Patient did have MRI performed showing moderate spinal canal stenosis osteophyte formation. Patient further clarified she had an acute event where she felt her leg had popped in and out. Patient was seen by orthopedic surgery recommending for conservative management for likely piriformis syndrome which occurred from hip dislocation and relocation. Patient today on 02/10 having significant amount of discomfort will adjust medications start Robaxininstead Zanaflex. Will start Medrol Dosepak. If patient tolerates consider for disposition on 02/11 with outpatient follow-up. Objective Vitals and Measurements T: 36.6 C (Oral) HR: 67 RR: 18 BP: 117/73 SpO2: 95% Intake and Output 7AM Yesterday to 7AM Today Intake and Output (Last 24 hours) Intake Oral Intake 1000.00 Output Stool Count 1.00 Urine Count 4.00 Total Summary Total Intake 1000.00 Total Output 0.00 Fluid Balance 1000.00 Physical Exam Exam: Abdomen: soft, non distended. 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 aaox3 Weight Dosing Weight: 120.2 kg (02/06/25) Dosing Weight: 120.2 kg (02/05/25) Medications Medications (27) Active Scheduled: (18) acetaminophen 500 mg Tablet 1,000 mg 2 tab(s), Oral, TID atorvastatin 10 mg tablet 10 mg 1 tab(s), Oral, qDay bupropion 150 mg/24 hours ER tablet 150 mg 1 tab(s), Oral, qDay cholecalciferol 125 mcg capsule (Vit D3 5000 unit(s)) 250 mcg 2 cap(s), Oral, Every other day cloNIDine 0.3 mg tablet 0.3 mg 1 tab(s), Oral, BID heparin 5,000 units/mL (1 mL) vial 5,000 unit(s) 1 mL, Subcutaneous, q8h insulin glargine 10 unit(s) 0.1 mL, Subcutaneous (INT), qAM insulin lispro 100 units/mL Soln (3 mL) Give 0-10 units/dose, Subcutaneous, TIDAC methocarbamol 500 mg Tablet 1,000 mg 2 tab(s), Oral, TID methylPREDNISolone 24 mg, Oral, Once montelukast 10 mg Tablet 10 mg 1 tab(s), Oral, qDay omeprazole [address] capsule 40 mg 1 cap(s), Oral, qDay polyethylene glycol 3350 - UD packet 17 gram(s) 15 mL, Oral, BID pregabalin 50 mg capsule 100 mg 2 cap(s), Oral, TID propranolol 40 mg tablet 40 mg 1 tab(s), Oral, qDay QUEtiapine 50 mg tablet 50 mg 1 tab(s), Oral, qHS rosuvastatin 20 mg tablet 20 mg 1 tab(s), Oral, Daily senna 8.6 mg Tablet 17.2 mg 2 tab(s), Oral, BID Continuous: (0) PRN: (9) albuterol - ipratropium 2.5 mg-0.5 mg/3 mL Inhal Laura UD 3 mL, Inhalation, q4hRT ALPRAZOLam 0.5 mg tablet 0.5 mg 1 tab(s), Oral, BID bisacodyl 10 mg Suppository 10 mg 1 supp, Rectal, qDay dextrose 50% Solution Disp syringe 50 mL 25 gram(s) 50 mL, IV Push, AsDirected guaifenesin 100 mg/5 mL Liquid 120 mL 200 mg 10 mL, Oral, q4h melatonin 3 mg tablet 3 mg 1 tab(s), Oral, qHS ondansetron 2 mg/ 1 mL 2 mL INJ 4 mg 2 mL, IV Push, q4h oxycodone 5 mg tablet (immediate release) 7.5 mg 1.5 tab(s), Oral, q4h polyethylene glycol 3350 - UD packet 17 gram(s) 15 mL, Oral, qDay Lab Results 02/10 08:17 Glucose Level: 114 H Sodium Level: 140 Potassium Level: 4.3 BUN: 13.0 Creatinine Lvl (s): 1.10 02/09 07:41 Glucose Level: 159 H Sodium Level: 136 Potassium Level: 4.6 BUN: 14.0 Creatinine Lvl (s): 1.01 EKG No qualifying data available. Assessment/Plan Severe right hip pain likely with piriformis syndrome post brief dislocation of her right hip Acute on chronic back pain Opiate, Robaxin, Medrol Dosepak, outpatient physical therapy, Lidoderm patch Multilevel degenerative changes, severe at T10-11 with large right subarticular zone herniation Moderate narrowing of the spinal canal and effacement of the right hemicord at T10-11 Previously known lumbar disc disease, stable with postop changes noted on imaging Patient spinal changes unlikely causing acute symptomatology Hyperglycemia in the setting of known type 2 diabetes mellitus Worsened from steroid Mild nonoliguric SYED and CKD stage III with a baseline of around 1.1-1.2 Close monitoring Hypomagnesemia Stable Constipation Resolved Anticipated Date of Discharge Level of Care Indication Regular Floor DVT Prophylaxis Heparin SQ Maintenance IVF Indication NA / No maintenance IVF Indwelling Urinary Catheter Indication NA No indwelling catheter Anticipated Timeline of Discharge 24 hours Anticipated DC Disposition Home without services Digitally Signed by TRENTON WATTS MD on 02/10/2025 06:25 PM [id number]opa[facility] surgery Consult note Date of Service 02/08/[address] Jean History of Present Illness April is a 49 y.o. female with chronic back pain followed by Dr. Olmstead. She had a fall 4 days agothinking she dislocated and relocated R hip. Since she has had R hip pain. Orthopedic surgery was consulted for evaluation and management. Pt evaluated at bedside resting comfortably in bed in no acute distress. She states that she had a mechanical fall 4 days ago and felt a pop in her right hip and then subsequently felt another pop inher right hip. She states she was able to ambulate after this episode. She states she has had pain to her right buttocks that radiates down her right lower extremity. Patient notes that this pain is chronic but the fall has flared this pain. She endorses intermittent numbness and tingling down right lower extremity but currently denies any numbness, tingling, weakness to her right lower extremity. Patient provides that she is seeing neurosurgery Dr. Olmstead for back pain and has received lumbar injections. She states that she would like a injection in her right buttocks. She notes that she cannottake NSAIDs. She states that she has tried muscle relaxers in the past with no relief of pain. Review of Systems ROS negative unless otherwise stated by HPI Physical Exam Vitals and Measurements T: 36.5 C (Oral) TMIN: 36.5 C (Oral) TMAX: 36.8 C (Oral) HR: 70 RR: 18 BP: 108/66 SpO2: 94% Weight Dosing Weight: 120.2 kg (02/06/25) Dosing Weight: 120.2 kg (02/05/25) Right Lower Extremity -There is no obvious deformity to right lower extremity. -Skin is intact. There is no warmth, erythema, swelling, or ecchymosis to right hip. -When asked to point to where the pain is patient points to the middle of her right buttocks. Thereis tenderness to palpation to the piriformis muscle. There is no pain with passive range of motion of right hip. Patient has full passive flexion, extension, internal, external rotation, abduction, and adduction of right hip. -Straight leg raise is positive on the right at 40 degrees of hip flexion. Strength 3 out of 5 to right lower extremity. EVA test is positive. -Knee flexion/extension, ankle plantarflexion/dorsiflexion, EHL FHL intact. -DP and PT pulse 2+ - Sensation grossly intact L2-S2 - Calf soft and non-tender Lab Results 02/08 07:21 Glucose Level: 122 H Sodium Level: 139 Potassium Level: 4.5 BUN: 8.0 Creatinine Lvl (s): 1.11 02/07 07:29 Glucose Level: 129 H Sodium Level: 140 Potassium Level: 4.1 BUN: 12.0 Creatinine Lvl (s): 1.17 Imaging Results and Diagnostics Imaging personally reviewed and interpreted. XR pelvis demonstrate no acute fracture or dislocation. CT pelvis demonstrates no acute fracture or dislocation. Assessment/Plan 1. Right buttock pain 2. Piriformis syndrome of right side 41-year-old female with acute on chronic right buttocks pain. Imaging reviewed and demonstrate no acute fracture or dislocation. Physical examination most consistent with piriformis syndrome with thereproduction of sciatica-like symptoms and tender point. Patient is requesting injection to this area however would recommend conservative management at this time. -No plan for acute orthopedic surgical intervention -Multimodal pain control: Tylenol, tizanidine, Medrol Dosepak, gabapentin. -Recommend PT for mobilization and stretching -Orthopedic surgery to sign off -Discussed with Dr. Landers Problem List/Past Medical History Ongoing Anxiety Asthma Celiac disease CKD (chronic kidney disease), stage III Claustrophobia Cough Depression, major, recurrent, moderate Diabetes mellitus, type II ([place]) Encounter for surgical aftercare following surgery of sense organs Environmental allergies Eosinophil adenoma Essential hypertension Fatigue Fibromyalgia Foot drop Foot drop, right Gastrointestinal distress Glasses High triglycerides Hirsutism Hypercholesterolemia Left-sided weakness Metabolic syndrome Migraine Morbid obesity Nausea & vomiting Neurologic disorder Orthostatic hypotension Paresthesia PCOS (polycystic ovarian syndrome) Personality disorder Sleep apnea Spasm Vitamin D deficiency Weakness Historical Diverticulitis Fall Migraine Myocardial infarction Suicidal behavior Procedure/Surgical History Right L4-L5 laminectomy with partial medial facetectomy and foraminotomy: 04/24/24 EGD (esophagogastroduodenoscopic) electrohydraulic lithotripsy of bezoar in stomach: 01/25/24 Colonoscopy: 01/25/24 Bowel: 2015 Fall: 02/25/16 History of vaginal hysterectomy: 05/2012 Stress testing using pharmacologic-induced stress Medications Inpatient acetaminophen, 1000 mg= 2 tab(s), Oral, TID ALPRAZolam, 0.5 mg= 1 tab(s), Oral, BID, PRN atorvastatin, 10 mg= 1 tab(s), Oral, qDay buPROPion 150 mg/24 hours (XL) oral tablet, extended release, 150 mg= 1 tab(s), Oral, qDay cloNIDine, 0.3 mg= 1 tab(s), Oral, BID Dextrose 50% IV Push, 25 gram(s)= 50 mL, IV Push, AsDirected, PRN DuoNeb, 3 mL, Inhalation, q4hRT, PRN guaiFENesin, 200 mg= 10 mL, Oral, q4h, PRN HumaLOG 100 units/mL subcutaneous solution, Give 0-10 units/dose, Subcutaneous, TIDAC Lantus, 10 unit(s)= 0.1 mL, Subcutaneous (INT), qAM melatonin, 3 mg= 1 tab(s), Oral, qHS, PRN methocarbamol, 500 mg= 1 tab(s), Oral, QID Miralax Powder Packet, 17 gram(s)= 15 mL, Oral, qDay, PRN morphine, 1 mg= 0.5 mL, IV Push, q4h, PRN omeprazole, 40 mg= 1 cap(s), Oral, qDay oxyCODONE 5 mg oral tablet ( IMMEDIATE release ), 5 mg= 1 tab(s), Oral, q4h, PRN pregabalin 100 mg oral capsule, 100 mg= 2 cap(s), Oral, TID propranolol, 40 mg= 1 tab(s), Oral, qDay QUEtiapine, 50 mg= 1 tab(s), Oral, qHS rosuvastatin, 20 mg= 1 tab(s), Oral, Daily Senokot, 17.2 mg= 2 tab(s), Oral, BID Singulair, 10 mg= 1 tab(s), Oral, qDay Vitamin D3 125 mcg (5000 intl units) oral capsule, 250 mcg= 2 cap(s), Oral, Every other day Zofran, 4 mg= 2 mL, IV Push, q4h, PRN Home acetaminophen 500 mg oral tablet, 1000 mg= 2 tab(s), Oral, TID ALPRAZolam 0.5 mg oral tablet, See Instructions, PRN, 2 refills aspirin 81 mg oral delayed release tablet, 81 mg= 1 tab(s), Oral, Daily atorvastatin 10 mg oral tablet, 10 mg= 1 tab(s), Oral, qDay, 11 refills buPROPion 150 mg/24 hours (XL) oral tablet, extended release, See Instructions, 1 refills cetirizine 10 mg oral capsule, 10 mg= 1 cap(s), Oral, qDay cloNIDine 0.3 mg oral tablet, 0.3 mg= 1 tab(s), Oral, BID, 5 refills levalbuterol tartrate HFA 45mcg/inh inhaler, 1 puff(s), Inhalation, q6hr, PRN, 1 refills MetFORMIN (Eqv-Glucophage XR) 500 mg oral tablet, EXTENDED RELEASE, 1500 mg= 3 tab(s), Oral, qDay, 1 refills methocarbamol 500 mg oral tablet, 500 mg= 1 tab(s), Oral, QID Mounjaro 10 mg/0.5 mL subcutaneous solution, 10 mg, Subcutaneous, qWeek, 1 refills omeprazole 40 mg oral delayed release capsule, 40 mg= 1 cap(s), Oral, qDay ondansetron 4 mg oral tablet, disintegrating, 4 mg= 1 tab(s), Oral, TID, PRN oxyCODONE 5 mg oral tablet ( IMMEDIATE release ), 5 mg= 1 tab(s), Oral, q4h, PRN pregabalin 100 mg oral capsule, 100 mg= 1 cap(s), Oral, TID propranolol 40 mg oral tablet, 40 mg= 1 tab(s), Oral, qDay, 3 refills QUEtiapine 50 mg oral tablet, See Instructions, 1 refills rosuvastatin 20 mg oral tablet, 20 mg= 1 tab(s), Oral, Daily, 1 refills Senna, See Instructions Singulair 10 mg oral tablet, 10 mg= 1 tab(s), Oral, qDay, 3 refills spironolactone 50 mg oral tablet, 50 mg= 1 tab(s), Oral, qDay, 1 refills Vitamin D3 250 mcg (10,000 intl units) oral capsule, 250 mcg= 1 cap(s), Oral, Every other day Xopenex 0.63 mg/3 mL inhalation solution, 0.63 mg= 3 mL, Nebulized, TID, PRN, 3 refills Allergies Imitrex(Severe) Hypotension Pork(Severe) anaphylaxis amLODIPine (Mild) lip swelling Actos blurred vision Compazine Anxiety Diflucan Lip swelling Maxalt Hypotension Norflex Anxiety Reglan lisinopril angioedema Social History Smoking Status - 08/28/2018 Never [...] attack: Father. Meniere's disease 11-AUG-2014 16:50:41<$>: Brother. Health Status Family Member(s) Immunizations pneumococcal 23-valent vaccine(Pneumovax: 0.5 mL (03/07/24) SARS-CoV-2 mRNA (tozinameran) vaccine: 0 unknown unit (09/12/22) SARS-CoV-2 mRNA (tozinameran) vaccine: 0.3 unknown unit (02/25/21) SARS-CoV-2 mRNA (tozinameran) vaccine: 0.3 unknown unit (01/28/21) tetanus-diphtheria toxoids: 0 unknown unit (10/01/13) Digitally Signed by GUSTABO GARCIA DO on 02/08/2025 03:24 PM Digitally Signed by GUSTABO GARCIA DO on 02/08/2025 03:24 PM Digitally Signed by LIAM ORTIZ MD on 02/09/2025 05:41 PM [id number] Note Date of Service 02/09/2025 Chief Complaint This is a 49-year-old female with a known history of type 2 diabetes mellitus, hypertension, upper lipidemia, GERD, peripheral neuropathy, anxiety/depression, migraine headaches, CKD stage III with acreatinine baseline of 1.1-1.2, fibromyalgia, polycystic ovarian syndrome, L4/5 disc bulge causing foraminal stenosis and impingement of the right L5 nerve status post L4-5 laminectomy with partial medial facetectomy and foraminotomy 04/24/2024 who presented to the ED on 02/05/2025 due to progressively worsening lower back pain after having an accident, she describes this as her stepping on a wet spot causing her to slip and immediately felt a pop in her right hip area about 3 to 4 days ago and ever since, she has been having severe low back and right-sided hip and groin pain. This is caused herto have significant debility with difficulty ambulating due to the pain. No fever night sweats or chills. She was seen by the neurosurgery office on 02/04/2025, she has been complaining to them about low back pain with radiation down her legs without numbness or tingling or weakness. They started the patient on muscle relaxers and increased her Lyrica dosing. MRI of the lumbar and thoracic spine with and without contrast was ordered and was scheduled for 02/20/2025. In the ED, patient was hemodynamically stable, afebrile saturating well on room air. Labs essentially unremarkable, ESR was slightly elevated at 22 but not very significant, glucose of 128, creatinine 1.25 slightly deranged from her baseline, magnesium of 1.4, potassium 3.9. LFTs within normal limits. Lactic acid within normal limits. CRP less than 0.5. She had a CT pelvis without contrast which did not show any acute fracture or dislocation. She had a CT spine lumbar without contrast which wasunremarkable. Moderate spinal canal stenosis at T12-L1 due to disc osteophyte complex was noted.Patient was given a dose of Valium 2 mg x 2, fentanyl, Dilaudid and despite this was still having severe pain and therefore she was transferred to [place] from [place] and admitted for further management of intractable back pain. She had clarified that she most likely slipped and she felt a pop she felt like she dislocated her right hip briefly and it went back into place, since then she has had really bad pain mostly now involving the buttock and radiating down to the hip. MRI of the cervical and lumbar spine was reviewed by neurosurgery, no acute findings, stable prior disc herniations, from their standpoint, her symptoms are not correlated with the spine, they have signed off and recommended orthopedic surgery evaluation. Orthopedic surgery valuated the patient, they feel that due to the dislocation of the hip thatoccurred briefly, this usually causes stretching/irritation of the sciatic nerve which is similar to piriformis syndrome and this can take weeks before improving, recommended physical therapy, musclerelaxers and multimodal pain management. Subjective Patient is resting at the bedside chair today, she is stating that she is not having a bowel movement, she states that she has not passed gas at all today. She is concerned that she may be developingobstruction. She does not have any nausea or vomiting or abdominal pain. She states that the pain in the right hip is only gotten better by maybe 1 or 2 points, not significant. She states that this is still bothering her. Hoping to have some relief. She has inquired about having a steroid injection as she states that this has helped her for her back before. The pain is currently now just focused on the buttock radiating down to the right hip. She states that she cannot do the steroids because she is having significant anxiety, thinks that she had a panic attack yesterday, she is also having irritation in her stomach. Objective Vitals and Measurements T: 36.5 C (Oral) TMIN: 36.3 C (Oral) TMAX: 36.8 C (Oral) HR: 90 RR: 18 BP: 110/67 SpO2: 95% Intake and Output 7AM Yesterday to 7AM Today Intake and Output (Last 24 hours) Intake Oral Intake 1440.00 Output Stool Count 0.00 Urine Count 5.00 Emesis Count 0.00 Total Summary Total Intake 1440.00 Total Output 0.00 Fluid Balance 1440.00 Physical Exam Resting at the bedside chair, no acute distress. Right hip with limited range of motion, pain with any movement and weightbearing. Otherwise no lower extremity edema, straight leg test otherwise negative except for limited range of motion at the hip. She is alert and oriented x 3, no focal neurologic deficits otherwise. Weight Dosing Weight: 120.2 kg (02/06/25) Dosing Weight: 120.2 kg (02/05/25) Medications Medications (28) Active Scheduled: (18) acetaminophen 500 mg Tablet 1,000 mg 2 tab(s), Oral, TID atorvastatin 10 mg tablet 10 mg 1 tab(s), Oral, qDay bupropion 150 mg/24 hours ER tablet 150 mg 1 tab(s), Oral, qDay cholecalciferol 125 mcg capsule (Vit D3 5000 unit(s)) 250 mcg 2 cap(s), Oral, Every other day cloNIDine 0.3 mg tablet 0.3 mg 1 tab(s), Oral, BID heparin 5,000 units/mL (1 mL) vial 5,000 unit(s) 1 mL, Subcutaneous, q8h insulin glargine 10 unit(s) 0.1 mL, Subcutaneous (INT), qAM insulin lispro 100 units/mL Soln (3 mL) Give 0-10 units/dose, Subcutaneous, TIDAC lactulose 20 g/30 mL UD cup 20 gram(s) 30 mL, Oral, Once montelukast 10 mg Tablet 10 mg 1 tab(s), Oral, qDay omeprazole [address] capsule 40 mg 1 cap(s), Oral, qDay polyethylene glycol 3350 - UD packet 17 gram(s) 15 mL, Oral, BID pregabalin 50 mg capsule 100 mg 2 cap(s), Oral, TID propranolol 40 mg tablet 40 mg 1 tab(s), Oral, qDay QUEtiapine 50 mg tablet 50 mg 1 tab(s), Oral, qHS rosuvastatin 20 mg tablet 20 mg 1 tab(s), Oral, Daily senna 8.6 mg Tablet 17.2 mg 2 tab(s), Oral, BID tiZANidine 2 mg tablet 2 mg 1 tab(s), Oral, TID Continuous: (0) PRN: (10) albuterol - ipratropium 2.5 mg-0.5 mg/3 mL Inhal Laura UD 3 mL, Inhalation, q4hRT ALPRAZOLam 0.5 mg tablet 0.5 mg 1 tab(s), Oral, BID bisacodyl 10 mg Suppository 10 mg 1 supp, Rectal, qDay dextrose 50% Solution Disp syringe 50 mL 25 gram(s) 50 mL, IV Push, AsDirected guaifenesin 100 mg/5 mL Liquid 120 mL 200 mg 10 mL, Oral, q4h melatonin 3 mg tablet 3 mg 1 tab(s), Oral, qHS morphine 2 mg/mL 1 mL syringe 1 mg 0.5 mL, IV Push, q4h ondansetron 2 mg/ 1 mL 2 mL INJ 4 mg 2 mL, IV Push, q4h oxycodone 5 mg tablet (immediate release) 5 mg 1 tab(s), Oral, q4h polyethylene glycol 3350 - UD packet 17 gram(s) 15 mL, Oral, qDay Lab Results 02/09 07:41 Glucose Level: 159 H Sodium Level: 136 Potassium Level: 4.6 BUN: 14.0 Creatinine Lvl (s): 1.01 02/08 07:21 Glucose Level: 122 H Sodium Level: 139 Potassium Level: 4.5 BUN: 8.0 Creatinine Lvl (s): 1.11 Imaging Results and Diagnostics XR Abdomen 2 Views w/ Decub/Erect Result Date: February 09, 2025 Verified By: NATE LENNON MD CLINICAL STATEMENT: IMPRESSION: No evidence of high-grade bowel obstruction. Fecal loading of the largebowel. I have personally reviewed the images of this examination and agree with theresident's findings and interpretation MRI Spine Thoracic w/ + w/o Contrast Result Date: February 07, 2025 Verified By: SHIRA CARVAJAL DO CLINICAL STATEMENT: IMPRESSION: 1. No acute abnormality or abnormal enhancement of the thoracic spine.2. Multilevel degenerative changes, most severe at T10-11 with a large rightsubarticular zone herniation with superior extrusion resulting in moderatenarrowing of the spinal canal and effacement of the right hemicord.There isminimal increased signal within the left [place] cord at this level, overallsimilar in appearance to the prior study. MRI Spine Lumbar w/ + w/o Contrast Result Date: February 07, 2025 Verified By: SHIRA CARVAJAL DO CLINICAL STATEMENT: IMPRESSION: 1. No acute abnormality, fracture, or worsening narrowing of the spinal canalor neural foramina.2. Redemonstration of changes status post L4 laminectomy for L4-5decompression.3. Decreasedpostoperative soft tissue enhancement. No significant edema. Nofluid collection.4. Stable appearance of a large left central and subarticular zone discextrusion at T12-L1 with associated moderate narrowing of the spinal canal.5. Moderate right neural foraminal stenosis at L4-5. CT Spine Lumbar w/o Contrast Result Date: February 05, 2025 Verified By: MICHELLE Orr CLINICAL STATEMENT: IMPRESSION: Unremarkable non-contrast CT of the lumbar spine. Moderate spinal canal stenosis at T12-L1 due to disc osteophyte complex. CT Pelvis w/o Contrast Result Date: February 05, 2025 Verified By: UMAIR PICHARDO MD CLINICAL STATEMENT: IMPRESSION: No acute fracture or dislocation. I have personally reviewed the images of this examination and agree with theresident's findings and interpretation. EKG No qualifying data available. Assessment/Plan Severe right hip pain likely with piriformis syndrome post brief dislocation of her right hip Acute on chronic back pain Multilevel degenerative changes, severe at T10-11 with large right subarticular zone herniation Moderate narrowing of the spinal canal and effacement of the right hemicord at T10-11 Previously known lumbar disc disease, stable with postop changes noted on imaging Hyperglycemia in the setting of known type 2 diabetes mellitus Mild nonoliguric SYED and CKD stage III with a baseline of around 1.1-1.2 Hypomagnesemia Constipation DVT prophylaxis: Subcutaneous heparin CODE STATUS: Full code Plan: Patient has been seen by neurosurgery, do not feel that the findings noted on MRI are of acute nature. Patient has been mostly complaining of right hip pain that is more localized, she thinks that she may have dislocated her hip and it went back into place that she heard a pop. With weightbearing, this is worse. Recommending orthopedic surgery evaluation. CT imaging of the pelvis was reviewed, no evidence of any osseous abnormality or obvious soft tissue abnormality noted. I wonder if this pain that she is feeling as part of a sciatic nerve neuropathyversus possible localized ligament sprain. I had reviewed the recommendations with orthopedic surgeon to the patient yesterday. She was agreeable to trial steroids, received a dose of Decadron 10 mg once, also received another dose of 4 mg this morning. She is not explaining that she is having significant anxiety that is uncontrolled despite being on medications and receiving an extra dose of Xanax. She is also having some trouble with her abdomen and therefore does not want to proceed with steroids. She had inquired about a joint injection. Had requested PT we will request PT to see the patient. 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 Continue with Tylenol as scheduled, will discontinue with the carbamoyl and transition to tizanidine scheduled for the next 24 hours to see if there is any relief. She is already on pregabalin, continue on this 100 mg 3 times a day. Limit opioids, oxycodone for breakthrough as needed. Given her CKD and history of GERD and stomach upset, unable to use NSAIDs. Patient has been having slow transit constipation: Continue the MiraLAX as ordered, senna twice a day. Will trial lactulose if patient's KUB does not show any evidence of obstruction or ileus. I discussed with the patient that we need to increase activity and work with therapy and try to ambulate the best that she can. She expressed understanding of this. Will provide Dulcolax suppository as needed if above does not work. May also need to consider an enema at some point. DVT prophylaxis with subcutaneous heparin. Replete magnesium to maintain a level of 2. Hold Mounjaro, metformin. Continue sliding scale insulin and Lantus as ordered. Resume home medications as deemed appropriate. Given that the patient has a mild derangement in kidney function, would hold her home spironolactone. Resume other antihypertensive medications. This is a note transcribed by me, the attending physician on service using the '[employer]' dictation software. Please excuse any grammatical errors, repetitions/duplications if any are present in the entirety of this note. Thank you. Anticipated Date of Discharge Level of Care Indication Regular Floor DVT Prophylaxis Heparin SQ Maintenance IVF Indication NA / No maintenance IVF Indwelling Urinary Catheter Indication NA No indwelling catheter Anticipated Timeline of Discharge 24 hours Anticipated DC Disposition Pending Therapy Evaluation Digitally Signed by SINAI JEAN MD on 02/09/2025 04:29 PM [id number] Note Date of Service 02/09/2025 Chief Complaint This is a 49-year-old female with a known history of type 2 diabetes mellitus, hypertension, upper lipidemia, GERD, peripheral neuropathy, anxiety/depression, migraine headaches, CKD stage III with acreatinine baseline of 1.1-1.2, fibromyalgia, polycystic ovarian syndrome, L4/5 disc bulge causing foraminal stenosis and impingement of the right L5 nerve status post L4-5 laminectomy with partial medial facetectomy and foraminotomy 04/24/2024 who presented to the ED on 02/05/2025 due to progressively worsening lower back pain after having an accident, she describes this as her stepping on a wet spot causing her to slip and immediately felt a pop in her right hip area about 3 to 4 days ago and ever since, she has been having severe low back and right-sided hip and groin pain. This is caused herto have significant debility with difficulty ambulating due to the pain. No fever night sweats or chills. She was seen by the neurosurgery office on 02/04/2025, she has been complaining to them about low back pain with radiation down her legs without numbness or tingling or weakness. They started the patient on muscle relaxers and increased her Lyrica dosing. MRI of the lumbar and thoracic spine with and without contrast was ordered and was scheduled for 02/20/2025. In the ED, patient was hemodynamically stable, afebrile saturating well on room air. Labs essentially unremarkable, ESR was slightly elevated at 22 but not very significant, glucose of 128, creatinine 1.25 slightly deranged from her baseline, magnesium of 1.4, potassium 3.9. LFTs within normal limits. Lactic acid within normal limits. CRP less than 0.5. She had a CT pelvis without contrast which did not show any acute fracture or dislocation. She had a CT spine lumbar without contrast which wasunremarkable. Moderate spinal canal stenosis at T12-L1 due to disc osteophyte complex was noted.Patient was given a dose of Valium 2 mg x 2, fentanyl, Dilaudid and despite this was still having severe pain and therefore she was transferred to [place] from [place] and admitted for further management of intractable back pain. She had clarified that she most likely slipped and she felt a pop she felt like she dislocated her right hip briefly and it went back into place, since then she has had really bad pain mostly now involving the buttock and radiating down to the hip. MRI of the cervical and lumbar spine was reviewed by neurosurgery, no acute findings, stable prior disc herniations, from their standpoint, her symptoms are not correlated with the spine, they have signed off and recommended orthopedic surgery evaluation. Orthopedic surgery valuated the patient, they feel that due to the dislocation of the hip thatoccurred briefly, this usually causes stretching/irritation of the sciatic nerve which is similar to piriformis syndrome and this can take weeks before improving, recommended physical therapy, musclerelaxers and multimodal pain management. Subjective Patient is resting at the bedside chair today, she is stating that she is not having a bowel movement, she states that she has not passed gas at all today. She is concerned that she may be developingobstruction. She does not have any nausea or vomiting or abdominal pain. She states that the pain in the right hip is only gotten better by maybe 1 or 2 points, not significant. She states that this is still bothering her. Hoping to have some relief. She has inquired about having a steroid injection as she states that this has helped her for her back before. The pain is currently now just focusedon the buttock radiating down to the right hip. She states that she cannot do the steroids because she is having significant anxiety, thinks that she had a panic attack yesterday, she is also having irritation in her stomach. Objective Vitals and Measurements T: 36.5 C (Oral) TMIN: 36.3 C (Oral) TMAX: 36.8 C (Oral) HR: 90 RR: 18 BP: 110/67 SpO2: 95% Intake and Output 7AM Yesterday to 7AM Today Intake and Output (Last 24 hours) Intake Oral Intake 1440.00 Output Stool Count 0.00 Urine Count 5.00 Emesis Count 0.00 Total Summary Total Intake 1440.00 Total Output 0.00 Fluid Balance 1440.00 Physical Exam Resting at the bedside chair, no acute distress. Right hip with limited range of motion, pain with any movement and weightbearing. Otherwise no lower extremity edema, straight leg test otherwise negative except for limited range of motion at the hip. She is alert and oriented x 3, no focal neurologic deficits otherwise. Weight Dosing Weight: 120.2 kg (02/06/25) Dosing Weight: 120.2 kg (02/05/25) Medications Medications (28) Active Scheduled: (18) acetaminophen 500 mg Tablet 1,000 mg 2 tab(s), Oral, TID atorvastatin 10 mg tablet 10 mg 1 tab(s), Oral, qDay bupropion 150 mg/24 hours ER tablet 150 mg 1 tab(s), Oral, qDay cholecalciferol 125 mcg capsule (Vit D3 5000 unit(s)) 250 mcg 2 cap(s), Oral, Every other day cloNIDine 0.3 mg tablet 0.3 mg 1 tab(s), Oral, BID heparin 5,000 units/mL (1 mL) vial 5,000 unit(s) 1 mL, Subcutaneous, q8h insulin glargine 10 unit(s) 0.1 mL, Subcutaneous (INT), qAM insulin lispro 100 units/mL Soln (3 mL) Give 0-10 units/dose, Subcutaneous, TIDAC lactulose 20 g/30 mL UD cup 20 gram(s) 30 mL, Oral, Once montelukast 10 mg Tablet 10 mg 1 tab(s), Oral, qDay omeprazole [address] capsule 40 mg 1 cap(s), Oral, qDay polyethylene glycol 3350 - UD packet 17 gram(s) 15 mL, Oral, BID pregabalin 50 mg capsule 100 mg 2 cap(s), Oral, TID propranolol 40 mg tablet 40 mg 1 tab(s), Oral, qDay QUEtiapine 50 mg tablet 50 mg 1 tab(s), Oral, qHS rosuvastatin 20 mg tablet 20 mg 1 tab(s), Oral, Daily senna 8.6 mg Tablet 17.2 mg 2 tab(s), Oral, BID tiZANidine 2 mg tablet 2 mg 1 tab(s), Oral, TID Continuous: (0) PRN: (10) albuterol - ipratropium 2.5 mg-0.5 mg/3 mL Inhal Laura UD 3 mL, Inhalation, q4hRT ALPRAZOLam 0.5 mg tablet 0.5 mg 1 tab(s), Oral, BID bisacodyl 10 mg Suppository 10 mg 1 supp, Rectal, qDay dextrose 50% Solution Disp syringe 50 mL 25 gram(s) 50 mL, IV Push, AsDirected guaifenesin 100 mg/5 mL Liquid 120 mL 200 mg 10 mL, Oral, q4h melatonin 3 mg tablet 3 mg 1 tab(s), Oral, qHS morphine 2 mg/mL 1 mL syringe 1 mg 0.5 mL, IV Push, q4h ondansetron 2 mg/ 1 mL 2 mL INJ 4 mg 2 mL, IV Push, q4h oxycodone 5 mg tablet (immediate release) 5 mg 1 tab(s), Oral, q4h polyethylene glycol 3350 - UD packet 17 gram(s) 15 mL, Oral, qDay Lab Results 02/09 07:41 Glucose Level: 159 H Sodium Level: 136 Potassium Level: 4.6 BUN: 14.0 Creatinine Lvl (s): 1.01 02/08 07:21 Glucose Level: 122 H Sodium Level: 139 Potassium Level: 4.5 BUN: 8.0 Creatinine Lvl (s): 1.11 Imaging Results and Diagnostics XR Abdomen 2 Views w/ Decub/Erect Result Date: February 09, 2025 Verified By: NATE LENNON MD CLINICAL STATEMENT: IMPRESSION: No evidence of high-grade bowel obstruction. Fecal loading of the largebowel. I have personally reviewed the images of this examination and agree with theresident's findings and interpretation MRI Spine Thoracic w/ + w/o Contrast Result Date: February 07, 2025 Verified By: SHIRA CARVAJAL DO CLINICAL STATEMENT: IMPRESSION: 1. No acute abnormality or abnormal enhancement of the thoracic spine.2. Multilevel degenerative changes, most severe at T10-11 with a large rightsubarticular zone herniation with superior extrusion resulting in moderatenarrowing of the spinal canal and effacement of the right hemicord.There isminimal increased signal within the left ch[place] cord at this level, overallsimilar in appearance to the prior study. MRI Spine Lumbar w/ + w/o Contrast Result Date: February 07, 2025 Verified By: SHIRA CARVAJAL DO CLINICAL STATEMENT: IMPRESSION: 1. No acute abnormality, fracture, or worsening narrowing of the spinal canalor neural foramina.2. Redemonstration of changes status post L4 laminectomy for L4-5decompression.3. Decreasedpostoperative soft tissue enhancement. No significant edema. Nofluid collection.4. Stable appearance of a large left central and subarticular zone discextrusion at T12-L1 with associated moderate narrowing of the spinal canal.5. Moderate right neural foraminal stenosis at L4-5. CT Spine Lumbar w/o Contrast Result Date: February 05, 2025 Verified By: Contributor_systemMICHELLE CLINICAL STATEMENT: IMPRESSION: Unremarkable non-contrast CT of the lumbar spine. Moderate spinal canal stenosis at T12-L1 due to disc osteophyte complex. CT Pelvis w/o Contrast Result Date: February 05, 2025 Verified By: UMAIR PICHARDO MD CLINICAL STATEMENT: IMPRESSION: No acute fracture or dislocation. I have personally reviewed the images of this examination and agree with theresident's findings and interpretation. EKG No qualifying data available. Assessment/Plan Severe right hip pain likely with piriformis syndrome post brief dislocation of her right hip Acute on chronic back pain Multilevel degenerative changes, severe at T10-11 with large right subarticular zone herniation Moderate narrowing of the spinal canal and effacement of the right hemicord at T10-11 Previously known lumbar disc disease, stable with postop changes noted on imaging Hyperglycemia in the setting of known type 2 diabetes mellitus Mild nonoliguric SYED and CKD stage III with a baseline of around 1.1-1.2 Hypomagnesemia Constipation DVT prophylaxis: Subcutaneous heparin CODE STATUS: Full code Plan: Patient has been seen by neurosurgery, do not feel that the findings noted on MRI are of acute nature. Patient has been mostly complaining of right hip pain that is more localized, she thinks that she may have dislocated her hip and it went back into place that she heard a pop. With weightbearing,this is worse. Recommending orthopedic surgery evaluation. CT imaging of the pelvis was reviewed, no evidence of any osseous abnormality or obvious soft tissue abnormality noted. I wonder if this pain that she is feeling as part of a sciatic nerve neuropathyversus possible localized ligament sprain. I had reviewed the recommendations with orthopedic surgeon to the patient yesterday. She was agreeable to trial steroids, received a dose of Decadron 10 mg once, also received another dose of 4 mg this morning. She is not explaining that she is having significant anxiety that is uncontrolled despite being on medications and receiving an extra dose of Xanax. She is also having some trouble with her abdomen and therefore does not want to proceed with steroids. She had inquired about a joint injection. Had requested PT we will request PT to see the patient. 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 Continue with Tylenol as scheduled, will discontinue with the carbamoyl and transition to tizanidine scheduled for the next 24 hours to see if there is any relief. She is already on pregabalin, continue on this 100 mg 3 times a day. Limit opioids, oxycodone for breakthrough as needed. Given her CKD and history of GERD and stomach upset, unable to use NSAIDs. Patient has been having slow transit constipation: Continue the MiraLAX as ordered, senna twice a day. Will trial lactulose if patient's KUB does not show any evidence of obstruction or ileus. I discussed with the patient that we need to increase activity and work with therapy and try to ambulate the best that she can. She expressed understanding of this. Will provide Dulcolax suppository as needed if above does not work. May also need to consider an enema at some point. DVT prophylaxis with subcutaneous heparin. Replete magnesium to maintain a level of 2. Hold Mounjaro, metformin. Continue sliding scale insulin and Lantus as ordered. Resume home medications as deemed appropriate. Given that the patient has a mild derangement in kidney function, would hold her home spironolactone. Resume other antihypertensive medications. This is a note transcribed by me, the attending physician on service using the '[employer]' dictation software. Please excuse any grammatical errors, repetitions/duplications if any are present in the entirety of this note. Thank you. Anticipated Date of Discharge Level of Care Indication Regular Floor DVT Prophylaxis Heparin SQ Maintenance IVF Indication NA / No maintenance IVF Indwelling Urinary Catheter Indication NA No indwelling catheter Anticipated Timeline of Discharge 24 hours Anticipated DC Disposition Pending Therapy Evaluation Digitally Signed by SINAI JEAN MD on 02/09/2025 04:29 PM [id number] Note* Exam Date Time Procedure Performing Provider Status 02/09/25 1:23 PM XR Abdomen 2 Views w/ Decub/Erect NATE PAGAN MD; Auth (Verified) [id number] ORIGINAL EXAMINATION: TWO XRAY VIEWS OF THE ABDOMEN02/09/2025 1:23 pm supine and upright two views COMPARISON: CT abdomen pelvis 01/27/2020 HISTORY: ORDERING SYSTEM PROVIDED HISTORY: Reason for Exam: Abdominal pain, rule out obstruction, evaluate for constipation FINDINGS: There is a nonobstructive bowel gas pattern. No dilated small bowel loops. Moderate to large amount of stool seen in the colon. No free air or abnormal fluid levels. There are no acute osseous abnormalities. No calculi over the renal shadows, expected course of bilateral ureters, or urinary bladder. Included lung bases are clear. IMPRESSION: No evidence of high-grade bowel obstruction. Fecal loading of the large bowel. I have personally reviewed the images of this examination and agree with the resident's findings and interpretation Interpreted by: Nate Lennon MD Preliminary Report By: Krista Bishop MD Electronically signed By Nate Lennon MD Dictated Date: 02/09/2025 1:27:42 PM Prelim Date: 02/09/2025 1:47:08 PM Sign Date: 02/09/2025 1:47:08 PM Ordering Provider: SINAI JEAN [id number] Note Date of Service 02/08/2025 Subjective That kind of radiates to the patient stated that she try to walk to the restroom today and she started noticing more pain in her right hip with weightbearing. She states that this has been more bothersome today than before. She does not think that she had any significant improvement since coming [facility]. Objective Vitals and Measurements T: 36.5 C (Oral) TMIN: 36.5 C (Oral) TMAX: 36.8 C (Oral) HR: 70 RR: 18 BP: 108/66 SpO2: 94% Intake and Output 7AM Yesterday to 7AM Today Intake and Output (Last 24 hours) Intake Oral Intake 480.00 Output Stool Count 0.00 Total Summary Total Intake 480.00 Total Output 0.00 Fluid Balance 480.00 Physical Exam Resting in bed, no acute distress. Limited range of motion of the right hip. Straight leg test doesnot cause any shooting pain down the leg but does have localized pain in the hip region that she states is radiating to the back. Weight Dosing Weight: 120.2 kg (02/06/25) Dosing Weight: 120.2 kg (02/05/25) Medications Medications (27) Active Scheduled: (18) acetaminophen 500 mg Tablet 1,000 mg 2 tab(s), Oral, TID atorvastatin 10 mg tablet 10 mg 1 tab(s), Oral, qDay bisacodyl 10 mg Suppository 10 mg 1 supp, Rectal, Once bupropion 150 mg/24 hours ER tablet 150 mg 1 tab(s), Oral, qDay cholecalciferol 125 mcg capsule (Vit D3 5000 unit(s)) 250 mcg 2 cap(s), Oral, Every other day cloNIDine 0.3 mg tablet 0.3 mg 1 tab(s), Oral, BID dexamethasone 10 mg/mL (1mL) SDV 10 mg 1 mL, IV Push, Once insulin glargine 10 unit(s) 0.1 mL, Subcutaneous (INT), qAM insulin lispro 100 units/mL Soln (3 mL) Give 0-10 units/dose, Subcutaneous, TIDAC methocarbamol 500 mg Tablet 500 mg 1 tab(s), Oral, QID montelukast 10 mg Tablet 10 mg 1 tab(s), Oral, qDay omeprazole [address] capsule 40 mg 1 cap(s), Oral, qDay polyethylene glycol 3350 - UD packet 17 gram(s) 15 mL, Oral, BID pregabalin 50 mg capsule 100 mg 2 cap(s), Oral, TID propranolol 40 mg tablet 40 mg 1 tab(s), Oral, qDay QUEtiapine 50 mg tablet 50 mg 1 tab(s), Oral, qHS rosuvastatin 20 mg tablet 20 mg 1 tab(s), Oral, Daily senna 8.6 mg Tablet 17.2 mg 2 tab(s), Oral, BID Continuous: (0) PRN: (9) albuterol - ipratropium 2.5 mg-0.5 mg/3 mL Inhal Laura UD 3 mL, Inhalation, q4hRT ALPRAZOLam 0.5 mg tablet 0.5 mg 1 tab(s), Oral, BID dextrose 50% Solution Disp syringe 50 mL 25 gram(s) 50 mL, IV Push, AsDirected guaifenesin 100 mg/5 mL Liquid 120 mL 200 mg 10 mL, Oral, q4h melatonin 3 mg tablet 3 mg 1 tab(s), Oral, qHS morphine 2 mg/mL 1 mL syringe 1 mg 0.5 mL, IV Push, q4h ondansetron 2 mg/ 1 mL 2 mL INJ 4 mg 2 mL, IV Push, q4h oxycodone 5 mg tablet (immediate release) 5 mg 1 tab(s), Oral, q4h polyethylene glycol 3350 - UD packet 17 gram(s) 15 mL, Oral, qDay Lab Results 02/08 07:21 Glucose Level: 122 H Sodium Level: 139 Potassium Level: 4.5 BUN: 8.0 Creatinine Lvl (s): 1.11 02/07 07:29 Glucose Level: 129 H Sodium Level: 140 Potassium Level: 4.1 BUN: 12.0 Creatinine Lvl (s): 1.17 Imaging Results and Diagnostics MRI Spine Thoracic w/ + w/o Contrast Result Date: February 07, 2025 Verified By: SHIRA CARVAJAL DO CLINICAL STATEMENT: IMPRESSION: 1. No acute abnormality or abnormal enhancement of the thoracic spine.2. Multilevel degenerative changes, most severe at T10-11 with a large rightsubarticular zone herniation with superior extrusion resulting in moderatenarrowing of the spinal canal and effacement of the right hemicord.There isminimal increased signal within the left [place] cord at this level, overallsimilar in appearance to the prior study. MRI Spine Lumbar w/ + w/o Contrast Result Date: February 07, 2025 Verified By: SHIRA CARVAJAL DO CLINICAL STATEMENT: IMPRESSION: 1. No acute abnormality, fracture, or worsening narrowing of the spinal canalor neural foramina.2. Redemonstration of changes status post L4 laminectomy for L4-5decompression.3. Decreasedpostoperative soft tissue enhancement. No significant edema. Nofluid collection.4. Stable appearance of a large left central and subarticular zone discextrusion at T12-L1 with associated moderate narrowing of the spinal canal.5. Moderate right neural foraminal stenosis at L4-5. CT Spine Lumbar w/o Contrast Result Date: February 05, 2025 Verified By: Contributor_MICHELLE gunter CLINICAL STATEMENT: IMPRESSION: Unremarkable non-contrast CT of the lumbar spine. Moderate spinal canal stenosis at T12-L1 due to disc osteophyte complex. CT Pelvis w/o Contrast Result Date: February 05, 2025 Verified By: UMAIR PICHARDO MD CLINICAL STATEMENT: IMPRESSION: No acute fracture or dislocation. I have personally reviewed the images of this examination and agree with theresident's findings and interpretation. EKG No qualifying data available. Assessment/Plan Severe right hip pain Acute on chronic back pain Multilevel degenerative changes, severe at T10-11 with large right subarticular zone herniation Moderate narrowing of the spinal canal and effacement of the right hemicord at T10-11 Previously known lumbar disc disease, stable with postop changes noted on imaging Hyperglycemia in the setting of known type 2 diabetes mellitus Mild nonoliguric SYED and CKD stage III with a baseline of around 1.1-1.2 Hypomagnesemia Constipation DVT prophylaxis: Subcutaneous heparin CODE STATUS: Full code Plan: Patient has been seen by neurosurgery, do not feel that the findings noted on MRI are of acute nature. Patient has been mostly complaining of right hip pain that is more localized, she thinks that she may have dislocated her hip and it went back into place that she heard a pop. With weightbearing, this is worse. Recommending orthopedic surgery evaluation. CT imaging of the pelvis was reviewed, no evidence of any osseous abnormality or obvious soft tissue abnormality noted. I wonder if this pain that she is feeling as part of a sciatic nerve neuropathyversus possible localized ligament sprain. Await input from orthopedic surgery. Will trial dose of Decadron x 1 today, may be consider a Medrol Dosepak on discharge. Will have PT evaluate the patient and plan for PT in outpatient setting as well. Continue with methocarbamol, continue with Tylenol scheduled. Limit opioids if possible, available as needed. Patient has been having constipation related to opioid use. Continue with senna twice a day, add MiraLAX twice a day, Dulcolax suppository x 1. If still no bowel movement, will consider enema. DVT prophylaxis with subcutaneous heparin. Replete magnesium to maintain a level of 2. Hold Mounjaro, metformin. Continue sliding scale insulin here, will schedule long-acting insulin aswell based on her body weight. Resume home medications as deemed appropriate. Given that the patient has a mild derangement in kidney function, would hold her home spironolactone. Resume other antihypertensive medications. This is a note transcribed by me, the attending physician on service using the '[employer]' dictation software. Please excuse any grammatical errors, repetitions/duplications if any are present in the entirety of this note. Thank you. Anticipated Date of Discharge Level of Care Indication Regular Floor DVT Prophylaxis Heparin SQ Maintenance IVF Indication NA / No maintenance IVF Indwelling Urinary Catheter Indication NA No indwelling catheter Anticipated Timeline of Discharge 48 hours Anticipated DC Disposition Home c [facility] Digitally Signed by SINAI JEAN MD on 02/08/2025 02:28 PM [id number] Orthopaedic surgery Consult note Date of Service 02/08/[address] Jean History of Present Illness April is a 49 y.o. female with chronic back pain followed by Dr. Olmstead. She had a fall 4 days agothinking she dislocated and relocated R hip. Since she has had R hip pain. Orthopedic surgery was consulted for evaluation and management. Pt evaluated at bedside resting comfortably in bed in no acute distress. She states that she had a mechanical fall 4 days ago and felt a pop in her right hip and then subsequently felt another pop inher right hip. She states she was able to ambulate after this episode. She states she has had pain to her right buttocks that radiates down her right lower extremity. Patient notes that this pain is chronic but the fall has flared this pain. She endorses intermittent numbness and tingling down right lower extremity but currently denies any numbness, tingling, weakness to her right lower extremity. Patient provides that she is seeing neurosurgery Dr. Olmstead for back pain and has received lumbar injections. She states that she would like a injection in her right buttocks. She notes that she cannottake NSAIDs. She states that she has tried muscle relaxers in the past with no relief of pain. Review of Systems ROS negative unless otherwise stated by HPI Physical Exam Vitals and Measurements T: 36.5 C (Oral) TMIN: 36.5 C (Oral) TMAX: 36.8 C (Oral) HR: 70 RR: 18 BP: 108/66 SpO2: 94% Weight Dosing Weight: 120.2 kg (02/06/25) Dosing Weight: 120.2 kg (02/05/25) Right Lower Extremity -There is no obvious deformity to right lower extremity. -Skin is intact. There is no warmth, erythema, swelling, or ecchymosis to right hip. -When asked to point to where the pain is patient points to the middle of her right buttocks. Thereis tenderness to palpation to the piriformis muscle. There is no pain with passive range of motion of right hip. Patient has full passive flexion, extension, internal, external rotation, abduction, and adduction of right hip. -Straight leg raise is positive on the right at 40 degrees of hip flexion. Strength 3 out of 5 to right lower extremity. EVA test is positive. -Knee flexion/extension, ankle plantarflexion/dorsiflexion, EHL FHL intact. -DP and PT pulse 2+ - Sensation grossly intact L2-S2 - Calf soft and non-tender Lab Results 02/08 07:21 Glucose Level: 122 H Sodium Level: 139 Potassium Level: 4.5 BUN: 8.0 Creatinine Lvl (s): 1.11 02/07 07:29 Glucose Level: 129 H Sodium Level: 140 Potassium Level: 4.1 BUN: 12.0 Creatinine Lvl (s): 1.17 Imaging Results and Diagnostics Imaging personally reviewed and interpreted. XR pelvis demonstrate no acute fracture or dislocation. CT pelvis demonstrates no acute fracture or dislocation. Assessment/Plan 1. Right buttock pain 2. Piriformis syndrome of right side 41-year-old female with acute on chronic right buttocks pain. Imaging reviewed and demonstrate no acute fracture or dislocation. Physical examination most consistent with piriformis syndrome with thereproduction of sciatica-like symptoms and tender point. Patient is requesting injection to this area however would recommend conservative management at this time. -No plan for acute orthopedic surgical intervention -Multimodal pain control: Tylenol, tizanidine, Medrol Dosepak, gabapentin. -Recommend PT for mobilization and stretching -Orthopedic surgery to sign off -Discussed with Dr. Landers Problem List/Past Medical History Ongoing Anxiety Asthma Celiac disease CKD (chronic kidney disease), stage III Claustrophobia Cough Depression, major, recurrent, moderate Diabetes mellitus, type II (Brandy) Encounter for surgical aftercare following surgery of sense organs Environmental allergies Eosinophil adenoma Essential hypertension Fatigue Fibromyalgia Foot drop Foot drop, right Gastrointestinal distress Glasses High triglycerides Hirsutism Hypercholesterolemia Left-sided weakness Metabolic syndrome Migraine Morbid obesity Nausea & vomiting Neurologic disorder Orthostatic hypotension Paresthesia PCOS (polycystic ovarian syndrome) Personality disorder Sleep apnea Spasm Vitamin D deficiency Weakness Historical Diverticulitis Fall Migraine Myocardial infarction Suicidal behavior Procedure/Surgical History Right L4-L5 laminectomy with partial medial facetectomy and foraminotomy: 04/24/24 EGD (esophagogastroduodenoscopic) electrohydraulic lithotripsy of bezoar in stomach: 01/25/24 Colonoscopy: 01/25/24 Bowel: 2015 Fall: 02/25/16 History of vaginal hysterectomy: 05/2012 Stress testing using pharmacologic-induced stress Medications Inpatient acetaminophen, 1000 mg= 2 tab(s), Oral, TID ALPRAZolam, 0.5 mg= 1 tab(s), Oral, BID, PRN atorvastatin, 10 mg= 1 tab(s), Oral, qDay buPROPion 150 mg/24 hours (XL) oral tablet, extended release, 150 mg= 1 tab(s), Oral, qDay cloNIDine, 0.3 mg= 1 tab(s), Oral, BID Dextrose 50% IV Push, 25 gram(s)= 50 mL, IV Push, AsDirected, PRN DuoNeb, 3 mL, Inhalation, q4hRT, PRN guaiFENesin, 200 mg= 10 mL, Oral, q4h, PRN HumaLOG 100 units/mL subcutaneous solution, Give 0-10 units/dose, Subcutaneous, TIDAC Lantus, 10 unit(s)= 0.1 mL, Subcutaneous (INT), qAM melatonin, 3 mg= 1 tab(s), Oral, qHS, PRN methocarbamol, 500 mg= 1 tab(s), Oral, QID Miralax Powder Packet, 17 gram(s)= 15 mL, Oral, qDay, PRN morphine, 1 mg= 0.5 mL, IV Push, q4h, PRN omeprazole, 40 mg= 1 cap(s), Oral, qDay oxyCODONE 5 mg oral tablet ( IMMEDIATE release ), 5 mg= 1 tab(s), Oral, q4h, PRN pregabalin 100 mg oral capsule, 100 mg= 2 cap(s), Oral, TID propranolol, 40 mg= 1 tab(s), Oral, qDay QUEtiapine, 50 mg= 1 tab(s), Oral, qHS rosuvastatin, 20 mg= 1 tab(s), Oral, Daily Senokot, 17.2 mg= 2 tab(s), Oral, BID Singulair, 10 mg= 1 tab(s), Oral, qDay Vitamin D3 125 mcg (5000 intl units) oral capsule, 250 mcg= 2 cap(s), Oral, Every other day Zofran, 4 mg= 2 mL, IV Push, q4h, PRN Home acetaminophen 500 mg oral tablet, 1000 mg= 2 tab(s), Oral, TID ALPRAZolam 0.5 mg oral tablet, See Instructions, PRN, 2 refills aspirin 81 mg oral delayed release tablet, 81 mg= 1 tab(s), Oral, Daily atorvastatin 10 mg oral tablet, 10 mg= 1 tab(s), Oral, qDay, 11 refills buPROPion 150 mg/24 hours (XL) oral tablet, extended release, See Instructions, 1 refills cetirizine 10 mg oral capsule, 10 mg= 1 cap(s), Oral, qDay cloNIDine 0.3 mg oral tablet, 0.3 mg= 1 tab(s), Oral, BID, 5 refills levalbuterol tartrate HFA 45mcg/inh inhaler, 1 puff(s), Inhalation, q6hr, PRN, 1 refills MetFORMIN (Eqv-Glucophage XR) 500 mg oral tablet, EXTENDED RELEASE, 1500 mg= 3 tab(s), Oral, qDay, 1 refills methocarbamol 500 mg oral tablet, 500 mg= 1 tab(s), Oral, QID Mounjaro 10 mg/0.5 mL subcutaneous solution, 10 mg, Subcutaneous, qWeek, 1 refills omeprazole 40 mg oral delayed release capsule, 40 mg= 1 cap(s), Oral, qDay ondansetron 4 mg oral tablet, disintegrating, 4 mg= 1 tab(s), Oral, TID, PRN oxyCODONE 5 mg oral tablet ( IMMEDIATE release ), 5 mg= 1 tab(s), Oral, q4h, PRN pregabalin 100 mg oral capsule, 100 mg= 1 cap(s), Oral, TID propranolol 40 mg oral tablet, 40 mg= 1 tab(s), Oral, qDay, 3 refills QUEtiapine 50 mg oral tablet, See Instructions, 1 refills rosuvastatin 20 mg oral tablet, 20 mg= 1 tab(s), Oral, Daily, 1 refills Senna, See Instructions Singulair 10 mg oral tablet, 10 mg= 1 tab(s), Oral, qDay, 3 refills spironolactone 50 mg oral tablet, 50 mg= 1 tab(s), Oral, qDay, 1 refills Vitamin D3 250 mcg (10,000 intl units) oral capsule, 250 mcg= 1 cap(s), Oral, Every other day Xopenex 0.63 mg/3 mL inhalation solution, 0.63 mg= 3 mL, Nebulized, TID, PRN, 3 refills Allergies Imitrex(Severe) Hypotension Pork(Severe) anaphylaxis amLODIPine (Mild) lip swelling Actos blurred vision Compazine Anxiety Diflucan Lip swelling Maxalt Hypotension Norflex Anxiety Reglan lisinopril angioedema Social History Smoking Status - 08/28/2018 Never [...] attack: Father. Meniere's disease 11-AUG-2014 16:50:41<$>: Brother. Health Status Family Member(s) Immunizations pneumococcal 23-valent vaccine(Pneumovax: 0.5 mL (03/07/24) SARS-CoV-2 mRNA (tozinameran) vaccine: 0 unknown unit (09/12/22) SARS-CoV-2 mRNA (tozinameran) vaccine: 0.3 unknown unit (02/25/21) SARS-CoV-2 mRNA (tozinameran) vaccine: 0.3 unknown unit (01/28/21) tetanus-diphtheria toxoids: 0 unknown unit (10/01/13) Digitally Signed by GUSTABO GARCIA DO on 02/08/2025 03:24 PM Digitally Signed by GUSTABO GARCIA DO on 02/08/2025 03:24 PM Digitally Signed by LIAM ORTIZ MD on 02/09/2025 05:41 PM [id number] Neurological surgery Progress note Date of Service 02/08/2025 Split/Shared visit with Dr. Gotti Subjective Neurosurgery CC: Acute on chronic back pain Patient is a 49 year old female who is well known to the [place] [facility]. Patient previously underwent right L4-L5 laminectomy with partial medial facetectomy and foraminotomy with Dr. Olmstead on 04/24/2024. Postoperatively, the patient had initially noted improvement in her RLE pain, paresthesias, and weakness however her symptoms returned. Patient was ordered outpatient physical therapy/aquatic therapy and [facility]. Patient had postoperative MRI testing completed; Dr. Olmstead noted no lumbar pathology on MRI imaging to explain her worsening LLE weakness. Additionally had MRIs of the brain, cervical and thoracic spine ordered by PCP due to concern for possible MS; spinal MRIs did not show evidence of demyelination. Thoracic MRI with findings of a large right herniated disc at T9-T10 and large central herniated disc at T11-T12. Brain MRI resulted with minimal nonspecific white matter disease. Patient was also ordered an EMG/NCV of her bilateral lower extremities. 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 It also noted electromyographic changes involving the left leg consistent with a left L5 radiculopathy although a partial axonal type peroneal mononeuropathy without associated sensory changes cannot be entirely excluded. Patient was referred to orthopedics to further evaluation/treatment of her peroneal nerve. Patient was found to have thiamine and B12 deficiencies and has been receiving B1and B12 injections on an outpatient basis; this is what improved her bilateral lower extremity weakness and paresthesias. Patient was recently seen in the [place] [facility] office on 02/04/2025 with complaints of mid tolow back pain radiating into her bilateral hips. Patient denied any shooting pain down her legs, acute onset paresthesias, weakness, saddle anesthesia, or loss of bowel or bladder function. Patient'sLyrica dosing was increased from 50mg TID to 100mg TID and was switched from Tizanidine to Robaxin.Patient was also ordered an MRI thoracic and lumbar spine with and without contrast; scheduled for 02/20/2025. Unfortunately, the patient slipped on a wet surface and felt a pop in her right hip. Patient immediately developed severe pain radiating into her groin. Patient also had a difficult time bearing weight on her RLE therefore she went to the [facility] ED on 02/05/2025 for further evaluation. Patient had a CT pelvis without contrast performed which demonstrated no acute fracture or dislocation. A CT lumbar spine without contrast was also performed which demonstrated moderate spinal canal stenosis T12-L1 due to disc osteophyte complex. Patient received Valium and Dilaudid in the ED without improvement of her symptoms. Due to this, patient was admitted to [facility] under the hospitalist service for further workup. Neurosurgery consultation was requested. MRI thoracic and lumbar spine with and without contrast were completed on 02/07/2025. These studies have been reviewed by Dr. Gotti. It demonstrates her known disc herniations within the thoracic and lumbar spine which appear stable/unchanged compared to her last MRIs completed in June 2024. Patient was seen and examined at bedside this morning. Patient is seen resting in bed, no acute distress noted. Patient is awake, alert, and oriented x4. She follows simple commands appropriately. Speech is clear and fluent. Patient moves all 4 extremities spontaneously on exam. Patient has 5/5 strength throughout her LLE. Patient has normal dorsiflexion and plantar flexion bilaterally on exam. Patient does have 4+/5 strength in her RLE with knee flexion/extension; patient states this exacerbates her pain.Patient also notes exacerbation of her pain with hip ROM and palpation of the right hip joint. Normal light touch sensation throughout. Patient notes most of her severe pain is within the right hip; she states it feels like my hip popped out of it's socket. Patient denies any saddle anesthesia or loss of bowel or bladder control. Objective Vitals and Measurements T: 36.5 C (Oral) TMIN: 36.5 C (Oral) TMAX: 36.8 C (Oral) HR: 70 RR: 18 BP: 108/66 SpO2: 94% Intake and Output 7AM Yesterday to 7AM Today Intake and Output (Last 24 hours) Intake Oral Intake 300.00 Output Stool Count 0.00 Total Summary Total Intake 300.00 Total Output 0.00 Fluid Balance 300.00 Physical Exam Weight Dosing Weight: 120.2 kg (02/06/25) Dosing Weight: 120.2 kg (02/05/25) Medications Medications (24) Active Scheduled: (15) acetaminophen 500 mg Tablet 1,000 mg 2 tab(s), Oral, TID atorvastatin 10 mg tablet 10 mg 1 tab(s), Oral, qDay bupropion 150 mg/24 hours ER tablet 150 mg 1 tab(s), Oral, qDay cholecalciferol 125 mcg capsule (Vit D3 5000 unit(s)) 250 mcg 2 cap(s), Oral, Every other day cloNIDine 0.3 mg tablet 0.3 mg 1 tab(s), Oral, BID insulin glargine 10 unit(s) 0.1 mL, Subcutaneous (INT), qAM insulin lispro 100 units/mL Soln (3 mL) Give 0-10 units/dose, Subcutaneous, TIDAC methocarbamol 500 mg Tablet 500 mg 1 tab(s), Oral, QID montelukast 10 mg Tablet 10 mg 1 tab(s), Oral, qDay omeprazole [address] capsule 40 mg 1 cap(s), Oral, qDay pregabalin 50 mg capsule 100 mg 2 cap(s), Oral, TID propranolol 40 mg tablet 40 mg 1 tab(s), Oral, qDay QUEtiapine 50 mg tablet 50 mg 1 tab(s), Oral, qHS rosuvastatin 20 mg tablet 20 mg 1 tab(s), Oral, Daily senna 8.6 mg Tablet 17.2 mg 2 tab(s), Oral, BID Continuous: (0) PRN: (9) albuterol - ipratropium 2.5 mg-0.5 mg/3 mL Inhal Laura UD 3 mL, Inhalation, q4hRT ALPRAZOLam 0.5 mg tablet 0.5 mg 1 tab(s), Oral, BID dextrose 50% Solution Disp syringe 50 mL 25 gram(s) 50 mL, IV Push, AsDirected guaifenesin 100 mg/5 mL Liquid 120 mL 200 mg 10 mL, Oral, q4h melatonin 3 mg tablet 3 mg 1 tab(s), Oral, qHS morphine 2 mg/mL 1 mL syringe 1 mg 0.5 mL, IV Push, q4h ondansetron 2 mg/ 1 mL 2 mL INJ 4 mg 2 mL, IV Push, q4h oxycodone 5 mg tablet (immediate release) 5 mg 1 tab(s), Oral, q4h polyethylene glycol 3350 - UD packet 17 gram(s) 15 mL, Oral, qDay Lab Results 02/08 07:21 Glucose Level: 122 H Sodium Level: 139 Potassium Level: 4.5 BUN: 8.0 Creatinine Lvl (s): 1.11 02/07 07:29 Glucose Level: 129 H Sodium Level: 140 Potassium Level: 4.1 BUN: 12.0 Creatinine Lvl (s): 1.17 Imaging Results and Diagnostics MRI Spine Thoracic w/ + w/o Contrast Result Date: February 07, 2025 Verified By: SHIRA CARVAJAL DO CLINICAL STATEMENT: IMPRESSION: 1. No acute abnormality or abnormal enhancement of the thoracic spine.2. Multilevel degenerative changes, most severe at T10-11 with a large rightsubarticular zone herniation with superior extrusion resulting in moderatenarrowing of the spinal canal and effacement of the right hemicord.There isminimal increased signal within the left china cord at this level, overallsimilar in appearance to the prior study. MRI Spine Lumbar w/ + w/o Contrast Result Date: February 07, 2025 Verified By: SHIRA CARVAJAL DO CLINICAL STATEMENT: IMPRESSION: 1. No acute abnormality, fracture, or worsening narrowing of the spinal canalor neural foramina.2. Redemonstration of changes status post L4 laminectomy for L4-5decompression.3. Decreasedpostoperative soft tissue enhancement. No significant edema. Nofluid collection.4. Stable appearance of a large left central and subarticular zone discextrusion at T12-L1 with associated moderate narrowing of the spinal canal.5. Moderate right neural foraminal stenosis at L4-5. CT Spine Lumbar w/o Contrast Result Date: February 05, 2025 Verified By: Shahida_MICHELLE gunter CLINICAL STATEMENT: IMPRESSION: Unremarkable non-contrast CT of the lumbar spine. Moderate spinal canal stenosis at T12-L1 due to disc osteophyte complex. CT Pelvis w/o Contrast Result Date: February 05, 2025 Verified By: UMAIR PICHADRO MD CLINICAL STATEMENT: IMPRESSION: No acute fracture or dislocation. I have personally reviewed the images of this examination and agree with theresident's findings and interpretation. Assessment/Plan Acute on chronic back pain Right hip pain Patient is a 49 year old female, well known to the neurosurgery service, who previously underwent aright L4-L5 laminectomy with partial medial facetectomy and foraminotomy with Dr. Olmstead on 04/24/2024,who presented to the [place] ED on 02/05/2025 with complaints of increased low back, right hip, and groin pain. Patient was recently seen in the [place] [facility] office on 02/04/2025 with complaints of mid tolow back pain radiating into her bilateral hips. Patient denied any shooting pain down her legs, acute onset paresthesias, weakness, saddle anesthesia, or loss of bowel or bladder function. Patient'sLyrica dosing was increased from 50mg TID to 100mg TID and was switched from Tizanidine to Robaxin.Patient was also ordered an MRI thoracic and lumbar spine with and without contrast; scheduled for 02/20/2025. Unfortunately, the patient slipped on a wet surface and felt a pop in her right hip. Patient immediately developed severe pain radiating into her groin. Patient also had a difficult time bearing weight on her RLE therefore she went to the [facility] ED on 02/05/2025 for further evaluation. Patient had a CT pelvis without contrast performed which demonstrated no acute fracture or dislocation. A CT lumbar spine without contrast was also performed which demonstrated moderate spinal canal stenosis T12-L1 due to disc osteophyte complex. Patient received Valium and Dilaudid in the ED without improvement of her symptoms. Due to this, patient was admitted to [facility] under the hospitalist service for further workup. Neurosurgery consultation was requested. MRI thoracic and lumbar spine with and without contrast were completed on 02/07/2025. These studies have been reviewed by Dr. Gotti. It demonstrates her known disc herniations within the thoracic and lumbar spine which appear stable/unchanged compared to her last MRIs completed in June 2024. No acute neurosurgical intervention is required per Dr. Gotti. Continue pain control per primary team. We would also recommend a consultation to orthopedics for further evaluation of her right hip. Patient has pain with palpation of the right hip joint and her current symptoms are exacerbatedwith ROM of the right hip. Please see Dr. Gotti's addendum for additional recommendations. Digitally Signed by BRITTANY LEE on 02/08/2025 10:53 AM [id number] Neurological surgery Progress note Date of Service 02/08/2025 Split/Shared visit with Dr. Gotti Subjective Neurosurgery CC: Acute on chronic back pain Patient is a 49 year old female who is well known to the [place] [facility] service. Patient previously underwent right L4-L5 laminectomy with partial medial facetectomy and foraminotomy with Dr. Olmstead on 04/24/2024. Postoperatively, the patient had initially noted improvement in her RLE pain, paresthesias, and weakness however her symptoms returned. Patient was ordered outpatient physical therapy/aquatic therapy and [facility]. Patient had postoperative MRI testing completed; Dr. Olmstead noted no lumbar pathology on MRI imaging to explain her worsening LLE weakness. Additionally had MRIs of the brain, cervical and thoracic spine ordered by PCP due to concern for possible MS; spinal MRIs did not show evidence of demyelination. Thoracic MRI with findings of a large right herniated disc at T9-T10 and large central herniated disc at T11-T12. Brain MRI resulted with minimal nonspecific white matter disease. Patient was also ordered an EMG/NCV of her bilateral lower extremities. 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 It also noted electromyographic changes involving the left leg consistent with a left L5 radiculopathy although a partial axonal type peroneal mononeuropathy without associated sensory changes cannot be entirely excluded. Patient was referred to orthopedics to further evaluation/treatment of her peroneal nerve. Patient was found to have thiamine and B12 deficiencies and has been receiving B1and B12 injections on an outpatient basis; this is what improved her bilateral lower extremity weakness and paresthesias. Patient was recently seen in the [place] [facility] office on 02/04/2025 with complaints of mid tolow back pain radiating into her bilateral hips. Patient denied any shooting pain down her legs, acute onset paresthesias, weakness, saddle anesthesia, or loss of bowel or bladder function. Patient'sLyrica dosing was increased from 50mg TID to 100mg TID and was switched from Tizanidine to Robaxin.Patient was also ordered an MRI thoracic and lumbar spine with and without contrast; scheduled for 02/20/2025. Unfortunately, the patient slipped on a wet surface and felt a pop in her right hip. Patient immediately developed severe pain radiating into her groin. Patient also had a difficult time bearing weight on her RLE therefore she went to the [facility] ED on 02/05/2025 for further evaluation. Patient had a CT pelvis without contrast performed which demonstrated no acute fracture or dislocation. A CT lumbar spine without contrast was also performed which demonstrated moderate spinal canal stenosis T12-L1 due to disc osteophyte complex. Patient received Valium and Dilaudid in the ED without improvement of her symptoms. Due to this, patient was admitted to [facility] under the hospitalist service for further workup. Neurosurgery consultation was requested. MRI thoracic and lumbar spine with and without contrast were completed on 02/07/2025. These studies have been reviewed by Dr. Gotti. It demonstrates her known disc herniations within the thoracic and lumbar spine which appear stable/unchanged compared to her last MRIs completed in June 2024. Patient was seen and examined at bedside this morning. Patient is seen resting in bed, no acute distress noted. Patient is awake, alert, and oriented x4. She follows simple commands appropriately. Speech is clear and fluent. Patient moves all 4 extremities spontaneously on exam. Patient has 5/5 strength throughout her LLE. Patient has normal dorsiflexion and plantar flexion bilaterally on exam. Patient does have 4+/5 strength in her RLE with knee flexion/extension; patient states this exacerbates her pain.Patient also notes exacerbation of her pain with hip ROM and palpation of the right hip joint. Normal light touch sensation throughout. Patient notes most of her severe pain is within the right hip; she states it feels like my hip popped out of it's socket. Patient denies any saddle anesthesia or loss of bowel or bladder control. Objective Vitals and Measurements T: 36.5 C (Oral) TMIN: 36.5 C (Oral) TMAX: 36.8 C (Oral) HR: 70 RR: 18 BP: 108/66 SpO2: 94% Intake and Output 7AM Yesterday to 7AM Today Intake and Output (Last 24 hours) Intake Oral Intake 300.00 Output Stool Count 0.00 Total Summary Total Intake 300.00 Total Output 0.00 Fluid Balance 300.00 Physical Exam Weight Dosing Weight: 120.2 kg (02/06/25) Dosing Weight: 120.2 kg (02/05/25) Medications Medications (24) Active Scheduled: (15) acetaminophen 500 mg Tablet 1,000 mg 2 tab(s), Oral, TID atorvastatin 10 mg tablet 10 mg 1 tab(s), Oral, qDay bupropion 150 mg/24 hours ER tablet 150 mg 1 tab(s), Oral, qDay cholecalciferol 125 mcg capsule (Vit D3 5000 unit(s)) 250 mcg 2 cap(s), Oral, Every other day cloNIDine 0.3 mg tablet 0.3 mg 1 tab(s), Oral, BID insulin glargine 10 unit(s) 0.1 mL, Subcutaneous (INT), qAM insulin lispro 100 units/mL Soln (3 mL) Give 0-10 units/dose, Subcutaneous, TIDAC methocarbamol 500 mg Tablet 500 mg 1 tab(s), Oral, QID montelukast 10 mg Tablet 10 mg 1 tab(s), Oral, qDay omeprazole [address] capsule 40 mg 1 cap(s), Oral, qDay pregabalin 50 mg capsule 100 mg 2 cap(s), Oral, TID propranolol 40 mg tablet 40 mg 1 tab(s), Oral, qDay QUEtiapine 50 mg tablet 50 mg 1 tab(s), Oral, qHS rosuvastatin 20 mg tablet 20 mg 1 tab(s), Oral, Daily senna 8.6 mg Tablet 17.2 mg 2 tab(s), Oral, BID Continuous: (0) PRN: (9) albuterol - ipratropium 2.5 mg-0.5 mg/3 mL Inhal Laura UD 3 mL, Inhalation, q4hRT ALPRAZOLam 0.5 mg tablet 0.5 mg 1 tab(s), Oral, BID dextrose 50% Solution Disp syringe 50 mL 25 gram(s) 50 mL, IV Push, AsDirected guaifenesin 100 mg/5 mL Liquid 120 mL 200 mg 10 mL, Oral, q4h melatonin 3 mg tablet 3 mg 1 tab(s), Oral, qHS morphine 2 mg/mL 1 mL syringe 1 mg 0.5 mL, IV Push, q4h ondansetron 2 mg/ 1 mL 2 mL INJ 4 mg 2 mL, IV Push, q4h oxycodone 5 mg tablet (immediate release) 5 mg 1 tab(s), Oral, q4h polyethylene glycol 3350 - UD packet 17 gram(s) 15 mL, Oral, qDay Lab Results 02/08 07:21 Glucose Level: 122 H Sodium Level: 139 Potassium Level: 4.5 BUN: 8.0 Creatinine Lvl (s): 1.11 02/07 07:29 Glucose Level: 129 H Sodium Level: 140 Potassium Level: 4.1 BUN: 12.0 Creatinine Lvl (s): 1.17 Imaging Results and Diagnostics MRI Spine Thoracic w/ + w/o Contrast Result Date: February 07, 2025 Verified By: SHIRA CARVAJAL DO CLINICAL STATEMENT: IMPRESSION: 1. No acute abnormality or abnormal enhancement of the thoracic spine.2. Multilevel degenerative changes, most severe at T10-11 with a large rightsubarticular zone herniation with superior extrusion resulting in moderatenarrowing of the spinal canal and effacement of the right hemicord.There isminimal increased signal within the left china cord at this level, overallsimilar in appearance to the prior study. MRI Spine Lumbar w/ + w/o Contrast Result Date: February 07, 2025 Verified By: SHIRA CARVAJAL DO CLINICAL STATEMENT: IMPRESSION: 1. No acute abnormality, fracture, or worsening narrowing of the spinal canalor neural foramina.2. Redemonstration of changes status post L4 laminectomy for L4-5decompression.3. Decreasedpostoperative soft tissue enhancement. No significant edema. Nofluid collection.4. Stable appearance of a large left central and subarticular zone discextrusion at T12-L1 with associated moderate narrowing of the spinal canal.5. Moderate right neural foraminal stenosis at L4-5. CT Spine Lumbar w/o Contrast Result Date: February 05, 2025 Verified By: Shahida_MICHELLE gunter CLINICAL STATEMENT: IMPRESSION: Unremarkable non-contrast CT of the lumbar spine. Moderate spinal canal stenosis at T12-L1 due to disc osteophyte complex. CT Pelvis w/o Contrast Result Date: February 05, 2025 Verified By: UMAIR PICHARDO MD CLINICAL STATEMENT: IMPRESSION: No acute fracture or dislocation. I have personally reviewed the images of this examination and agree with theresident's findings and interpretation. Assessment/Plan Acute on chronic back pain Right hip pain Patient is a 49 year old female, well known to the neurosurgery service, who previously underwent [facility] L4-L5 laminectomy with partial medial facetectomy and foraminotomy with Dr. Olmstead on 04/24/2024,who presented to the [place] ED on 02/05/2025 with complaints of increased low back, right hip, and groin pain. Patient was recently seen in the [place] [facility] office on 02/04/2025 with complaints of mid tolow back pain radiating into her bilateral hips. Patient denied any shooting pain down her legs, acute onset paresthesias, weakness, saddle anesthesia, or loss of bowel or bladder function. Patient'sLyrica dosing was increased from 50mg TID to 100mg TID and was switched from Tizanidine to Robaxin.Patient was also ordered an MRI thoracic and lumbar spine with and without contrast; scheduled for 02/20/2025. Unfortunately, the patient slipped on a wet surface and felt a pop in her right hip. Patient immediately developed severe pain radiating into her groin. Patient also had a difficult time bearing weight on her RLE therefore she went to the [facility] ED on 02/05/2025 for further evaluation. Patient had a CT pelvis without contrast performed which demonstrated no acute fracture or dislocation. A CT lumbar spine without contrast was also performed which demonstrated moderate spinal canal stenosis T12-L1 due to disc osteophyte complex. Patient received Valium and Dilaudid in the ED without improvement of her symptoms. Due to this, patient was admitted to [facility] under the hospitalist service for further workup. Neurosurgery consultation was requested. MRI thoracic and lumbar spine with and without contrast were completed on 02/07/2025. These studies have been reviewed by Dr. Gotti. It demonstrates her known disc herniations within the thoracic and lumbar spine which appear stable/unchanged compared to her last MRIs completed in June 2024. No acute neurosurgical intervention is required per Dr. Gotti. Continue pain control per primary team. We would also recommend a consultation to orthopedics for further evaluation of her right hip. Patient has pain with palpation of the right hip joint and her current symptoms are exacerbatedwith ROM of the right hip. Please see Dr. Gotti's addendum for additional recommendations. Digitally Signed by BRITTANY LEE on 02/08/2025 10:53 AM [id number] Note* Exam Date Time Procedure Performing Provider Status 02/07/25 2:15 PM MRI Spine Lumbar w/ + w/o Contrast SHIRA CARVAJAL DO; Auth (Verified) [id number] ORIGINAL EXAMINATION: MRI OF THE LUMBAR SPINE WITHOUT AND WITH CONTRAST 02/07/2025 2:41 pm TECHNIQUE: Multiplanar multisequence MRI of the lumbar spine was performed without and with the administration of intravenous contrast. COMPARISON: CT lumbar spine without contrast 02/05/2025, MRI lumbar spine with and without contrast 07/03/2024 HISTORY: ORDERING SYSTEM PROVIDED HISTORY: Reason for Exam: Acute on chronic back pain FINDINGS: BONES/ALIGNMENT: Redemonstration of changes status post L4 laminectomy for L4-5 decompression vertebral body heights are maintained. Marrow signal is largely preserved with some Modic type 2 changes noted along the anterior endplate of the L1 vertebral body. SPINAL CORD: The conus terminates normally at L1-2. No abnormal signal. SOFT TISSUES: Soft tissue enhancement is appreciated along the bilateral L3 through 5 articular facets, particularly about the L4-5 facets bilaterally. Enhancement is also noted within the posterior paraspinal soft tissues and left erector spinae musculature, decreased from the prior study. No significant edema. No fluid collection. T12-L1: Stable appearance of a large left central and subarticular zone disc extrusion with associated moderate narrowing of the spinal canal. No significant neural foraminal stenosis. L1-L2: There is no significant disc protrusion, spinal canal stenosis or neural foraminal narrowing. L2-L3: There is no significant disc protrusion, spinal canal stenosis or neural foraminal narrowing. L3-L4: There is no significant disc protrusion, spinal canal stenosis or neural foraminal narrowing. L4-L5: The spinal canal is widely patent. An anterior disc bulge is noted. Facet arthropathy is appreciated bilaterally with moderate right neural foraminal stenosis. L5-S1: Mild bilateral facet hypertrophy with associated mild bilateral neural foraminal stenosis. IMPRESSION: 1. No acute abnormality, fracture, or worsening narrowing of the spinal canal or neural foramina. 2. Redemonstration of changes status post L4 laminectomy for L4-5 decompression. 3. Decreased postoperative soft tissue enhancement. No significant edema. No fluid collection. 4. Stable appearance of a large left central and subarticular zone disc extrusion at T12-L1 with associated moderate narrowing of the spinal canal. 5. Moderate right neural foraminal stenosis at L4-5. Interpreted by: Shira Carvajal Preliminary Report By: Shira Carvajal Electronically signed By Shira Carvajal Dictated Date: 02/07/2025 3:14:27 PM Prelim Date: 02/07/2025 3:28:44 PM Sign Date: 02/07/2025 3:28:44 PM Ordering Provider: [facility]03-22-2025 Note* Exam Date Time Procedure Performing Provider Status 02/07/25 1:56 PM MRI Spine Thoracic w / + w/o Contrast SHIRA CARVAJAL DO; Auth (Verified) [id number] ORIGINAL EXAMINATION: MRI OF THE THORACIC SPINE WITHOUT AND WITH CONTRAST 02/07/2025 2:35 pm TECHNIQUE: Multiplanar multisequence MRI of the thoracic spine was performed without and with the administration of intravenous contrast. COMPARISON: MRI T-spine with and without contrast 07/17/2024 HISTORY: ORDERING SYSTEM PROVIDED HISTORY: Reason for Exam: Acute on chronic back pain FINDINGS: BONES/ALIGNMENT: There is normal alignment of the spine. The vertebral body heights are maintained. The bone marrow signal appears unremarkable. No abnormal marrow enhancement. SPINAL CORD: Minimal cord signal change is appreciated within the left lateral china cord at the level of a large right subarticular herniation at T10-11. SOFT TISSUES: Prevertebral and paraspinal soft tissues are grossly unremarkable. No abnormal enhancement of the thoracic spine. No paraspinal mass identified. DEGENERATIVE CHANGES: Multilevel degenerative changes are appreciated with intervertebral disc space loss and disc desiccation. These changes appear most severe at T9-10 with a small left subarticular zone herniation resulting in minimal narrowing of the spinal canal and slight effacement of the left lateral hemicord without significant cord signal change. At T10-11, a large right subarticular zone herniation with superior extrusion is appreciated resulting in moderate narrowing of the spinal canal and effacement of the right hemicord. There is minimal increased signal within the left china cord at this level, overall similar in appearance to the prior study. Findings at T12-L1 are described on separate dedicated lumbar imaging. IMPRESSION: 1. No acute abnormality or abnormal enhancement of the thoracic spine. 2. Multilevel degenerative changes, most severe at T10-11 with a large right subarticular zone herniation with superior extrusion resulting in moderate narrowing of the spinal canal and effacement of the right hemicord. There is minimal increased signal within the left china cord at this level, overall similar in appearance to the prior study. Interpreted by: Shira Carvajal Preliminary Report By: Shira Carvajal Electronically signed By Shira Carvajal Dictated Date: 02/07/2025 3:00:47 PM Prelim Date: 02/07/2025 3:14:16 PM Sign Date: 02/07/2025 3:14:16 PM Ordering Provider: JEFF MEANS [id number] Evaluation + Plan noteExtracted from: Title:Clinical Document Author:JEFF MEANS MD Date:02/06/25 [facility] Hospitalist History and Physical Date of Admission: patient is being admitted on February 06, 2025 Chief complaint: acute on chronic back pain History of present illness: History is taken from talking with emergency room physician and [place] as well as talking with the patient. Patient has a past medical history of diabetes mellitus type II, hypertension, hyperlipidemia, Gerd, peripheral neuropathy, anxiety/depression, migraine headaches, CKD stage III, fibromyalgia, polycystic ovarian syndrome, lumbar laminectomy on April 24, 2024. Patient was last discharged from here on April 26, 2024 from the neurosurgery service and during that admission the patient presented with low back pain with sciatica which failed conservative management and therefore she underwent laminectomy. The patient was seen by neurosurgery in clinic on February 04, 2025. Her complaint was having worsening low back pain with radiation down her legs without numbness or tingling or weakness. And she told them that her symptoms have been getting worse over the last several weeks. They did switch her muscle relaxants and increase her Lyrica. They ordered an MRI of the lumbar and thoracic spine with and without contrast that is scheduled for February 20. Patient went to the emergency room last night due to having worsening pain. Patient states that several days ago she stepped on a wet spot causing her to slip and she immediately felt a pop in her right hip area. She did not fall. She states that ever since then she has been having severe low back and right sided hip and groin pain. She reports having difficulty ambulating due to the pain. She denies fevers, chills or night sweats. Since presenting to the emergency room the patient has been afebrile, hemodynamically stable, 97% room air. The following labs and imaging were personally reviewed CT pelvis without contrast did not show any acute fracture or dislocation CT lumbar spine without contrast showed moderate spinal canal stenosis at T 12 through L1 due to disc osteophyte complex. In the emergency room the patient was given Valium multiple doses fentanyl and multiple doses of Dilaudid and still had severe pain therefore they requested her to be admitted here for further evaluation. Past medical history: Angioedema Anxiety Asthma CKD (chronic kidney disease), stage III Celiac disease Claustrophobia Cough Depression, major, recurrent, moderate Diabetes mellitus, type II (Raghunathan) Encounter for surgical aftercare following surgery of sense organs Environmental allergies Eosinophil adenoma Essential hypertension Fatigue Fibromyalgia Foot drop Foot drop, right Gastrointestinal distress Glasses High triglycerides Hirsutism Hypercholesterolemia Hypertension Left-sided weakness Metabolic syndrome Migraine Morbid obesity Nausea & vomiting Neurologic disorder Orthostatic hypotension PCOS (polycystic ovarian syndrome) Palpitations Paresthesia Personality disorder Sleep apnea Spasm Vitamin D deficiency Weakness Right L4-L5 laminectomy with partial medial facetectomy and foraminotomy: 04/24/24 EGD (esophagogastroduodenoscopic) electrohydraulic lithotripsy of bezoar in stomach: 01/25/24 Colonoscopy: 01/25/24 Bowel: 2016 Fall: 02/25/16 History of vaginal hysterectomy: 05/2012 Stress testing using pharmacologic-induced stress Family history: Mother: Fibromyalgia Father: Cancer; Heart attack Sister: Asthma; Fibromyalgia Brother: HTN - Hypertension; Meniere's disease 11-AUG-2014 16:50:41<$> Daughter: Diabetes mellitus Son: Asthma Social history: Denies smoking cigarettes or alcohol consumption Medications: Home Medications (24) Active, medications were not verified by pharmacy at the time of this dictation acetaminophen 650 mg oral tablet, extended release 1,300 mg = 2 tab(s), PRN, Oral, q8h ALPRAZolam 0.5 mg oral tablet See Instructions, PRN aspirin 81 mg oral delayed release tablet 81 mg = 1 tab(s), Oral, Daily atorvastatin 10 mg oral tablet 10 mg = 1 tab(s), Oral, qDay buPROPion 150 mg/24 hours (XL) oral tablet, extended release See Instructions cetirizine 10 mg oral capsule 10 mg = 1 cap(s), Oral, qDay cloNIDine 0.3 mg oral tablet 0.3 mg = 1 tab(s), Oral, BID levalbuterol tartrate HFA 45mcg/inh inhaler 1 puff(s), PRN, Inhalation, q6hr Lyrica 50 mg oral capsule 50 mg = 1 cap(s), Oral, TID MetFORMIN (Eqv-Glucophage XR) 500 mg oral tablet, EXTENDED RELEASE 1,500 mg = 3 tab(s), Oral, qDay methocarbamol 500 mg oral tablet 500 mg = 1 tab(s), Oral, QID Mounjaro 10 mg/0.5 mL subcutaneous solution 10 mg, Subcutaneous, qWeek omeprazole 40 mg oral delayed release capsule 40 mg = 1 cap(s), Oral, qDay ondansetron 4 mg oral tablet, disintegrating 4 mg = 1 tab(s), PRN, Oral, TID pregabalin 100 mg oral capsule 100 mg = 1 cap(s), Oral, TID propranolol 40 mg oral tablet 40 mg = 1 tab(s), Oral, qDay QUEtiapine 50 mg oral tablet See Instructions rosuvastatin 20 mg oral tablet 20 mg = 1 tab(s), Oral, Daily Senna See Instructions Singulair 10 mg oral tablet 10 mg = 1 tab(s), Oral, qDay spironolactone 50 mg oral tablet 50 mg = 1 tab(s), Oral, qDay tiZANidine 4 mg oral tablet 1 tab(s), PRN, Oral, q8h Vitamin D3 250 mcg (10,000 intl units) oral capsule 250 mcg = 1 cap(s), Oral, Every other day Xopenex 0.63 mg/3 mL inhalation solution 0.63 mg = 3 mL, PRN, Nebulized, TID Allergies: Imitrex (Hypotension) amLODIPine (lip swelling) Actos (blurred vision) Compazine (Anxiety) Diflucan (Lip swelling) lisinopril (angioedema) Maxalt (Hypotension) Norflex (Anxiety) Reglan Review of systems: See HPI for pertinent positives and negatives. All other review of systems have been reviewed and they are negative. Vitals Signs(Last 24 hrs)__Last Charted Minimum Maximum Heart Rate81(FEB 05 23:49)81(FEB 05 23:49)81(FEB 05 23:49) QLD121(FEB 05 23:49)128(FEB 05 23:49)H 160(FEB 05 18:45) DBP75(FEB 05 23:49)75(FEB 05 23:49)C 112(FEB 05 18:45) Physical examination: HEENT: No Pallor, No Icterus Cardiac: RRR, No murmur Lungs: CTA, good air entry Abdomen: Soft Non tender Musculoskeletal: complaining of right hip/back pain with any movement Extremities: No edema, good pulses Neurological: Alert, no deficits Skin: No rash, no nodules Labs: as mentioned HPI. Assessment and plan: Patient presents from [place] on February 06, 2025 due to having acute on chronic back pain. Acute on chronic back pain. Patient does require two midnight hospital stay due to having severe back pain with moderate thoracic and lumbar spinal canal stenosis. Will order the MRI of the lumbar and thoracic spine with and without contrast. Symptomatic management. Will consult neurosurgery. NPO with IV fluids in case of procedure. Patient cannot be treated outpatient due to the severity of her pain. Diabetes mellitus type II. Continue home medications. Sliding scale insulin Hypertension. Continue home medications Hyperlipidemia. Continue statin Gerd. Continue Protonix Peripheral neuropathy. Continue home medications Anxiety/depression. Continue home medications Migraine headaches and fibromyalgia. Continue home medications CKD stage III. Will check a BMP Prophylaxis SCD in case of procedure Code status full code Addendum by JEFF MEANS MD on February 06, 2025 5:54 EDT medications will need reconciled once th ey are verified Addendum by SINAI JEAN on February 06, 2025 9:56 EDT This is a 49-year-old female with a know n history of type 2 diabetes mellitus, hypertension, upper lipidemia, GERD, peripheral neuropathy, anxiety/depression, migraine headaches, CKD stage III with a creatinine baseline of 1.1-1.2, fibromyalgia, polycystic ovarian syndrome, L4/5 disc bulge causing foraminal stenosis and impingement of the right L5 nerve status post L4-5 laminectomy with partial medial facetectomy and foraminotomy 04/24/2024 who presented to the ED on 02/05/2025 due to progressively worsening lower back pain after having an accident, she describes this as her stepping on a wet spot causing her to slip and immediately felt a pop in her right hip area about 3 to 4 days ago and ever since, she has been having severe low back and right-sided hip and groin pain. This is caused her to have significant debility with difficulty ambulating due to the pain. No fever night sweats or chills. She was seen by the neurosurgery office on 02/04/2025, she has been complaining to them about low back pain with radiation down her legs without numbness or tingling or weakness. They started the patient on muscle relaxers and increased her Lyrica dosing. MRI of the lumbar and thoracic spine with and without contrast was ordered and was scheduled for 02/20/2025. In the ED, patient was hemodynamically stable, afebrile saturating well on room air. Labs essentially unremarkable, ESR was slightly elevated at 22 but not very significant, glucose of 128, creatinine 1.25 slightly deranged from her baseline, magnesium of 1.4, potassium 3.9. LFTs within normal limits. Lactic acid within normal limits. CRP less than 0.5. She had a CT pelvis without contrast which did not show any acute fracture or dislocation. She had a CT spine lumbar without contrast which was unremarkable. Moderate spinal canal stenosis at T12-L1 due to disc osteophyte complex was noted. Patient was given a dose of Valium 2 mg x 2, fentanyl, Dilaudid and despite this was still having severe pain and therefore she was transferred to [place] from [place] and admitted for further management of intractable back pain. Currently, the patient's pain is in the right lateral hip and radiating to the back where her previous surgery was, she also states that she is having some pain in her right groin with some sensory deficit with paresthesias/exic-mqh-vtdxaee feeling in that area. No urinary retention or loss of control of bowels or constipation. Acute on chronic back pain Moderate stenosis at T12-L1 secondary to disc osteophyte complex Hyperglycemia in the setting of known type 2 diabetes mellitus Mild nonoliguric SYED and CKD stage III with a baseline of around 1.1-1.2 Hypomagnesemia DVT prophylaxis: SCDs for now CODE STATUS: Full code Plan: Will adjust patient's pain regimen. Will schedule Tylenol 1 g 3 times a day, oxycodone 5 mg for pain 4-10 every 4 hours as needed. Will resume home methocarbamol, will await evaluation by neurosurgery to see if the patient would benefit from any steroid trial. Await thoracic and lumbar MRI. Hold Mounjaro, metformin. Continue sliding scale insulin here, will schedule long-acting insulin as well based on her body weight. Resume home medications as deemed appropriate. Given that the patient has a mild derangement in kidney function, would hold her home spironolactone. Resume other antihypertensive medications. Will replete magnesium to maintain a level of 2. It does not appear that the patient has any neurological emergency that would require emergent operative intervention, will need to await MRI, will start the patient on diet. Can keep n.p.o. after midnight in case of any procedure. Patient states that she is allergic to pork. This is a note transcribed by me, the attending physician on service using the '[employer]' dictation software. Please excuse any grammatical errors, repetitions/duplications if any are present in the entirety of this note. Thank you. Future Appointments Appointment Date:02/20/2025 03:30:00 PM Scheduled Provider: Location:[facility] Appointment Type:MRI Spine Lumbar w/ + w/o Contrast Appointment Date:02/20/2025 04:15:00 PM Scheduled Provider: Location:[facility] Appointment Type:MRI Spine Thoracic w/ + w/o Contrast Appointment Date:03/04/2025 11:30:00 AM Scheduled Provider:CHRIS OLMSTEAD MD Location:[facility] Appointment Type:NS OV Appointment Date:03/16/2025 02:45:00 PM Scheduled Provider:ELIANE HENSON MD Location:[facility] Appointment Type:ENDO OV Appointment Date:04/27/2025 02:15:00 PM Scheduled Provider:ELIANE HENSON MD Location:[facility] Appointment Type:ENDO OV Future Scheduled Tests Laboratory* ACTH, Plasma 04/29/25 * Cortisol Level 04/29/25 * AChR Binding Abs, Serum 10/12/24 * AChR Blocking Abs, Serum 10/12/24 * C-Reactive Protein 10/12/24 * Thyroid Stimulating Hormone 04/29/25 * Thyroid Stimulating Hormone 11/17/24 * Free T4 04/29/25 * Free T4 11/17/24 * AChR-modulating Ab 10/12/24 * Salivary Cortisol,MS 08/18/24 * A1C Hemoglobin 04/29/25 * A1C Hemoglobin 11/17/24 * Dehydroepiandrosterone Sulfate 04/29/25 * Free T3 04/29/25 * Free T3 11/17/24 * Lipid Profile 04/29/25 * Lipid Profile 11/17/24 * Albumin/Creatinine Ratio, Random Urine 04/29/25 * Sedimentation Rate Automated 10/12/24 * Vitamin D Level 04/29/25 * Vitamin D Level 11/17/24 * Complete Metabolic Panel 04/29/25 * Complete Metabolic Panel 11/17/24 [facility] 03-21-2025 Neurological surgery Consult note Date of Service 02/06/2025 Reason for Consultation Acute on chronic back pain Referring Physician Dr Means History of Present Illness This is a 49-year-old female known to [place] [facility], as she previously underwent an L4-L5 laminectomy 04/24/[address] Olmstead for right sided L4-L5 disc bulge with foraminal stenosis causing right sided partial foot drop and numbness from the right knee down. Patient initially did well postoperatively and had significant improvement and relief of her symptoms, however then symptoms of numbness, weakness and dropfoot slowly returned. Medications were adjusted, ordered outpatient PT/aquatic therapy and underwent lumbar ARLEEN, though without improvement. Symptoms persisted, and had also then developed a left foot drop. Underwent lumbar MRI in June 2024. Dr. Olmstead noted no lumbar pathology to explain new onset left lower extremity weakness and foot drop. Additionally had MRIs of the brain,cervical and thoracic spine ordered by PCP due to concern for possible MS; spinal MRIs did not showevidence of demyelination. Thoracic MRI with findings of a large right herniated disc at T9-T10 andlarge central herniated disc at T11-T12. Brain MRI resulted with minimal nonspecific white matter disease. 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 It also noted electromyographic changes involving the left leg consistent with a left L5 radiculopathy although a partial axonal type peroneal mononeuropathy without associated sensory changes cannot be entirely excluded. [facility]. Provides she was found to have very low vitamin B levels and received supplementation which led to resolution of her numbness. Patient provides to me that she has been doing quite well after her low vitamin B levels were treated. States that in fact she had visited prior coworkers at [employer] that she worked with before transitioning to remote position, and was bragging to them about how well I have been doing. However, then about 2 weeks ago patient began noticing recurrent pain in her low back at night, making it difficult for her to get comfortable and to sleep. Pain began intermittently and in the right low back, though progressed and became constant. Pain made it difficult for her to walk. She contacted neurosurgery office a few days ago, and was evaluated on 02/04/2025. Noted to have mid low back pain radiating into her hips bilaterally. Lyrica dose increased from 50 mg 3 times daily to 100 mg 3 times daily, and she was switched from tizanidine to Robaxin. MRI studies of thoracic and lumbar spinewere ordered; scheduled on 02/20/25. Then on the evening of 02/04, patient states she slipped on a wet surface, though did not fall. She felt a pop in her right hip and developed severe pain radiating to her groin without relief from medications- Tylenol and tizanidine. Had difficulty bearing weight on the RLE, and ambulating. This prompted her to see evaluation, and presented to [facility] ED 02/05/2025. In the ER, had CT of pelvis that showed no acute fracture or dislocation. Also underwent CT Lumbar spine. This showed no acute findings, though indicated moderate spinal canal stenosis T12-L1 due to disc osteophyte complex. Evidence of laminectomy at L4-L5. Received Valium and Dilaudid, without anysignificant improvement. Patient was transferred and admitted to [facility] for further workup, and pain/symptom control by the Hospitalist. Neurosurgery consultation requested. It is noted that thoracic and lumbar MRIs have been ordered by the primary team, however have not yet been completed. Patient evaluated, and is seen resting in bed, lying supine. She is in no acute distress. She is fully awake, alert and oriented. She contributes adequately to HPI and provides timeline/details well.She follows commands and moves all 4 extremities. Has strong and equal motor strength of bilateral UEs; sensation symmetrically intact to arms and hands. Left LE strength fully intact. Weakness of right dorsiflexion and plantar flexion compared to the right, as well as with knee flexion 4/5; patient contributes this to exacerbation of pain when performing these movements. Provides right foot dropis improved postoperatively; states currently it is better now than he had been before. Denies altered sensation or any numbness/tinging of the LEs. Light touch sensation is intact. Denies acute bowel or bladder issues, though states has some difficulty and limitation secondary to pain when twisting around to wipe her self from behind. She denies saddle anesthesias, or loss of sensation in genitalia. Reports LBP that radiates bilaterally and into her hips. States it feels as if someone is forcibly squeezing her hips and pulling down, causing pain at her incision. +Severe pain in the right hip that radiates to right groin, worsens with hip ROM and RLE motor testing. She has tenderness with palpation of the right hip joint. Also with +pain with hip abduction and adduction which she states radiates along groin on the right. No pain to left hip upon palpation or with ROM. She reports noticing coldness in her feet over the past couple weeks, which is new for her. Also states noticing her toenails had a blue tint to them the other day when going into bathroom to bathe. States she wears MAURY hose and additionally uses thick socks on top of these at home. MAURY hose removed for exam. Along all of her toes to both feet are cold to touch, slightly worse on the right. LE Skin color is normal, and pedal pulses are palpable, 2+. Review of Systems GENERAL: Denies any recent illnesses, infections, fever, chills, or night sweats. States has had decreased appetite secondary to her pain. SKIN: Denies skin complaints. Denies pruritus or rashes. HEENT: Denies headaches, or dizziness. No acute visual changes or complaints. No ear complaints. Denies rhinorrhea or sore throat. MS: See HPI. c/o right hip/groin pain. RESPIRATORY: Denies shortness of breath, difficulty breathing or cough. CARDIOVASCULAR: Denies chest pain, pressure, palpitations. GI: Denies abdominal pain, nausea, vomiting. Denies changes in bowel movements/habits. : Denies dysuria or hematuria. Denies urinary incontinence, or loss of urinary control. PV: See HPI; C/o coldness in feet- worse on the right NEUROLOGICAL: See HPI. Physical Exam Vitals and Measurements T: 36.7 C (Oral) TMIN: 36.1 C (Temporal Artery) TMAX: 36.7 C (Oral) HR: 77 (Monitored) RR: 18 BP: 143/85 SpO2: 94% HT: 172.2 cm WT: 120.2 kg BMI: 40.54 Weight Dosing Weight: 120.2 kg (02/06/25) Dosing Weight: 120.2 kg (02/05/25) General survey: 49 year old female, well developed and well nourished. She is laying in bed, and in no acute distress. Engages well with examiner, conversant and cooperative; participates in exam. Skin: Skin is warm and dry. No rashes or lesions. HEENT: Head is normocephalic. Extraocular movements are intact; no nystagmus or gaze deviation. Pupils are equal and round, and briskly reactive to light. 3 mm in size bilaterally. No otorrhea or rhinorrhea. Oral mucosa is pink and moist. MS: Neck is supple. Normal cervical range of motion without pain or pressure. Cardiovascular: Regular heart rate and rhythm. S1 and S2 present. No peripheral edema. Respiratory: Respirations even and unlabored. Lungs are clear bilaterally. Abdomen: Abdomen is soft, nontender and nondistended with +bowel sounds 4 quadrants. Peripheral vascular: Extremities are warm, though cold at all the toes bilaterally. Normal skin color for race. No peripheral edema. Pedal pulses are intact, 2+ and symmetric. Neurological: See HPI. Lumbar incision is well healed and site is flat. No edema, erythema. Lab Results 02/06 06:17 WBC: 7.9 Hgb: 13.7 Hct: 39.4 Platelet: 176 Neutrophil %: 61.7 Protime: 11.5 PT International Ratio: 1.0 Glucose Level: 128 H Sodium Level: 140 Potassium Level: 3.9 BUN: 16.0 Creatinine Lvl (s): 1.25 H Imaging Results and Diagnostics CT Spine Lumbar w/o Contrast Result Date: February 05, 2025 Verified By: Contributor_systemMICHELLE CLINICAL STATEMENT: IMPRESSION: Unremarkable non-contrast CT of the lumbar spine. Moderate spinal canal stenosis at T12-L1 due to disc osteophyte complex. CT Pelvis w/o Contrast Result Date: February 05, 2025 Verified By: UMAIR PICHARDO MD CLINICAL STATEMENT: IMPRESSION: No acute fracture or dislocation. I have personally reviewed the images of this examination and agree with theresident's findings and interpretation. Assessment/Plan Acute on chronic back pain 49 yo female known to [place] [facility] s/p L4-L5 laminectomy 04/24/[address] Olmstead, for right sided L4-L5 disc bulge with foraminal stenosis causing right sided partial foot drop and numbness fromthe right knee down. Initially did well postoperatively, however symptoms slowly returned. Then also developed new onset left lower extremity weakness and foot drop. She underwent an extensive workup, though according to Dr. Olmstead's interpretation of lumbar MRI, had no lumbar pathology to explain symptoms. Also followed with PCP, orthopedics and neurology. Was found to have very low vitamin B levels, and once corrected, had resolution of her numbness. States had been doing well up until 2 weeks ago when she started having recurrent low back pain radiating into bilateral hips. Was evaluated in neurosurgery office 02/04/2025 with mid to low back pain rating into hips bilaterally. Medication adjustments were made, and outpatient MRI studies of thoracic and lumbar spine were ordered, scheduled 02/20/25. Unfortunately however, on the evening of 02/04 patient slipped on a wet surface, did not fall. She felt a pop in her right hip and developed severe pain radiating to her groin. Had difficulty bearing weight on right lower extremity and ambulating. Presented to [facility] ED 02/05/2025. In the ER, CT pelvis was negative for acute fracture or dislocation. CT lumbar spine showed no acute findings, though indicated moderate spinal canal stenosis T12-L1 due to disc osteophyte complex. Evidence of laminectomy at L4-L5. Admitted to [facility] by hospitalist physicians for further workup. Neurosurgery consulted. Patient reports LBP that radiates bilaterally and into her hips. States feel as if someone is forcibly squeezing her hips and pulling down. +Severe pain in the right hip that radiates to right groin,worsens with hip ROM and RLE motor testing. c/o coldness in feet, worse on the right. Thoracic and lumbar MRIs have been ordered inpatient by primary team. These tests have not yet beencompleted. Neurosurgery will provide further recommendations and input once MRIs have been completed and reviewed by on-call neurosurgeon. Please refer to Dr. Gotti's addendum for additional information, and details regarding neurosurgical input and plan of care Problem List/Past Medical History Ongoing Anxiety Asthma Celiac disease CKD (chronic kidney disease), stage III Claustrophobia Cough Depression, major, recurrent, moderate Diabetes mellitus, type II ([facility]) Encounter for surgical aftercare following surgery of sense organs Environmental allergies Eosinophil adenoma Essential hypertension Fatigue Fibromyalgia Foot drop Foot drop, right Gastrointestinal distress Glasses High triglycerides Hirsutism Hypercholesterolemia Left-sided weakness Metabolic syndrome Migraine Morbid obesity Nausea & vomiting Neurologic disorder Orthostatic hypotension Paresthesia PCOS (polycystic ovarian syndrome) Personality disorder Sleep apnea Spasm Vitamin D deficiency Weakness Historical Diverticulitis Fall Migraine Myocardial infarction Suicidal behavior Procedure/Surgical History Right L4-L5 laminectomy with partial medial facetectomy and foraminotomy: 04/24/24 EGD (esophagogastroduodenoscopic) electrohydraulic lithotripsy of bezoar in stomach: 01/25/24 Colonoscopy: 01/25/24 Bowel: 2015 Fall: 02/25/16 History of vaginal hysterectomy: 05/2012 Stress testing using pharmacologic-induced stress Medications Inpatient acetaminophen, 1000 mg= 2 tab(s), Oral, TID ALPRAZolam, 1 mg= 1 tab(s), Oral, Once, PRN ALPRAZolam, 0.5 mg= 1 tab(s), Oral, BID, PRN aspirin 81 mg oral delayed release tablet, 81 mg= 1 tab(s), Oral, Daily atorvastatin, 10 mg= 1 tab(s), Oral, qDay buPROPion 150 mg/24 hours (XL) oral tablet, extended release, 150 mg= 1 tab(s), Oral, qDay cloNIDine, 0.3 mg= 1 tab(s), Oral, BID Dextrose 50% IV Push, 25 gram(s)= 50 mL, IV Push, AsDirected, PRN DuoNeb, 3 mL, Inhalation, q4hRT, PRN guaiFENesin, 200 mg= 10 mL, Oral, q4h, PRN HumaLOG 100 units/mL subcutaneous solution, Give 0-10 units/dose, Subcutaneous, TIDAC Lantus, 10 unit(s)= 0.1 mL, Subcutaneous (INT), qAM melatonin, 3 mg= 1 tab(s), Oral, qHS, PRN methocarbamol, 500 mg= 1 tab(s), Oral, QID Miralax Powder Packet, 17 gram(s)= 15 mL, Oral, qDay, PRN morphine, 1 mg= 0.5 mL, IV Push, q4h, PRN NS 1,000 mL, 1000 mL, Intravenous omeprazole, 40 mg= 1 cap(s), Oral, qDay oxyCODONE 5 mg oral tablet ( IMMEDIATE release ), 5 mg= 1 tab(s), Oral, q4h, PRN pregabalin 100 mg oral capsule, 100 mg= 2 cap(s), Oral, TID propranolol, 40 mg= 1 tab(s), Oral, qDay QUEtiapine, 50 mg= 1 tab(s), Oral, qHS rosuvastatin, 20 mg= 1 tab(s), Oral, Daily Senokot, 17.2 mg= 2 tab(s), Oral, BID Singulair, 10 mg= 1 tab(s), Oral, qDay Vitamin D3 125 mcg (5000 intl units) oral capsule, 250 mcg= 2 cap(s), Oral, Every other day Zofran, 4 mg= 2 mL, IV Push, q4h, PRN Home acetaminophen 650 mg oral tablet, extended release, 1300 mg= 2 tab(s), Oral, q8h, PRN ALPRAZolam 0.5 mg oral tablet, See Instructions, PRN, 2 refills aspirin 81 mg oral delayed release tablet, 81 mg= 1 tab(s), Oral, Daily atorvastatin 10 mg oral tablet, 10 mg= 1 tab(s), Oral, qDay, 11 refills buPROPion 150 mg/24 hours (XL) oral tablet, extended release, See Instructions, 1 refills cetirizine 10 mg oral capsule, 10 mg= 1 cap(s), Oral, qDay cloNIDine 0.3 mg oral tablet, 0.3 mg= 1 tab(s), Oral, BID, 5 refills levalbuterol tartrate HFA 45mcg/inh inhaler, 1 puff(s), Inhalation, q6hr, PRN, 1 refills Lyrica 50 mg oral capsule, 50 mg= 1 cap(s), Oral, TID, 3 refills MetFORMIN (Eqv-Glucophage XR) 500 mg oral tablet, EXTENDED RELEASE, 1500 mg= 3 tab(s), Oral, qDay, 1 refills methocarbamol 500 mg oral tablet, 500 mg= 1 tab(s), Oral, QID Mounjaro 10 mg/0.5 mL subcutaneous solution, 10 mg, Subcutaneous, qWeek, 1 refills omeprazole 40 mg oral delayed release capsule, 40 mg= 1 cap(s), Oral, qDay ondansetron 4 mg oral tablet, disintegrating, 4 mg= 1 tab(s), Oral, TID, PRN pregabalin 100 mg oral capsule, 100 mg= 1 cap(s), Oral, TID propranolol 40 mg oral tablet, 40 mg= 1 tab(s), Oral, qDay, 3 refills QUEtiapine 50 mg oral tablet, See Instructions, 1 refills rosuvastatin 20 mg oral tablet, 20 mg= 1 tab(s), Oral, Daily, 1 refills Senna, See Instructions Singulair 10 mg oral tablet, 10 mg= 1 tab(s), Oral, qDay, 3 refills spironolactone 50 mg oral tablet, 50 mg= 1 tab(s), Oral, qDay, 1 refills tiZANidine 4 mg oral tablet, 1 tab(s), Oral, q8h, PRN Vitamin D3 250 mcg (10,000 intl units) oral capsule, 250 mcg= 1 cap(s), Oral, Every other day Xopenex 0.63 mg/3 mL inhalation solution, 0.63 mg= 3 mL, Nebulized, TID, PRN, 3 refills Allergies Imitrex(Severe) Hypotension Pork(Severe) anaphylaxis amLODIPine (Mild) lip swelling Actos blurred vision Compazine Anxiety Diflucan Lip swelling Maxalt Hypotension Norflex Anxiety Reglan lisinopril angioedema Social History Smoking Status - 08/28/2018 Never [...] Never (less than 100 in lifetime)., 12/23/2018 Patient states she is and lives at home with her . She is employed for 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 Family History Asthma: Sister and Son. Cancer: Father. Diabetes mellitus: Daughter. Fibromyalgia: Mother and Sister. HTN - Hypertension: Brother. Heart attack: Father. Meniere's disease 11-AUG-2014 16:50:41<$>: Brother. Health Status Family Member(s) Immunizations pneumococcal 23-valent vaccine(Pneumovax: 0.5 mL (03/07/24) SARS-CoV-2 mRNA (tozinameran) vaccine: 0 unknown unit (09/12/22) SARS-CoV-2 mRNA (tozinameran) vaccine: 0.3 unknown unit (02/25/21) SARS-CoV-2 mRNA (tozinameran) vaccine: 0.3 unknown unit (01/28/21) tetanus-diphtheria toxoids: 0 unknown unit (10/01/13) Digitally Signed by PARTHA NUNO on 02/06/2025 03:12 PM Digitally Signed by PARTHA NUNO on 02/06/2025 03:17 PM [id number] History and physical note [facility] Hospitalist History and Physical Date of Admission: patient is being admitted on February 06, 2025 Chief complaint: acute on chronic back pain History of present illness: History is taken from talking with emergency room physician and Alyssa as well as talking with the patient. Patient has a past medical history of diabetes mellitus type II, hypertension, hyperlipidemia, Gerd, peripheral neuropathy, anxiety/depression, migraine headaches, CKD stage III, fibromyalgia, polycystic ovarian syndrome, lumbar laminectomy on April 24, 2024. Patient was last discharged from here on April 26, 2024 from the neurosurgery service and during thatadmission the patient presented with low back pain with sciatica which failed conservative management and therefore she underwent laminectomy. The patient was seen by neurosurgery in clinic on February 04, 2025. Her complaint was having worsening low back pain with radiation down her legs without numbness or tingling or weakness. And she told them that her symptoms have been getting worse over the last several weeks. They did switch her muscle relaxants and increase her Lyrica. They ordered an MRI of the lumbar and thoracic spine with and without contrast that is scheduled for February 20. Patient went to the emergency room last night due to having worsening pain. Patient states that several days ago she stepped on a wet spot causing her to slip and she immediately felt a pop in her right hip area. She did not fall. She states that ever since then she has been having severe low back and right sided hip and groin pain. She reports having difficulty ambulating due to the pain. She denies fevers, chills or night sweats. Since presenting to the emergency room the patient has been afebrile, hemodynamically stable, 97% room air. The following labs and imaging were personally reviewed CT pelvis without contrast did not show any acute fracture or dislocation CT lumbar spine without contrast showed moderate spinal canal stenosis at T 12 through L1 due to disc osteophyte complex. In the emergency room the patient was given Valium multiple doses fentanyl and multiple doses of Dilaudid and still had severe pain therefore they requested her to be admitted here for further evaluation. Past medical history: Angioedema Anxiety Asthma CKD (chronic kidney disease), stage III Celiac disease Claustrophobia Cough Depression, major, recurrent, moderate Diabetes mellitus, type II ([place]) Encounter for surgical aftercare following surgery of sense organs Environmental allergies Eosinophil adenoma Essential hypertension Fatigue Fibromyalgia Foot drop Foot drop, right Gastrointestinal distress Glasses High triglycerides Hirsutism Hypercholesterolemia Hypertension Left-sided weakness Metabolic syndrome Migraine Morbid obesity Nausea & vomiting Neurologic disorder Orthostatic hypotension PCOS (polycystic ovarian syndrome) Palpitations Paresthesia Personality disorder Sleep apnea Spasm Vitamin D deficiency Weakness Right L4-L5 laminectomy with partial medial facetectomy and foraminotomy: 04/24/24 EGD (esophagogastroduodenoscopic) electrohydraulic lithotripsy of bezoar in stomach: 01/25/24 Colonoscopy: 01/25/24 Bowel: 2015 Fall: 02/25/16 History of vaginal hysterectomy: 05/2012 Stress testing using pharmacologic-induced stress Family history: Mother: Fibromyalgia Father: Cancer; Heart attack Sister: Asthma; Fibromyalgia Brother: HTN - Hypertension; Meniere's disease 11-AUG-2014 16:50:41<$> Daughter: Diabetes mellitus Son: Asthma Social history: Denies smoking cigarettes or alcohol consumption Medications: Home Medications (24) Active, medications were not verified by pharmacy at the time of this dictation acetaminophen 650 mg oral tablet, extended release 1,300 mg = 2 tab(s), PRN, Oral, q8h ALPRAZolam 0.5 mg oral tablet See Instructions, PRN aspirin 81 mg oral delayed release tablet 81 mg = 1 tab(s), Oral, Daily atorvastatin 10 mg oral tablet 10 mg = 1 tab(s), Oral, qDay buPROPion 150 mg/24 hours (XL) oral tablet, extended release See Instructions cetirizine 10 mg oral capsule 10 mg = 1 cap(s), Oral, qDay cloNIDine 0.3 mg oral tablet 0.3 mg = 1 tab(s), Oral, BID levalbuterol tartrate HFA 45mcg/inh inhaler 1 puff(s), PRN, Inhalation, q6hr Lyrica 50 mg oral capsule 50 mg = 1 cap(s), Oral, TID MetFORMIN (Eqv-Glucophage XR) 500 mg oral tablet, EXTENDED RELEASE 1,500 mg = 3 tab(s), Oral, qDay methocarbamol 500 mg oral tablet 500 mg = 1 tab(s), Oral, QID Mounjaro 10 mg/0.5 mL subcutaneous solution 10 mg, Subcutaneous, qWeek omeprazole 40 mg oral delayed release capsule 40 mg = 1 cap(s), Oral, qDay ondansetron 4 mg oral tablet, disintegrating 4 mg = 1 tab(s), PRN, Oral, TID pregabalin 100 mg oral capsule 100 mg = 1 cap(s), Oral, TID propranolol 40 mg oral tablet 40 mg = 1 tab(s), Oral, qDay QUEtiapine 50 mg oral tablet See Instructions rosuvastatin 20 mg oral tablet 20 mg = 1 tab(s), Oral, Daily Senna See Instructions Singulair 10 mg oral tablet 10 mg = 1 tab(s), Oral, qDay spironolactone 50 mg oral tablet 50 mg = 1 tab(s), Oral, qDay tiZANidine 4 mg oral tablet 1 tab(s), PRN, Oral, q8h Vitamin D3 250 mcg (10,000 intl units) oral capsule 250 mcg = 1 cap(s), Oral, Every other day Xopenex 0.63 mg/3 mL inhalation solution 0.63 mg = 3 mL, PRN, Nebulized, TID Allergies: Imitrex (Hypotension) amLODIPine (lip swelling) Actos (blurred vision) Compazine (Anxiety) Diflucan (Lip swelling) lisinopril (angioedema) Maxalt (Hypotension) Norflex (Anxiety) Reglan Review of systems: See HPI for pertinent positives and negatives. All other review of systems have been reviewed and they are negative. Vitals Signs(Last 24 hrs)__Last Charted Minimum Maximum Heart Rate81(FEB 05 23:49)81(FEB 05 23:49)81(FEB 05 23:49) DTV856(FEB 05 23:49)128(FEB 05 23:49)H 160(FEB 05 18:45) DBP75(FEB 05 23:49)75(FEB 05 23:49)C 112(FEB 05 18:45) Physical examination: HEENT: No Pallor, No Icterus Cardiac: RRR, No murmur Lungs: CTA, good air entry Abdomen: Soft Non tender Musculoskeletal: complaining of right hip/back pain with any movement Extremities: No edema, good pulses Neurological: Alert, no deficits Skin: No rash, no nodules Labs: as mentioned HPI. Assessment and plan: Patient presents from [place] on February 06, 2025 due to having acute on chronic back pain. Acute on chronic back pain. Patient does require two midnight hospital stay due to having severe back pain with moderate thoracic and lumbar spinal canal stenosis. Will order the MRI of the lumbar and thoracic spine with and without contrast. Symptomatic management. Will consult neurosurgery. NPO with IV fluids in case of procedure. Patient cannot be treated outpatient due to the severity of her pain. Diabetes mellitus type II. Continue home medications. Sliding scale insulin Hypertension. Continue home medications Hyperlipidemia. Continue statin Gerd. Continue Protonix Peripheral neuropathy. Continue home medications Anxiety/depression. Continue home medications Migraine headaches and fibromyalgia. Continue home medications CKD stage III. Will check a BMP Prophylaxis SCD in case of procedure Code status full code Digitally Signed by JEFF MEANS MD on 02/06/2025 04:53 AM [id number] History and physical note [facility] Hospitalist History and Physical Date of Admission: patient is being admitted on February 06, 2025 Chief complaint: acute on chronic back pain History of present illness: History is taken from talking with emergency room physician and [place] as well as talking with the patient. Patient has a past medical history of diabetes mellitus type II, hypertension, hyperlipidemia, Gerd, peripheral neuropathy, anxiety/depression, migraine headaches, CKD stage III, fibromyalgia, polycystic ovarian syndrome, lumbar laminectomy on April 24, 2024. Patient was last discharged from here on April 26, 2024 from the neurosurgery service and during thatadmission the patient presented with low back pain with sciatica which failed conservative management and therefore she underwent laminectomy. The patient was seen by neurosurgery in clinic on February 04, 2025. Her complaint was having worsening low back pain with radiation down her legs without numbness or tingling or weakness. And she told them that her symptoms have been getting worse over the last several weeks. They did switch her muscle relaxants and increase her Lyrica. They ordered an MRI of the lumbar and thoracic spine with and without contrast that is scheduled for February 20. Patient went to the emergency room last night due to having worsening pain. Patient states that several days ago she stepped on a wet spot causing her to slip and she immediately felt a pop in her right hip area. She did not fall. She states that ever since then she has been having severe low back and right sided hip and groin pain. She reports having difficulty ambulating due to the pain. She denies fevers, chills or night sweats. Since presenting to the emergency room the patient has been afebrile, hemodynamically stable, 97% room air. The following labs and imaging were personally reviewed CT pelvis without contrast did not show any acute fracture or dislocation CT lumbar spine without contrast showed moderate spinal canal stenosis at T 12 through L1 due to disc osteophyte complex. In the emergency room the patient was given Valium multiple doses fentanyl and multiple doses of Dilaudid and still had severe pain therefore they requested her to be admitted here for further evaluation. Past medical history: Angioedema Anxiety Asthma CKD (chronic kidney disease), stage III Celiac disease Claustrophobia Cough Depression, major, recurrent, moderate [facility] Encounter for surgical aftercare following surgery of sense organs Environmental allergies Eosinophil adenoma Essential hypertension Fatigue Fibromyalgia Foot drop Foot drop, right Gastrointestinal distress Glasses High triglycerides Hirsutism Hypercholesterolemia Hypertension Left-sided weakness Metabolic syndrome Migraine Morbid obesity Nausea & vomiting Neurologic disorder Orthostatic hypotension PCOS (polycystic ovarian syndrome) Palpitations Paresthesia Personality disorder Sleep apnea Spasm Vitamin D deficiency Weakness Right L4-L5 laminectomy with partial medial facetectomy and foraminotomy: 04/24/24 EGD (esophagogastroduodenoscopic) electrohydraulic lithotripsy of bezoar in stomach: 01/25/24 Colonoscopy: 01/25/24 Bowel: 2015 Fall: 02/25/16 History of vaginal hysterectomy: 05/2012 Stress testing using pharmacologic-induced stress Family history: Mother: Fibromyalgia Father: Cancer; Heart attack Sister: Asthma; Fibromyalgia Brother: HTN - Hypertension; Meniere's disease 11-AUG-2014 16:50:41<$> Daughter: Diabetes mellitus Son: Asthma Social history: Denies smoking cigarettes or alcohol consumption Medications: Home Medications (24) Active, medications were not verified by pharmacy at the time of this dictation acetaminophen 650 mg oral tablet, extended release 1,300 mg = 2 tab(s), PRN, Oral, q8h ALPRAZolam 0.5 mg oral tablet See Instructions, PRN aspirin 81 mg oral delayed release tablet 81 mg = 1 tab(s), Oral, Daily atorvastatin 10 mg oral tablet 10 mg = 1 tab(s), Oral, qDay buPROPion 150 mg/24 hours (XL) oral tablet, extended release See Instructions cetirizine 10 mg oral capsule 10 mg = 1 cap(s), Oral, qDay cloNIDine 0.3 mg oral tablet 0.3 mg = 1 tab(s), Oral, BID levalbuterol tartrate HFA 45mcg/inh inhaler 1 puff(s), PRN, Inhalation, q6hr Lyrica 50 mg oral capsule 50 mg = 1 cap(s), Oral, TID MetFORMIN (Eqv-Glucophage XR) 500 mg oral tablet, EXTENDED RELEASE 1,500 mg = 3 tab(s), Oral, qDay methocarbamol 500 mg oral tablet 500 mg = 1 tab(s), Oral, QID Mounjaro 10 mg/0.5 mL subcutaneous solution 10 mg, Subcutaneous, qWeek omeprazole 40 mg oral delayed release capsule 40 mg = 1 cap(s), Oral, qDay ondansetron 4 mg oral tablet, disintegrating 4 mg = 1 tab(s), PRN, Oral, TID pregabalin 100 mg oral capsule 100 mg = 1 cap(s), Oral, TID propranolol 40 mg oral tablet 40 mg = 1 tab(s), Oral, qDay QUEtiapine 50 mg oral tablet See Instructions rosuvastatin 20 mg oral tablet 20 mg = 1 tab(s), Oral, Daily Senna See Instructions Singulair 10 mg oral tablet 10 mg = 1 tab(s), Oral, qDay spironolactone 50 mg oral tablet 50 mg = 1 tab(s), Oral, qDay tiZANidine 4 mg oral tablet 1 tab(s), PRN, Oral, q8h Vitamin D3 250 mcg (10,000 intl units) oral capsule 250 mcg = 1 cap(s), Oral, Every other day Xopenex 0.63 mg/3 mL inhalation solution 0.63 mg = 3 mL, PRN, Nebulized, TID Allergies: Imitrex (Hypotension) amLODIPine (lip swelling) Actos (blurred vision) Compazine (Anxiety) Diflucan (Lip swelling) lisinopril (angioedema) Maxalt (Hypotension) Norflex (Anxiety) Reglan Review of systems: See HPI for pertinent positives and negatives. All other review of systems have been reviewed and they are negative. Vitals Signs(Last 24 hrs)__Last Charted Minimum Maximum Heart Rate81(FEB 05 23:49)81(FEB 05 23:49)81(FEB 05 23:49) XXP270(FEB 05:49)128(FEB 05 23:49)H 160(FEB 05 18:45) DBP75(FEB 05:49)75(FEB 05:49)C 112(FEB 05 18:45) Physical examination: HEENT: No Pallor, No Icterus Cardiac: RRR, No murmur Lungs: CTA, good air entry Abdomen: Soft Non tender Musculoskeletal: complaining of right hip/back pain with any movement Extremities: No edema, good pulses Neurological: Alert, no deficits Skin: No rash, no nodules Labs: as mentioned HPI. Assessment and plan: Patient presents from [place] on February 06, 2025 due to having acute on chronic back pain. Acute on chronic back pain. Patient does require two midnight hospital stay due to having severe back pain with moderate thoracic and lumbar spinal canal stenosis. Will order the MRI of the lumbar and thoracic spine with and without contrast. Symptomatic management. Will consult neurosurgery. NPO with IV fluids in case of procedure. Patient cannot be treated outpatient due to the severity of her pain. Diabetes mellitus type II. Continue home medications. Sliding scale insulin Hypertension. Continue home medications Hyperlipidemia. Continue statin Gerd. Continue Protonix Peripheral neuropathy. Continue home medications Anxiety/depression. Continue home medications Migraine headaches and fibromyalgia. Continue home medications CKD stage III. Will check a BMP Prophylaxis SCD in case of procedure Code status full code Digitally Signed by JEFF MEANS MD on 02/06/2025 04:53 AM [id number] History and physical note [facility] Hospitalist History and Physical Date of Admission: patient is being admitted on February 06, 2025 Chief complaint: acute on chronic back pain History of present illness: History is taken from talking with emergency room physician and [place] as well as talking with the patient. Patient has a past medical history of diabetes mellitus type II, hypertension, hyperlipidemia, Gerd, peripheral neuropathy, anxiety/depression, migraine headaches, CKD stage III, fibromyalgia, polycystic ovarian syndrome, lumbar laminectomy on April 24, 2024. Patient was last discharged from here on April 26, 2024 from the neurosurgery service and during thatadmission the patient presented with low back pain with sciatica which failed conservative management and therefore she underwent laminectomy. The patient was seen by neurosurgery in clinic on February 04, 2025. Her complaint was having worsening low back pain with radiation down her legs without numbness or tingling or weakness. And she told them that her symptoms have been getting worse over the last several weeks. They did switch her muscle relaxants and increase her Lyrica. They ordered an MRI of the lumbar and thoracic spine with and without contrast that is scheduled for February 20. Patient went to the emergency room last night due to having worsening pain. Patient states that several days ago she stepped on a wet spot causing her to slip and she immediately felt a pop in her right hip area. She did not fall. She states that ever since then she has been having severe low back and right sided hip and groin pain. She reports having difficulty ambulating due to the pain. She denies fevers, chills or night sweats. Since presenting to the emergency room the patient has been afebrile, hemodynamically stable, 97% room air. The following labs and imaging were personally reviewed CT pelvis without contrast did not show any acute fracture or dislocation CT lumbar spine without contrast showed moderate spinal canal stenosis at T 12 through L1 due to disc osteophyte complex. In the emergency room the patient was given Valium multiple doses fentanyl and multiple doses of Dilaudid and still had severe pain therefore they requested her to be admitted here for further evaluation. Past medical history: Angioedema Anxiety Asthma CKD (chronic kidney disease), stage III Celiac disease Claustrophobia Cough Depression, major, recurrent, moderate Diabetes mellitus, type II ([place]) Encounter for surgical aftercare following surgery of sense organs Environmental allergies Eosinophil adenoma Essential hypertension Fatigue Fibromyalgia Foot drop Foot drop, right Gastrointestinal distress Glasses High triglycerides Hirsutism Hypercholesterolemia Hypertension Left-sided weakness Metabolic syndrome Migraine Morbid obesity Nausea & vomiting Neurologic disorder Orthostatic hypotension PCOS (polycystic ovarian syndrome) Palpitations Paresthesia Personality disorder Sleep apnea Spasm Vitamin D deficiency Weakness Right L4-L5 laminectomy with partial medial facetectomy and foraminotomy: 04/24/24 EGD (esophagogastroduodenoscopic) electrohydraulic lithotripsy of bezoar in stomach: 01/25/24 Colonoscopy: 01/25/24 Bowel: 2015 Fall: 02/25/16 History of vaginal hysterectomy: 05/2012 Stress testing using pharmacologic-induced stress Family history: Mother: Fibromyalgia Father: Cancer; Heart attack Sister: Asthma; Fibromyalgia Brother: HTN - Hypertension; Meniere's disease 11-AUG-2014 16:50:41<$> Daughter: Diabetes mellitus Son: Asthma Social history: Denies smoking cigarettes or alcohol consumption Medications: Home Medications (24) Active, medications were not verified by pharmacy at the time of this dictation acetaminophen 650 mg oral tablet, extended release 1,300 mg = 2 tab(s), PRN, Oral, q8h ALPRAZolam 0.5 mg oral tablet See Instructions, PRN aspirin 81 mg oral delayed release tablet 81 mg = 1 tab(s), Oral, Daily atorvastatin 10 mg oral tablet 10 mg = 1 tab(s), Oral, qDay buPROPion 150 mg/24 hours (XL) oral tablet, extended release See Instructions cetirizine 10 mg oral capsule 10 mg = 1 cap(s), Oral, qDay cloNIDine 0.3 mg oral tablet 0.3 mg = 1 tab(s), Oral, BID levalbuterol tartrate HFA 45mcg/inh inhaler 1 puff(s), PRN, Inhalation, q6hr Lyrica 50 mg oral capsule 50 mg = 1 cap(s), Oral, TID MetFORMIN (Eqv-Glucophage XR) 500 mg oral tablet, EXTENDED RELEASE 1,500 mg = 3 tab(s), Oral, qDay methocarbamol 500 mg oral tablet 500 mg = 1 tab(s), Oral, QID Mounjaro 10 mg/0.5 mL subcutaneous solution 10 mg, Subcutaneous, qWeek omeprazole 40 mg oral delayed release capsule 40 mg = 1 cap(s), Oral, qDay ondansetron 4 mg oral tablet, disintegrating 4 mg = 1 tab(s), PRN, Oral, TID pregabalin 100 mg oral capsule 100 mg = 1 cap(s), Oral, TID propranolol 40 mg oral tablet 40 mg = 1 tab(s), Oral, qDay QUEtiapine 50 mg oral tablet See Instructions rosuvastatin 20 mg oral tablet 20 mg = 1 tab(s), Oral, Daily Senna See Instructions Singulair 10 mg oral tablet 10 mg = 1 tab(s), Oral, qDay spironolactone 50 mg oral tablet 50 mg = 1 tab(s), Oral, qDay tiZANidine 4 mg oral tablet 1 tab(s), PRN, Oral, q8h Vitamin D3 250 mcg (10,000 intl units) oral capsule 250 mcg = 1 cap(s), Oral, Every other day Xopenex 0.63 mg/3 mL inhalation solution 0.63 mg = 3 mL, PRN, Nebulized, TID Allergies: Imitrex (Hypotension) amLODIPine (lip swelling) Actos (blurred vision) Compazine (Anxiety) Diflucan (Lip swelling) lisinopril (angioedema) Maxalt (Hypotension) Norflex (Anxiety) Reglan Review of systems: See HPI for pertinent positives and negatives. All other review of systems have been reviewed and they are negative. Vitals Signs(Last 24 hrs)__Last Charted Minimum Maximum Heart Rate81(FEB 05 23:49)81(FEB 05 23:49)81(FEB 05 23:49) MED276(FEB 05 23:49)128(FEB 05 23:49)H 160(FEB 05 18:45) DBP75(FEB 05 23:49)75(FEB 05 23:49)C 112(FEB 05 18:45) Physical examination: HEENT: No Pallor, No Icterus Cardiac: RRR, No murmur Lungs: CTA, good air entry Abdomen: Soft Non tender Musculoskeletal: complaining of right hip/back pain with any movement Extremities: No edema, good pulses Neurological: Alert, no deficits Skin: No rash, no nodules Labs: as mentioned HPI. Assessment and plan: Patient presents from [place] on February 06, 2025 due to having acute on chronic back pain. Acute on chronic back pain. Patient does require two midnight hospital stay due to having severe back pain with moderate thoracic and lumbar spinal canal stenosis. Will order the MRI of the lumbar and thoracic spine with and without contrast. Symptomatic management. Will consult neurosurgery. NPO with IV fluids in case of procedure. Patient cannot be treated outpatient due to the severity of her pain. Diabetes mellitus type II. Continue home medications. Sliding scale insulin Hypertension. Continue home medications Hyperlipidemia. Continue statin Gerd. Continue Protonix Peripheral neuropathy. Continue home medications Anxiety/depression. Continue home medications Migraine headaches and fibromyalgia. Continue home medications CKD stage III. Will check a BMP Prophylaxis SCD in case of procedure Code status full code Digitally Signed by JEFF MEANS MD on 02/06/2025 04:53 AM [id number] Note* Exam Date Time Procedure Performing Provider Status 02/05/25 7:[address] Spine Lumbar w/o Contrast Contributor_system, [employer]; Auth (Verified) [id number] ORIGINAL EXAMINATION: CT OF THE LUMBAR SPINE WITHOUT CONTRAST 02/05/2025 TECHNIQUE: CT of the lumbar spine was performed without the administration of intravenous contrast. Multiplanar reformatted images are provided for review. Adjustment of mA and/or kV according to patient size was utilized. Automated exposure control, iterative reconstruction, and/or weight based adjustment of the mA/kV was utilized to reduce the radiation dose to as low as reasonably achievable. COMPARISON: MRI lumbar spine July 03, 2024 HISTORY: ORDERING SYSTEM PROVIDED HISTORY: Reason for Exam: low back pain, laminectomy, slip and fall and heard pop in rt hip back pain, fall FINDINGS: BONES/ALIGNMENT: There is normal alignment of the spine. The vertebral body heights are maintained. No osseous destructive lesion is seen. Laminectomy at L4-L5. DEGENERATIVE CHANGES: No significant degenerative changes of the lumbar spine. Decrease within each of the disc space heights. Moderate stenosis at T12-L1. SOFT TISSUES/RETROPERITONEUM: No paraspinal mass is seen. IMPRESSION: Unremarkable non-contrast CT of the lumbar spine. Moderate spinal canal stenosis at T12-L1 due to disc osteophyte complex. Interpreted by: Krista Eagle MD Preliminary Report By: Krista Eagle MD Electronically signed By Krista Eagle MD Dictated Date: 02/05/2025 8:11:05 PM Prelim Date: 02/05/2025 8:12:33 PM Sign Date: 02/05/2025 8:12:33 PM Ordering Provider: LUCILLE VILLANUEVA [id number] Note* Exam Date Time Procedure Performing Provider Status 02/05/25 7:[address] Pelvis w/o Contrast UMAIR PICHARDO MD; Auth (Verified) [id number] ORIGINAL EXAMINATION: CT OF THE PELVIS WITHOUT CONTRAST 02/05/2025 7:49 pm TECHNIQUE: CT of the pelvis was performed without the administration of intravenous contrast. Multiplanar reformatted images are provided for review. Adjustment of mA and/or kV according to patient size was utilized. Automated exposure control, iterative reconstruction, and/or weight based adjustment of the mA/kV was utilized to reduce the radiation dose to as low as reasonably achievable. COMPARISON: None. HISTORY ORDERING SYSTEM PROVIDED HISTORY: Reason for Exam: low back pain, laminectomy, slip and fall and heard pop in rt hip slip and fall, right posterior hip pain, radiates to groin FINDINGS: Bones: No evidence of acute fracture or dislocation. No aggressive appearing osseous abnormality or periostitis. Soft Tissue: No significant soft tissue edema or fluid collections. No acute findings in the imaged abdomen and pelvis. Postsurgical changes are noted to the rectosigmoid colon. Joint: No significant degenerative changes. No osseous erosions. Refer to same day CT lumbar spine for evaluation of the lumbar spine. No acute findings in the imaged lower lumbar spine. IMPRESSION: No acute fracture or dislocation. I have personally reviewed the images of this examination and agree with the resident's findings and interpretation. Interpreted by: Umair Pichardo Preliminary Report By: Leti Snyder Electronically signed By Umair Pichardo Dictated Date: 02/05/2025 8:02:18 PM Prelim Date: 02/05/2025 8:10:50 PM Sign Date: 02/05/2025 8:18:18 PM Ordering Provider: LUCILLE VILLANUEVA [id number] NoteHNO ID: [id number] Author: NOTE, INTERFACE, ? Service: ? Author Type: ? Type: Progress Notes Filed: 12/27/2024 02:48 Note Text: Epic Scheduled Downtime: 12/27/2024 1:00:00 AM to 12/27/2024 2:36:00 [facility]12-10-2024 Telephone encounter Note* Telephone Encounter - Paola Blakely - 10/28/2024 11:45 AM EST We have been unable to reach your patient to schedule their testing. Test Name: nct/emg 1st Attempt: 10/24 2nd Attempt: 10/27 3rd attempt; 10/28 [id number] Miscellaneous Notes* Telephone Encounter - Paola Blakely - 10/28/2024 11:45 AM EST We have been unable to reach your patient to schedule their testing. Test Name: nct/emg 1st Attempt: 10/24 2nd Attempt: 10/27 3rd attempt; 10/28 documented in this encounterSPaulding County [id number] History of Present illness Narrative* Shamar Roper MD - 10/23/2024 1:20 PM EST Images from the original note were not included. [facility] - [address] [facility] [address] Dept: [phone] Dept Loc: [phone] Shamar Roper MD Thank you for your kind request for a neurological consultation on this patient. CHIEF COMPLAINT: Chief Complaint Patient presents with New Patient Numbness HISTORY OF PRESENT ILLNESS: The patient is a 49 y.o. person who presents with various complaints. My PCP thinks I have MS. She reports that her problems began in November with falls. She reports that some of these events wouldbe dizziness, other times she will feel weak in the legs. She continues to have weakness in the legs now and they suddenly give out. Later she reports that she started having issues with numbness in the upper right leg. She had this from the right hip to the knee, mostly latera, but some posterior.Nothing she does makes that numbness worse. She later had extension of the numbness from the right knee to the right foot on the top and bottom. No activity helps or hurts this. She also has right foot drop. She reports that she is having trouble learning. Her mother told her to bring up cognitive changes.She is losing her train of thought. Many of her issues started after marriage in July. She reports that if she holds something in her hands. She reports that the numbness involves the hands and finger tips and around the elbows. Putting down the ittem helps. She reports that it makes it difficult to perform using her hair curler. She reports that she had spine surgery on her lumbar spine in April of this year and that did not help. Past Medical History: has a past medical history of Anxiety, Asthma, Hypertension, and Lupus. Past Surgical History: has no past surgical history on file. Medications: Current Outpatient Medications: alpha tocopherol (Vitamin E) 100 units capsule, Take 100 Units by mouth daily., Disp: , Rfl: ALPRAZolam (Niravam) 0.5 MG disintegrating tablet, Take 0.5 mg by mouth Nightly as needed for anxiety., Disp: , Rfl: aspirin 81 MG EC tablet, Take 81 mg by mouth daily., Disp: , Rfl: atorvastatin (Lipitor) 10 MG tablet, Take 10 mg by mouth daily., Disp: , Rfl: budesonide EC (Entocort EC) 3 MG 24 hr capsule, Take 6 mg by mouth every morning., Disp: , Rfl: buPROPion SR (Wellbutrin SR) 150 MG 12 hr tablet, Take by mouth 2 times daily. Do not crush, chew, or split., Disp: , Rfl: cetirizine (ZyrTEC) 10 MG chewable tablet, Chew daily., Disp: , Rfl: Cholecalciferol (VITAMIN D-3 PO), Take 250 mcg by mouth., Disp: , Rfl: Docusate Calcium (STOOL SOFTENER PO), Take by mouth., Disp: , Rfl: levalbuterol (Xopenex) 0.63 MG/3ML nebulizer solution, Take 0.63 mg by nebulization three times daily., Disp: , Rfl: levalbuterol (Xopenex) 45 MCG/ACT inhaler, Inhale., Disp: , Rfl: metFORMIN (Glucophage) 500 MG tablet, Take 500 mg by mouth daily. 3 tabs at night, Disp: , Rfl: montelukast (Singulair) 10 MG tablet, Take by mouth., Disp: , Rfl: omeprazole (PriLOSEC) [address] capsule, Take 40 mg by mouth every morning (before breakfast). Do not crush or chew., Disp: , Rfl: ondansetron (Zofran) 4 MG tablet, Take by mouth., Disp: , Rfl: pregabalin (Lyrica) 50 MG capsule, Take 50 mg by mouth 3 times daily., Disp: , Rfl: QUEtiapine (SEROquel) 50 MG tablet, Take 50 mg by mouth Nightly., Disp: , Rfl: rosuvastatin (Crestor) 20 MG tablet, Take 20 mg by mouth daily., Disp: , Rfl: spironolactone (Aldactone) 50 MG tablet, Take 50 mg by mouth daily., Disp: , Rfl: Tirzepatide (Mounjaro) 7.5 MG/0.5ML solution auto-injector, Inject under the skin., Disp: , Rfl: Allergies: Sumatriptan, Amlodipine, Lisinopril, Metoclopramide, Orphenadrine, Pioglitazone, Prochlorperazine, Rizatriptan, Fluconazole, Lactose, and Magnesium sulfate Social History: Social History Socioeconomic History Marital status: Single Spouse name: Not on file Number of children: Not on file Years of education: Not on file Highest education level: Not on file Occupational History Not on file Tobacco Use Smoking status: Never Smokeless tobacco: Not on file Substance and Sexual Activity Alcohol use: Never Drug use: Never Sexual activity: Not on file Other Topics Concern Not on file Social History Narrative Not on file Social Drivers of Health Financial Resource Strain: Not on file Food Insecurity: Not on file Transportation Needs: Not on file Physical Activity: Not on file Stress: Not on file Social Connections: Not on file Intimate Partner Violence: Not on file Housing Stability: Not on file Family History: Family History Problem Relation Name Age of Onset Multiple sclerosis Other son REVIEW OF SYSTEMS: Review of Systems Constitutional: Negative for appetite change, chills, diaphoresis, fever and unexpected weight change. HENT: Negative for dental problem and mouth sores. Eyes: Negative for discharge and itching. Respiratory: Negative for chest tightness. Cardiovascular: Negative for chest pain and leg swelling. Gastrointestinal: Negative for rectal pain and vomiting. Endocrine: Negative for polydipsia, polyphagia and polyuria. Genitourinary: Negative for decreased urine volume, flank pain and genital sores. Musculoskeletal: Negative for arthralgias. Skin: Negative for color change. Allergic/Immunologic: Negative for food allergies and immunocompromised state. Neurological: Positive for weakness and numbness. Hematological: Negative for adenopathy. Does not bruise/bleed easily. Psychiatric/Behavioral: Negative for agitation, behavioral problems, decreased concentration, sleepdisturbance and suicidal ideas. PHYSICAL EXAM: Vitals: BP 128/89 (BP Location: Right arm, Patient Position: Sitting, BP Cuff Size: Large adult) Pulse 89 Ht 5' 8 (1.727 m) Wt 263 lb 6.4 oz (119 kg) BMI 40.05 kg/m General Appearance: Patient is in no apparent distress. Head is normocephalic, atraumatic Cardiovascular: Regular rate and rhythm. No heart murmurs. No carotid bruit Neurologic: Mentation: Alert and oriented x 3 to person, [address] but not city and month/year. Speech and Language: Speech and language normal Concentration and Attention: Concentration abnormal Memory: Memory 2/3 immed, 2/3 short (did not get the third one with a clue) Having to go through all of her Bea scans limited time for cog testing today Fund of Knowledge: Fund of knowledge normal Cranial Nerves: II, III, IV, V, , VII, VIII, IX, X, XI, XII tested and were intact including fundoscopic exam (optic discs) and visual field to confrontation. Motor: Strength:Exam difficult because of give-way weakness(relaxing of the muscle the moment force is applies rather than muscle being weak). She Had this give-way weakness in the right shoulder elevators and deltoids, but did better once I put a finger on the muscle being tested and encouraged participatioin. She is weak in the leg 3/5 in hip flexors and knee extensors. And not even flexing the right ankle dorsiflexors, 2/5 on left ADF Alternating Movements: Normal Cogwheel Rigidity: None Tone: Tone is normal Tremor / Involuntary Movements: None Deep Tendon Reflexes: 1 out of 4 symmetrical in all four limbs. Sensory: Decreased in a circumferential way around both ankles. Decreased in the hands more near the pinky finger. Coordination: Normal coordination upper and lower extremities Gait and Station: Station is normal. Gait is abnormal Has to use her walker. Right foot drop. Weakness on lifting up her knees. DATA CBC: Lab Results Component Value Date WBC 6.2 04/21/2020 RBC 4.73 04/21/2020 HGB 14.4 04/21/2020 MCV 88.8 04/21/2020 MCH 30.4 04/21/2020 MCHC 34.2 04/21/2020 RDW 13.8 04/21/2020 MPV 8.0 04/21/2020 CMP: Lab Results Component Value Date NA 137 04/21/2020 K 4.1 04/21/2020 CL 103 04/21/2020 CO2 24 04/21/2020 BUN 17 04/21/2020 CREATININE 0.75 04/21/2020 GLUCOSE 200 (H) 04/21/2020 PROT 7.4 04/21/2020 CALCIUM 9.2 04/21/2020 BILITOT 0.5 04/21/2020 ALKPHOS 135 (H) 04/21/2020 AST 31 04/21/2020 BMP: Lab Results Component Value Date NA 137 04/21/2020 K 4.1 04/21/2020 CL 103 04/21/2020 CO2 24 04/21/2020 BUN 17 04/21/2020 CREATININE 0.75 04/21/2020 CALCIUM 9.2 04/21/2020 GLUCOSE 200 (H) 04/21/2020 PT/INR: No results found for: PROTIME, INR PTT: No results found for: APTT, PTT[APTT} FLP: No results found for: CHLPL, TRIG, HDL, LDLCALC, LDLDIRECT TSH: No results found for: TSH VITAMIN B12: No results found for: JYFXDOAN27 FERRITIN: No results found for: FERRITIN ---- No results found for: PHENYTOIN, PHENOBARB, VALPROATE, CBMZ No components found for: TOPIRANo results found for: OXCARBAZE, OXCARB @LASTAPPOINTMENTTHISPROV@ ECG 12 lead [facility] [employer] [facility] Test Date: 2020-04-21 Pat Name: April Rosa Department: 41 Room: 16 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 TECHNIQUE: Axial CT images from skull base to vertex without IV contrast. This exam was performed according to our departmental dose optimization program, and includes the following measures where applicable: automated exposure control, adjustment of the mAs and/or kVp according to patient size and/or exam, and an iterative reconstruction algorithm. COMPARISON: 02/12/2019 FINDINGS: There is no acute intracranial hemorrhage, mass, mass effect or abnormal extra-axial fluid collection. There is no CT evidence of acute infarct. The ventricles are normal. Empty sella noted. Hypodensity posteriorly bilaterally is favored to be artifact related to this particular scanner. The skull base and calvarium demonstrate no abnormality. There is mild paranasal sinus mucosal thickening. Included mastoid air cells are clear. IMPRESSION: 1. No acute intracranial abnormality. 2. Empty sella which may be an incidental finding or seen in intracranial hypertension. Interpreted By: Corry Guevara MD Preliminary Report By: Corry Guevara MD Electronically Signed By: Corry Guevara MD Dictated Date: 04/19/2020 10:51:[address] HEAD OR BRAIN W/O CONTRAST CLINICAL STATEMENT: dizziness TECHNIQUE: Axial CT images from skull base to vertex without IV contrast. This exam was performed according to our departmental dose optimization program, and includes the following measures where applicable: automated exposure control, adjustment of the mAs and/or kVp according to patient size and/or exam, and an iterative reconstruction algorithm. COMPARISON: CT head 04/19/2020 FINDINGS: There is no intracranial hemorrhage, mass, mass effect or abnormal extra-axial fluid collection. No evidence of an acute territorial infarct is identified. The ventricles and cisternal spaces are within normal limits in size and configuration for the patient's age. The skull base, calvarium, and orbits demonstrate no acute abnormality. The included paranasal sinuses and mastoid air cells are predominantly clear. IMPRESSION: No acute intracranial abnormality is identified. I have personally reviewed the images of this examination and agree with the resident's findings and interpretation. Interpreted By: Bronson Russell MD Preliminary Report By: Cj Perales MD Electronically Signed By: Bronson Russell MD Dictated Date: 07/16/2020 7:51:[address] ANGIOGRAPHY NECK W/CONTRAST TECHNIQUE: Images were obtained with IV contrast. Multiplanar reformatted and three dimensional volume rendered images were generated on an independent workstation. This exam was performed according to our departmental dose optimization program, and includes the following measures where applicable: automated exposure control, adjustment of the mAs and/or kVp according to patient size and/or exam,and an iterative reconstruction algorithm. Multiplanar reformatted and shaded-surface display and three dimensional volume rendered images were generated. Where applicable, evaluation of ICA stenosiswas performed using the site of greatest stenosis is compared to the diameter of the ICA distal to the stenosis at a point where the ICA estes become parallel. CLINICAL STATEMENT: TIA. C/O HEADACHE AND DIZZINESS X FEW DAYS , TIA COMPARISON: None FINDINGS: The vertebral arteries are patent bilaterally with no significant focal area of narrowing. The RIGHT vertebral artery is dominant. Bilaterally, the common and internal carotid arteries are patent and normal in caliber with no significant focal area of stenotic narrowing identified. No additional contributory abnormality seen. IMPRESSION: No hemodynamically significant ICA stenosis is visible on this exam. Interpreted By: Bronson Patel MD Preliminary Report By: Bronson Patel MD Electronically Signed By: Bronson Patel MD Dictated Date: 07/17/2020 1:39:30 PM Prelim Date: 07/17/2020 1:39:[address] ANGIOGRAPHY HEAD W/ CONTRAST View Image ORIGINAL CT ANGIOGRAPHY HEAD W/ CONTRAST TECHNIQUE: Images were obtained with IV contrast. Multiplanar reformatted and three dimensional volume rendered images were generated on an independent workstation. This exam was performed according to our departmental dose optimization program, and includes the following measures where applicable: automated exposure control, adjustment of the mAs and/or kVp according to patient size and/or exam,and an iterative reconstruction algorithm. CLINICAL STATEMENT: TIA. C/O HEADACHE AND DIZZINESS X FEW DAYS , TIA COMPARISON: CT scan 07/16/2020 FINDINGS: The vessels about the [place] are patent and normal in caliber with no significant focal area of narrowing seen. There is no evidence for aneurysm about the [place]. No additional contributory finding seen. IMPRESSION: No evidence for large vessel occlusion on this exam. Interpreted By: Bronson Patel MD Preliminary Report By: Bronson Patel MD Electronically Signed By: Bronson Patel MD Dictated Date: 07/17/2020 1:32:20 PM Prelim Date: 07/17/2020 1:32:[address] HEAD OR BRAIN W/O CONTRAST CLINICAL STATEMENT: dizziness, syncope, CEBALLOS. TECHNIQUE: Axial CT images from skull base to vertex without IV contrast. This exam was performed according to our departmental dose optimization program, and includes the following measures where applicable: automated exposure control, adjustment of the mAs and/or kVp according to patient size and/or exam, and an iterative reconstruction algorithm. COMPARISON: CT head 07/16/2020. FINDINGS: There is no acute intracranial hemorrhage, mass, mass effect or abnormal extra-axial fluid collection. There is no CT evidence of acute infarct. The ventricles are normal. Incidentally noted is an empty sella. The skull base and calvarium demonstrate no abnormality. Mild mucosal thickening of the ethmoid aircells. Included mastoid air cells are clear. IMPRESSION: No acute intracranial abnormality. I have personally reviewed the images of this examination and agree with the resident's findings and interpretation. Interpreted By: Shamar Sullivan MD Preliminary Report By: Elda Waldron Electronically Signed By: Shamar Sullivan MD Dictated Date: 04/01/2021 11:00:02 AM Prelim Date: 04/01/2021 11:04:16 AM MRI OF THE BRAIN WITHOUT CONTRAST 01/17/2023 [...] intracranial abnormality. Mild chronic microvascular angiopathy. CT OF THE HEAD WITHOUT CONTRAST 01/17/2023 [...] IMPRESSION: No acute intracranial abnormality. Interpreted by: Kade Watson Preliminary Report By: Kade Watson Electronically signed By Kade Watson Dictated Date: 01/17/2023 4:32:30 PM Prelim Date: 01/17/2023 4:36:00 PM CTA OF THE NECK 01/17/2023 2:41 am [...] resident's findings and interpretation. Interpreted by: Pelon Samuel MD Preliminary Report By: Johnnie Sepulveda Electronically signed By Pelon Samuel MD Dictated Date: 01/17/2023 2:50:04 AM Prelim Date: 01/17/2023 2:54:43 AM Sign Date: 01/17/2023 3:20:39 AM CTA OF THE HEAD WITH CONTRAST 01/17/2023 [...] resident's findings and interpretation. Interpreted by: Pelon Samuel MD Preliminary Report By: Johnnie Sepulveda Electronically signed By Pelon Samuel MD Dictated Date: 01/17/2023 2:43:28 AM Prelim Date: 01/17/2023 2:49:39 AM Sign Date: 01/17/2023 3:18:[address] OF THE HEAD WITHOUT CONTRAST 03/22/2024 2:24 am TECHNIQUE: CT of the head was performed without the administration of intravenous contrast. Automated exposure control, iterative reconstruction, and/or weight based adjustment of the mA/kV was utilized to reduce the radiation dose to as low as reasonably achievable. COMPARISON: CT head on 01/17/2023 HISTORY: ORDERING SYSTEM PROVIDED HISTORY: Reason for Exam: PATIENT STATES SHE FELL DOWN 3 STEPS AND HIT HER HEAD, -LOC, -THINNERS, C/O RIGHT ORTHODOXY PAIN AND HEADACHE INJURY FINDINGS: BRAIN/VENTRICLES: There is no acute intracranial hemorrhage, mass effect or midline shift. No abnormal extra-axial fluid collection. The carreno-white differentiation is maintained without evidence of an acute infarct. There is no evidence of hydrocephalus. ORBITS: The visualized portion of the orbits demonstrate no acute abnormality. SINUSES: The visualized paranasal sinuses and mastoid air cells demonstrate no acute abnormality. SOFT TISSUES/SKULL: No acute abnormality of the visualized skull or soft tissues. 1.8 cm partly calcified left scalp nodule is stable. IMPRESSION: No acute intracranial abnormality. Interpreted by: eRza Perea MD Preliminary Report By: Reza Perea MD Electronically signed By Reza Perea MD Dictated Date: 03/22/2024 2:25:55 AM Prelim Date: 03/22/2024 2:29:29 AM Sign Date: 03/22/2024 2:29:[address] OF THE LUMBAR SPINE WITHOUT CONTRAST 04/21/2024 TECHNIQUE: CT of the lumbar spine was performed without the administration of intravenous contrast. Multiplanar reformatted images are provided for review. Adjustment of mA and/or kV according to patient size was utilized. Automated exposure control, iterative reconstruction, and/or weight based adjustment of the mA/kV was utilized to reduce the radiation dose to as low as reasonably achievable. COMPARISON: Lumbar spine x-ray on 03/22/2024. CT abdomen and pelvis on 01/27/2024. HISTORY: ORDERING SYSTEM PROVIDED HISTORY: Reason for Exam: PT C/O LOWER BACK PAIN WITH RADIATING PAIN DOWN RIGHT LEG, NO SURGICAL HX INJURY FINDINGS: BONES/ALIGNMENT: The lumbar spine alignment is normal. The vertebral bodies are normal in height with no fracture. DEGENERATIVE CHANGES: The T12-L1 intervertebral disc demonstrates mild narrowing. There is prominent osteophytic spur formation anteriorly. There is asymmetric focal disc protrusion posterolaterally to the left. There is calcification of the margins of the disc appears chronic. This creates narrowing of the left neural foramen and mild central canal stenosis. The L4-L5 intervertebral disc demonstrates moderate central bulging without focal disc protrusion. There is mild neural foraminal narrowing bilaterally at L4-L5. Other disc levels show no significant abnormality. Posterior elements are intact. SOFT TISSUES/RETROPERITONEUM: No paraspinal mass is seen. There is no retroperitoneal mass or lymph node enlargement. Abdominal aorta is nonaneurysmal. IMPRESSION: 1. No acute osseous abnormality of the lumbar spine. 2. Focal disc protrusion T12-L1 with left-sided neural foraminal narrowing and mild central canal stenosis. 3. Central bulging L4-L5 without focal disc protrusion. 4. Mild bilateral L4-L5 neural foraminal narrowing. Interpreted by: Reza Perea MD Preliminary Report By: Reza Perea MD Electronically signed By Reza Perea MD Dictated Date: 04/21/2024 7:40:08 AM Prelim Date: 04/21/2024 7:45:05 AM Sign Date: 04/21/2024 7:45:05 AM MRI SPINE LUMBAR W/ + W/O CONTRAST View Image ORIGINAL INDICATION:ORDERING SYSTEM PROVIDED HISTORY: Reason for Exam: R low back pain, incontinence, R leg weakness TECHNIQUE: MRI of the lumbar spine was performed without and with the administration of intravenous contrast, according to standard protocol. COMPARISON: CT lumbar spine 04/21/2024, CT abdomen pelvis 11/10/2020 FINDINGS: ALIGNMENT: Trace degenerative anterolisthesis of L4 on L5. VERTEBRAE: No evidence of an acute/recent fracture. Anterior bridging degenerative enthesopathy changes involve T12-L1. Moderately prominent anterior spinal changes are at L1-L2 are also noted. Modic type 2 endplate degenerative changes are present at the T12-L1 level. 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 A 10 mm hyperintense focus on T1 and T2 weighted images is located in the left iliac wing not conspicuous on the examinations of reference. DISCS: Widespread disc desiccation. Mild disc height loss involves L4-5. CONUS MEDULLARIS AND CAUDA EQUINA: The conus medullaris terminates at L1-L2 and is normal. The cauda equina are unremarkable. Variation fatty infiltration of the filum terminale. PARAVERTEBRAL SOFT TISSUES: Mild atrophy of the posterior paraspinous muscles more pronounced on the right at L4 and L5. SPINAL CANAL: Overall reduced caliber of the spinal canal on the basis of congenitally short pedicles. EVALUATION OF INDIVIDUAL LEVELS DEMONSTRATES: T12-L1: A left subarticular disc extrusion effaces the ventral and left lateral spinal cord causing [id number] central canal stenosis without foraminal narrowing. L1-2: No disc herniation, central canal stenosis or foraminal narrowing. Mild bilateral facet arthrosis with a small left facet effusion. L2-3: Small circumferential disc bulge and mild facet arthrosis causes mild bilateral foraminal narrowing without central canal stenosis. A small left facet joint effusion is noted. L3-4: Trace diffuse bulge of the posterior annulus and mild facet arthrosis without disc herniation, central canal stenosis or foraminal narrowing. L4-5: Diffuse posterior disc bulge most pronounced to the right with a superimposed right subarticular foraminal and extraforaminal disc herniation, small canal, ligamentum flavum hypertrophy and facet arthrosis results in impingement of the descending right L5 nerve root (axial T2 image 13 series 6), moderate right and mild left foraminal narrowing without central canal stenosis. Enhancement within the right foramen and subarticular zone is noted and must be correlated with any surgical history. Disc may contact the exited bilateral L4 nerve roots. L5-S1: Small diffuse posterior disc bulge, disc unroofing associated with an anterolisthesis L5 on S1, and moderate bilateral facet arthrosis causes mild bilateral foraminal narrowing without central canal stenosis. LIMITED EVALUATION OF UPPER SACRUM AND SACROILIAC JOINTS: DEGENERATIVE CHANGES of the bilateral sacroiliac joints more pronounced on the left. IMPRESSION: 1. Mild to moderate central canal stenosis at T12-L1. 2. Impingement of the descending right L5 and possibly the bilateral exited L4 nerve roots at L4-5. 3. Enhancement within the right L4-5 subarticular and foraminal zones. Correlate with any prior surgical history or interventional procedures. 4. Probable benign 10 mm hyperintense focus on T1 and T2 weighted images within the left iliac crest not conspicuous on CT. Interpreted by: Marco A Ogden MD Preliminary Report By: Marco A Ogden MD Electronically signed By Marco A Ogden MD Dictated Date: 04/23/2024 2:21:49 PM Prelim Date: 04/23/2024 2:44:58 PM Sign Date: 04/23/2024 2:44:58 PM MRI SPINE LUMBAR W/ + W/O CONTRAST View Image ORIGINAL EXAMINATION: MRI OF THE LUMBAR SPINE WITHOUT AND WITH CONTRAST 07/03/2024 4:56 pm TECHNIQUE: Multiplanar multisequence MRI of the lumbar spine was performed without and with the administration of intravenous contrast. COMPARISON: None. HISTORY: ORDERING SYSTEM PROVIDED HISTORY: Reason for Exam: s/p right L4-L5 laminectomy with partial medial facetectomy and foraminotomy with Dr. Olmstead on 04/24/2024. Continued RLE weakness. New onset left foot drop FINDINGS: BONES/ALIGNMENT: There is normal alignment of the spine. Status post L4-5 laminectomy. SPINAL CORD: The conus terminates normally. SOFT TISSUES: Postoperative in Radha mint is noted posterior to L5-S1. 19 mm seroma in the posterior left subcutaneous fat. T12-L1: Large left herniated disc with an AP extent of 10 mm in transverse extent 13 mm unchanged from the comparison examination. L1-L2: There is no significant disc protrusion, spinal canal stenosis or neural foraminal narrowing. L2-L3: There is no significant disc protrusion, spinal canal stenosis or neural foraminal narrowing. L3-L4: There is no significant disc protrusion, spinal canal stenosis or neural foraminal narrowing. L4-L5: Status post laminectomy and partial right medial facetectomy. Postoperative enhancement is demonstrated. No epidural fluid collection or complication is identified. Moderate right bony foraminal narrowing. L5-S1: There is no significant disc protrusion, spinal canal stenosis or neural foraminal narrowing. Hypertrophic facet arthropathy. IMPRESSION: Laminectomy L4-L5, no complication is identified. Moderate right bony foraminal narrowing L4-L5 from spur formation. Large left paracentral herniated disc T12-L1. Interpreted by: Xavi Meredith Preliminary Report By: Xavi Meredith Electronically signed By Xavi Meredith Dictated Date: 07/04/2024 5:55:41 AM Prelim Date: 07/04/2024 6:14:04 AM MRI SPINE THORACIC W/ + W/O CONTRAST View Image ORIGINAL EXAMINATION: MRI OF THE THORACIC SPINE WITHOUT AND WITH CONTRAST 07/17/2024 4:27 pm TECHNIQUE: Multiplanar multisequence MRI of the thoracic spine was performed without and with the administration of intravenous contrast. COMPARISON: None HISTORY: ORDERING SYSTEM PROVIDED HISTORY: Reason for Exam: MS workup FINDINGS: BONES/ALIGNMENT: There is normal alignment of the spine. The vertebral body heights are maintained. The bone marrow signal appears unremarkable. SPINAL CORD: No abnormal cord signal is seen. There is a 7 mm central herniation of disc material contacting the cord and T11-T12. There is a 7 mm right paracentral herniation of disc material contacting the cord at T9-T10. SOFT TISSUES: No abnormal enhancement of the thoracic spine. No paraspinal mass identified. DEGENERATIVE CHANGES: No significant spinal canal stenosis or neural foraminal narrowing of the thoracic spine. IMPRESSION: No evidence of demyelinating disease in the thoracic spinal cord. Large right herniated disc T9-T10. Large central herniated disc T11-T12. Interpreted by: Xavi Meredith Preliminary Report By: Xavi Meredith Electronically signed By Xavi Meredith Dictated Date: 07/18/2024 5:52:32 AM Prelim Date: 07/18/2024 5:56:05 AM Sign Date: 07/18/2024 5:56:05 AM MRI SPINE CERVICAL W/ + W/O CONTRAST View Image ORIGINAL EXAMINATION: MRI OF THE CERVICAL SPINE WITHOUT AND WITH CONTRAST 07/17/2024 4:27 pm: TECHNIQUE: Multiplanar multisequence MRI of the cervical spine was performed without and with the administration of intravenous contrast. COMPARISON: None. HISTORY: ORDERING SYSTEM PROVIDED HISTORY: Reason for Exam: MS workup FINDINGS: BONES/ALIGNMENT: There is normal alignment of the spine. The vertebral body heights are maintained. The bone marrow signal appears unremarkable. SPINAL CORD: No abnormal cord signal is seen. SOFT TISSUES: No abnormal enhancement of the cervical spine. No paraspinal mass identified. C2-C3: There is no significant disc protrusion, spinal canal stenosis or neural foraminal narrowing. C3-C4: There is no significant disc protrusion, spinal canal stenosis or neural foraminal narrowing. C4-C5: There is no significant disc protrusion, spinal canal stenosis or neural foraminal narrowing. C5-C6: There is no significant disc protrusion, spinal canal stenosis or neural foraminal narrowing. C6-C7: There is no significant disc protrusion, spinal canal stenosis or neural foraminal narrowing. C7-T1: There is no significant disc protrusion, spinal canal stenosis or neural foraminal narrowing. IMPRESSION: Unremarkable MRI examination of the cervical spine. No evidence of demyelinating disease in the cervical spinal cord. Interpreted by: Xavi Meredith Preliminary Report By: Xavi Meredith Electronically signed By Xavi Meredith Dictated Date: 07/18/2024 5:50:08 AM Prelim Date: 07/18/2024 5:52:16 AM MRI BRAIN W/ + W/O CONTRAST View Image ORIGINAL EXAMINATION: MRI OF THE BRAIN WITHOUT AND WITH CONTRAST 07/17/2024 4:27 pm TECHNIQUE: Multiplanar multisequence MRI of the head/brain was performed without and with the administration of intravenous contrast. COMPARISON: CT head 03/22/2024, MRI brain 01/17/2023 HISTORY: ORDERING SYSTEM PROVIDED HISTORY: Reason for Exam: MS workup FINDINGS: INTRACRANIAL STRUCTURES/VENTRICLES: There is no acute infarct. There are scattered foci of T2/FLAIR hyperintensity in the periventricular and subcortical white matter. No mass effect or midline shift. No evidence of an acute intracranial hemorrhage. The ventricles and sulci are normal in size and configuration. The sellar/suprasellar regions appear unremarkable. The normal signal voids within the major intracranial vessels appear maintained. No abnormal focus of enhancement is seen within the brain. ORBITS: The visualized portion of the orbits demonstrate no acute abnormality. SINUSES: Mild mucosal thickening in the maxillary sinuses bilaterally with some opacified ethmoid air cells. Otherwise the visualized paranasal sinuses and mastoid air cells demonstrate no acute abnormality. BONES/SOFT TISSUES: The bone marrow signal intensity appears normal. The soft tissues demonstrate no acute abnormality. Left parietal subcutaneous lesion, probably an epidermoid cyst. IMPRESSION: 1. No acute intracranial abnormality. 2. Minimal nonspecific white matter disease as may be seen in demyelination, microangiopathy or other causes. Interpreted by: Umair Pichardo Preliminary Report By: Umair Pichardo Electronically signed By Umair Pichardo Dictated Date: 07/18/2024 12:17:00 AM Prelim Date: 07/18/2024 12:23:34 AM Sign Date: 07/18/2024 12:23:34 AM TSH Final Result Collected: 07/14/2024 07:57 Received: 07/14/2024 11:20 Test Name Result Ab Ref Range Units Site Comment TSH 1.419 0.550-4.780 mIU/mL m Note - New Reference Range in effect 20 Trend Quick Trend FT4 Final Result Collected: 07/14/2024 07:57 Received: 07/14/2024 11:20 Test Name Result Ab Ref Range Units Site Comment Free T4 0.88 L 0.89-1.76 ng/dL m Note - New Reference Range in effect 20 Trend Quick Trend .GFR Final Result Collected: 07/14/2024 07:57 Received: 07/14/2024 11:20 Test Name Result Ab Ref Range Units Site Comment GFR Non- 50 ml/min/1.73sqm m GFR Population mean for , Non- Americans Ages 20-29 = 116 mL/min/1.73 sq.m. Ages 30-39 = 107 mL/min/1.73 sq.m. Ages 40-49 = 99 mL/min/1.73 sq.m. Ages 50-59 = 93 mL/min/1.73 sq.m. Ages 60-69 = 85 mL/min/1.73 sq.m. Ages 70+ = 75 mL/min/1.73 sq.m. Chronic Kidney Disease: Less than 60 mL/min/1.73 square meters End Stage Renal Disease: Less than 15 mL/min/1.73 square meters Trend Quick Trend GFR >60 ml/min/1.73sqm m GFR Population mean for , Non- Americans Ages 20-29 = 116 mL/min/1.73 sq.m. Ages 30-39 = 107 mL/min/1.73 sq.m. Ages 40-49 = 99 mL/min/1.73 sq.m. Ages 50-59 = 93 mL/min/1.73 sq.m. Ages 60-69 = 85 mL/min/1.73 sq.m. Ages 70+ = 75 mL/min/1.73 sq.m. Chronic Kidney Disease: Less than 60 mL/min/1.73 square meters End Stage Renal Disease: Less than 15 mL/min/1.73 square meters Trend Quick Trend LIPID Final Result Collected: 07/14/2024 07:57 Received: 07/14/2024 11:20 Test Name Result Ab Ref Range Units Site Comment Cholesterol 109 50-199 mg/dL m Cholesterol Reference Interval: Less than 200 Desirable 200-239 Borderline high risk 240 and above High risk Trend Quick Trend Triglycerides 204 H 3-149 mg/dL m Trend Quick Trend HDL Cholesterol 45 40-59 mg/dL m Trend Quick Trend LDL Cholesterol 23 0-129 mg/dL m Trend Quick Trend A1C Final Result Collected: 07/14/2024 07:57 Received: 07/14/2024 11:20 Test Name Result Ab Ref Range Units Site Comment Hgb A1c 6.1 H 4.0-6.0 % m Trend Quick Trend Est Avg Glucose 128 mg/dL m Estimated Average Glucose calculated by equation ((28.7xA1C)-46.7) Estimated average glucose (eAG) is a calculated value from Hemoglobin A1C and is bank representative of the average blood glucose level in the last 2-3 month period. Normal range: less than 114 mg/dL Trend Quic TSH Final Result Collected: 07/14/2024 07:57 Received: 07/14/2024 11:20 Test Name Result Ab Ref Range Units Site Comment TSH 1.419 0.550-4.780 mIU/mL m Note - New Reference Range in effect 20 Trend Q ASSESSMENT AND PLAN: Diagnosis Plan 1. Right peroneal mononeuropathy 2. Numbness and tingling in both hands Nerve conduction test with EMG 3. Weakness of both legs Ambulatory referral to Neuropsychology Protein, Total and Protein Electrophoresis Immunofixation Electrophoresis Hemoglobin A1c Vitamin B6 Vitamin B12 Vitamin B1 ([facility]) TSH Protein, Total and Protein Electrophoresis Immunofixation Electrophoresis Hemoglobin A1c Vitamin B6 Vitamin B12 Vitamin B1 ([facility]) TSH 4. Numbness in feet 5. Cognitive complaints Ambulatory referral to Neuropsychology Protein, Total and Protein Electrophoresis Immunofixation Electrophoresis Hemoglobin A1c Vitamin B6 Vitamin B12 Vitamin B1 ([facility]) TSH Protein, Total and Protein Electrophoresis Immunofixation Electrophoresis Hemoglobin A1c Vitamin B6 Vitamin B12 Vitamin B1 ([facility]) TSH 6. Idiopathic neuropathy Ambulatory referral to Neuropsychology Protein, Total and Protein Electrophoresis Immunofixation Electrophoresis Hemoglobin A1c Vitamin B6 Vitamin B12 Vitamin B1 ([facility]) TSH Protein, Total and Protein Electrophoresis Immunofixation Electrophoresis Hemoglobin A1c Vitamin B6 Vitamin B12 Vitamin B1 ([facility]) TSH 7. Fatigue, unspecified type Immunofixation Electrophoresis Hemoglobin A1c Vitamin B6 Vitamin B12 Vitamin B1 ([facility]) TSH Immunofixation Electrophoresis Hemoglobin A1c Vitamin B6 Vitamin B12 Vitamin B1 ([facility]) TSH Her MRI's were reviewed today and she does not have evidence of multiple sclerosis on the MRI's that I reviewed. She has also had many CT's of the head and CTA's of the head and neck that do not showa cause for her symptoms. Getting worse will get new EMG/NCS Labs for causes and EMG/NCS. Labs for causes and EMG/NCS Labs for causes and EMG/NCS Referral to neuropsychology for full cognitive evaluation. She is seeing her PCP for anxiety now but has seen psychiatry in the past. EMG/NCS of limbs and labs for causes. Labs for causes. I spent 70 minutes caring for this patient today, reviewing labs and records, seeing the patient, documenting in the record and arranging for studies. documented in this [facility]12-05-2024 History of Present illness Narrative* Shamar Roper MD - 10/23/2024 1:20 PM EST Images from the original note were not included. [facility] [place] [address] [address] [facility] [address] [place] [place] [place] [address] Dept: [phone] Dept Loc: [phone] Shamar Roper MD Thank you for your kind request for a neurological consultation on this patient. CHIEF COMPLAINT: Chief Complaint Patient presents with New Patient Numbness HISTORY OF PRESENT ILLNESS: The patient is a 49 y.o. person who presents with various complaints. My PCP thinks I have MS. She reports that her problems began in November with falls. She reports that some of these events wouldbe dizziness, other times she will feel weak in the legs. She continues to have weakness in the legs now and they suddenly give out. Later she reports that she started having issues with numbness in the upper right leg. She had this from the right hip to the knee, mostly latera, but some posterior.Nothing she does makes that numbness worse. She later had extension of the numbness from the right knee to the right foot on the top and bottom. No activity helps or hurts this. She also has right foot drop. She reports that she is having trouble learning. Her mother told her to bring up cognitive changes.She is losing her train of thought. Many of her issues started after marriage in July. She reports that if she holds something in her hands. She reports that the numbness involves the hands and finger tips and around the elbows. Putting down the ittem helps. She reports that it makes it difficult to perform using her hair curler. She reports that she had spine surgery on her lumbar spine in April of this year and that did not help. Past Medical History: has a past medical history of Anxiety, Asthma, Hypertension, and Lupus. Past Surgical History: has no past surgical history on file. Medications: Current Outpatient Medications: alpha tocopherol (Vitamin E) 100 units capsule, Take 100 Units by mouth daily., Disp: , Rfl: ALPRAZolam (Niravam) 0.5 MG disintegrating tablet, Take 0.5 mg by mouth Nightly as needed for anxiety., Disp: , Rfl: aspirin 81 MG EC tablet, Take 81 mg by mouth daily., Disp: , Rfl: atorvastatin (Lipitor) 10 MG tablet, Take 10 mg by mouth daily., Disp: , Rfl: budesonide EC (Entocort EC) 3 MG 24 hr capsule, Take 6 mg by mouth every morning., Disp: , Rfl: buPROPion SR (Wellbutrin SR) 150 MG 12 hr tablet, Take by mouth 2 times daily. Do not crush, chew, or split., Disp: , Rfl: cetirizine (ZyrTEC) 10 MG chewable tablet, Chew daily., Disp: , Rfl: Cholecalciferol (VITAMIN D-3 PO), Take 250 mcg by mouth., Disp: , Rfl: Docusate Calcium (STOOL SOFTENER PO), Take by mouth., Disp: , Rfl: levalbuterol (Xopenex) 0.63 MG/3ML nebulizer solution, Take 0.63 mg by nebulization three times daily., Disp: , Rfl: levalbuterol (Xopenex) 45 MCG/ACT inhaler, Inhale., Disp: , Rfl: metFORMIN (Glucophage) 500 MG tablet, Take 500 mg by mouth daily. 3 tabs at night, Disp: , Rfl: montelukast (Singulair) 10 MG tablet, Take by mouth., Disp: , Rfl: omeprazole (PriLOSEC) [address] capsule, Take 40 mg by mouth every morning (before breakfast). Do not crush or chew., Disp: , Rfl: ondansetron (Zofran) 4 MG tablet, Take by mouth., Disp: , Rfl: pregabalin (Lyrica) 50 MG capsule, Take 50 mg by mouth 3 times daily., Disp: , Rfl: QUEtiapine (SEROquel) 50 MG tablet, Take 50 mg by mouth Nightly., Disp: , Rfl: rosuvastatin (Crestor) 20 MG tablet, Take 20 mg by mouth daily., Disp: , Rfl: spironolactone (Aldactone) 50 MG tablet, Take 50 mg by mouth daily., Disp: , Rfl: Tirzepatide (Mounjaro) 7.5 MG/0.5ML solution auto-injector, Inject under the skin., Disp: , Rfl: Allergies: Sumatriptan, Amlodipine, Lisinopril, Metoclopramide, Orphenadrine, Pioglitazone, Prochlorperazine, Rizatriptan, Fluconazole, Lactose, and Magnesium sulfate Social History: Social History Socioeconomic History Marital status: Single Spouse name: Not on file Number of children: Not on file Years of education: Not on file Highest education level: Not on file Occupational History Not on file Tobacco Use Smoking status: Never Smokeless tobacco: Not on file Substance and Sexual Activity Alcohol use: Never Drug use: Never Sexual activity: Not on file Other Topics Concern Not on file Social History Narrative Not on file Social Drivers of Health Financial Resource Strain: Not on file Food Insecurity: Not on file Transportation Needs: Not on file Physical Activity: Not on file Stress: Not on file Social Connections: Not on file Intimate Partner Violence: Not on file Housing Stability: Not on file Family History: Family History Problem Relation Name Age of Onset Multiple sclerosis Other son REVIEW OF SYSTEMS: Review of Systems Constitutional: Negative for appetite change, chills, diaphoresis, fever and unexpected weight change. HENT: Negative for dental problem and mouth sores. Eyes: Negative for discharge and itching. Respiratory: Negative for chest tightness. Cardiovascular: Negative for chest pain and leg swelling. Gastrointestinal: Negative for rectal pain and vomiting. Endocrine: Negative for polydipsia, polyphagia and polyuria. Genitourinary: Negative for decreased urine volume, flank pain and genital sores. Musculoskeletal: Negative for arthralgias. Skin: Negative for color change. Allergic/Immunologic: Negative for food allergies and immunocompromised state. Neurological: Positive for weakness and numbness. Hematological: Negative for adenopathy. Does not bruise/bleed easily. Psychiatric/Behavioral: Negative for agitation, behavioral problems, decreased concentration, sleepdisturbance and suicidal ideas. PHYSICAL EXAM: Vitals: BP 128/89 (BP Location: Right arm, Patient Position: Sitting, BP Cuff Size: Large adult) Pulse 89 Ht 5' 8 (1.727 m) Wt 263 lb 6.4 oz (119 kg) BMI 40.05 kg/m General Appearance: Patient is in no apparent distress. Head is normocephalic, atraumatic Cardiovascular: Regular rate and rhythm. No heart murmurs. No carotid bruit Neurologic: Mentation: Alert and oriented x 3 to person, [address] but not city and month/year. Speech and Language: Speech and language normal Concentration and Attention: Concentration abnormal Memory: Memory 2/3 immed, 2/3 short (did not get the third one with a clue) Having to go through all of her Bea scans limited time for cog testing today Fund of Knowledge: Fund of knowledge normal Cranial Nerves: II, III, IV, V, , VII, VIII, IX, X, XI, XII tested and were intact including fundoscopic exam (optic discs) and visual field to confrontation. Motor: Strength:Exam difficult because of give-way weakness(relaxing of the muscle the moment force is applies rather than muscle being weak). She Had this give-way weakness in the right shoulder elevators and deltoids, but did better once I put a finger on the muscle being tested and encouraged participatioin. She is weak in the leg 3/5 in hip flexors and knee extensors. And not even flexing the right ankle dorsiflexors, 2/5 on left ADF Alternating Movements: Normal Cogwheel Rigidity: None Tone: Tone is normal Tremor / Involuntary Movements: None Deep Tendon Reflexes: 1 out of 4 symmetrical in all four limbs. Sensory: Decreased in a circumferential way around both ankles. Decreased in the hands more near the pinky finger. Coordination: Normal coordination upper and lower extremities Gait and Station: Station is normal. Gait is abnormal Has to use her walker. Right foot drop. Weakness on lifting up her knees. DATA CBC: Lab Results Component Value Date WBC 6.2 04/21/2020 RBC 4.73 04/21/2020 HGB 14.4 04/21/2020 MCV 88.8 04/21/2020 MCH 30.4 04/21/2020 MCHC 34.2 04/21/2020 RDW 13.8 04/21/2020 MPV 8.0 04/21/2020 CMP: Lab Results Component Value Date NA 137 04/21/2020 K 4.1 04/21/2020 CL 103 04/21/2020 CO2 24 04/21/2020 BUN 17 04/21/2020 CREATININE 0.75 04/21/2020 GLUCOSE 200 (H) 04/21/2020 PROT 7.4 04/21/2020 CALCIUM 9.2 04/21/2020 BILITOT 0.5 04/21/2020 ALKPHOS 135 (H) 04/21/2020 AST 31 04/21/2020 BMP: Lab Results Component Value Date NA 137 04/21/2020 K 4.1 04/21/2020 CL 103 04/21/2020 CO2 24 04/21/2020 BUN 17 04/21/2020 CREATININE 0.75 04/21/2020 CALCIUM 9.2 04/21/2020 GLUCOSE 200 (H) 04/21/2020 PT/INR: No results found for: PROTIME, INR PTT: No results found for: APTT, PTT[APTT} FLP: No results found for: CHLPL, TRIG, HDL, LDLCALC, LDLDIRECT TSH: No results found for: TSH VITAMIN B12: No results found for: [id number] FERRITIN: No results found for: FERRITIN ---- No results found for: PHENYTOIN, PHENOBARB, VALPROATE, CBMZ No components found for: TOPIRANo results found for: OXCARBAZE, OXCARB @LASTAPPOINTMENTTHISPROV@ ECG 12 lead [employer] Test Date: 2020-04-21 Pat Name: April Rosa Department: 41 Room: 16 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 TECHNIQUE: Axial CT images from skull base to vertex without IV contrast. This exam was performed according to our departmental dose optimization program, and includes the following measures where applicable: automated exposure control, adjustment of the mAs and/or kVp according to patient size and/or exam, and an iterative reconstruction algorithm. COMPARISON: 02/12/2019 FINDINGS: There is no acute intracranial hemorrhage, mass, mass effect or abnormal extra-axial fluid collection. There is no CT evidence of acute infarct. The ventricles are normal. Empty sella noted. Hypodensity posteriorly bilaterally is favored to be artifact related to this particular scanner. The skull base and calvarium demonstrate no abnormality. There is mild paranasal sinus mucosal thickening. Included mastoid air cells are clear. IMPRESSION: 1. No acute intracranial abnormality. 2. Empty sella which may be an incidental finding or seen in intracranial hypertension. Interpreted By: Corry Guevara MD Preliminary Report By: Corry Guevara MD Electronically Signed By: Corry Guevara MD Dictated Date: 04/19/2020 10:51:[address] HEAD OR BRAIN W/O CONTRAST CLINICAL STATEMENT: dizziness TECHNIQUE: Axial CT images from skull base to vertex without IV contrast. This exam was performed according to our departmental dose optimization program, and includes the following measures where applicable: automated exposure control, adjustment of the mAs and/or kVp according to patient size and/or exam, and an iterative reconstruction algorithm. COMPARISON: CT head 04/19/2020 FINDINGS: There is no intracranial hemorrhage, mass, mass effect or abnormal extra-axial fluid collection. No evidence of an acute territorial infarct is identified. The ventricles and cisternal spaces are within normal limits in size and configuration for the patient's age. The skull base, calvarium, and orbits demonstrate no acute abnormality. The included paranasal sinuses and mastoid air cells are predominantly clear. IMPRESSION: No acute intracranial abnormality is identified. I have personally reviewed the images of this examination and agree with the resident's findings and interpretation. Interpreted By: Bronson Russell MD Preliminary Report By: Cj Perales MD Electronically Signed By: Bronson Russell MD Dictated Date: 07/16/2020 7:51:[address] ANGIOGRAPHY NECK W/CONTRAST TECHNIQUE: Images were obtained with IV contrast. Multiplanar reformatted and three dimensional volume rendered images were generated on an independent workstation. This exam was performed according to our departmental dose optimization program, and includes the following measures where applicable: automated exposure control, adjustment of the mAs and/or kVp according to patient size and/or exam,and an iterative reconstruction algorithm. Multiplanar reformatted and shaded-surface display and three dimensional volume rendered images were generated. Where applicable, evaluation of ICA stenosiswas performed using the site of greatest stenosis is compared to the diameter of the ICA distal to the stenosis at a point where the ICA estes become parallel. CLINICAL STATEMENT: TIA. C/O HEADACHE AND DIZZINESS X FEW DAYS , TIA COMPARISON: None FINDINGS: The vertebral arteries are patent bilaterally with no significant focal area of narrowing. The RIGHT vertebral artery is dominant. Bilaterally, the common and internal carotid arteries are patent and normal in caliber with no significant focal area of stenotic narrowing identified. No additional contributory abnormality seen. IMPRESSION: No hemodynamically significant ICA stenosis is visible on this exam. Interpreted By: Bronson Patel MD Preliminary Report By: Bronson Patel MD Electronically Signed By: Bronson Patel MD Dictated Date: 07/17/2020 1:39:30 PM Prelim Date: 07/17/2020 1:39:[address] ANGIOGRAPHY HEAD W/ CONTRAST View Image ORIGINAL CT ANGIOGRAPHY HEAD W/ CONTRAST TECHNIQUE: Images were obtained with IV contrast. Multiplanar reformatted and three dimensional volume rendered images were generated on an independent workstation. This exam was performed according to our departmental dose optimization program, and includes the following measures where applicable: automated exposure control, adjustment of the mAs and/or kVp according to patient size and/or exam,and an iterative reconstruction algorithm. CLINICAL STATEMENT: TIA. C/O HEADACHE AND DIZZINESS X FEW DAYS , TIA COMPARISON: CT scan 07/16/2020 FINDINGS: The vessels about the [place] are patent and normal in caliber with no significant focal area of narrowing seen. There is no evidence for aneurysm about the [place]. No additional contributory finding seen. IMPRESSION: No evidence for large vessel occlusion on this exam. Interpreted By: Bronson Patel MD Preliminary Report By: Bronson Patel MD Electronically Signed By: Bronson Patel MD Dictated Date: 07/17/2020 1:32:20 PM Prelim Date: 07/17/2020 1:32:[address] HEAD OR BRAIN W/O CONTRAST CLINICAL STATEMENT: dizziness, syncope, CEBALLOS. TECHNIQUE: Axial CT images from skull base to vertex without IV contrast. This exam was performed according to our departmental dose optimization program, and includes the following measures where applicable: automated exposure control, adjustment of the mAs and/or kVp according to patient size and/or exam, and an iterative reconstruction algorithm. COMPARISON: CT head 07/16/2020. FINDINGS: There is no acute intracranial hemorrhage, mass, mass effect or abnormal extra-axial fluid collection. There is no CT evidence of acute infarct. The ventricles are normal. Incidentally noted is an empty sella. The skull base and calvarium demonstrate no abnormality. Mild mucosal thickening of the ethmoid aircells. Included mastoid air cells are clear. IMPRESSION: No acute intracranial abnormality. I have personally reviewed the images of this examination and agree with the resident's findings and interpretation. Interpreted By: Shamar Sullivan MD Preliminary Report By: Elda Waldron Electronically Signed By: Shamar Sullivan MD Dictated Date: 04/01/2021 11:00:02 AM Prelim Date: 04/01/2021 11:04:16 AM MRI OF THE BRAIN WITHOUT CONTRAST 01/17/2023 [...] intracranial abnormality. Mild chronic microvascular angiopathy. CT OF THE HEAD WITHOUT CONTRAST 01/17/2023 [...] IMPRESSION: No acute intracranial abnormality. Interpreted by: Kade Watson Preliminary Report By: Kade Watson Electronically signed By Kade Watson Dictated Date: 01/17/2023 4:32:30 PM Prelim Date: 01/17/2023 4:36:00 PM CTA OF THE NECK 01/17/2023 2:41 am [...] resident's findings and interpretation. Interpreted by: Pelon Samuel MD Preliminary Report By: Johnnie Sepulveda Electronically signed By Pelon Samuel MD Dictated Date: 01/17/2023 2:50:04 AM Prelim Date: 01/17/2023 2:54:43 AM Sign Date: 01/17/2023 3:20:39 AM CTA OF THE HEAD WITH CONTRAST 01/17/2023 [...] resident's findings and interpretation. Interpreted by: Pelon Samuel MD Preliminary Report By: Johnnie Sepulveda Electronically signed By Pelon Samuel MD Dictated Date: 01/17/2023 2:43:28 AM Prelim Date: 01/17/2023 2:49:39 AM Sign Date: 01/17/2023 3:18:[address] OF THE HEAD WITHOUT CONTRAST 03/22/2024 2:24 am TECHNIQUE: CT of the head was performed without the administration of intravenous contrast. Automated exposure control, iterative reconstruction, and/or weight based adjustment of the mA/kV was utilized to reduce the radiation dose to as low as reasonably achievable. COMPARISON: CT head on 01/17/2023 HISTORY: ORDERING SYSTEM PROVIDED HISTORY: Reason for Exam: PATIENT STATES SHE FELL DOWN 3 STEPS AND HIT HER HEAD, -LOC, -THINNERS, C/O RIGHT ORTHODOXY PAIN AND HEADACHE INJURY FINDINGS: BRAIN/VENTRICLES: There is no acute intracranial hemorrhage, mass effect or midline shift. No abnormal extra-axial fluid collection. The carreno-white differentiation is maintained without evidence of an acute infarct. There is no evidence of hydrocephalus. ORBITS: The visualized portion of the orbits demonstrate no acute abnormality. SINUSES: The visualized paranasal sinuses and mastoid air cells demonstrate no acute abnormality. SOFT TISSUES/SKULL: No acute abnormality of the visualized skull or soft tissues. 1.8 cm partly calcified left scalp nodule is stable. IMPRESSION: No acute intracranial abnormality. Interpreted by: Reza Perea MD Preliminary Report By: Reza Perea MD Electronically signed By Reza Perea MD Dictated Date: 03/22/2024 2:25:55 AM Prelim Date: 03/22/2024 2:29:29 AM Sign Date: 03/22/2024 2:29:[address] OF THE LUMBAR SPINE WITHOUT CONTRAST 04/21/2024 TECHNIQUE: CT of the lumbar spine was performed without the administration of intravenous contrast. Multiplanar reformatted images are provided for review. Adjustment of mA and/or kV according to patient size was utilized. Automated exposure control, iterative reconstruction, and/or weight based adjustment of the mA/kV was utilized to reduce the radiation dose to as low as reasonably achievable. COMPARISON: Lumbar spine x-ray on 03/22/2024. CT abdomen and pelvis on 01/27/2024. HISTORY: ORDERING SYSTEM PROVIDED HISTORY: Reason for Exam: PT C/O LOWER BACK PAIN WITH RADIATING PAIN DOWN RIGHT LEG, NO SURGICAL HX INJURY FINDINGS: BONES/ALIGNMENT: The lumbar spine alignment is normal. The vertebral bodies are normal in height with no fracture. DEGENERATIVE CHANGES: The T12-L1 intervertebral disc demonstrates mild narrowing. There is prominent osteophytic spur formation anteriorly. There is asymmetric focal disc protrusion posterolaterally to the left. There is calcification of the margins of the disc appears chronic. This creates narrowing of the left neural foramen and mild central canal stenosis. The L4-L5 intervertebral disc demonstrates moderate central bulging without focal disc protrusion. There is mild neural foraminal narrowing bilaterally at L4-L5. Other disc levels show no significant abnormality. Posterior elements are intact. SOFT TISSUES/RETROPERITONEUM: No paraspinal mass is seen. There is no retroperitoneal mass or lymph node enlargement. Abdominal aorta is nonaneurysmal. IMPRESSION: 1. No acute osseous abnormality of the lumbar spine. 2. Focal disc protrusion T12-L1 with left-sided neural foraminal narrowing and mild central canal stenosis. 3. Central bulging L4-L5 without focal disc protrusion. 4. Mild bilateral L4-L5 neural foraminal narrowing. Interpreted by: Reza Perea MD Preliminary Report By: Reza Perea MD Electronically signed By Reza Perea MD Dictated Date: 04/21/2024 7:40:08 AM Prelim Date: 04/21/2024 7:45:05 AM Sign Date: 04/21/2024 7:45:05 AM MRI SPINE LUMBAR W/ + W/O CONTRAST View Image ORIGINAL INDICATION:ORDERING SYSTEM PROVIDED HISTORY: Reason for Exam: R low back pain, incontinence, R leg weakness TECHNIQUE: MRI of the lumbar spine was performed without and with the administration of intravenous contrast, according to standard protocol. COMPARISON: CT lumbar spine 04/21/2024, CT abdomen pelvis 11/10/2020 FINDINGS: ALIGNMENT: Trace degenerative anterolisthesis of L4 on L5. VERTEBRAE: No evidence of an acute/recent fracture. Anterior bridging degenerative enthesopathy changes involve T12-L1. Moderately prominent anterior spinal changes are at L1-L2 are also noted. Modic type 2 endplate degenerative changes are present at the T12-L1 level. 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 A 10 mm hyperintense focus on T1 and T2 weighted images is located in the left iliac wing not conspicuous on the examinations of reference. DISCS: Widespread disc desiccation. Mild disc height loss involves L4-5. CONUS MEDULLARIS AND CAUDA EQUINA: The conus medullaris terminates at L1-L2 and is normal. The cauda equina are unremarkable. Variation fatty infiltration of the filum terminale. PARAVERTEBRAL SOFT TISSUES: Mild atrophy of the posterior paraspinous muscles more pronounced on the right at L4 and L5. SPINAL CANAL: Overall reduced caliber of the spinal canal on the basis of congenitally short pedicles. EVALUATION OF INDIVIDUAL LEVELS DEMONSTRATES: T12-L1: A left subarticular disc extrusion effaces the ventral and left lateral spinal cord causing [id number] central canal stenosis without foraminal narrowing. L1-2: No disc herniation, central canal stenosis or foraminal narrowing. Mild bilateral facet arthrosis with a small left facet effusion. L2-3: Small circumferential disc bulge and mild facet arthrosis causes mild bilateral foraminal narrowing without central canal stenosis. A small left facet joint effusion is noted. L3-4: Trace diffuse bulge of the posterior annulus and mild facet arthrosis without disc herniation, central canal stenosis or foraminal narrowing. L4-5: Diffuse posterior disc bulge most pronounced to the right with a superimposed right subarticular foraminal and extraforaminal disc herniation, small canal, ligamentum flavum hypertrophy and facet arthrosis results in impingement of the descending right L5 nerve root (axial T2 image 13 series 6), moderate right and mild left foraminal narrowing without central canal stenosis. Enhancement within the right foramen and subarticular zone is noted and must be correlated with any surgical history. Disc may contact the exited bilateral L4 nerve roots. L5-S1: Small diffuse posterior disc bulge, disc unroofing associated with an anterolisthesis L5 on S1, and moderate bilateral facet arthrosis causes mild bilateral foraminal narrowing without central canal stenosis. LIMITED EVALUATION OF UPPER SACRUM AND SACROILIAC JOINTS: DEGENERATIVE CHANGES of the bilateral sacroiliac joints more pronounced on the left. IMPRESSION: 1. Mild to moderate central canal stenosis at T12-L1. 2. Impingement of the descending right L5 and possibly the bilateral exited L4 nerve roots at L4-5. 3. Enhancement within the right L4-5 subarticular and foraminal zones. Correlate with any prior surgical history or interventional procedures. 4. Probable benign 10 mm hyperintense focus on T1 and T2 weighted images within the left iliac crest not conspicuous on CT. Interpreted by: Marco A Ogden MD Preliminary Report By: Marco A Ogden MD Electronically signed By Marco A Ogden MD Dictated Date: 04/23/2024 2:21:49 PM Prelim Date: 04/23/2024 2:44:58 PM Sign Date: 04/23/2024 2:44:58 PM MRI SPINE LUMBAR W/ + W/O CONTRAST View Image ORIGINAL EXAMINATION: MRI OF THE LUMBAR SPINE WITHOUT AND WITH CONTRAST 07/03/2024 4:56 pm TECHNIQUE: Multiplanar multisequence MRI of the lumbar spine was performed without and with the administration of intravenous contrast. COMPARISON: None. HISTORY: ORDERING SYSTEM PROVIDED HISTORY: Reason for Exam: s/p right L4-L5 laminectomy with partial medial facetectomy and foraminotomy with Dr. Olmstead on 04/24/2024. Continued RLE weakness. New onset left foot drop FINDINGS: BONES/ALIGNMENT: There is normal alignment of the spine. Status post L4-5 laminectomy. SPINAL CORD: The conus terminates normally. SOFT TISSUES: Postoperative in Radha mint is noted posterior to L5-S1. 19 mm seroma in the posterior left subcutaneous fat. T12-L1: Large left herniated disc with an AP extent of 10 mm in transverse extent 13 mm unchanged from the comparison examination. L1-L2: There is no significant disc protrusion, spinal canal stenosis or neural foraminal narrowing. L2-L3: There is no significant disc protrusion, spinal canal stenosis or neural foraminal narrowing. L3-L4: There is no significant disc protrusion, spinal canal stenosis or neural foraminal narrowing. L4-L5: Status post laminectomy and partial right medial facetectomy. Postoperative enhancement is demonstrated. No epidural fluid collection or complication is identified. Moderate right bony foraminal narrowing. L5-S1: There is no significant disc protrusion, spinal canal stenosis or neural foraminal narrowing. Hypertrophic facet arthropathy. IMPRESSION: Laminectomy L4-L5, no complication is identified. Moderate right bony foraminal narrowing L4-L5 from spur formation. Large left paracentral herniated disc T12-L1. Interpreted by: Xavi Meredith Preliminary Report By: Xavi Meredith Electronically signed By Xavi Meredith Dictated Date: 07/04/2024 5:55:41 AM Prelim Date: 07/04/2024 6:14:04 AM MRI SPINE THORACIC W/ + W/O CONTRAST View Image ORIGINAL EXAMINATION: MRI OF THE THORACIC SPINE WITHOUT AND WITH CONTRAST 07/17/2024 4:27 pm TECHNIQUE: Multiplanar multisequence MRI of the thoracic spine was performed without and with the administration of intravenous contrast. COMPARISON: None HISTORY: ORDERING SYSTEM PROVIDED HISTORY: Reason for Exam: MS workup FINDINGS: BONES/ALIGNMENT: There is normal alignment of the spine. The vertebral body heights are maintained. The bone marrow signal appears unremarkable. SPINAL CORD: No abnormal cord signal is seen. There is a 7 mm central herniation of disc material contacting the cord and T11-T12. There is a 7 mm right paracentral herniation of disc material contacting the cord at T9-T10. SOFT TISSUES: No abnormal enhancement of the thoracic spine. No paraspinal mass identified. DEGENERATIVE CHANGES: No significant spinal canal stenosis or neural foraminal narrowing of the thoracic spine. IMPRESSION: No evidence of demyelinating disease in the thoracic spinal cord. Large right herniated disc T9-T10. Large central herniated disc T11-T12. Interpreted by: Xavi Meredith Preliminary Report By: Xavi Meredith Electronically signed By Xavi Meredith Dictated Date: 07/18/2024 5:52:32 AM Prelim Date: 07/18/2024 5:56:05 AM Sign Date: 07/18/2024 5:56:05 AM MRI SPINE CERVICAL W/ + W/O CONTRAST View Image ORIGINAL EXAMINATION: MRI OF THE CERVICAL SPINE WITHOUT AND WITH CONTRAST 07/17/2024 4:27 pm: TECHNIQUE: Multiplanar multisequence MRI of the cervical spine was performed without and with the administration of intravenous contrast. COMPARISON: None. HISTORY: ORDERING SYSTEM PROVIDED HISTORY: Reason for Exam: MS workup FINDINGS: BONES/ALIGNMENT: There is normal alignment of the spine. The vertebral body heights are maintained. The bone marrow signal appears unremarkable. SPINAL CORD: No abnormal cord signal is seen. SOFT TISSUES: No abnormal enhancement of the cervical spine. No paraspinal mass identified. C2-C3: There is no significant disc protrusion, spinal canal stenosis or neural foraminal narrowing. C3-C4: There is no significant disc protrusion, spinal canal stenosis or neural foraminal narrowing. C4-C5: There is no significant disc protrusion, spinal canal stenosis or neural foraminal narrowing. C5-C6: There is no significant disc protrusion, spinal canal stenosis or neural foraminal narrowing. C6-C7: There is no significant disc protrusion, spinal canal stenosis or neural foraminal narrowing. C7-T1: There is no significant disc protrusion, spinal canal stenosis or neural foraminal narrowing. IMPRESSION: Unremarkable MRI examination of the cervical spine. No evidence of demyelinating disease in the cervical spinal cord. Interpreted by: Xavi Meredith Preliminary Report By: Xavi Meredith Electronically signed By Xavi Meredith Dictated Date: 07/18/2024 5:50:08 AM Prelim Date: 07/18/2024 5:52:16 AM MRI BRAIN W/ + W/O CONTRAST View Image ORIGINAL EXAMINATION: MRI OF THE BRAIN WITHOUT AND WITH CONTRAST 07/17/2024 4:27 pm TECHNIQUE: Multiplanar multisequence MRI of the head/brain was performed without and with the administration of intravenous contrast. COMPARISON: CT head 03/22/2024, MRI brain 01/17/2023 HISTORY: ORDERING SYSTEM PROVIDED HISTORY: Reason for Exam: MS workup FINDINGS: INTRACRANIAL STRUCTURES/VENTRICLES: There is no acute infarct. There are scattered foci of T2/FLAIR hyperintensity in the periventricular and subcortical white matter. No mass effect or midline shift. No evidence of an acute intracranial hemorrhage. The ventricles and sulci are normal in size and configuration. The sellar/suprasellar regions appear unremarkable. The normal signal voids within the major intracranial vessels appear maintained. No abnormal focus of enhancement is seen within the brain. ORBITS: The visualized portion of the orbits demonstrate no acute abnormality. SINUSES: Mild mucosal thickening in the maxillary sinuses bilaterally with some opacified ethmoid air cells. Otherwise the visualized paranasal sinuses and mastoid air cells demonstrate no acute abnormality. BONES/SOFT TISSUES: The bone marrow signal intensity appears normal. The soft tissues demonstrate no acute abnormality. Left parietal subcutaneous lesion, probably an epidermoid cyst. IMPRESSION: 1. No acute intracranial abnormality. 2. Minimal nonspecific white matter disease as may be seen in demyelination, microangiopathy or other causes. Interpreted by: Umair Pichardo Preliminary Report By: Umair Pichardo Electronically signed By Umair Pichardo Dictated Date: 07/18/2024 12:17:00 AM Prelim Date: 07/18/2024 12:23:34 AM Sign Date: 07/18/2024 12:23:34 AM TSH Final Result Collected: 07/14/2024 07:57 Received: 07/14/2024 11:20 Test Name Result Ab Ref Range Units Site Comment TSH 1.419 0.550-4.780 mIU/mL m Note - New Reference Range in effect 20 Trend Quick Trend FT4 Final Result Collected: 07/14/2024 07:57 Received: 07/14/2024 11:20 Test Name Result Ab Ref Range Units Site Comment Free T4 0.88 L 0.89-1.76 ng/dL m Note - New Reference Range in effect 20 Trend Quick Trend .GFR Final Result Collected: 07/14/2024 07:57 Received: 07/14/2024 11:20 Test Name Result Ab Ref Range Units Site Comment GFR Non- 50 ml/min/1.73sqm m GFR Population mean for , Non- Americans Ages 20-29 = 116 mL/min/1.73 sq.m. Ages 30-39 = 107 mL/min/1.73 sq.m. Ages 40-49 = 99 mL/min/1.73 sq.m. Ages 50-59 = 93 mL/min/1.73 sq.m. Ages 60-69 = 85 mL/min/1.73 sq.m. Ages 70+ = 75 mL/min/1.73 sq.m. Chronic Kidney Disease: Less than 60 mL/min/1.73 square meters End Stage Renal Disease: Less than 15 mL/min/1.73 square meters Trend Quick Trend GFR >60 ml/min/1.73sqm m GFR Population mean for , Non- Americans Ages 20-29 = 116 mL/min/1.73 sq.m. Ages 30-39 = 107 mL/min/1.73 sq.m. Ages 40-49 = 99 mL/min/1.73 sq.m. Ages 50-59 = 93 mL/min/1.73 sq.m. Ages 60-69 = 85 mL/min/1.73 sq.m. Ages 70+ = 75 mL/min/1.73 sq.m. Chronic Kidney Disease: Less than 60 mL/min/1.73 square meters End Stage Renal Disease: Less than 15 mL/min/1.73 square meters Trend Quick Trend LIPID Final Result Collected: 07/14/2024 07:57 Received: 07/14/2024 11:20 Test Name Result Ab Ref Range Units Site Comment Cholesterol 109 50-199 mg/dL m Cholesterol Reference Interval: Less than 200 Desirable 200-239 Borderline high risk 240 and above High risk Trend Quick Trend Triglycerides 204 H 3-149 mg/dL m Trend Quick Trend HDL Cholesterol 45 40-59 mg/dL m Trend Quick Trend LDL Cholesterol 23 0-129 mg/dL m Trend Quick Trend A1C Final Result Collected: 07/14/2024 07:57 Received: 07/14/2024 11:20 Test Name Result Ab Ref Range Units Site Comment Hgb A1c 6.1 H 4.0-6.0 % m Trend Quick Trend Est Avg Glucose 128 mg/dL m Estimated Average Glucose calculated by equation ((28.7xA1C)-46.7) Estimated average glucose (eAG) is a calculated value from Hemoglobin A1C and is bank representative of the average blood glucose level in the last 2-3 month period. Normal range: less than 114 mg/dL Trend Quic TSH Final Result Collected: 07/14/2024 07:57 Received: 07/14/2024 11:20 Test Name Result Ab Ref Range Units Site Comment TSH 1.419 0.550-4.780 mIU/mL m Note - New Reference Range in effect 20 Trend Q ASSESSMENT AND PLAN: Diagnosis Plan 1. Right peroneal mononeuropathy 2. Numbness and tingling in both hands Nerve conduction test with EMG 3. Weakness of both legs Ambulatory referral to Neuropsychology Protein, Total and Protein Electrophoresis Immunofixation Electrophoresis Hemoglobin A1c Vitamin B6 Vitamin B12 Vitamin B1 ([facility]) TSH Protein, Total and Protein Electrophoresis Immunofixation Electrophoresis Hemoglobin A1c Vitamin B6 Vitamin B12 Vitamin B1 ([facility]) TSH 4. Numbness in feet 5. Cognitive complaints Ambulatory referral to Neuropsychology Protein, Total and Protein Electrophoresis Immunofixation Electrophoresis Hemoglobin A1c Vitamin B6 Vitamin B12 Vitamin B1 ([facility]) TSH Protein, Total and Protein Electrophoresis Immunofixation Electrophoresis Hemoglobin A1c Vitamin B6 Vitamin B12 Vitamin B1 ([facility]) TSH 6. Idiopathic neuropathy Ambulatory referral to Neuropsychology Protein, Total and Protein Electrophoresis Immunofixation Electrophoresis Hemoglobin A1c Vitamin B6 Vitamin B12 Vitamin B1 ([facility]) TSH Protein, Total and Protein Electrophoresis Immunofixation Electrophoresis Hemoglobin A1c Vitamin B6 Vitamin B12 Vitamin B1 ([facility]) TSH 7. Fatigue, unspecified type Immunofixation Electrophoresis Hemoglobin A1c Vitamin B6 Vitamin B12 Vitamin B1 ([facility]) TSH Immunofixation Electrophoresis Hemoglobin A1c Vitamin B6 Vitamin B12 Vitamin B1 ([facility]) TSH Her MRI's were reviewed today and she does not have evidence of multiple sclerosis on the MRI's that I reviewed. She has also had many CT's of the head and CTA's of the head and neck that do not showa cause for her symptoms. Getting worse will get new EMG/NCS Labs for causes and EMG/NCS. Labs for causes and EMG/NCS Labs for causes and EMG/NCS Referral to neuropsychology for full cognitive evaluation. She is seeing her PCP for anxiety now but has seen psychiatry in the past. EMG/NCS of limbs and labs for causes. Labs for causes. I spent 70 minutes caring for this patient today, reviewing labs and records, seeing the patient, documenting in the record and arranging for studies. documented in this [facility]12-05-2024 Miscellaneous Notes* Addendum Note - Shamar Roper MD - 10/23/2024 1:20 PM ESTAddended by: SHAMAR ROPER on: 10/29/2024 10:00 AM Modules accepted: Orders documented in this [facility]12-05-2024 Note* Addendum Note - Shamar Roper MD - 10/23/2024 1:20 PM ESTAddended by: SHAMAR ROPER on: 10/29/2024 10:00 AM Modules accepted: [id number] Note ORIGINAL EXAMINATION: MRI OF THE BRAIN WITHOUT AND WITH CONTRAST 07/17/2024 4:27 pm TECHNIQUE: Multiplanar multisequence MRI of the head/brain was performed without and with the administration of intravenous contrast. COMPARISON: CT head 03/22/2024, MRI brain 01/17/2023 HISTORY: ORDERING SYSTEM PROVIDED HISTORY: Reason for Exam: MS workup FINDINGS: INTRACRANIAL STRUCTURES/VENTRICLES: There is no acute infarct. There are scattered foci of T2/FLAIR hyperintensity in the periventricular and subcortical white matter. No mass effect or midline shift. No evidence of an acute intracranial hemorrhage. The ventricles and sulci are normal in size and configuration. The sellar/suprasellar regions appear unremarkable. The normal signal voids within the major intracranial vessels appear maintained. No abnormal focus of enhancement is seen within the brain. ORBITS: The visualized portion of the orbits demonstrate no acute abnormality. SINUSES: Mild mucosal thickening in the maxillary sinuses bilaterally with some opacified ethmoid air cells. Otherwise the visualized paranasal sinuses and mastoid air cells demonstrate no acute abnormality. BONES/SOFT TISSUES: The bone marrow signal intensity appears normal. The soft tissues demonstrate no acute abnormality. Left parietal subcutaneous lesion, probably an epidermoid cyst. IMPRESSION: 1. No acute intracranial abnormality. 2. Minimal nonspecific white matter disease as may be seen in demyelination, microangiopathy or other causes. Interpreted by: Umair Pichardo Preliminary Report By: Umair Pichardo Electronically signed By Umair Pichardo Dictated Date: 07/18/2024 12:17:00 AM Prelim Date: 07/18/2024 12:23:34 AM Sign Date: 07/18/2024 12:23:34 AM Ordering Provider: [facility]08-01-2024 NoteORIGINAL PROCEDURE: Lumbar Epidural Injection with Fluoroscopic Guidance CLINICAL STATEMENT: 6 weeks postop back surgery. Continue RLE pain and paresthesia ELECTRICIAN SHIP: Tere Floyd PA-C ANESTHESIA: Local NEEDLE: 22 G spinal needle PUNCTURE LEVEL: L2-L3, Unsuccessful attempt at L3-4 MEDICATION FOR INJECTION: Dexamethasone 10 mg/ mL: 1 mL Preservative free saline: 4 mL 1% lidocaine: 1 mL FLUOROSCOPY: 1.3 MIN AIR KERMA DOSE: 113.44 mGy The procedure, risks, and alternatives, were discussed and all questions were answered. Written informed consent obtained. Accompanying paperwork was verified for accuracy. Directed history and physical exam performed prior to the procedure. Medication reconciliation performed by nursing personnel. Procedure was performed using a cap, sterile gown, sterile gloves, a large sterile sheet, hand hygiene and Betadine for cutaneous antisepsis. The patient was positioned prone on the table and prepped and draped in usual sterile fashion. A critical pause was performed with assisting personnel just prior to the procedure with the patient's identity confirmed using 2 identifiers, confirming site and side. Prior to sterile prep, a puncture site was selected and marked under fluoroscopy. 2% lidocaine was administered at the L3-L4 puncture site for local anesthesia. A 22-G spinal needle was advanced at the L3-L4 level, contrast injection demonstrates location of the needle tip within the superficial tissue. Due to difficult visualization, this level was aborted and attention turned to L2-L3. 2% lidocaine was administered at the L2-L3 puncture site for local anesthesia. A 22-G spinal needle was advanced into the epidural space under fluoroscopic guidance. Contrast was injected to confirm the epidural location of the needle tip. Medication mixture was then injected into the epidural space. The patient's pre-procedure pain was 6 /10. Immediate post procedure pain was 6 /10. There were no apparent complications. The patient tolerated the procedure well. IMPRESSION: 1. Successful lumbar epidural injection for symptomatic relief. 2. Immediate post procedure pain unchanged (6/10). Procedure was performed by Tere Floyd PA-C Interpreted by: Shamar Beth MD Preliminary Report By: Tere Floyd PA-C Electronically signed By Shamar Beth MD Dictated Date: 06/18/2024 12:43:35 PM Prelim Date: 06/18/2024 12:52:06 PM Sign Date: 06/19/2024 4:58:37 PM Ordering Provider: [facility] ([place])06-18-2024 Note* RAUDEL Vale: SIGN, AUTHOR, SIGN, AUTHOR, PERFORM Event Display: IR Procedure Record Authored Date: [id number] IR Procedure Record Summary Primary Physician: Finalized Date/Time: 06/18/24 14:18:57 Pt. Name: APRIL ROSA/Sex: 1975 Female Med Rec #: [id number] Physician: Financial #: [id number] Pt. Type: O Room/Bed: / Admit/Disch: 06/18/24 07:04:00 - Institution: Allergies identified in patient's electronic medical record at time of printing on 06/18/24 Entry 1 Entry 2 Entry 3 Substance Actos Compazine Diflucan Reaction Type Allergy Adverse Effect Allergy Last Modified By: Dinorah Grossman BRIDGE/STRUCTURE INSPECTION TEAM LEADER Krista Perez [facility] Carrie Bass BRIDGE/STRUCTURE INSPECTION TEAM LEADER (AAMA) 10/04/22 12:43:58 04/19/20 10:32:01 03/07/24 13:59:13 Entry 4 Entry 5 Entry 6 Substance Imitrex Maxalt Norflex Reaction Type Adverse Effect Adverse Effect Adverse Effect Last Modified By: Krista Perez [facility] Krista Perez [facility] Krista Perez [facility] 04/19/20 10:32:22 04/19/20 10:33:05 04/19/20 10:33:24 Entry 7 Entry 8 Entry 9 Substance Reglan amLODIPine lisinopril Reaction Type Allergy Allergy Allergy Last Modified By: Adi Amador RN, Krista Malone [facility] 04/01/21 12:21:06 04/15/21 08:28:30 04/19/20 11:02:29 Case Attendance- IR Entry 1 Entry 2 Entry 3 Case Attendee TERE FLOYD RN Melanie L Craemer, Andrew Barton PA-C Role Performed Radiology PA/RA Bushing And Broach Operator 1 Circulating Technologist Details Time In 06/18/24 08:25:00 06/18/24 08:10:00 06/18/24 08:10:00 Time Out 06/18/24 08:50:00 06/18/24 08:55:00 06/18/24 08:55:00 Procedure/Preference IR Epidural Injection IR Epidural Injection IR Epidural Injection Card (SN) (SN) (SN) Last Modified By: RAUDEL Vale RN Melanie L Lee, RN Melanie L 06/18/24 14:15:41 06/18/24 14:15:41 06/18/24 14:15:41 Entry 4 Case Attendee Trevor Booker Role Performed Scrub Technologist Details Time In 06/18/24 08:10:00 Time Out 06/18/24 08:55:00 Procedure/Preference IR Epidural Injection Card (SN) Last Modified By: RAUDEL Vale 06/18/24 14:15:41 Radiology Procedures- IR Entry 1 Procedure/Preference IR Epidural Injection Actual Procedure IR EPIDURAL INJECTION Card (SN) Primary Procedure Yes Primary Surgeon TERE FLOYD PA-C Anesthesia/Sedation Local Type Additional Procedure Times Start 06/18/24 08:25:00 Stop 06/18/24 08:50:00 Specialty Service SN Radiology Procedure EBL 0 mL Last Modified By: RAUDEL Vale 06/18/24 14:16:05 Radiology Procedure Details - IR Entry 1 Radiology Sedation Case Times Sedation Total Time 0 Radiology - Fluid/Drainage Radiology Contrast Contrast Used? Yes Dose 2 mL Medication OMNIPAQUE 350 50ML 10/PK Y-540 [facility] [id number] Radiology Flouroscopy Fluoroscopy Used? Yes Fluoro Dose (mGy) 113.44 Fluoro Time 1.3mins Radiology Local Local Used? Yes Local Type: 2% Lidocaine Local Dose 10cc Radiology Procedure Site Site/Location LUMBAR Site Condition No complications Dressing Type Bandaids (Large) Technologist Notes decadron Last Modified By: RAUDEL Vale 06/18/24 08:51:12 General Case Data - IR Entry 1 Case Information Room IR 16 Case Level IR Level 2 Wound Class None Specialty SN Radiology Procedure ASA Class None Diagnosis Preop Diagnosis LOW BACK PAIN POST OP Postop Same As Preop Yes Postop Diagnosis LOW BACK PAIN POST OP Last Modified By: RAUDEL Vale 06/18/24 08:31:43 Procedure Case Times- IR Entry 1 Patient In Procedure Patient In OR 06/18/24 08:10:00 Patient Out of OR 06/18/24 08:55:00 Procedure Start/Stop Procedure Start Time 06/18/24 08:25:00 Procedure Stop Time 06/18/24 08:50:00 Last Modified By: RAUDEL Vale 06/18/24 14:15:04 Allergy Information- IR Entry 1 Allergies Reviewed? Yes Allergies Reviewed Medical Record With Last Modified By: RAUDEL Vale 06/18/24 08:17:35 Radiology Protocols/Time Out- IR Entry 1 Preprocedure Clinician Verifies Correct patient ID When Clinically Confirmation of correct using name & date Indicated side(s) and site(s), or MRN, Accurate Correct diagnostic and procedure, complete radiology tests Informed Consent, H & P available, Required update immediately blood products, prior to procedure, if implants, devices applicable and/or special equipment available OR/Procedure Room/Bedside Time 06/18/24 08:25:00 Clinician Verifies Correct patient identity including EMR & records using name and date or medical record number, Accurate procedure consent form, Correct patient position, Necessary equipment is available, Anticipated non-routine events with surgical team (case duration, estimated blood loss, patient specific concerns)., Lemus patient factors for recovery and management identified with surgical team. When Applicable Confirmation correct Team Members TERE FLOYD side and site marked, Present for Time Out Kavin WHITT RN Melanie Relevant images and LTonya Alexis results are properly Tech, Trevor Booker labeled and Violetta Serrano appropriately displayed Instrument Sterility Procedure IR Epidural Injection (SN) Last Modified By: RAUDEL Vale 06/18/24 08:31:32 Skin Prep- IR Entry 1 Procedure IR Epidural Injection (SN) Skin Prep Prep Area Back Side Lower By Trevor Booker Prep Agents Betadine Scrub L Hair Removal Method N/A Last Modified By: RAUDEL Vale 06/18/24 08:23:43 Patient Positioning- IR Entry 1 Procedure IR Epidural Injection Body Position OP Supine (SN) Feet Uncrossed? Yes Pressure Points Yes Checked Last Modified By: RAUDEL Vale 06/18/24 08:23:42 Radiology Procedure Plan - IR Entry 1 Radiology - Nursing Care Plan Outcome Statement The patient Outcome Statement The patient receives demonstrates knowledge Cont. appropriate of the expected medication(s), safely responses to the administered during the operative/invasive perioperative/invasive procedure., The period., The patient is patient's value system, free from signs and lifestyle, ethnicity, symptoms of injury and culture are caused by extraneous considered, respected, objects (equipment, and incorporated in the instrumentation, perioperative plan of sponges, or sharps). care., The patient is free from signs and symptoms of infection., The patient is free from signs and symptoms of injury related to positioning. Radiology - Action Plan Outcomes Met? Yes Community Development Manager RAUDEL Vale Completing Procedure Plan Last Modified By: RAUDEL Vale 06/18/24 08:23:00 Case Comments <None> Finalized By: RAUDEL Vale Document Signatures Signed By: RAUDEL Vale 06/18/24 14:16 RAUDEL Vale 06/18/24 14:18 [facility] 07-31-2024 Note IR Procedure Record Summary Primary Physician: Finalized Date/Time: 06/18/24 14:18:57 Pt. Name: APRIL ROSA Yamilet Huddleston/Sex: 1975 Female Med Rec #: [id number] Physician: Financial #: [id number] Pt. Type: O Room/Bed: / Admit/Disch: 06/18/24 07:04:00 - Institution: Allergies identified in patient's electronic medical record at time of printing on 06/18/24 Entry 1 Entry 2 Entry 3 Substance Actos Compazine Diflucan Reaction Type Allergy Adverse Effect Allergy Last Modified By: Dinorah Grossman [facility] Krista Perez [facility] Carrie Bass [facility] 10/04/22 12:43:58 04/19/20 10:32:01 03/07/24 13:59:13 Entry 4 Entry 5 Entry 6 Substance Imitrex Maxalt Norflex Reaction Type Adverse Effect Adverse Effect Adverse Effect Last Modified By: Krista Perez [facility] Krista Perez Krista Curtis [facility] 04/19/20 10:32:22 04/19/20 10:33:05 04/19/20 10:33:24 Entry 7 Entry 8 Entry 9 Substance Reglan amLODIPine lisinopril Reaction Type Allergy Allergy Allergy Last Modified By: Adi Amador RN, Krista Malone [facility] 04/01/21 12:21:06 04/15/21 08:28:30 04/19/20 11:02:29 Case Attendance- IR Entry 1 Entry 2 Entry 3 Case Attendee TERE FLOYD RN Melanie L Craemer, Alexis Tech PA-Kayil Role Performed Radiology PA/RA Bushing And Broach Operator 1 Circulating Technologist Details Time In 06/18/24 08:25:00 06/18/24 08:10:00 06/18/24 08:10:00 Time Out 06/18/24 08:50:00 06/18/24 08:55:00 06/18/24 08:55:00 Procedure/Preference IR Epidural Injection IR Epidural Injection IR Epidural Injection Card (SN) (SN) (SN) Last Modified By: RAUDEL Vale RN Melanie L Lee, RN Melanie L 06/18/24 14:15:41 06/18/24 14:15:41 06/18/24 14:15:41 Entry 4 Case Attendee Jhony Tool Analyst Violetta Maggie Role Performed Scrub Technologist Details Time In 06/18/24 08:10:00 Time Out 06/18/24 08:55:00 Procedure/Preference IR Epidural Injection Card (SN) Last Modified By: RAUDEL Vale 06/18/24 14:15:41 Radiology Procedures- IR Entry 1 Procedure/Preference IR Epidural Injection Actual Procedure IR EPIDURAL INJECTION Card (SN) Primary Procedure Yes Primary Surgeon TERE FLOYD PA-C Anesthesia/Sedation Local Type Additional Procedure Times Start 06/18/24 08:25:00 Stop 06/18/24 08:50:00 Specialty Service SN Radiology Procedure EBL 0 mL Last Modified By: RAUDEL Vale 06/18/24 14:16:05 Radiology Procedure Details - IR Entry 1 Radiology Sedation Case Times Sedation Total Time 0 Radiology - Fluid/Drainage Radiology Contrast Contrast Used? Yes Dose 2 mL Medication OMNIPAQUE 350 50ML 10/PK Y-540 [facility] [id number] Radiology Flouroscopy Fluoroscopy Used? Yes Fluoro Dose (mGy) 113.44 Fluoro Time 1.3mins Radiology Local Local Used? Yes Local Type: 2% Lidocaine Local Dose 10cc Radiology Procedure Site Site/Location LUMBAR Site Condition No complications Dressing Type Bandaids (Large) Technologist Notes decadron Last Modified By: RAUDEL Vale 06/18/24 08:51:12 General Case Data - IR Entry 1 Case Information Room IR 16 Case Level IR Level 2 Wound Class None Specialty SN Radiology Procedure ASA Class None Diagnosis Preop Diagnosis LOW BACK PAIN POST OP Postop Same As Preop Yes Postop Diagnosis LOW BACK PAIN POST OP Last Modified By: RAUDEL Vale 06/18/24 08:31:43 Procedure Case Times- IR Entry 1 Patient In Procedure Patient In OR 06/18/24 08:10:00 Patient Out of OR 06/18/24 08:55:00 Procedure Start/Stop Procedure Start Time 06/18/24 08:25:00 Procedure Stop Time 06/18/24 08:50:00 Last Modified By: RAUDEL Vale 06/18/24 14:15:04 Allergy Information- IR Entry 1 Allergies Reviewed? Yes Allergies Reviewed Medical Record With Last Modified By: RAUDEL Vale 06/18/24 08:17:35 Radiology Protocols/Time Out- IR Entry 1 Preprocedure Clinician Verifies Correct patient ID When Clinically Confirmation of correct using name & date Indicated side(s) and site(s), or MRN, Accurate Correct diagnostic and procedure, complete radiology tests Informed Consent, H & P available, Required update immediately blood products, prior to procedure, if implants, devices applicable and/or special equipment available OR/Procedure Room/Bedside Time 06/18/24 08:25:00 Clinician Verifies Correct patient identity including EMR & records using name and date or medical record number, Accurate procedure consent form, Correct patient position, Necessary equipment is available, Anticipated non-routine events with surgical team (case duration, estimated blood loss, patient specific concerns)., Lemus patient factors for recovery and management identified with surgical team. When Applicable Confirmation correct Team Members TERE FLOYD side and site marked, Present for Time Out Kavin WHITT RN Melanie Relevant images and LTonya Alexis results are properly Tech, [place], Tool Analyst labeled and Violetta L appropriately displayed Instrument Sterility Procedure IR Epidural Injection (SN) Last Modified By: RAUDEL Vale 06/18/24 08:31:32 Skin Prep- IR Entry 1 Procedure IR Epidural Injection (SN) Skin Prep Prep Area Back Side Lower By [place], Tool Analyst Violetta Prep Agents Betadine Scrub L Hair Removal Method N/A Last Modified By: RAUDEL Vale 06/18/24 08:23:43 Patient Positioning- IR Entry 1 Procedure IR Epidural Injection Body Position OP Supine (SN) Feet Uncrossed? Yes Pressure Points Yes Checked Last Modified By: RAUDEL Vale 06/18/24 08:23:42 Radiology Procedure Plan - IR Entry 1 Radiology - Nursing Care Plan Outcome Statement The patient Outcome Statement The patient receives demonstrates knowledge Cont. appropriate of the expected medication(s), safely responses to the administered during the operative/invasive perioperative/invasive procedure., The period., The patient is patient's value system, free from signs and lifestyle, ethnicity, symptoms of injury and culture are caused by extraneous considered, respected, objects (equipment, and incorporated in the instrumentation, perioperative plan of sponges, or sharps). care., The patient is free from signs and symptoms of infection., The patient is free from signs and symptoms of injury related to positioning. Radiology - Action Plan Outcomes Met? Yes Community Development Manager RAUDEL Vale Completing Procedure Plan Last Modified By: RAUDEL Vale 06/18/24 08:23:00 Case Comments Finalized By: RAUDEL Vale Document Signatures Signed By: RAUDEL Vale 06/18/24 14:16 RAUDEL Vale 06/18/24 14:18 [id number] Evaluation + Plan noteExtracted from: Title:Preprocedure HP Author:HUY FLOYD PA-C Date:06/18/24 IR PREPROCEDURE H&P UPDATE IF A HISTORY AND PHYSICAL EXAMINATION HAS BEEN COMPLETED PRIOR TO ADMISSION TO THE HOSPITAL, AN UPDATED EXAMINATION MUST BE COMPLETED AND DOCUMENTED WITHIN 24 HOURS AFTER ADMISSION OR REGISTRATION BUT BEFORE A SURGICAL PROCEDURE. I have examined the patient, reviewed the H&P, and there are no changes unless noted below: _ The most recent H&P/Office Note was performed on 06/05/2024 and can be found in the [facility] ([facility]). Tere Floyd PA-C Interventional Radiology IR Dept [id number] Available on Tyba Future Appointments Appointment Date:06/20/2024 08:00:00 AM Scheduled Provider:Ada Quiñones PTA 5496 Location:[facility] Appointment Type:PT Pool Treatment Appointment Date:06/23/2024 07:30:00 AM Scheduled Provider: Location:[facility] Appointment Type:PT Pool Treatment Appointment Date:06/27/2024 08:45:00 AM Scheduled Provider:Ada Quiñones PTA 5496 Location:[facility] Appointment Type:PT Pool Treatment Appointment Date:06/30/2024 07:15:00 AM Scheduled Provider: Location:[facility] Appointment Type:PT Pool Treatment Appointment Date:07/03/2024 10:15:00 AM Scheduled Provider: Location:[facility] Appointment Type:NS OV Appointment Date:07/04/2024 08:00:00 AM Scheduled Provider: Location:[facility] Appointment Type:PT Pool Treatment Appointment Date:07/07/2024 07:30:00 AM Scheduled Provider: Location:[facility] Appointment Type:PT Pool Treatment Appointment Date:07/11/2024 08:00:00 AM Scheduled Provider: Location:[facility] Appointment Type:PT Pool Treatment Appointment Date:07/14/2024 07:30:00 AM Scheduled Provider: Location:[facility] Appointment Type:PT Pool Treatment Appointment Date:07/14/2024 08:15:00 AM Scheduled Provider: Location:[facility] Appointment Type:PT Treatment - North Appointment Date:07/17/2024 02:15:00 PM Scheduled Provider:ELIANE HENSON MD Location:[facility] Appointment Type:ENDO OV Appointment Date:11/21/2024 10:00:00 AM Scheduled Provider:KAYCEE ARAUJO DO Location:[facility] Appointment Type:PC OV Follow Up Future Scheduled Tests Laboratory* Thyroid Stimulating Hormone 07/13/24 * Thyroid Stimulating Hormone 01/28/24 * Free T4 07/13/24 * A1C Hemoglobin 07/13/24 * Complete Blood Count 07/13/24 * Lipid Profile 07/13/24 * Lipid Profile 01/28/24 * Albumin/Creatinine Ratio, Random Urine 07/13/24 * Albumin/Creatinine Ratio, Random Urine 01/28/24 * Vitamin D Level 01/28/24 * Complete Metabolic Panel 07/13/24 * Complete Metabolic Panel 01/28/24 Radiology* MA Mammo Screening Bilateral w/ Waldo 03/07/24 [facility] 07-[facility]24 Hospital Discharge instructions Patient Education 06/18/2024 08:53:58 Radiology- Procedure/Biopsy 03/03/2020(CUSTOM) [facility] Radiology Procedure/Biopsy Discharge Instructions Interventional Radiology [facility] Imaging Services [address] [place] [address] Today, you had a . This procedure/biopsy was done to help your doctor diagnose and treat the signs and symptoms you have been experiencing. These instructions should be followed after your procedure to reduce the chance of experiencing complications. Please follow the instructions below to reduce the chance of experiencing complications. Diet: Resume your normal diet as tolerated. Drink extra fluids. Activity: Rest for the remainder of the day. You may resume your normal activity tomorrow. You may bathe/shower after 24 hours. Do not soak or submerge site (including swimming or hot tubs) until a scab forms. No heavy lifting, pushing, or straining. Dressing: Check the site for bleeding. Apply pressure to the site if bleeding excessively and call your physician. Change the band aid as needed; it can be removed after 24 hours. Keep the site dry at all times until a scab forms over the site. Pain Control: The puncture site may be sore for 1 to 2 days following the procedure. Tisd-imx-hxceyhj pain medication should be used for pain or discomfort. Please check with the physician who ordered this procedure for you for their specific recommendations. If your pain is not relieved or becomes more severe, notify the physician who sent you for this procedure. If you were sedated for this procedure: Avoid alcoholic beverages for 24 hours after your procedure. Do not drive or operate heavy machinery for 24 hours after your procedure. Do not make any legal decisions for 24 hours after your procedure. Medication: Please resume on . When to seek medical help: Lightheadedness, dizziness, or fainting. Severe pain or swelling. Severe nausea or vomiting. Infection: fever greater than 101 degrees, chills, redness, warmth, swelling, bleeding, or pus frompuncture site. If you experience any of these issues during the first 24 hours, please follow the instruction below: 8:00 am- 5:00 pm call [phone] After 5:00 pm call [phone] After 24 hours, contact the physician who ordered this procedure for you. Obtaining test results: Please make an appointment with your doctor to obtain your test results. They are usually availablewithin 4 to 7 business days. Do not assume everything is normal if you have not heard from your doctor or medical facility. It is important for you to follow up on all of your test results. Special Instructions: Follow Up Care 06/05/2024 13:55:44 With:Follow up with primary care provider Address:Unknown When: Unknown [facility] 07-31-2024 Summary of episode note Discharge Instructions Thank you for allowing [facility] to assist you with your healthcare needs. The following is importantdischarge information regarding your hospital visit. Your Care Team KAYCEE ARAUJO DO What to do next Scheduled Follow-Up Appointments Appointment Type When With Where Contact Information StatusPT Pool Treatment 06/20/2024 08:00 AM EDT Ada Quiñones PTA 5496 [facility] Confirmed PT Pool Treatment 06/23/2024 07:30 AM EDT [facility] Confirmed PT Pool Treatment 06/27/2024 08:45 AM EDT Ada Quiñones PTA 5496 [facility] Confirmed PT Pool Treatment 06/30/2024 07:15 AM EDT [facility] Confirmed NS OV 07/03/2024 10:15 AM EDT Neurosurgery [address] [id number] Confirmed PT Pool Treatment 07/04/2024 08:00 AM EDT [facility] Confirmed PT Pool Treatment 07/07/2024 07:30 AM EDT [facility] Confirmed PT Pool Treatment 07/11/2024 08:00 AM EDT [facility] Confirmed PT Pool Treatment 07/14/2024 07:30 AM EDT [facility] Confirmed PT Treatment - [place] 07/14/2024 08:15 AM EDT [facility] Confirmed ENDO OV 07/17/2024 02:15 PM EDT ELIANE HENSON MD [facility] [address] [place] [address]- [phone] Confirmed PC OV Follow Up 11/21/2024 10:00 AM KAYCEE VALLE DO [facility] Confirmed Follow Up Appointments Follow Up with Follow up with primary care provider The Following Activity and Diet Have Been Ordered for You No qualifying data available. No qualifying data available. The Following Equipment Has Been Ordered for You No qualifying data available. The Following Treatments Have Been Ordered for You Discharge Labs No qualifying data available. Discharge Radiology No qualifying data available. Other Therapies No qualifying data available. Post Acute Orders No qualifying data available. Someone Will Contact You Regarding These Home Health Referrals No home referrals have been ordered for you. No one will call you. Allergies Imitrex(Severe) Hypotension amLODIPine (Mild) lip swelling Actos blurred vision Compazine Anxiety Diflucan Lip swelling Maxalt Hypotension Norflex Anxiety Reglan lisinopril angioedema Medications Please ask your primary doctor or pharmacist before taking any other medication not listed, including over the counter drugs, herbal medications, vitamins and or supplements as they may interact withyour home medications. What How Much When Why Instructions Last Dose Unchanged acetaminophen (acetaminophen 650 mg oral tablet, extended release) 2 tab(s) by mouth Every 8 hours as needed for as needed for pain Unchanged albuterol (Albuterol (Eqv-ProAir HFA) 90 mcg/ inh inhalation aerosol) 2 puff(s) by inhalation Every 4 hours as needed for as needed for wheezing Unchanged ALPRAZolam (ALPRAZolam 0.5 mg oral tablet) 1 tab(s) by mouth Daily at bedtime as needed for as needed for anxiety Anxiety Duration: 21 Days Unchanged aspirin (aspirin 81 mg oral delayed release tablet) 1 tab(s) by mouth Every day Unchanged atorvastatin (atorvastatin 10 mg oral tablet) 1 tab(s) by mouth Once a day Unchanged benzonatate (benzonatate 100 mg oral capsule) 1 cap Unchanged budesonide (budesonide 3 mg oral delayed release capsule) 1 cap by mouth Once a day (in the morning) Unchanged budesonide-formoterol (Symbicort 80 mcg-4.5 mcg/ inh Inhaler) 2 puff(s) by inhalation Two (2) times a day Asthma Unchanged buPROPion (buPROPion 150 mg/ 24 hours (XL) oral tablet, extended release) See instructions TAKE 1 TABLET BY MOUTH EVERY DAY Unchanged cetirizine (cetirizine 10 mg oral capsule) 1 cap by mouth Once a day as needed for as needed for allergy symptoms Unchanged cholecalciferol (Vitamin D3 250 mcg (10,000 intl units) oral capsule) 1 cap by mouth Every other day Unchanged cloNIDine (cloNIDine 0.3 mg oral tablet) 1 tab(s) by mouth Two (2) times a day Unchanged cyclobenzaprine (cyclobenzaprine 10 mg oral tablet) 1 tab(s) by mouth Three (3) times a day as needed for for muscle spasm Lumbar foraminal stenosis Encounter for surgical aftercare following surgery of nervous system Unchanged DME (DME MISCellaneous) See instructions freestyle philly 3 sensors 1 sensor every 14 days #2kits for 28 days and 3 refills E11.65. Unchanged DME (DME MISCellaneous) See instructions Freestyle Philly 3 Sensor. 1 sensor every 14 days. 2 sensors per 30 days. 3 refills. E11.9 Unchanged docusate (Colace 100 mg oral capsule) 1 cap by mouth Two (2) times a day as needed for Constipation Constipation Unchanged gabapentin (gabapentin 300 mg oral capsule) 1 cap by mouth Three (3) times a day Lumbar foraminal stenosis Encounter for surgical aftercare following surgery of nervous system Duration: 30 Days Unchanged levalbuterol (Xopenex 0.63 mg/ 3 mL inhalation solution) 3 Milliliter Nebulized inhalation Three (3) times a day as needed for as needed for wheezing Duration: 30 Days Unchanged metFORMIN (MetFORMIN (Eqv-Glucophage XR) 500 mg oral tablet, EXTENDED RELEASE) 3 tab(s) by mouth Once a day Unchanged montelukast (Singulair 10 mg oral tablet) 1 tab(s) by mouth Once a day Asthma Unchanged omeprazole (omeprazole 40 mg oral delayed release capsule) 1 cap by mouth Once a day Unchanged ondansetron (ondansetron 4 mg oral tablet, disintegrating) 1 tab(s) by mouth Three (3) times a day as needed for Nausea/Vomiting Unchanged propranolol (propranolol 40 mg oral tablet) 1 tab(s) by mouth Once a day Unchanged QUEtiapine (QUEtiapine 50 mg oral tablet) See instructions TAKE 1 TABLET BY MOUTH EVERYDAY AT BEDTIME Unchanged rosuvastatin (rosuvastatin 20 mg oral tablet) 1 tab(s) by mouth Every day Unchanged spironolactone (spironolactone 50 mg oral tablet) 1 tab(s) by mouth Once a day Unchanged tirzepatide (Mounjaro 7.5 mg/ 0.5 mL subcutaneous solution) 7.5 Milligram Subcutaneous Every week rotate injection sites Unchanged tiZANidine (tiZANidine 4 mg oral tablet) 1 tab(s) by mouth Every 8 hours as needed for as needed for muscle spasm Unchanged vitamin E (vitamin E 100 intl units oral capsule) 1 cap by mouth Two (2) times a day Please take this list to your next doctor s visit. Bring all medications you take, including over the counter medications, herbals and other supplements with you to your doctor s visit. Patients and families are reminded to discard old lists and to update any records with all medication providers or retail pharmacies. Education Materials [facility] Radiology Procedure/Biopsy Discharge Instructions Interventional Radiology [facility] Imaging Services [address] [place] [address] Today, you had a . This procedure/biopsy was done to help your doctor diagnose and treat the signs and symptoms you have been experiencing. These instructions should be followed after your procedure to reduce the chance of experiencing complications. Please follow the instructions below to reduce the chance of experiencing complications. Diet: Resume your normal diet as tolerated. Drink extra fluids. Activity: Rest for the remainder of the day. You may resume your normal activity tomorrow. You may bathe/shower after 24 hours. Do not soak or submerge site (including swimming or hot tubs) until a scab forms. No heavy lifting, pushing, or straining. Dressing: Check the site for bleeding. Apply pressure to the site if bleeding excessively and call your physician. Change the band aid as needed; it can be removed after 24 hours. Keep the site dry at all times until a scab forms over the site. Pain Control: The puncture site may be sore for 1 to 2 days following the procedure. Ckta-ypp-ssqrcwb pain medication should be used for pain or discomfort. Please check with the physician who ordered this procedure for you for their specific recommendations. If your pain is not relieved or becomes more severe, notify the physician who sent you for this procedure. If you were sedated for this procedure: Avoid alcoholic beverages for 24 hours after your procedure. Do not drive or operate heavy machinery for 24 hours after your procedure. Do not make any legal decisions for 24 hours after your procedure. Medication: Please resume on . When to seek medical help: Lightheadedness, dizziness, or fainting. Severe pain or swelling. Severe nausea or vomiting. Infection: fever greater than 101 degrees, chills, redness, warmth, swelling, bleeding, or pus frompuncture site. If you experience any of these issues during the first 24 hours, please follow the instruction below: 8:00 am- 5:00 pm call [phone] After 5:00 pm call [phone] After 24 hours, contact the physician who ordered this procedure for you. Obtaining test results: Please make an appointment with your doctor to obtain your test results. They are usually availablewithin 4 to 7 business days. Do not assume everything is normal if you have not heard from your doctor or medical facility. It is important for you to follow up on all of your test results. Special Instructions: Additional Information VACCINATE! IT SAVES LIVES! Members of the community who have not yet received the COVID-19 vaccine and would like to receive it can visit one of [facility] vaccine clinics. There are many vaccine clinic locations within the [facility]. For locations and available times, please visit [email or web address].[place].gov/. It is important to note that some COVID mobile vaccine clinics are held outdoors and may be canceled in rainy or stormy conditions. To learn more about pediatric vaccinations (ages 5-11), we invite you to visit the [facility] webpage. https://www.[facility].org/pages/1760-Hkreh-Ngntflcnqwo-Jddbevmojb-Raman-Aiy stions.htmlTo learn more about the COVID-19 vaccine, we invite you to visit the CDC website for a list of frequently asked questions.https://www.cdc.gov/coronavirus/2019-ncov/vaccines/faq.html [facility] Patient Portal Access Instructions: Stay connected with your healthcare team and access your personal medical information anytime with the [facility] Patient Portal. Please follow the directions below to create your Drive [employer]O account: 1.Access the email account you provided upon registration to the hospital/physician office.2.Look for an invitation email from [facility].3.Open the email and access the invitation link: AcceptInvitation to [facility].4.Fill in the required garcia to create your account. To access your account, visit [email or web address]. Click the blue button labeled Access Patient Portal and then log in with the username and password that you created in the steps above. You will be able to view your test results, lab results, a summary of your visits, upcoming appointments and more. There is also a convenient messaging option where you can send secure messages to your p rovider. In addition, you will have the ability to download any documents or summaries to your computer and/or send the information securely to a physician. Remember that your healthcare information is confidential, so carefully consider who you will allowto register on the [facility] [employer] Patient Portal for access to your information. You can also access the [facility] Patient Portal on the [facility] demario. Simply click on Patient Portal and then log into your account. If you would like to receive a full copy of your medical records, please contact the [facility] Medical Records Department by calling [phone], Sunday through Sunday between 8 a.m. and 4:30 p.m. HOW TO SAFELY DISPOSE OF PRESCRIPTION MEDICATIONS Please use one of the following methods to safely dispose of your unused medications. 1.Use a drug disposal kit: the drug disposal pouch allows you to safely discard your old and unuseddrugs. Ask your nurse to give you one when you are discharged.2.Visit a local take-back location: Many local pharmacies and police departments have programs that collect old and unwanted prescriptiondrugs. Call your local pharmacy or go to http://Sympoz (dba Craftsy).imbookin (Pogby)/6S8Ti3g to find one close to you.3.Make use of household items: Use cat litter or old coffee grounds to dispose medications if other options arenot available. Mix your drugs with these household products, seal them in an airtight container andthrow it into the garbage. Call [facility]: [phone] to be sure your drugs can be [...] a CHART COPY. Signatures Patient Education Materials Radiology- Procedure/Biopsy 03/03/2020(CUSTOM) Medication Leaflets My discharge plan and instructions have been reviewed and explained to me and I,APRIL ROSA understand my current condition and have read and understand these discharge instructions. I have received a written copy of the plan/instructions. If I have questions, I am aware that I should contact my doctor. Patient/Manager Oracle Database Signature: Date/Time: Relationship to Patient: Witness Name/Signature: Date/Time: [id number] History and physical note IR PREPROCEDURE H&P UPDATE IF A HISTORY AND PHYSICAL EXAMINATION HAS BEEN COMPLETED PRIOR TO ADMISSION TO THE HOSPITAL, AN UPDATED EXAMINATION MUST BE COMPLETED AND DOCUMENTED WITHIN 24 HOURS AFTER ADMISSION OR REGISTRATION BUT BEFORE A SURGICAL PROCEDURE. I have examined the patient, reviewed the H&P, and there are no changes unless noted below: _ The most recent H&P/Office Note was performed on 06/05/2024 and can be found in the [facility] Electronic [facility] Records ([facility]). Tere Floyd PA-C Interventional Radiology IR Dept [id number] Available on Tyba Digitally Signed by TERE FLOYD PA-C on 06/18/2024 08:06 AM Digitally Signed by RAIMUNDO FRAZIER MD on 06/19/2024 12:29 AM [id number] Note Discharge Instructions Thank you for allowing [facility] to assist you with your healthcare needs. The following is importantdischarge information regarding your hospital visit. Your Care Team KAYCEE ARAUJO DO Your Diagnosis Acute postoperative pain Asthma Asthma Constipation Muscle spasm What to do next Instructions From Your Doctor May resume 81mg aspirin on 05/01/[address] [place] No multivitamins or NSAIDs (no Aleve, Motrin, Ibuprofen, Naproxen, etc.) until cleared by neurosurgeon No lifting more than 10 pounds Avoid bending/twisting at the waist No driving for at least 2 weeks; No driving while taking narcotics or muscle relaxants Keep surgical incision clean and dry at all times until healed (about 2 weeks postoperatively) Maintain surgical dressing over incision for 7 days postoperatively as it is embedded with an antibiotic. After 1 week postop, remove dressing and begin to change daily using dry sterile gauze for about 7-10 days. May leave open to air once fulled healed. Okay to shower, but cover surgical incision with watertight dressing until healed (about 2 weeks postoperatively) No soaking incision site for 6 weeks postoperatively (No tub baths, hot tubs, saunas, swimming, etc.) If surgical incision site becomes red, swollen, painful, opens and/or drainage around site or if you develop a fever- Contact neurosurgery office immediately Scheduled Follow-Up Appointments Appointment Type When With Where Contact Information StatusENDO OV 07/17/2024 02:15 PM ELIANE CASE MD [facility] [address] [facility] [facility] [address] [place] [address]- [phone] Confirmed PC OV Follow Up 11/21/2024 10:00 AM KAYCEE VALLE DO [facility] Confirmed Follow Up Appointments Follow Up with [facility] has been arranged for you. Please call them at [phone] if you do not hear from them in 1-2 days. When:Within 1-2 days Follow Up with KAYCEE ARAUJO DO, Internal Medicine, [facility], [facility] When:Within 1-2 days Where:[address] [address]- Additional Information: Please call the office to schedule a follow-up appointment. Follow Up with BRITTANY LEE, Neurosurgery When:05/08/2024 09:15 AM EDT Where:[address] [facility] [address] [facility] [place] [address]- [phone] Additional Information: You are scheduled for a follow up appointment with 's nurse practitioner on 05/08/2024 at 915am. This appointment is located at the [facility] Physician Office Building, [address]. The Following Activity and Diet Have Been Ordered for You No qualifying data available. No qualifying data available. The Following Equipment Has Been Ordered for You No qualifying data available. The Following Treatments Have Been Ordered for You Discharge Labs No qualifying data available. Discharge Radiology No qualifying data available. Other Therapies No qualifying data available. Post Acute Orders No qualifying data available. Someone Will Contact You Regarding These Home Health Referrals No home referrals have been ordered for you. No one will call you. Allergies Imitrex(Severe) Hypotension amLODIPine (Mild) lip swelling Actos blurred vision Compazine Anxiety Diflucan Lip swelling Maxalt Hypotension Norflex Anxiety Reglan lisinopril angioedema Medications Please ask your primary doctor or pharmacist before taking any other medication not listed, including over the counter drugs, herbal medications, vitamins and or supplements as they may interact withyour home medications. What How Much When Why Instructions Last Dose New acetaminophen-oxyCODONE (acetaminophen-oxyCODONE 325 mg-5 mg oral tablet) See instructions Acute postoperative pain Take 1 tab every 6 hours as needed for pain scale 4-6. Take 2 tabs every 6 hours as needed for painscale 7-10. Do not exceed 6 tabs a day. Do not exceed 4000mg acetaminophen a day. No driving and/ or operating machinery., As needed for for pain Pickup at [facility]/pharmacy #[id number] New docusate (Colace 100 mg oral capsule) 1 cap by mouth Two (2) times a day as needed for Constipation Constipation Pickup at [facility]/pharmacy #[id number] New tiZANidine (tiZANidine 4 mg oral tablet) 1 tab(s) by mouth Three (3) times a day as needed for Muscle spasm Muscle spasm Pickup at [facility]/pharmacy #[id number] Unchanged albuterol (Albuterol (Eqv-ProAir HFA) 90 mcg/ inh inhalation aerosol) 2 puff(s) by inhalation Every 4 hours as needed for as needed for wheezing Unchanged atorvastatin (atorvastatin 10 mg oral tablet) 1 tab(s) by mouth Once a day Unchanged budesonide (budesonide 3 mg oral delayed release capsule) 1 cap by mouth Once a day (in the morning) Unchanged budesonide-formoterol (Symbicort 80 mcg-4.5 mcg/ inh Inhaler) 2 puff(s) by inhalation Two (2) times a day Asthma Unchanged buPROPion (buPROPion 150 mg/ 24 hours (XL) oral tablet, extended release) See instructions TAKE 1 TABLET BY MOUTH EVERY DAY Unchanged cetirizine (cetirizine 10 mg oral capsule) 1 cap by mouth Once a day as needed for as needed for allergy symptoms Unchanged cloNIDine (cloNIDine 0.3 mg oral tablet) 1 tab(s) by mouth Two (2) times a day Unchanged DME (DME MISCellaneous) See instructions freestyle philly 3 sensors 1 sensor every 14 days #2kits for 28 days and 3 refills E11.65. Unchanged DME (DME MISCellaneous) See instructions Freestyle Philly 3 Sensor. 1 sensor every 14 days. 2 sensors per 30 days. 3 refills. E11.9 Unchanged levalbuterol (Xopenex 0.63 mg/ 3 mL inhalation solution) 3 Milliliter Nebulized inhalation Three (3) times a day as needed for as needed for wheezing Duration: 30 Days Unchanged metFORMIN (MetFORMIN (Eqv-Glucophage XR) 500 mg oral tablet, EXTENDED RELEASE) 3 tab(s) by mouth Once a day Unchanged montelukast (Singulair 10 mg oral tablet) 1 tab(s) by mouth Once a day Asthma Unchanged omeprazole (omeprazole 40 mg oral delayed release capsule) 1 cap by mouth Once a day Unchanged ondansetron (ondansetron 4 mg oral tablet, disintegrating) 1 tab(s) by mouth Three (3) times a day as needed for Nausea/Vomiting Unchanged propranolol (propranolol 40 mg oral tablet) 1 tab(s) by mouth Once a day Unchanged QUEtiapine (QUEtiapine 50 mg oral tablet) See instructions TAKE 1 TABLET BY MOUTH EVERYDAY AT BEDTIME Unchanged rosuvastatin (rosuvastatin 20 mg oral tablet) 1 tab(s) by mouth Every day Unchanged spironolactone (spironolactone 50 mg oral tablet) 1 tab(s) by mouth Once a day Unchanged tirzepatide (Mounjaro 7.5 mg/ 0.5 mL subcutaneous solution) 7.5 Milligram Subcutaneous Every week rotate injection sites Pharmacy Information [facility]/pharmacy #[id number]: [address], [place] [phone] What How Much When Comments Stop Taking aspirin (aspirin 81 mg oral tablet, chewable) 1 tab(s) by mouth Once a day with a meal Stop Taking biotin (biotin 10 mg oral tablet) 1 tab(s) by mouth Once a day Stop Taking cholecalciferol (Vitamin D3 250 mcg (10,000 intl units) oral capsule) 1 cap by mouth Every other day Next dose Stop Taking herbal/ nutritional product (Probiotic) 1 cap by mouth Once a day Stop Taking methylPREDNISolone (Medrol Dosepak 4 mg oral tablet) Per Dosepak Instructions by mouth Every day Duration: 6 Days as directed on package labeling Stop Taking multivitamin with minerals (Calcium and Magnesium oral tablet) 1 tab(s) by mouth Once a day 750mg Stop Taking vitamin E (vitamin E 400 intl units oral capsule) 1 cap by mouth Two (2) times a day Please take this list to your next doctor s visit. Bring all medications you take, including over the counter medications, herbals and other supplements with you to your doctor s visit. Patients and families are reminded to discard old lists and to update any records with all medication providers or retail pharmacies. Additional Information VACCINATE! IT SAVES LIVES! Members of the community who have not yet received the COVID-19 vaccine and would like to receive it can visit one of [facility] vaccine clinics. There are many vaccine clinic locations within the [facility]. For locations and available times, please visit [email or web address] It is important to note that some COVID mobile vaccine clinics are held outdoors and may be canceled in rainy or stormy conditions. To learn more about pediatric vaccinations (ages 5-11), we invite you to visit the [facility] webpage. https://www.[facility].org/pages/7234-Nypyq-Khvhdjnapkf-Ykolhcewni-Dafyp-Edo stions.htmlTo learn more about the COVID-19 vaccine, we invite you to visit the CDC website for a list of frequently asked questions.https://www.cdc.gov/coronavirus/2019-ncov/vaccines/faq.html [facility] Patient Portal Access Instructions: Stay connected with your healthcare team and access your personal medical information anytime with the [facility] Patient Portal. Please follow the directions below to create your [facility] account: 1.Access the email account you provided upon registration to the hospital/physician office.2.Look for an invitation email from [facility].3.Open the email and access the invitation link: AcceptInvitation to [facility].4.Fill in the required garcia to create your account. To access your account, visit [email or web address] [email or web address]. Click the blue button labeled Access Patient Portal and then log in with the username and password that you created in the steps above. You will be able to view your test results, lab results, a summary of your visits, upcoming appointments and more. There is also a convenient messaging option where you can send secure messages to your p rovider. In addition, you will have the ability to download any documents or summaries to your computer and/or send the information securely to a physician. Remember that your healthcare information is confidential, so carefully consider who you will allowto register on the [facility] Patient Portal for access to your information. You can also access the [facility] Patient Portal on the [facility] demario. Simply click on Patient Portal and then log into your account. If you would like to receive a full copy of your medical records, please contact the [facility] Medical Records Department by calling [phone], Sunday through Sunday between 8 a.m. and 4:30 p.m. HOW TO SAFELY DISPOSE OF PRESCRIPTION MEDICATIONS Please use one of the following methods to safely dispose of your unused medications. 1.Use a drug disposal kit: the drug disposal pouch allows you to safely discard your old and unuseddrugs. Ask your nurse to give you one when you are discharged.2.Visit a local take-back location: Many local pharmacies and police departments have programs that collect old and unwanted prescriptiondrugs. Call your local pharmacy or go to http://Sympoz (dba Craftsy).imbookin (Pogby)/8Z2Ae7q to find one close to you.3.Make use of household items: Use cat litter or old coffee grounds to dispose medications if other options arenot available. Mix your drugs with these household products, seal them in an airtight container andthrow it into the garbage. Call [facility]: [phone] to be sure your drugs can be [...] a CHART COPY. Signatures Patient Education Materials Medication Leaflets My discharge plan and instructions have been reviewed and explained to me and I,APRIL ROSA understand my current condition and have read and understand these discharge instructions. I have received a written copy of the plan/instructions. If I have questions, I am aware that I should contact my doctor. Patient/Manager Oracle Database Signature: Date/Time: Relationship to Patient: Witness Name/Signature: [facility]Time[id number] Note Discharge Instructions Thank you for allowing [facility] to assist you with your healthcare needs. The following is importantdischarge information regarding your hospital visit. Your Care Team KAYCEE ARAUJO DO Your Diagnosis Acute postoperative pain Asthma Asthma Constipation Muscle spasm What to do next Instructions From Your Doctor May resume 81mg aspirin on 05/01/[address] Olmstead No multivitamins or NSAIDs (no Aleve, Motrin, Ibuprofen, Naproxen, etc.) until cleared by neurosurgeon No lifting more than 10 pounds Avoid bending/twisting at the waist No driving for at least 2 weeks; No driving while taking narcotics or muscle relaxants Keep surgical incision clean and dry at all times until healed (about 2 weeks postoperatively) Maintain surgical dressing over incision for 7 days postoperatively as it is embedded with an antibiotic. After 1 week postop, remove dressing and begin to change daily using dry sterile gauze for about 7-10 days. May leave open to air once fulled healed. Okay to shower, but cover surgical incision with watertight dressing until healed (about 2 weeks postoperatively) No soaking incision site for 6 weeks postoperatively (No tub baths, hot tubs, saunas, swimming, etc.) If surgical incision site becomes red, swollen, painful, opens and/or drainage around site or if you develop a fever- Contact neurosurgery office immediately Scheduled Follow-Up Appointments Appointment Type When With Where Contact Information StatusENDO 07/17/2024 02:15 PM ELIANE CASE [facility]man [facility] [address] [place] [address]- [phone] Confirmed PC OV Follow Up 11/21/2024 10:00 AM KAYCEE VALLE DO [facility] Confirmed Follow Up Appointments Follow Up with [facility] has been arranged for you. Please call them at [phone] if you do not hear from them in 1-2 days. When:Within 1-2 days Follow Up with KAYCEE ARAUJO DO, Internal Medicine, [facility], [facility] When:Within 1-2 days Where:[address] [place] [address]- Additional Information: Please call the office to schedule a follow-up appointment. Follow Up with BRITTANY LEE, Neurosurgery When:05/08/2024 09:15 AM EDT Where:[address] [facility] [place] [address]- [phone] Additional Information: You are scheduled for a follow up appointment with 's nurse practitioner on 05/08/2024 at 915am. This appointment is located at the [facility] Physician Office Building, [address]. The Following Activity and Diet Have Been Ordered for You No qualifying data available. No qualifying data available. The Following Equipment Has Been Ordered for You No qualifying data available. The Following Treatments Have Been Ordered for You Discharge Labs No qualifying data available. Discharge Radiology No qualifying data available. Other Therapies No qualifying data available. Post Acute Orders No qualifying data available. Someone Will Contact You Regarding These Home Health Referrals No home referrals have been ordered for you. No one will call you. Allergies Imitrex(Severe) Hypotension amLODIPine (Mild) lip swelling Actos blurred vision Compazine Anxiety Diflucan Lip swelling Maxalt Hypotension Norflex Anxiety Reglan lisinopril angioedema Medications Please ask your primary doctor or pharmacist before taking any other medication not listed, including over the counter drugs, herbal medications, vitamins and or supplements as they may interact withyour home medications. What How Much When Why Instructions Last Dose New acetaminophen-oxyCODONE (acetaminophen-oxyCODONE 325 mg-5 mg oral tablet) See instructions Acute postoperative pain Take 1 tab every 6 hours as needed for pain scale 4-6. Take 2 tabs every 6 hours as needed for painscale 7-10. Do not exceed 6 tabs a day. Do not exceed 4000mg acetaminophen a day. No driving and/ or operating machinery., As needed for for pain Pickup at [facility]/pharmacy #[id number] New docusate (Colace 100 mg oral capsule) 1 cap by mouth Two (2) times a day as needed for Constipation Constipation Pickup at [facility]/pharmacy #[id number] New tiZANidine (tiZANidine 4 mg oral tablet) 1 tab(s) by mouth Three (3) times a day as needed for Muscle spasm Muscle spasm Pickup at [facility]/pharmacy #[id number] Unchanged albuterol (Albuterol (Eqv-ProAir HFA) 90 mcg/ inh inhalation aerosol) 2 puff(s) by inhalation Every 4 hours as needed for as needed for wheezing Unchanged atorvastatin (atorvastatin 10 mg oral tablet) 1 tab(s) by mouth Once a day Unchanged budesonide (budesonide 3 mg oral delayed release capsule) 1 cap by mouth Once a day (in the morning) Unchanged budesonide-formoterol (Symbicort 80 mcg-4.5 mcg/ inh Inhaler) 2 puff(s) by inhalation Two (2) times a day Asthma Unchanged buPROPion (buPROPion 150 mg/ 24 hours (XL) oral tablet, extended release) See instructions TAKE 1 TABLET BY MOUTH EVERY DAY Unchanged cetirizine (cetirizine 10 mg oral capsule) 1 cap by mouth Once a day as needed for as needed for allergy symptoms Unchanged cloNIDine (cloNIDine 0.3 mg oral tablet) 1 tab(s) by mouth Two (2) times a day Unchanged DME (DME MISCellaneous) See instructions freestyle philly 3 sensors 1 sensor every 14 days #2kits for 28 days and 3 refills E11.65. Unchanged DME (DME MISCellaneous) See instructions Freestyle Philly 3 Sensor. 1 sensor every 14 days. 2 sensors per 30 days. 3 refills. E11.9 Unchanged levalbuterol (Xopenex 0.63 mg/ 3 mL inhalation solution) 3 Milliliter Nebulized inhalation Three (3) times a day as needed for as needed for wheezing Duration: 30 Days Unchanged metFORMIN (MetFORMIN (Eqv-Glucophage XR) 500 mg oral tablet, EXTENDED RELEASE) 3 tab(s) by mouth Once a day Unchanged montelukast (Singulair 10 mg oral tablet) 1 tab(s) by mouth Once a day Asthma Unchanged omeprazole (omeprazole 40 mg oral delayed release capsule) 1 cap by mouth Once a day Unchanged ondansetron (ondansetron 4 mg oral tablet, disintegrating) 1 tab(s) by mouth Three (3) times a day as needed for Nausea/Vomiting Unchanged propranolol (propranolol 40 mg oral tablet) 1 tab(s) by mouth Once a day Unchanged QUEtiapine (QUEtiapine 50 mg oral tablet) See instructions TAKE 1 TABLET BY MOUTH EVERYDAY AT BEDTIME Unchanged rosuvastatin (rosuvastatin 20 mg oral tablet) 1 tab(s) by mouth Every day Unchanged spironolactone (spironolactone 50 mg oral tablet) 1 tab(s) by mouth Once a day Unchanged tirzepatide (Mounjaro 7.5 mg/ 0.5 mL subcutaneous solution) 7.5 Milligram Subcutaneous Every week rotate injection sites Pharmacy Information [facility]/pharmacy #[id number]: [address], [place] [phone] What How Much When Comments Stop Taking aspirin (aspirin 81 mg oral tablet, chewable) 1 tab(s) by mouth Once a day with a meal Stop Taking biotin (biotin 10 mg oral tablet) 1 tab(s) by mouth Once a day Stop Taking cholecalciferol (Vitamin D3 250 mcg (10,000 intl units) oral capsule) 1 cap by mouth Every other day Next dose Stop Taking herbal/ nutritional product (Probiotic) 1 cap by mouth Once a day Stop Taking methylPREDNISolone (Medrol Dosepak 4 mg oral tablet) Per Dosepak Instructions by mouth Every day Duration: 6 Days as directed on package labeling Stop Taking multivitamin with minerals (Calcium and Magnesium oral tablet) 1 tab(s) by mouth Once a day 750mg Stop Taking vitamin E (vitamin E 400 intl units oral capsule) 1 cap by mouth Two (2) times a day Please take this list to your next doctor s visit. Bring all medications you take, including over the counter medications, herbals and other supplements with you to your doctor s visit. Patients and families are reminded to discard old lists and to update any records with all medication providers or retail pharmacies. Additional Information VACCINATE! IT SAVES LIVES! Members of the community who have not yet received the COVID-19 vaccine and would like to receive it can visit one of [facility] vaccine clinics. There are many vaccine clinic locations within the [facility]. For locations and available times, please visit [email or web address]/. It is important to note that some COVID mobile vaccine clinics are held outdoors and may be canceled in rainy or stormy conditions. To learn more about pediatric vaccinations (ages 5-11), we invite you to visit the [facility] webpage. https://www.smartclips.org/pages/9217-Xpnlf-Xesyfyqvjyj-Husxhfgiih-Wcirv-Xmi stions.htmlTo learn more about the COVID-19 vaccine, we invite you to visit the CDC website for a list of frequently asked questions.https://www.cdc.gov/coronavirus/2019-ncov/vaccines/faq.html [facility] Patient Portal Access Instructions: Stay connected with your healthcare team and access your personal medical information anytime with the [facility] Patient Portal. Please follow the directions below to create your [facility] account: 1.Access the email account you provided upon registration to the hospital/physician office.2.Look for an invitation email from [facility].3.Open the email and access the invitation link: AcceptInvitation to [facility].4.Fill in the required garcia to create your account. To access your account, visit [email or web address]. Click the blue button labeled Access Patient Portal and then log in with the username and password that you created in the steps above. You will be able to view your test results, lab results, a summary of your visits, upcoming appointments and more. There is also a convenient messaging option where you can send secure messages to your p rovider. In addition, you will have the ability to download any documents or summaries to your computer and/or send the information securely to a physician. Remember that your healthcare information is confidential, so carefully consider who you will allowto register on the [facility] Patient Portal for access to your information. You can also access the [place] [facility] Patient Portal on the [place] Any[facility] demario. Simply click on Patient Portal and then log into your account. If you would like to receive a full copy of your medical records, please contact the [facility] Medical Records Department by calling [phone], Sunday through Sunday between 8 a.m. and 4:30 p.m. HOW TO SAFELY DISPOSE OF PRESCRIPTION MEDICATIONS Please use one of the following methods to safely dispose of your unused medications. 1.Use a drug disposal kit: the drug disposal pouch allows you to safely discard your old and unuseddrugs. Ask your nurse to give you one when you are discharged.2.Visit a local take-back location: Many local pharmacies and police departments have programs that collect old and unwanted prescriptiondrugs. Call your local pharmacy or go to http://Hactus/7L2Sc9i to find one close to you.3.Make use of household items: Use cat litter or old coffee grounds to dispose medications if other options arenot available. Mix your drugs with these household products, seal them in an airtight container andthrow it into the garbage. Call [facility]: [phone] to be sure your drugs can be [...] a CHART COPY. Signatures Patient Education Materials Medication Leaflets My discharge plan and instructions have been reviewed and explained to me and I,APRIL ROSA understand my current condition and have read and understand these discharge instructions. I have received a written copy of the plan/instructions. If I have questions, I am aware that I should contact my doctor. 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 Olmstead Neurosurgery CC: Right-sided L4-L5 disc bulge with foraminal stenosis s/p right L4-5 laminectomy with partial medial facetectomy and foraminotomy POD #1 This is a 49-year-old female who had initially been evaluated in the emergency department 04/21/2024 with complaints of worsening low back pain radiating down right lower extremity with numbness and tingling, as well as reported right lower extremity weakness after sustaining a fall down stairs approximately [address] scan of the lumbar spine was obtained at that time, and showed central bulging at L4-L5 without disc protrusion and mild bilateral L4-L5 neuroforaminal narrowing. It was documented she had no evidence of cauda equina, though did have weakness in plantar and dorsiflexion onthe right with decreased sensation. Was visualized by ED staff ambulating without difficulty. She was discharged home with on Medrol dose belinda with instructions to follow-up in the neurosurgery office. Was seen by Dr. Olmstead's nurse practitioner in the neurosurgery clinic on 04/23/2024; note reviewed. Was documented patient reported numbness in groin area, which worsened over the last couple days and having urinary incontinence and constipation, ongoing for approximately 7-10 days. Due to progressionof symptoms with weakness, development of partial right foot drop, urinary incontinence and constipation Dr. Olmstead advised patient go to the ER for stat MRI of the lumbar spine. Patient was agreeable to this, and presented to [place] emergency department from the neurosurgery office. In the ED emergency department, she partial right foot drop, and decreased sensation of the right lower extremity from the knee down to the foot. She underwent lumbar spine MRI which demonstrated right-sided L4-5 disc bulge causing foraminal stenosis and impingement of the right L5 nerve. Dr. Olmstead met with patient in the emergency department and discussed MRI findings. He advised surgical intervention for treatment. Patient was agreeable to proceed. She went to the operating room 04/24/2024 Dr. Olmstead and underwent L4-5 laminectomy with partial medialfacetectomy and foraminotomy. There was no noted complications at the time of surgery. A JUAN drain was placed intraoperatively. Patient was recovered in the PACU. She was then transferred to stepdown unit for further postoperative evaluation/care. She is now POD #1. She reports improvement of strength and sensation in the right lower extremity. On exam, has improved movement at the right ankle, and plantar dorsiflexion are stronger, although still remains with some weakness. Light touch sensation is improved patient has greater sensation to noxious stimulation in the right lower leg. She is pleased with her results. Patient states she has been out of bed and is able to ambulate, although still has some trouble with her right foot. PT/OT evaluations are ordered. JUAN drain output overnight = 30 mL. Output recorded from the shift prior was also 30 mL. Drainage isserosanguineous in the collection bulb. Objective Vitals and Measurements T: 36.7 C (Oral) TMIN: 36 C (Temporal Artery) TMAX: 36.8 C (Oral) HR: 93 RR: 18 BP: 112/79 SpO2: 95% Intake and Output 7AM Yesterday to 7AM Today Intake and Output (Last 24 hours) Intake Oral Intake 900.00 Administration Information 1000.00 Output Surgical Drain, Tube Output: 60.00 Urine Voided 800.00 Intra-Op EBL 20.00 Stool Count 0.00 Urine Count 7.00 Total Summary Total Intake 1900.00 Total Output 880.00 Fluid Balance 1020.00 Physical Exam Patient is awake, alert and oriented x4. Follows commands without difficulty. Moves all 4 extremities; has some weakness with plantar and dorsiflexion on the right, as states above, although again isstronger than prior to surgery. Regular HR. Normal heart sounds. Respirations are unlabored and are even. Lungs are clear. Abdomen is soft. +bowel sounds. Denies passing flatus and has not had a BM yet post-operatively. Abdomen is nondistended and nontender. Tolerating PO intake. Voiding without difficulty. Lumbar incision is covered with silver alginate dressing, which is dry and intact. No edema at site. No drainage, bleeding, or erythema. JUAN drain intact. Bulb compressed. Gauze dressing intact at site and is clean/dry. Weight Dosing Weight: 112 kg (04/24/24) Dosing Weight: 112 kg (04/23/24) Medications Medications (29) Active Scheduled: (16) albuterol 0.083% Soln UD (2.5mg/3 mL) 2.5 mg 3 mL, Inhalation, QIDRT atorvastatin 10 mg tablet 10 mg 1 tab(s), Oral, qDay budesonide 0.25 mg/2 mL Susp UD 0.25 mg 2 mL, Inhalation, BIDRT budesonide 3 mg ER capsule 3 mg 1 cap(s), Oral, qAM bupropion 150 mg/24 hours ER tablet 150 mg 1 tab(s), Oral, qDay ceFAZolin syringe 1 gram(s) 10 mL, IV Push (INT), q6h cloNIDine 0.3 mg tablet 0.3 mg 1 tab(s), Oral, BID docusate-senna (Senokot S) 50 mg-8.6 mg Tablet 1 tab(s), Oral, BID metformin 750 mg ER tablet 1,500 mg 2 tab(s), Oral, qDay montelukast 10 mg Tablet 10 mg 1 tab(s), Oral, qDay omeprazole [address] capsule 40 mg 1 cap(s), Oral, qDay propranolol 40 mg tablet 40 mg 1 tab(s), Oral, qDay QUEtiapine 50 mg tablet 50 mg 1 tab(s), Oral, qHS scopolamine 1.5 mg (1 mg / 72 hours patch) 1 patch(es), Transdermal, q72h spironolactone 50 mg tablet 50 mg 1 tab(s), Oral, qDayM Transderm-Scop patch REMOVAL 1 EA, Miscellaneous, q72h Continuous: (2) NS (0.9% nacl) 1,000 mL 1,000 mL, Intravenous, 50 mL/hr NS (0.9% nacl) 1,000 mL 1,000 mL, Intravenous, 75 mL/hr PRN: (11) acetaminophen 325 mg Tablet 650 mg 2 tab(s), Oral, q4h acetaminophen-OXYcodone 325 mg-5 mg Tablet 1 tab(s), Oral, q4h acetaminophen-OXYcodone 325 mg-5 mg Tablet 2 tab(s), Oral, q4h Al hydrox/Mg hydrox/simethicone 200-200-20 mg/5 mL Susp UD 30 mL, Oral, q2h albuterol 0.083% Soln UD (2.5mg/3 mL) 2.5 mg 3 mL, Inhalation, q4hRT dextrose 50% Solution Disp syringe 50 mL 12.5 gram(s) 25 mL, IV Push, AsDirected docusate sodium 100 mg Capsule 100 mg 1 cap(s), Oral, BID hydralazine 20 mg/mL (1mL) vial 10 mg 0.5 mL, IV Push, q15min magnesium hydroxide 8% Suspension 30 mL UD 30 mL, Oral, qHS ondansetron 2 mg/ 1 mL 2 mL INJ 4 mg 2 mL, IV Push, q4h tiZANidine 4 mg tablet 4 mg 1 tab(s), Oral, TID Lab Results 04/25 05:55 WBC: 13.5 H Hgb: 13.1 Hct: 38.4 Platelet: 194 Neutrophil %: 84.5 H Glucose Level: 163 H Sodium Level: 137 Potassium Level: 4.1 BUN: 16.0 Creatinine Lvl (s): 1.14 04/24 06:39 WBC: 8.3 Hgb: 13.8 Hct: 39.1 Platelet: 175 Neutrophil %: 51.7 Glucose Level: 102 Sodium Level: 139 Potassium Level: 3.7 BUN: 18.0 Creatinine Lvl (s): 1.09 EKG EKG - Completed -- 04/23/24 19:03:00 EDT, now, Complete by Nursing Assessment/Plan Right-sided L4-L5 disc bulge with foraminal stenosis s/p right L4-5 laminectomy with partial medialfacetectomy and foraminotomy POD #1 Overall, patient is doing quite well postoperatively. She reports improvement of preoperative symptoms with surgery, and most specifically provides that strength and sensation in the right lower extremity are improved. Denies any new postoperative paresthesias or weakness. For management of her surgical/incisional related pain, patient is receiving Percocet as needed, aswell as Valium as needed for muscle spasms. Patient indicates she does not feel that Valium is working for her, and requests to have muscle relaxant switched. Will adjust medications, and discontinueValium, and initiate tizanidine 4 mg 3 times daily as needed. Will also discontinue IV Dilaudid, aspatient will need to transition to p.o. medications as this is what she will be prescribed upon discharge. Bowel regimen ordered while patient is on narcotic medications. Maintain JUAN drain will continue to monitor output. Output to be less than 30 mL / 8-hour shift to be discontinued. Continue prophylactic antibiotic while drain remains intact. Keep bulb compressed and continue to monitor output. PT/OT ordered for evaluation and discharge planning. Encouraged ambulation and increase mobilization as tolerated. Anticipated Date of Discharge Hopefully within the next 24 hours; Awaiting PT/OT evaluation/recommendations and JUAN drain output to lessen < 30mL/8hr Digitally Signed by PARTHA NUNO on 04/25/2024 10:09 AM Digitally Signed by CHRIS OLMSTEAD MD on 04/25/2024 01:49 PM [id number] Res[facility] therapy Hospital Progress note Respiratory Therapy Evaluation Entered On: 04/24/2024 19:38 EDT Performed On: 04/24/2024 19:37 EDT by Hawa Garcia RRT Respiratory Therapy Evaluation RT Evaluation Steps : Chart review completed, Assessment completed: RR, HR, Auscultation, Cough, Patient Interview completed Respiratory Evaluation Triage Score : (0-5) Freq: Q4RT prn RT Assessment [Frequency/Schedule] : Therapeutic interchange, discontinue future evaluations Hawa Garcia RRT - 04/24/2024 19:38 EDT Pulmonary Status : Chronic pulmonary disease Surgical Status : General surgery Chest X-Ray : Clear/none available/older than 3 days Respiratory Pattern (RT) : RR 10-20 BPM, Regular pattern Breath Sounds (RT) : Clear to auscultation Cough (RT) : Strong, non-productive Level of Activity : Ambulatory with assistance Mental Status : Alert, oriented and cooperative Respiratory Therapy Evaluation Score : 5 Hawa Garcia CASTING MACHINE ADJUSTER - 04/24/2024 19:37 EDT Digitally Signed by Hawa Garcia CASTING MACHINE ADJUSTER on 04/24/2024 07:38 PM [id number] Anesthesiology Consult note Patient: APRIL ROSA Age: 49 years Sex: Female : 1975 Associated Diagnoses: None Author: BRONSON DENNY MD Postoperative Information Post Operative Info: Post op day: Post Anesthesia Care Unit. Patient location: PACU. Assessment Postanesthesia assessment Vitals: Vital signs from flowsheet : Vital Signs 04/24/2024 16:15 EDT Temperature Temporal Artery 36 DegC Heart Rate Monitored 84 bpm Respiratory Rate 18 br/min Systolic Blood Pressure Non-Invasive 149 mmHg HI Diastolic Blood Pressure Non-Invasive 93 mmHg HI Mean Arterial Pressure (NBP) 110 mmHg 04/24/2024 16:00 EDT Heart Rate Monitored 82 bpm Respiratory Rate 18 br/min Systolic Blood Pressure Non-Invasive 161 mmHg HI Diastolic Blood Pressure Non-Invasive 85 mmHg Mean Arterial Pressure (NBP) 104 mmHg 04/24/2024 15:45 EDT Heart Rate Monitored 88 bpm Respiratory Rate 18 br/min Systolic Blood Pressure Non-Invasive 163 mmHg HI Diastolic Blood Pressure Non-Invasive 88 mmHg Mean Arterial Pressure (NBP) 110 mmHg 04/24/2024 15:20 EDT Heart Rate Monitored 86 bpm Respiratory Rate 16 br/min Systolic Blood Pressure Non-Invasive 152 mmHg HI Diastolic Blood Pressure Non-Invasive 76 mmHg Mean Arterial Pressure (NBP) 98 mmHg 04/24/2024 15:05 EDT Temperature Temporal Artery 36.7 DegC Heart Rate Monitored 84 bpm Respiratory Rate 14 br/min Respiratory Rate - Anes 0 br/min br/min Systolic Blood Pressure Non-Invasive 150 mmHg HI Diastolic Blood Pressure Non-Invasive 79 mmHg Mean Arterial Pressure (NBP) 99 mmHg 04/24/2024 15:00 EDT Respiratory Rate - Anes 6 br/min br/min 04/24/2024 14:55 EDT Temperature (Route Not Specified) 36.47 DegC DegC Heart Rate Monitored 66 bpm bpm Respiratory Rate - Anes 11 br/min br/min Systolic Blood Pressure Non-Invasive 129 mmHg mmHg Diastolic Blood Pressure Non-Invasive 76 mmHg mmHg 04/24/2024 14:52 EDT Systolic Blood Pressure Non-Invasive 127 mmHg mmHg Diastolic Blood Pressure Non-Invasive 78 mmHg mmHg 04/24/2024 14:50 EDT Temperature (Route Not Specified) 36.4 DegC DegC Heart Rate Monitored 65 bpm bpm Respiratory Rate - Anes 0 br/min br/min 04/24/2024 14:49 EDT Systolic Blood Pressure Non-Invasive 126 mmHg mmHg Diastolic Blood Pressure Non-Invasive 74 mmHg mmHg 04/24/2024 14:46 EDT Systolic Blood Pressure Non-Invasive 107 mmHg mmHg Diastolic Blood Pressure Non-Invasive 76 mmHg mmHg 04/24/2024 14:45 EDT Temperature (Route Not Specified) 36.35 DegC DegC Heart Rate Monitored 72 bpm bpm Respiratory Rate - Anes 12 br/min br/min 04/24/2024 14:43 EDT Systolic Blood Pressure Non-Invasive 113 mmHg mmHg Diastolic Blood Pressure Non-Invasive 82 mmHg mmHg 04/24/2024 14:40 EDT Temperature (Route Not Specified) 36.33 DegC DegC Heart Rate Monitored 74 bpm bpm Respiratory Rate - Anes 12 br/min br/min Systolic Blood Pressure Non-Invasive 112 mmHg mmHg Diastolic Blood Pressure Non-Invasive 79 mmHg mmHg 04/24/2024 14:37 EDT Systolic Blood Pressure Non-Invasive 111 mmHg mmHg Diastolic Blood Pressure Non-Invasive 78 mmHg mmHg 04/24/2024 14:35 EDT Temperature (Route Not Specified) 36.27 DegC DegC Heart Rate Monitored 72 bpm bpm Respiratory Rate - Anes 13 br/min br/min 04/24/2024 14:34 EDT Systolic Blood Pressure Non-Invasive 112 mmHg mmHg Diastolic Blood Pressure Non-Invasive 80 mmHg mmHg 04/24/2024 14:31 EDT Systolic Blood Pressure Non-Invasive 113 mmHg mmHg Diastolic Blood Pressure Non-Invasive 82 mmHg mmHg 04/24/2024 14:30 EDT Temperature (Route Not Specified) 36.22 DegC DegC Heart Rate Monitored 73 bpm bpm Respiratory Rate - Anes 13 br/min br/min 04/24/2024 14:28 EDT Systolic Blood Pressure Non-Invasive 109 mmHg mmHg Diastolic Blood Pressure Non-Invasive 76 mmHg mmHg 04/24/2024 14:25 EDT Temperature (Route Not Specified) 36.18 DegC DegC Heart Rate Monitored 75 bpm bpm Respiratory Rate - Anes 14 br/min br/min Systolic Blood Pressure Non-Invasive 106 mmHg mmHg Diastolic Blood Pressure Non-Invasive 74 mmHg mmHg 04/24/2024 14:22 EDT Systolic Blood Pressure Non-Invasive 104 mmHg mmHg Diastolic Blood Pressure Non-Invasive 78 mmHg mmHg 04/24/2024 14:20 EDT Temperature (Route Not Specified) 36.18 DegC DegC Heart Rate Monitored 72 bpm bpm Respiratory Rate - Anes 14 br/min br/min 04/24/2024 14:19 EDT Systolic Blood Pressure Non-Invasive 112 mmHg mmHg Diastolic Blood Pressure Non-Invasive 75 mmHg mmHg 04/24/2024 14:16 EDT Systolic Blood Pressure Non-Invasive 132 mmHg mmHg Diastolic Blood Pressure Non-Invasive 87 mmHg mmHg 04/24/2024 14:15 EDT Temperature (Route Not Specified) 36.24 DegC DegC Heart Rate Monitored 79 bpm bpm Respiratory Rate - Anes 14 br/min br/min 04/24/2024 14:13 EDT Systolic Blood Pressure Non-Invasive 126 mmHg mmHg Diastolic Blood Pressure Non-Invasive 93 mmHg mmHg 04/24/2024 14:10 EDT Temperature (Route Not Specified) 36.26 DegC DegC Heart Rate Monitored 72 bpm bpm Respiratory Rate - Anes 14 br/min br/min Systolic Blood Pressure Non-Invasive 120 mmHg mmHg Diastolic Blood Pressure Non-Invasive 88 mmHg mmHg 04/24/2024 14:07 EDT Systolic Blood Pressure Non-Invasive 124 mmHg mmHg Diastolic Blood Pressure Non-Invasive 89 mmHg mmHg 04/24/2024 14:05 EDT Temperature (Route Not Specified) 36.26 DegC DegC Heart Rate Monitored 77 bpm bpm Respiratory Rate - Anes 14 br/min br/min 04/24/2024 14:04 EDT Systolic Blood Pressure Non-Invasive 113 mmHg mmHg Diastolic Blood Pressure Non-Invasive 81 mmHg mmHg 04/24/2024 14:01 EDT Systolic Blood Pressure Non-Invasive 118 mmHg mmHg Diastolic Blood Pressure Non-Invasive 92 mmHg mmHg 04/24/2024 14:00 EDT Temperature (Route Not Specified) 36.34 DegC DegC Heart Rate Monitored 80 bpm bpm Respiratory Rate - Anes 14 br/min br/min 04/24/2024 13:58 EDT Systolic Blood Pressure Non-Invasive 117 mmHg mmHg Diastolic Blood Pressure Non-Invasive 87 mmHg mmHg 04/24/2024 13:55 EDT Temperature (Route Not Specified) 36.42 DegC DegC Heart Rate Monitored 88 bpm bpm Respiratory Rate - Anes 14 br/min br/min Systolic Blood Pressure Non-Invasive 122 mmHg mmHg Diastolic Blood Pressure Non-Invasive 88 mmHg mmHg 04/24/2024 13:52 EDT Systolic Blood Pressure Non-Invasive 116 mmHg mmHg Diastolic Blood Pressure Non-Invasive 84 mmHg mmHg 04/24/2024 13:50 EDT Temperature (Route Not Specified) 36.54 DegC DegC Heart Rate Monitored 92 bpm bpm Respiratory Rate - Anes 14 br/min br/min 04/24/2024 13:49 EDT Systolic Blood Pressure Non-Invasive 124 mmHg mmHg Diastolic Blood Pressure Non-Invasive 85 mmHg mmHg 04/24/2024 13:46 EDT Systolic Blood Pressure Non-Invasive 129 mmHg mmHg Diastolic Blood Pressure Non-Invasive 84 mmHg mmHg 04/24/2024 13:45 EDT Temperature (Route Not Specified) 36.58 DegC DegC Heart Rate Monitored 113 bpm bpm Respiratory Rate - Anes 10 br/min br/min 04/24/2024 13:43 EDT Systolic Blood Pressure Non-Invasive 159 mmHg mmHg Diastolic Blood Pressure Non-Invasive 108 mmHg mmHg 04/24/2024 13:40 EDT Respiratory Rate - Anes 5 br/min br/min 04/24/2024 13:38 EDT Systolic Blood Pressure Non-Invasive 107 mmHg mmHg Diastolic Blood Pressure Non-Invasive 82 mmHg mmHg 04/24/2024 13:35 EDT Heart Rate Monitored 80 bpm bpm Respiratory Rate - Anes 0 br/min br/min Systolic Blood Pressure Non-Invasive 155 mmHg mmHg Diastolic Blood Pressure Non-Invasive 83 mmHg mmHg 04/24/2024 13:32 EDT Systolic Blood Pressure Non-Invasive 152 mmHg mmHg Diastolic Blood Pressure Non-Invasive 94 mmHg mmHg 04/24/2024 10:29 EDT Temperature Oral 36.8 DegC Peripheral Pulse Rate 74 bpm Respiratory Rate 16 br/min Systolic Blood Pressure Non-Invasive 144 mmHg HI Diastolic Blood Pressure Non-Invasive 90 mmHg W[place] 04/24/2024 7:12 EDT Temperature Oral 36.3 DegC Peripheral Pulse Rate 84 bpm Respiratory Rate 16 br/min Systolic Blood Pressure Non-Invasive 138 mmHg Diastolic Blood Pressure Non-Invasive 82 mmHg Reason For Taking VItal Signs Routine 04/24/2024 2:35 EDT Temperature Oral 36.4 DegC Heart Rate Monitored 77 bpm Respiratory Rate 16 br/min Systolic Blood Pressure Non-Invasive 125 mmHg Diastolic Blood Pressure Non-Invasive 77 mmHg Reason For Taking VItal Signs Routine 04/24/2024 0:46 EDT Temperature Oral 36.2 DegC Peripheral Pulse Rate 89 bpm Respiratory Rate 18 br/min Systolic Blood Pressure Non-Invasive 122 mmHg Diastolic Blood Pressure Non-Invasive 85 mmHg 04/24/2024 0:14 EDT Heart Rate Monitored 74 bpm Respiratory Rate 18 br/min Systolic Blood Pressure Non-Invasive 145 mmHg HI Diastolic Blood Pressure Non-Invasive 92 mmHg W[place] 04/23/2024 20:08 EDT Heart Rate Monitored 79 bpm Respiratory Rate 16 br/min Systolic Blood Pressure Non-Invasive 142 mmHg HI Diastolic Blood Pressure Non-Invasive 83 mmHg 04/23/2024 17:32 EDT Heart Rate Monitored 88 bpm Respiratory Rate 18 br/min Systolic Blood Pressure Non-Invasive 140 mmHg Diastolic Blood Pressure Non-Invasive 91 mmHg W[place] 04/23/2024 16:57 EDT Systolic Blood Pressure Non-Invasive 157 mmHg HI Diastolic Blood Pressure Non-Invasive 92 mmHg W[place] 04/23/2024 16:43 EDT Peripheral Pulse Rate 73 bpm Respiratory Rate 17 br/min Systolic Blood Pressure Non-Invasive 145 mmHg HI Diastolic Blood Pressure Non-Invasive 87 mmHg 04/23/2024 14:45 EDT Heart Rate Monitored 84 bpm Respiratory Rate 18 br/min Systolic Blood Pressure Non-Invasive 120 mmHg Diastolic Blood Pressure Non-Invasive 73 mmHg 04/23/2024 12:04 EDT Heart Rate Monitored 81 bpm Respiratory Rate 18 br/min Systolic Blood Pressure Non-Invasive 147 mmHg HI Diastolic Blood Pressure Non-Invasive 88 mmHg 04/23/2024 10:25 EDT Heart Rate Monitored 85 bpm Respiratory Rate 18 br/min Systolic Blood Pressure Non-Invasive 133 mmHg Diastolic Blood Pressure Non-Invasive 78 mmHg 04/23/2024 8:02 EDT Temperature Temporal Artery 36 DegC Peripheral Pulse Rate 88 bpm Respiratory Rate 18 br/min Systolic Blood Pressure Non-Invasive 125 mmHg Diastolic Blood Pressure Non-Invasive 89 mmHg 04/23/2024 7:17 EDT Peripheral Pulse Rate 76 bpm Systolic Blood Pressure Non-Invasive 140 mmHg Diastolic Blood Pressure Non-Invasive 70 mmHg Blood Pressure Method Manual Blood Pressure Location Left arm Blood Pressure Cuff Size Medium . Mental status: at preoperative baseline. Respiratory function: respirations are non-labored, Stable. Respiratory support: none. CV function: Stable. Cardiovascular support: none. Pain: Satisfactory. Nausea status: Satisfactory. Postoperative hydration status: within normal limits. Notes: Patient is sufficiently recovered from anesthesia to participate in the evaluation. No follow-up care needed. No complications post-anesthesia.. Digitally Signed by BRONSON DENNY MD on 04/24/2024 06:03 PM [id number] Note ORIGINAL EXAMINATION: SPOT FLUOROSCOPIC IMAGES 04/24/2024 3:05 pm TECHNIQUE: Fluoroscopy was provided by the radiology department for procedure. Radiologist was not present during examination. FLUOROSCOPY DOSE AND TYPE: Radiation Exposure Index: 9.74 mGy air kerma, fluoroscopy time 1 is 8.5 seconds. COMPARISON: None HISTORY: ORDERING SYSTEM PROVIDED HISTORY: Reason for Exam: L4-L5 LAMI Intraprocedural imaging. FINDINGS: 5 intraoperative images show instrumentation at approximately L4-5. Degenerative changes seen of the visualized spine. Detail is suboptimal. IMPRESSION: Limited intraoperative views. Refer to surgical report Interpreted by: Edgard Choi MD Preliminary Report By: Edgard Choi MD Electronically signed By Edgard Choi MD Dictated Date: 04/24/2024 4:31:07 PM Prelim Date: 04/24/2024 4:32:01 PM Sign Date: 04/24/2024 4:32:01 PM Ordering Provider: [facility]06-06-2024 Anesthesiology Consult note Patient: APRIL ROSA Age: 49 years Sex: Female : 1975 Associated Diagnoses: None Author: TRAN ALBERTO MD Preoperative Information Time of last food or liquid consumption: 04/23/2024 18:00:00 Anesthesia history Patient's history: negative. Family's history: negative. Health Status Allergies: Allergic Reactions (All) Mild AmLODIPine- Lip swelling. Severity Not Documented Actos- Blurred vision. Diflucan- Lip swelling. Lisinopril- Angioedema. Reglan- No reactions were documented. Nonallergic Reactions (All) Severe Imitrex- Hypotension. Severity Not Documented Compazine- Anxiety. Maxalt- Hypotension. Norflex- Anxiety. Canceled/Inactive Reactions (All) Severity Not Documented Magnesium sulfate- Uncertain., Allergies (9) ActiveSeverityReaction ImitrexSevereHypotension amLODIPineMildlip swelling ReglanNone Documented MaxaltHypotension CompazineAnxiety NorflexAnxiety lisinoprilangioedema Actosblurred vision DiflucanLip swelling Current medications: (Selected) Inpatient Medications Ordered Apresoline: 10 mg, 0.5 mL, IV Push, q15min, PRN: Systolic BP: See order comments Colace: 100 mg, 1 cap(s), Oral, BID, PRN: Constipation Dextrose 50% IV Push: 12.5 gram(s), 25 mL, IV Push, AsDirected, PRN: Hypoglycemia Dilaudid: 0.5 mg, 0.5 mL, IV Push, q2h, PRN: Pain, scale 7-10 Kefzol 2 gm IV Syringe: 2 gram(s), 20 mL, 240 mL/hr, IV Push (INT), PREOP pharm Maalox: 30 mL, Oral, q2h, PRN: Indigestion Milk of Magnesia: 30 mL, Oral, qHS, PRN: Constipation NS 1,000 mL: 50 mL/hr, Intravenous Percocet 325/5: 1 tab(s), Oral, q4h, PRN: Pain, scale 4-6 Percocet 325/5: 2 tab(s), Oral, q4h, PRN: Pain, scale 7-10 Tylenol: 650 mg, 2 tab(s), Oral, q4h, PRN: Pain, scale 1-3 Valium: 5 mg, 1 tab(s), Oral, q6hr, PRN: Muscle spasm Zofran: 4 mg, 2 mL, IV Push, q4h, PRN: Nausea/Vomiting Prescriptions Prescribed Albuterol (Eqv-ProAir HFA) 90 mcg/inh inhalation aerosol: 2 puff(s), Inhalation, q4h, PRN: as needed for wheezing, 8.5 gram(s), 3 Refill(s) DME MISCellaneous: See Instructions, Freestyle [place] 3 Sensor. 1 sensor every 14 days. 2 sensors per 30 days. 3 refills. E11.9, 2 EA, 3 Refill(s) DME MISCellaneous: See Instructions, freestyle [place] 3 sensors 1 sensor every 14 days #2kits for 28days and 3 refills E11.65., 2 EA, 3 Refill(s) Medrol Dosepak 4 mg oral tablet: Per Dosepak Instructions, Oral, Daily, for 6 day(s), as directed on package labeling, 1 EA, 0 Refill(s) MetFORMIN (Eqv-Glucophage XR) 500 mg oral tablet, EXTENDED RELEASE: 1,500 mg, 3 tab(s), Oral, qDay,270 tab(s), 1 Refill(s) Mounjaro 7.5 mg/0.5 mL subcutaneous solution: 7.5 mg, Subcutaneous, qWeek, rotate injection sites, 4 EA, 3 Refill(s) QUEtiapine 50 mg oral tablet: See Instructions, TAKE 1 TABLET BY MOUTH EVERYDAY AT BEDTIME, 90 tab(s), 1 Refill(s) Singulair 10 mg oral tablet: 10 mg, 1 tab(s), Oral, qDay, 90 tab(s), 3 Refill(s) Symbicort 80 mcg-4.5 mcg/inh Inhaler: 2 puff(s), Inhalation, BID, 3 EA, 3 Refill(s) Xopenex 0.63 mg/3 mL inhalation solution: 0.63 mg, 3 mL, Nebulized, TID, for 30 day(s), PRN: as needed for wheezing, 270 mL, 0 Refill(s) aspirin 81 mg oral tablet, chewable: 81 mg, 1 tab(s), Oral, qDayM, 30 tab(s), 0 Refill(s) atorvastatin 10 mg oral tablet: 10 mg, 1 tab(s), Oral, qDay, 30 tab(s), 11 Refill(s) buPROPion 150 mg/24 hours (XL) oral tablet, extended release: See Instructions, TAKE 1 TABLET BY MOUTH EVERY DAY, 90 tab(s), 3 Refill(s) cloNIDine 0.3 mg oral tablet: 0.3 mg, 1 tab(s), Oral, BID, 60 tab(s), 5 Refill(s) propranolol 40 mg oral tablet: 40 mg, 1 tab(s), Oral, qDay, 90 tab(s), 3 Refill(s) rosuvastatin 20 mg oral tablet: 20 mg, 1 tab(s), Oral, Daily, 30 tab(s), 3 Refill(s) Documented Medications Documented Calcium and Magnesium oral tablet: 1 tab(s), Oral, qDay, 750mg, 0 Refill(s) Probiotic: 1 cap(s), Oral, qDay, 0 Refill(s) Vitamin D3 250 mcg (10,000 intl units) oral capsule: 250 mcg, 1 cap(s), Oral, Every other day, Nextdose 04/24/24, 0 Refill(s) biotin 10 mg oral tablet: 10 mg, 1 tab(s), Oral, qDay budesonide 3 mg oral delayed release capsule: 3 mg, 1 cap(s), Oral, qAM cetirizine 10 mg oral capsule: 10 mg, 1 cap(s), Oral, qDay, PRN: as needed for allergy symptoms, 0 Refill(s) omeprazole 40 mg oral delayed release capsule: 40 mg, 1 cap(s), Oral, qDay, 90 cap(s), 0 Refill(s) ondansetron 4 mg oral tablet, disintegratin mg, 1 tab(s), Oral, TID, PRN: Nausea/Vomiting, 0 Refill(s) spironolactone 50 mg oral tablet: 50 mg, 1 tab(s), Oral, qDay, 0 Refill(s) vitamin E 400 intl units oral capsule: 400 International_Unit, 1 cap(s), Oral, BID, 0 Refill(s), Medications (13) Active Scheduled: (1) ceFAZolin syringe 2 gram(s) 20 mL, IV Push (INT), PREOP pharm Continuous: (1) NS (0.9% nacl) 1,000 mL 1,000 mL, Intravenous, 50 mL/hr PRN: (11) acetaminophen 325 mg Tablet 650 mg 2 tab(s), Oral, q4h acetaminophen-OXYcodone 325 mg-5 mg Tablet 1 tab(s), Oral, q4h acetaminophen-OXYcodone 325 mg-5 mg Tablet 2 tab(s), Oral, q4h Al hydrox/Mg hydrox/simethicone 200-200-20 mg/5 mL Susp UD 30 mL, Oral, q2h dextrose 50% Solution Disp syringe 50 mL 12.5 gram(s) 25 mL, IV Push, AsDirected diazepam 5 mg tablet 5 mg 1 tab(s), Oral, q6hr docusate sodium 100 mg Capsule 100 mg 1 cap(s), Oral, BID hydralazine 20 mg/mL (1mL) vial 10 mg 0.5 mL, IV Push, q15min HYDROmorphone 0.5 mg/0.5 mL PF syringe 0.5 mg 0.5 mL, IV Push, q2h magnesium hydroxide 8% Suspension 30 mL UD 30 mL, Oral, qHS ondansetron 2 mg/ 1 mL 2 mL INJ 4 mg 2 mL, IV Push, q4h Problem list: Medical PCOS (polycystic ovarian syndrome) / SNOMED CT 976067259 / Confirmed Hypercholesterolemia / SNOMED CT 28572746 / Confirmed Asthma / SNOMED CT 604169439 / Confirmed Sleep apnea / SNOMED CT 283758312 / Confirmed Glasses / SNOMED CT 7259545526 / Confirmed Anxiety / SNOMED CT 33722447 / Confirmed Diabetes mellitus, type II ([place]) / SNOMED CT 386505501 / Confirmed Cough / SNOMED CT 85433448 / Confirmed Vitamin D deficiency / SNOMED CT 48651410 / Confirmed Metabolic syndrome / SNOMED CT 851620941 / Confirmed Depression, major, recurrent, moderate / SNOMED CT 391131287 / Confirmed Personality disorder / SNOMED CT 34272428 / Confirmed Environmental allergies / SNOMED CT 5377799973 / Confirmed Morbid obesity / SNOMED CT 581575512 / Confirmed Spasm / SNOMED CT 35299692 / Confirmed High triglycerides / SNOMED CT 603484302 / Confirmed Gastrointestinal distress / SNOMED CT 6561215217 / Confirmed Fibromyalgia / SNOMED CT 475587564 / Confirmed Hirsutism / SNOMED CT 4173027016 / Confirmed Nausea & vomiting / SNOMED CT 21622546 / Confirmed Claustrophobia / SNOMED CT 72270159 / Confirmed Essential hypertension / SNOMED CT 94137237 / Confirmed CKD (chronic kidney disease), stage III / SNOMED CT 3153170809 / Confirmed Migraine / SNOMED CT 92070517 / Confirmed Left-sided weakness / SNOMED CT 092292982 / Confirmed Orthostatic hypotension / SNOMED CT 73047068 / Confirmed Fatigue / SNOMED CT 041847330 / Confirmed 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 Celiac disease / SNOMED CT 1659123149 / Confirmed, Active Problems (31) Angioedema Anxiety Asthma Celiac disease CKD (chronic kidney disease), stage III Claustrophobia Cough Depression, major, recurrent, moderate [facility] Environmental allergies Eosinophil adenoma Essential hypertension Fatigue Fibromyalgia Gastrointestinal distress Glasses High triglycerides Hirsutism Hypercholesterolemia Left-sided weakness Metabolic syndrome Migraine Morbid obesity Nausea & vomiting Orthostatic hypotension Palpitations PCOS (polycystic ovarian syndrome) Personality disorder Sleep apnea Spasm Vitamin D deficiency Histories Past Medical History: Active PCOS (polycystic ovarian syndrome) ([id number]) Hypercholesterolemia ([id number]) Comments: 02/16/2016 EDT 8:39 RAUDEL Cabrera no meds yet Asthma ([id number]) Sleep apnea ([id number]) Comments: 02/16/2016 EDT 8:39 RAUDEL Cabrera refuses cpap Glasses ([id number]) Anxiety ([id number]) Comments: 02/16/2016 EDT 8:41 RAUDEL Cabrera no treatment Resolved Diverticulitis ([id number]): Resolved. Migraine ([id number]): Resolved. Comments: 02/16/2016 EDT 8:40 RAUDEL Cabrera none since hyster Myocardial infarction ([id number]): Resolved. Comments: 03/03/2018 EDT 23:48 Leigh Coy RN September 2016 Fall ([id number]): Resolved. Suicidal behavior ([id number]): Resolved. Family History: Diabetes mellitus Daughter Asthma Sister Son Fibromyalgia Mother Sister Heart attack Father Comments: 10/30/2018 8:31 EST - KAYCEE ARAUJO DO Massive M.I. at age 48. at 49 of brain cancer. Cancer Father HTN - Hypertension Brother Meniere's disease 11-AUG-2014 16:50:41<$> Brother Procedure history: EGD (esophagogastroduodenoscopic) electrohydraulic lithotripsy of bezoar in stomach ([id number]) on01/25/2024 at 48 Years. Colonoscopy ([id number]) on 01/25/2024 at 48 Years. Bowel ([id number]) in 2016 at 41 Years. Comments: 10/05/2018 0:59 GOOD - RAUDEL Marcano diverticulitis Fall ([id number]) on 02/25/2016 at 40 Years. History of vaginal hysterectomy ([id number]) in the month of 05/2012 at 37 Years. Stress testing using pharmacologic-induced stress ([id number]). Social History: Social & Psychosocial Habits Alcohol 4Risk Assessment: Denies Alcohol Use 04/23/2024 Frequency: 1-2 times per year Substance Abuse 4Risk Assessment: Denies Substance Abuse Comment: denies - 09/22/2019 16:54 - Carli Boyd RN Tobacco 04/23/2024 Tobacco Use: Never (less than 100 in l Sexual 04/23/2024 Sexually active: Yes First active at age: 17 Years Self described orientation: Straight or heterosexual History of sexual abuse: No What is your current gender identity? (Check all that apply) Identifies as female Physical Examination Vital Signs 04/24/2024 10:29 EDT Temperature Oral 36.8 DegC Peripheral Pulse Rate 74 bpm Respiratory Rate 16 br/min Systolic Blood Pressure Non-Invasive 144 mmHg HI Diastolic Blood Pressure Non-Invasive 90 mmHg HI 04/24/2024 7:12 EDT Temperature Oral 36.3 DegC Peripheral Pulse Rate 84 bpm Respiratory Rate 16 br/min Systolic Blood Pressure Non-Invasive 138 mmHg Diastolic Blood Pressure Non-Invasive 82 mmHg Reason For Taking VItal Signs Routine 04/24/2024 2:35 EDT Temperature Oral 36.4 DegC Heart Rate Monitored 77 bpm Respiratory Rate 16 br/min Systolic Blood Pressure Non-Invasive 125 mmHg Diastolic Blood Pressure Non-Invasive 77 mmHg Reason For Taking VItal Signs Routine 04/24/2024 0:46 EDT Temperature Oral 36.2 DegC Peripheral Pulse Rate 89 bpm Respiratory Rate 18 br/min Systolic Blood Pressure Non-Invasive 122 mmHg Diastolic Blood Pressure Non-Invasive 85 mmHg 04/24/2024 0:14 EDT Heart Rate Monitored 74 bpm Respiratory Rate 18 br/min Systolic Blood Pressure Non-Invasive 145 mmHg HI Diastolic Blood Pressure Non-Invasive 92 mmHg HI 04/23/2024 20:08 EDT Heart Rate Monitored 79 bpm Respiratory Rate 16 br/min Systolic Blood Pressure Non-Invasive 142 mmHg HI Diastolic Blood Pressure Non-Invasive 83 mmHg 04/23/2024 17:32 EDT Heart Rate Monitored 88 bpm Respiratory Rate 18 br/min Systolic Blood Pressure Non-Invasive 140 mmHg Diastolic Blood Pressure Non-Invasive 91 mmHg HI 04/23/2024 16:57 EDT Systolic Blood Pressure Non-Invasive 157 mmHg HI Diastolic Blood Pressure Non-Invasive 92 mmHg W[place] 04/23/2024 16:43 EDT Peripheral Pulse Rate 73 bpm Respiratory Rate 17 br/min Systolic Blood Pressure Non-Invasive 145 mmHg HI Diastolic Blood Pressure Non-Invasive 87 mmHg 04/23/2024 14:45 EDT Heart Rate Monitored 84 bpm Respiratory Rate 18 br/min Systolic Blood Pressure Non-Invasive 120 mmHg Diastolic Blood Pressure Non-Invasive 73 mmHg 04/23/2024 12:04 EDT Heart Rate Monitored 81 bpm Respiratory Rate 18 br/min Systolic Blood Pressure Non-Invasive 147 mmHg HI Diastolic Blood Pressure Non-Invasive 88 mmHg 04/23/2024 10:25 EDT Heart Rate Monitored 85 bpm Respiratory Rate 18 br/min Systolic Blood Pressure Non-Invasive 133 mmHg Diastolic Blood Pressure Non-Invasive 78 mmHg 04/23/2024 8:02 EDT Temperature Temporal Artery 36 DegC Peripheral Pulse Rate 88 bpm Respiratory Rate 18 br/min Systolic Blood Pressure Non-Invasive 125 mmHg Diastolic Blood Pressure Non-Invasive 89 mmHg 04/23/2024 7:17 EDT Peripheral Pulse Rate 76 bpm Systolic Blood Pressure Non-Invasive 140 mmHg Diastolic Blood Pressure Non-Invasive 70 mmHg Blood Pressure Method Manual Blood Pressure Location Left arm Blood Pressure Cuff Size Medium Vital Signs (last 24 hrs) Last Charted Temp Oral36.8 DegC (APR 24 10:29) Heart Rate Sisipslww66 bpm (APR 24 02:35) SBPH 144 mmHg (APR 24 10:29) DBPH 90 mmHg (APR 24 10:29) BMI37.55 (APR 24 00:56) Measurements from flowsheet : Measurements 04/24/2024 0:56 EDT Height 172.7 cm Height in inches 68 inch(es) Admission Weight 112 kg Weight Lbs 246.4 lb [place] Body Weight 63.88 kg BSA Admission 2.24 Body Mass Index 37.55 kg/m2 04/23/2024 8:02 EDT Admission Weight 112 kg 04/23/2024 7:17 EDT Height 172 cm Height in inches 67.7 inch(es) Admission Weight 114 kg Weight Lbs 250.8 lb Weight Method Stated [place] Body Weight 63.25 kg BSA Admission 2.25 Body Mass Index 38.53 kg/m2 Pain assessment: Pain Assessment 04/24/2024 8:49 EDT Primary Pain Location Low back Primary Pain Intensity 7 Primary Pain Pharma Intervention Medication Pain Scale Type 0-10 Pain scale 04/24/2024 5:58 EDT Pain Scale Assessment PAINAD Primary Pain Location Low back Primary Pain Intensity 1 04/24/2024 5:11 EDT Pain Scale Assessment PAINAD Primary Pain Location Low back Primary Pain Intensity 1 04/24/2024 4:41 EDT Primary Pain Intensity 8 04/24/2024 3:05 EDT Pain Scale Assessment PAINAD Primary Pain Location Low back Primary Pain Intensity 1 04/24/2024 2:35 EDT Primary Pain Location Low back Primary Pain Intensity 8 Primary Pain Pharma Intervention Medication Primary Pain Nonverbal Response Nods Yes Pain Scale Type 0-10 Pain scale 04/24/2024 1:19 EDT Pain Scale Assessment 0-10 Pain scale Primary Pain Location Low back Primary Pain Intensity 7 04/24/2024 0:46 EDT Primary Pain Location Low back Primary Pain Intensity 7 Primary Pain Intensity 7 Primary Pain Pharma Intervention Medication Primary Pain Nonverbal Response Nods Yes Pain Scale Type 0-10 Pain scale 04/24/2024 0:19 EDT Primary Pain Intensity 8 04/23/2024 23:15 EDT Pain Scale Assessment 0-10 Pain scale Primary Pain Location Low back Primary Pain Intensity 7 04/23/2024 20:39 EDT Pain Scale Assessment 0-10 Pain scale Primary Pain Location Flank Primary Pain Intensity 9 04/23/2024 20:09 EDT Primary Pain Intensity 9 04/23/2024 17:30 EDT Primary Pain Intensity 9 04/23/2024 12:11 EDT Primary Pain Intensity 10 04/23/2024 9:06 EDT Primary Pain Location Low back Primary Pain Laterality Right Primary Pain Intensity 8 Primary Pain Onset Gradual Primary Pain Quality Aching, Throbbing Primary Pain Nonverbal Response Nods Yes Pain Scale Type 0-10 Pain scale . General: Alert and oriented. Airway: Normal temporomandibular joint mobility, Nares patent, Trachea midline. Mallampati classification: II (soft palate, fauces, uvula visible). Head: Normocephalic, Atraumatic. Dentition Evaluation: Intact, Own teeth, Missing teeth. Respiratory: Lungs are clear to auscultation. Cardiovascular: Normal rate, Regular rhythm. Neurologic: Alert, Oriented. Review / Management Results review: Labs (Last four charted values) WBC 8.3(APR 24) Hgb 13.8(APR 24) Hct 39.1(APR 24) Plt 175(APR 24)232(APR 23) Na 139(APR 24)137(APR 23) K 3.7(APR 24)3.8(APR 23) CO2 28(APR 24)29(APR 23) Cl 106(APR 24)104(APR 23) Cr 1.09(APR 24)1.15(APR 23) BUN 18.0(APR 24)14.0(APR 23) Glucose 102(APR 24)107(APR 05) Ca 9.3(APR 24)9.5(APR 23) PT 11.6(APR 23) INR 1.0(APR 23) PTT 32.3(APR 23) , Lab results 04/24/2024 12:31 EDT CHG Preoperative Wash/Wipe Site specific wipe Preop Nasal Swab Povidone-Iodine Activity Status ADL Awake, Up to bathroom Standard Safety Call device within reach, Visitor at bedside, Safety level maintained High Risk Safety Room check performed Demonstrates Correct Call Light Use Yes 04/24/2024 12:03 EDT Blood Glucose, Capillary 90 mg/dL Blood Glucose Testing Reason Routine 04/24/2024 10:32 EDT glucose 12.5 gram(s) gram(s) 04/24/2024 10:29 EDT Temperature Oral 36.8 DegC Peripheral Pulse Rate 74 bpm Respiratory Rate 16 br/min Systolic Blood Pressure Non-Invasive 144 mmHg HI Diastolic Blood Pressure Non-Invasive 90 mmHg HI Oxygen Therapy Room air Oxygen Saturation 97 % 04/24/2024 10:22 EDT Blood Glucose, Capillary 80 mg/dL 04/24/2024 9:57 EDT Discharge To, Anticipated Skilled facility Anticipated Discharge Date 04/25/2024 Transition Planning Note Transition Planning Initial Assessment 04/24/2024 9:25 EDT CHG Preoperative Wash/Wipe Day of procedure CHG Skin Prep Completed for Eligible Surgery Mechanical VTE Prophylaxis Education Not Done: Task Duplication (Not Done) Sequential Compression Device Not Done: Task Duplication (Not Done) Sequential Compression Device Form Not Done (Not Done) 04/24/2024 9:24 EDT Skin Care Product Applied CHG bath Able To Drink Order Detail Yes Able To Sign Consents Order Detail Yes Code Status Order Detail Full code IV Order Detail Yes Dialysis Schedule Order Detail N/A Has Diabetes Order Detail Yes Isolation Precautions Order Detail None Nurse Collect Order Detail 0 Oxygen Order Detail No Order Detail No Prior Valve Replacement Order Detail No Transport Mode Order Detail Patient bed [employer] Instructor Details Form [employer] Instructor Details Form 04/24/2024 9:23 EDT Farmer Screen Daily History of Fall in Last 3 Months Farmer Yes Presence of Secondary Diagnosis Farmer No Use of Ambulatory Aid Farmer Crutches, cane, walker IV/PRN Adapter Fall Risk Farmer No Gait Weak or Impaired Fall Risk Farmer Normal, bedrest, immobile Mental Status Fall Risk Farmer Oriented to own ability Farmer Fall Risk Score 40 BMAT Existing Patient Condition/Safety No order for Strict Bedrest BMAT Level 1: Sit and Shake Sit, side bed/reach midline/shake hands BMAT Level 2: Stretch and Point Seated position, straighten 1 knee; Flex ankle & point toes BMAT Level 3: Stand Stand up w/o assist/Use of assist device BMAT Level 4: Walk March in place; step forward & back each foot BMAT Mobility Level 4 Individuals Taught Patient Learning Readiness Willing to learn Barriers to Learning None evident Teaching Method Demonstration Mechanical VTE Prophylaxis Education Wear device at all times when in bed/chair, Always call for assistance to get out of bed Teaching Evaluation Needs reinforcement Sequential Compression Device bilateral knee high applied/on Education Topics Fall Prevention Don't use IV pole for support, Door open, Environmental management Sequential Compression Device Form Sequential Compression Device Form 04/24/2024 8:56 EDT Antecubital Right 04/24/2024 18 gauge Peripheral IV Activity: Assessed Peripheral IV Dressing Condition: Clean, Dry, Intact Peripheral IV Line Status/Patency: Continuous infusion Peripheral IV Site Condition: No complications Peripheral IV Equipment: IV Pump Up to Chair Sitting on edge of bed Activity Status ADL Awake Standard Safety Call device within reach, Visitor at bedside, Safety level maintained High Risk Safety Room check performed Demonstrates Correct Call Light Use Yes 04/24/2024 8:52 EDT Heart Rhythm Regular 04/24/2024 8:49 EDT Primary Pain Location Low back Primary Pain Intensity 7 Primary Pain Pharma Intervention Medication Pain Scale Type 0-10 Pain scale Nail Bed Color [place] Capillary Refill < 2 seconds Dorsalis Pedis Pulse, Left 2+ Normal Dorsalis Pedis Pulse, Right 2+ Normal Radial Pulse, Left 2+ Normal Radial Pulse, Right 2+ Normal Respirations Unlabored Respiratory Pattern Regular Breath Sounds Auscultated Anterior and posterior All Lobes Breath Sounds Clear GI Symptoms Constipation Abdomen Description Non-distended, Soft Abdomen Palpation Non-Tender Passing Flatus Yes Bowel Movement Last Date 04/18/2024 Bowel Sounds All Quadrants Present Urinary Elimination Incontinence Facial Movement Symmetric resting/crying All Extremity Description [place] Skin Temperature Warm Temperature All Extremities Warm Skin Description [place], Dry Skin Integrity Intact Skin Turgor Elastic Mucous Membrane Color [place] Mucous Membrane Description Moist Neurological Language Able to speak clearly Neurological Symptoms Numbness Gait Steady Extremity Movement Unequal Swallowing Difficulty None Characteristics of Communication Appropriate Characteristics of Speech Clear Facial Symmetry Symmetric Level of Consciousness Alert Aspiration Risk None JILLIAN Yes Left Pupil Description Regular Right Pupil Description Regular Pupil Size, Left 4 mm Pupil Size, Right 2 mm Neuromuscular Symptoms Numbness, Tingling Left Upper Extremity Strength Strong Right Upper Extremity Strength Strong Left Lower Extremity Strength Strong Right Lower Extremity Strength Moderate Tone All Extremities Normal Left Upper Extremity Sensation Intact Right Upper Extremity Sensation Intact Left Lower Extremity Sensation Intact Right Lower Extremity Sensation Numbness, Tingling CN V Facial Sensation Light touch equal bilaterally CN VII Facial Expression and Symmetry Facial movement symmetrical CN VIII Hearing Spoken word equally audible left/right CN IX, X Swallowing, Gag Reflex Swallowing present Affect/Behavior Appropriate, Calm, Cooperative Orientation Oriented x 4 acetaminophen-oxycodone 2 tab(s) tab(s) 04/24/2024 7:12 EDT Temperature Oral 36.3 DegC Peripheral Pulse Rate 84 bpm Respiratory Rate 16 br/min Systolic Blood Pressure Non-Invasive 138 mmHg Diastolic Blood Pressure Non-Invasive 82 mmHg Reason For Taking VItal Signs Routine Oxygen Therapy Room air Oxygen Saturation 93 % 04/24/2024 7:00 EDT Urine Count 2 EA 04/24/2024 6:59 EDT Reason for PRN medication Nausea and/or vomiting PRN Med for Nausea/Vomiting Effective Yes PRN Medication Effectiveness Evaluation PRN Medication Effectiveness Evaluation 04/24/2024 6:39 EDT WBC 8.3 10^3/mcL RBC 4.42 10^6/mcL Hgb 13.8 G/dL Hct 39.1 % MCV 88.4 fL MCH 31.3 pg MCHC 35.4 G/dL RDW 13.4 % Platelet 175 10^3/mcL MPV 8.6 fL Neutrophil % 51.7 % Lymphocyte % 38.0 % Monocyte % 8.2 % Eosinophil % 1.5 % Basophil % 0.6 % Neutrophil, Absolute 4.3 10^3/mcL Lymphocyte, Absolute 3.1 10^3/mcL Monocyte, Absolute 0.7 10^3/mcL Eosinophil, Absolute 0.1 10^3/mcL Basophil, Absolute 0.1 10^3/mcL Glucose Level 102 mg/dL Sodium Level 139 mEq/L Potassium Level 3.7 mEq/L Chloride 106 mEq/L CO2 28 mEq/L Electrolyte Balance 5.0 mEq/L BUN 18.0 mg/dL Creatinine Lvl (s) 1.09 mg/dL BUN/Creatinine Ratio 16.5 ratio Calcium Lvl 9.3 mg/dL GFR Non- 54 ml/min/1.73sqm NA GFR >60 ml/min/1.73sqm NA Creatinine Clearance Calc 63.65 mL/min 04/24/2024 6:29 EDT ondansetron 4 mg mg 04/24/2024 5:58 EDT Pain Scale Assessment PAINAD Primary Pain Location Low back Primary Pain Intensity 1 Reason for PRN medication Pain management PRN medication effectiveness Yes PRN Medication Effectiveness Evaluation PRN Medication Effectiveness Evaluation 04/24/2024 5:23 EDT Positioning Repositions self Activity Status ADL Awake Standard Safety Call device within reach, Safety level maintained High Risk Safety Room check performed Demonstrates Correct Call Light Use Yes 04/24/2024 5:11 EDT Pain Scale Assessment PAINAD Primary Pain Location Low back Primary Pain Intensity 1 Reason for PRN medication Pain management PRN medication effectiveness Yes PRN Medication Effectiveness Evaluation PRN Medication Effectiveness Evaluation 04/24/2024 4:58 EDT diazepam 5 mg mg 04/24/2024 4:51 EDT Electrocardiogram - EKG - CV Completed (In Progress) 04/24/2024 4:41 EDT Primary Pain Intensity 8 HYDROmorphone 0.5 mg mg 04/24/2024 3:05 EDT Pain Scale Assessment PAINAD Primary Pain Location Low back Primary Pain Intensity 1 Reason for PRN medication Nausea and/or vomiting Reason for PRN medication Pain management PRN medication effectiveness Yes PRN Med for Nausea/Vomiting Effective Yes PRN Medication Effectiveness Evaluation PRN Medication Effectiveness Evaluation PRN Medication Effectiveness Evaluation PRN Medication Effectiveness Evaluation 04/24/2024 2:54 EDT Skin Assessment Verification Transfer 04/24/2024 2:36 EDT Sodium Chloride 0.9% Begin Bag 1,000 mL mL 04/24/2024 2:35 EDT Temperature Oral 36.4 DegC Heart Rate Monitored 77 bpm Respiratory Rate 16 br/min Systolic Blood Pressure Non-Invasive 125 mmHg Diastolic Blood Pressure Non-Invasive 77 mmHg Reason For Taking VItal Signs Routine Primary Pain Location Low back Primary Pain Intensity 8 Primary Pain Pharma Intervention Medication Primary Pain Nonverbal Response Nods Yes Pain Scale Type 0-10 Pain scale Nail Bed Color [place] Capillary Refill < 2 seconds Heart Rhythm Regular Dorsalis Pedis Pulse, Left 2+ Normal Dorsalis Pedis Pulse, Right 2+ Normal Radial Pulse, Left 2+ Normal Radial Pulse, Right 2+ Normal Respirations Unlabored Respiratory Pattern Regular Breath Sounds Auscultated Anterior only All Lobes Breath Sounds Clear Cough None Oxygen Therapy Room air Oxygen Saturation 92 % LOW Tracheal Position Midline GI Symptoms Constipation Abdomen Description Non-distended, Soft Abdomen Palpation Non-Tender, Soft Passing Flatus Yes Bowel Movement Last Date 04/18/2024 Bowel Continence No bowel movement Bowel Sounds All Quadrants Present Urinary Elimination Incontinence Facial Movement Symmetric resting/crying All Extremity Description Normal for ethnicity Skin Temperature Warm Temperature All Extremities Warm Skin Description [place], Normal for ethnicity Skin Integrity Intact Skin Turgor Elastic Mucous Membrane Color [place] Mucous Membrane Description Moist Antecubital Right 04/24/2024 18 gauge Peripheral IV Activity: Assessed Peripheral IV Dressing Condition: Clean, Dry, Intact Peripheral IV Dressing Activity: Transparent dressing Peripheral IV Line Status/Patency: Flushes easily, 10ml normal saline flush Peripheral IV Site Condition: No complications Peripheral IV Equipment: PRN Adaptor Neurological Language Able to speak clearly Neurological Symptoms Numbness, Tingling, Weakness Gait Unable to assess Extremity Movement Unequal Swallowing Difficulty None Characteristics of Communication Appropriate Characteristics of Speech Clear Facial Symmetry Symmetric Level of Consciousness Alert Aspiration Risk None JILLIAN No Left Pupil Description Regular Right Pupil Description Regular Left Pupil Reaction Brisk Right Pupil Reaction Brisk Pupil Size, Left 4 mm Pupil Size, Right 2 mm Neuromuscular Symptoms Numbness, Tingling Left Upper Extremity Strength Strong Right Upper Extremity Strength Strong Left Lower Extremity Strength Strong Right Lower Extremity Strength Moderate Tone All Extremities Normal Left Upper Extremity Sensation Intact Right Upper Extremity Sensation Intact Left Lower Extremity Sensation Intact Right Lower Extremity Sensation Numbness, Tingling CN V Facial Sensation Light touch equal bilaterally CN VII Facial Expression and Symmetry Facial movement symmetrical CN VIII Hearing Spoken word equally audible left/right CN IX, X Swallowing, Gag Reflex Swallowing present Affect/Behavior Appropriate, Calm, Cooperative Orientation Oriented x 4 Positioning Repositioned right side, Repositions self, Encouraged/reinforced importance of turning Standard Safety ID band on, Call device within reach, Bed in low position, Wheels locked, Upper/Half-Length side-rails up, Safety level maintained, Non- Slip footwear High Risk Safety Room check performed Demonstrates Correct Call Light Use Yes HYDROmorphone 0.5 mg mg ondansetron 4 mg mg Eating Difficulties None 04/24/2024 1:57 EDT Neurological Language Able to speak clearly Characteristics of Communication Appropriate Characteristics of Speech Clear Neuromuscular Symptoms Numbness Left Upper Extremity Strength Moderate Right Upper Extremity Strength Moderate Left Lower Extremity Strength Moderate Right Lower Extremity Strength Weak 04/24/2024 1:51 EDT Able To Drink Order Detail Yes Able To Drink Order Detail Yes Able To Sign Consents Order Detail Yes Able To Sign Consents Order Detail Yes Code Status Order Detail Full code Code Status Order Detail Full code IV Order Detail Yes IV Order Detail Yes Dialysis Schedule Order Detail N/A Dialysis Schedule Order Detail N/A Has Diabetes Order Detail Yes Has Diabetes Order Detail Yes Isolation Precautions Order Detail None Isolation Precautions Order Detail None Nurse Collect Order Detail 0 Nurse Collect Order Detail 0 Oxygen Order Detail No Oxygen Order Detail No Order Detail No Order Detail No Prior Valve Replacement Order Detail No Prior Valve Replacement Order Detail No Transport Mode Order Detail Patient bed Transport Mode Order Detail Patient bed [employer] Instructor Details Form [employer] Instructor Details Form [employer] Instructor Details Form [employer] Instructor Details Form 04/24/2024 1:50 EDT Blood Glucose, Capillary 108 mg/dL Skin Assessment Verification Not Done: Task Duplication (Not Done) Skin Assessment Verification Not Done: Task Duplication (Not Done) Mechanical VTE Prophylaxis Education Not Done: Task Duplication (Not Done) Mechanical VTE Prophylaxis Education Not Done: Task Duplication (Not Done) Sequential Compression Device Not Done: Task Duplication (Not Done) Sequential Compression Device Not Done: Task Duplication (Not Done) ED Valuables and Belongings Form Not Done (Not Done) ED Valuables and Belongings Form Not Done (Not Done) Sequential Compression Device Form Not Done (Not Done) Sequential Compression Device Form Not Done (Not Done) 04/24/2024 1:19 EDT Pain Scale Assessment 0-10 Pain scale Primary Pain Location Low back Primary Pain Intensity 7 Reason for PRN medication Pain management PRN medication effectiveness No PRN Medication Effectiveness Evaluation PRN Medication Effectiveness Evaluation 04/24/2024 0:56 EDT Designated Person #1 We May Share PHI Designated Person #1 We May Share PHI Designated Person #1 Relationship Spouse Designated Person #2 We May Share PHI [place] Designated Person #2 Relationship Mother Privacy Restrictions Requested None Height 172.7 cm Height in inches 68 inch(es) Admission Weight 112 kg Weight Lbs 246.4 lb [place] Body Weight 63.88 kg BSA Admission 2.24 Body Mass Index 37.55 kg/m2 Patient Type Inpatient Thrombosis Risk Factors (1) Obesity (greater than 20% over ideal body weight or BMI Thrombosis Risk Factor Add'l Assessment NA Thrombosis Risk Score 1 Status No, per patient Thoughts of Harming Others - History No Thoughts of Suicide - History No Hospital Clergy to Visit Patient Verbalizes No Spiritual Needs Sensory Deficits None Advanced Directives No - refuses information Infectious Disease Symptoms Patient states no symptoms Infectious Disease Recent Exposure No Alcohol and Drug Use No Employee of Institutional Living No Health Care Employee No History of Exposure to TB No History of Positive Chest X-Ray for TB No History of Positive TB Skin Test No Homeless No Known Immunosuppression No Recent Immigrant No Resident of Institutional Living No Bloody Sputum No Fatigue No Fever No Loss of Appetite No Night Sweats No Persistent Cough > 3 Weeks No Weight Loss No Barriers to Learning None evident Teaching Method Explanation Preferred Spoken Language Haitian Preferred Written Language Haitian Teaching Evaluation Needs further teaching Safety Brochure Information Reviewed Yes Bea Haque Video Viewed Yes Information Given by Patient Patient's Current Physicians Patient's Current Physicians Discharge To, [facility] Skilled facility Prev Test Positive/Diagnosis w/COVID-19 No Current Quarantine/Isolated any Illness No Any Contact with Sick Animals/Birds No Traveled Anywhere in Last 30 Days No Lost Weight Unintentionally Recently No Eat Poorly Due to Decreased Appetite No Total MST Score 0 No Personal Devices, Patient Valuables Glasses Admission Note-Nursing Patient History 04/24/2024 0:50 EDT Diagnosed With Sleep Apnea Yes 04/24/2024 0:46 EDT Temperature Oral 36.2 DegC Peripheral Pulse Rate 89 bpm Respiratory Rate 18 br/min Systolic Blood Pressure Non-Invasive 122 mmHg Diastolic Blood Pressure Non-Invasive 85 mmHg Primary Pain Location Low back Primary Pain Intensity 7 Primary Pain Intensity 7 Primary Pain Pharma Intervention Medication Primary Pain Nonverbal Response Nods Yes Pain Scale Type 0-10 Pain scale Heart Rhythm Regular Dorsalis Pedis Pulse, Left 2+ Normal Dorsalis Pedis Pulse, Right 2+ Normal Radial Pulse, Left 2+ Normal Radial Pulse, Right 2+ Normal Respirations Unlabored Respiratory Pattern Regular Breath Sounds Auscultated Anterior and posterior All Lobes Breath Sounds Clear Oxygen Therapy Room air Oxygen Saturation 92 % LOW Abdomen Description Non-distended Abdomen Palpation Non-Tender Passing Flatus Yes Bowel Movement Last Date 04/18/2024 Bowel Sounds All Quadrants Present Urinary Elimination Incontinence Skin Temperature Warm Skin Description [place], Normal for ethnicity Skin Integrity Intact IV Present Present Neurological Language Able to speak clearly Neurological Symptoms Numbness Gait Steady Extremity Movement Unequal Swallowing Difficulty None Characteristics of Communication Appropriate Characteristics of Speech Clear Level of Consciousness Alert JILLIAN Yes Neuromuscular Symptoms Numbness Left Upper Extremity Strength Moderate Right Upper Extremity Strength Moderate Left Lower Extremity Strength Moderate Right Lower Extremity Strength Weak Tone All Extremities Normal Left Upper Extremity Sensation Intact Right Upper Extremity Sensation Intact Left Lower Extremity Sensation Intact Right Lower Extremity Sensation Numbness Affect/Behavior Appropriate, Cooperative, Anxious Orientation Oriented x 4 Allergies Yes Consent Form Signed Yes Patient Dressed In Hospital gown CHG Preoperative Wash/Wipe Night before procedure History & Physical On Chart Yes Obstructive Sleep Apnea Assess Completed Yes (Modified) Orientation Assessment Oriented x 4 NPO Status Initiated Linen Change Done Patient ID Band on and Verified Yes Blood Consent Signed Yes 04/24/2024 0:45 EDT Sensory Perception Kris No impairment Moisture Kris Rarely moist Activity Kris Walks frequently Mobility Kris No limitations Nutrition Kris Excellent Friction and Shear Kris No apparent problem Kris Score 23 Hospital Acquired Pressure Injury Risk None/minimal risk (score 19-23) Continuous IV Infusions 0 Farmer Screen Admission History of Fall in Last 3 Months Farmer Yes Presence of Secondary Diagnosis Farmer No Use of Ambulatory Aid Farmer None, bedrest, wheelchair, nurse IV/PRN Adapter Fall Risk Farmer No Gait Weak or Impaired Fall Risk Farmer Normal, bedrest, immobile Mental Status Fall Risk Farmer Oriented to own ability Farmer Fall Risk Score 25 Violence Risk Confused No Violence Risk Irritable No Violence Risk Boisterous No Violence Risk Verbal Threats No Violence Risk Physical Threats No Violence Risk Attacking Objects No Violence Risk Predictor Score 0 Violence Risk Intervention None Violence Risk Current Interventions None Ambulation Ambulation in Room Positioning Encouraged/reinforced importance of turning Mobility Assistance Level Independent Nurse Safety Checks q2hrs Performed 11pm-3am Standard Safety ID band on, Call device within reach, Bed in low position, Wheels locked, Upper/Half-Length side-rails up, Phone within reach, Safety level maintained Demonstrates Correct Call Light Use Yes 04/24/2024 0:19 EDT Primary Pain Intensity 8 acetaminophen-oxycodone 2 tab(s) tab(s) 04/24/2024 0:14 EDT Heart Rate Monitored 74 bpm Respiratory Rate 18 br/min Systolic Blood Pressure Non-Invasive 145 mmHg HI Diastolic Blood Pressure Non-Invasive 92 mmHg HI Oxygen Therapy Room air Oxygen Saturation 95 % 04/23/2024 23:15 EDT Pain Scale Assessment 0-10 Pain scale Primary Pain Location Low back Primary Pain Intensity 7 Reason for PRN medication Pain management PRN medication effectiveness No PRN Medication Effectiveness Evaluation PRN Medication Effectiveness Evaluation 04/23/2024 23:00 EDT Oral Intake 0 mL Stool Count 0 EA Urine Count 1 EA 04/23/2024 22:15 EDT diazepam 5 mg mg 04/23/2024 21:31 EDT Notify date/time 04/23/2024 21:31 Provider [facility] Method Phone Information Communicated Medication request 04/23/2024 20:39 EDT Pain Scale Assessment 0-10 Pain scale Primary Pain Location Flank Primary Pain Intensity 9 Reason for PRN medication Pain management PRN medication effectiveness No PRN Medication Effectiveness Evaluation PRN Medication Effectiveness Evaluation 04/23/2024 20:09 EDT Primary Pain Intensity 9 HYDROmorphone 0.5 mg mg 04/23/2024 20:08 EDT Heart Rate Monitored 79 bpm Respiratory Rate 16 br/min Systolic Blood Pressure Non-Invasive 142 mmHg HI Diastolic Blood Pressure Non-Invasive 83 mmHg Oxygen Therapy Room air Oxygen Saturation 95 % 04/23/2024 20:02 EDT UA Specimen Type Void UA Color Yellow UA Appear Clear UA Spec Grav 1.025 UA Glucose Negative mg/dL UA Bili Negative UA Ketones Negative mg/dL UA Blood Negative UA pH 5.5 UA Protein Negative mg/dL UA Urobilinogen 0.2 E.U./dL UA Nitrite Negative UA Leuk Est Negative 04/23/2024 19:54 EDT Platelet 232 10^3/mcL Heparin dose (APTT) None APTT 32.3 seconds Protime 11.6 seconds PT International Ratio 1.0 ratio NA Fibrinogen 564 mg/dL HI Plt Base 221 k/mm3 NA Plt ADP 18 k/mm3 NA Plt % Functional 92 % 04/23/2024 17:32 EDT Heart Rate Monitored 88 bpm Respiratory Rate 18 br/min Systolic Blood Pressure Non-Invasive 140 mmHg Diastolic Blood Pressure Non-Invasive 91 mmHg HI Oxygen Therapy Room air Oxygen Saturation 98 % 04/23/2024 17:30 EDT Primary Pain Intensity 9 acetaminophen-hydrocodone 1 tab(s) tab(s) 04/23/2024 16:57 EDT Systolic Blood Pressure Non-Invasive 157 mmHg HI Diastolic Blood Pressure Non-Invasive 92 mmHg HI 04/23/2024 16:43 EDT Peripheral Pulse Rate 73 bpm Respiratory Rate 17 br/min Systolic Blood Pressure Non-Invasive 145 mmHg HI Diastolic Blood Pressure Non-Invasive 87 mmHg Respirations Unlabored Respiratory Pattern Regular Oxygen Therapy Room air Oxygen Saturation 98 % Neurological Language Able to speak clearly, Follows simple commands Neurological Symptoms Numbness Characteristics of Communication Appropriate Characteristics of Speech Clear Level of Consciousness Alert Affect/Behavior Appropriate, Calm, Cooperative Orientation Oriented x 4 04/23/2024 14:58 EDT Provider Letter Courtesy Copy 04/23/2024 14:45 EDT Heart Rate Monitored 84 bpm Respiratory Rate 18 br/min Systolic Blood Pressure Non-Invasive 120 mmHg Diastolic Blood Pressure Non-Invasive 73 mmHg Oxygen Therapy Room air Oxygen Saturation 97 % 04/23/2024 13:56 EDT MRI Spine Lumbar w/ + w/o Contrast MRI SPINE LUMBAR W/ + W/O CONTRAST 04/23/2024 13:13 EDT LORazepam 0.5 mg mg 04/23/2024 12:11 EDT Primary Pain Intensity 10 morphine 4 mg mg ondansetron 4 mg mg 04/23/2024 12:04 EDT Heart Rate Monitored 81 bpm Respiratory Rate 18 br/min Systolic Blood Pressure Non-Invasive 147 mmHg HI Diastolic Blood Pressure Non-Invasive 88 mmHg Oxygen Therapy Room air Oxygen Saturation 98 % 04/23/2024 10:25 EDT Heart Rate Monitored 85 bpm Respiratory Rate 18 br/min Systolic Blood Pressure Non-Invasive 133 mmHg Diastolic Blood Pressure Non-Invasive 78 mmHg Oxygen Therapy Room air Oxygen Saturation 98 % 04/23/2024 10:17 EDT acetaminophen 650 mg mg LORazepam 0.5 mg mg 04/23/2024 10:16 EDT ED Note-Physician ED/Urgent Care Provider Note 04/23/2024 9:36 EDT ED Note-Physician ED/Urgent Care Provider Note (Modified) 04/23/2024 9:06 EDT Primary Pain Location Low back Primary Pain Laterality Right Primary Pain Intensity 8 Primary Pain Onset Gradual Primary Pain Quality Aching, Throbbing Primary Pain Nonverbal Response Nods Yes Pain Scale Type 0-10 Pain scale Nail Bed Color [place] Capillary Refill < 2 seconds Dorsalis Pedis Pulse, Right 2+ Normal Respirations Unlabored Respiratory Pattern Regular Abdomen Description Non-distended, Symmetric, Soft Abdomen Palpation Non-Tender Urinary Elimination Voiding with difficulties Voiding Difficulties Incontinence Skin Temperature Warm Skin Description Normal for ethnicity Mucous Membrane Color [place] Mucous Membrane Description Moist Neurological Language Able to speak clearly, Follows simple commands Neurological Symptoms Numbness Characteristics of Communication Appropriate Characteristics of Speech Clear Level of Consciousness Alert Right Lower Extremity Strength Weak Right Lower Extremity Tone Normal Right Lower Extremity Sensation Numbness, Pain Violence Risk Confused No Violence Risk Irritable No Violence Risk Boisterous No Violence Risk Verbal Threats No Violence Risk Physical Threats No Violence Risk Attacking Objects No Violence Risk Predictor Score 0 Violence Risk Intervention None Violence Risk Current Interventions None Affect/Behavior Appropriate, Calm, Cooperative Appearance Clean Orientation Oriented x 4 Standard Safety ID band on, Allergy Band on, Call device within reach, Bed in low position, Wheels locked, Upper/Half-Length side-rails up, Phone within reach, personal items within reach, Safety level maintained 04/23/2024 9:02 EDT Status No, per patient Farmer Screen ED/SPINNER FRAME patient History of Fall in Last 3 Months Farmer Yes History of Fall in Last 3 Months Farmer Yes Presen (more content not included)... 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 COMPARISON: CT lumbar spine 04/21/2024, CT abdomen pelvis 11/10/2020 FINDINGS: ALIGNMENT: Trace degenerative anterolisthesis of L4 on L5. VERTEBRAE: No evidence of an acute/recent fracture. Anterior bridging degenerative enthesopathy changes involve T12-L1. Moderately prominent anterior spinal changes are at L1-L2 are also noted. Modic type 2 endplate degenerative changes are present at the T12-L1 level. 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 A 10 mm hyperintense focus on T1 and T2 weighted images is located in the left iliac wing not conspicuous on the examinations of reference. DISCS: Widespread disc desiccation. Mild disc height loss involves L4-5. CONUS MEDULLARIS AND CAUDA EQUINA: The conus medullaris terminates at L1-L2 and is normal. The cauda equina are unremarkable. Variation fatty infiltration of the filum terminale. PARAVERTEBRAL SOFT TISSUES: Mild atrophy of the posterior paraspinous muscles more pronounced on the right at L4 and L5. SPINAL CANAL: Overall reduced caliber of the spinal canal on the basis of congenitally short pedicles. EVALUATION OF INDIVIDUAL LEVELS DEMONSTRATES: T12-L1: A left subarticular disc extrusion effaces the ventral and left lateral spinal cord causing [id number] central canal stenosis without foraminal narrowing. L1-2: No disc herniation, central canal stenosis or foraminal narrowing. Mild bilateral facet arthrosis with a small left facet effusion. L2-3: Small circumferential disc bulge and mild facet arthrosis causes mild bilateral foraminal narrowing without central canal stenosis. A small left facet joint effusion is noted. L3-4: Trace diffuse bulge of the posterior annulus and mild facet arthrosis without disc herniation, central canal stenosis or foraminal narrowing. L4-5: Diffuse posterior disc bulge most pronounced to the right with a superimposed right subarticular foraminal and extraforaminal disc herniation, small canal, ligamentum flavum hypertrophy and facet arthrosis results in impingement of the descending right L5 nerve root (axial T2 image 13 series 6), moderate right and mild left foraminal narrowing without central canal stenosis. Enhancement within the right foramen and subarticular zone is noted and must be correlated with any surgical history. Disc may contact the exited bilateral L4 nerve roots. L5-S1: Small diffuse posterior disc bulge, disc unroofing associated with an anterolisthesis L5 on S1, and moderate bilateral facet arthrosis causes mild bilateral foraminal narrowing without central canal stenosis. LIMITED EVALUATION OF UPPER SACRUM AND SACROILIAC JOINTS: DEGENERATIVE CHANGES of the bilateral sacroiliac joints more pronounced on the left. IMPRESSION: 1. Mild to moderate central canal stenosis at T12-L1. 2. Impingement of the descending right L5 and possibly the bilateral exited L4 nerve roots at L4-5. 3. Enhancement within the right L4-5 subarticular and foraminal zones. Correlate with any prior surgical history or interventional procedures. 4. Probable benign 10 mm hyperintense focus on T1 and T2 weighted images within the left iliac crest not conspicuous on CT. Interpreted by: Marco A Ogden MD Preliminary Report By: Marco A Ogden MD Electronically signed By Marco A Ogden MD Dictated Date: 04/23/2024 2:21:49 PM Prelim Date: 04/23/2024 2:44:58 PM Sign Date: 04/23/2024 2:44:58 PM Ordering Provider: [facility]06-05-2024 Hospital Discharge instructions Follow Up Care 04/23/2024 07:55:10 With:BRITTANY LEE, Neurosurgery Address: [address] [place] [phone] When:05/08/2024 09:15:00 Comments:You are scheduled for a follow up appointment with 's nurse practitioner on 05/08/2024 at 915am. This appointment is located at the [facility] Physician Office Building, [address]. With:[facility] has been arranged for you. Please call them at [phone] if you do nothear from them in 1-2 days. Address: When:1-2 days With:KAYCEE ARAUJO DO, Internal Medicine, [facility] Address: [address] [place] [address]- When:1-2 days Comments:Please call the office to schedule a follow-up appointment. [facility] 06-03-2024 Hospital Discharge instructions Patient Education 04/21/2024 08:19:21 Common Spine and Disk Problems Common Spine and Disk Problems The most common serious back problems happen when disks tear, bulge, or rupture. In such cases, an injured disk can no longer cushion the vertebrae and absorb shock. As a result, the rest of your spine may also weaken. This can lead to pain, stiffness, and other symptoms. Torn annulus. A sudden movement may cause a tiny tear in an annulus. Nearby ligaments may stretch. Contained herniated disk. As a disk wears out, the nucleus may bulge into the annulus and press on nerves. Extruded herniated disk. When a disk ruptures, its nucleus can squeeze out and irritate a nerve. Arthritis. As disks wear out over time, bone spurs form. These growths can irritate nerves and inflame facets. Instability. As a disk stretches, the vertebrae slip back and forth. This can put pressure on the annulus. Spondylolisthesis. This is a condition in which one vertebra has moved forward or backward, in relation to the one above or below it. This causes a crack (stress fracture) in the areas that link the vertebrae together. This may put pressure on the annulus, stretch the disk, and irritate nerves. 5530-7986 [employer]. [address] [place] [address]. All rights reserved. This information is not intended as a substitute for professional medical care. Always follow yourhealthcare professional's instructions. Follow Up Care 04/21/2024 06:08:24 With:CHRIS OLMSTEAD MD, Neurosurgery Address: [address] [place] [address] [address] [facility] [place] [address]- [phone] When:2-4 days [facility] 06-03-2024 Emergency department Discharge summary Discharge Instructions Thank you for allowing [facility] to assist you with your healthcare needs. The following is importantdischarge information regarding your hospital visit. Diagnosis from Today's Visit Bulging lumbar disc What to Do Next Instructions from Your Care Team No qualifying data available. Post Acute Orders No qualifying data available. You Need to Schedule the Following Appointments Follow Up with CHRIS OLMSTEAD MD, Neurosurgery When:Within 2-4 days Where:[address] [facility] [place] [address] [phone] Allergies Imitrex(Severe) Hypotension amLODIPine (Mild) lip swelling Actos blurred vision Compazine Anxiety Diflucan Lip swelling Maxalt Hypotension Norflex Anxiety Reglan lisinopril angioedema Medications Please ask your primary doctor or pharmacist before taking any other medication not listed, including over the counter drugs, herbal medications, vitamins and or supplements as they may interact withyour home medications. What How Much When Why Instructions Last Dose New methylPREDNISolone (Medrol Dosepak 4 mg oral tablet) Per Dosepak Instructions by mouth Every day Duration: 6 Days as directed on package labeling Printed Prescription Unchanged albuterol (Albuterol (Eqv-ProAir HFA) 90 mcg/ inh inhalation aerosol) 2 puff(s) by inhalation Every 4 hours as needed for as needed for wheezing Unchanged albuterol (albuterol 2.5 mg/ 3 mL (0.083%) inhalation solution) 3 Milliliter by inhalation Every 4 hours as needed for as needed for wheezing Asthma Unchanged aspirin (aspirin 81 mg oral tablet, chewable) 1 tab(s) by mouth Once a day with a meal Unchanged atorvastatin (atorvastatin 10 mg oral tablet) 1 tab(s) by mouth Once a day Unchanged biotin (biotin 10 mg oral tablet) 1 tab(s) by mouth Once a day Unchanged budesonide (budesonide 3 mg oral delayed release capsule) TAKE 1 CAPSULE BY MOUTH EVERY DAY IN THE MORNING Unchanged budesonide (budesonide 3 mg oral delayed release capsule) TAKE 1 CAPSULE BY MOUTH EVERY DAY IN THE MORNING Unchanged budesonide-formoterol (Symbicort 80 mcg-4.5 mcg/ inh Inhaler) 2 puff(s) by inhalation Two (2) times a day Asthma Unchanged buPROPion (buPROPion 150 mg/ 24 hours (XL) oral tablet, extended release) See instructions TAKE 1 TABLET BY MOUTH EVERY DAY Unchanged buPROPion (buPROPion 150 mg/ 24 hours (XL) oral tablet, extended release) See instructions TAKE 1 TABLET BY MOUTH EVERY DAY Unchanged buPROPion (buPROPion 150 mg/ 24 hours (XL) oral tablet, extended release) See instructions TAKE 1 TABLET BY MOUTH EVERY DAY Unchanged cetirizine (cetirizine 10 mg oral capsule) 1 cap by mouth Once a day as needed for as needed for allergy symptoms Unchanged cholecalciferol (Vitamin D3 250 mcg (10,000 intl units) oral capsule) 1 cap by mouth Every other day Unchanged cloNIDine (cloNIDine 0.3 mg oral tablet) 1 tab(s) by mouth Two (2) times a day Unchanged DME (DME MISCellaneous) See instructions freestyle philly 3 sensors 1 sensor every 14 days #2kits for 28 days and 3 refills E11.65. Unchanged DME (DME MISCellaneous) See instructions Freestyle [place] 3 Sensor. 1 sensor every 14 days. 2 sensors per 30 days. 3 refills. E11.9 Unchanged herbal/ nutritional product (Probiotic) Unchanged levalbuterol (Xopenex 0.63 mg/ 3 mL inhalation solution) 3 Milliliter Nebulized inhalation Three (3) times a day as needed for as needed for wheezing Duration: 30 Days Unchanged metFORMIN (MetFORMIN (Eqv-Glucophage XR) 500 mg oral tablet, EXTENDED RELEASE) 3 tab(s) by mouth Once a day Unchanged montelukast (Singulair 10 mg oral tablet) 1 tab(s) by mouth Once a day Asthma Unchanged multivitamin with minerals (Calcium and Magnesium oral tablet) 1 tab(s) by mouth Once a day 750mg Unchanged omeprazole (omeprazole 40 mg oral delayed release capsule) 1 cap by mouth Once a day Unchanged ondansetron (ondansetron 8 mg oral tablet, disintegrating) 1 tab(s) by mouth Three (3) times a day as needed for Nausea/Vomiting Unchanged propranolol (propranolol 40 mg oral tablet) 1 tab(s) by mouth Once a day Unchanged QUEtiapine (QUEtiapine 50 mg oral tablet) See instructions TAKE 1 TABLET BY MOUTH EVERYDAY AT BEDTIME Unchanged rosuvastatin (rosuvastatin 20 mg oral tablet) 1 tab(s) by mouth Every day Unchanged tirzepatide (Mounjaro 7.5 mg/ 0.5 mL subcutaneous solution) 7.5 Milligram Subcutaneous Every week rotate injection sites Unchanged traZODone (traZODone 100 mg oral tablet) 1 tab(s) by mouth Daily at bedtime Unchanged vitamin E (vitamin E 400 intl units oral capsule) 1 cap by mouth Two (2) times a day Please take this list to your next doctor s visit. Bring all medications you take, including over the counter medications, herbals and other supplements with you to your doctor s visit. Patients and families are reminded to discard old lists and to update any records with all medication providers or retail pharmacies. Education Materials Common Spine and Disk Problems The most common serious back problems happen when disks tear, bulge, or rupture. In such cases, an injured disk can no longer cushion the vertebrae and absorb shock. As a result, the rest of your spine may also weaken. This can lead to pain, stiffness, and other symptoms. Torn annulus. A sudden movement may cause a tiny tear in an annulus. Nearby ligaments may stretch. Contained herniated disk. As a disk wears out, the nucleus may bulge into the annulus and press on nerves. Extruded herniated disk. When a disk ruptures, its nucleus can squeeze out and irritate a nerve. Arthritis. As disks wear out over time, bone spurs form. These growths can irritate nerves and inflame facets. Instability. As a disk stretches, the vertebrae slip back and forth. This can put pressure on the annulus. Spondylolisthesis. This is a condition in which one vertebra has moved forward or backward, in relation to the one above or below it. This causes a crack (stress fracture) in the areas that link the vertebrae together. This may put pressure on the annulus, stretch the disk, and irritate nerves. [id number] [employer]. [address] [place] [address]. All rights reserved. This information is not intended as a substitute for professional medical care. Always follow yourhealthcare professional's instructions. Additional Information VACCINATE! IT SAVES LIVES! Members of the community who have not yet received the COVID-19 vaccine and would like to receive it can visit one of [facility] vaccine clinics. There are many vaccine clinic locations within the [facility]. For locations and available times, please visit [email or web address] It is important to note that some COVID mobile vaccine clinics are held outdoors and may be canceled in rainy or stormy conditions. To learn more about pediatric vaccinations (ages 5-11), we invite you to visit the [facility] webpage. [email or web address]/[email or web address] [email or web address] learn more about the COVID-19 vaccine, we invite you to visit the CDC website for a list of frequently asked questions. https://www.cdc.gov/coronavirus/2019-ncov/vaccines/faq.html [facility] Patient Portal Access Instructions: Stay connected with your healthcare team and access your personal medical information anytime with the [employer] Patient Portal. If you would like a full copy of your medical records please contact the [facility] Medical Records Department Sunday through Sunday between 8a.m. and 4:30p.m. Please follow the directions below to access the portal: 1.Access the email account you provided upon registration to the special care hospital.2.Look for an invitation email from [facility].3.Open the email and access the invitation link: Accept Invitation to [employer]4.Fill in the required garcia to create your account. Sign into [email or web address] with your username and password that you [...] you will allow to register on the [employer] Patient Portal for access to your information. You can also access the [employer] Patient Portal on the [employer] demario. Simply click on Health Records under [employer] and then click on the [employer] logo. HOW TO SAFELY DISPOSE OF PRESCRIPTION MEDICATIONS Please use one of the following methods to safely dispose of your unused medications. 1.Use a drug disposal kit: the drug disposal pouch allows you to safely discard your old and unuseddrugs. Ask your nurse to give you one when you are discharged.2.Visit a local take-back location: Many local pharmacies and police departments have programs that collect old and unwanted prescriptiondrugs. Call your local pharmacy or go to http://bit.ly/0I6Tl3i to find one close to you.3.Make use of household items: Use cat litter or old coffee grounds to dispose medications if other options arenot available. Mix your drugs with these household products, seal them in an airtight container andthrow it into the garbage. Call [facility]: [phone] to be sure your drugs can be disposed of in this way. Some medicines may require a different approach.4.Never flush your medications down the toilet. IF YOU HAVE BEEN PRESCRIBED AN OPIOIDS FOR PAIN If you have been prescribed [...] have withdrawal symptoms when a medication is stopped ? this can develop within a few days. KNOW YOUR RESPONSIBILITIES It is important to know exactly how much and how often to take the opioid pain medications you are prescribed. Never take opioids in higher amounts or more often than prescribed. Do not combine opioids with alcohol or other drugs that cause drowsiness, such as benzodiazepines, also known as benzos,including diazepam and alprazolam, muscle relaxants or sleep aids. Never sell or share prescriptionopioids. This is illegal. Store opioids in a secure place and out of reach of others (including children, family, friends and visitors). The last page(s) of this document has been signed and retained as a CHART COPY Signatures Patient Education Materials Common Spine and Disk Problems Medication Leaflets My discharge plan and instructions have been reviewed and explained to me and I,APRIL ROSA understand my current condition and have read and understand these discharge instructions. I have received a written copy of the plan/instructions. If I have questions, I am aware that I should contact my doctor. 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 The following is importantdischarge information regarding your hospital visit. Diagnosis from Today's Visit Bulging lumbar disc What to Do Next Instructions from Your Care Team No qualifying data available. Post Acute Orders No qualifying data available. You Need to Schedule the Following Appointments Follow Up with CHRIS OLMSTEAD MD, Neurosurgery When:Within 2-4 days Where:[address] [facility] [place] [address]- [phone] Allergies Imitrex(Severe) Hypotension amLODIPine (Mild) lip swelling Actos blurred vision Compazine Anxiety Diflucan Lip swelling Maxalt Hypotension Norflex Anxiety Reglan lisinopril angioedema Medications Please ask your primary doctor or pharmacist before taking any other medication not listed, including over the counter drugs, herbal medications, vitamins and or supplements as they may interact withyour home medications. What How Much When Why Instructions Last Dose New methylPREDNISolone (Medrol Dosepak 4 mg oral tablet) Per Dosepak Instructions by mouth Every day Duration: 6 Days as directed on package labeling Printed Prescription Unchanged albuterol (Albuterol (Eqv-ProAir HFA) 90 mcg/ inh inhalation aerosol) 2 puff(s) by inhalation Every 4 hours as needed for as needed for wheezing Unchanged albuterol (albuterol 2.5 mg/ 3 mL (0.083%) inhalation solution) 3 Milliliter by inhalation Every 4 hours as needed for as needed for wheezing Asthma Unchanged aspirin (aspirin 81 mg oral tablet, chewable) 1 tab(s) by mouth Once a day with a meal Unchanged atorvastatin (atorvastatin 10 mg oral tablet) 1 tab(s) by mouth Once a day Unchanged biotin (biotin 10 mg oral tablet) 1 tab(s) by mouth Once a day Unchanged budesonide (budesonide 3 mg oral delayed release capsule) TAKE 1 CAPSULE BY MOUTH EVERY DAY IN THE MORNING Unchanged budesonide (budesonide 3 mg oral delayed release capsule) TAKE 1 CAPSULE BY MOUTH EVERY DAY IN THE MORNING Unchanged budesonide-formoterol (Symbicort 80 mcg-4.5 mcg/ inh Inhaler) 2 puff(s) by inhalation Two (2) times a day Asthma Unchanged buPROPion (buPROPion 150 mg/ 24 hours (XL) oral tablet, extended release) See instructions TAKE 1 TABLET BY MOUTH EVERY DAY Unchanged buPROPion (buPROPion 150 mg/ 24 hours (XL) oral tablet, extended release) See instructions TAKE 1 TABLET BY MOUTH EVERY DAY Unchanged buPROPion (buPROPion 150 mg/ 24 hours (XL) oral tablet, extended release) See instructions TAKE 1 TABLET BY MOUTH EVERY DAY Unchanged cetirizine (cetirizine 10 mg oral capsule) 1 cap by mouth Once a day as needed for as needed for allergy symptoms Unchanged cholecalciferol (Vitamin D3 250 mcg (10,000 intl units) oral capsule) 1 cap by mouth Every other day Unchanged cloNIDine (cloNIDine 0.3 mg oral tablet) 1 tab(s) by mouth Two (2) times a day Unchanged DME (DME MISCellaneous) See instructions freestyle philly 3 sensors 1 sensor every 14 days #2kits for 28 days and 3 refills E11.65. Unchanged DME (DME MISCellaneous) See instructions Freestyle Philly 3 Sensor. 1 sensor every 14 days. 2 sensors per 30 days. 3 refills. E11.9 Unchanged herbal/ nutritional product (Probiotic) Unchanged levalbuterol (Xopenex 0.63 mg/ 3 mL inhalation solution) 3 Milliliter Nebulized inhalation Three (3) times a day as needed for as needed for wheezing Duration: 30 Days Unchanged metFORMIN (MetFORMIN (Eqv-Glucophage XR) 500 mg oral tablet, EXTENDED RELEASE) 3 tab(s) by mouth Once a day Unchanged montelukast (Singulair 10 mg oral tablet) 1 tab(s) by mouth Once a day Asthma Unchanged multivitamin with minerals (Calcium and Magnesium oral tablet) 1 tab(s) by mouth Once a day 750mg Unchanged omeprazole (omeprazole 40 mg oral delayed release capsule) 1 cap by mouth Once a day Unchanged ondansetron (ondansetron 8 mg oral tablet, disintegrating) 1 tab(s) by mouth Three (3) times a day as needed for Nausea/Vomiting Unchanged propranolol (propranolol 40 mg oral tablet) 1 tab(s) by mouth Once a day Unchanged QUEtiapine (QUEtiapine 50 mg oral tablet) See instructions TAKE 1 TABLET BY MOUTH EVERYDAY AT BEDTIME Unchanged rosuvastatin (rosuvastatin 20 mg oral tablet) 1 tab(s) by mouth Every day Unchanged tirzepatide (Mounjaro 7.5 mg/ 0.5 mL subcutaneous solution) 7.5 Milligram Subcutaneous Every week rotate injection sites Unchanged traZODone (traZODone 100 mg oral tablet) 1 tab(s) by mouth Daily at bedtime Unchanged vitamin E (vitamin E 400 intl units oral capsule) 1 cap by mouth Two (2) times a day Please take this list to your next doctor s visit. Bring all medications you take, including over the counter medications, herbals and other supplements with you to your doctor s visit. Patients and families are reminded to discard old lists and to update any records with all medication providers or retail pharmacies. Education Materials Common Spine and Disk Problems The most common serious back problems happen when disks tear, bulge, or rupture. In such cases, an injured disk can no longer cushion the vertebrae and absorb shock. As a result, the rest of your spine may also weaken. This can lead to pain, stiffness, and other symptoms. Torn annulus. A sudden movement may cause a tiny tear in an annulus. Nearby ligaments may stretch. Contained herniated disk. As a disk wears out, the nucleus may bulge into the annulus and press on nerves. Extruded herniated disk. When a disk ruptures, its nucleus can squeeze out and irritate a nerve. Arthritis. As disks wear out over time, bone spurs form. These growths can irritate nerves and inflame facets. Instability. As a disk stretches, the vertebrae slip back and forth. This can put pressure on the annulus. Spondylolisthesis. This is a condition in which one vertebra has moved forward or backward, in relation to the one above or below it. This causes a crack (stress fracture) in the areas that link the vertebrae together. This may put pressure on the annulus, stretch the disk, and irritate nerves. 4467-3164 [employer]. [address] [place] [address], [place] [address]. All rights reserved. This information is not intended as a substitute for professional medical care. Always follow yourhealthcare professional's instructions. Additional Information VACCINATE! IT SAVES LIVES! Members of the community who have not yet received the COVID-19 vaccine and would like to receive it can visit one of [facility] vaccine clinics. There are many vaccine clinic locations within the [facility]. For locations and available times, please visit www.[email or web address].[email or web address]/. It is important to note that some COVID mobile vaccine clinics are held outdoors and may be canceled in rainy or stormy conditions. To learn more about pediatric vaccinations (ages 5-11), we invite you to visit the [facility] webpage. [email or web address]/[email or web address] [email or web address] learn more about the COVID-19 vaccine, we invite you to visit the CDC website for a list of frequently asked questions. https://www.cdc.gov/coronavirus/2019-ncov/vaccines/faq.html [facility] Patient Portal Access Instructions: Stay connected with your healthcare team and access your personal medical information anytime with the [facility] Patient Portal. If you would like a full copy of your medical records please contact the [facility] Medical Records Department Sunday through Sunday between 8a.m. and 4:30p.m. Please follow the directions below to access the portal: 1.Access the email account you provided upon registration to the hospital.2.Look for an invitation email from [facility].3.Open the email and access the invitation link: Accept Invitation to [employer]4.Fill in the required garcia to create your account. Sign into [email or web address] with your username and password that you [...] you will allow to register on the [facility] Patient Portal for access to your information. You can also access the [facility] Patient Portal on the [employer] demario. Simply click on Health Records under [employer] and then click on the [facility] logo. HOW TO SAFELY DISPOSE OF PRESCRIPTION MEDICATIONS Please use one of the following methods to safely dispose of your unused medications. 1.Use a drug disposal kit: the drug disposal pouch allows you to safely discard your old and unuseddrugs. Ask your nurse to give you one when you are discharged.2.Visit a local take-back location: Many local pharmacies and police departments have programs that collect old and unwanted prescriptiondrugs. Call your local pharmacy or go to http://Sympoz (dba [employer]sy).imbookin (Pogby)/5S5Mm4r to find one close to you.3.Make use of household items: Use cat litter or old coffee grounds to dispose medications if other options arenot available. Mix your drugs with these household products, seal them in an airtight container andthrow it into the garbage. Call [facility]: [phone] to be sure your drugs can be disposed of in this way. Some medicines may require a different approach.4.Never flush your medications down the toilet. IF YOU HAVE BEEN PRESCRIBED AN OPIOIDS FOR PAIN If you have been prescribed [...] have withdrawal symptoms when a medication is stopped ? this can develop within a few days. KNOW YOUR RESPONSIBILITIES It is important to know exactly how much and how often to take the opioid pain medications you are prescribed. Never take opioids in higher amounts or more often than prescribed. Do not combine opioids with alcohol or other drugs that cause drowsiness, such as benzodiazepines, also known as benzos,including diazepam and alprazolam, muscle relaxants or sleep aids. Never sell or share prescriptionopioids. This is illegal. Store opioids in a secure place and out of reach of others (including children, family, friends and visitors). The last page(s) of this document has been signed and retained as a CHART COPY Signatures Patient Education Materials Common Spine and Disk Problems Medication Leaflets My discharge plan and instructions have been reviewed and explained to me and I,APRIL ROSA understand my current condition and have read and understand these discharge instructions. I have received a written copy of the plan/instructions. If I have questions, I am aware that I should contact my doctor. 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 Multiplanar reformatted images are provided for review. Adjustment of mA and/or kV according to patient size was utilized. Automated exposure control, iterative reconstruction, and/or weight based adjustment of the mA/kV was utilized to reduce the radiation dose to as low as reasonably achievable. COMPARISON: Lumbar spine x-ray on 03/22/2024. CT abdomen and pelvis on 01/27/2024. HISTORY: ORDERING SYSTEM PROVIDED HISTORY: Reason for Exam: PT C/O LOWER BACK PAIN WITH RADIATING PAIN DOWN RIGHT LEG, NO SURGICAL HX INJURY FINDINGS: BONES/ALIGNMENT: The lumbar spine alignment is normal. The vertebral bodies are normal in height with no fracture. DEGENERATIVE CHANGES: The T12-L1 intervertebral disc demonstrates mild narrowing. There is prominent osteophytic spur formation anteriorly. There is asymmetric focal disc protrusion posterolaterally to the left. There is calcification of the margins of the disc appears chronic. This creates narrowing of the left neural foramen and mild central canal stenosis. The L4-L5 intervertebral disc demonstrates moderate central bulging without focal disc protrusion. There is mild neural foraminal narrowing bilaterally at L4-L5. Other disc levels show no significant abnormality. Posterior elements are intact. SOFT TISSUES/RETROPERITONEUM: No paraspinal mass is seen. There is no retroperitoneal mass or lymph node enlargement. Abdominal aorta is nonaneurysmal. IMPRESSION: 1. No acute osseous abnormality of the lumbar spine. 2. Focal disc protrusion T12-L1 with left-sided neural foraminal narrowing and mild central canal stenosis. 3. Central bulging L4-L5 without focal disc protrusion. 4. Mild bilateral L4-L5 neural foraminal narrowing. Interpreted by: Reza Perea MD Preliminary Report By: Reza Perea MD Electronically signed By Reza Perea MD Dictated Date: 04/21/2024 7:40:08 AM Prelim Date: 04/21/2024 7:45:05 AM Sign Date: 04/21/2024 7:45:05 AM Ordering Provider: [facility]05-12-2024 Note. MICRO - Microbiology PROCEDURE: Culture Beta Strep Only [*1] SOURCE: Throat BODY SITE: COLLECTED DATE/TIME: 03/28/2024 16:49 EDT RECEIVED DATE/TIME: 03/28/2024 21:59 EDT START DATE/TIME: 03/28/2024 21:59 EDT FREE TEXT SOURCE: FINAL REPORTS Final Report [] Verified Date/Time/Personnel: 03/30/2024 07:24 EDT No Beta Strep isolated at 48hrs. PRELIMINARY REPORTS Preliminary Report [] Verified Date/Time/Personnel: 03/29/2024 08:27 EDT No beta Strep isolated at 24 hours. Performing Locations *1: This test was performed at: [address], [facility] , [facility] ([place])03-22-2024 Note ORIGINAL EXAMINATION: CT OF THE HEAD WITHOUT CONTRAST 03/22/2024 2:24 am TECHNIQUE: CT of the head was performed without the administration of intravenous contrast. Automated exposure control, iterative reconstruction, and/or weight based adjustment of the mA/kV was utilized to reduce the radiation dose to as low as reasonably achievable. COMPARISON: CT head on 01/17/2023 HISTORY: ORDERING SYSTEM PROVIDED HISTORY: Reason for Exam: PATIENT STATES SHE FELL DOWN 3 STEPS AND HIT HER HEAD, -LOC, -THINNERS, C/O RIGHT ORTHODOXY PAIN AND HEADACHE INJURY FINDINGS: BRAIN/VENTRICLES: There is no acute intracranial hemorrhage, mass effect or midline shift. No abnormal extra-axial fluid collection. The carreno-white differentiation is maintained without evidence of an acute infarct. There is no evidence of hydrocephalus. ORBITS: The visualized portion of the orbits demonstrate no acute abnormality. SINUSES: The visualized paranasal sinuses and mastoid air cells demonstrate no acute abnormality. SOFT TISSUES/SKULL: No acute abnormality of the visualized skull or soft tissues. 1.8 cm partly calcified left scalp nodule is stable. IMPRESSION: No acute intracranial abnormality. Interpreted by: Reza Perea MD Preliminary Report By: Reza Perea MD Electronically signed By Reza Perea MD Dictated Date: 03/22/2024 2:25:55 AM Prelim Date: 03/22/2024 2:29:29 AM Sign Date: 03/22/2024 2:29:29 AM Ordering Provider: [facility]05-04-2024 Note ORIGINAL EXAMINATION: 2 XRAY VIEW OF THE PELVIS 03/22/2024 2:09 am COMPARISON: CT abdomen and pelvis on the 01/27/2024 HISTORY: ORDERING SYSTEM PROVIDED HISTORY: Reason for Exam: pain FINDINGS: Injury due to a fall down steps. There is no pelvic fracture. Sacroiliac joints and pubic symphysis have normal alignment. There is no fracture or dislocation of either hip. There is mild acetabular spur formation. IMPRESSION: 1. No fracture or dislocation of the pelvis. 2. Mild osteoarthritis of both hips. Interpreted by: Reza Perea MD Preliminary Report By: Reza Perea MD Electronically signed By Reza Perea MD Dictated Date: 03/22/2024 2:13:18 AM Prelim Date: 03/22/2024 2:14:45 AM Sign Date: 03/22/2024 2:14:45 AM Ordering Provider: [facility]05-04-2024 Note ORIGINAL EXAMINATION: 2 XRAY VIEWS OF THE LUMBAR SPINE03/22/2024 2:08 am COMPARISON: Lumbar spine x-ray 12/15/2022 HISTORY: ORDERING SYSTEM PROVIDED HISTORY: Reason for Exam: fall Patient fell down steps, pain lower back and numbness down right leg FINDINGS: There are 5 lumbar type vertebral bodies. No acute fracture or spondylolisthesis. Mild to moderate degenerative changes, most notably between L5 and S1. Prominent marginal osteophytes noted between T12 and L1. The included sacroiliac joints are unremarkable. The pelvis is dictated separately. Limited evaluation of the sacral ala secondary to overlying bowel. Postsurgical changes noted within the pelvic inlet. Phleboliths noted. IMPRESSION: No acute fracture or spondylolisthesis. I have personally reviewed the images of this examination, and agree with the resident's findings and interpretation. Interpreted by: Reza Perea MD Preliminary Report By: Elisabeth Snow Electronically signed By Reza Perea MD Dictated Date: 03/22/2024 2:13:26 AM Prelim Date: 03/22/2024 2:19:16 AM Sign Date: 03/22/2024 2:21:06 AM Ordering Provider[id number] Hospital Discharge instructions Patient Education 01/27/2024 13:06:51 Flank Pain, Uncertain Cause Flank Pain, Uncertain Cause The flank is the area between your upper abdomen and your back. Pain there is often caused by a problem with your kidneys. It might be a kidney infection or a kidney stone. Other causes of flank paininclude spinal arthritis, a pinched nerve from a back injury, or a back muscle strain or spasm. The cause of your flank pain is not certain. You may need other tests. Home care Follow these tips when caring for yourself at home: You may use acetaminophen or ibuprofen to control pain, unless your health care provider prescribedanother medicine. If you have chronic liver or kidney disease, talk with your provider before taking these medicines. Also talk with your provider first if you ve ever had a stomach ulcer or GI bleeding. If the pain is coming from your muscles, you may get relief with ice or heat. During the first 2 days after the injury, put an ice pack on the painful area for 20 minutes every 2 to 4 hours. This will reduce swelling and pain. A hot shower, hot bath, or heating pad works well for a muscle spasm. You can start with ice, then switch to heat after 2 days. You might find that alternating ice and heatworks well. Use the method that feels the best to you. Follow-up care Follow up with your healthcare provider if your symptoms don t get better over the next few days. When to seek medical advice Call your healthcare provider right away if any of these happen: Repeated vomiting Fever of 100.4 F (38 C) or higher, or as directed by your health care provider Flank pain that gets worse Pain that spreads to the front of your belly (abdomen) Dizziness, weakness, or fainting Blood in your urine Burning feeling when you urinate or the need to urinate often Pain in one of your legs that gets worse Numbness or weakness in a leg [id number] [employer]. [address] [place] [address], [place] [address]. All rights reserved. This information is not intended as a substitute for professional medical care. Always follow yourhealthcare professional's instructions. 01/27/2024 13:06:45 Abdominal Pain, Unknown Cause, (Female) Unknown Causes of Abdominal Pain (Female) The exact cause of your belly (abdominal) pain is not clear. This does not mean that this is something to worry about. Everyone likes to know the exact cause of the problem. But sometimes with belly pain, there is no clear-cut cause, and this could be a good thing. The good news is that your symptoms can be treated, and you will feel better. Your condition does not seem serious now. But sometimes the signs of a serious problem may take more time to appear. For this reason, it is important for you to watch for any new symptoms, problems, or worsening of your condition. Over the next few days, the abdominal pain may come and go. Or it may be constant. Other common symptoms can include nausea and vomiting. Sometimes it can be difficult to tell if you feel nauseous. You may just feel bad and not connect that feeling to nausea. Constipation, diarrhea, and a fever maygo along with the pain. The pain may continue even if treated correctly over the following days. Depending on how things go, sometimes the cause can become clear and may need more or different treatment. Additional evaluations, medicines, or tests may also be needed. Home care Your healthcare provider may prescribe medicine for pain, symptoms, or an infection. Follow the healthcare provider's instructions for taking these medicines. General care Rest as much as you can until your next exam. No strenuous activities. Try to find positions that ease discomfort. A small pillow placed on the abdomen may help relieve pain. Something warm on your abdomen (such as a heating pad) may help, but be careful not to burn yourself. Diet Don t force yourself to eat, especially if having cramps, vomiting, or diarrhea. Water is important so you don't get dehydrated. Soup may also be good. Sports drinks may also help,especially if they are not too acidic. Don't drink sugary drinks as this can make things worse. Take liquids in small amounts. Don t guzzle them. Caffeine sometimes makes the pain and cramping worse. Don t take dairy products if you have vomiting or diarrhea. Don't eat large amounts at a time. Wait a few minutes between bites. Eat a diet low in fiber (called a low-residue diet). Foods allowed include refined breads, white rice, fruit and vegetable juices without pulp, tender meats. These foods will pass more easily throughthe intestine. Don t have whole-grain foods, whole fruits and vegetables, meats, seeds and nuts, fried or fatty foods, dairy, alcohol and spicy foods until your symptoms go away. Follow-up care Follow up with your healthcare provider, or as advised, if your pain does not begin to improve in the next 24 hours. Call 911 Call 911 if any of these occur: Trouble breathing Confusion Fainting or loss of consciousness Rapid heart rate Seizure When to seek medical advice Call your healthcare provider right away if any of these occur: Pain gets worse or moves to the right lower abdomen New or worsening vomiting or diarrhea Swelling of the abdomen Unable to pass stool for more than 3 days Fever of 100.4 F (38 C) or higher, or as directed by your healthcare provider. Blood in vomit or bowel movements (dark red or black color) Yellow color of eyes and skin (jaundice) Weakness, dizziness Chest, arm, back, neck, or jaw pain Unexpected vaginal bleeding or missed period Can't keep down liquids or water and you are getting dehydrated [id number] [employer]. [address] [place] [address]. All rights reserved. This information is not intended as a substitute for professional medical care. Always follow yourhealthcare professional's instructions. Follow Up Care 01/27/2024 10:16:26 With:KAYCEE ARAUJO DO, Internal Medicine, [facility] Physicians, [facility] Address: [address] [place], [place] [address] [address] [phone] When:2-4 days [facility] 03-10-2024 Emergency department Discharge summary Discharge Instructions Thank you for allowing [facility] to assist you with your healthcare needs. The following is importantdischarge information regarding your hospital visit. Diagnosis from Today's Visit Abdominal pain, Flank pain Flank pain What to Do Next Instructions from Your Care Team No qualifying data available. Post Acute Orders No qualifying data available. You Need to Schedule the Following Appointments Follow Up with KAYCEE ARAUJO DO, Internal Medicine, [facility], [facility] sub group When Within 2-4 days Where: [address] [place] [address] [phone] Allergies Imitrex (Hypotension) amLODIPine (lip swelling) Actos (blurred vision) Compazine (Anxiety) Maxalt (Hypotension) Norflex (Anxiety) Reglan lisinopril (angioedema) magnesium sulfate (uncertain) Medications Please ask your primary doctor or pharmacist before taking any other medication not listed, including over the counter drugs, herbal medications, vitamins and or supplements as they may interact withyour home medications. What How Much When Why Instructions Last Dose New acetaminophen-hydrocodone (Maricao 325- 5 mg oral tablet) 1 tab(s) by mouth Every 6 hours as needed for as needed for pain Flank pain Abdominal pain Duration: 3 Days Printed Prescription New cephalexin (cephalexin 500 mg oral capsule) 1 cap by mouth Three (3) times a day Duration: 10 Days Printed Prescription Changed ondansetron (ondansetron 4 mg oral tablet, disintegrating) 1 tab(s) by mouth Every 6 hours Duration: 4 Days Printed Prescription Changed ondansetron (ondansetron 8 mg oral tablet, disintegrating) 1 tab(s) by mouth Three (3) times a day as needed for Nausea/Vomiting Unchanged albuterol (Albuterol (Eqv-ProAir HFA) 90 mcg/ inh inhalation aerosol) 2 puff(s) by inhalation Every 4 hours as needed for as needed for wheezing Unchanged albuterol (albuterol 2.5 mg/ 3 mL (0.083%) inhalation solution) 3 Milliliter by inhalation Every 4 hours as needed for as needed for wheezing Asthma Unchanged aspirin (aspirin 81 mg oral tablet, chewable) 1 tab(s) by mouth Once a day with a meal Unchanged atorvastatin (atorvastatin 10 mg oral tablet) 1 tab(s) by mouth Once a day Unchanged benzonatate (Tessalon Perles 100 mg oral capsule) 1 cap by mouth Every 8 hours as needed for as needed for cough Cough Unchanged biotin (biotin 10 mg oral tablet) 1 tab(s) by mouth Once a day Unchanged budesonide-formoterol (Symbicort 80 mcg-4.5 mcg/ inh Inhaler) 2 puff(s) by inhalation Two (2) times a day Asthma Unchanged buPROPion (buPROPion 150 mg/ 24 hours (XL) oral tablet, extended release) See instructions TAKE 1 TABLET BY MOUTH EVERY DAY Unchanged buPROPion (buPROPion 150 mg/ 24 hours (XL) oral tablet, extended release) See instructions TAKE 1 TABLET BY MOUTH EVERY DAY Unchanged cetirizine (cetirizine 10 mg oral capsule) 1 cap by mouth Once a day as needed for as needed for allergy symptoms Unchanged cholecalciferol (Vitamin D3 125 mcg (5000 intl units) oral capsule) 1 cap by mouth Once a day with food Unchanged cloNIDine (cloNIDine 0.3 mg oral tablet) 1 tab(s) by mouth Two (2) times a day Unchanged DME (DME MISCellaneous) See instructions freestyle philly 3 sensors 1 sensor every 14 days #2kits for 28 days and 3 refills E11.65. Unchanged DME (DME MISCellaneous) See instructions Freestyle Philly 3 Sensor. 1 sensor every 14 days. 2 sensors per 30 days. 3 refills. E11.9 Unchanged famotidine (famotidine 20 mg oral tablet) 1 tab(s) by mouth Once a day Unchanged levalbuterol (Xopenex 0.63 mg/ 3 mL inhalation solution) 3 Milliliter Nebulized inhalation Three (3) times a day as needed for as needed for wheezing Duration: 30 Days Unchanged metFORMIN (MetFORMIN (Eqv-Glucophage XR) 500 mg oral tablet, EXTENDED RELEASE) 3 tab(s) by mouth Once a day Unchanged montelukast (Singulair 10 mg oral tablet) 1 tab(s) by mouth Once a day Asthma Unchanged multivitamin (Multivitamin) 1 tab(s) by mouth Once a day Unchanged omega-3 polyunsaturated fatty acids (Fish Oil 1200 mg oral capsule) 1 cap by mouth Once a day Unchanged omeprazole (omeprazole 40 mg oral delayed release capsule) 1 cap by mouth Two (2) times a day Duration: 30 Days Unchanged propranolol (propranolol 40 mg oral tablet) 1 tab(s) by mouth Once a day Duration: 30 Days Unchanged QUEtiapine (QUEtiapine 50 mg oral tablet) See instructions TAKE 1 TABLET BY MOUTH EVERYDAY AT BEDTIME Unchanged spironolactone (spironolactone 50 mg oral tablet) 1 tab(s) by mouth Once a day Unchanged tirzepatide (Mounjaro 5 mg/ 0.5 mL subcutaneous solution) 5 Milligram Subcutaneous Every week rotate injection sites Unchanged traZODone (traZODone 100 mg oral tablet) 1 tab(s) by mouth Daily at bedtime Please take this list to your next doctor s visit. Bring all medications you take, including over the counter medications, herbals and other supplements with you to your doctor s visit. Patients and families are reminded to discard old lists and to update any records with all medication providers or retail pharmacies. Education Materials Flank Pain, Uncertain Cause The flank is the area between your upper abdomen and your back. Pain there is often caused by a problem with your kidneys. It might be a kidney infection or a kidney stone. Other causes of flank paininclude spinal arthritis, a pinched nerve from a back injury, or a back muscle strain or spasm. The cause of your flank pain is not certain. You may need other tests. Home care Follow these tips when caring for yourself at home: You may use acetaminophen or ibuprofen to control pain, unless your health care provider prescribedanother medicine. If you have chronic liver or kidney disease, talk with your provider before taking these medicines. Also talk with your provider first if you ve ever had a stomach ulcer or GI bleeding. If the pain is coming from your muscles, you may get relief with ice or heat. During the first 2 days after the injury, put an ice pack on the painful area for 20 minutes every 2 to 4 hours. This will reduce swelling and pain. A hot shower, hot bath, or heating pad works well for a muscle spasm. You can start with ice, then switch to heat after 2 days. You might find that alternating ice and heatworks well. Use the method that feels the best to you. Follow-up care Follow up with your healthcare provider if your symptoms don t get better over the next few days. When to seek medical advice Call your healthcare provider right away if any of these happen: Repeated vomiting Fever of 100.4 F (38 C) or higher, or as directed by your health care provider Flank pain that gets worse Pain that spreads to the front of your belly (abdomen) Dizziness, weakness, or fainting Blood in your urine Burning feeling when you urinate or the need to urinate often Pain in one of your legs that gets worse Numbness or weakness in a leg [id number] [employer]. [address] [place] [address], [place] [address]. All rights reserved. This information is not intended as a substitute for professional medical care. Always follow yourhealthcare professional's instructions. Unknown Causes of Abdominal Pain (Female) The exact cause of your belly (abdominal) pain is not clear. This does not mean that this is something to worry about. Everyone likes to know the exact cause of the problem. But sometimes with belly pain, there is no clear-cut cause, and this could be a good thing. The good news is that your symptoms can be treated, and you will feel better. Your condition does not seem serious now. But sometimes the signs of a serious problem may take more time to appear. For this reason, it is important for you to watch for any new symptoms, problems, or worsening of your condition. Over the next few days, the abdominal pain may come and go. Or it may be constant. Other common symptoms can include nausea and vomiting. Sometimes it can be difficult to tell if you feel nauseous. You may just feel bad and not connect that feeling to nausea. Constipation, diarrhea, and a fever maygo along with the pain. The pain may continue even if treated correctly over the following days. Depending on how things go, sometimes the cause can become clear and may need more or different treatment. Additional evaluations, medicines, or tests may also be needed. Home care Your healthcare provider may prescribe medicine for pain, symptoms, or an infection. Follow the healthcare provider's instructions for taking these medicines. General care Rest as much as you can until your next exam. No strenuous activities. Try to find positions that ease discomfort. A small pillow placed on the abdomen may help relieve pain. Something warm on your abdomen (such as a heating pad) may help, but be careful not to burn yourself. Diet Don t force yourself to eat, especially if having cramps, vomiting, or diarrhea. Water is important so you don't get dehydrated. Soup may also be good. Sports drinks may also help,especially if they are not too acidic. Don't drink sugary drinks as this can make things worse. Take liquids in small amounts. Don t guzzle them. Caffeine sometimes makes the pain and cramping worse. Don t take dairy products if you have vomiting or diarrhea. Don't eat large amounts at a time. Wait a few minutes between bites. Eat a diet low in fiber (called a low-residue diet). Foods allowed include refined breads, white rice, fruit and vegetable juices without pulp, tender meats. These foods will pass more easily throughthe intestine. Don t have whole-grain foods, whole fruits and vegetables, meats, seeds and nuts, fried or fatty foods, dairy, alcohol and spicy foods until your symptoms go away. Follow-up care Follow up with your healthcare provider, or as advised, if your pain does not begin to improve in the next 24 hours. Call 911 Call 911 if any of these occur: Trouble breathing Confusion Fainting or loss of consciousness Rapid heart rate Seizure When to seek medical advice Call your healthcare provider right away if any of these occur: Pain gets worse or moves to the right lower abdomen New or worsening vomiting or diarrhea Swelling of the abdomen Unable to pass stool for more than 3 days Fever of 100.4 F (38 C) or higher, or as directed by your healthcare provider. Blood in vomit or bowel movements (dark red or black color) Yellow color of eyes and skin (jaundice) Weakness, dizziness Chest, arm, back, neck, or jaw pain Unexpected vaginal bleeding or missed period Can't keep down liquids or water and you are getting dehydrated [id number] [employer]. [address] [place] [address]. All rights reserved. This information is not intended as a substitute for professional medical care. Always follow yourhealthcare professional's instructions. Additional Information VACCINATE! IT SAVES LIVES! Members of the community who have not yet received the COVID-19 vaccine and would like to receive it can visit one of [facility] vaccine clinics. There are many vaccine clinic locations within the [facility]. For locations and available times, please visit [email or web address] It is important to note that some COVID mobile vaccine clinics are held outdoors and may be canceled in rainy or stormy conditions. To learn more about pediatric vaccinations (ages 5-11), we invite you to visit the [facility] webpage. [email or web address]/pages/[email or web address]-[email or web address]-Vsieb-[email or web address] stions.htmlTo learn more about the COVID-19 vaccine, we invite you to visit the CDC website for a list of frequently asked questions. https://www.cdc.gov/coronavirus/2019-ncov/vaccines/faq.html [employer] Patient Portal Access Instructions: Stay connected with your healthcare team and access your personal medical information anytime with the [employer] Patient Portal. If you would like a full copy of your medical records please contact the [facility] Medical Records Department Sunday through Sunday between 8a.m. and 4:30p.m. Please follow the directions below to access the portal: 1.Access the email account you provided upon registration to the special care hospital.2.Look for an invitation email from [facility].3.Open the email and access the invitation link: Accept Invitation to [employer]4.Fill in the required garcia to create your account. Sign into [email or web address] with your username and password that you [...] you will allow to register on the [employer] Patient Portal for access to your information. You can also access the [facility] Patient Portal on the [employer] demario. Simply click on Health Records under HealthData and then click on the [employer] logo. HOW TO SAFELY DISPOSE OF PRESCRIPTION MEDICATIONS Please use one of the following methods to safely dispose of your unused medications. 1.Use a drug disposal kit: the drug disposal pouch allows you to safely discard your old and unuseddrugs. Ask your nurse to give you one when you are discharged.2.Visit a local take-back location: Many local pharmacies and police departments have programs that collect old and unwanted prescriptiondrugs. Call your local pharmacy or go to http://[employer] ([employer]).imbookin (Pogby)/1M6Px1d to find one close to you.3.Make use of household items: Use cat litter or old coffee grounds to dispose medications if other options arenot available. Mix your drugs with these household products, seal them in an airtight container andthrow it into the garbage. Call [facility]: [phone] to be sure your drugs can be disposed of in this way. Some medicines may require a different approach.4.Never flush your medications down the toilet. IF YOU HAVE BEEN PRESCRIBED AN OPIOIDS FOR PAIN If you have been prescribed [...] have withdrawal symptoms when a medication is stopped ? this can develop within a few days. KNOW YOUR RESPONSIBILITIES It is important to know exactly how much and how often to take the opioid pain medications you are prescribed. Never take opioids in higher amounts or more often than prescribed. Do not combine opioids with alcohol or other drugs that cause drowsiness, such as benzodiazepines, also known as benzos,including diazepam and alprazolam, muscle relaxants or sleep aids. Never sell or share prescriptionopioids. This is illegal. Store opioids in a secure place and out of reach of others (including children, family, friends and visitors). The last page(s) of this document has been signed and retained as a CHART COPY Signatures Patient Education Materials Flank Pain, Uncertain Cause Abdominal Pain, Unknown Cause, (Female) Medication Leaflets My discharge plan and instructions have been reviewed and explained to me and I,APRIL ROSA understand my current condition and have read and understand these discharge instructions. I have received a written copy of the plan/instructions. If I have questions, I am aware that I should contact my doctor. 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 Multiplanar reformatted images are provided for review. Automated exposure control, iterative reconstruction, and/or weight based adjustment of the mA/kV was utilized to reduce the radiation dose to as low as reasonably achievable. COMPARISON: None HISTORY: ORDERING SYSTEM PROVIDED HISTORY: Reason for Exam: C/O worsensing right sided flank pain and nausea that started on Sunday after her upper and lower GI scope. abdominal pain FINDINGS: There are no lower thoracic findings. Liver: Normal size and density. No mass or biliary dilatation. Gallbladder: Physiologically distended and otherwise unremarkable in appearance. Common duct: Not dilated. Pancreas: No mass, inflammation, calcification or adjacent fluid collection. Stomach and duodenum: No mass or wall thickening. Spleen: No mass and is normal in size. Right Kidney: No hydronephrosis, solid mass or visible stone. Left Kidney: No hydronephrosis, solid mass or visible stone. Adrenal glands: Normal The large and small bowel loops are unremarkable in appearance. There is an anastomotic site in the sigmoid colon. There is a normal appendix in the RIGHT lower quadrant. Retroperitoneum: No lymphadenopathy or hematoma. Aorta: No aneurysm. Urinary bladder: Normal Uterus is surgically absent. Mesentery: No mass or inflammatory change. No ascites or free air. No abdominal wall masses or external hernias There are no suspicious bone lesions. IMPRESSION: Unremarkable CT scan of the abdomen and pelvis. Interpreted by: Bronson Russell MD Preliminary Report By: Bronson Russell MD Electronically signed By Bronson Russell MD Dictated Date: 01/27/2024 11:58:17 AM Prelim Date: 01/27/2024 12:00:19 PM Sign Date: 01/27/2024 12:00:19 PM Ordering Provider: [facility]03-08-2024 Procedure note [facility]03-08-2024 Procedure [facility] 01-25-2024 Procedure [facility]03-08-2024 Procedure note [facility]10-08-2023 Note. MICRO - Microbiology PROCEDURE: Urine Culture [*1] [...] Locations *1: This test was performed at: [address], [address]- , [facility] ([place])01-19-2023 Hospital Discharge instructions Patient Education 01/19/2023 11:04:08 Migraine Headache, Jevo-jp-Axtq Migraine Headache A migraine headache is a [...] Follow these instructions at home: Medicines Take ntnm-ytt-bierkgc and prescription medicines only as told by your doctor. Ask your doctor if the medicine prescribed to you: ?Requires you to avoid driving or using heavy machinery. ?Can cause trouble pooping (constipation). You may need to take these steps to prevent or treat trouble pooping: ?Drink enough fluid to keep your pee (urine) pale yellow. ?Take cnrc-zut-wcnjuxt or prescription medicines. ?Eat foods that are high in fiber. These include beans, whole grains, and fresh fruits and vegetables. ?Limit foods that are high in fat and sugar. These include fried or sweet foods. Lifestyle Do not drink alcohol. Do not use any products that contain nicotine or tobacco, such as cigarettes, e- cigarettes, and chewing tobacco. If you need help [...] 08/14/2009 Document Revised: 02/27/2020 Document Reviewed: 12/18/2019 [employer] Patient Education 2020 [employer] Follow Up Care 01/16/2023 16:07:19 [facility] Address: [phone] When: only if needed With:KAYCEE ARAUJO DO, Internal Medicine, [facility] Phys[facility], [facility] sub group Address: [address] [place], [place] [address] [address]- When: Unknown Comments:Please call the office to schedule a follow up appointment [facility] 03-03-2023 Note Discharge Instructions Thank you for allowing [facility] to assist you with your healthcare needs. The following is importantdischarge information regarding your hospital visit. Your Care Team KAYCEE ARAUJO DO Your Diagnosis Migraine Hypertension Type 2 diabetes mellitus Left-sided weakness Abdominal pain Cough Ovarian cyst What to do next Instructions From Your Doctor Continue medications as prescribed. Check blood pressure at home in the morning before taking medications. Follow-up with your PCP and neuro care. Scheduled Follow-Up Appointments Appointment Type When With Where Contact InformationENDO OV 01/25/2023 02:45 PM ELIANE PATEL MD [facility] [place] [facility] Procedure Holter Monitor 01/26/2023 09:30 AM [facility] Follow Up Appointments Follow Up with [facility] When Only if needed Where: [phone] Follow Up with KAYCEE ARAUJO DO, Internal Medicine, [facility], [facility] sub group When Why: Please call the office to schedule a follow up appointment Where: [address] [place], [place] [address] [address]- The Following Activity and Diet Have Been [...] follow-up within: 5-7 days, Results Notify to: KAYCEE ARAUJO DO, 01/19/2310:00:00 EST Discharge Radiology No qualifying data available. [...] and or supplements as they may interact withyour home medications. What How Much When Why Instructions Last Dose New aspirin (aspirin 81 mg oral tablet, chewable) 1 tab(s) by mouth Once a day with a meal Pickup at [facility]/pharmacy #[id number] Changed albuterol (Albuterol (Eqv-ProAir HFA) 90 mcg/ inh inhalation aerosol) 2 puff(s) by inhalation Every 4 hours as needed for as needed for wheezing Pickup at [facility]/pharmacy #[id number] Changed albuterol (albuterol 2.5 mg/ 3 mL (0.083%) inhalation solution) 3 Milliliter by inhalation Every 4 hours as needed for as needed for wheezing Pickup at [facility]/pharmacy #[id number] Unchanged atorvastatin (atorvastatin 10 mg oral tablet) [...] by mouth Daily at bedtime Pharmacy Information [facility]/pharmacy #[id number]: [address] [place] [address], [place] [phone] Please take this list to your next [...] Follow these instructions at home: Medicines Take gykp-sbf-lapbzpm and prescription medicines only as told by your doctor. Ask your doctor if the medicine prescribed to you: ? Requires you to avoid driving or using heavy machinery. ? Can cause trouble pooping (constipation). You may need to take these steps to prevent or treat trouble pooping: ? Drink enough fluid to keep your pee (urine) pale yellow. ? Take zbkr-qmy-akqusen or prescription medicines. ? Eat foods that are high in fiber. These include beans, whole grains, and fresh fruits and vegetables. ? Limit foods that are high in fat and sugar. These include fried or sweet foods. Lifestyle Do not drink alcohol. Do not use any products that contain nicotine or tobacco, such as cigarettes, e- cigarettes, and chewing tobacco. If you need help [...] 08/14/2009 Document Revised: 02/27/2020 Document Reviewed: 12/18/2019 Elsevier Patient Education 2020 [employer] Additional Information VACCINATE! IT SAVES LIVES! Members of the community who have not yet received the COVID-19 vaccine and would like to receive it can visit one of [facility] vaccine clinics. There are many vaccine clinic locations within the [facility]. For locations and available times, please visit [email or web address] It is important to note that some COVID mobile vaccine clinics are held outdoors and may be canceled in rainy or stormy conditions. To learn more about pediatric vaccinations (ages 5-11), we invite you to visit the [facility] webpage. [email or web address]/[email or web address] learn more about the COVID-19 vaccine, we invite you to visit the CDC website for a list of frequently asked questions. https://www.cdc.gov/coronavirus/2019-ncov/vaccines/faq.html [facility] Patient Portal Access Instructions: Stay connected with your healthcare team and access your personal medical information anytime with the [facility] Patient Portal.If you would like a full copy of your medical records, please contact the [facility] Medical Records Department, Sunday through Sunday between 8a.m. and 4:30p.m. Please follow the directions below to access the portal: 1.Access the email account you provided upon registration to the special care hospital.2.Look for an invitation email from [facility].3.Open the email and access the invitation link: Accept Invitation to [facility]4.Fill in the required garcia to create your account. Sign into [email or web address] with your username and password that you [...] you will allow to register on the [facility] Patient Portal for access to your information. You can also access the [facility] Patient Portal on the [employer]. Simply click on Health Records under [facility] and then click on the [facility] logo. HOW TO SAFELY DISPOSE OF PRESCRIPTION MEDICATIONS Please use one of the following methods to safely dispose of your unused medications. 1.Use a drug disposal kit: the drug disposal pouch allows you to safely discard your old and unuseddrugs. Ask your nurse to give you one when you are discharged.2.Visit a local take-back location: Many local pharmacies and police departments have programs that collect old and unwanted prescriptiondrugs. Call your local pharmacy or go to http://[employer]z (dba [employer]).imbookin (Pogby)/8N4Uj5v to find one close to you.3.Make use of household items: Use cat litter or old coffee grounds to dispose medications if other options arenot available. Mix your drugs with these household products, seal them in an airtight container andthrow it into the garbage. Call [facility]: [phone] to be sure your drugs can be [...] COPY. Signatures Patient Education Materials Migraine Headache, Qfse-bv-Hiyv Medication Leaflets My discharge plan and instructions have been reviewed and explained to me and I,APRIL ROSA understand my current condition and have read and understand these discharge instructions. I have received a written copy of the plan/instructions. If I have questions, I am aware that I should contact my doctor. 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 Migraine (G43.909 - ICD-10-CM) 2. Hypertension ([id number] - PNED) 3. Type 2 diabetes mellitus [...] acid treatment for migraine. Also complained of left- sided arm weakness and numbness. MRI of the [...] to Physician - Ordered -- 01/17/23 9:56:00 EST, XAVI ALVARADO MD, Routine, left sided weakness, ?complex migraine Imaging Results and Diagnostics MRI Brain w/o Contrast Result Date: January 17, 2023 Verified By: KADE WATSON DO CLINICAL STATEMENT: IMPRESSION: No acute intracranial abnormality. Mild chronic microvascular angiopathy. CT Angiography Neck w/ Contrast Result Date: January 17, 2023 Verified By: PELON SAMUEL MD CLINICAL STATEMENT: IMPRESSION: No hemodynamically significant ICA stenosis. Patent vertebral arteries. I have personally reviewed the images of this examination and agree with theresident's findings and interpretation. CT Angiography Head w/ Contrast Result Date: January 17, 2023 Verified By: PELON SAMUEL MD CLINICAL STATEMENT: IMPRESSION: No large vessel occlusion or hemodynamically significant stenosis. I have personally reviewed the images of this examination and agree with theresident's findings and interpretation. CT Head or Brain w/o Contrast Result Date: January 17, 2023 Verified By: PELON SAMUEL MD CLINICAL STATEMENT: IMPRESSION: No acute intracranial abnormality. XR Chest 1 View Result Date: January 16, 2023 Verified By: UMAIR PICHARDO MD CLINICAL STATEMENT: IMPRESSION: No acute abnormality [...] mcg/inh inhalation aerosol)2 puff(s) by inhalation every 4hours as needed as needed for wheezing. Refills: [...] a day as needed as needed for allergysymptoms. cholecalciferol (Vitamin D3 125 mcg (5000 intl [...] at bedtime. Follow Up Follow Up with [facility] When Within 1-2 days, only if needed Where: Follow Up with KAYCEE ARAUJO DO, Internal Medicine, [facility] sub group When Within 1-2 days Why: Please call the office to schedule a follow up appointment Where: [address] [place] [address]- Follow Up Appointments No qualifying data available. Follow Up Labs/Studies Discharge Labs Discharge Outpatient Labwork - Ordered -- cbc, cmp, follow up, follow-up within: 5-7 days, Results Notify to: KAYCEE ARAUJO DO, 01/19/2310:00:00 EST Discharge Studies Discharge to Outpatient OT [...] by MIKA ARCE on 01/19/2023 10:02 AM [id number] Neurology Progress note Date of Service January [...] BID multivitamin tablet 1 tab(s), Oral, qDay uprvv-8-jldm ethyl esters 1000 mg capsule 1,000 mg [...] Date: January 17, 2023 Verified By: PELON SAMUEL MD CLINICAL STATEMENT: IMPRESSION: No hemodynamically significant ICA stenosis. Patent vertebral arteries. I have personally reviewed the images of this examination and agree with theresident's findings and interpretation. CT Angiography Head w/ Contrast Result Date: January 17, 2023 Verified By: PELON SAMUEL MD CLINICAL STATEMENT: IMPRESSION: No large vessel occlusion or hemodynamically significant stenosis. I have personally reviewed the images of this examination and agree with theresident's findings and interpretation. CT Head or Brain w/o Contrast Result Date: January 17, 2023 Verified By: PELON SAMUEL MD CLINICAL STATEMENT: IMPRESSION: No acute intracranial abnormality. XR Chest 1 View Result Date: January 16, 2023 Verified By: UMAIR PICHARDO MD CLINICAL STATEMENT: IMPRESSION: No acute abnormality [...] DAVID WEN MD on 01/18/2023 10:37 AM [id number] Note Date of Service 01/18/2023 Chief Complaint Nausea Subjective Patient is a 47-year-old female with past medical history of anxiety, CKD 3, depression, diabetes mellitus type 2, hypertension, fibromyalgia, hyperlipidemia, PCOS who presented to the ED for elevated blood pressure. Patient also reports having a horrible headache. Neurology consulted and started the patient on valproic acid treatment for migraine. Also complained of left- sided arm weakness and numbness. MRI of the brain was done showing no acute abnormality. The patient also had CTA of the head and neck which showed nothing acute as well. Echocardiogram with bubble study shows a intra-arterial level shunt likely through a patent foramen ovale, otherwise normal echo. Per neurology, patienteither had hypertensive encephalopathy leading to headache or migraine headache with severe hypertension. PT/OT recommends outpatient therapy. Patient seen and examined resting in bed. Complaining of nausea and a headache. States that she hasnot been able to eat. States that she was vomiting all night. But has not yet vomited this morning.Denied dizziness, chest pain, shortness of breath, diarrhea [...] BID multivitamin tablet 1 tab(s), Oral, qDay szjnm-9-bjqc ethyl esters 1000 mg capsule 1,000 mg [...] Date: January 17, 2023 Verified By: PELON SAMUEL MD CLINICAL STATEMENT: IMPRESSION: No hemodynamically significant ICA stenosis. Patent vertebral arteries. I have personally reviewed the images of this examination and agree with theresident's findings and interpretation. CT Angiography Head w/ Contrast Result Date: January 17, 2023 Verified By: PELON SMAUEL MD CLINICAL STATEMENT: IMPRESSION: No large vessel occlusion or hemodynamically significant stenosis. I have personally reviewed the images of this examination and agree with theresident's findings and interpretation. CT Head or Brain w/o Contrast Result Date: January 17, 2023 Verified By: PELON SAMUEL MD CLINICAL STATEMENT: IMPRESSION: No acute intracranial abnormality. XR Chest 1 View Result Date: January 16, 2023 Verified By: UMAIR PICHARDO MD CLINICAL STATEMENT: IMPRESSION: No acute abnormality [...] of the head and neck which showed nothingacute as well. Migraine headache- Neurology following, continue [...] 23 minutes Digitally Signed by MIKA ARCE APRN-MAXIMUS on 01/18/2023 12:41 PM [id number] Note ORIGINAL EXAMINATION: MRI OF THE BRAIN [...] 01/17/2023 4:36:00 PM Ordering Provider: JONI MACK [id number] Neurology Consult note Date of Service January 17, 2023 Reason for Consultation Spells Referring Physician Dr. Mack History of Present Illness The patient describes a difficulty with blood pressure the past several weeks. She had change in her function at work and colleagues at work and been concerned. 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 Blood pressure has been difficult to control. [...] fund of knowledge, speech, language, short and long term care social worker memory. Cranial nerves - 2,3,4,5,6,7,8,9,10,11,12 intact. Funduscopic [...] Date: January 17, 2023 Verified By: PELON SAMUEL MD CLINICAL STATEMENT: IMPRESSION: No hemodynamically significant ICA stenosis. Patent vertebral arteries. I have personally reviewed the images of this examination and agree with theresident's findings and interpretation. CT Angiography Head w/ Contrast Result Date: January 17, 2023 Verified By: PELON SAMUEL MD CLINICAL STATEMENT: IMPRESSION: No large vessel occlusion or hemodynamically significant stenosis. I have personally reviewed the images of this examination and agree with theresident's findings and interpretation. CT Head or Brain w/o Contrast Result Date: January 17, 2023 Verified By: PELON SAMUEL MD CLINICAL STATEMENT: IMPRESSION: No acute intracranial abnormality. XR Chest 1 View Result Date: January 16, 2023 Verified By: UMAIR PICHARDO MD CLINICAL STATEMENT: IMPRESSION: No acute abnormality [...] qHS, PRN Multivitamin, 1 tab(s), Oral, qDay Mclean-3 1000 mg oral capsule, 1000 mg= 1 [...] DAVID WEN MD on 01/17/2023 04:25 PM [id number] Note ORIGINAL EXAMINATION: MRI OF THE BRAIN [...] Date: 01/17/2023 4:36:00 PM Ordering Provider: JONI [facility]03-01-2023 Note Date of Service 01/17/2023 Patient is a 47-year-old female with past medical history of anxiety, CKD 3, depression, diabetes mellitus type 2, hypertension, fibromyalgia, hyperlipidemia, PCOS who presented to the ED for elevated blood pressure. Patient was admitted by Dr. Mack this morning, please [facility] of HPI assessment and plan. Patient reports since her CT today head and neck she has been having a horrible headache. Headache is worsened by light but not sound. Patient reports she has ahistory of migraines and this is unlike her migrainous headaches she has previously had patient is requesting something as the Tylenol did not help her headache. We discussed the fact that she has man y allergies to migraine medications, will trial a small dose of morphine and consult neurology for further recommendations. Continues to complain of left- sided arm weakness and numbness. Her main concern is her accelerated hypertension and the whooshing sensation she feels. Continue with current plan as outlined including MRI, echo with bubble for TIA/CVA work-up. CT Angiography Neck w/ Contrast Result Date: January 17, 2023 Verified By: PELON SAMUEL MD CLINICAL STATEMENT: IMPRESSION: No hemodynamically significant ICA stenosis. Patent vertebral arteries. I have personally reviewed the images of this examination and agree with theresident's findings and interpretation. CT Angiography Head w/ Contrast Result Date: January 17, 2023 Verified By: PELON SAMEUL MD CLINICAL STATEMENT: IMPRESSION: No large vessel occlusion or hemodynamically significant stenosis. I have personally reviewed the images of this examination and agree with theresident's findings and interpretation. CT Head or Brain w/o Contrast Result Date: January 17, 2023 Verified By: PELON SAMUEL MD CLINICAL STATEMENT: IMPRESSION: No acute intracranial abnormality. XR Chest 1 View Result Date: January 16, 2023 Verified By: UMAIR PICHARDO MD CLINICAL STATEMENT: IMPRESSION: No acute abnormality [...] Dr Henson. Digitally Signed by JOHN NUNO APRN-CREW LEADER/CONTROL ROOM OPERATOR on 01/17/2023 02:42 PM [id number] Evaluation + Plan noteExtracted from: Title:History and Physical Author:MERON MACK MD Date:01/17/23 Left-sided weakness. Patient reports onset of left-sided [...] Urine 06/22/22 * Complete Metabolic Panel 06/22/22 [facility] 03-01-2023 Respiratory therapy Hospital Progress note Respiratory [...] by JOEL Samayoa on 01/17/2023 10:22 AM [id number] History and physical note Date of Service 01/17/23 Chief Complaint Pt monitors her blood pressure regularly at home. 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 anxiety, CKD 3, depression, DM [...] 14.7 G/dL (01/16/23 19:44:00) Hct: 43.3 % (01/16/23 19:44:00) MCV: 88.6 fL (01/16/23:44:00) MCH: 30 pg (01/16/23:44:00) MCHC: 33.9 G/dL (01/16/23:44:00) RDW: 13.9 % (01/16/23:44:00) Platelet: 227 10^3/mcL (01/16/23:44:00) MPV: 8.1 fL (01/16/23:44:00) Monocyte Distribution Width: 16.83 (01/16/23:44:00) Neutrophil %: 56.4 % (01/16/23:44:00) Lymphocyte %: 27.1 % (01/16/23:44:) Monocyte %: 6.4 % (01/16/23:44:00) Eosinophil %: 9.2 % High (01/16/23:44:00) Basophil %: 0.9 % (01/16/23:44:00) Neutrophil, Absolute: 4.5 10^3/mcL (01/16/23:44:00) Lymphocyte, Absolute: 2.2 10^3/mcL (01/16/23:44:00) Monocyte, Absolute: 0.5 10^3/mcL (01/16/23:44:00) Eosinophil, Absolute: 0.7 10^3/mcL (01/16/23:44:00) Basophil, Absolute: 0.1 10^3/mcL (01/16/23:44:00) Glucose Level: 165 mg/dL High (01/16/23:44:00) Sodium Level: 138 mEq/L (01/16/23:44:00) Potassium Level: 3.7 mEq/L (01/16/23:44:00) Chloride: 104 mEq/L (01/16/23:44:00) CO2: 29 mEq/L (01/16/23:44:00) Electrolyte Balance: 5 mEq/L (01/16/23:44:00) BUN: 11 mg/dL (01/16/23:44:00) Creatinine Lvl (s): 1.07 mg/dL (02/28/23 19:44:00) BUN/Creatinine Ratio: 10.3 ratio (01/16/23 19:44:00) [...] (01/16/23 19:44:00) Lab Performed By: Devora Laws (Electrical Tester) (12/27/22 10:22:00) Lab Performing Location: [facility] [id number] [place] [address] (12/27/22 10:22:00) POC Test Comments: called to [facility] (12/27/22 10:22:00) Influenza A (AMB POC): Negative (12/27/22 10:22:00) Influenza B (AMB POC): Positive (Abnormal) (12/27/22 10:22:00) Imaging Results and Diagnostics CT Head or Brain w/o Contrast Result Date: January 17, 2023 Verified By: PELON SAMUEL MD CLINICAL STATEMENT: IMPRESSION: No acute intracranial abnormality. XR Chest 1 View Result Date: January 16, 2023 Verified By: UMAIR PICHARDO MD CLINICAL STATEMENT: IMPRESSION: No acute abnormality [...] stenosis, the patient is appropriate for admission too facility on stepdown. -Echo with bubble -Lipid [...] JONI MACK MD on 01/17/2023 02:22 AM [id number] Note ORIGINAL EXAMINATION: CTA OF THE NECK [...] resident's findings and interpretation. Interpreted by: Pelon Samuel MD Preliminary Report By: Johnnie Sepulveda Electronically signed By Pelon Samuel MD Dictated Date: 01/17/2023 2:50:04 AM Prelim Date: 01/17/2023 2:54:43 AM Sign Date: 01/17/2023 3:20:39 AM Ordering Provider: JONI MACK [id number] Note ORIGINAL EXAMINATION: CTA OF THE HEAD [...] resident's findings and interpretation. Interpreted by: Pelon Samuel MD Preliminary Report By: Johnnie Sepulveda Electronically signed By Pelon Samuel MD Dictated Date: 01/17/2023 2:43:28 AM Prelim Date: 01/17/2023 2:49:39 AM Sign Date: 01/17/2023 3:18:52 AM Ordering Provider: [facility]03-01-2023 Note ORIGINAL EXAMINATION: CTA OF THE NECK [...] resident's findings and interpretation. Interpreted by: Pelon Samuel MD Preliminary Report By: Johnnie Sepulveda Electronically signed By Pelon Samuel MD Dictated Date: 01/17/2023 2:50:04 AM Prelim Date: 01/17/2023 2:54:43 AM Sign Date: 01/17/2023 3:20:39 AM Ordering Provider: [facility]03-01-2023 Note ORIGINAL EXAMINATION: CTA OF THE HEAD [...] resident's findings and interpretation. Interpreted by: Pelon Samuel MD Preliminary Report By: Johnnie Sepulveda Electronically signed By Pelon Samuel MD Dictated Date: 01/17/2023 2:43:28 AM Prelim Date: 01/17/2023 2:49:39 AM Sign Date: 01/17/2023 3:18:52 AM Ordering Provider: [facility]03-01-2023 History and physical note Date of Service 01/17/23 Chief Complaint Pt monitors her blood pressure regularly at home. 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 anxiety, CKD 3, depression, DM [...] 14.7 G/dL (01/16/23 19:44:00) Hct: 43.3 % (01/16/23 19:44:00) MCV: 88.6 fL (01/16/23 19:44:00) MCH: 30 pg (01/16/23 19:44:00) MCHC: 33.9 G/dL (01/16/23 19:44:00) RDW: 13.9 % (01/16/23 19:44:00) Platelet: 227 10^3/mcL (01/16/23 19:44:00) MPV: 8.1 fL (01/16/23 19:44:00) Monocyte Distribution Width: 16.83 (01/16/23 19:44:00) Neutrophil %: 56.4 % (01/16/23 19:44:00) Lymphocyte %: 27.1 % (01/16/23 19:44:00) Monocyte %: 6.4 % (01/16/23 19:44:00) Eosinophil %: 9.2 % High (01/16/23 19:44:00) Basophil %: 0.9 % (01/16/23 19:44:00) Neutrophil, Absolute: 4.5 10^3/mcL (01/16/23 19:44:00) Lymphocyte, Absolute: 2.2 10^3/mcL (02/28/23 19:44:00) Monocyte, Absolute: 0.5 10^3/mcL (01/16/23 19:44:00) Eosinophil, Absolute: 0.7 10^3/mcL (01/16/23 19:44:00) Basophil, Absolute: 0.1 10^3/mcL (01/16/23 19:44:00) Glucose Level: 165 mg/dL High (01/16/23 19:44:00) Sodium Level: 138 mEq/L (01/16/23 19:44:00) Potassium Level: 3.7 mEq/L (01/16/23 19:44:00) Chloride: 104 mEq/L (01/16/23 19:44:00) CO2: 29 mEq/L (01/16/23:44:00) Electrolyte Balance: 5 mEq/L (01/16/23 19:44:00) BUN: 11 mg/dL (01/16/23 19:44:00) Creatinine Lvl (s): 1.07 mg/dL (01/16/23 19:44:00) BUN/Creatinine Ratio: 10.3 ratio (01/16/23:44:00) Calcium Lvl: 9.8 mg/dL (01/16/23 19:44:00) Total [...] (01/16/23 19:44:00) Lab Performed By: Devora Laws (Electrical Tester) (12/27/22 10:22:00) Lab Performing Location: [facility] [id number] [place] [address] (12/27/22 10:22:00) POC Test Comments: called to Margo (12/27/22 10:22:00) Influenza A (AMB POC): Negative (12/27/22 10:22:00) Influenza B (AMB POC): Positive (Abnormal) (12/27/22 10:22:00) Imaging Results and Diagnostics CT Head or Brain w/o Contrast Result Date: January 17, 2023 Verified By: PELON SAMUEL MD CLINICAL STATEMENT: IMPRESSION: No acute intracranial abnormality. XR Chest 1 View Result Date: January 16, 2023 Verified By: UMAIR PICHARDO MD CLINICAL STATEMENT: IMPRESSION: No acute abnormality [...] JONI MACK MD on 01/17/2023 02:22 AM [id number] Note ORIGINAL EXAMINATION: CT OF THE HEAD [...] No acute intracranial abnormality. Interpreted by: Pelon Samuel MD Preliminary Report By: Pelon Samuel MD Electronically signed By Pelon Samuel MD Dictated Date: 01/17/2023 12:10:58 AM Prelim Date: 01/17/2023 12:17:58 AM Sign Date: 01/17/2023 12:17:58 AM Ordering Provider: [facility]03-01-2023 Note ORIGINAL EXAMINATION: CT OF THE HEAD [...] No acute intracranial abnormality. Interpreted by: Pelon Samuel MD Preliminary Report By: Pelon Samuel MD Electronically signed By Pelon Samuel MD Dictated Date: 01/17/2023 12:10:58 AM Prelim Date: 01/17/2023 12:17:58 AM Sign Date: 01/17/2023 12:17:58 AM Ordering Provider: [facility]02-28-2023 Note ORIGINAL EXAMINATION: ONE XRAY VIEW OF [...] acute abnormality is identified. Interpreted by: Umair Pichardo Preliminary Report By: Umair Pichardo Electronically signed By Umair Pichardo Dictated Date: 01/16/2023 5:50:47 PM Prelim Date: 01/16/2023 5:52:35 PM Sign Date: 01/16/2023 5:52:35 PM Ordering Provider: [facility]02-28-2023 Note ORIGINAL EXAMINATION: ONE XRAY VIEW OF [...] acute abnormality is identified. Interpreted by: Umair Pichardo Preliminary Report By: Umair Pichardo Electronically signed By Umair Pichardo Dictated Date: 01/16/2023 5:50:47 PM Prelim Date: 01/16/2023 5:52:35 PM Sign Date: 01/16/2023 5:52:35 PM Ordering Provider: [facility]04-08-2022 Hospital Discharge instructions Patient Education 02/24/2022 12:51:43 [...] cramping, and pain worse. If taking medicines: Vofc-rgl-hjsuutn nausea and diarrhea medicines are generally OK [...] with soap and water and using alcohol-based custom tailor is the best way to prevent the [...] Keep uncooked meats away from cooked and jufsj-rq-pjc foods. Use a food thermometer when cooking. [...] or as directed by your healthcare provider [phone] [employer]. [address] [place] [address], [place] [address]. All rights reserved. This information is not [...] pain, your healthcare provider may recommend using xdho-nep-hddthte pain medicine. If needed, your provide may [...] Weakness, dizziness, or fainting Abnormal vaginal bleeding [id number] [employer]. [address] [place] [address]. All rights reserved. This information is not [...] foods again, start with small amounts of csek-wm-oleqge, low- fat foods. These include apple sauce, [...] increase stomach acid. Don't use aspirin or ttcc-ymq-fjjyupc pain and fever medicines, if possible. This includes nonsteroidal anti-inflammatory drugs (NSAIDs). Lose excess weight. Finish eating at least 2 hours before you go to bed or lie down. Raise the head of your bed. [phone] [employer]. [address] [place] [address], [place] [address]. All rights reserved. This information is not intended as a substitute for professional medical care. Always follow yourhealthcare professional's instructions. Follow Up Care 02/24/2022 05:38:24 With:[facility] Address: When:2-4 days With:JOSÉ MIGUEL AUGUSTE MD Address: When:2-4 days With:KAYCEE ARAUJO DO, Internal Medicine, [facility] Physicians, [facility]/ sub group Address: [address] [place] [address]- When:2-4 days [facility] 09-23-2020 Evaluation + Plan note Future Appointments Appointment Date:08/08/2024 09:30:00 AM Scheduled Provider: Location:[facility] Appointment Type:PT Pool Treatment Appointment Date:08/11/2024 08:15:00 AM Scheduled Provider: Location:[facility] Appointment Type:PT Pool Treatment Appointment Date:08/15/2024 09:30:00 AM Scheduled Provider: Location:[facility] Appointment Type:PT Pool Treatment Appointment Date:08/15/2024 10:30:00 AM Scheduled Provider: Location:[facility] Appointment Type:PT Treatment [facility] Appointment Date:11/21/2024 10:00:00 AM Scheduled Provider:KAYCEE ARAUJO DO Location:[facility] Appointment Type:PC OV Follow Up Future Scheduled Tests Laboratory* Thyroid Stimulating Hormone 01/28/24 * Lipid Profile 01/28/24 * Albumin/Creatinine Ratio, Random Urine 01/28/24 * Vitamin D Level 01/28/24 * Complete Metabolic Panel 01/28/24 [facility] Evaluation + Plan note Future Appointments Appointment Date:02/16/2022 01:30:00 PM Scheduled Provider:ELIANE HENSON MD Location:[facility] Appointment Type:ENDO OV Appointment Date:03/01/2022 10:30:00 AM Scheduled Provider:KAYCEE ARAUJO DO Location:[facility] Appointment Type:PC OV Lab Check Diagnostic Tests Pending * Metanephrines, Plasma 02/10/22 * Renin, Plasma 02/10/22 * Adrenocorticotropic Hormone (ACTH) 02/10/22 * Aldosterone 02/10/22 * 11-Deoxycortisol 02/10/22 * 17-Hydroxyprogesterone 02/10/22 Future Scheduled Tests Laboratory* COVID SARS PCR Screen ( Only) 08/08/21 Radiology* NM Gastric Emptying Study 11/16/21 [facility] evaluation + Plan note Future Appointments Appointment Date:03/02/2022 11:30:00 AM Scheduled Provider:ELIANE HENSON MD Location:[facility] Appointment Type:ENDO OV Appointment Date:03/29/2022 02:30:00 PM Scheduled Provider:KAYCEE ARAUJO DO Location:[facility] Appointment Type:PC OV Lab Check Diagnostic Tests Pending * Urine Culture 02/24/22 * Clostridium difficile (PCR) 02/24/22 * Stool Culture 02/24/22 * Shiga Toxins 1 and 2 02/24/22 Future Scheduled Tests Laboratory* COVID SARS PCR Screen ([facility] Only) 08/08/21 Radiology* NM Gastric Emptying Study 11/16/21 [facility] evaluation + Plan note Future Appointments Appointment Date:01/31/2024 02:00:00 PM Scheduled Provider:ELIANE HENSON MD Location:[facility] Appointment Type:ENDO OV Appointment Date:03/07/2024 02:00:00 PM Scheduled Provider:KAYCEE ARAUJO DO Location:[facility] Appointment Type:PC OV Future Scheduled Tests Laboratory* Thyroid Stimulating Hormone 01/28/24 * Thyroid Stimulating Hormone 02/24/24 * A1C Hemoglobin 02/24/24 * Free T3 02/24/24 * Lipid Profile 01/28/24 * Lipid Profile 02/24/24 * Albumin/Creatinine Ratio, Random Urine 01/28/24 * Albumin/Creatinine Ratio, Random Urine 02/24/24 * Vitamin D Level 01/28/24 * Vitamin D Level 02/24/24 * Complete Metabolic Panel 01/28/24 * Complete Metabolic Panel 02/24/24 [facility] evaluation + Plan note Future Appointments Appointment Date:04/17/2024 02:15:00 PM Scheduled Provider: Location:[facility] Appointment Type:ENDO Nurse Appointment Date:07/17/2024 02:15:00 PM Scheduled Provider:ELIANE HENSON MD Location:[facility] Appointment Type:ENDO OV Appointment Date:11/21/2024 10:00:00 AM Scheduled Provider:KAYCEE ARAUJO DO Location:[facility] Appointment Type:PC OV Follow Up Future Scheduled Tests Laboratory* Thyroid Stimulating Hormone 07/13/24 * Thyroid Stimulating Hormone 01/28/24 * Free T4 07/13/24 * A1C Hemoglobin 07/13/24 * Complete Blood Count 07/13/24 * Lipid Profile 07/13/24 * Lipid Profile 01/28/24 * Albumin/Creatinine Ratio, Random Urine 07/13/24 * Albumin/Creatinine Ratio, Random Urine 01/28/24 * Vitamin D Level 01/28/24 * Complete Metabolic Panel 07/13/24 * Complete Metabolic Panel 01/28/24 Radiology* MA Mammo Screening Bilateral w/ Waldo 03/07/24 [facility] Evaluation + Plan note Future Appointments Appointment Date:04/23/2024 07:30:00 AM Scheduled Provider: Location:[facility] Appointment Type: CARPENTER Appointment Date:07/17/2024 02:15:00 PM Scheduled Provider:ELIANE HENSON MD Location:[facility] Appointment Type:ENDO OV Appointment Date:11/21/2024 10:00:00 AM Scheduled Provider:KAYCEE ARAUJO DO Location:[facility] Appointment Type:PC OV Follow Up Future Scheduled Tests Laboratory* Thyroid Stimulating Hormone 07/13/24 * Thyroid Stimulating Hormone 01/28/24 * Free T4 07/13/24 * A1C Hemoglobin 07/13/24 * Complete Blood Count 07/13/24 * Lipid Profile 07/13/24 * Lipid Profile 01/28/24 * Albumin/Creatinine Ratio, Random Urine 07/13/24 * Albumin/Creatinine Ratio, Random Urine 01/28/24 * Vitamin D Level 01/28/24 * Complete Metabolic Panel 07/13/24 * Complete Metabolic Panel 01/28/24 Radiology* MA Mammo Screening Bilateral w/ Waldo 03/07/24 [facility] Evaluation + Plan note Future Appointments Appointment Date:07/17/2024 02:15:00 PM Scheduled Provider:ELIANE HENSON MD Location:[facility] Appointment Type:ENDO OV Appointment Date:11/21/2024 10:00:00 AM Scheduled Provider:KAYCEE ARAUJO DO Location:[facility] Appointment Type:PC OV Follow Up Future Scheduled Tests Laboratory* Thyroid Stimulating Hormone 07/13/24 * Thyroid Stimulating Hormone 01/28/24 * Free T4 07/13/24 * A1C Hemoglobin 07/13/24 * Complete Blood Count 07/13/24 * Lipid Profile 07/13/24 * Lipid Profile 01/28/24 * Albumin/Creatinine Ratio, Random Urine 07/13/24 * Albumin/Creatinine Ratio, Random Urine 01/28/24 * Vitamin D Level 01/28/24 * Complete Metabolic Panel 07/13/24 * Complete Metabolic Panel 01/28/24 Radiology* MA Mammo Screening Bilateral w/ Waldo 03/07/24 [facility] Evaluation + Plan note Future Appointments Appointment Date:06/13/2024 01:45:00 PM Scheduled Provider: Location:[facility] Appointment Type:PT Outpatient Evaluation Appointment Date:06/18/2024 08:00:00 AM Scheduled Provider: Location:IR Appointment Type:IR Epidural Injection Appointment Date:07/17/2024 02:15:00 PM Scheduled Provider:ELIANE HENSON MD Location:[facility] Appointment Type:ENDO OV Appointment Date:11/21/2024 10:00:00 AM Scheduled Provider:KAYCEE ARAUJO DO Location:[facility] Appointment Type:PC OV Follow Up Future Scheduled Tests Laboratory* Thyroid Stimulating Hormone 07/13/24 * Thyroid Stimulating Hormone 01/28/24 * Free T4 07/13/24 * A1C Hemoglobin 07/13/24 * Complete Blood Count 07/13/24 * Lipid Profile 07/13/24 * Lipid Profile 01/28/24 * Albumin/Creatinine Ratio, Random Urine 07/13/24 * Albumin/Creatinine Ratio, Random Urine 01/28/24 * Vitamin D Level 01/28/24 * Complete Metabolic Panel 07/13/24 * Complete Metabolic Panel 01/28/24 Radiology* MA Mammo Screening Bilateral w/ Waldo 03/07/24 * IR Epidural Injection 06/18/24 [facility] evaluation + Plan note Future Appointments Appointment Date:07/18/2024 09:30:00 AM Scheduled Provider: Location:[facility] Appointment Type:MRI Spine Lumbar w/ + w/o Contrast Appointment Date:07/23/2024 11:45:00 AM Scheduled Provider:ELIANE HENSON MD Location:[facility] Appointment Type:ENDO OV Appointment Date:07/25/2024 08:45:00 AM Scheduled Provider:Ada Quiñones PTA [id number] Location:[facility] Appointment Type:PT Pool Treatment Appointment Date:07/28/2024 09:00:00 AM Scheduled Provider: Location:[facility] Appointment Type:PT Pool Treatment Appointment Date:08/01/2024 08:00:00 AM Scheduled Provider: Location:[facility] Appointment Type:PT Pool Treatment Appointment Date:08/04/2024 08:15:00 AM Scheduled Provider: Location:[facility] Appointment Type:PT Pool Treatment Appointment Date:08/04/2024 10:00:00 AM Scheduled Provider: Location:[facility] Appointment Type:NS OV Appointment Date:08/08/2024 09:30:00 AM Scheduled Provider: Location:[facility] Appointment Type:PT Pool Treatment Appointment Date:08/11/2024 08:15:00 AM Scheduled Provider: Location:[facility] Appointment Type:PT Pool Treatment Appointment Date:08/15/2024 09:30:00 AM Scheduled Provider: Location:[facility] Appointment Type:PT Pool Treatment Appointment Date:08/15/2024 10:30:00 AM Scheduled Provider: Location:[facility] Appointment Type:PT Treatment - North Appointment Date:11/21/2024 10:00:00 AM Scheduled Provider:KAYCEE ARAUJO DO Location:[facility] Appointment Type:PC OV Follow Up Future Scheduled Tests Laboratory* Thyroid Stimulating Hormone 01/28/24 * Lipid Profile 01/28/24 * Albumin/Creatinine Ratio, Random Urine 01/28/24 * Vitamin D Level 01/28/24 * Complete Metabolic Panel 01/28/24 [facility] Evaluation + Plan note Future Appointments Appointment Date:02/20/2025 03:30:00 PM Scheduled Provider: Location:[facility] Appointment Type:MRI Spine Lumbar w/ + w/o Contrast Appointment Date:02/20/2025 04:15:00 PM Scheduled Provider: Location:[facility] Appointment Type:MRI Spine Thoracic w/ + w/o Contrast Appointment Date:03/04/2025 11:30:00 AM Scheduled Provider:CHRIS OLMSTEAD MD Location:[facility] Appointment Type:NS OV Appointment Date:03/16/2025 02:45:00 PM Scheduled Provider:ELIANE HENSON MD Location:[facility] Appointment Type:ENDO OV Appointment Date:04/27/2025 02:15:00 PM Scheduled Provider:ELIANE HENSON MD Location:[facility] Appointment Type:ENDO OV Future Scheduled Tests Laboratory* ACTH, Plasma 04/29/25 * Cortisol Level 04/29/25 * AChR Binding Abs, Serum 10/12/24 * AChR Blocking Abs, Serum 10/12/24 * C-Reactive Protein 10/12/24 * Thyroid Stimulating Hormone 04/29/25 * Thyroid Stimulating Hormone 01/28/24 * Thyroid Stimulating Hormone 11/17/24 * Free T4 04/29/25 * Free T4 11/17/24 * AChR-modulating Ab 10/12/24 * Salivary Cortisol,MS 08/18/24 * A1C Hemoglobin 04/29/25 * A1C Hemoglobin 11/17/24 * Dehydroepiandrosterone Sulfate 04/29/25 * Free T3 04/29/25 * Free T3 11/17/24 * Lipid Profile 04/29/25 * Lipid Profile 01/28/24 * Lipid Profile 11/17/24 * Albumin/Creatinine Ratio, Random Urine 04/29/25 * Albumin/Creatinine Ratio, Random Urine 01/28/24 * Sedimentation Rate Automated 10/12/24 * Vitamin D Level 04/29/25 * Vitamin D Level 01/28/24 * Vitamin D Level 11/17/24 * Complete Metabolic Panel 04/29/25 * Complete Metabolic Panel 01/28/24 * Complete Metabolic Panel 11/17/24 Radiology* MRI Spine Lumbar w/ + w/o Contrast 02/20/25 * MRI Spine Thoracic w/ + w/o Contrast 02/20/25 [facility] Evaluation + Plan note Future Appointments Appointment Date:04/27/2025 02:15:00 PM Scheduled Provider:ELIANE HENSON MD Location:[facility] Appointment Type:ENDO OV Future Scheduled Tests Laboratory* AChR Binding Abs, Serum 10/12/24 * AChR Blocking Abs, Serum 10/12/24 * C-Reactive Protein 10/12/24 * Thyroid Stimulating Hormone 11/17/24 * Free T4 11/17/24 * AChR-modulating Ab 10/12/24 * Salivary Cortisol,MS 08/18/24 * A1C Hemoglobin 11/17/24 * Free T3 11/17/24 * Lipid Profile 11/17/24 * Sedimentation Rate Automated 10/12/24 * Vitamin D Level 11/17/24 * Complete Metabolic Panel 11/17/24 Radiology* XR Chest 2 Views (PA & Lateral) 03/11/25 [facility] Evaluation + Plan note Future Appointments Appointment Date:04/27/2025 02:15:00 PM Scheduled Provider:ELIANE HENSON MD Location:[facility] Appointment Type:ENDO OV Diagnostic Tests Pending * ACTH, Plasma 04/24/25 Future Scheduled Tests Laboratory* AChR Binding Abs, Serum 10/12/24 * AChR Blocking Abs, Serum 10/12/24 * C-Reactive Protein 10/12/24 * Thyroid Stimulating Hormone 11/17/24 * Free T4 11/17/24 * AChR-modulating Ab 10/12/24 * Salivary Cortisol,MS 08/18/24 * A1C Hemoglobin 11/17/24 * Free T3 11/17/24 * Lipid Profile 11/17/24 * Sedimentation Rate Automated 10/12/24 * Vitamin D Level 11/17/24 * Complete Metabolic Panel 11/17/24 Radiology* XR Chest 2 Views (PA & Lateral) 03/11/25 [facility] Evaluation + Plan note Future Appointments Appointment Date:09/16/2025 09:45:00 PM Scheduled Provider: Location:[facility] Appointment Type:MRI Spine Lumbar w/ + w/o Contrast Appointment Date:09/23/2025 11:45:00 AM Scheduled Provider:CHRIS OLMSTEAD MD Location:[facility] Appointment Type:NS OV Appointment Date:10/05/2025 01:30:00 PM Scheduled Provider:ELIANE HENSON MD Location:[facility] Appointment Type:ENDO OV Future Scheduled Tests Laboratory* AChR Binding Abs, Serum 10/12/24 * AChR Blocking Abs, Serum 10/12/24 * C-Reactive Protein 10/12/24 * Thyroid Stimulating Hormone 07/28/25 * Free T4 07/28/25 * AChR-modulating Ab 10/12/24 * A1C Hemoglobin 07/28/25 * Free T3 07/28/25 * Lipid Profile 07/28/25 * Albumin/Creatinine Ratio, Random Urine 07/28/25 * Sedimentation Rate Automated 10/12/24 * Vitamin D Level 07/28/25 * Complete Metabolic Panel 07/28/25 Radiology* XR Chest 2 Views (PA & Lateral) 03/11/25 * MRI Spine Lumbar w/ + w/o Contrast 09/16/25 [facility] Evaluation + Plan note Future Appointments Appointment Date:09/23/2025 11:45:00 AM Scheduled Provider:CHRIS OLMSTEAD MD Location:[facility] Appointment Type: OV Appointment Date:10/05/2025 01:30:00 PM Scheduled Provider:ELIANE HENSON MD Location:[facility] Appointment Type:ENDO OV Future Scheduled Tests Laboratory* AChR Binding Abs, Serum 10/12/24 * AChR Blocking Abs, Serum 10/12/24 * C-Reactive Protein 10/12/24 * Thyroid Stimulating Hormone 07/28/25 * Free T4 07/28/25 * AChR-modulating Ab 10/12/24 * A1C Hemoglobin 07/28/25 * Free T3 07/28/25 * Lipid Profile 07/28/25 * Albumin/Creatinine Ratio, Random Urine 07/28/25 * Sedimentation Rate Automated 10/12/24 * Vitamin D Level 07/28/25 * Complete Metabolic Panel 07/28/25 Radiology* XR Chest 2 Views (PA & Lateral) 03/11/25 [facility] Evaluation + Plan note Future Appointments Appointment Date:10/05/2025 01:30:00 PM Scheduled Provider:ELIANE HENSON MD Location:[facility] Appointment Type:[facility] OV Future Scheduled Tests Laboratory* AChR Binding Abs, Serum 10/12/24 * AChR Blocking Abs, Serum 10/12/24 * C-Reactive Protein 10/12/24 * Thyroid Stimulating Hormone 07/28/25 * Free T4 07/28/25 * AChR-modulating Ab 10/12/24 * A1C Hemoglobin 07/28/25 * Free T3 07/28/25 * Lipid Profile 07/28/25 * Albumin/Creatinine Ratio, Random Urine 07/28/25 * Sedimentation Rate Automated 10/12/24 * Vitamin D Level 07/28/25 * Complete Metabolic Panel 07/28/25 Radiology* XR Chest 2 Views (PA & Lateral) 03/11/25 [facility] Evaluation note* Diagnosis Suspected COVID-19 virus infection [facility] Diagnosis Onset Date Resolution Status Abdominal pain acute [facility] Work Phone: Evaluation note* Diagnosis Onset Date Resolution Status Abdominal pain acute Abdominal pain acute Eosinophilic gastroenteritis acute Food allergy acute [facility] Work Phone: Evaluation note* Diagnosis Right peroneal mononeuropathy- Primary Numbness and tingling in both hands Weakness of both legs Muscle weakness (generalized) Numbness in feet Cognitive complaints Idiopathic neuropathy Other specified idiopathic peripheral neuropathy Fatigue, unspecified type documented in this encounter [facility] note* Diagnosis Right peroneal mononeuropathy- Primary Numbness and tingling in both hands Weakness of both legs Muscle weakness (generalized) Numbness in feet Cognitive complaints Idiopathic neuropathy Other specified idiopathic peripheral neuropathy Fatigue, unspecified type Vitamin B12 deficiency Other B-complex deficiencies documented in this encounter [facility] course Narrative No data available for this section [facility] Hospital Discharge instructions No data available for this section [facility] Progress note No data available for this section [facility] Summary Purpose Family History No Family History Records Found Relationship Condition Age at Onset Recorded Date/T ephraim sister Asthma Unknown Fibromyalgia Unknown son Asthma Unknown father Malignant neoplasm Unknown Myocardial infarction Unknown mother Fibromyalgia Unknown brother Hypertension Unknown Meniere's disease Unknown Advance Directives No Advanced Directives Records Found Advance Directive Response Recorded Date/ Time Living Will No January 22, 2024 3:44pm Power 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 Continue your current medications. Return if any new problems. Keep the appointment with your doctor tomorrow. documented in this encounter Assessments Diagnosis Elevated blood pressure reading with diagnosis of hypertension General weakness Other malaise and fatigue Chief Complaint and Reason for Visit Chief Complaint Consult Reason for Visit Abdominal pain Chief Complaint Consult ABD PAIN Reason for Visit Abdominal pain Chief Complaint Consult ABD PAIN ABD PAIN follow up Reason for Visit Abdominal pain Abdominal pain Eosinophilic gastroenteritis Food allergy Additional Source Comments INFORMATION SOURCE (unrecogn ized section and content) DATE CREATED AUTHOR 01/28/2019 [facility] DATE CREATED AUTHOR AUTHOR'S ORGANIZ ATION 01/28/2019 [facility] DATE CREATED AUTHOR AUTHOR'S ORGANIZ ATION 05/04/2020 [facility] DATE CREATED AUTHOR AUTHOR'S ORGANIZ ATION 06/20/2022 [facility] DATE CREATED AUTHOR AUTHOR'S ORGANIZ ATION 07/19/2024 [facility] DATE CREATED AUTHOR AUTHOR'S ORGANIZ ATION 10/31/2024 [facility] DATE CREATED AUTHOR AUTHOR'S ORGANIZ ATION 02/06/2025 [facility] DATE CREATED AUTHOR AUTHOR'S ORGANIZ ATION 07/31/2025 [facility] DATE CREATED AUTHOR AUTHOR'S ORGANIZ ATION 08/29/2025 [facility] DATE CREATED AUTHOR AUTHOR'S ORGANIZ ATION 09/21/2025 [facility] DATE CREATED AUTHOR AUTHOR'S ORGANIZ ATION 09/25/2025 [facility] Reason for Visit (unrecogniz ed section and content) Reason Comments Hypertension c/o chest tightness Reason Comments New Patient Numbness Specialty Diagnoses / Procedures Referred By María t Referred To Contact Neurology Diagnoses foot drop Procedures [place] OFFICE/OUTPATIENT NEW MODERATE MDM 45 MINUTES [facility] [address] [place] [address] Phone: tel: [facility] [address] [place] [address] Phone: tel: fax: Referral ID Status Reason Start Date Expiration Date Visits Re quested Visits Authorized [id number] Closed 09/02/2024 09/02/2025 1 1 Reason Onset Date Comments Other 10/28/2024 Scheduling Reason Comments New Patient Care Team (unrecognized sect ion and content) Community Development Manager Relationship Specialty Start Date End Date Corry Banegas DO PCP - General 04/29/16 Team Status: Active Member Role Status Dates KAYCEE ARAUJO , Primary Care Provider Active Team Status: Inactive Member Role Status Dates Dr. Naeem Cole , Attending Provider Active KAYCEE ARAUJO , Primary Care Provider, Referring P rovider Active Team Status: Inactive Member Role Status Dates KAYCEE ARAUJO , Primary Care Provider Active Dr. Naeem Cole , Attending Provider, Referring Provider Active Team Status: Active Member Role Status Dates KAYCEE ARAUJO , Primary Care Provider, Referring P rovider Active Dr. Naeem Cole , Attending Provider, Other Prov ider Active Team Status: Inactive Member Role Status Dates KAYCEE ARAUJO , Primary Care Provider, Referring P rovider Active Dr. Naeem Cole , Attending Provider Active Community Development Manager Relationship Specialty Start Date End Date Kelvin Reilly DO [address] [place] [id number] PCP - General 04/21/20 Community Development Manager Relationship Specialty Start Date End Date Kelvin Reilly DO [address] [place] [id number] PCP - General 04/21/20 Community Development Manager Relationship Specialty Start Date End Date Kelvin Reilly DO [address] [place] [id number] PCP - General 04/21/20 Community Development Manager Relationship Specialty Start Date End Date Kaycee Araujo MD [address] [place] [address] PCP - General Internal Medicine 12/21/24 Community Development Manager Relationship Specialty Start Date End Date Kaycee Araujo MD [address] [place] [address] PCP - General Internal Medicine 12/21/24 Care Team (unrecognized sect ion and content) Care Team Personnel Name: KAYCEE ARAUJO DO Position: P4 Physician - Primary Care Member Role: Primary Care Physician Address: Address: [address] [place] [address] Name: Desiree Hall RN Position: P3 Treater Helper/Facilities Maintenance Technician Member Role: Treater Helper Name: Hillary Manjarrez Position: Quality Review Member Role: Treater Helper Name: Ena Martinez Position: Quality Review Member Role: Treater Helper Name: ELIANE HENSON MD Position: P4 Physician - Endocrinology Member Role: Yarn Sizer Address: Address: [address] [place] [address], [address] Name: SHANDRA ALONSO MD Position: P3 Physician - Surgery Member Role: OBGYN Address: Address: [place] [address] [place], [place] [id number]- Name: Bronson Marcos Member Role: National Sales Consultant Name: NICHELLE ALMAGUER MD Position: P4 Physician - Psychiatrist Member Role: Psychiatrist Address: Address: [address] [place] [address] Name: Cinthya Beebe RN Position: ED RN Member Role: ED RN Name: JCOELYN ROWE MD Position: ED Physician Member Role: ED Physician Address: Address: [address] [place] [address]- Name: KATELYNN HECK PA-C Position: ED Physician General Warehouse Associate Member Role: ED PA Address: Address: [address] [place] [address] [address]- Name: RAUDEL Tapia Position: P3 pediatric physician Member Role: Senior Publications Specialist Name: KATELYNN FRIED MD Position: Resident Member Role: Resident Address: Address: [address] [facility] [place] [address]- Care Team Related Persons Name: KADE HUYNH Name: MARIO GONZALEZ Bety Address: Home [address] [place] [place], [place] [id number] Address: Temporary [address] [place] [phone] Name: DO ROSA Address: Home [address] [place] [phone] Name: DO ROSA Address: Home [address] [place] [phone] Name: PEPITO ROSA Address: Home [address] [place], [place] [id number] Goals (unrecognized section and content) Goals may be documented in a n alternate section Source Comments (unrecognize d section and content) In the event this informatio n is protected by the [facility] Confidentiality of Alcohol and Drug Abuse Patient Records regulations: The Federal rules restrict any use of the information to criminally investigate or prosecute any alcohol or drug abuse patient.[facility] the event this information is protected by the Federal Confidentiality of Alcohol and Drug Abuse Patient Records regulations: The Federal rules restrict any use of the information to criminally investigate or prosecute any alcohol or drug abuse patient.[facility] FOR RECORDS PERTAINING TO PATIENTS WHO ARE [...] BE BASED ON THE PRIMARY CLINICAL RECORDS. [employer] [facility]. provides no warranty or guarantee of the accuracy or completeness of information in this document.
== END | disposition home or self-care (01) ==
LOC: RAD 09:25
PROVIDERS: PCP Student in an Organized Health Care Education/Training Program; Referring Provider Nurse Practitioner Acute Care; Visit Provider Nurse Practitioner Acute Care
DX: K59.00 Constipation, unspecified (principal); R11.2 Nausea with vomiting, unspecified
CPT/HCPCS: 74018